=== PATIENT | female | born 1965 | race Caucasian/White ===

== ENCOUNTER → 2016-09-25 | Outpatient (CLI) | payer OTHER ==
[~2016-09-25] MED LIST: IBUP-1050 PO; LEVO125T4 PO; OMEP20CA9 PO; OPTIRAY 320 IV PRN; [UNRECOGNIZED DRUG - CODE] PO
--- NOTE | 2016-09-25 15:25 | DIAGNOSTIC IMAGING REPORT ---
CT OF THE ABDOMEN AND PELVIS WITH CONTRAST CLINICAL HISTORY: Left upper quadrant abdominal pain, bloating and elevated alkaline phosphatase. COMPARISON STUDY: CT of the abdomen and pelvis March 08, 2014 and renal ultrasound August 31, 2014. TECHNIQUE: Following IV administration of 120 mL of Optiray-320, axial images of the abdomen and pelvis were obtained from the lung bases to the proximal femurs. Images were reviewed in the axial, sagittal, and coronal planes. IV contrast was administered without complication. A dose lowering technique was utilized adhering to the principles of ALARA. Oral contrast was administered. CT DOSE: 649.72 mGycm FINDINGS: Geographic hypodensity within the liver, most evident within the left hepatic lobe reflects fatty infiltration. A few subcentimeter hepatic lesions are too small to characterize but likely benign. The spleen, adrenal glands, kidneys and pancreas are unremarkable. There is no hydronephrosis. No biliary or pancreatic ductal dilatation is present. There is no peripancreatic or pericholecystic infiltration. There is no evidence for a bowel obstruction. The appendix is normal. There are scattered colonic diverticula without evidence for acute diverticulitis. Submucosal fat deposition within the colon is noted. There is no lymphadenopathy. No suspicious skeletal lesions are identified. No free air is evident. There is no fluid collection to suggest an abscess. IMPRESSION: 1. No acute process within the abdomen or pelvis. 2. Fatty infiltration of the liver. 3. Submucosal fat deposition within portions of the colon, a nonspecific finding which can be seen in setting of chronic inflammation. No CT evidence of acute colitis. Electronically signed by: Heber Lugo M.D. 09/25/2016 3:23 PM Dictated Date/Time: 09/25/2016 3:16 PM
== END | disposition home or self-care (01) ==
LOC: C.CTS 14:00
PROVIDERS: ATTEND Physician Assistant
DX: R10.12 Left upper quadrant pain (principal); R14.0 Abdominal distension (gaseous); R74.8 Abnormal levels of other serum enzymes; K76.0 Fatty (change of) liver, not elsewhere classified

== ENCOUNTER → 2016-12-05 | Outpatient (CLI) | payer OTHER ==
[~2016-12-05] MED LIST changes: -OPTIRAY 320 IV PRN
--- NOTE | 2016-12-06 08:13 | MAMMOGRAPHY REPORT ---
BILATERAL DIGITAL SCREENING MAMMOGRAM TOMOSYNTHESIS WITH CAD: 12/05/2016 CLINICAL HISTORY: Routine screening. Patient has no complaints. TECHNIQUE: Breast tomosynthesis in addition to standard 2D mammography was performed. Current study was also evaluated with a Computer Aided Detection (CAD) system. COMPARISON: Comparison is made to exams dated: 10/23/2013 mammogram and 10/02/2013 mammogram - [facility]. BREAST COMPOSITION: The tissue of both breasts is heterogeneously dense, which may obscure small mas ses. FINDINGS: No suspicious mass, architectural distortion or cluster of microcalcifications is seen. IMPRESSION: ACR BI-RADS CATEGORY 1: NEGATIVE There is no mammographic evidence of malignancy. A 1 year screening mammogram is recommended. The pa tient will receive written notification of the results. Approximately 10% of breast cancers are not detected with mammography. A negative mammographic report should not delay biopsy if a clinically suggestive mass is present. Shannen reyes/penaubrie:12/05/2016 17:33:02 Stone Unloader: Daphney ISAACS(Fuentes)(Chinmay)(BD), [facility] letter sent: Normal 1/2 BI-RADS Code: ACR BI-RADS Category 1: Negative
== END | disposition home or self-care (01) ==
LOC: C.MAMM 12:20
PROVIDERS: ATTEND Physician Assistant
DX: Z12.31 Encounter for screening mammogram for malignant neoplasm of breast (principal)

== ENCOUNTER 2017-01-21 11:06 | Emergency (ER) | payer OTHER ==
[~2017-01-21] VITALS: Ht 165.1 cm; Wt 75.0 kg
[~2017-01-21 11:06] MED LIST changes: -LEVO125T4 PO; +LEVO125T5 PO
[2017-01-21 11:15] VITALS: TEMP 36.6; Ht 165.1 cm; Wt 75.0 kg
[2017-01-21] MEDS ORDERED: LISI20TA3 PO (11:30)
[2017-01-21] MEDS ORDERED: LEVO100T PO (11:30)
[2017-01-21] MEDS ORDERED: AMIT75TA2 PO (11:31)
[2017-01-21 12:02] LABS: URINE APPEARANCE CLOUDY (CLEAR); URINE COLOR DK YELLOW; URINE EPITHELIAL CELL AUTO >30 /lpf (0-5); URINE NITRITE NEG (NEG); URINE SPECIFIC GRAVITY 1.025 (1.000-1.030); UROBILINOGEN NEG (NEG); ZZUR CULT IF INDIC CLEAN CATCH YES
[2017-01-21 12:08] LABS: BASO % 0.6 %; BASO ABS # 0.04 K/uL (0-0.2); COMPLETE YES; EOS % 3.2 %; HEMATOCRIT 45.7 % (37-47); IG% 0.3 %; LYMPH % 13.8 %; LYMPH ABS # 0.95 K/uL (1.2-3.4); MEAN CELL VOLUME 98.3 fL (80-100); MEAN CORPUSCULAR HEMOGLOBIN 33.3 pg (25-34); MEAN CORPUSCULAR HGB CONC 33.9 g/dl (32-36); MEAN PLATELET VOLUME 10.1 fL (7.4-10.4); MONO % 12.8 %; NEUT % 69.3 %; PLATELET COUNT 274 K/uL (130-400); RED BLOOD COUNT 4.65 M/uL (4.2-5.4); WHITE BLOOD COUNT 6.88 K/uL (4.8-10.8)
[2017-01-21 12:15] LABS: MANUAL MICROSCOPIC REQUIRED? NO; REVIEW REQ? NO; URINE BILIRUBIN NEG (NEG)
[2017-01-21 12:19] LABS: BUN/CREATININE RATIO 5.8 (10-20); CALCIUM 9.1 mg/dl (8.5-10.1); CREATININE 0.84 mg/dl (0.60-1.20); POTASSIUM 3.3 mmol/L (3.5-5.1)
[2017-01-21 12:22] LABS: ALB/GLOB RATIO 0.8 (0.9-2)
[2017-01-21] MEDS ORDERED: ONDANSETRON INJ 2 MG/ML 2 ML VIAL IV STA (12:26)
[2017-01-21] MEDS ORDERED: HYDROmorphone INJ 0.5 MG/0.5 ML SYR IV STA ×2 (12:26→15:07)
[2017-01-21] MEDS ORDERED: OPTIRAY 320 IV PRN (13:00)
--- NOTE | 2017-01-21 13:35 | DIAGNOSTIC IMAGING REPORT ---
CT ABD/PELVIS IV CONTRAST ONLY CLINICAL HISTORY: Left lower quadrant abdominal pain HISTORY OF DIVERTICULITIS COMPARISON STUDY: 09/25/2016 TECHNIQUE: Following the IV administration of 94 mL of Optiray-320, CT scan of the abdomen and pelvis was performed from the lung bases to the proximal femurs. Images are reviewed in the axial, sagittal, and coronal planes. IV contrast was administered without complication. A dose lowering technique was utilized adhering to the principles of ALARA. CT DOSE: 361.80 mGy.cm FINDINGS: Lower chest: The heart is normal in size and configuration, without pericardial effusion. The lung bases and pleural spaces are clear. Liver: There is hepatic steatosis. No focal masses are visualized. Gallbladder: Unremarkable. Spleen: Normal in size and attenuation. Pancreas: Unremarkable. Adrenal glands: Unremarkable. Kidneys: There is symmetric renal cortical enhancement. The kidneys are normal in size without hydronephrosis. Bowel: There are no transition zones indicate bowel obstruction. There is no acute diverticulitis. The appendix appears normal. There is borderline bowel wall thickening involving the ascending colon Peritoneum: There is no intraperitoneal free air or abdominal ascites. Vasculature: The abdominal aorta is normal in course and caliber. Adenopathy: None. Pelvic viscera: The bladder, and pelvic viscera are unremarkable. Skeletal structures: No destructive osseous lesions are seen. IMPRESSION: 1. No evidence of bowel obstruction. No evidence of free air 2. Normal appendix. No evidence of acute diverticulitis 3. Hepatic steatosis 4. Borderline bowel wall thickening involving the ascending colon Electronically signed by: Delvin Fisher M.D. 01/21/2017 1:33 PM Dictated Date/Time: 01/21/2017 1:29 PM
[2017-01-21] MEDS ORDERED: AMOXICILLIN/CLAVULANATE TAB 875 MG TAB PO ONE (15:15)
[2017-01-21] MEDS ORDERED: AMOX875T PO (15:35)
[2017-01-21] MEDS ORDERED: TRAM-453 PO (15:35)
[2017-01-21] MEDS ORDERED: DICY20TA35 PO (15:35)
[2017-01-21] MEDS ORDERED: KETOROLAC TROMETHAMINE 30 MG/ML VIAL IV STA (16:04)
[2017-01-21 16:06] VITALS: BP 153/100; PULSE 98; O2SAT 97
--- NOTE | 2017-01-21 18:16 | EMERGENCY ROOM VISIT NOTE ---
History Report prepared by Maddie: Nay Marshall Under the Supervision of: Dr. Eder Saavedra M.D. First contact with patient: 11:55 Chief Complaint: ABDOMINAL PAIN Stated Complaint: SEVERE LEFT ABDOMINAL PAIN,LEFT HIP AND SIDE PAIN Nursing Triage Summary: patient to ed via triage for abdominal pain x three days, states "I have a hx of diverticulosis, and have been getting worsening pain in the lower left side, its wrapping to my back a little now" History of Present Illness The patient is a 51 year old female who presents to the Emergency Room with complaints of worsening left lower abdominal pain beginning 3 days ago. The patient describes the pain as contractions. She also complains of fevers and chills. The patient reports that she has had blood in her stool today but that she has internal and external hemorrhoids. She also reports having constipation. Pt denies LOC, headache, diaphoresis, visual changes, neck pain, chest pain, breathing difficulties, nausea, vomiting, back pain, melena, urinary symptoms, numbness, weakness, lymphadenopathy, rash, or other complaints. She reports a history of diverticulosis. Source of History: patient Onset: 3 days ago Position: abdomen (LLQ) Timing: worsening Associated Symptoms: + fevers, + chills, No chest pain Review of Systems See HPI for pertinent positives and negatives. A total of ten systems were reviewed and were otherwise negative. Past Medical & Surgical Medical Problems: (1) Acid reflux (2) Hypertension Family History Cancer Diabetes mellitus FH: heart disease Hypertension Social History Smoking Status: Never Smoker Marital Status: in relationship Housing Status: lives with significant other Current/Historical Medications Scheduled Amitriptyline Hcl (Elavil), 75 MG PO HS Amoxicillin & Pot Clavulanate (Augmentin 875-125 mg), 875 MG PO BID Levothyroxine Sodium (Synthroid), 100 MCG PO DAILY Lisinopril (Prinivil), 20 MG PO DAILY Omeprazole (Prilosec), 20 MG PO QAM Scheduled PRN Dicyclomine Hcl (Bentyl), 20 MG PO QID PRN for Pain Nifedipine (Nifedipine), 10 MG PO HS PRN for . Tramadol Hcl (Ultram), 1 TAB PO Q6H PRN for Pain Allergies Coded Allergies: No Known Allergies (Verified , 01/21/17) Physical Exam Vital Signs Date Time Temp Pulse Resp B/P (MAP) Pulse Ox O2 Delivery O2 Flow Rate FiO2 01/21/17 16:06 98 16 153/100 97 01/21/17 15:20 102 18 158/112 91 Room Air 01/21/17 14:01 94 18 150/99 96 01/21/17 11:15 36.6 108 20 130/81 100 Room Air Physical Exam GENERAL: Awake, alert, uncomfortable-appearing, in no distress HENT: Normocephalic, atraumatic. Oropharynx unremarkable. EYES: Normal conjunctiva. Sclera non-icteric. NECK: Supple. No nuchal rigidity. FROM. No JVD. RESPIRATORY: Clear to auscultation. CARDIAC: Regular rate, normal rhythm. Extremities warm and well perfused. Pulses equal. ABDOMEN: Soft, non-distended. Left lower quadrant tenderness. No rebound or guarding. No masses. RECTAL: Deferred. MUSCULOSKELETAL: Chest examination reveals no tenderness. The back is symmetrical on inspection without obvious abnormality. There is left CVA tenderness to palpation. No joint edema. LOWER EXTREMITIES: Calves are equal size bilaterally and non-tender. No edema. No discoloration. NEURO: Normal sensorium. No sensory or motor deficits noted. SKIN: No rash or jaundice noted. Medical Decision & Procedures ER Provider Diagnostic Interpretation: Radiology results as stated below per my review and radiologist interpretation: CT ABD/PELVIS IV CONTRAST ONLY CLINICAL HISTORY: Left lower quadrant abdominal pain HISTORY OF DIVERTICULITIS COMPARISON STUDY: 09/25/2016 TECHNIQUE: Following the IV administration of 94 mL of Optiray-320, CT scan of the abdomen and pelvis was performed from the lung bases to the proximal femurs. Images are reviewed in the axial, sagittal, and coronal planes. IV contrast was administered without complication. A dose lowering technique was utilized adhering to the principles of ALARA. CT DOSE: 361.80 mGy.cm FINDINGS: Lower chest: The heart is normal in size and configuration, without pericardial effusion. The lung bases and pleural spaces are clear. Liver: There is hepatic steatosis. No focal masses are visualized. Gallbladder: Unremarkable. Spleen: Normal in size and attenuation. Pancreas: Unremarkable. Adrenal glands: Unremarkable. Kidneys: There is symmetric renal cortical enhancement. The kidneys are normal in size without hydronephrosis. Bowel: There are no transition zones indicate bowel obstruction. There is no acute diverticulitis. The appendix appears normal. There is borderline bowel wall thickening involving the ascending colon Peritoneum: There is no intraperitoneal free air or abdominal ascites. Vasculature: The abdominal aorta is normal in course and caliber. Adenopathy: None. Pelvic viscera: The bladder, and pelvic viscera are unremarkable. Skeletal structures: No destructive osseous lesions are seen. IMPRESSION: 1. No evidence of bowel obstruction. No evidence of free air 2. Normal appendix. No evidence of acute diverticulitis 3. Hepatic steatosis 4. Borderline bowel wall thickening involving the ascending colon Electronically signed by: Delvin Fisher M.D. 01/21/2017 1:33 PM Dictated Date/Time: 01/21/2017 1:29 PM Laboratory Results 01/21/17 11:45 Red Blood Count 4.65, Mean Corpuscular Volume 98.3, Mean Corpuscular Hemoglobin 33.3, Mean Corpuscular Hemoglobin Concent 33.9, Mean Platelet Volume 10.1, Neutrophils (%) (Auto) 69.3, Lymphocytes (%) (Auto) 13.8, Monocytes (%) (Auto) 12.8, Eosinophils (%) (Auto) 3.2, Basophils (%) (Auto) 0.6, Neutrophils # (Auto ) 4.77, Lymphocytes # (Auto) 0.95, Monocytes # (Auto) 0.88, Eosinophils # (Auto ) 0.22, Basophils # (Auto) 0.04 01/21/17 11:45 Test 01/21/17 11:45 White Blood Count 6.88 K/uL (4.8-10.8) Red Blood Count 4.65 M/uL (4.2-5.4) Hemoglobin 15.5 g/dL (12.0-16.0) Hematocrit 45.7 % (37-47) Mean Corpuscular Volume 98.3 fL (80-100) Mean Corpuscular Hemoglobin 33.3 pg (25-34) Mean Corpuscular Hemoglobin Concent 33.9 g/dl (32-36) Platelet Count 274 K/uL (130-400) Mean Platelet Volume 10.1 fL (7.4-10.4) Neutrophils (%) (Auto) 69.3 % Lymphocytes (%) (Auto) 13.8 % Monocytes (%) (Auto) 12.8 % Eosinophils (%) (Auto) 3.2 % Basophils (%) (Auto) 0.6 % Neutrophils # (Auto) 4.77 K/uL (1.4-6.5) Lymphocytes # (Auto) 0.95 K/uL (1.2-3.4) Monocytes # (Auto) 0.88 K/uL (0.11-0.59) Eosinophils # (Auto) 0.22 K/uL (0-0.5) Basophils # (Auto) 0.04 K/uL (0-0.2) RDW Standard Deviation 43.9 fL (36.4-46.3) RDW Coefficient of Variation 12.3 % (11.5-14.5) Immature Granulocyte % (Auto) 0.3 % Immature Granulocyte # (Auto) 0.02 K/uL (0.00-0.02) Urine Color DK YELLOW Urine Appearance CLOUDY (CLEAR) Urine pH 6.0 (4.5-7.5) Urine Specific Bryan 1.025 (1.000-1.030) Urine Protein NEG (NEG) Urine Glucose (UA) NEG (NEG) Urine Ketones TRACE (NEG) Urine Occult Blood NEG (NEG) Urine Nitrite NEG (NEG) Urine Bilirubin NEG (NEG) Urine Urobilinogen NEG (NEG) Urine Leukocyte Esterase SMALL (NEG) Urine WBC (Auto) 5-10 /hpf (0-5) Urine RBC (Auto) 0-4 /hpf (0-4) Urine Hyaline Casts (Auto) 1-5 /lpf (0-5) Urine Epithelial Cells (Auto) >30 /lpf (0-5) Urine Bacteria (Auto) 1+ (NEG) Anion Gap 6.0 mmol/L (3-11) Est Creatinine Clear Calc Drug Dose 80.3 ml/min Estimated GFR () 93.3 Estimated GFR (Non- 80.5 BUN/Creatinine Ratio 5.8 (10-20) Calcium Level 9.1 mg/dl (8.5-10.1) Total Bilirubin 0.4 mg/dl (0.2-1) Aspartate Amino Transf (AST/SGOT) 67 U/L (15-37) Alanine Aminotransferase (ALT/SGPT) 43 U/L (12-78) Alkaline Phosphatase 133 U/L (45-117) Total Protein 9.6 gm/dl (6.4-8.2) Albumin 4.4 gm/dl (3.4-5.0) Globulin 5.2 gm/dl (2.5-4.0) Albumin/Globulin Ratio 0.8 (0.9-2) Lipase 196 U/L (73-393) Laboratory results reviewed by me Medications Administered Medications (Trade) Dose Ordered Sig/Milly Route Start Time Stop Time Status Last Admin Dose Admin Hydromorphone HCl (Dilaudid Inj) 0.5 mg NOW STAT IV 01/21/17 12:26 01/21/17 12:27 DC 01/21/17 12:45 0.5 MG Ondansetron HCl (Zofran Inj) 4 mg NOW STAT IV 01/21/17 12:26 01/21/17 12:27 DC 01/21/17 12:45 4 MG Amoxicillin/ Clavulanate Potassium (Augmentin Tab) 875 mg ONE ONCE PO 01/21/17 15:15 01/21/17 15:16 DC 01/21/17 15:15 875 MG Hydromorphone HCl (Dilaudid Inj) 0.5 mg NOW STAT IV 01/21/17 15:07 01/21/17 15:10 DC 01/21/17 15:07 0.5 MG Ketorolac Tromethamine (Toradol Inj) 15 mg NOW STAT IV 01/21/17 16:04 01/21/17 16:06 DC 01/21/17 16:10 15 MG ED Course 1222: The patient was evaluated in room C5. A complete history and physical exam was performed. 1226: Ordered Zofran Inj 4 mg IV, Dilaudid Inj 0.5 mg IV. 1507: Ordered Dilaudid Inj 0.5 mg IV. 1515: Ordered Augmentin Tab 875 mg PO. 1604: Ordered Toradol Inj 15 mg IV. 1610: I reevaluated the patient. Discussed results and discharge instructions: She verbalized understanding and agreement. The patient is ready for discharge. Medical Decision Triage Nursing notes reviewed. The patient's presentation and history were concerning for flank pain. Etiologies such as kidney stone, UTI, appendicitis, diverticulitis, obstruction , inflammatory bowel disease, PUD, biliary pathology, pancreatitis, mesenteric ischemia, aortic pathology, infections, genitourinary, perforated viscus, as well as others were entertained. The patient was evaluated. She was given a dose of IV Dilaudid and Zofran for symptom control. She was counseled on alcohol use. The patient had blood work obtained. Urinalysis ordered. Urinalysis was somewhat concerning for infection. Her CT scan revealed some bowel wall thickening but more so on the right side. There is no clear evidence of diverticulitis. No kidney stones noted. Patient did require second dose of Dilaudid and was also given a dose of Toradol. She was treated with oral Augmentin. She does note a long history of bowel related issues including constipation and cramping. The patient will be treated with tramadol, Bentyl, and Augmentin as an outpatient. She has previous referral to gastroenterology at [facility] and I encouraged her to follow up again. She has not had a colonoscopy. She will also follow-up with her primary physician. If she worsens in any way she will be back. I gave my usual and customary discussion regarding this issue. By the evaluation outlined above other emergent etiologies such as those listed in the differential, as well as others, were deemed relatively unlikely. The patient was educated about the findings as listed above. All questions were answered and the patient was pleased with the treatment. Return instructions were outlined and the patient was discharged in stable condition. The patient was referred to GI and PCP for follow-up for a recheck of the current condition. Medication Reconcilliation Current Medication List: was personally reviewed by me Blood Pressure Screening Patient's blood pressure: Normal blood pressure Impression Primary Impression: Flank pain Additional Impression: UTI (urinary tract infection) Scribe Attestation The scribe's documentation has been prepared under my direction and personally reviewed by me in its entirety. I confirm that the note above accurately reflects all work, treatment, procedures, and medical decision making performed by me. Departure Information Dispostion Home / Self-Care Prescriptions Tramadol Hcl (ULTRAM) 50 Mg Tab 1 TAB PO Q6H Y for Pain, #12 TAB Prov: Eder Saavedra MD 01/21/17 Dicyclomine Hcl (BENTYL) 20 Mg Tab 20 MG PO QID Y for Pain, #20 TAB Prov: Eder Saavedra MD 01/21/17 Amoxicillin & Pot Clavulanate (Augmentin 875-125 mg) 1 Tab Tab 875 MG PO BID for 7 Days, #14 TAB Prov: Eder Saavedra MD 01/21/17 Referrals No Doctor, Assigned (PCP) Forms Call Back Authorization, HOME CARE DOCUMENTATION FORM, IMPORTANT VISIT INFORMATION Patient Instructions [facility] Additional Instructions DO NOT drive, drink alcohol, operate machinery, or perform dangerous activities today. You were given medications in the ER that can affect your ability to safely function or operate a vehicle. Amoxicillin Clavulanate (Augmentin) 875mg: Take one pill twice daily for 7 days for your bowel infection. All antibiotics can cause diarrhea. If this occurs and you feel worse or it does not resolve in 1-2 days follow up with your doctor or return to the Emergency Department as this could be signs of serious underlying problems. Any medication can cause an allergic reaction, stop the pills immediately and return to the ER for rash, hives, breathing difficulties, or swelling. Bentyl(dicyclomine) 20 mg: Take one tablet 4 times daily as needed for abdominal pain. If 20 mg does not seem to be enough you may increase to 40 mg 4 times daily after one week. If you do not have any results with this medication do not continue past 2 weeks from the start date. Discontinue this medication if you develop any rash, itching, increased abdominal pain, heartburn , increased nausea, constipation, or as needed. Tramadol 50 m pill every four hours as needed for breakthrough pain. Avoid alcohol, operating machinery or dangerous equipment, working on ladders or roofs , DRIVING, or situations where being under the influence may be dangerous. It is recommended to use a stool softener such as Colace, 100mg twice daily while taking this medication to avoid constipation. Ibuprofen(Motrin, Advil) may be used for fever or pain. Use 600mg every six hours as needed. Take with food. Avoid using more than 2400mg in a 24 hour period. Do not use 2400mg per day for more than three consecutive days without physician direction. Prolonged inappropriate use can lead to stomach upset or ulcers. (AND/OR) Acetaminophen(Tylenol) may be used for fever or pain. Use 1000mg every six hours as needed. Avoid using more than 4000mg in a 24 hour period. Rest and drink plenty of fluids as tolerated. Slow sips of water or sports drinks are recommended instead of large amounts all at once. Continue current medications. Once your stomach is settled start with a clear liquid diet (jello, soup broth, etc.) and then advance as tolerated. You should avoid full, heavy meals for about 24 hrs from the time your symptoms resolved. Return to the ER immediately for worsening or persistent abdominal pain, vomiting, fevers, chest pains, difficulty breathing, black or bloody stools, worsening of your condition, or as needed. Follow up with your primary physician in 2-3 days for a recheck of your current condition. Follow-up with michelle BRUCE. The numbers listed below under Dr. aguilar. Problem Qualifiers
== END 2017-01-21 16:17 | disposition home or self-care (01) ==
LOC: C.EDB 11:07 → C.EDC 16:17
DX: R10.32 Left lower quadrant pain (principal); N39.0 Urinary tract infection, site not specified; R50.9 Fever, unspecified; K59.00 Constipation, unspecified; K21.9 Gastro-esophageal reflux disease without esophagitis; I10 Essential (primary) hypertension; Z79.899 Other long term (current) drug therapy; Z87.19 Personal history of other diseases of the digestive system; Z82.49 Family history of ischemic heart disease and other diseases of the circulatory system; Z83.3 Family history of diabetes mellitus

== ENCOUNTER 2017-01-25 12:36 | Inpatient (IN) | payer OTHER ==
[~2017-01-25] VITALS: Ht 165.1 cm; Wt 76.3 kg
[~2017-01-25 12:36] MED LIST changes: +AMIT75TA2 PO; +AMOX875T PO; +DICY20TA35 PO; -IBUP-1050 PO; +LEVO100T PO; -LEVO125T5 PO; +LISI20TA3 PO; +TRAM-453 PO
[2017-01-25] MEDS ORDERED: ONDANSETRON INJ 2 MG/ML 2 ML VIAL IV STA (13:03)
--- NOTE | 2017-01-25 13:15 | EMERGENCY ROOM VISIT NOTE ---
History First contact with patient: 12:51 Chief Complaint: ABDOMINAL PAIN Stated Complaint: SEVERE PAIN IN L LOWER/UPPER ABD HIP/BACK AREA Nursing Triage Summary: pt presents for evaluation of continued abdominal pain, pt eval earlier in the week for same symptoms. History of Present Illness The patient is a 51 year old female who presents to the Emergency Room with complaints of diffuse abdominal pain that has been going on for approximately 10 days. The patient was seen in the emergency department 5 days ago. Lab work and a CT scan were performed. She was told that she might have an infection in her colon. She was started on antibiotics. She was also given Ultram for pain. The pain has not gotten any better. She has had hot and cold sweats. She did not take her temperature at home. She reports being nauseated from the Ultram. She has had small, loose bowel movements. She denies any blood in her stool. Review of Systems 10 system review performed and negative unless noted in HPI or below Past Medical/Surgical History Medical Problems: (1) Acid reflux (2) Acid reflux (3) Hypertension (4) Hypertension (5) possible sepsis, paniagua colitis, UTI Family History Cancer Cancer Diabetes mellitus Diabetes mellitus FH: heart disease FH: heart disease Hypertension Hypertension Social History Smoking Status: Never Smoker Alcohol Use: occasionally Drug Use: none Marital Status: in relationship Housing Status: lives with significant other Occupation Status: unemployed Current/Historical Medications Scheduled Amitriptyline Hcl (Elavil), 75 MG PO HS Amoxicillin & Pot Clavulanate (Augmentin 875-125 mg), 875 MG PO BID Levothyroxine Sodium (Synthroid), 100 MCG PO DAILY Lisinopril (Prinivil), 20 MG PO DAILY Omeprazole (Prilosec), 20 MG PO QAM Scheduled PRN Dicyclomine Hcl (Bentyl), 20 MG PO QID PRN for Pain Ibuprofen Tab (Advil), 200-600 MG PO Q4H PRN for Pain Nifedipine (Nifedipine), 10 MG PO HS PRN for . Allergies Coded Allergies: Tramadol (Unverified Adverse Reaction, Unknown, NAUSEA, 01/25/17) Physical Exam Vital Signs Date Time Temp Pulse Resp B/P (MAP) Pulse Ox O2 Delivery O2 Flow Rate FiO2 01/25/17 16:35 100 20 121/87 100 Room Air 01/25/17 14:52 93 18 127/86 99 Room Air 01/25/17 14:04 89 18 101/66 95 Room Air 01/25/17 12:48 36.7 100 20 125/93 93 Room Air Physical Exam VITALS: Vitals are noted on the nurse's note and reviewed by myself. Vital signs stable. GENERAL: 51-year-old female, in mild discomfort, SKIN: The skin was without rashes, erythema, edema, or bruising. HEAD: Normocephalic atraumatic. MOUTH: Mucous membranes moist NECK: Supple without nuchal rigidity No JVD. HEART: Regular rate and rhythm without murmurs gallops or rubs. LUNGS: Clear to auscultation bilaterally without wheezes, rales or rhonchi. No accessory muscle use. ABDOMEN: Positive bowel sounds x 4.Soft, tenderness to palpation particularly in the epigastric and left lower quadrant. No guarding or rebound tenderness. MUSCULOSKELETAL: No muscle atrophy, erythema, or edema noted.. Strength 5/5 throughout. NEURO: Patient was alert and oriented to person place and time. Normal sensation to touch. No focal neurological deficits. Medical Decision & Procedures ER Provider Diagnostic Interpretation: CT abdomen and pelvis with IV and oral contrast Patient Name: MARIBEL POWERS Unit Number: [id number] Dictated: 01/25/171629 Transcribed: 01/25/171629 ARG Printed Date/Time: [~ rep prt dt]/[~ rep prt tm] [~ rep ct labl] - [~ rep ct ivnm] [facility] [place] [place] [address] Dictated: 01/25/171629 Transcribed: 01/25/171629 ARG Printed Date/Time: [~ rep prt dt]/[~ rep prt tm] [~ rep ct labl] - [~ rep ct ivnm] IMPRESSION: 1. Progressive colonic wall thickening which now involves the entire colon. The findings are indicative of a pancolitis 2. Slight increased prominence of a nonspecific 19 mm hypodensity within the medial segment of the left hepatic lobe. Electronically signed by: Delvin Fisher M.D. 01/25/2017 4:38 PM Dictated Date/Time: 01/25/2017 4:30 PM The status of this report is Signed. Draft = Not yet reviewed or approved by Radiologist. Signed = Reviewed and approved by Radiologist. <AttendingPhy></AttendingPhy> <FamilyPhy>Uzma Garcia PA-C</FamilyPhy> < PrimaryPhy>Uzma Garcia PA-C</PrimaryPhy> <UnitNumber>[id number]</ UnitNumber> <VisitNumber>[id number]</VisitNumber> <PatientName>MARIBEL POWERS Anmol< /PatientName> <DateOfBirth>1965</DateOfBirth> <Location>C.EDB</Location> < ServiceDate>01/25/17</ServiceDate> <MNE>ESINDI</MNE> <OrderingPhy>Trish Long PA-C</OrderingPhy> <OrderingPhyMNE>f rep ord dr hernandez</OrderingPhyMNE> < DictatingPhyMNE>f rep dict dr hernandez</DictatingPhyMNE> <CCListMNE>f rep ct mne</ CCListMNE> <AdmittingPhyMNE>f pt admit dr hernandez</AdmittingPhyMNE> <AttendingPhyMNE >f pt attend dr hernandez</AttendingPhyMNE> <ConsultingPhyMNE>f pt consult dr hernandez</ConsultingPhyMNE> <FamilyPhyMNE>f pt fam dr hernandez</FamilyPhyMNE> <OtherPhyMNE>f pt other dr hernandez</OtherPhyMNE> < PrimaryPhyMNE>f pt prim care dr hernandez</PrimaryPhyMNE> <ReferringPhyMNE>f pt referring dr hernandez</ReferringPhyMNE> Laboratory Results 01/25/17 13:16 Red Blood Count 4.11, Mean Corpuscular Volume 95.4, Mean Corpuscular Hemoglobin 33.8, Mean Corpuscular Hemoglobin Concent 35.5, Mean Platelet Volume 10.5, Neutrophils (%) (Auto) 83.1, Lymphocytes (%) (Auto) 4.2, Monocytes (%) (Auto) 11.1, Eosinophils (%) (Auto) 0.8, Basophils (%) (Auto) 0.2, Neutrophils # (Auto ) 15.20, Lymphocytes # (Auto) 0.76, Monocytes # (Auto) 2.03, Eosinophils # (Auto ) 0.15, Basophils # (Auto) 0.03 01/25/17 13:16 01/25/17 13:59 Test 01/25/17 13:16 01/25/17 13:59 01/25/17 14:45 01/25/17 17:02 White Blood Count 18.28 K/uL (4.8-10.8) Red Blood Count 4.11 M/uL (4.2-5.4) Hemoglobin 13.9 g/dL (12.0-16.0) Hematocrit 39.2 % (37-47) Mean Corpuscular Volume 95.4 fL (80-100) Mean Corpuscular Hemoglobin 33.8 pg (25-34) Mean Corpuscular Hemoglobin Concent 35.5 g/dl (32-36) Platelet Count 162 K/uL (130-400) Mean Platelet Volume 10.5 fL (7.4-10.4) Neutrophils (%) (Auto) 83.1 % Lymphocytes (%) (Auto) 4.2 % Monocytes (%) (Auto) 11.1 % Eosinophils (%) (Auto) 0.8 % Basophils (%) (Auto) 0.2 % Neutrophils # (Auto) 15.20 K/uL (1.4-6.5) Lymphocytes # (Auto) 0.76 K/uL (1.2-3.4) Monocytes # (Auto) 2.03 K/uL (0.11-0.59) Eosinophils # (Auto) 0.15 K/uL (0-0.5) Basophils # (Auto) 0.03 K/uL (0-0.2) RDW Standard Deviation 41.5 fL (36.4-46.3) RDW Coefficient of Variation 11.9 % (11.5-14.5) Immature Granulocyte % (Auto) 0.6 % Immature Granulocyte # (Auto) 0.11 K/uL (0.00-0.02) Anion Gap 7.0 mmol/L (3-11) Est Creatinine Clear Calc Drug Dose 82.8 ml/min Estimated GFR () 97.5 Estimated GFR (Non- 84.1 BUN/Creatinine Ratio 9.5 (10-20) Calcium Level 8.8 mg/dl (8.5-10.1) Total Bilirubin 0.8 mg/dl (0.2-1) Alanine Aminotransferase (ALT/SGPT) 19 U/L (12-78) Alkaline Phosphatase 134 U/L (45-117) Total Protein 8.2 gm/dl (6.4-8.2) Albumin 3.3 gm/dl (3.4-5.0) Globulin 4.9 gm/dl (2.5-4.0) Albumin/Globulin Ratio 0.7 (0.9-2) Lipase 553 U/L (73-393) Aspartate Amino Transf (AST/SGOT) 10 U/L (15-37) Urine Color DK YELLOW Urine Appearance CLOUDY (CLEAR) Urine pH 5.5 (4.5-7.5) Urine Specific [place] 1.027 (1.000-1.030) Urine Protein 2+ (NEG) Urine Glucose (UA) NEG (NEG) Urine Ketones 1+ (NEG) Urine Occult Blood NEG (NEG) Urine Nitrite POS (NEG) Urine Bilirubin NEG (NEG) Urine Urobilinogen NEG (NEG) Urine Leukocyte Esterase SMALL (NEG) Urine WBC (Auto) 10-30 /hpf (0-5) Urine RBC (Auto) 5-10 /hpf (0-4) Urine Hyaline Casts (Auto) 10-30 /lpf (0-5) Urine Epithelial Cells (Auto) >30 /lpf (0-5) Urine Bacteria (Auto) NEG (NEG) Urine Renal Epithelial Cells /lpf (0-5) Urine Pathogenic Casts /lpf (0) Urine Mucus PRESENT (NONE PRSENT) Test 01/25/17 17:20 Medications Administered Medications (Trade) Dose Ordered Sig/Milly Route Start Time Stop Time Status Last Admin Dose Admin Morphine Sulfate (MoRPHine SULFATE INJ) 4 mg Q1H PRN IV 01/25/17 13:15 02/08/17 13:14 01/25/17 14:56 4 MG Ondansetron HCl (Zofran Inj) 4 mg NOW STAT IV 01/25/17 13:03 01/25/17 13:05 DC 01/25/17 13:18 4 MG Sodium Chloride 500 ml @ 999 mls/hr Q31M STAT IV 01/25/17 13:39 01/25/17 14:09 DC 01/25/17 13:39 999 MLS/HR Sodium Chloride 500 ml @ 999 mls/hr Q31M STAT IV 01/25/17 15:10 01/25/17 15:40 DC 01/25/17 15:44 999 MLS/HR Potassium Chloride 100 ml @ 100 mls/hr NOW STAT IV 01/25/17 15:11 01/25/17 16:10 DC 01/25/17 15:44 100 MLS/HR Hydromorphone HCl (Dilaudid Inj) 1 mg NOW STAT IV 01/25/17 16:33 01/25/17 16:34 DC 01/25/17 16:38 1 MG ED Course Patient was seen and examined Vital signs including blood pressure were reviewed medications list was verified with patient Labs were obtained, and a saline lock was established This was medicated with morphine and Zofran. Upon reevaluation, the patient was still complaining of pain. She did require additional narcotics. The patient was hydrated with 1 L of normal saline Imaging was performed and reviewed The findings were discussed with the patient. She was also seen and examined by myself supervising physician who is in agreement with my plan. The patient was discussed with case management The patient was given 1 dose of Invanz I discussed the case with the [facility] hospitalist group. They agreed to admit the patient for further workup and treatment. Medical Decision DIFFERENTIAL DIAGNOSIS: Gastroenteritis, Hepatitis, cholecystitis, cholangitis, biliary colic, pancreatitis, appendicitis, inguinal hernia, nephrolithiasis, inflammatory bowel disease, mesenteric adenitis, peptic ulcer disease, GERD, gastritis, pancreatitis,, bowel obstruction, splenic infarct, diverticulitis, mesenteric ischemia, metabolic, peritonitis, among others. This patient is a 51-year-old female that presents to the emergency department with complaints of worsening abdominal pain and diarrhea. On exam, the patient did have diffuse tenderness of her abdomen. Lab work reveals significant leukocytosis. She is also hyponatremic and hypokalemic. Due to the worsening symptoms and leukocytosis, I opted to CT the patient again. CAT scan is consistent with progressive pancolitis. Patient was seen in the emergency department 5 days ago. She was sent home with Ultram and Augmentin. I do not feel comfortable sending the patient home. She failed outpatient therapy. Given the worsening symptoms and electrolyte abnormalities, I believe she should be admitted to the hospital for further workup and treatment. The hospitalist team is in agreement with this plan. This chart was completed in part utilizing [employer] Speech Voice Recognition software. Attempts were made to minimize the grammatical errors, random word insertions, pronoun errors and incomplete sentences. Any formal questions or concerns about the content, text or information contained within the body of this dictation should be directly addressed to the provider for clarification. Impression Primary Impression: Pancolitis Departure Information Referrals Uzma Garcia PA-C (PCP) Patient Instructions [facility]
[2017-01-25] MEDS: MoRPHine SULFATE 4 MG/ML 1 ML CARP\\VIAL IV PRN ×2 (13:19→14:56)
[2017-01-25 13:28] LABS: BASO % 0.2 %; BASO ABS # 0.03 K/uL (0-0.2); COMPLETE YES; EOS % 0.8 %; HEMATOCRIT 39.2 % (37-47); IG% 0.6 %; LYMPH % 4.2 %; LYMPH ABS # 0.76 K/uL (1.2-3.4); MEAN CELL VOLUME 95.4 fL (80-100); MEAN CORPUSCULAR HEMOGLOBIN 33.8 pg (25-34); MEAN CORPUSCULAR HGB CONC 35.5 g/dl (32-36); MEAN PLATELET VOLUME 10.5 fL (7.4-10.4); MONO % 11.1 %; NEUT % 83.1 %; PLATELET COUNT 162 K/uL (130-400); RED BLOOD COUNT 4.11 M/uL (4.2-5.4); WHITE BLOOD COUNT 18.28 K/uL (4.8-10.8)
[2017-01-25] MEDS ORDERED: SODIUM CHLORIDE 0.9% 500ML 500 ML IV STA ×2 (13:39→15:10)
[2017-01-25] MEDS ORDERED: IBUP-103 PO (13:42)
[2017-01-25 13:48] LABS: ALT/SGPT 19 U/L (12-78); BLOOD UREA NITROGEN 8 mg/dl (7-18); BUN/CREATININE RATIO 9.5 (10-20); CALCIUM 8.8 mg/dl (8.5-10.1); CARBON DIOXIDE 24 mmol/L (21-32); CHLORIDE 92 mmol/L (98-107); CREATININE 0.81 mg/dl (0.60-1.20); GLUCOSE 111 mg/dl (70-99); SODIUM 123 mmol/L (136-145)
[2017-01-25 13:49] LABS: ALB/GLOB RATIO 0.7 (0.9-2); ALKALINE PHOSPHATASE 134 U/L (45-117)
[2017-01-25] MEDS ORDERED: OPTIRAY 320 IV PRN (14:15)
[2017-01-25 14:16] LABS: POTASSIUM 3.2 mmol/L (3.5-5.1)
[2017-01-25 15:03] LABS: URINE APPEARANCE CLOUDY (CLEAR); URINE COLOR DK YELLOW; URINE EPITHELIAL CELL AUTO >30 /lpf (0-5); URINE NITRITE POS (NEG); URINE PH 5.5 (4.5-7.5); URINE SPECIFIC GRAVITY 1.027 (1.000-1.030); UROBILINOGEN NEG (NEG)
[2017-01-25 15:09] LABS: MANUAL MICROSCOPIC REQUIRED? NO; REVIEW REQ? YES
[2017-01-25] MEDS ORDERED: POTASSIUM CHLORIDE 10 MEQ / 100ML WTR IV STA (15:11)
[2017-01-25] MEDS ORDERED: POTASSIUM CHLR 10 MEQ / WTR 10 MEQ IV STA (15:11)
[2017-01-25 15:22] LABS: URINE BILIRUBIN NEG (NEG)
[2017-01-25 15:25] LABS: URINE MUCUS PRESENT (NONE PRSENT)
[2017-01-25] MEDS ORDERED: HYDROmorphone INJ 1 MG/ML SYR IV STA (16:33)
--- NOTE | 2017-01-25 16:40 | DIAGNOSTIC IMAGING REPORT ---
CT ABD/PELVIS IV AND ORAL CONT CLINICAL HISTORY: abd pain diarrhaea leukocytosis COMPARISON STUDY: 01/21/2017, 09/25/2016. TECHNIQUE: Following the IV administration of 115 mL of Optiray-320, CT scan of the abdomen and pelvis was performed from the lung bases to the proximal femurs. Images are reviewed in the axial, sagittal, and coronal planes. IV contrast was administered without complication. A dose lowering technique was utilized adhering to the principles of ALARA. CT DOSE: 459.47 mGy.cm FINDINGS: Lower chest: There are mild basilar atelectatic changes. Liver: There is a nonspecific 19 mm hypodensity within the left hepatic lobe adjacent the falciform ligament. In retrospect this was present on the prior study but appears more apparent on current examination. Condition there are additional few tiny hepatic hypodensities, likely representing cysts Gallbladder: There is mild gallbladder distention. No calculi are visualized. Spleen: Normal in size and attenuation. Pancreas: Unremarkable. Adrenal glands: Unremarkable. Kidneys: There is symmetric renal cortical enhancement. The kidneys are normal in size without hydronephrosis. Bowel: There are no transition zones to indicate bowel obstruction. There is no evidence of acute diverticulitis. There is no evidence of acute appendicitis. There is colonic wall thickening extending from the rectum to the cecum. The findings are indicative of a pancolitis. Peritoneum: There is no intraperitoneal free air or abdominal ascites. Vasculature: The abdominal aorta is normal in course and caliber. Adenopathy: None. Pelvic viscera: The bladder, and pelvic viscera are unremarkable. Skeletal structures: No destructive osseous lesions are seen. IMPRESSION: 1. Progressive colonic wall thickening which now involves the entire colon. The findings are indicative of a pancolitis 2. Slight increased prominence of a nonspecific 19 mm hypodensity within the medial segment of the left hepatic lobe. Electronically signed by: Delvin Fisher M.D. 01/25/2017 4:38 PM Dictated Date/Time: 01/25/2017 4:30 PM
[2017-01-25] MEDS ORDERED: MoRPHine SULFATE 4 MG/ML 1 ML CARP\\VIAL IV STA (17:12)
[2017-01-25] MEDS ORDERED: POLYETHYLENE (MIRALAX) 17 GM PACK PO PRN (17:15)
[2017-01-25] MEDS ORDERED: ERTAPENEM 1 GM ADDVIAL IV ONE (17:15)
[2017-01-25] MEDS ORDERED: MoRPHine SULFATE 4 MG/ML 1 ML CARP\\VIAL IV PRN (17:15)
[2017-01-25] MEDS ORDERED: MAGNESIUM HYDROXIDE SUSP 30 ML UDC PO PRN (17:15)
[2017-01-25] MEDS ORDERED: ALUMINUM/MAGNESIUM/SIMETH (MAALOX MAX) 30 ML UDC PO PRN (17:15)
[2017-01-25] MEDS ORDERED: NIFEdipine 10 MG CAP PO PRN (17:15)
[2017-01-25] MEDS ORDERED: ONDANSETRON INJ 2 MG/ML 2 ML VIAL IV PRN (17:15)
--- NOTE | 2017-01-25 17:33 | History and Physical ---
History & Physical Date of Service Jan 25, 2017. History & Physical possible sepsis, paniagua colitis, UTI, need to rule out Cdiff colitis, [id number]
--- NOTE | 2017-01-25 17:38 | EMERGENCY ROOM VISIT NOTE ---
ED Visit Note First contact with patient: 12:51 I have personally evaluated this patient examined her and reviewed the pertinent labs and data. I have discussed the case with Trish Long, the physician judicial assistant and agree with the plan. Please refer to the PA note. This patient returns after having continuing abdominal pain. She had a CAT scan done the other day which showed colitis. She's been on Augmentin. I am concerned has a white blood cell that is elevated at 18. She also has electrolyte abnormalities with a sodium of 123. On exam, she has mild diffuse tenderness but no peritonitis. I talked to the patient and family and she's had ongoing issues with her intestines although it's worse now. We did repeat a CAT scan given her worsening symptoms and elevated white count, it continues to show pancolitis aches but no other acute abnormalities. We will also add a lactic acid 204 to rule out the possibility of a ischemic colitis. It does not sound like she's had diarrhea has been more in the constipated side. She has been given IV antibiotics in the ER. I do think she needs to be admitted for further treatment and evaluation and correction of her electrolytes.
[2017-01-25 18:30] VITALS: BP 120/82; PULSE 108; TEMP 36.4; O2SAT 98; Ht 165.1 cm; Wt 76.3 kg
[2017-01-25 19:15] VITALS: BP 124/81; PULSE 104; TEMP 37.6; O2SAT 90
--- NOTE | 2017-01-25 19:42 | HISTORY & PHYSICAL EXAMINATION ---
DATE OF ADMISSION: 01/25/2017 CHIEF COMPLAINT: Severe abdominal pain and nauseation. HISTORY OF PRESENT ILLNESS: The patient is a 51-year-old white female, with a significant past medical history of GERD and hypertension, coming to the hospital Emergency Department because of the above chief complaint. The patient complained the diffuse abdominal pain has been going on for approximately 10 days. She was seen in the Emergency Room [address] of abdomen was done; the CT was not remarkable. She was told she may have colon infection and was sent home with Augmentin and oral Ultram for the pain. The patient reports the pain has not got any how better. It is associated with some hot and cold sweats at nighttime, but she did not take the temperature at home. She reports she was feeling nauseated after taking Ultram for the pain, associated with loose bowel movement, had 10 times bowel movement today. She reports some blood in the stool which could possible because of internal and external hemorrhoids, she has it. The diarrhea is dark and water like stools. In the Emergency Room she has no fever, but found to have leukocytosis and hyponatremia. Urine studies show possible UTI and elevated lipase. I was asked to see the patient. When I interviewed the patient she is awake, alert and orientated, is in pain. She looked tired and sick and confirmed the above information. She denied fever, chill, cough or sputum. She denied nausea or vomiting. She denied blood in the stools now. She denied cough, sputum or shortness of breath. She denied chest pain, palpitation or lower extremity swelling. She denied dysuria, urgency or frequencies. She denied facial droop, slurry speeches or local weakness. She denied skin rashes. ALLERGIES: TO TRAMADOL. PAST MEDICAL HISTORY: Like I mentioned above. FAMILY HISTORY: Includes cancer, diabetes, heart disease and hypertension. SOCIAL HISTORY: Never smoked. Occasional alcohol intake. She denied alcohol abuse disorder and denied illicit drug abuse. MEDICATIONS TAKING AT HOME: Include; amitriptyline 75 mg p.o. at bedtime, Augmentin 875/125 one tab p.o. b.i.d., levothyroxine 100 mcg p.o. daily, lisinopril 20 mg p.o. daily and omeprazole 20 mg p.o. daily. She was taking Bentyl 20 mg p.o. q.i.d. p.r.n. for pain, nifedipine 10 mg p.o. at bedtime p.r.n. for hypertension and tramadol one tab p.o. 6 hours p.r.n. for pain. REVIEW OF SYSTEMS: Please see HPI. Otherwise, 14-point organ system review was negative. PHYSICAL EXAMINATION: VITAL SIGNS: Temperature is 36.7, pulse 100, respiratory rate 20, blood pressure 125/93 and pulse ox was 93% on room air. GENERAL: The patient is a white female, awake, alert and orientated. No acute distress. She has mild discomfort. HEAD: Normocephalic. EYES: Pupils are equal, round and responsive to light. Conjunctivae low injection. There was no icterus. EARS: Normal. NOSE: Normal. NECK: Supple. Thyroid has no enlargement. Trachea is midline. LUNGS: Clear to auscultation. No wheezing, rhonchi or crackles. ABDOMEN: Soft, mildly tender to palpations. No rebound. No guarding. EXTREMITIES: Bilateral upper and lower extremities are symmetric. Pulse was positive. No cyanosis, no clubbing or edema. NEUROLOGIC EVALUATION: Cranial nerves II-XII were intact. There were no local deficits. LABORATORY STUDIES: In the Emergency Room; WBC 18, neutrophils 83%, hemoglobin 13 and platelets 162. Sodium was 123, potassium 3.2, BUN 8 and creatinine 0.8. Blood glucose was 111. AST 10, ALT 19, alkaline phosphate 134 and lipase was 553. UA shows positive nitrates and small amount of leukocyte esterase. IMAGING STUDIES: Abdominal CT studies shows progressive chronic wall thickening and possible pancolitis. There was 19 mm hypodensity in the medial segment of the left liver lobe. ASSESSMENT: A 51-year-old white female, with the conditions as below: 1. Pancolitis with abdominal pain; need to rule out Clostridium difficile. 2. Severe leukocytosis; may have sepsis. 3. Urinary tract infection. 4. Hypokalemia. 5. Possible acute pancreatitis. 6. Hyponatremia. 7. History of hypothyroidism. 8. History of anxiety. PLAN: The patient obviously has pancolitis and possible sepsis. She had recent treatment for possible bowel infection with Augmentin. I will treat for pancolitis by giving antibiotic Invanz, but at the same time it is very important to rule out C. diff colitis. Therefore, I ordered the nursing staff to make sure the collection of stool sample for C. diff studies. If the C. diff study is positive we need to change the antibiotic. I would request a GI consultation and give supportive care, morphine for the pain control and Zofran for nauseation. will send chelsea culture and stool hem occult as well. The patient has UTI, I believe, which is covered by Invanz. I have sent a urine culture and stool culture. Check lactase. The patient may have acute pancreatitis as well which is possible from the colitis or dehydration. She had 10 times bowel movements today. Because the liver function is normal now, I would not check the upper quadrant ultrasounds for now. The patient has hypokalemia, we will replace. The patient has 19 mm left lobe of the liver hypodense areas. I have informed the patient about this condition and recommended her to follow up with PCP. History of hypothyroidism and anxiety; we will continue current home medications. We will check TSH. GI and DVT prophylaxis are covered. The patient is a full code. I discussed with the patient and her family about the patient's condition and care of plan. I answered all their questions to their satisfaction. [place]
[2017-01-25] MEDS ORDERED: INFLUENZA ADMINISTRATION CHARGE ONE (20:00)
[2017-01-25] MEDS ORDERED: INFLUENZA VIRUS QUAD VACCINE 0.5 ML SYR IM. ONE (20:00)
[2017-01-25] MEDS: ZOLPIDEM TARTRATE 5 MG TAB PO PRN (20:11)
[2017-01-25 20:52] LABS: INR 1.1 (0.9-1.1); PROTHROMBIN TIME (PATIENT) 11.4 SECONDS (9.0-12.0)
[2017-01-25] MEDS: AMITRIPTYLINE HCL 25 MG TAB PO SCH (21:18)
[2017-01-25] MEDS: NSS + 20MEQ KCL 1000ML 1,000 ML IV SCH (21:18)
[2017-01-25 22:13] VITALS: O2SAT 98
[2017-01-25 23:31] VITALS: BP 105/78; PULSE 111; TEMP 37.5; O2SAT 95
[2017-01-25] MEDS: VANCOMYCIN HCL 125 MG/2.5ML SOLN PO SCH (23:32)
[2017-01-25] MEDS: RASPBERRY SYRUP 5 ML UDP PO SCH (23:32)
[2017-01-25] MEDS: ACETAMINOPHEN 325 MG TAB PO PRN (23:33)
[2017-01-26] VITALS (7 sets, daily range): BP systolic 97–119; BP diastolic 73–85; PULSE 94–108; TEMP 36.3–38.1; O2SAT 94–99
[2017-01-26] MEDS: NSS + 20MEQ KCL 1000ML 1,000 ML IV SCH ×3 (04:03→17:17)
[2017-01-26] MEDS: DICYCLOMINE HCL 20 MG TAB PO PRN (04:03)
[2017-01-26] MEDS: HEPARIN SOD 5000 UNIT/0.5 ML CARP SQ SCH ×3 (05:14→22:39)
[2017-01-26 05:51] LABS: HEMATOCRIT 35.3 % (37-47); MEAN CELL VOLUME 97.5 fL (80-100); MEAN CORPUSCULAR HEMOGLOBIN 32.9 pg (25-34); MEAN CORPUSCULAR HGB CONC 33.7 g/dl (32-36); MEAN PLATELET VOLUME 10.1 fL (7.4-10.4); PLATELET COUNT 211 K/uL (130-400); RED BLOOD COUNT 3.62 M/uL (4.2-5.4)
[2017-01-26 06:30] LABS: BASO % 0.2 %; BASO ABS # 0.02 K/uL (0-0.2); COMPLETE YES; DOHLE BODIES 1+; EOS % 2.5 %; IG% 0.7 %; LYMPH ABS # 0.65 K/uL (1.2-3.4); MONO % 12.8 %; NEUT % 78.8 %; TOXIC GRANULATION 1+; VACUOLIZATION 1+
[2017-01-26] MEDS ORDERED: ACETAMINOPHEN IV 650 MG in EMPTY BAG 0 ML IV PRN (06:30)
[2017-01-26 06:46] LABS: ALT/SGPT 14 U/L (12-78); AST/SGOT 10 U/L (15-37); BLOOD UREA NITROGEN 5 mg/dl (7-18); BUN/CREATININE RATIO 8.4 (10-20); CALCIUM 8.3 mg/dl (8.5-10.1); CARBON DIOXIDE 25 mmol/L (21-32); CHLORIDE 99 mmol/L (98-107); CREATININE 0.61 mg/dl (0.60-1.20); GLUCOSE 75 mg/dl (70-99); MAGNESIUM 1.8 mg/dl (1.8-2.4); POTASSIUM 3.4 mmol/L (3.5-5.1)
[2017-01-26 06:51] LABS: ALB/GLOB RATIO 0.7 (0.9-2); ALKALINE PHOSPHATASE 105 U/L (45-117); PHOSPHORUS 2.4 mg/dl (2.5-4.9)
[2017-01-26 07:17] LABS: SODIUM 131 mmol/L (136-145)
[2017-01-26] MEDS: RASPBERRY SYRUP 5 ML UDP PO SCH ×4 (08:01→19:57)
[2017-01-26] MEDS: VANCOMYCIN HCL 125 MG/2.5ML SOLN PO SCH ×4 (08:01→19:57)
[2017-01-26] MEDS: LISINOPRIL 20 MG TAB PO SCH (08:02)
[2017-01-26] MEDS: LEVOTHYROXINE 100 MCG TAB PO SCH (08:02)
[2017-01-26] MEDS: HYDROmorphone INJ 1 MG/ML SYR IV PRN ×2 (11:43→17:16)
[2017-01-26] MEDS: PANTOprazole INJ 40 MG in SYRINGE 0 ML IV SCH (11:44)
--- NOTE | 2017-01-26 11:48 | Gastrointestinal Consultation ---
Gastrointestinal Consultation Date of Consultation: Jan 26, 2017 Attending Physician: Dr. Gutierrez Consulting Physician: Dr. Hodge Reason for Consultation: C-diff colitis History of Present Illness Patient is a 51 year old female admitted yesterday with leukocytosis, diarrhea, abdominal pain and stools are positive for C-diff. Regarding her story of illness, she reports an onset of mild, diffuse abdominal pain and decreased appetite about 14 days ago, worse in the LLQ. She presented to the ED on this past Sunday (5 days ago) with report of constipation and LLQ pain. CT (with IV, no po contrast) at that time was normal. She was prescribed Augmentin which did not improve her pain or diarrhea. CT on arrival yesterday with [place] colitis. She started Vanco 125mg QID yesterday and is passing fewer BMs today. Abdominal distention persists but is improved. No blood in BMs. WBC was 18 yesterday, today 12. Past Medical/Surgical History Medical Problems: (1) Pancolitis Status: Acute Past Medical History: 1. GERD 2. HTN Past Surgical History: 1. Screening colonoscopy in 2016, diverticulitis, internal hemorrhoids. Family History Cancer Cancer Diabetes mellitus Diabetes mellitus FH: heart disease FH: heart disease Hypertension Hypertension Social History Smoking Status: Never Smoker Alcohol Use: occasionally Drug Use: none Marital Status: in relationship Housing Status: lives with significant other Occupation Status: unemployed Allergies Coded Allergies: Tramadol (Unverified Adverse Reaction, Unknown, NAUSEA, 01/25/17) Current Medications Home Meds and Scripts Medications Dose Route/Sig Max Daily Dose Days Date Category Advil (Ibuprofen) 200 Mg Tab 200-600 Mg PO Q4H PRN 01/25/17 Reported Bentyl (Dicyclomine Hcl) 20 Mg Tab 20 Mg PO QID PRN 01/21/17 Rx Augmentin 875-125 mg (Amoxicillin & Pot Clavulanate) 1 Tab Tab 875 Mg PO BID 7 01/21/17 Rx Elavil (Amitriptyline Hcl) 75 Mg Tab 75 Mg PO HS 01/21/17 Reported Prinivil (Lisinopril) 20 Mg Tab 20 Mg PO DAILY 01/21/17 Reported Synthroid (Levothyroxine Sodium) 100 Mcg Tab 100 Mcg PO DAILY 01/21/17 Reported Prilosec (Omeprazole) 20 Mg Cap 20 Mg PO QAM 03/08/14 Reported Nifedipine 10 Mg Cap 10 Mg PO HS PRN 03/08/14 Reported Review of Systems Constitutional: No fever, No chills, No sweats, No weight loss, No weakness Eyes: No eye pain, No redness ENT: No sore throat, No trouble swallowing, No pain on swallowing Respiratory: No cough, No wheezing, No shortness of breath, No dyspnea on exertion Cardiac: No chest pain, No edema, No palpitations Abdomen: + see HPI, + pain, + diarrhea Neuro: No memory loss, No weakness, No numbness/tingling, No vertigo, No balance problems Psych: No depression symptoms, No anxiety, No insomnia Heme: No abnormal bleeding/bruising, No night sweats Endo: No excessive thirst, No excessive urination Skin: No rash, No itch, No new/changing skin lesions, No jaundice Physical Exam Date Time Temp Pulse Resp B/P (MAP) Pulse Ox O2 Delivery O2 Flow Rate FiO2 01/26/17 08:23 36.6 108 18 110/83 (92) 94 Room Air 01/26/17 08:00 Room Air 01/26/17 04:00 Room Air 01/26/17 03:18 37.0 99 16 97/73 (81) 94 Room Air 01/26/17 00:36 38.1 01/26/17 00:01 95 Room Air 01/25/17 23:31 37.5 111 16 105/78 (87) 95 Room Air 01/25/17 22:13 98 Room Air 01/25/17 20:00 Room Air 98 01/25/17 19:15 37.6 104 18 124/81 (95) 90 Room Air 01/25/17 18:30 36.4 108 24 120/82 98 Room Air 01/25/17 16:35 100 20 121/87 100 Room Air 01/25/17 14:52 93 18 127/86 99 Room Air 01/25/17 14:04 89 18 101/66 95 Room Air 01/25/17 12:48 36.7 100 20 125/93 93 Room Air General Appearance: no apparent distress Eyes: normal inspection, EOMI Neck: supple, no adenopathy, thyroid normal Respiratory/Chest: chest non-tender, lungs clear, normal breath sounds, no accessory muscle use Cardiovascular: regular rate, rhythm, no JVD, no murmur Abdomen: normal bowel sounds, no organomegaly, + tenderness (moderate, diffuse tenderness, worse in the LLQ), + pertinent finding (mildly distended) Extremities: normal inspection, no pedal edema, normal capillary refill Neurologic/Psych: alert, normal mood/affect, oriented x 3 Skin: normal color, no jaundice, warm/dry, no rash Laboratory Results Last 24 Hours Test 01/25/17 13:16 01/25/17 13:59 01/25/17 14:45 01/25/17 17:29 White Blood Count 18.28 K/uL Red Blood Count 4.11 M/uL Hemoglobin 13.9 g/dL Hematocrit 39.2 % Mean Corpuscular Volume 95.4 fL Mean Corpuscular Hemoglobin 33.8 pg Mean Corpuscular Hemoglobin Concent 35.5 g/dl Platelet Count 162 K/uL Mean Platelet Volume 10.5 fL Neutrophils (%) (Auto) 83.1 % Lymphocytes (%) (Auto) 4.2 % Monocytes (%) (Auto) 11.1 % Eosinophils (%) (Auto) 0.8 % Basophils (%) (Auto) 0.2 % Neutrophils # (Auto) 15.20 K/uL Lymphocytes # (Auto) 0.76 K/uL Monocytes # (Auto) 2.03 K/uL Eosinophils # (Auto) 0.15 K/uL Basophils # (Auto) 0.03 K/uL RDW Standard Deviation 41.5 fL RDW Coefficient of Variation 11.9 % Immature Granulocyte % (Auto) 0.6 % Immature Granulocyte # (Auto) 0.11 K/uL Erythrocyte Sedimentation Rate 54 mm/hr Sodium Level 123 mmol/L Potassium Level mmol/L 3.2 mmol/L Chloride Level 92 mmol/L Carbon Dioxide Level 24 mmol/L Anion Gap 7.0 mmol/L Blood Urea Nitrogen 8 mg/dl Creatinine 0.81 mg/dl Est Creatinine Clear Calc Drug Dose 82.8 ml/min Estimated GFR () 97.5 Estimated GFR (Non- 84.1 BUN/Creatinine Ratio 9.5 Random Glucose 111 mg/dl Calcium Level 8.8 mg/dl Total Bilirubin 0.8 mg/dl Aspartate Amino Transf (AST/SGOT) U/L 10 U/L Alanine Aminotransferase (ALT/SGPT) 19 U/L Alkaline Phosphatase 134 U/L Total Protein 8.2 gm/dl Albumin 3.3 gm/dl Globulin 4.9 gm/dl Albumin/Globulin Ratio 0.7 Lipase 553 U/L C-Reactive Protein 16.70 mg/dl Thyroid Stimulating Hormone (TSH) 2.000 uIu/ml Urine Color DK YELLOW Urine Appearance CLOUDY Urine pH 5.5 Urine Specific [place] 1.027 Urine Protein 2+ Urine Glucose (UA) NEG Urine Ketones 1+ Urine Occult Blood NEG Urine Nitrite POS Urine Bilirubin NEG Urine Urobilinogen NEG Urine Leukocyte Esterase SMALL Urine WBC (Auto) 10-30 /hpf Urine RBC (Auto) 5-10 /hpf Urine Hyaline Casts (Auto) 10-30 /lpf Urine Epithelial Cells (Auto) >30 /lpf Urine Bacteria (Auto) NEG Urine Renal Epithelial Cells /lpf Urine Pathogenic Casts /lpf Urine Mucus PRESENT Lactic Acid Level 1.2 mmol/L Test 01/25/17 17:33 01/25/17 20:33 01/26/17 05:19 Procalcitonin 0.11 ng/ml Prothrombin Time 11.4 SECONDS Prothromb Time International Ratio 1.1 White Blood Count 12.90 K/uL Red Blood Count 3.62 M/uL Hemoglobin 11.9 g/dL Hematocrit 35.3 % Mean Corpuscular Volume 97.5 fL Mean Corpuscular Hemoglobin 32.9 pg Mean Corpuscular Hemoglobin Concent 33.7 g/dl Platelet Count 211 K/uL Mean Platelet Volume 10.1 fL Neutrophils (%) (Auto) 78.8 % Lymphocytes (%) (Auto) 5.0 % Monocytes (%) (Auto) 12.8 % Eosinophils (%) (Auto) 2.5 % Basophils (%) (Auto) 0.2 % Neutrophils # (Auto) 10.17 K/uL Lymphocytes # (Auto) 0.65 K/uL Monocytes # (Auto) 1.65 K/uL Eosinophils # (Auto) 0.32 K/uL Basophils # (Auto) 0.02 K/uL RDW Standard Deviation 43.6 fL RDW Coefficient of Variation 12.2 % Immature Granulocyte % (Auto) 0.7 % Immature Granulocyte # (Auto) 0.09 K/uL Toxic Granulation 1+ Toxic Vacuolation 1+ Dohle Bodies 1+ Sodium Level 131 mmol/L Potassium Level 3.4 mmol/L Chloride Level 99 mmol/L Carbon Dioxide Level 25 mmol/L Anion Gap 7.0 mmol/L Blood Urea Nitrogen 5 mg/dl Creatinine 0.61 mg/dl Est Creatinine Clear Calc Drug Dose 111.5 ml/min Estimated GFR () 121.7 Estimated GFR (Non- 105.0 BUN/Creatinine Ratio 8.4 Random Glucose 75 mg/dl Calcium Level 8.3 mg/dl Phosphorus Level 2.4 mg/dl Magnesium Level 1.8 mg/dl Total Bilirubin 0.3 mg/dl Direct Bilirubin < 0.1 mg/dl Aspartate Amino Transf (AST/SGOT) 10 U/L Alanine Aminotransferase (ALT/SGPT) 14 U/L Alkaline Phosphatase 105 U/L Total Protein 6.5 gm/dl Albumin 2.7 gm/dl Globulin 3.8 gm/dl Albumin/Globulin Ratio 0.7 Lipase 845 U/L Impression Patient is a 51 year old female with C-diff colitis, responding well to vanco 125QID Plan Continue Vanco 125mg po QID - continue a total of 10 - 14 days. May start with clear liquids po. I performed a history and physical examination of the patient. I have discussed the patient's case, impression and plan with GRACE Myers. Her note reflects my findings and plan. C. diff infection in setting of Augmentin use. Doing well. Tomi Hodge MD
--- NOTE | 2017-01-26 14:44 | Family Medicine Progress Note ---
Progress Note Date of Service Jan 26, 2017. Subjective Pt evaluation today including: conversation w/ patient, physical exam, chart review, lab review, review of studies Pain: 6/10 abdominal pain Voiding: no voiding problems, no incontinence Patient is resting comfortably in bed this morning and states her abdominal pain has improved although is still at a 6/10. It is over the left lower quadrant radiating to the left upper quadrant and back, although this location has not changed. The patient has been having abdominal pain for quite an extended period of time but acutely worsened over the last 2 weeks. She had a loose bowel movement this morning that was watery brown, and had 5-6 similar bowel movements yesterday. 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 She denies any blood in her stool this morning. Constitutional: + fever, + sweats, + fatigue, No chills Respiratory: No cough, No sputum, No wheezing, No dyspnea on exertion Cardiovascular: No chest pain, No palpitations Abdomen: + pain, + nausea, + diarrhea, No vomiting, No constipation, No GI bleeding Medications Current Inpatient Medications Medications (Trade) Dose Ordered Sig/Milly Route Start Time Stop Time Status Last Admin Dose Admin Ioversol (Optiray 320) 100 ml UD PRN IV 01/25/17 14:15 01/29/17 14:14 Heparin Sodium (Porcine) (Heparin Sq 5000 Unit/0.5ml) 5,000 unit Q8 SQ 01/26/17 06:00 02/25/17 05:59 01/26/17 13:21 5,000 UNIT Potassium Chloride/Sodium Chloride 1,000 ml @ 150 mls/hr Q6H40M IV 01/25/17 21:00 02/24/17 20:59 01/26/17 11:16 150 MLS/HR Acetaminophen (Tylenol Tab) 650 mg Q4H PRN PO 01/25/17 17:15 02/24/17 17:14 01/25/17 23:33 650 MG Al Hydrox/Mg Hydrox/Simethicone (Maalox Max Susp) 15 ml Q4H PRN PO 01/25/17 17:15 02/24/17 17:14 Magnesium Hydroxide (Milk Of Magnesia Susp) 30 ml Q12H PRN PO 01/25/17 17:15 02/24/17 17:14 Zolpidem Tartrate (Ambien Tab) 5 mg HSZ PRN PO 01/25/17 17:15 02/24/17 17:14 01/25/17 20:11 5 MG Ondansetron HCl (Zofran Inj) 4 mg Q6H PRN IV 01/25/17 17:15 02/24/17 17:14 Polyethylene (Miralax Powder Packet) 17 gm DAILY PRN PO 01/25/17 17:15 02/24/17 17:14 Morphine Sulfate (MoRPHine SULFATE INJ) 4 mg Q6H PRN IV 01/25/17 17:15 02/08/17 17:14 01/25/17 20:00 4 MG Ertapenem 1 gm/ Sodium Chloride 50 ml @ 120 mls/hr Q24H IV 01/26/17 18:00 02/04/17 17:59 Amitriptyline HCl (Elavil Tab) 75 mg HS PO 01/25/17 21:00 02/24/17 20:59 01/25/17 21:18 75 MG Dicyclomine HCl (Bentyl Tab) 20 mg QID PRN PO 01/25/17 17:15 02/24/17 17:14 01/26/17 04:03 20 MG Levothyroxine Sodium (Synthroid Tab) 100 mcg DAILY PO 01/26/17 09:00 02/25/17 08:59 01/26/17 08:02 100 MCG Lisinopril (Zestril Tab) 20 mg DAILY PO 01/26/17 09:00 02/25/17 08:59 01/26/17 08:02 20 MG Pantoprazole Sodium 40 mg/ Syringe 10 ml @ 5 mls/min DAILY@11 IV 01/26/17 11:00 02/25/17 10:59 01/26/17 11:44 5 MLS/MIN Hydromorphone HCl (Dilaudid Inj) 1 mg Q4H PRN IV 01/25/17 19:30 02/08/17 19:29 01/26/17 11:43 1 MG Miscellaneous Information (Order Awaiting Action) 1 ea QS N/A 01/26/17 00:00 02/25/17 00:00 Vancomycin HCl (Vancomycin Oral Soln) 125 mg QID PO 01/25/17 22:00 02/08/17 21:59 01/26/17 13:21 125 MG Raspberry (Raspberry Syrup 5ml Cup) 5 ml QID PO 01/25/17 22:00 02/08/17 21:59 01/26/17 13:21 5 ML Acetaminophen 650 mg/Empty Bag 65 ml @ 260 mls/hr Q6H PRN IV 01/26/17 06:30 02/25/17 06:29 01/26/17 08:03 260 MLS/HR Objective Vital Signs Date Time Temp Pulse Resp B/P (MAP) Pulse Ox O2 Delivery O2 Flow Rate FiO2 01/26/17 12:08 36.6 102 16 111/84 (93) 97 Room Air 01/26/17 12:00 Room Air 01/26/17 08:23 36.6 108 18 110/83 (92) 94 Room Air 01/26/17 08:00 Room Air 01/26/17 04:00 Room Air 01/26/17 03:18 37.0 99 16 97/73 (81) 94 Room Air 01/26/17 00:36 38.1 01/26/17 00:01 95 Room Air 01/25/17 23:31 37.5 111 16 105/78 (87) 95 Room Air 01/25/17 22:13 98 Room Air 01/25/17 20:00 Room Air 98 01/25/17 19:15 37.6 104 18 124/81 (95) 90 Room Air 01/25/17 18:30 36.4 108 24 120/82 98 Room Air 01/25/17 16:35 100 20 121/87 100 Room Air 01/25/17 14:52 93 18 127/86 99 Room Air Physical Exam General Appearance: WD/WN, no apparent distress Eyes: normal inspection, sclerae normal Neck: supple, no carotid bruits Respiratory/Chest: chest non-tender, lungs clear, normal breath sounds Cardiovascular: regular rate, rhythm, no edema, no gallop Abdomen: normal bowel sounds, + distended, + tenderness (RLQ and RUQ) Extremities: no pedal edema, no calf tenderness Neurologic/Psychiatric: alert, normal mood/affect, oriented x 3 Laboratory Results Results Past 24 Hours Test 01/25/17 14:45 01/25/17 17:29 01/25/17 17:33 01/25/17 20:33 Range/Units Urine Color DK YELLOW Urine Appearance CLOUDY CLEAR Urine pH 5.5 4.5-7.5 Urine Specific [place] 1.027 1.000-1.030 Urine Protein 2+ NEG Urine Glucose (UA) NEG NEG Urine Ketones 1+ NEG Urine Occult Blood NEG NEG Urine Nitrite POS NEG Urine Bilirubin NEG NEG Urine Urobilinogen NEG NEG Urine Leukocyte Esterase SMALL NEG Urine WBC (Auto) 10-30 0-5 /hpf Urine RBC (Auto) 5-10 0-4 /hpf Urine Hyaline Casts (Auto) 10-30 0-5 /lpf Urine Epithelial Cells (Auto) >30 0-5 /lpf Urine Bacteria (Auto) NEG NEG Urine Renal Epithelial Cells 0-5 /lpf Urine Pathogenic Casts 0 /lpf Urine Mucus PRESENT NONE PRSENT Lactic Acid Level 1.2 0.4-2.0 mmol/L Procalcitonin 0.11 0-0.5 ng/ml Prothrombin Time 11.4 9.0-12.0 SECONDS Prothromb Time International Ratio 1.1 0.9-1.1 Test 01/26/17 05:19 Range/Units White Blood Count 12.90 4.8-10.8 K/uL Red Blood Count 3.62 4.2-5.4 M/uL Hemoglobin 11.9 12.0-16.0 g/dL Hematocrit 35.3 37-47 % Mean Corpuscular Volume 97.5 80-100 fL Mean Corpuscular Hemoglobin 32.9 25-34 pg Mean Corpuscular Hemoglobin Concent 33.7 32-36 g/dl Platelet Count 211 130-400 K/uL Mean Platelet Volume 10.1 7.4-10.4 fL Neutrophils (%) (Auto) 78.8 % Lymphocytes (%) (Auto) 5.0 % Monocytes (%) (Auto) 12.8 % Eosinophils (%) (Auto) 2.5 % Basophils (%) (Auto) 0.2 % Neutrophils # (Auto) 10.17 1.4-6.5 K/uL Lymphocytes # (Auto) 0.65 1.2-3.4 K/uL Monocytes # (Auto) 1.65 0.11-0.59 K/uL Eosinophils # (Auto) 0.32 0-0.5 K/uL Basophils # (Auto) 0.02 0-0.2 K/uL RDW Standard Deviation 43.6 36.4-46.3 fL RDW Coefficient of Variation 12.2 11.5-14.5 % Immature Granulocyte % (Auto) 0.7 % Immature Granulocyte # (Auto) 0.09 0.00-0.02 K/uL Toxic Granulation 1+ Toxic Vacuolation 1+ Dohle Bodies 1+ Sodium Level 131 136-145 mmol/L Potassium Level 3.4 3.5-5.1 mmol/L Chloride Level 99 98-107 mmol/L Carbon Dioxide Level 25 21-32 mmol/L Anion Gap 7.0 3-11 mmol/L Blood Urea Nitrogen 5 7-18 mg/dl Creatinine 0.61 0.60-1.20 mg/dl Est Creatinine Clear Calc Drug Dose 111.5 ml/min Estimated GFR () 121.7 Estimated GFR (Non- 105.0 BUN/Creatinine Ratio 8.4 10-20 Random Glucose 75 70-99 mg/dl Calcium Level 8.3 8.5-10.1 mg/dl Phosphorus Level 2.4 2.5-4.9 mg/dl Magnesium Level 1.8 1.8-2.4 mg/dl Total Bilirubin 0.3 0.2-1 mg/dl Direct Bilirubin < 0.1 0-0.2 mg/dl Aspartate Amino Transf (AST/SGOT) 10 15-37 U/L Alanine Aminotransferase (ALT/SGPT) 14 12-78 U/L Alkaline Phosphatase 105 45-117 U/L Total Protein 6.5 6.4-8.2 gm/dl Albumin 2.7 3.4-5.0 gm/dl Globulin 3.8 2.5-4.0 gm/dl Albumin/Globulin Ratio 0.7 0.9-2 Lipase 845 73-393 U/L Microbiology Results 01/25/17 Blood Culture, Received Pending 01/25/17 Blood Culture, Received Pending 01/25/17 C.difficile Toxin B Gene (PCR) - Final, Complete Positive for C. difficile toxin B gene 01/25/17 Shiga Toxin Test - Preliminary, Resulted 01/25/17 Stool Culture - Preliminary, Resulted NO SALMONELLA ISOLATED TO DATE,... 01/25/17 Urine Culture, Received Pending Assessment and Plan Patient is a 51 year old female that presented to the ED with a 10 day history of abdominal pain and nausea found to be secondary to C Diff colitis 1) C Diff Colitis - Abdominal pain improving on oral antibiotics - Vancomycin 124mg PO QID - Day 2 --> Total treatment 10-14 days - Pain controlled with IV Tylenol - CT Abdomen 01/25: Progressive colonic wall thickening which now involves the entire colon. The findings are indicative of a pancolitis - Leukocytosis improve--> 18.28 --> 12.9 - Stool cultures for shiga toxins preliminarily negative 2) Hyponatremia - 2/2 Diarrhea - IV NS + 20 K 150mls / hr - Improved from 123 --> 131 3) Hypokalemia - 2/2 Diarrhea - IV NS + 20 K 150mls/ hr - Improved from 3.2 -->3.4 4) UTI - Positive leukocytes and nitrites, but no blood or bacteria - > 30 epithelial cells so possibly contaminant 5) Pancreatitis - Lipase increased from 553-845 - IV Fluids - Advance diet to clear liquid - Abdominal pain improving 6) Hypertension - Continue home Lisinopril 20mg 7) GERD - Continue home Prilosec 20mg 8) Hypothyroidism - Continue home Synthroid 100mcg 9) DVT Prophylaxis - Heparin 10) Code Status - Full Resuscitation Resident Tracking Resident Involvement: Resident Care Provided Care Provided: Adult Hospital Medicine
[2017-01-26] MEDS ORDERED: ERTAPENEM IV 1 GM in SODIUM CHLOR 0.9% AD-VAN 50ML 50 ML IV SCH (18:00)
[2017-01-26] MEDS: AMITRIPTYLINE HCL 25 MG TAB PO SCH (19:57)
[2017-01-27 00:09] VITALS: BP 106/79; PULSE 100; TEMP 37.3; O2SAT 96
[2017-01-27] MEDS: HYDROmorphone INJ 1 MG/ML SYR IV PRN ×3 (00:25→16:12)
[2017-01-27] MEDS: NSS + 20MEQ KCL 1000ML 1,000 ML IV SCH ×5 (00:26→22:43)
[2017-01-27 04:15] VITALS: BP 110/66; PULSE 89; TEMP 36.4; O2SAT 95
[2017-01-27] MEDS: HEPARIN SOD 5000 UNIT/0.5 ML CARP SQ SCH ×3 (06:01→20:29)
[2017-01-27 07:04] LABS: HEMATOCRIT 33.3 % (37-47); MEAN CELL VOLUME 97.7 fL (80-100); MEAN CORPUSCULAR HEMOGLOBIN 32.6 pg (25-34); MEAN CORPUSCULAR HGB CONC 33.3 g/dl (32-36); MEAN PLATELET VOLUME 9.1 fL (7.4-10.4); PLATELET COUNT 250 K/uL (130-400); RED BLOOD COUNT 3.41 M/uL (4.2-5.4)
[2017-01-27 07:23] LABS: BUN/CREATININE RATIO 3.6 (10-20); CREATININE 0.45 mg/dl (0.60-1.20); POTASSIUM 3.5 mmol/L (3.5-5.1)
[2017-01-27] MEDS: VANCOMYCIN HCL 125 MG/2.5ML SOLN PO SCH ×4 (07:43→20:26)
[2017-01-27] MEDS: RASPBERRY SYRUP 5 ML UDP PO SCH ×4 (07:44→20:26)
[2017-01-27] MEDS: LEVOTHYROXINE 100 MCG TAB PO SCH (07:44)
[2017-01-27] MEDS: LISINOPRIL 20 MG TAB PO SCH (07:45)
[2017-01-27] MEDS: DICYCLOMINE HCL 20 MG TAB PO PRN (07:45)
[2017-01-27 08:16] VITALS: BP 107/72; PULSE 88; TEMP 36.6; O2SAT 95
[2017-01-27] MEDS: PANTOprazole INJ 40 MG in SYRINGE 0 ML IV SCH (11:59)
[2017-01-27 12:23] VITALS: BP 136/93; PULSE 88; TEMP 36.7; O2SAT 98
--- NOTE | 2017-01-27 15:51 | Family Medicine Progress Note ---
Progress Note Date of Service Jan 27, 2017. Subjective Pt evaluation today including: conversation w/ patient, physical exam, chart review, lab review, review of studies Pain: 8/10 pain when medications wear off Voiding: no voiding problems, no incontinence Patient is lying in bed this morning and appears in mild distress due to abdominal pain. She states that her current pain is about an 8 out of 10 and only improves after getting her pain medications. She has been intermittently getting morphine as well as Dilaudid in addition to IV Tylenol. She denies any fevers, chills, sweats, vomiting, or blood in her stool. She did have 3 loose bowel movements yesterday but denies any bowel movements this morning. Constitutional: + fatigue, No fever, No chills, No sweats Respiratory: No cough, No sputum, No wheezing, No shortness of breath Cardiovascular: No chest pain, No palpitations Abdomen: + pain, + nausea, + diarrhea, No vomiting, No constipation, No GI bleeding Female : No dysuria Medications Current Inpatient Medications Medications (Trade) Dose Ordered Sig/Milly Route Start Time Stop Time Status Last Admin Dose Admin Ioversol (Optiray 320) 100 ml UD PRN IV 01/25/17 14:15 01/29/17 14:14 Heparin Sodium (Porcine) (Heparin Sq 5000 Unit/0.5ml) 5,000 unit Q8 SQ 01/26/17 06:00 02/25/17 05:59 01/27/17 13:57 5,000 UNIT Potassium Chloride/Sodium Chloride 1,000 ml @ 150 mls/hr Q6H40M IV 01/25/17 21:00 02/24/17 20:59 01/27/17 13:56 150 MLS/HR Acetaminophen (Tylenol Tab) 650 mg Q4H PRN PO 01/25/17 17:15 02/24/17 17:14 01/25/17 23:33 650 MG Al Hydrox/Mg Hydrox/Simethicone (Maalox Max Susp) 15 ml Q4H PRN PO 01/25/17 17:15 02/24/17 17:14 Magnesium Hydroxide (Milk Of Magnesia Susp) 30 ml Q12H PRN PO 01/25/17 17:15 02/24/17 17:14 Zolpidem Tartrate (Ambien Tab) 5 mg HSZ PRN PO 01/25/17 17:15 02/24/17 17:14 01/25/17 20:11 5 MG Ondansetron HCl (Zofran Inj) 4 mg Q6H PRN IV 01/25/17 17:15 02/24/17 17:14 Polyethylene (Miralax Powder Packet) 17 gm DAILY PRN PO 01/25/17 17:15 02/24/17 17:14 Morphine Sulfate (MoRPHine SULFATE INJ) 4 mg Q6H PRN IV 01/25/17 17:15 02/08/17 17:14 01/25/17 20:00 4 MG Ertapenem 1 gm/ Sodium Chloride 50 ml @ 120 mls/hr Q24H IV 01/26/17 18:00 02/04/17 17:59 01/26/17 17:16 120 MLS/HR Amitriptyline HCl (Elavil Tab) 75 mg HS PO 01/25/17 21:00 02/24/17 20:59 01/26/17 19:57 75 MG Dicyclomine HCl (Bentyl Tab) 20 mg QID PRN PO 01/25/17 17:15 02/24/17 17:14 01/27/17 07:45 20 MG Levothyroxine Sodium (Synthroid Tab) 100 mcg DAILY PO 01/26/17 09:00 02/25/17 08:59 01/27/17 07:44 100 MCG Lisinopril (Zestril Tab) 20 mg DAILY PO 01/26/17 09:00 02/25/17 08:59 01/27/17 07:45 20 MG Pantoprazole Sodium 40 mg/ Syringe 10 ml @ 5 mls/min DAILY@11 IV 01/26/17 11:00 02/25/17 10:59 01/27/17 11:59 5 MLS/MIN Hydromorphone HCl (Dilaudid Inj) 1 mg Q4H PRN IV 01/25/17 19:30 02/08/17 19:29 01/27/17 07:49 1 MG Vancomycin HCl (Vancomycin Oral Soln) 125 mg QID PO 01/25/17 22:00 02/08/17 21:59 01/27/17 11:58 125 MG Raspberry (Raspberry Syrup 5ml Cup) 5 ml QID PO 01/25/17 22:00 02/08/17 21:59 01/27/17 11:59 5 ML Acetaminophen 650 mg/Empty Bag 65 ml @ 260 mls/hr Q6H PRN IV 01/26/17 06:30 02/25/17 06:29 01/26/17 08:03 260 MLS/HR Objective Vital Signs Date Time Temp Pulse Resp B/P (MAP) Pulse Ox O2 Delivery O2 Flow Rate FiO2 01/27/17 12:23 36.7 88 16 136/93 (107) 98 Room Air 01/27/17 12:00 Room Air 01/27/17 08:16 36.6 88 16 107/72 (84) 95 Room Air 01/27/17 08:00 Room Air 01/27/17 04:15 36.4 89 15 110/66 (81) 95 Room Air 01/27/17 04:00 Room Air 01/27/17 00:09 37.3 100 20 106/79 (88) 96 Room Air 01/27/17 00:00 Room Air 01/26/17 20:00 Room Air 01/26/17 19:30 36.3 94 18 109/83 (92) 96 Room Air 01/26/17 16:00 Room Air 01/26/17 15:47 36.6 99 16 119/85 (96) 99 Room Air Physical Exam General Appearance: + mild distress, + obese Eyes: normal inspection, sclerae normal Neck: supple, no carotid bruits Respiratory/Chest: chest non-tender, lungs clear, normal breath sounds Cardiovascular: regular rate, rhythm, no edema, no gallop Abdomen: + pertinent finding (patient has left lower quadrant tenderness that is radiating to the left upper quadrant into the back as well. Her abdomen is mildly distended but soft. Normal bowel sounds were auscultated.) Extremities: non-tender, no calf tenderness Neurologic/Psychiatric: alert, normal mood/affect, oriented x 3 Laboratory Results Results Past 24 Hours Test 01/26/17 17:25 01/27/17 06:54 Range/Units Stool Occult Blood NEGATIVE NEGATIVE White Blood Count 11.90 4.8-10.8 K/uL Red Blood Count 3.41 4.2-5.4 M/uL Hemoglobin 11.1 12.0-16.0 g/dL Hematocrit 33.3 37-47 % Mean Corpuscular Volume 97.7 80-100 fL Mean Corpuscular Hemoglobin 32.6 25-34 pg Mean Corpuscular Hemoglobin Concent 33.3 32-36 g/dl RDW Standard Deviation 44.4 36.4-46.3 fL RDW Coefficient of Variation 12.3 11.5-14.5 % Platelet Count 250 130-400 K/uL Mean Platelet Volume 9.1 7.4-10.4 fL Sodium Level 133 136-145 mmol/L Potassium Level 3.5 3.5-5.1 mmol/L Chloride Level 103 98-107 mmol/L Carbon Dioxide Level 22 21-32 mmol/L Anion Gap 8.0 3-11 mmol/L Blood Urea Nitrogen 2 7-18 mg/dl Creatinine 0.45 0.60-1.20 mg/dl Est Creatinine Clear Calc Drug Dose 151.1 ml/min Estimated GFR () 134.5 Estimated GFR (Non- 116.0 BUN/Creatinine Ratio 3.6 10-20 Random Glucose 81 70-99 mg/dl Calcium Level 8.0 8.5-10.1 mg/dl Assessment and Plan Patient is a 51 year old female that presented to the ED with a 10 day history of abdominal pain and nausea found to be secondary to C Diff colitis 1) C Diff Colitis - CT Abdomen 01/25: Progressive colonic wall thickening which now involves the entire colon. The findings are indicative of a pancolitis - Continued abdominal pain but diarrhea and leukocytosis improving - Vancomycin 124mg PO QID - Day 3 --> Total treatment 10-14 days - Pain: Dilaudid 1mg q4h, Morphine 4mg q4h, IV Tylenol - Leukocytosis improve--> 18.28 --> 12.9 --> 11.90 - Stool cultures for shiga toxins preliminarily negative 2) Hyponatremia - 2/2 Diarrhea - IV NS + 20 K 150mls / hr - Improved from 123 --> 131 --> 133 3) Hypokalemia - Resolved - 2/2 Diarrhea - IV NS + 20 K 150mls/ hr - Improved from 3.2 -->3.4 --> 3.5 4) UTI - Positive leukocytes and nitrites, but no blood or bacteria - > 30 epithelial cells so possibly contaminant 5) Pancreatitis - Lipase increased from 553-845 - IV Fluids - Advance diet to clear liquid 6) Hypertension - Continue home Lisinopril 20mg 7) GERD - Continue home Prilosec 20mg 8) Hypothyroidism - Continue home Synthroid 100mcg 9) DVT Prophylaxis - Heparin 10) Code Status - Full Resuscitation I agree with resident assessment and plan and have seen and examined pt myself Resting comfortably in bed VSS Labs reviewed Leukocytosis trending down C diff colitis Cont vanc Pain slightly worsening, cont dilaudid and morphine PRN Resident Tracking Resident Involvement: Resident Care Provided Care Provided: Adult Hospital Medicine
[2017-01-27] MEDS ORDERED: MoRPHine SULFATE 4 MG/ML 1 ML CARP\\VIAL IV PRN (16:00)
[2017-01-27 16:48] VITALS: BP 133/90; PULSE 89; TEMP 36.4; O2SAT 97
[2017-01-27] MEDS: AMITRIPTYLINE HCL 25 MG TAB PO SCH (20:29)
[2017-01-27 23:55] VITALS: BP 132/94; PULSE 92; TEMP 37; O2SAT 97
[2017-01-28] MEDS: HYDROmorphone INJ 1 MG/ML SYR IV PRN ×2 (03:49→09:18)
[2017-01-28] MEDS: NSS + 20MEQ KCL 1000ML 1,000 ML IV SCH ×3 (05:38→21:16)
[2017-01-28] MEDS: HEPARIN SOD 5000 UNIT/0.5 ML CARP SQ SCH ×3 (05:43→21:23)
[2017-01-28 06:40] LABS: HEMATOCRIT 35.6 % (37-47); MEAN CELL VOLUME 98.1 fL (80-100); MEAN CORPUSCULAR HEMOGLOBIN 32.5 pg (25-34); MEAN CORPUSCULAR HGB CONC 33.1 g/dl (32-36); MEAN PLATELET VOLUME 9.6 fL (7.4-10.4); PLATELET COUNT 282 K/uL (130-400); RED BLOOD COUNT 3.63 M/uL (4.2-5.4); WHITE BLOOD COUNT 7.32 K/uL (4.8-10.8)
[2017-01-28 07:16] VITALS: BP 134/95; PULSE 91; TEMP 36.5; O2SAT 98
[2017-01-28] MEDS: LEVOTHYROXINE 100 MCG TAB PO SCH (08:22)
[2017-01-28] MEDS: VANCOMYCIN HCL 125 MG/2.5ML SOLN PO SCH ×4 (08:22→19:24)
[2017-01-28] MEDS: LISINOPRIL 20 MG TAB PO SCH (08:22)
[2017-01-28] MEDS: RASPBERRY SYRUP 5 ML UDP PO SCH ×4 (08:22→19:24)
--- NOTE | 2017-01-28 10:22 | DIAGNOSTIC IMAGING REPORT ---
KUB HISTORY: C Diff colitis, abdominal Distension COMPARISON: Abdomen and pelvis CT 01/25/2017. FINDINGS: Nondilated gas-filled loops of small bowel are again noted. No evidence for bowel obstruction. Mild thickening of the colonic wall remains unchanged. Pelvic calcifications are consistent with phleboliths. No renal calculi. No ureteral calculi. No pneumoperitoneum or pneumatosis. IMPRESSION: Redemonstration of the diffuse colonic wall thickening consistent with a pancolitis. No evidence for bowel obstruction. Electronically signed by: Sadiq Hoffmann M.D. 01/28/2017 10:21 AM Dictated Date/Time: 01/28/2017 10:20 AM
[2017-01-28] MEDS: PANTOprazole INJ 40 MG in SYRINGE 0 ML IV SCH (11:43)
--- NOTE | 2017-01-28 12:26 | Gastroenterology Progress Note ---
Progress Note Date of Service: Jan 28, 2017 Subjective Pt evaluation today including: conversation w/ patient, physical exam I was asked to reevaluate this patient for history of C. difficile associated diarrhea. She apparently has worsening abdominal distention this morning. The patient does note having persistent left-sided pain for which she has been using Dilaudid. Review of Systems Constitutional: No fever, No sweats, No fatigue Respiratory: No cough, No wheezing Cardiac: No chest pain, No PND, No palpitations Abdomen: + pain Medications Current Inpatient Medications Medications (Trade) Dose Ordered Sig/Milly Route Start Time Stop Time Status Last Admin Dose Admin Ioversol (Optiray 320) 100 ml UD PRN IV 01/25/17 14:15 01/29/17 14:14 Heparin Sodium (Porcine) (Heparin Sq 5000 Unit/0.5ml) 5,000 unit Q8 SQ 01/26/17 06:00 02/25/17 05:59 01/28/17 05:43 5,000 UNIT Potassium Chloride/Sodium Chloride 1,000 ml @ 150 mls/hr Q6H40M IV 01/25/17 21:00 02/24/17 20:59 01/28/17 05:38 150 MLS/HR Acetaminophen (Tylenol Tab) 650 mg Q4H PRN PO 01/25/17 17:15 02/24/17 17:14 01/25/17 23:33 650 MG Al Hydrox/Mg Hydrox/Simethicone (Maalox Max Susp) 15 ml Q4H PRN PO 01/25/17 17:15 02/24/17 17:14 Magnesium Hydroxide (Milk Of Magnesia Susp) 30 ml Q12H PRN PO 01/25/17 17:15 02/24/17 17:14 Zolpidem Tartrate (Ambien Tab) 5 mg HSZ PRN PO 01/25/17 17:15 02/24/17 17:14 01/25/17 20:11 5 MG Ondansetron HCl (Zofran Inj) 4 mg Q6H PRN IV 01/25/17 17:15 02/24/17 17:14 Polyethylene (Miralax Powder Packet) 17 gm DAILY PRN PO 01/25/17 17:15 02/24/17 17:14 Amitriptyline HCl (Elavil Tab) 75 mg HS PO 01/25/17 21:00 02/24/17 20:59 01/27/17 20:29 75 MG Dicyclomine HCl (Bentyl Tab) 20 mg QID PRN PO 01/25/17 17:15 02/24/17 17:14 01/27/17 07:45 20 MG Levothyroxine Sodium (Synthroid Tab) 100 mcg DAILY PO 01/26/17 09:00 02/25/17 08:59 01/28/17 08:22 100 MCG Lisinopril (Zestril Tab) 20 mg DAILY PO 01/26/17 09:00 02/25/17 08:59 01/28/17 08:22 20 MG Pantoprazole Sodium 40 mg/ Syringe 10 ml @ 5 mls/min DAILY@11 IV 01/26/17 11:00 02/25/17 10:59 01/28/17 11:43 5 MLS/MIN Hydromorphone HCl (Dilaudid Inj) 1 mg Q4H PRN IV 01/25/17 19:30 02/08/17 19:29 01/28/17 09:18 1 MG Vancomycin HCl (Vancomycin Oral Soln) 125 mg QID PO 01/25/17 22:00 02/08/17 21:59 01/28/17 11:43 125 MG Raspberry (Raspberry Syrup 5ml Cup) 5 ml QID PO 01/25/17 22:00 02/08/17 21:59 01/28/17 11:43 5 ML Acetaminophen 650 mg/Empty Bag 65 ml @ 260 mls/hr Q6H PRN IV 01/26/17 06:30 02/25/17 06:29 01/26/17 08:03 260 MLS/HR Morphine Sulfate (MoRPHine SULFATE INJ) 4 mg Q4H PRN IV 01/27/17 16:00 02/08/17 17:14 Objective Vital Signs Date Time Temp Pulse Resp B/P (MAP) Pulse Ox O2 Delivery O2 Flow Rate FiO2 01/28/17 08:00 Room Air 01/28/17 07:16 36.5 91 18 134/95 (108) 98 Room Air 01/28/17 01:00 Room Air 01/27/17 23:55 37.0 92 20 132/94 (107) 97 Room Air 01/27/17 16:48 36.4 89 18 133/90 (104) 97 Room Air 01/27/17 16:15 36.7 88 16 98 01/27/17 16:00 Room Air 01/27/17 12:23 36.7 88 16 136/93 (107) 98 Room Air Physical Exam General Appearance: no apparent distress Eyes: PERRL Respiratory/Chest: lungs clear Cardiovascular: no edema, no JVD Abdomen: + tenderness (mild distension / no peritoneal signs) Neurologic/Psych: oriented x 3 Skin: no jaundice, warm/dry Laboratory Results Last 24 Hours Test 01/28/17 06:07 White Blood Count 7.32 K/uL Red Blood Count 3.63 M/uL Hemoglobin 11.8 g/dL Hematocrit 35.6 % Mean Corpuscular Volume 98.1 fL Mean Corpuscular Hemoglobin 32.5 pg Mean Corpuscular Hemoglobin Concent 33.1 g/dl RDW Standard Deviation 44.0 fL RDW Coefficient of Variation 12.3 % Platelet Count 282 K/uL Mean Platelet Volume 9.6 fL Assessment and Plan Patient admitted with C. difficile colitis. Initially, it appeared that she was improving as white blood cell count dropped significantly since admission. Unfortunately it looks like she is now having some abdominal distention but is presently without evidence of toxic megacolon on KUB (no fever or leukocytosis) . Given the worsening symptoms I would highly recommend that all narcotics be discontinued. It may also be prudent to add Metronidazole to her oral Vancomycin. Recommendations Continue vancomycin 125 mg 4 times a day for 14 days Add Metronidazole 500 mg IV TID May try Levsin 3 times a day for cramping (bentyl does not appear to be working well for her) Daily KUB If abdominal distention worsens would consider surgical consultation Coverage with Dr. Howard to resume on Sunday.
[2017-01-28] MEDS ORDERED: METRONIDAZOLE / NSS 500 MG in PREMIXED NSS 100 ML IV SCH (13:45)
[2017-01-28] MEDS ORDERED: LIDODERM (LIDOCAINE) PATCH 5% TD ONE (13:49)
--- NOTE | 2017-01-28 13:51 | Family Medicine Progress Note ---
Progress Note Date of Service Jan 28, 2017. Subjective Pt evaluation today including: conversation w/ patient, physical exam, chart review, lab review, review of studies Pain: Pain improved from yesterday PO Intake: Clear liquid diet tolerated Voiding: no voiding problems, no incontinence The patient is resting comfortably in bed this morning with no acute complaints. Patient states that she did not have any bowel movements yesterday but did have 1 loose bowel movement this morning. The patient states that her abdomen has remained distended. She said that this distention has been going on for the last 2 weeks. She denies any fevers, chills, sweats, or any other acute complaints. Constitutional: + fatigue, No fever, No chills, No sweats Respiratory: No cough, No wheezing, No shortness of breath Cardiovascular: No chest pain, No edema, No palpitations Abdomen: + pain, + nausea, + diarrhea, No vomiting, No constipation, No GI bleeding Musculoskeletal: No joint pain, No calf pain Medications Current Inpatient Medications Medications (Trade) Dose Ordered Sig/Milly Route Start Time Stop Time Status Last Admin Dose Admin Ioversol (Optiray 320) 100 ml UD PRN IV 01/25/17 14:15 01/29/17 14:14 Heparin Sodium (Porcine) (Heparin Sq 5000 Unit/0.5ml) 5,000 unit Q8 SQ 01/26/17 06:00 02/25/17 05:59 01/28/17 05:43 5,000 UNIT Potassium Chloride/Sodium Chloride 1,000 ml @ 150 mls/hr Q6H40M IV 01/25/17 21:00 02/24/17 20:59 01/28/17 12:22 150 MLS/HR Acetaminophen (Tylenol Tab) 650 mg Q4H PRN PO 01/25/17 17:15 02/24/17 17:14 01/25/17 23:33 650 MG Al Hydrox/Mg Hydrox/Simethicone (Maalox Max Susp) 15 ml Q4H PRN PO 01/25/17 17:15 02/24/17 17:14 Magnesium Hydroxide (Milk Of Magnesia Susp) 30 ml Q12H PRN PO 01/25/17 17:15 02/24/17 17:14 Zolpidem Tartrate (Ambien Tab) 5 mg HSZ PRN PO 01/25/17 17:15 02/24/17 17:14 01/25/17 20:11 5 MG Ondansetron HCl (Zofran Inj) 4 mg Q6H PRN IV 01/25/17 17:15 02/24/17 17:14 Polyethylene (Miralax Powder Packet) 17 gm DAILY PRN PO 01/25/17 17:15 02/24/17 17:14 Amitriptyline HCl (Elavil Tab) 75 mg HS PO 01/25/17 21:00 02/24/17 20:59 01/27/17 20:29 75 MG Dicyclomine HCl (Bentyl Tab) 20 mg QID PRN PO 01/25/17 17:15 02/24/17 17:14 01/27/17 07:45 20 MG Levothyroxine Sodium (Synthroid Tab) 100 mcg DAILY PO 01/26/17 09:00 02/25/17 08:59 01/28/17 08:22 100 MCG Lisinopril (Zestril Tab) 20 mg DAILY PO 01/26/17 09:00 02/25/17 08:59 01/28/17 08:22 20 MG Pantoprazole Sodium 40 mg/ Syringe 10 ml @ 5 mls/min DAILY@11 IV 01/26/17 11:00 02/25/17 10:59 01/28/17 11:43 5 MLS/MIN Hydromorphone HCl (Dilaudid Inj) 1 mg Q4H PRN IV 01/25/17 19:30 02/08/17 19:29 01/28/17 09:18 1 MG Vancomycin HCl (Vancomycin Oral Soln) 125 mg QID PO 01/25/17 22:00 02/08/17 21:59 01/28/17 11:43 125 MG Raspberry (Raspberry Syrup 5ml Cup) 5 ml QID PO 01/25/17 22:00 02/08/17 21:59 01/28/17 11:43 5 ML Acetaminophen 650 mg/Empty Bag 65 ml @ 260 mls/hr Q6H PRN IV 01/26/17 06:30 02/25/17 06:29 01/26/17 08:03 260 MLS/HR Morphine Sulfate (MoRPHine SULFATE INJ) 4 mg Q4H PRN IV 01/27/17 16:00 02/08/17 17:14 Metronidazole 500 mg/Prmx 100 ml @ 100 mls/hr Q8H IV 01/28/17 14:00 02/11/17 13:59 Hyoscyamine Sulfate (Levsin Tab) 0.125 mg Q4H PRN PO 01/28/17 12:45 02/27/17 12:44 Objective Vital Signs Results Past 24 Hours Test 01/28/17 06:07 Range/Units White Blood Count 7.32 4.8-10.8 K/uL Red Blood Count 3.63 4.2-5.4 M/uL Hemoglobin 11.8 12.0-16.0 g/dL Hematocrit 35.6 37-47 % Mean Corpuscular Volume 98.1 80-100 fL Mean Corpuscular Hemoglobin 32.5 25-34 pg Mean Corpuscular Hemoglobin Concent 33.1 32-36 g/dl RDW Standard Deviation 44.0 36.4-46.3 fL RDW Coefficient of Variation 12.3 11.5-14.5 % Platelet Count 282 130-400 K/uL Mean Platelet Volume 9.6 7.4-10.4 fL Physical Exam General Appearance: WD/WN, no apparent distress Eyes: normal inspection, sclerae normal Respiratory/Chest: chest non-tender, lungs clear, normal breath sounds Cardiovascular: regular rate, rhythm, no edema, no gallop Abdomen: + pertinent finding (lower quadrant pain that is radiating to the left upper quadrant as well as to the back. This discomfort is mildly improved from yesterday. Abdomen is distended and slightly more firm when compared to yesterday's exam.) Extremities: no calf tenderness Neurologic/Psychiatric: alert, normal mood/affect, oriented x 3 Laboratory Results Results Past 24 Hours Test 01/28/17 06:07 Range/Units White Blood Count 7.32 4.8-10.8 K/uL Red Blood Count 3.63 4.2-5.4 M/uL Hemoglobin 11.8 12.0-16.0 g/dL Hematocrit 35.6 37-47 % Mean Corpuscular Volume 98.1 80-100 fL Mean Corpuscular Hemoglobin 32.5 25-34 pg Mean Corpuscular Hemoglobin Concent 33.1 32-36 g/dl RDW Standard Deviation 44.0 36.4-46.3 fL RDW Coefficient of Variation 12.3 11.5-14.5 % Platelet Count 282 130-400 K/uL Mean Platelet Volume 9.6 7.4-10.4 fL Assessment and Plan Patient is a 51 year old female that presented to the ED with a 10 day history of abdominal pain and nausea found to be secondary to C Diff colitis 1) C Diff Colitis - Continued distension with mild improvement in pain - KUB this morning shows no signs of toxic megacolon and patient has been afebrile with improving leukocytosis on Antibiotics - GI recommends adding flagyl to antibiotic coverage and discontinuing narcotic use - If distention does not improve with current plan, consider surgical consult - Daily KUB recommended - CT Abdomen 01/25: Progressive colonic wall thickening which now involves the entire colon. The findings are indicative of a pancolitis - KUB 01/28: Redemonstration of the diffuse colonic wall thickening consistent with a pancolitis. No evidence for bowel obstruction. - Vancomycin 124mg PO QID - Day 3 --> Total treatment 10-14 days - Flagyl 500mg IV TID - Levsin TID for cramping (Bentyl discontinued) - Pain: IV Tylenol + Lidoderm Patch - Leukocytosis improve--> 18.28 --> 12.9 --> 11.90 - Stool cultures for shiga toxins preliminarily negative 2) Hyponatremia - 2/2 Diarrhea - IV NS + 20 K 150mls / hr - Improved from 123 --> 131 --> 133 3) Hypokalemia - Resolved - 2/2 Diarrhea - IV NS + 20 K 150mls/ hr - Improved from 3.2 -->3.4 --> 3.5 4) UTI - Positive leukocytes and nitrites, but no blood or bacteria - > 30 epithelial cells so possibly contaminant 5) Pancreatitis - Lipase increased from 553-845 - IV Fluids - Advance diet to clear liquid 6) Hypertension - Continue home Lisinopril 20mg 7) GERD - Continue home Prilosec 20mg 8) Hypothyroidism - Continue home Synthroid 100mcg 9) DVT Prophylaxis - Heparin 10) Code Status - Full Resuscitation Resident Tracking Resident Involvement: Resident Care Provided Care Provided: Adult [facility] Medicine
[2017-01-28] MEDS: METRONIDAZOLE / NSS 500 MG in PREMIXED NSS 100 ML IV SCH ×2 (14:16→21:14)
[2017-01-28 14:59] VITALS: BP 154/112; PULSE 87; TEMP 36.9; O2SAT 98
[2017-01-28 15:20] VITALS: BP 152/105
[2017-01-28] MEDS: HYOSCYAMINE SULFATE 0.125 MG SL TAB PO PRN ×2 (17:06→22:09)
--- NOTE | 2017-01-28 17:34 | DIAGNOSTIC IMAGING REPORT ---
KUB HISTORY: C Diff Pancolitis with distension COMPARISON: KUB 01/28/2017. Abdomen and pelvis CT 01/25/2017. FINDINGS: No change in the mild diffuse colonic wall thickening. The ascending and transverse colon remains mildly distended measuring up to 6.8 cm. This is similar to the prior study. No dilated loops of small bowel to suggest an obstruction. No renal calculi. No ureteral calculi. No pneumoperitoneum or pneumatosis. IMPRESSION: No change in the diffuse colonic wall thickening consistent with a pancolitis. Gas-filled mildly distended ascending and transverse colon remains unchanged. Electronically signed by: Sadiq Hoffmann M.D. 01/28/2017 5:32 PM Dictated Date/Time: 01/28/2017 5:29 PM
[2017-01-28] MEDS: DICYCLOMINE HCL 20 MG TAB PO PRN (19:28)
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
[2017-01-28] MEDS: AMITRIPTYLINE HCL 25 MG TAB PO SCH (21:14)
[2017-01-28 23:52] VITALS: BP 158/109; PULSE 95; TEMP 36.9; O2SAT 95
[2017-01-29] MEDS: ZOLPIDEM TARTRATE 5 MG TAB PO PRN (00:55)
[2017-01-29] MEDS: DICYCLOMINE HCL 20 MG TAB PO PRN (00:55)
[2017-01-29] MEDS: NSS + 20MEQ KCL 1000ML 1,000 ML IV SCH ×3 (05:05→20:59)
[2017-01-29] MEDS: METRONIDAZOLE / NSS 500 MG in PREMIXED NSS 100 ML IV SCH ×3 (05:06→21:58)
[2017-01-29] MEDS: HEPARIN SOD 5000 UNIT/0.5 ML CARP SQ SCH ×3 (06:33→20:20)
[2017-01-29] MEDS: RASPBERRY SYRUP 5 ML UDP PO SCH ×4 (07:42→20:17)
[2017-01-29] MEDS: VANCOMYCIN HCL 125 MG/2.5ML SOLN PO SCH ×4 (07:42→20:17)
[2017-01-29] MEDS: LISINOPRIL 20 MG TAB PO SCH (07:43)
[2017-01-29] MEDS: LEVOTHYROXINE 100 MCG TAB PO SCH (07:43)
[2017-01-29] MEDS: LIDODERM (LIDOCAINE) PATCH 5% TD SCH ×2 (07:44→07:53)
[2017-01-29 07:45] VITALS: BP 158/112; PULSE 90; TEMP 37; O2SAT 98
[2017-01-29 08:00] VITALS: O2SAT 98
--- NOTE | 2017-01-29 08:08 | DIAGNOSTIC IMAGING REPORT ---
KUB CLINICAL HISTORY: C. difficile colitis. FINDINGS: 3 AP supine abdominal radiographs are compared to study dated 01/28/2017 and correlated with abdominal CT dated 01/25/2017. There is a nonobstructed abdominal bowel gas pattern. Wall thickening/edema is suggested in the right colon. There is mild diffuse gaseous distention of the colon which measures up to 6.5 cm in caliber. No evidence of intraperitoneal free air is seen. Pelvic phleboliths are observed. The Skeletal structures are osteopenic. Mild lumbosacral spondylosis is noted. IMPRESSION: 1. Nonobstructed abdominal bowel gas pattern. 2. Wall thickening/edema is suggested in the right colon consistent with the reported history of colitis. There is mild gaseous distention of the colon as above. Electronically signed by: Yasir Momin M.D. 01/29/2017 8:07 AM Dictated Date/Time: 01/29/2017 8:05 AM
--- NOTE | 2017-01-29 09:27 | Gastroenterology Progress Note ---
Progress Note Date of Service: Jan 29, 2017 Subjective Pt evaluation today including: conversation w/ patient, physical exam, lab review, review of studies Patient is a 51 yo female with C diff. She reports that she has had 2 stools in the past 24 hours. She reports that they are becoming more solid. She denies bleeding. She reports fevers/chills. She reports that her abdominal discomfort is improving since yesterday. She denies any new complaints. She has been afebrile and has no evidence of leukocytosis at present. She had a KUB this AM that did not indicate any concerning findings of obstruction, though there was thickening of the colon consistent with colitis. She is presently on Vancomycin and Metronidazole. Review of Systems Constitutional: + fever, + chills, + sweats Eyes: No problem reported Respiratory: No cough, No shortness of breath Cardiac: No chest pain Abdomen: + pain, No nausea, No vomiting, No diarrhea, No constipation, No GI bleeding Musculoskeletal: No joint pain Psych: No problem reported Skin: No problem reported Medications Current Inpatient Medications Medications (Trade) Dose Ordered Sig/Milly Route Start Time Stop Time Status Last Admin Dose Admin Ioversol (Optiray 320) 100 ml UD PRN IV 01/25/17 14:15 01/29/17 14:14 Heparin Sodium (Porcine) (Heparin Sq 5000 Unit/0.5ml) 5,000 unit Q8 SQ 01/26/17 06:00 02/25/17 05:59 01/29/17 06:33 5,000 UNIT Potassium Chloride/Sodium Chloride 1,000 ml @ 150 mls/hr Q6H40M IV 01/25/17 21:00 02/24/17 20:59 01/29/17 05:05 150 MLS/HR Acetaminophen (Tylenol Tab) 650 mg Q4H PRN PO 01/25/17 17:15 02/24/17 17:14 01/25/17 23:33 650 MG Al Hydrox/Mg Hydrox/Simethicone (Maalox Max Susp) 15 ml Q4H PRN PO 01/25/17 17:15 02/24/17 17:14 Magnesium Hydroxide (Milk Of Magnesia Susp) 30 ml Q12H PRN PO 01/25/17 17:15 02/24/17 17:14 Zolpidem Tartrate (Ambien Tab) 5 mg HSZ PRN PO 01/25/17 17:15 02/24/17 17:14 01/29/17 00:55 5 MG Ondansetron HCl (Zofran Inj) 4 mg Q6H PRN IV 01/25/17 17:15 02/24/17 17:14 Polyethylene (Miralax Powder Packet) 17 gm DAILY PRN PO 01/25/17 17:15 02/24/17 17:14 Amitriptyline HCl (Elavil Tab) 75 mg HS PO 01/25/17 21:00 02/24/17 20:59 01/28/17 21:14 75 MG Dicyclomine HCl (Bentyl Tab) 20 mg QID PRN PO 01/25/17 17:15 02/24/17 17:14 01/29/17 00:55 20 MG Levothyroxine Sodium (Synthroid Tab) 100 mcg DAILY PO 01/26/17 09:00 02/25/17 08:59 01/29/17 07:43 100 MCG Lisinopril (Zestril Tab) 20 mg DAILY PO 01/26/17 09:00 02/25/17 08:59 01/29/17 07:43 20 MG Pantoprazole Sodium 40 mg/ Syringe 10 ml @ 5 mls/min DAILY@11 IV 01/26/17 11:00 02/25/17 10:59 01/28/17 11:43 5 MLS/MIN Hydromorphone HCl (Dilaudid Inj) 1 mg Q4H PRN IV 01/25/17 19:30 02/08/17 19:29 Future Hold 01/28/17 09:18 1 MG Vancomycin HCl (Vancomycin Oral Soln) 125 mg QID PO 01/25/17 22:00 02/08/17 21:59 01/29/17 07:42 125 MG Raspberry (Raspberry Syrup 5ml Cup) 5 ml QID PO 01/25/17 22:00 02/08/17 21:59 01/29/17 07:42 5 ML Acetaminophen 650 mg/Empty Bag 65 ml @ 260 mls/hr Q6H PRN IV 01/26/17 06:30 02/25/17 06:29 01/26/17 08:03 260 MLS/HR Morphine Sulfate (MoRPHine SULFATE INJ) 4 mg Q4H PRN IV 01/27/17 16:00 02/08/17 17:14 Future Hold Metronidazole 500 mg/Prmx 100 ml @ 100 mls/hr Q8H IV 01/28/17 14:00 02/11/17 13:59 01/29/17 05:06 100 MLS/HR Hyoscyamine Sulfate (Levsin Tab) 0.125 mg Q4H PRN PO 01/28/17 12:45 02/27/17 12:44 01/28/17 22:09 0.125 MG Lidocaine (Lidoderm Patch 5%) 1 patch QAM TD 01/29/17 08:00 02/28/17 07:59 Miscellaneous (Remove Lidoderm Patch) 1 ea DAILY@21 N/A 01/28/17 21:00 02/27/17 20:59 01/28/17 21:13 1 EA Objective Vital Signs Date Time Temp Pulse Resp B/P (MAP) Pulse Ox O2 Delivery O2 Flow Rate FiO2 01/29/17 08:00 98 Room Air 01/29/17 07:45 37.0 90 18 158/112 (127) 98 Room Air 01/29/17 01:30 Room Air 01/28/17 23:52 36.9 95 20 158/109 (125) 95 Room Air 01/28/17 16:00 Room Air 01/28/17 15:20 152/105 (121) 01/28/17 14:59 36.9 87 18 154/112 (126) 98 Room Air Physical Exam General Appearance: WD/WN, no apparent distress Eyes: normal inspection, PERRL Respiratory/Chest: lungs clear Cardiovascular: regular rate, rhythm Abdomen: normal bowel sounds, + distended Extremities: non-tender Neurologic/Psych: alert, oriented x 3 Skin: normal color Assessment and Plan Patient is a 51 yo female who is hospitalized with C diff. She has some improvement of her abdominal discomfort this AM and no alarming findings on her KUB from this AM. 1) Agree with Dr. Ashford, would continue Vancomycin 125 mg po four times daily for 10-14 days along with Metronidazole 500 mg TID. 2) Stop Dicyclomine and try Levsin 0.125 mg po four times daily prn abdominal pain and cramping. 3) Repeat KUB if worsening. 4) Agree with Dr. Ashford regarding discontinuing narcotic pain medications as this is likely contributing, however it should be documented that the patient has been evaluated in our outpatient clinic for chronic symptoms of LLQ discomfort and abdominal pain. She has been referred to pain management in the past as well. 5) Continue to advance diet as tolerated. 6) Initiate probiotic--would recommend Florastor 250 mg BID. 7) Supportive care per primary team. Thank you for allowing us to participate in the care of this patient. If you should have any further questions or concerns, do not hesitate to contact us. Agree with SANDER Lanza as above Patient states she is feeling better today Abd: Soft, NT, ND, +BS Continue current therapy Continue supportive care
[2017-01-29] MEDS: ACETAMINOPHEN 325 MG TAB PO PRN ×2 (10:15→22:00)
[2017-01-29] MEDS: PANTOprazole INJ 40 MG in SYRINGE 0 ML IV SCH (10:17)
--- NOTE | 2017-01-29 11:10 | Family Medicine Progress Note ---
Progress Note Date of Service Jan 29, 2017. Subjective Pt evaluation today including: conversation w/ patient, physical exam, chart review, lab review, review of studies Pain: 8.5/10 pain this morning, sharp LLQ pain Voiding: no voiding problems, no incontinence Patient is laying in bed this morning with no acute complaints overnight. She states that her abdominal pain has marginally improved. She did have 4 loose bowel movement yesterday and states her abdominal distension has improved. Constitutional: + chills, No fever, No fatigue Respiratory: No cough, No shortness of breath Cardiovascular: No chest pain, No palpitations Abdomen: + pain, + nausea, No vomiting, No diarrhea, No constipation Neurologic: No weakness, No numbness/tingling Medications Current Inpatient Medications Medications (Trade) Dose Ordered Sig/Milly Route Start Time Stop Time Status Last Admin Dose Admin Heparin Sodium (Porcine) (Heparin Sq 5000 Unit/0.5ml) 5,000 unit Q8 SQ 01/26/17 06:00 02/25/17 05:59 01/29/17 13:09 5,000 UNIT Potassium Chloride/Sodium Chloride 1,000 ml @ 150 mls/hr Q6H40M IV 01/25/17 21:00 02/24/17 20:59 01/29/17 12:25 150 MLS/HR Acetaminophen (Tylenol Tab) 650 mg Q4H PRN PO 01/25/17 17:15 02/24/17 17:14 01/29/17 10:15 650 MG Al Hydrox/Mg Hydrox/Simethicone (Maalox Max Susp) 15 ml Q4H PRN PO 01/25/17 17:15 02/24/17 17:14 Magnesium Hydroxide (Milk Of Magnesia Susp) 30 ml Q12H PRN PO 01/25/17 17:15 02/24/17 17:14 Zolpidem Tartrate (Ambien Tab) 5 mg HSZ PRN PO 01/25/17 17:15 02/24/17 17:14 01/29/17 00:55 5 MG Ondansetron HCl (Zofran Inj) 4 mg Q6H PRN IV 01/25/17 17:15 02/24/17 17:14 Polyethylene (Miralax Powder Packet) 17 gm DAILY PRN PO 01/25/17 17:15 12/23/17 17:14 Amitriptyline HCl (Elavil Tab) 75 mg HS PO 01/25/17 21:00 02/24/17 20:59 01/28/17 21:14 75 MG Levothyroxine Sodium (Synthroid Tab) 100 mcg DAILY PO 01/26/17 09:00 02/25/17 08:59 01/29/17 07:43 100 MCG Lisinopril (Zestril Tab) 20 mg DAILY PO 01/26/17 09:00 02/25/17 08:59 01/29/17 07:43 20 MG Pantoprazole Sodium 40 mg/ Syringe 10 ml @ 5 mls/min DAILY@11 IV 01/26/17 11:00 02/25/17 10:59 01/29/17 10:17 5 MLS/MIN Hydromorphone HCl (Dilaudid Inj) 1 mg Q4H PRN IV 01/25/17 19:30 02/08/17 19:29 Future Hold 01/28/17 09:18 1 MG Vancomycin HCl (Vancomycin Oral Soln) 125 mg QID PO 01/25/17 22:00 02/08/17 21:59 01/29/17 12:25 125 MG Raspberry (Raspberry Syrup 5ml Cup) 5 ml QID PO 01/25/17 22:00 02/08/17 21:59 01/29/17 12:25 5 ML Acetaminophen 650 mg/Empty Bag 65 ml @ 260 mls/hr Q6H PRN IV 01/26/17 06:30 02/25/17 06:29 01/26/17 08:03 260 MLS/HR Morphine Sulfate (MoRPHine SULFATE INJ) 4 mg Q4H PRN IV 01/27/17 16:00 02/08/17 17:14 Future Hold Metronidazole 500 mg/Prmx 100 ml @ 100 mls/hr Q8H IV 01/28/17 14:00 02/11/17 13:59 01/29/17 13:00 100 MLS/HR Lidocaine (Lidoderm Patch 5%) 1 patch QAM TD 01/29/17 08:00 02/28/17 07:59 Miscellaneous (Remove Lidoderm Patch) 1 ea DAILY@21 N/A 01/28/17 21:00 02/27/17 20:59 01/28/17 21:13 1 EA Hyoscyamine Sulfate (Levsin Tab) 0.125 mg Q4H PRN PO 01/29/17 09:30 02/28/17 09:29 01/29/17 12:28 0.125 MG Saccharomyces Boulardii (Florastor Cap) 250 mg BID PO 01/29/17 20:00 02/28/17 19:59 Objective Vital Signs Date Time Temp Pulse Resp B/P (MAP) Pulse Ox O2 Delivery O2 Flow Rate FiO2 01/29/17 15:50 36.8 81 18 164/117 (133) 99 Room Air 01/29/17 08:00 98 Room Air 01/29/17 07:45 37.0 90 18 158/112 (127) 98 Room Air 01/29/17 01:30 Room Air 01/28/17 23:52 36.9 95 20 158/109 (125) 95 Room Air Physical Exam General Appearance: WD/WN, + mild distress Eyes: normal inspection, sclerae normal Respiratory/Chest: chest non-tender, lungs clear, normal breath sounds Cardiovascular: regular rate, rhythm, no edema, no gallop Abdomen: normal bowel sounds, soft, + distended (mild, improved from yesterday , no longer firm), + pertinent finding (myofacial trigger points palpated over the abdomen. No guarding or rebound tenderness. ) Extremities: no pedal edema, no calf tenderness Neurologic/Psychiatric: alert, normal mood/affect, oriented x 3 Assessment and Plan Patient is a 51 year old female that presented to the ED with a 10 day history of abdominal pain and nausea found to be secondary to C Diff colitis 1) C Diff Colitis - Significant improvement of distension and abdominal firmness. Patient subjective pain also appears to have improved. Abdominal pain may be multifactorial as patient clearly has discomfort secondary to pancolitis, although patient has previous prolonged 1 year history of abdominal pain. On palpation of the abdomen there were myofascial trigger points identified, and patient would definitely benefit from outpatient pain management. - KUB - no signs of toxic megacolon and patient has been afebrile with improving leukocytosis on Antibiotics - PO Vancomycin + IV Flagyl - Holding all Narcotics at this time --> Topical Lidocaine and IV Tylenol currently on board - General surgery consulted although due to improvement of abdominal distension their services will not be required at this time - CT Abdomen 01/25: Progressive colonic wall thickening which now involves the entire colon. The findings are indicative of a pancolitis - KUB 01/28: Redemonstration of the diffuse colonic wall thickening consistent with a pancolitis. No evidence for bowel obstruction. - KUB 01/29: Non obstructed gas pattern --> Maximal distension of colon 6.5 cm - Vancomycin 124mg PO QID - Day 3 --> Total treatment 10-14 days - Flagyl 500mg IV TID - Levsin TID for cramping (Bentyl discontinued) - Leukocytosis improving--> 18.28 --> 12.9 --> 11.90 - Stool cultures for shiga toxins preliminarily negative - Advance diet as tolerated --> Currently tolerating clear liquids 2) Hyponatremia - 2/2 Diarrhea - IV NS + 20 K 150mls / hr - Improved from 123 --> 131 --> 133 3) Hypokalemia - Resolved - 2/2 Diarrhea - IV NS + 20 K 150mls/ hr - Improved from 3.2 -->3.4 --> 3.5 4) UTI - Positive leukocytes and nitrites, but no blood or bacteria - > 30 epithelial cells so possibly contaminant 5) Pancreatitis - Lipase increased from 553-845 - IV Fluids - Advancing diet as tolerated --> Currently tolerated clear liquid diet 6) Hypertension - Continue home Lisinopril 20mg 7) GERD - Continue home Prilosec 20mg 8) Hypothyroidism - Continue home Synthroid 100mcg 9) DVT Prophylaxis - Heparin 10) Code Status - Full Resuscitation Resident Physician Supervision Note: I interviewed and examined the patient. Discussed with Dr. Allred and agree with findings and plan as documented in the note. Any exceptions or clarifications are listed here: None Documented By: Simon Peña pain finally improving. notes chronic pain persists vitals noted nad breathing unlabored no pallor or icterus suspect i feel trigger points left upper abdominal wall - definitely sore. mild/moderate distention no guarding no rebound Cdiff colitis w sepsis on admission - improving. continue abx chronic pain - ?trigger point related - refer to pain management for eval and if appropriate, injections Resident Tracking Resident Involvement: Resident Care Provided Care Provided: Adult [facility] Medicine
[2017-01-29] MEDS: HYOSCYAMINE SULFATE 0.125 MG SL TAB PO PRN ×2 (12:28→17:20)
[2017-01-29 15:50] VITALS: BP 164/117; PULSE 81; TEMP 36.8; O2SAT 99
[2017-01-29] MEDS: SACCHAROMYCES BOUL (FLORASTOR) 250 MG CAP PO SCH (20:18)
[2017-01-29] MEDS: AMITRIPTYLINE HCL 25 MG TAB PO SCH (20:18)
[2017-01-29 23:24] VITALS: BP 149/105; PULSE 89; TEMP 36.9; O2SAT 99
[2017-01-30] MEDS: NSS + 20MEQ KCL 1000ML 1,000 ML IV SCH ×2 (04:28→08:34)
[2017-01-30] MEDS: METRONIDAZOLE / NSS 500 MG in PREMIXED NSS 100 ML IV SCH (05:11)
[2017-01-30] MEDS: HEPARIN SOD 5000 UNIT/0.5 ML CARP SQ SCH (05:11)
[2017-01-30] MEDS: ACETAMINOPHEN 325 MG TAB PO PRN (05:18)
[2017-01-30 06:36] LABS: BUN/CREATININE RATIO 3.8 (10-20); CALCIUM 7.7 mg/dl (8.5-10.1); CREATININE 0.47 mg/dl (0.60-1.20); POTASSIUM 3.3 mmol/L (3.5-5.1)
[2017-01-30 07:24] VITALS: BP 141/94; PULSE 87; TEMP 37.1; O2SAT 99
[2017-01-30] MEDS: RASPBERRY SYRUP 5 ML UDP PO SCH ×2 (08:33→12:58)
[2017-01-30] MEDS: VANCOMYCIN HCL 125 MG/2.5ML SOLN PO SCH ×2 (08:33→12:57)
[2017-01-30] MEDS: HYOSCYAMINE SULFATE 0.125 MG SL TAB PO PRN (08:34)
[2017-01-30] MEDS: LEVOTHYROXINE 100 MCG TAB PO SCH (08:34)
[2017-01-30] MEDS: LIDODERM (LIDOCAINE) PATCH 5% TD SCH (08:34)
[2017-01-30] MEDS: SACCHAROMYCES BOUL (FLORASTOR) 250 MG CAP PO SCH (08:34)
[2017-01-30] MEDS: LISINOPRIL 20 MG TAB PO SCH (08:34)
[2017-01-30] MEDS: PANTOprazole INJ 40 MG in SYRINGE 0 ML IV SCH (08:35)
[2017-01-30] MEDS ORDERED: DICL1GEL12 TOP (12:12)
[2017-01-30] MEDS ORDERED: NF1094 PO (12:12)
--- NOTE | 2017-01-30 12:22 | Discharge Instructions ---
Discharge Instructions Date of Service Jan 30, 2017. Admission Reason for Admission: Possible Sepsis, Higgins Colitis, Uti Discharge Discharge Diagnosis / Problem: C Diff Colitis Discharge Goals Goal(s): Decrease discomfort, Therapeutic intervention Activity Recommendations Activity Limitations: as noted below Lifting Limitations: gradually increase as tolerated Exercise/Sports Limitations: gradually increase as tolerated . Instructions / Follow-Up Instructions / Follow-Up Your treated in the hospital for an abdominal infection called C. difficile colitis. Your treated with oral and IV antibiotics initially, and your pain was treated with IV pain medications. Your abdominal pain and discomfort significantly improved throughout your hospitalization, in addition to your abdominal distention. We will be continuing the antibiotics that we started during your hospitalization, called oral vancomycin. Newly to take these medications for another 10 days. Some abdominal trigger points were also found during your evaluation, and it is recommended that you use topical Voltaren gel 3 times per day regularly in order to help improve this pain. We will also be arranging a follow-up visit with pain management. Medications: Vancomycin 125 mg: Take 1 tablet 4 times per day for the next 10 days. He will have a total of 38 pills to take over that time (you received 2 extra doses in the hospital) Voltaren Gel: Apply 1 g of gel to the left side of your abdomen at the location of your pain 3 times per day Resume other home medications Acetaminophen(Tylenol) may be used for fever or pain. Use 1000mg every six hours as needed. Avoid using more than 4000mg in a 24 hour period. Rest and drink plenty of fluids as tolerated. Slow sips of water or sports drinks are recommended instead of large amounts all at once. Return to the ER immediately for worsening or persistent abdominal pain, vomiting, fevers, chest pains, difficulty breathing, black or bloody stools, worsening of your condition, or as needed. Follow-up with 's office for your missed colonoscopy during her hospitalization Follow up with your primary physician in 2-3 days for a recheck of your current condition. Make sure at home to practice proper hand washing and use bleach wipes in order to kill spores on inanimate objects and surfaces. Also use soap and water to wash your hands. Current Hospital Diet Patient's current hospital diet: Regular Diet Discharge Diet Recommended Diet: AHA Diet (Heart Healthy) Pending Studies Studies pending at discharge: no Medical Emergencies . Who to Call and When: Medical Emergencies: If at any time you feel your situation is an emergency, please call 911 immediately. . Non-Emergent Contact Non-Emergency issues call your: Primary Care Provider, [facility] [employer] [facility]usher . . "Provider Documentation" section prepared by Benjamin Allred. . VTE Core Measure Inpt VTE Proph given/why not?: SCD's Resident Tracking Resident Involvement: Resident Care Provided Care Provided: Adult Hospital Medicine
[2017-01-30 12:51] VITALS: BP 141/94; PULSE 87; TEMP 37.1; O2SAT 99
--- NOTE | 2017-01-31 09:00 | Discharge Summary ---
Discharge Summary Date of Service Jan 30, 2017. (Benjamin Allred MD) Discharge Summary Admission Date: Jan 25, 2017 at 17:19 Discharge Date: Jan 30, 2017 Discharge Disposition: Home Principal Diagnosis: Clostridium Difficile Colitis Problems/Secondary Diagnoses: Hypertension, Trigger Points (Benjamin Allred MD) Medication Reconciliation New Medications: Diclofenac Sodium (Topical) (Voltaren 1% Top Gel) 1 % Gel 1 GM TOP TID for 14 Days, #60 GM Vancomycin HCl (Vancomycin HCl) 100 Mg/Ml Inj 125 MG PO QID for 10 Days, #38 TAB Continued Medications: Amitriptyline Hcl (Elavil) 75 Mg Tab 75 MG PO HS Dicyclomine Hcl (Bentyl) 20 Mg Tab 20 MG PO QID PRN for Pain, #20 TAB Levothyroxine Sodium (Synthroid) 100 Mcg Tab 100 MCG PO DAILY, TAB Lisinopril (Prinivil) 20 Mg Tab 20 MG PO DAILY, TAB Nifedipine (Nifedipine) 10 Mg Cap 10 MG PO HS PRN for . Omeprazole (Prilosec) 20 Mg Cap 20 MG PO QAM, #30 Discontinued Medications: Ibuprofen Tab (Advil) 200 Mg Tab 200-600 MG PO Q4H PRN for Pain, TAB Discharge Exam Review of Systems: Constitutional: + fatigue, No fever, No chills, No weight loss Respiratory: No cough, No shortness of breath Cardiovascular: No chest pain, No palpitations Abdomen: + pain, + diarrhea, + problem reported (6/10 left sided pain), No nausea, No vomiting, No constipation Musculoskeletal: No swelling, No calf pain Genitourinary - Female: No dysuria Physical Exam: General Appearance: WD/WN, no apparent distress, + pertinent finding ( Patient appears significantly more comfortable today with no acute distress on examination) Eyes: normal inspection, sclerae normal Neck: supple Respiratory/Chest: chest non-tender, lungs clear, normal breath sounds Cardiovascular: regular rate, rhythm, no edema, no gallop, no murmur Abdomen / GI: normal bowel sounds, soft, + pertinent finding (Abdomen is no longer distended, mild tenderness to palpation of the LLQ with no rebound. Soft to touch.) Neurologic/Psychiatric: alert, normal reflexes, oriented x 3 (Benjamin Allred MD) Hospital Course Patient is a 51 year old female that initially presented with severe abdominal pain and diarrhea for 5 days. She had been seen in the ED 5 days prior with abdominal pain and was started on Augmentin. The patient in the ED was found to have C Diff and on imaging Pancolitis. - Started on Vancomiycin PO + IV Flagyl --> Seen by ID and required to be on 14 days course of PO Vanc - Had worsening distension and firmness --> Abdominal X-Ray showed now obstruction - Continued to improve pain (initially 9/10, improved to 6/10 on discharge) - Discharged patient with instructions to take Tylenol for pain and continue PO antibiotics - Also found to have trigger points over the abdomen and wrote prescription for Voltaren gel with instructions to follow up with pain management Total Time Spent: Greater than 30 minutes This includes examination of the patient, discharge planning, medication reconciliation, and communication with other providers. (Benjamin Allred MD) Resident Physician Supervision Note: I interviewed and examined the patient. Discussed with Dr. Allred and agree with findings and plan as documented in the note. Any exceptions or clarifications are listed here: None Documented By: Simon Peña feeling better pain more in line wiht what has been her crhonic pain. no diarrhea. extensive discussions on Cdiff treatment, chance of recurrence, home infection precautions, etc. also discussed pain management and diclofenac gel for possible trigger points vitals noted nad breathing unlabored abd less distended no pallor or icterus cdiff colitis causing acute on chronic abdominal pain - vanco, stable for home chronic abdominal pain - seems to have upper abdominal trigger points - not totally clear but evident enough that it warrants pain management eval - referral made, diclofenac gel qid to L upper abdomen pending pain eval stable for home Total Time Spent: Greater than 30 minutes (Simon Peña, D.OAnderson) Discharge Instructions Please refer to the electronic Patient Visit Report (Discharge Instructions) for additional information. (Benjamin Allred MD) Additional Copies To Uzma Garcia PA-C Resident Tracking Resident Involvement: Resident Care Provided Care Provided: [facility] Medicine (Benjamin Allred MD)
== END 2017-01-30 13:06 | disposition home or self-care (01) | DRG 371 ==
LOC: C.EDB 12:38 → C.2E 17:19 → UNDOADMIN 17:19 → ENRESERV 17:41 → C.4E 01-27 16:30
PROVIDERS: ADMIT Hospitalist; ATTEND Family Medicine
DX: A04.7 Enterocolitis due to Clostridium difficile (principal); K85.90 Acute pancreatitis without necrosis or infection, unspecified; K51.00 Ulcerative (chronic) pancolitis without complications; N39.0 Urinary tract infection, site not specified; E87.1 Hypo-osmolality and hyponatremia; I10 Essential (primary) hypertension; Z83.3 Family history of diabetes mellitus; Z82.49 Family history of ischemic heart disease and other diseases of the circulatory system; K21.9 Gastro-esophageal reflux disease without esophagitis; D72.829 Elevated white blood cell count, unspecified; E87.6 Hypokalemia; E03.9 Hypothyroidism, unspecified; F41.9 Anxiety disorder, unspecified

== ENCOUNTER → 2017-04-06 | Outpatient (CLI) | payer OTHER ==
[~2017-04-06] MED LIST changes: -AMOX875T PO; -DICY20TA35 PO; +IBUP1TAB PO; +LEVO112T2 PO; +OPTIRAY 320 IV PRN; -TRAM-453 PO
--- NOTE | 2017-04-06 10:51 | DIAGNOSTIC IMAGING REPORT ---
CT LIVER (ABDOMEN) COMBO CT DOSE: 2337.61 mGycm CLINICAL HISTORY: Hepatic mass TECHNIQUE: Unenhanced images were obtained through the upper abdomen. The patient was then scanned in a dynamic helical fashion during intravenous administration of 93 cc of Optiray 320. 30 seconds, 80 seconds, 2 minute, 3 minute, 4 minute, and 5 minute images were acquired. A dose lowering technique was utilized adhering to the principles of ALARA. COMPARISON STUDY: 01/25/2017 FINDINGS: There are patchy left basal airspace opacities, likely atelectatic. No gallbladder abnormalities are visualized. No splenic masses are visualized. No adrenal masses are visualized. No pancreatic masses are visualized. There is no evidence of abdominal aortic dilatation. No renal calculi are visualized. There are no solid renal masses. There is no evidence of pathologic adenopathy. There is a stable 18 mm focus of diminished attenuation within the medial segment of the left lobe of the liver, unchanged from the preceding study. Also evident is a stable 4 mm right lobe hepatic hypodensity. Delayed images reveal no evidence of progressive enhancement. IMPRESSION: 1. Stable 4 mm right lobe hepatic hypodensity. 2. Stable 18 mm focus of diminished attenuation within the medial segment left lobe of the liver. While nonspecific, in all likelihood this represents an area of focal fat. 3. Left basilar airspace opacities likely atelectatic Electronically signed by: Delvin Fisher M.D. 04/06/2017 10:50 AM Dictated Date/Time: 04/06/2017 10:44 AM
== END | disposition home or self-care (01) ==
LOC: C.CTS 09:55
PROVIDERS: ATTEND Physician Assistant
DX: K76.9 Liver disease, unspecified (principal); R10.9 Unspecified abdominal pain; R91.8 Other nonspecific abnormal finding of lung field

== ENCOUNTER → 2017-04-17 | Day surgery (SDC) | payer OTHER ==
[2017-04-10 13:55] VITALS: Ht 167.6 cm; Wt 77.3 kg
[~2017-04-17] VITALS: Ht 167.6 cm; Wt 77.3 kg
[~2017-04-17] MED LIST changes: -LEVO100T PO; +LIDOCAINE HCL 2% 2 ML VIAL (20MG/ML) ONE; -OPTIRAY 320 IV PRN; +PROPOFOL IV EMULSION 10 MG/ML 20 ML VIAL IV ONE; +SODIUM CHLORIDE 0.9% 500ML 500 ML IV ONE
--- NOTE | 2017-04-17 11:28 | Endo History and Physical ---
History & Physical Date of Service: Apr 17, 2017. Chief Complaint: change in bowel habits,colitis Referring Physician: Uzma Garcia PA-C History of Present Illness 51 yo CF who presents for Colonoscopy secondary to change in bowel habits and colitis. Past Medical History Arthritis, Gastrointestinal Disorder, Anxiety, Thyroid Disease, Kidney Disease, Depression Past Surgical History Hx Cardiac Surgery: No Hx Internal Defibrillator: No Hx Pacemaker: No Hx Abdominal Surgery: Yes ( X3) Hx of Implantable Prosthesis: No Hx Post-Op Nausea and Vomiting: No Hx Cancer Surgery: No Hx Thoracic Surgery: No Hx Orthopedic: No Hx Urinary Tract Surgery: No Family History None Social History Smoking Status: Never Smoker Hx Substance Use: No Hx Alcohol Use: Yes (3-6 DRINKS RUM OR WINE/DAY) Allergies Coded Allergies: Tramadol (Verified Adverse Reaction, Unknown, NAUSEA, 04/17/17) Current Medications Reported Home Medications Medications Dose Route/Sig Max Daily Dose Days Date Category Advil Pm (Ibuprofen-Diphenhydramine Citr) 1 Tab Tab 1 Tab PO HS PRN 04/10/17 Reported Synthroid (Levothyroxine Sodium) 112 Mcg Tab 112 Mcg PO QAM 04/10/17 Reported Elavil (Amitriptyline Hcl) 75 Mg Tab 75 Mg PO HS PRN 01/21/17 Reported Prinivil (Lisinopril) 20 Mg Tab 20 Mg PO QAM 01/21/17 Reported Prilosec (Omeprazole) 20 Mg Cap 20 Mg PO QAM 03/08/14 Reported Nifedipine 10 Mg Cap 10 Mg PO DAILY PRN 03/08/14 Reported Vital Signs Weight (Kilograms): 77.27 Height (Feet): 5 Height (Inches): 6 Date Time Temp Pulse Resp B/P (MAP) Pulse Ox O2 Delivery O2 Flow Rate FiO2 04/17/17 11:12 36.5 105 18 108/80 (89) 98 Room Air Physical Exam General Appearance: WD/WN, no apparent distress Respiratory/Chest: Auscultation: breath sounds normal Cardiovascular: Heart Auscultation: RRR Abdomen: Bowel Sounds: normal Inspection & Palpation: soft, non-distended, no tenderness, guarding & rebound Assessment and Plan Assessment: 51 yo CF who presents for Colonoscopy secondary to change in bowel habits and colitis. Plan: Proceed with colonoscopy.
--- NOTE | 2017-04-17 11:57 | GI REPORT ---
Procedure Date: 04/17/2017 11:15 AM Procedure: Colonoscopy Indications: Abnormal CT of the GI tract, Change in bowel habits Medicines: Monitored Anesthesia Care Complications: No immediate complications. Estimated Blood Loss: Estimated blood loss: none. Procedure: Pre-Anesthesia Assessment: - Prior to the procedure, a History and Physical was performed, and patient medications and allergies were reviewed. The patient's tolerance of previous anesthesia was also reviewed. The risks and benefits of the procedure and the sedation options and risks were discussed with the patient. All questions were answered, and informed consent was obtained. Prior Anticoagulants: The patient has taken no previous anticoagulant or antiplatelet agents. ASA Grade Assessment: II - A patient with mild systemic disease. After reviewing the risks and benefits, the patient was deemed in satisfactory condition to undergo the procedure. After I obtained informed consent, the scope was passed under direct vision. Throughout the procedure, the patient's blood pressure, pulse, and oxygen saturations were monitored continuously. The scope was introduced through the anus and advanced to the terminal ileum. The colonoscopy was performed without difficulty. The patient tolerated the procedure well. The quality of the bowel preparation was fair. The terminal ileum, ileocecal valve, appendiceal orifice, and rectum were photographed. Findings: The perianal and digital rectal examinations were normal. Extensive amounts of stool was found in the entire colon, interfering with visualization. Lavage of the area was performed using a large amount of normal saline, resulting in incomplete clearance with fair visualization. Multiple small-mouthed diverticula were found in the sigmoid colon. Non-bleeding internal hemorrhoids were found during retroflexion. The hemorrhoids were small. Several random biopsies were obtained with cold forceps for histology in the entire colon. Impression: - Preparation of the colon was fair. - Stool in the entire examined colon. - Diverticulosis in the sigmoid colon. - Non-bleeding internal hemorrhoids. - Several random biopsies were obtained in the entire colon. Recommendation: - Resume previous diet. - Continue present medications. - Repeat colonoscopy because the bowel preparation was poor and for surveillance based on pathology results. - Return to primary care physician as previously scheduled. Fadi Howard DO 04/17/2017 11:56:24 AM This report has been signed electronically. Note Initiated On: 04/17/2017 11:15 AM I attest to the content of the Intraoperative Record and orders documented therein, exceptions below
--- NOTE | 2017-04-17 12:18 | Discharge Instructions ---
Endoscopy Patient Instructions Date / Procedure(s) Performed Apr 17, 2017. Colonoscopy Allergy Information Coded Allergies: Tramadol (Verified Adverse Reaction, Unknown, NAUSEA, 04/17/17) Discharge Date / Findings Apr 17, 2017. Random colon biopsies Diverticulosis Internal hemorrhoids Fair bowel prep Medication Instructions OK to resume all medications today as prescribed Reported Home Medications Medications Dose Route/Sig Max Daily Dose Days Date Category Advil Pm (Ibuprofen-Diphenhydramine Citr) 1 Tab Tab 1 Tab PO HS PRN 04/10/17 Reported Synthroid (Levothyroxine Sodium) 112 Mcg Tab 112 Mcg PO QAM 04/10/17 Reported Elavil (Amitriptyline Hcl) 75 Mg Tab 75 Mg PO HS PRN 01/21/17 Reported Prinivil (Lisinopril) 20 Mg Tab 20 Mg PO QAM 01/21/17 Reported Prilosec (Omeprazole) 20 Mg Cap 20 Mg PO QAM 03/08/14 Reported Nifedipine 10 Mg Cap 10 Mg PO DAILY PRN 03/08/14 Reported Provider Instructions Activity Restrictions - No exercising or heavy lifting for 24 hours. - Do not drink alcohol the day of the procedure. - Do not drive a car or operate machinery until the day after the procedure. - Do not make any important decisions or sign important papers in 24 hours after the procedure. Following Day: - Return to full activity which may include returning to work/school. Diet Start your diet with liquids and light foods (jello, soup, juice, toast). Then eat your usual diet if not nauseated. Treatment For Common After Affects For mild abdominal pain, bloating, or excessive gas: - Rest - Eat lightly - Lie on right side Follow-Up Information Follow-up with Uzma Garcia PA-C as scheduled Anesthesia Information What You Should Know You have had a procedure that required some medicine to reduce anxiety and discomfort. This treatment is called moderate sedation. After receiving the treatment, you may be sleepy, but you will be able to breathe on your own. The effects of the treatment may last for several hours. Follow these instructions along with Activity/Diet recommendations noted above: * Do NOT do anything where dizziness or clumsiness would be dangerous. * Rest quietly at home today, then you can be up and about tomorrow. * Have a responsible person stay with you the rest of today. * You may have had an I.V. today. If so, you may take the dressing off later today. Recommendations Call your doctor if: * Trouble breathing * Continuous vomiting for more than 24 hours * Temperature above 101 degrees * Severe abdominal pain or bloating * Pain not relieved by pain medicine ordered * There is increased drainage or redness from any incision * A large amount of rectal bleeding greater than 2-3 tablespoons. (If you had a polyp/s removed or have hemorrhoids, a small amount of blood - from the rectum is to be expected.) * You have any unanswered questions or concerns. IN THE EVENT OF A SERIOUS EMERGENCY, GO TO THE NEAREST EMERGENCY ROOM Your discharge instructions were prepared by provider Fadi Howard. Patient Instructions Signature Page Anh Toribio Patient (or Guardian) Signature/Date: I have read and understand the instructions given to me by my caregivers. Caregiver/RN/Doctor Signature/Date: The above-named patient and/or guardian has received patient instructions on this date. + Original Patient Signature Page (only) stays with chart. Please make copy for patient.
[2017-04-17 12:30] VITALS: BP 118/84; PULSE 88; O2SAT 99
--- NOTE | 2017-04-17 13:59 | Anesthesiology Progress Note ---
Anesthesia Post Op Note Date & Time Apr 17, 2017 at 13:59 Vital Signs Pain Intensity: 0 Vital Signs Past 12 Hours Date Time Temp Pulse Resp B/P (MAP) Pulse Ox O2 Delivery O2 Flow Rate FiO2 04/17/17 12:30 88 20 118/84 (95) 99 Room Air 04/17/17 12:15 89 18 94/60 (71) 98 Room Air 04/17/17 11:57 87 18 97/67 (77) 99 Room Air 04/17/17 11:12 36.5 105 18 108/80 (89) 98 Room Air Notes Mental Status: alert / awake / arousable, participated in evaluation Pt Amnestic to Procedure: Yes Nausea / Vomiting: adequately controlled Pain: adequately controlled Airway Patency, RR, SpO2: stable & adequate BP & HR: stable & adequate Hydration State: stable & adequate Anesthetic Complications: no major complications apparent
== END | disposition home or self-care (01) ==
LOC: C.GI 10:45
PROVIDERS: ATTEND Internal Medicine
DX: R19.4 Change in bowel habit (principal); R93.3 Abnormal findings on diagnostic imaging of other parts of digestive tract; K52.9 Noninfective gastroenteritis and colitis, unspecified; K57.30 Diverticulosis of large intestine without perforation or abscess without bleeding; K64.8 Other hemorrhoids; E07.9 Disorder of thyroid, unspecified; Z88.6 Allergy status to analgesic agent

== ENCOUNTER → 2017-05-14 | Outpatient (CLI) | payer OTHER ==
[~2017-05-14] MED LIST changes: -LIDOCAINE HCL 2% 2 ML VIAL (20MG/ML) ONE; -PROPOFOL IV EMULSION 10 MG/ML 20 ML VIAL IV ONE; -SODIUM CHLORIDE 0.9% 500ML 500 ML IV ONE
--- NOTE | 2017-05-14 10:48 | DIAGNOSTIC IMAGING REPORT ---
SI JOINTS 3 OR MORE VIEWS CLINICAL HISTORY: LUMBAGO,SACROILIITIS COMPARISON STUDY: CT of the abdomen and pelvis January 25, 2017. FINDINGS: The sacroiliac joints are intact without evidence for ankylosis. No erosions are identified. IMPRESSION: No radiographic evidence of sacroiliitis. Electronically signed by: Heber Lugo M.D. 05/14/2017 10:46 AM Dictated Date/Time: 05/14/2017 10:45 AM
== END | disposition home or self-care (01) ==
LOC: C.RADBC 10:00
PROVIDERS: ATTEND Physician Assistant Medical
DX: M54.5 Low back pain (principal); M46.1 Sacroiliitis, not elsewhere classified

== ENCOUNTER 2017-09-28 08:45 | Emergency (ER) | payer OTHER ==
[~2017-09-28] VITALS: Ht 167.6 cm; Wt 74.8 kg
[2017-09-28 08:48] VITALS: TEMP 36.8; Ht 167.6 cm; Wt 74.8 kg
[2017-09-28] MEDS ORDERED: CYCLOBENZAPRINE HCL 10 MG TAB PO STA (09:18)
[2017-09-28] MEDS ORDERED: KETOROLAC TROMETHAMINE 60 MG/2 ML VIAL IM STA (09:18)
--- NOTE | 2017-09-28 10:13 | DIAGNOSTIC IMAGING REPORT ---
L PELVIS/UNILATERAL HIP 2-3VIEWS HISTORY: 52 years-old Female LEFT HIP/LOW BACK PAIN acute left hip and low back pain COMPARISON: Lumbar spine radiographs of same day, CT abdomen and pelvis 01/25/2017 TECHNIQUE: AP view of the pelvis with 2 views of the left hip FINDINGS: Degenerative changes of the pubic symphysis, SI joints and lower lumbar spine. 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 No acute fracture or dislocation identified. The imaged left femur appears intact. IMPRESSION: No acute fracture or dislocation. The above report was generated using voice recognition software. It may contain grammatical, syntax or spelling errors. Electronically signed by: Charlie Bryant M.D. 09/28/2017 10:12 AM Dictated Date/Time: 09/28/2017 10:10 AM
--- NOTE | 2017-09-28 10:15 | DIAGNOSTIC IMAGING REPORT ---
L-SPINE MIN 4 VIEWS ROUTINE HISTORY: 52 years-old Female LEFT LOW BACK PAIN acute low back pain, worse on the left. COMPARISON: Pelvis and left hip radiographs of same day, CT abdomen and pelvis 01/25/2017 TECHNIQUE: 5 views of the lumbar spine FINDINGS: There are 5 nonrib-bearing lumbar type vertebral segments present. No spondylolysis or spondylolisthesis. Severe intervertebral disc space narrowing with spondylitic spurring and severe facet arthropathy redemonstrated at L5-S1. There is unchanged 6 mm retrolisthesis L4 on L5. Moderate intervertebral disc space narrowing at L3-L4 with 4 mm retrolisthesis L3 on L4 also unchanged. Multilevel spondylitic spurring. No acute fracture or subluxation identified. IMPRESSION: 1. No acute fracture or subluxation. 2. Unchanged multilevel degenerative changes with severe intervertebral disc space narrowing and facet arthropathy at L5-S1. The above report was generated using voice recognition software. It may contain grammatical, syntax or spelling errors. Electronically signed by: Charlie Bryant M.D. 09/28/2017 10:14 AM Dictated Date/Time: 09/28/2017 10:12 AM
[2017-09-28] MEDS ORDERED: CYCL10TA6 PO (10:43)
--- NOTE | 2017-09-28 10:43 | EMERGENCY ROOM VISIT NOTE ---
ED Visit Note First contact with patient: 08:53 CHIEF COMPLAINT: Left-sided low back pain times several months, worsening in the last 1-2 weeks HISTORY OF PRESENT ILLNESS: Patient is a 52-year-old female who presents the emergency department complaint by her fianc for evaluation of left low back pain. She reports that she has had problems for several months, but they have been worsening in the last couple of weeks. She describes a stabbing, burning pain in the left low back that does not radiate. She is tried ice, heat, over- the-counter medications including Tylenol and ibuprofen, and reports that she was placed on amitriptyline by her primary care provider from [facility], but she states that she did not like the way that the amitriptyline made her feel in the morning. She fully admits that she drinks from to access in order to help mask her pain. The patient denies any anterior abdominal pain, no dysuria, frequency, urgency or hematuria. No bowel or bladder incontinence or saddle anesthesias. There is no numbness, tingling or weakness radiating into her legs she presently rates her pain an 8/10. Patient was questioned further after old records were reviewed, which note that she has been seen by pain management recently for pain very similar to this. She underwent a SI joint injection for sacroiliitis in June of this year which she reports gave her limited relief, but she had no further follow-up with pain management since. The patient does report that she had a fall on her a wet driveway between now the time of her injection, but denies any other new injuries. REVIEW OF SYSTEMS: Review of systems as per HPI. All other systems reviewed were negative. 10 systems reviewed. PMH: Electronic medical records are reviewed and summarized as above/below. See Problem List. SOCIAL HISTORY: Patient lives at home her boyfriend. Smoker, heavy alcohol. Unemployed. PHYSICAL EXAM: Vital Signs: Reviewed Nurse's notes. CONSTITUTIONAL: Patient is an uncomfortable appearing 52-year-old female who is awake and alert and sitting on the gurney holding her left back in mild distress. There is no significant discomfort noted with position changes. NECK: No bruits auscultated. Supple without lymphadenopathy. No thyromegaly. No meningeal signs. Full active range of motion without discomfort. CARDIOVASCULAR: Regular rate and rhythm, with normal S1 and S2, no murmur or gallop or rub is heard. No carotid bruits auscultated. No JVD. Peripheral pulses easily palpable. RESPIRATORY: Breath sounds equal and clear to auscultation without wheezes, rales, or rhonchi heard. Full and equal chest expansion without accessory muscle use or retractions. ABDOMEN: Bowel sounds are present. Abdomen is soft, nontender and nondistended. INTEGUMENTARY: No lesions or rash, normal skin turgor. LYMPH: No lymphadenopathy. SPINE: Examination of the patient's back does not demonstrate any ecchymosis, abrasions or outward signs of trauma. No erythema, increased warmth or induration. Patient has no midline discomfort to palpation over the lumbar spinous processes. She does however also tenderness and spasm, as well as left- sided SI joint discomfort. She has increased pain with range of motion including rotation and flexion. EXTREMITIES: Leg lengths are symmetrical. Negative logroll bilaterally. Normal strength including dorsi-flexion and plantar flexion of the great toes and ankles and flexion and extension of the knees and flexion of the hips. Negative bilateral straight leg raise testing. Lower extremity DTRs are equal and symmetrical bilaterally. Distal pulses are easily palpable. Sensation light touch is intact over the lower extremities bilaterally. EMERGENCY DEPARTMENT COURSE: The patient was seen and evaluated as above. Her old records are reviewed, including her pain management visit from earlier this year. She presents the emergency department with very similar left-sided low back pain which is reproducible in nature, feels more muscular or related to the sacroiliitis. She has a benign physical exam at this time. She is medicated with Toradol and Flexeril, lumbar spine and AP pelvis and hip x-rays were obtained. Findings included degenerative changes. Urinalysis was notable for contamination, with mucus, sediment and greater than 30 epithelial cells. She is not having any urinary symptoms therefore further culture was not obtained. The patient was advised to follow closely with pain management for further care and evaluation of her pain. She certainly has not exhausted all of her options with regards to interventions. She was given a prescription for Flexeril to use as needed for any muscle spasms and was encouraged to use heat and ibuprofen. She is discharged home with her significant other in good condition. She still rated her pain an 8/10 at discharge. MEDICAL DECISION MAKING: I do not suspect acute compression syndrome, cauda equina, diskitis, epidural abscess, hematoma or neurovascular compromise. Medication reconciliation: I attest that I have personally reviewed the patient' s current medication list. Blood pressure screening : Patient was found to have normal blood pressure on screening and does not require follow-up. Patient was reviewed in the [facility] Prescription Drug Monitoring Program, and there were no red flags noted. L PELVIS/UNILATERAL HIP 2-3VIEWS HISTORY: 52 years-old Female LEFT HIP/LOW BACK PAIN acute left hip and low back pain COMPARISON: Lumbar spine radiographs of same day, CT abdomen and pelvis 01/25/2017 TECHNIQUE: AP view of the pelvis with 2 views of the left hip FINDINGS: Degenerative changes of the pubic symphysis, SI joints and lower lumbar spine. 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 No acute fracture or dislocation identified. The imaged left femur appears intact. IMPRESSION: No acute fracture or dislocation. L-SPINE MIN 4 VIEWS ROUTINE HISTORY: 52 years-old Female LEFT LOW BACK PAIN acute low back pain, worse on the left. COMPARISON: Pelvis and left hip radiographs of same day, CT abdomen and pelvis 01/25/2017 TECHNIQUE: 5 views of the lumbar spine FINDINGS: There are 5 nonrib-bearing lumbar type vertebral segments present. No spondylolysis or spondylolisthesis. Severe intervertebral disc space narrowing with spondylitic spurring and severe facet arthropathy redemonstrated at L5-S1. There is unchanged 6 mm retrolisthesis L4 on L5. Moderate intervertebral disc space narrowing at L3-L4 with 4 mm retrolisthesis L3 on L4 also unchanged. Multilevel spondylitic spurring. No acute fracture or subluxation identified. IMPRESSION: 1. No acute fracture or subluxation. 2. Unchanged multilevel degenerative changes with severe intervertebral disc space narrowing and facet arthropathy at L5-S1. Problem List Medical Problems: (1) Abdominal pain Status: Resolved (2) Abdominal pain Status: Resolved (3) Abdominal pain Status: Resolved (4) Abdominal pain Status: Resolved (5) Acid reflux Status: Chronic (6) Anxiety State Nos Status: Chronic (7) Bowel wall thickening Status: Resolved (8) Bowel wall thickening Status: Resolved (9) Depressive Disorder Nec Status: Chronic (10) Flank pain Status: Resolved (11) Flank pain Status: Resolved (12) Hypertension Status: Chronic (13) Hypothyroidism Nos Status: Chronic (14) Pancolitis Status: Resolved (15) possible sepsis, [place] colitis, UTI Status: Resolved (16) UTI (urinary tract infection) Status: Resolved (17) UTI (urinary tract infection) Status: Resolved Surgical Problems: (1) Hx of section Status: Resolved (2) Tubal Ligation Status Status: Resolved Current/Historical Medications Scheduled Levothyroxine Sodium (Synthroid), 112 MCG PO QAM Lisinopril (Prinivil), 20 MG PO QAM Omeprazole (Prilosec), 20 MG PO QAM Scheduled PRN Amitriptyline Hcl (Elavil), 75 MG PO HS PRN for Sleep Cyclobenzaprine Hcl (Flexeril), 10 MG PO TID PRN for Muscle Spasms Ibuprofen-Diphenhydramine Citr (Advil Pm), 1 TAB PO HS PRN for Sleep Nifedipine (Nifedipine), 10 MG PO DAILY PRN for RAYNAUDS SYMPTOMS Allergies Coded Allergies: Tramadol (Verified Adverse Reaction, Unknown, NAUSEA, 04/17/17) Vital Signs Date Time Temp Pulse Resp B/P (MAP) Pulse Ox O2 Delivery O2 Flow Rate FiO2 09/28/17 10:45 96 20 140/90 98 Room Air 09/28/17 08:48 36.8 101 18 107/76 99 Room Air Laboratory Results Test 09/28/17 10:30 Urine Color DK YELLOW Urine Appearance TURBID (CLEAR) Urine pH 6.0 (4.5-7.5) Urine Specific [place] 1.021 (1.000-1.030) Urine Protein TRACE (NEG) Urine Glucose (UA) NEG (NEG) Urine Ketones NEG (NEG) Urine Occult Blood NEG (NEG) Urine Nitrite NEG (NEG) Urine Bilirubin NEG (NEG) Urine Urobilinogen NEG (NEG) Urine Leukocyte Esterase SMALL (NEG) Urine WBC (Auto) >30 /hpf (0-5) Urine RBC (Auto) 0-4 /hpf (0-4) Urine Hyaline Casts (Auto) 1-5 /lpf (0-5) Urine Epithelial Cells (Auto) >30 /lpf (0-5) Urine Bacteria (Auto) 2+ (NEG) Urine Crystals AMORPHOUS SEDIMENT (NONE Urine Pathogenic Casts /lpf (0) Urine Mucus PRESENT (NONE PRSENT) Medications Administered Medications (Trade) Dose Ordered Sig/Milly Route Start Time Stop Time Status Last Admin Dose Admin Ketorolac Tromethamine (Toradol Inj) 60 mg NOW STAT IM 09/28/17 09:18 09/28/17 09:19 DC 09/28/17 09:31 60 MG Cyclobenzaprine HCl (Flexeril Tab) 10 mg NOW STAT PO 09/28/17 09:18 09/28/17 09:19 DC 09/28/17 09:30 10 MG Departure Information Impression Primary Impression: Left low back pain Prescriptions Cyclobenzaprine Hcl (FLEXERIL) 10 Mg Tab 10 MG PO TID Y for Muscle Spasms, #30 TAB Prov: Marquita Gallegos PA 09/28/17 Referrals No Doctor, Assigned (PCP) Patient Instructions [facility] Additional Instructions DO NOT drive, drink alcohol, operate machinery, or perform dangerous activities today. You were given medications in the ER that can affect your ability to safely function or operate a vehicle. Cyclobenzaprine (Flexeril) 10 mg: Take 1 pills 3 times daily as needed for muscle spasms.. Avoid alcohol, operating machinery or dangerous equipment, working on ladders or roofs, DRIVING, or situations where being under the influence may be dangerous. Ibuprofen(Motrin, Advil) may be used for fever or pain. Use 600mg every six hours as needed. Take with food. Avoid using more than 2400mg in a 24 hour period. Do not use 2400mg per day for more than three consecutive days without physician direction. Prolonged inappropriate use can lead to stomach upset or ulcers. This medication can be taken if you need to drive, work, or perform activities which may be dangerous when taking narcotic pain medication. (AND/OR) Acetaminophen(Tylenol) may be used for fever or pain. Use 1000mg every six hours as needed. Avoid using more than 3000mg in a 24 hour period. This medication can be taken if you need to drive, work, or perform activities which may be dangerous when taking narcotic pain medication. Rest and avoid heavy lifting until your symptoms resolve and then gradually return to full activity. A good rule of thumb is if it hurts your back to perform a certain activity, then it should be avoided until you are healthy again. A heating pad, warm compresses, or a hot shower may help with tight muscles and can be done several times a day as needed. Continue current medications. Return to the ER immediately for any numbness, tingling, severe pain, loss of control of your bowels or bladder, inability to walk, or as needed. Follow up with your primary care physician within 3-5 days for a recheck of your current condition. Follow-up with [facility] for further care and evaluation of your back pain. Problem Qualifiers Primary Impression: Left low back pain Chronicity: chronic Sciatica presence: without sciatica Qualified Codes: M54.5 - Low back pain; G89.29 - Other chronic pain
[2017-09-28 10:45] VITALS: BP 140/90; PULSE 96; O2SAT 98
== END 2017-09-28 11:15 | disposition home or self-care (01) ==
LOC: C.EDB 08:46 → C.EDA 11:15
DX: M54.5 Low back pain (principal); G89.29 Other chronic pain; K21.9 Gastro-esophageal reflux disease without esophagitis; F32.9 Major depressive disorder, single episode, unspecified; I10 Essential (primary) hypertension; E03.9 Hypothyroidism, unspecified; Z79.899 Other long term (current) drug therapy; Z88.6 Allergy status to analgesic agent; F17.200 Nicotine dependence, unspecified, uncomplicated

== ENCOUNTER → 2017-10-08 | Outpatient (CLI) | payer OTHER ==
[~2017-10-08] MED LIST changes: +CYCL10TA6 PO
--- NOTE | 2017-10-08 09:14 | DIAGNOSTIC IMAGING REPORT ---
ULTRASOUND RIGHT UPPER QUADRANT ABDOMEN CLINICAL HISTORY: Liver lesion. COMPARISON STUDY: Abdominal CT dated 04/06/2017. TECHNIQUE: Real-time, grayscale, and color flow sonography of the right upper quadrant of the abdomen was performed. Images are reviewed in the transverse and longitudinal planes. FINDINGS: Liver: The liver is normal in size and demonstrates heterogeneously increased echotexture consistent with hepatic steatosis. There is no intrahepatic biliary ductal dilatation. The main portal vein is patent. A 7 mm cyst is incidentally noted in the left lobe. The 4 mm right lobe hypodensity seen by CT was not visualized. Gallbladder: The gallbladder is normal in appearance. No gallstones are identified. There is no gallbladder wall thickening or pericholecystic fluid. A sonographic Muir's sign is reportedly absent. The common bile duct measures up to 0.5 cm in diameter. Pancreas: Visualized portions of the pancreatic head and body are normal in appearance. Right kidney: Survey images of the right kidney demonstrate normal size and echotexture. There is no hydronephrosis. Ascites: None. IMPRESSION: 1. There is a 7 mm cyst noted in the left hepatic lobe. 2. The 4 mm presumed cyst in the right lobe seen by CT on 04/06/2017 was not visualized by ultrasound. 3. Hepatic steatosis. Electronically signed by: Yasir Momin M.D. 10/08/2017 9:12 AM Dictated Date/Time: 10/08/2017 9:10 AM
== END | disposition home or self-care (01) ==
LOC: C.ULTR 08:08
PROVIDERS: ATTEND Physician Assistant
DX: K76.89 Other specified diseases of liver (principal); K76.0 Fatty (change of) liver, not elsewhere classified

== ENCOUNTER 2017-10-23 08:01 | Emergency (ER) | payer OTHER ==
[~2017-10-23] VITALS: Ht 167.6 cm; Wt 78.0 kg
[~2017-10-23 08:01] MED LIST changes: -CYCL10TA6 PO
[2017-10-23 08:06] VITALS: TEMP 36.3; Ht 167.6 cm; Wt 78.0 kg
[2017-10-23] MEDS ORDERED: LIDODERM (LIDOCAINE) PATCH 5% TD STA (08:16)
[2017-10-23] MEDS ORDERED: KETOROLAC TROMETHAMINE 30 MG/ML VIAL IV STA (08:16)
[2017-10-23] MEDS ORDERED: HYDROmorphone INJ 1 MG/ML SYR IV STA ×3 (08:16→11:37)
[2017-10-23] MEDS ORDERED: ONDANSETRON INJ 2 MG/ML 2 ML VIAL IV STA (08:16)
--- NOTE | 2017-10-23 08:19 | EMERGENCY ROOM VISIT NOTE ---
History Report prepared by Maddie: Javon Hernandez Under the Supervision of: Dr. Pavan Clarke M.D. First contact with patient: 08:09 Chief Complaint: RESPIRATORY PROBLEMS Stated Complaint: BREATHING ISSUES,LEFT SIDE FRONT BACK THROBBING History of Present Illness The patient is a 52 year old female who presents to the Emergency Room with complaints of severe left sided abdominal pain and left sided back pain that has been worsening over the past 3 days. The patient and her note that she has been having these issues for years and she has come into the emergency department for them several times. She describes the pain as "selena" over her left ribs and wrapping around into the left side of her back. The patient notes that applying pressure improves the pain. Source of History: patient, spouse/significant other Onset: 3 days Position: abdomen (Left) Quality: other (selena pain) Timing: worsening Modifying Factors (Relieving): other (applying pressure) Review of Systems See HPI for pertinent positives & negatives. A total of 10 systems reviewed and were otherwise negative. Past Medical & Surgical Medical Problems: (1) Abdominal pain (2) Abdominal pain (3) Abdominal pain (4) Abdominal pain (5) Acid reflux (6) Anxiety State Nos (7) Bowel wall thickening (8) Bowel wall thickening (9) Depressive Disorder Nec (10) Flank pain (11) Flank pain (12) Hypertension (13) Hypothyroidism Nos (14) Pancolitis (15) possible sepsis, [place] colitis, UTI (16) UTI (urinary tract infection) (17) UTI (urinary tract infection) Surgical Problems: (1) Hx of section (2) Tubal Ligation Status Family History Cancer Cancer Diabetes mellitus Diabetes mellitus FH: heart disease FH: heart disease Hypertension Hypertension Social History Smoking Status: Never Smoker Alcohol Use: occasionally Drug Use: none Marital Status: in relationship Housing Status: lives with significant other Occupation Status: unemployed Current/Historical Medications Scheduled Levothyroxine Sodium (Synthroid), Unknown Dose PO QAM Lisinopril (Prinivil), 20 MG PO QAM Omeprazole (Prilosec), 20 MG PO QAM Scheduled PRN Nifedipine (Nifedipine), 10 MG PO DAILY PRN for RAYNAUDS SYMPTOMS Oxycodone/Acetaminophen 5MG/325MG (Percocet 5MG/325MG), 1-2 TAB PO Q4H PRN for Pain Allergies Coded Allergies: Tramadol (Verified Adverse Reaction, Unknown, NAUSEA, 10/23/17) Physical Exam Vital Signs Date Time Temp Pulse Resp B/P (MAP) Pulse Ox O2 Delivery O2 Flow Rate FiO2 10/23/17 14:15 96 17 144/99 97 10/23/17 14:08 96 17 144/99 97 Room Air 10/23/17 13:00 92 17 153/96 95 10/23/17 12:01 94 16 135/80 98 Room Air 10/23/17 09:40 99 16 135/96 95 Room Air 10/23/17 09:04 94 10/23/17 09:02 98 17 151/115 94 Room Air 10/23/17 08:06 36.3 115 22 143/102 99 Room Air Physical Exam GENERAL: Awake, alert HENT: Normocephalic, atraumatic. Oropharynx unremarkable. EYES: Normal conjunctiva. Sclera non-icteric. NECK: Supple. No nuchal rigidity. FROM. No JVD. RESPIRATORY: Clear to auscultation. CARDIAC: Regular rate, normal rhythm. Extremities warm and well perfused. Pulses equal. ABDOMEN: Soft, non-distended. No tenderness to palpation. No rebound or guarding. No masses. RECTAL: Deferred. MUSCULOSKELETAL: Chest examination reveals no tenderness. The back is symmetrical on inspection without obvious abnormality. There is no CVA tenderness to palpation. No joint edema. LOWER EXTREMITIES: Calves are equal size bilaterally and non-tender. No edema. No discoloration. NEURO: Normal sensorium. No sensory or motor deficits noted. SKIN: No rash or jaundice noted. Medical Decision & Procedures ER Provider Diagnostic Interpretation: Radiology results as stated below per my review and radiologist interpretation: THORACIC SPINE WITHOUT CLINICAL HISTORY: 52 years-old Female presenting with Pt c/o Rt sided T10 pain. TECHNIQUE: Multisequence, multiplanar MR imaging of the thoracic spine was performed without the use of intravenous contrast. IV contrast: None. COMPARISON: None. FINDINGS: Localizer images: Diverticulosis of the sigmoid colon. Mild dextroscoliotic curvature of the thoracic spine centered at T9-10. Otherwise normal thoracic kyphosis. Vertebral bodies maintain normal height, alignment, and bone marrow signal intensity. Intervertebral disc heights preserved. Small disc osteophyte complexes noted at T1 to through T3-4 as well as T7-8 and T8-9. No significant resulting in effacement of the thecal sac. No neural foraminal narrowing. Focal abnormal spinal cord signal intensity at the level of T5-6, which extends for a length of 3.2 cm. There is a suspected internal cystic component. The this lesion expands the spinal cord at this level and is intradural, intramedullary. This lesion primarily involves the central and dorsal cord. No additional spinal cord lesion is evident. No epidural collection. Paraspinal musculature normal. Remaining visualized soft tissues normal. IMPRESSION: 1. 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 This is incompletely evaluated without intravenous contrast. Further evaluation with contrast-enhanced MR of the thoracic spine recommended. The appearance favors a a soft tissue mass given its focality and degree of cord expansion. This is favored to represent a glial neoplasm such as an ependymoma given the suspected cystic focus. The report will be called/faxed according to standard departmental protocol. Electronically signed by: Donald Ortiz M.D. 10/23/2017 11:28 AM L RIBS UNILATERAL WITH PA CHEST CLINICAL HISTORY: 52 years-old Female presenting with Pt c/o left sided 10th rib pain. TECHNIQUE: Frontal and oblique views of the left ribs as well as PA view of the chest were obtained. COMPARISON: Chest x-ray from 2007. FINDINGS: Cardiac silhouette mildly enlarged, new from prior. Bandlike opacities in the left lower lung new from prior. No other focal opacity. No pleural effusion or pneumothorax. Upper abdomen normal. No displaced left rib fracture. Specifically, the 10th rib is normal appearing. IMPRESSION: 1. No displaced left rib fracture. Specifically, the left 10th rib is normal appearing. 2. Left basilar atelectasis suspected. 3. Mild cardiomegaly, new from prior. Electronically signed by: Donald Ortiz M.D. 10/23/2017 9:14 AM Dictated Date/Time: 10/23/2017 9:05 AM MRI OF THE THORACIC SPINE WITH AND WITHOUT CONTRAST CLINICAL HISTORY: Right sided thoracic pain. Abnormal noncontrast MRI. COMPARISON STUDY: MRI of the thoracic spine October 23, 2017 at 10:45 AM. TECHNIQUE: Utilizing a 1.5 Layla magnet and dedicated coil, multiplanar, multi echo imaging of the thoracic spine was performed pre and postcontrast administration. Intravenous injection of 7.5 cc of Gadavist IV was uneventful. FINDINGS: Alignment of the thoracic spine is anatomic. Vertebral body heights are maintained. There is no suspicious marrow replacement. Exam is mildly compromised by motion artifact but no enhancement of the T2 hyperintense focus shown on noncontrast MRI at the T5-T6 level is noted. This focus is better depicted on the T2 sequence from the noncontrast MRI. No abnormal thoracic cord enhancement is present. There is no enhancement within the canal of the thoracic spine. Paravertebral soft tissues are unremarkable. Note is made of mild dilatation of visualized portions of the ascending aorta which measures approximately 4.1 cm. This is suboptimally assessed on this exam. There is no central canal or neural foraminal stenosis. IMPRESSION: 1. No enhancement of the T2 hyperintense focus within the cord at the T5-T6 level. This remains nonspecific. A neoplasm is considered much less likely given the lack of enhancement. However, a follow-up MRI in 3 months to ensure stability is recommended. Differential considerations include demyelination, transverse myelitis or less likely focal cord infarct. In addition, an abnormality such as an arachnoid web or a idiopathic spinal cord herniation are within the differential. 2. Mild dilatation of visualized portions of the ascending aorta, measuring approximately 4.1 cm. Electronically signed by: Heber Lugo M.D. 10/23/2017 1:37 PM Dictated Date/Time: 10/23/2017 1:01 PM Laboratory Results 10/23/17 08:32 Red Blood Count 4.42, Mean Corpuscular Volume 96.8, Mean Corpuscular Hemoglobin 32.8, Mean Corpuscular Hemoglobin Concent 33.9, Mean Platelet Volume 9.0, Neutrophils (%) (Auto) 68.3, Lymphocytes (%) (Auto) 14.5, Monocytes (%) (Auto) 13.6, Eosinophils (%) (Auto) 2.3, Basophils (%) (Auto) 1.1, Neutrophils # (Auto ) 3.20, Lymphocytes # (Auto) 0.68, Monocytes # (Auto) 0.64, Eosinophils # (Auto ) 0.11, Basophils # (Auto) 0.05 10/23/17 08:32 Test 10/23/17 08:20 10/23/17 08:32 Urine Color YELLOW Urine Appearance CLEAR (CLEAR) Urine pH 7.0 (4.5-7.5) Urine Specific [place] 1.013 (1.000-1.030) Urine Protein NEG (NEG) Urine Glucose (UA) NEG (NEG) Urine Ketones NEG (NEG) Urine Occult Blood NEG (NEG) Urine Nitrite NEG (NEG) Urine Bilirubin NEG (NEG) Urine Urobilinogen NEG (NEG) Urine Leukocyte Esterase MODERATE (NEG) Urine WBC (Auto) 5-10 /hpf (0-5) Urine RBC (Auto) 0-4 /hpf (0-4) Urine Hyaline Casts (Auto) 1-5 /lpf (0-5) Urine Epithelial Cells (Auto) >30 /lpf (0-5) Urine Bacteria (Auto) 1+ (NEG) White Blood Count 4.69 K/uL (4.8-10.8) Red Blood Count 4.42 M/uL (4.2-5.4) Hemoglobin 14.5 g/dL (12.0-16.0) Hematocrit 42.8 % (37-47) Mean Corpuscular Volume 96.8 fL (80-100) Mean Corpuscular Hemoglobin 32.8 pg (25-34) Mean Corpuscular Hemoglobin Concent 33.9 g/dl (32-36) Platelet Count 341 K/uL (130-400) Mean Platelet Volume 9.0 fL (7.4-10.4) Neutrophils (%) (Auto) 68.3 % Lymphocytes (%) (Auto) 14.5 % Monocytes (%) (Auto) 13.6 % Eosinophils (%) (Auto) 2.3 % Basophils (%) (Auto) 1.1 % Neutrophils # (Auto) 3.20 K/uL (1.4-6.5) Lymphocytes # (Auto) 0.68 K/uL (1.2-3.4) Monocytes # (Auto) 0.64 K/uL (0.11-0.59) Eosinophils # (Auto) 0.11 K/uL (0-0.5) Basophils # (Auto) 0.05 K/uL (0-0.2) RDW Standard Deviation 43.7 fL (36.4-46.3) RDW Coefficient of Variation 12.4 % (11.5-14.5) Immature Granulocyte % (Auto) 0.2 % Immature Granulocyte # (Auto) 0.01 K/uL (0.00-0.02) Erythrocyte Sedimentation Rate 48 mm/hr (0-21) Anion Gap 8.0 mmol/L (3-11) Est Creatinine Clear Calc Drug Dose 86.7 ml/min Estimated GFR () 98.2 Estimated GFR (Non- 84.8 BUN/Creatinine Ratio 8.7 (10-20) Calcium Level 9.8 mg/dl (8.5-10.1) Total Bilirubin 0.3 mg/dl (0.2-1) Direct Bilirubin < 0.1 mg/dl (0-0.2) Aspartate Amino Transf (AST/SGOT) 27 U/L (15-37) Alanine Aminotransferase (ALT/SGPT) 28 U/L (12-78) Alkaline Phosphatase 101 U/L (45-117) C-Reactive Protein 1.99 mg/dl (0-0.29) Total Protein 9.0 gm/dl (6.4-8.2) Albumin 4.2 gm/dl (3.4-5.0) Lipase 114 U/L (73-393) Labs reviewed by ED physician. Medications Administered Medications (Trade) Dose Ordered Sig/Milly Route Start Time Stop Time Status Last Admin Dose Admin Lidocaine (Lidoderm Patch 5%) 1 patch NOW STAT TD 10/23/17 08:16 10/23/17 08:19 DC 10/23/17 08:28 1 PATCH Ketorolac Tromethamine (Toradol Inj) 30 mg NOW STAT IV 10/23/17 08:16 10/23/17 08:19 DC 10/23/17 08:42 30 MG Hydromorphone HCl (Dilaudid Inj) 1 mg NOW STAT IV 10/23/17 08:16 10/23/17 08:19 DC 10/23/17 08:42 1 MG Ondansetron HCl (Zofran Inj) 4 mg NOW STAT IV 10/23/17 08:16 10/23/17 08:19 DC 10/23/17 08:40 4 MG Ceftriaxone Sodium (Rocephin Inj) 1 gm NOW STAT IV 10/23/17 08:53 10/23/17 08:54 DC 10/23/17 09:04 1 GM Hydromorphone HCl (Dilaudid Inj) 1 mg NOW STAT IV 10/23/17 09:18 10/23/17 09:19 DC 10/23/17 09:40 1 MG Metoclopramide HCl (Reglan Inj) 10 mg NOW STAT IV 10/23/17 09:18 10/23/17 09:19 DC 10/23/17 09:39 10 MG Hydromorphone HCl (Dilaudid Inj) 1 mg NOW STAT IV 10/23/17 11:37 10/23/17 11:39 DC 10/23/17 12:00 1 MG Dexamethasone Sodium Phosphate (Decadron Inj) 10 mg STK-MED ONCE .ROUTE 10/23/17 14:04 10/23/17 14:05 DC 10/23/17 14:10 10 MG ED Course 0812: Past medical records reviewed. The patient was evaluated in room A11B. A complete history and physical examination was performed. 0816: Ordered Zofran Inj 4 mg IV, Dilaudid Inj 1 mg IV, Toradol Inj 30 mg IV, Lidocaine 1 patch TD. 0853: Ordered Rocephin Inj 1 gm IV. 0918: Ordered Reglan Inj 10 mg IV, Dilaudid Inj 1 mg IV. 1136: I reevaluated the patient and updated her on her test results at this time. 1137: Ordered Dilaudid Inj 1 mg IV. 1346: I discussed the patient's case with Dr. Rebolledo- Orthopedics. He states that the patient can follow up with him as an outpatient. 1349: Upon reexamination the patient is resting comfortably. I discussed results and treatment plan with the patient. She verbalizes agreement and understanding. The patient is ready for discharge. 1357: Ordered Dexamethasone Sodium Phosphate 10 mg/Syringe 2.5 ml @ 1 mls/min IV. Medical Decision Prior records/ancillary studies reviewed. Triage Nursing notes reviewed. Differential diagnosis: Etiologies such as appendicitis, diverticulitis, PUD, biliary pathology, UTI, pancreatitis, obstruction, mesenteric ischemia, aortic pathology, infections, inflammatory bowel disease, renal colic, as well as others were entertained. This is a 52-year-old female who presents emergency department complaining of back pain that has been ongoing for months. Patient describes the back pain as being on her left and radiating around her rib cage. The patient has had multiple CAT scans however nothing has been found. She was given a Lidoderm patch for the pain along with Toradol and Dilaudid. She was sent for an MRI of the spine. Radiology is requesting a MRI with contrast. This showed a nonspecific nonenhancing signal. I did discuss this with the on-call orthopedic surgeon felt that the patient was well enough to be discharged home for follow-up with orthopedics. I did try Decadron here in the emergency department to see if that would improve the patient's symptoms. She was given Percocet for home I stressed the need for follow-up with orthopedics. Patient was in agreement with the treatment plan. Medication Reconcilliation Current Medication List: was personally reviewed by me Blood Pressure Screening Patient's blood pressure: Elevated blood pressure Blood pressure disposition: Elevated BP felt to be situational Consults Time Called: 1343 Consulting Physician: Dr. Rebolledo- Orthopedics Returned Call: 1344 I discussed the patient's case with Dr. Leona Plunkett. He states that the patient can follow up with him as an outpatient. Impression Primary Impression: Back pain Scribe Attestation The scribe's documentation has been prepared under my direction and personally reviewed by me in its entirety. I confirm that the note above accurately reflects all work, treatment, procedures, and medical decision making performed by me. Departure Information Dispostion Home / Self-Care Prescriptions Oxycodone/Acetaminophen 5MG/325MG (PERCOCET 5MG/325MG) Tab 1-2 TAB PO Q4H Y for Pain, #14 TAB Prov: Pavan Clarke MD 10/23/17 Referrals Uzma Garcia PA-C (PCP) Forms HOME CARE DOCUMENTATION FORM, IMPORTANT VISIT INFORMATION, WORK / SCHOOL INSTRUCTIONS Patient Instructions My [facility] Additional Instructions Follow up with Dr Rebolledo's office You received narcotic or benzodiazepene medication while in the emergency room today. This is an addictive medication that may cause drowziness as well as constipation. Do not drive, operate heavy machinery, or drink alcohol under the influence of this medication. Take 600 mg Ibuprofen every 6 hours Take Percocet for breakthrough pain You have been examined and treated today on an emergency basis only. This is not a substitute for, or an effort to provide, complete comprehensive medical care. It is impossible to recognize and treat all injuries or illnesses in a single emergency department visit. It is therefore important that you follow up closely with Dr Garcia. Call as soon as possible for an appointment. Thank you for your time and consideration. I look forward to speaking with you again soon. Please don't hesitate to call us if you have any questions. Problem Qualifiers Primary Impression: Back pain Back pain location: thoracic back pain Chronicity: acute Back pain laterality: bilateral Qualified Codes: M54.6 - Pain in thoracic spine
[2017-10-23 08:49] LABS: BASO % 1.1 %; BASO ABS # 0.05 K/uL (0-0.2); EOS % 2.3 %; EOS ABS # 0.11 K/uL (0-0.5); HEMATOCRIT 42.8 % (37-47); HEMOGLOBIN 14.5 g/dL (12.0-16.0); IG# 0.01 K/uL (0.00-0.02); LYMPH % 14.5 %; LYMPH ABS # 0.68 K/uL (1.2-3.4); MEAN CELL VOLUME 96.8 fL (80-100); MEAN CORPUSCULAR HEMOGLOBIN 32.8 pg (25-34); MEAN CORPUSCULAR HGB CONC 33.9 g/dl (32-36); MONO % 13.6 %; MONO ABS # 0.64 K/uL (0.11-0.59); NEUT % 68.3 %; PLATELET COUNT 341 K/uL (130-400); RED CELL DISTRIBUTION WIDTH CV 12.4 % (11.5-14.5); RED CELL DISTRIBUTION WIDTH SD 43.7 fL (36.4-46.3); WHITE BLOOD COUNT 4.69 K/uL (4.8-10.8)
[2017-10-23] MEDS ORDERED: CEFTRIAXONE SOD INJ 1 GM ADDVIAL IV STA (08:53)
[2017-10-23 09:07] LABS: ALBUMIN 4.2 gm/dl (3.4-5.0); ALKALINE PHOSPHATASE 101 U/L (45-117); ALT/SGPT 28 U/L (12-78); AST/SGOT 27 U/L (15-37); BLOOD UREA NITROGEN 7 mg/dl (7-18); CALCIUM 9.8 mg/dl (8.5-10.1); CARBON DIOXIDE 26 mmol/L (21-32); GLUCOSE 103 mg/dl (70-99); LIPASE 114 U/L (73-393); POTASSIUM 3.8 mmol/L (3.5-5.1); SODIUM 132 mmol/L (136-145)
--- NOTE | 2017-10-23 09:15 | DIAGNOSTIC IMAGING REPORT ---
L RIBS UNILATERAL WITH PA CHEST CLINICAL HISTORY: 52 years-old Female presenting with Pt c/o left sided 10th rib pain. TECHNIQUE: Frontal and oblique views of the left ribs as well as PA view of the chest were obtained. COMPARISON: Chest x-ray from 2007. FINDINGS: Cardiac silhouette mildly enlarged, new from prior. Bandlike opacities in the left lower lung new from prior. No other focal opacity. No pleural effusion or pneumothorax. Upper abdomen normal. No displaced left rib fracture. Specifically, the 10th rib is normal appearing. IMPRESSION: 1. No displaced left rib fracture. Specifically, the left 10th rib is normal appearing. 2. Left basilar atelectasis suspected. 3. Mild cardiomegaly, new from prior. Electronically signed by: Donald Ortiz M.D. 10/23/2017 9:14 AM Dictated Date/Time: 10/23/2017 9:05 AM
[2017-10-23] MEDS ORDERED: METOCLOPRAMIDE HCL INJ 5 MG/ML 2 ML VIAL IV STA (09:18)
--- NOTE | 2017-10-23 11:29 | DIAGNOSTIC IMAGING REPORT ---
THORACIC SPINE WITHOUT CLINICAL HISTORY: 52 years-old Female presenting with Pt c/o Rt sided T10 pain. TECHNIQUE: Multisequence, multiplanar MR imaging of the thoracic spine was performed without the use of intravenous contrast. IV contrast: None. COMPARISON: None. FINDINGS: Localizer images: Diverticulosis of the sigmoid colon. Mild dextroscoliotic curvature of the thoracic spine centered at T9-10. Otherwise normal thoracic kyphosis. Vertebral bodies maintain normal height, alignment, and bone marrow signal intensity. Intervertebral disc heights preserved. Small disc osteophyte complexes noted at T1 to through T3-4 as well as T7-8 and T8-9. No significant resulting in effacement of the thecal sac. No neural foraminal narrowing. Focal abnormal spinal cord signal intensity at the level of T5-6, which extends for a length of 3.2 cm. There is a suspected internal cystic component. The this lesion expands the spinal cord at this level and is intradural, intramedullary. This lesion primarily involves the central and dorsal cord. No additional spinal cord lesion is evident. No epidural collection. Paraspinal musculature normal. Remaining visualized soft tissues normal. IMPRESSION: 1. 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 This is incompletely evaluated without intravenous contrast. Further evaluation with contrast-enhanced MR of the thoracic spine recommended. The appearance favors a a soft tissue mass given its focality and degree of cord expansion. This is favored to represent a glial neoplasm such as an ependymoma given the suspected cystic focus. The report will be called/faxed according to standard departmental protocol. Electronically signed by: Donald Ortiz M.D. 10/23/2017 11:28 AM Dictated Date/Time: 10/23/2017 11:18 AM
--- NOTE | 2017-10-23 13:38 | DIAGNOSTIC IMAGING REPORT ---
MRI OF THE THORACIC SPINE WITH AND WITHOUT CONTRAST CLINICAL HISTORY: Right sided thoracic pain. Abnormal noncontrast MRI. COMPARISON STUDY: MRI of the thoracic spine October 23, 2017 at 10:45 AM. TECHNIQUE: Utilizing a 1.5 Layla magnet and dedicated coil, multiplanar, multi echo imaging of the thoracic spine was performed pre and postcontrast administration. Intravenous injection of 7.5 cc of Gadavist IV was uneventful. FINDINGS: Alignment of the thoracic spine is anatomic. Vertebral body heights are maintained. There is no suspicious marrow replacement. Exam is mildly compromised by motion artifact but no enhancement of the T2 hyperintense focus shown on noncontrast MRI at the T5-T6 level is noted. This focus is better depicted on the T2 sequence from the noncontrast MRI. No abnormal thoracic cord enhancement is present. There is no enhancement within the canal of the thoracic spine. Paravertebral soft tissues are unremarkable. Note is made of mild dilatation of visualized portions of the ascending aorta which measures approximately 4.1 cm. This is suboptimally assessed on this exam. There is no central canal or neural foraminal stenosis. IMPRESSION: 1. No enhancement of the T2 hyperintense focus within the cord at the T5-T6 level. This remains nonspecific. A neoplasm is considered much less likely given the lack of enhancement. However, a follow-up MRI in 3 months to ensure stability is recommended. Differential considerations include demyelination, transverse myelitis or less likely focal cord infarct. In addition, an abnormality such as an arachnoid web or a idiopathic spinal cord herniation are within the differential. 2. Mild dilatation of visualized portions of the ascending aorta, measuring approximately 4.1 cm. Electronically signed by: Heber Lugo M.D. 10/23/2017 1:37 PM Dictated Date/Time: 10/23/2017 1:01 PM
[2017-10-23] MEDS ORDERED: DEXAMETHASONE INJ 10 MG in SYRINGE 0 ML IV STA (13:57)
[2017-10-23] MEDS ORDERED: OXYC-57 PO (14:01)
[2017-10-23] MEDS ORDERED: DEXAMETHASONE SOD INJ 10 MG/ML VIAL ONE (14:04)
[2017-10-23 14:15] VITALS: BP 144/99; PULSE 96; O2SAT 97
== END 2017-10-23 14:16 | disposition home or self-care (01) ==
LOC: C.EDB 08:04 → C.EDA 14:16
DX: M54.9 Dorsalgia, unspecified (principal); I51.7 Cardiomegaly; J98.9 Respiratory disorder, unspecified; F41.9 Anxiety disorder, unspecified; Z79.899 Other long term (current) drug therapy; Z88.8 Allergy status to other drugs, medicaments and biological substances; Z83.3 Family history of diabetes mellitus; Z82.49 Family history of ischemic heart disease and other diseases of the circulatory system

== ENCOUNTER 2017-10-24 12:32 | Inpatient (IN) | payer OTHER ==
[~2017-10-24] VITALS: Ht 167.6 cm; Wt 74.8 kg
[~2017-10-24 12:32] MED LIST changes: -AMIT75TA2 PO; -IBUP1TAB PO; +OXYC-57 PO
[2017-10-24] MEDS ORDERED: HYDROmorphone INJ 2 MG/ML SYR/VIAL IV PRN (13:00)
[2017-10-24] MEDS ORDERED: NIFEdipine 10 MG CAP PO PRN (13:00)
[2017-10-24 13:30] VITALS: PULSE 93; TEMP 36.8; Ht 167.6 cm; Wt 74.8 kg
[2017-10-24 13:50] LABS: HEMOGLOBIN 14.5 g/dL (12.0-16.0); MEAN CELL VOLUME 95.7 fL (80-100); PLATELET COUNT 395 K/uL (130-400); RED CELL DISTRIBUTION WIDTH CV 12.4 % (11.5-14.5); RED CELL DISTRIBUTION WIDTH SD 43.5 fL (36.4-46.3); WHITE BLOOD COUNT 7.09 K/uL (4.8-10.8)
[2017-10-24 13:58] LABS: MEAN CORPUSCULAR HGB CONC 34.5 g/dl (32-36)
[2017-10-24 14:10] LABS: ALBUMIN 4.4 gm/dl (3.4-5.0); CREATININE 0.83 mg/dl (0.60-1.20); POTASSIUM 4.2 mmol/L (3.5-5.1); TOTAL PROTEIN 9.6 gm/dl (6.4-8.2)
[2017-10-24] MEDS: D5W AND LACTATED RINGERS 1,000 ML IV SCH ×2 (14:16→23:43)
[2017-10-24 14:58] VITALS: BP 124/86; PULSE 100; TEMP 36.7; O2SAT 97
--- NOTE | 2017-10-24 16:15 | DIAGNOSTIC IMAGING REPORT ---
CT SCAN OF THE ABDOMEN AND PELVIS WITHOUT IV CONTRAST CLINICAL HISTORY: Left-sided abdominal pain. Rigidity. COMPARISON STUDY: Abdominal CT scans dated 04/06/2017 and 01/25/2017. TECHNIQUE: CT scan of the abdomen and pelvis is performed from the lung bases to the proximal femora. Images are reviewed in the axial, sagittal, and coronal planes. IV contrast was not administered for this examination. Note that the examination was performed in suboptimal fashion without oral and IV contrast. A dose lowering technique was utilized adhering to the principles of ALARA. CT DOSE: 844.19 mGy.cm FINDINGS: Lung bases: The heart is normal in size and without pericardial effusion. There is bibasilar scarring/atelectasis. No airspace consolidation or pleural effusion is seen. A tiny hiatal hernia is noted. Liver: The unenhanced liver is normal in size, contour, and attenuation. There is no intrahepatic biliary ductal dilatation. Gallbladder: Unremarkable. Spleen: Normal in size and attenuation. Pancreas: The unenhanced pancreas appears mildly edematous. There is peripancreatic stranding and trace fluid. The appearance is consistent with acute pancreatitis. No peripancreatic fluid collection is identified. Adrenal glands: Unremarkable. Kidneys: The unenhanced kidneys are normal in size and without hydronephrosis. There are no renal calculi identified. There is no evidence of contour deforming renal mass lesion. Abdominal vasculature: The abdominal aorta is normal in course and caliber noting mild atherosclerotic calcification. Bowel: There is mild colonic diverticulosis without CT evidence of acute diverticulitis. No bowel obstruction is seen. Fecal retention is noted in the right colon. The appendix is well-visualized and normal. Peritoneum: There is no intraperitoneal free air or abdominal ascites. Lymphadenopathy: None. Pelvic viscera: The bladder, uterus, and adnexa are normal as visualized. Skeletal structures: There is advanced disc space narrowing with degenerative endplate sclerosis seen at L5-S1. No lytic or blastic lesions are seen. IMPRESSION: Findings are consistent with acute pancreatitis. Correlation with clinical findings and serum amylase/lipase levels is recommended. Electronically signed by: Yasir Momin M.D. 10/24/2017 4:14 PM Dictated Date/Time: 10/24/2017 4:06 PM
--- NOTE | 2017-10-24 16:29 | DIAGNOSTIC IMAGING REPORT ---
TWO VIEW CHEST CLINICAL HISTORY: Preoperative examination. FINDINGS: PA and lateral chest radiographs are compared to study dated 08/31/2014. The heart is top normal for projection. Linear atelectasis/scarring is noted the left lung base. The lungs and pleural spaces are otherwise clear. There is no pneumothorax. The skeletal structures appear osteopenic. The bony thorax appears intact. IMPRESSION: No active disease in the chest. Electronically signed by: Yaisr Momin M.D. 10/24/2017 4:27 PM Dictated Date/Time: 10/24/2017 4:17 PM
--- NOTE | 2017-10-24 16:48 | HISTORY & PHYSICAL EXAMINATION ---
DATE OF ADMISSION: 10/24/2017 CHIEF COMPLAINT: Abdominal pain. HISTORY OF PRESENT ILLNESS: Anh is 52. She presented to my office with acute abdominal pain earlier this morning. I am guessing around 11:00 this morning; be 11:00 a.m. on the . I felt there was a significant problem more in her abdominal region and the spine. I had her go directly to the Emergency Room and be a direct admission for evaluation, treatment, hydration, and care. PAST MEDICAL HISTORY: Positive for abdominal surgery, alcohol abuse. Admits to depression, liver issues, abdominal issues, hypertension. MEDICATIONS: Include Synthroid, Prinivil, Prilosec. ALLERGIES: TRAMADOL. SOCIAL HISTORY: No history of drug abuse. Single, 3 children. Unemployed. PAST SURGICAL HISTORY: section x3. REVIEW OF SYSTEMS: Denies any blurred vision, double vision, tinnitus, vertigo. Denies any chest pain, palpitations, orthopnea. Does have some nausea. No vomiting. Abdominal pain, some distention. Denies any lower extremity difficulties. OBJECTIVE: VITAL SIGNS: Afebrile, 36.8 temperature, blood pressure 130/80, pulse regular at 88. GENERAL: She is 5 feet 6 inches. She is about 170 pounds. She is alert, oriented. She is miserable. PSYCHIATRIC: Mentation normal. Communicates well. Mood appropriate. HEENT: Normal. Pupils react to light and accommodation. CARDIAC: Normal S1, S2. ABDOMEN: Abdomen is hard, is tender. There is rigidity. It is distended. NEUROLOGIC: Grossly intact. IMPRESSION: Acute abdominal process and rigid abdomen. PLAN: Includes admission to my service. IV hydration and urgent CT scan of the abdomen and pelvis, baseline medication. We are going to do EKG, chest x-ray for potential preop. We will have medicine involved as well and general surgery.
[2017-10-24 16:57] LABS: LIPASE 2559 U/L (73-393)
--- NOTE | 2017-10-24 17:02 | Surgery Consultation ---
Consultation Date of Consultation: Oct 24, 2017. Attending Physician: Eder Rebolledo DO History of Present Illness pt direct admitted by Dr. Rebolledo after seeing her in the office today with severe epigastric/LUQ abdominal pain. no emesis. was seen in the ER this week as well for same pain. CT today shows acute pancreatitis. US done earlier in the week was neg for gallstones. she admits to drinking 4-8 rum/cokes per day " to help with the pain". Past Medical/Surgical History Medical Problems: (1) Acid reflux Status: Chronic (2) Anxiety State Nos Status: Chronic (3) Depressive Disorder Nec Status: Chronic (4) Hypertension Status: Chronic (5) Hypothyroidism Nos Status: Chronic (6) Left low back pain Status: Acute (7) Thoracic back pain Status: Acute Family History Cancer Cancer Diabetes mellitus Diabetes mellitus FH: heart disease FH: heart disease Hypertension Hypertension Social History Smoking Status: Never Smoker Alcohol Use: 4-8 rum/cokes per day Drug Use: none Marital Status: in relationship Housing Status: lives with significant other Occupation Status: unemployed Allergies Coded Allergies: Tramadol (Verified Adverse Reaction, Unknown, NAUSEA, 10/23/17) Home Medications Scheduled Levothyroxine Sodium (Synthroid), Unknown Dose PO QAM Lisinopril (Prinivil), 20 MG PO QAM Omeprazole (Prilosec), 20 MG PO QAM Scheduled PRN Nifedipine (Nifedipine), 10 MG PO DAILY PRN for RAYNAUDS SYMPTOMS Oxycodone/Acetaminophen 5MG/325MG (Percocet 5MG/325MG), 1-2 TAB PO Q4H PRN for Pain Current Inpatient Medications Current Inpatient Medications Medications (Trade) Dose Ordered Sig/Milly Route Start Time Stop Time Status Last Admin Dose Admin Dextrose/Lactated Ringer's 1,000 ml @ 100 mls/hr Q10H IV 10/24/17 13:00 11/23/17 12:59 10/24/17 14:16 100 MLS/HR Lisinopril (Zestril Tab) 20 mg QAM PO 10/25/17 09:00 11/24/17 08:59 Nifedipine (Procardia Cap) 10 mg DAILY PRN PO 10/24/17 13:00 11/23/17 12:59 Pantoprazole Sodium (Protonix Tab) 40 mg QAM PO 10/25/17 09:00 11/24/17 08:59 Hydromorphone HCl (Dilaudid Inj) 2 mg Q4 PRN IV 10/24/17 16:30 11/07/17 16:29 Review of Systems Abdomen: + pain, + nausea Genitourinary - Female: + problem reported ("red urine") Physical Exam Date Time Temp Pulse Resp B/P (MAP) Pulse Ox O2 Delivery O2 Flow Rate FiO2 10/24/17 14:58 36.7 100 18 124/86 (99) 97 Room Air 10/24/17 13:30 36.8 93 17 Room Air General Appearance: + mild distress Head: normocephalic, atraumatic Eyes: EOMI, sclerae normal Neck: supple, trachea midline Respiratory/Chest: no respiratory distress, no accessory muscle use Abdomen/GI: soft, + tenderness, + guarding Neurologic/Psych: alert, oriented x 3 Skin: normal color, warm/dry Laboratory Results Last 24 Hours Test 10/24/17 13:39 White Blood Count 7.09 K/uL Red Blood Count 4.39 M/uL Hemoglobin 14.5 g/dL Hematocrit 42.0 % Mean Corpuscular Volume 95.7 fL Mean Corpuscular Hemoglobin 33.0 pg Mean Corpuscular Hemoglobin Concent 34.5 g/dl RDW Standard Deviation 43.5 fL RDW Coefficient of Variation 12.4 % Platelet Count 395 K/uL Mean Platelet Volume 9.0 fL Sodium Level 133 mmol/L Potassium Level 4.2 mmol/L Chloride Level 101 mmol/L Carbon Dioxide Level 23 mmol/L Anion Gap 10.0 mmol/L Blood Urea Nitrogen 13 mg/dl Creatinine 0.83 mg/dl Est Creatinine Clear Calc Drug Dose 82.0 ml/min Estimated GFR () 94.0 Estimated GFR (Non- 81.1 BUN/Creatinine Ratio 15.8 Random Glucose 92 mg/dl Calcium Level 10.0 mg/dl Total Bilirubin 0.3 mg/dl Aspartate Amino Transf (AST/SGOT) 18 U/L Alanine Aminotransferase (ALT/SGPT) 25 U/L Alkaline Phosphatase 87 U/L Total Protein 9.6 gm/dl Albumin 4.4 gm/dl Globulin 5.2 gm/dl Albumin/Globulin Ratio 0.8 Amylase Level 172 U/L Lipase 2559 U/L Assessment & Plan acute pancreatitis likely secondary to ETOH no signs of withdrawal currently will check amylase /lipase Keep npo/IVF will follow for now but likely will be no need for surgical intervention ( gallbladder US neg for gallstones 2 weeks ago). symptom control
[2017-10-24 17:30] VITALS: O2SAT 97
[2017-10-24] MEDS: HYDROmorphone INJ 2 MG/ML SYR/VIAL IV PRN ×2 (18:07→22:11)
[2017-10-24 23:26] VITALS: BP 116/81; PULSE 79; TEMP 36.7; O2SAT 95
[2017-10-25] MEDS: HYDROmorphone INJ 2 MG/ML SYR/VIAL IV PRN ×4 (02:30→16:03)
--- NOTE | 2017-10-25 06:32 | Surgery Progress Note ---
Surgery Progress Note Date of Service Oct 25, 2017. Subjective + feeling well, + flatus, + pain controlled, + diet (NPO), No complaints, No bowel movement, No nausea, No vomiting Patient reports pain is somewhat improved from yesterday Objective Vital Signs: Date Time Temp Pulse Resp B/P (MAP) Pulse Ox O2 Delivery O2 Flow Rate FiO2 10/24/17 23:35 Room Air 10/24/17 23:26 36.7 79 16 116/81 (93) 95 Room Air 10/24/17 17:30 97 Room Air 10/24/17 14:58 36.7 100 18 124/86 (99) 97 Room Air 10/24/17 13:30 36.8 93 17 Room Air General Appearance: no apparent distress Respiratory/Chest: no respiratory distress Abdomen: non distended, soft, + tenderness (Left sided TTP most prominent in LUQ) Laboratory Results: Results Past 24 Hours Test 10/24/17 13:39 10/25/17 02:35 10/25/17 04:44 Range/Units White Blood Count 7.09 4.8-10.8 K/uL Red Blood Count 4.39 4.2-5.4 M/uL Hemoglobin 14.5 12.0-16.0 g/dL Hematocrit 42.0 37-47 % Mean Corpuscular Volume 95.7 80-100 fL Mean Corpuscular Hemoglobin 33.0 25-34 pg Mean Corpuscular Hemoglobin Concent 34.5 32-36 g/dl RDW Standard Deviation 43.5 36.4-46.3 fL RDW Coefficient of Variation 12.4 11.5-14.5 % Platelet Count 395 130-400 K/uL Mean Platelet Volume 9.0 7.4-10.4 fL Sodium Level 133 136-145 mmol/L Potassium Level 4.2 3.5-5.1 mmol/L Chloride Level 101 98-107 mmol/L Carbon Dioxide Level 23 21-32 mmol/L Anion Gap 10.0 3-11 mmol/L Blood Urea Nitrogen 13 7-18 mg/dl Creatinine 0.83 0.60-1.20 mg/dl Est Creatinine Clear Calc Drug Dose 82.0 ml/min Estimated GFR () 94.0 Estimated GFR (Non- 81.1 BUN/Creatinine Ratio 15.8 10-20 Random Glucose 92 70-99 mg/dl Calcium Level 10.0 8.5-10.1 mg/dl Total Bilirubin 0.3 0.2-1 mg/dl Aspartate Amino Transf (AST/SGOT) 18 15-37 U/L Alanine Aminotransferase (ALT/SGPT) 25 12-78 U/L Alkaline Phosphatase 87 45-117 U/L Total Protein 9.6 6.4-8.2 gm/dl Albumin 4.4 3.4-5.0 gm/dl Globulin 5.2 2.5-4.0 gm/dl Albumin/Globulin Ratio 0.8 0.9-2 Amylase Level 172 25-115 U/L Lipase 2559 73-393 U/L Urine Color YELLOW Urine Appearance ERROR CLEAR Urine pH 5.5 4.5-7.5 Urine Specific [place] 1.021 1.000-1.030 Urine Protein NEG NEG Urine Glucose (UA) NEG NEG Urine Ketones NEG NEG Urine Occult Blood NEG NEG Urine Nitrite NEG NEG Urine Bilirubin NEG NEG Urine Urobilinogen NEG NEG Urine Leukocyte Esterase MODERATE NEG Urine WBC (Auto) 10-30 0-5 /hpf Urine RBC (Auto) 0-4 0-4 /hpf Urine Hyaline Casts (Auto) 1-5 0-5 /lpf Urine Epithelial Cells (Auto) >30 0-5 /lpf Urine Bacteria (Auto) 1+ NEG Assessment & Plan acute pancreatitis Still having pain but controlled. Abdomen soft w/ left sided TTP (improved). +flatus. no N/V. Amylase 172, Lipase 2559. Continue current management. Will continue to follow.
[2017-10-25 07:51] LABS: LIPASE 3230 U/L (73-393)
[2017-10-25] MEDS ORDERED: CIPROFLOXACIN / D5W 400 MG in PREMIXED IN D5W 200 ML IV SCH (09:00)
[2017-10-25] MEDS ORDERED: LISINOPRIL 20 MG TAB PO SCH (09:00)
[2017-10-25] MEDS: PANTOprazole SOD 40 MG TAB PO SCH (09:01)
[2017-10-25] MEDS: D5W AND LACTATED RINGERS 1,000 ML IV SCH (09:05)
[2017-10-25] MEDS: LACTATED RINGER'S 1000ML 1,000 ML IV SCH ×3 (10:35→21:51)
[2017-10-25 15:15] VITALS: O2SAT 97
[2017-10-25 15:29] VITALS: BP 161/112; PULSE 84; TEMP 36.5; O2SAT 97
[2017-10-25] MEDS ORDERED: ONDANSETRON INJ 8 MG in DEXTROSE 5% 50ML 50 ML IV PRN (17:15)
[2017-10-25] MEDS ORDERED: NALOXONE HCL 0.4 MG/1 ML VIAL/CARP IV PRN (17:30)
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
[2017-10-25] MEDS: SODIUM CHLORIDE 0.9% 1000ML 1,000 ML IV SCH (18:00)
[2017-10-25] MEDS ORDERED: LORAZEPAM INJ 1 MG in SYRINGE 0.5 ML IV PRN (19:00)
[2017-10-25] MEDS ORDERED: LORAZEPAM 2 MG/ML 1 ML VIAL IV PRN (19:00)
[2017-10-25 19:15] VITALS: BP 151/98; PULSE 81; TEMP 36.7; O2SAT 97
[2017-10-25] MEDS: HYDROmorphone HCL 0.5MG/ML 50 ML CASSETTE IV PRN ×2 (19:30→23:04)
[2017-10-25 20:21] LABS: HEMATOCRIT 37.6 % (37-47); HEMOGLOBIN 12.3 g/dL (12.0-16.0); MEAN CELL VOLUME 98.9 fL (80-100); MEAN CORPUSCULAR HEMOGLOBIN 32.4 pg (25-34); MEAN CORPUSCULAR HGB CONC 32.7 g/dl (32-36); PLATELET COUNT 286 K/uL (130-400); RED CELL DISTRIBUTION WIDTH CV 12.5 % (11.5-14.5); RED CELL DISTRIBUTION WIDTH SD 45.2 fL (36.4-46.3); WHITE BLOOD COUNT 6.83 K/uL (4.8-10.8)
[2017-10-25 20:29] LABS: INR 0.9 (0.9-1.1)
[2017-10-25 20:38] LABS: CREATININE 0.61 mg/dl (0.60-1.20)
[2017-10-25 21:11] VITALS: BP 167/95; PULSE 67; TEMP 36.6; O2SAT 99
[2017-10-25 21:55] VITALS: BP 152/95; PULSE 84; TEMP 36.5; O2SAT 92
[2017-10-25] MEDS ORDERED: NURSING VERBAL MED ORDER ONE (22:45)
[2017-10-25 23:07] VITALS: BP 169/104; PULSE 83; TEMP 36.6; O2SAT 95
[2017-10-26] VITALS (9 sets, daily range): BP systolic 108–167; BP diastolic 67–114; PULSE 76–102; TEMP 36.4–36.8; O2SAT 94–99
[2017-10-26] MEDS: LACTATED RINGER'S 1000ML 1,000 ML IV SCH ×4 (02:41→17:50)
[2017-10-26] MEDS: HYDROmorphone HCL 0.5MG/ML 50 ML CASSETTE IV PRN ×3 (07:13→22:48)
--- NOTE | 2017-10-26 07:44 | Surgery Progress Note ---
Surgery Progress Note Date of Service Oct 26, 2017. Subjective + feeling well, + complaints (reports some increased pain overnight but feeling better this AM), + ambulating, + flatus, + pain controlled, + diet (NPO), No bowel movement, No nausea, No vomiting Patient reports she has been urinating more. Objective Vital Signs: Date Time Temp Pulse Resp B/P (MAP) Pulse Ox O2 Delivery O2 Flow Rate FiO2 10/26/17 03:25 36.8 81 16 167/106 (126) 98 Room Air 151/94 (113) 10/26/17 00:30 Room Air 10/25/17 23:07 36.6 83 16 169/104 (125) 95 Room Air 10/25/17 21:55 36.5 84 16 152/95 (114) 92 Room Air 10/25/17 21:11 36.6 67 167/95 (119) 99 Room Air 10/25/17 19:15 36.7 81 16 151/98 (115) 97 Room Air 10/25/17 15:29 36.5 84 16 161/112 (128) 97 Room Air 10/25/17 15:15 97 Room Air 10/25/17 09:00 Room Air General Appearance: no apparent distress Head: atraumatic Respiratory/Chest: no respiratory distress Abdomen: soft, + tenderness (left sided - improved) Laboratory Results: Results Past 24 Hours Test 10/25/17 20:08 10/26/17 07:30 Range/Units White Blood Count 6.83 4.8-10.8 K/uL Red Blood Count 3.80 4.2-5.4 M/uL Hemoglobin 12.3 12.0-16.0 g/dL Hematocrit 37.6 37-47 % Mean Corpuscular Volume 98.9 80-100 fL Mean Corpuscular Hemoglobin 32.4 25-34 pg Mean Corpuscular Hemoglobin Concent 32.7 32-36 g/dl RDW Standard Deviation 45.2 36.4-46.3 fL RDW Coefficient of Variation 12.5 11.5-14.5 % Platelet Count 286 130-400 K/uL Mean Platelet Volume 9.0 7.4-10.4 fL Prothrombin Time 9.8 9.0-12.0 SECONDS Prothromb Time International Ratio 0.9 0.9-1.1 Creatinine 0.61 0.60-1.20 mg/dl Est Creatinine Clear Calc Drug Dose 111.5 ml/min Estimated GFR () 120.8 Estimated GFR (Non- 104.2 Assessment & Plan 10/26/17 acute pancreatitis Still having pain but improved. no N/V. Amylase 281, Lipase 3230. AM labs pending. No surgical issues. Continue current conservative management. Surgery signing off. Please contact with questions or concerns. as above. starting to feel a little better AM labs pending no surgical issues at this time. will sign off/call if needed. acute pancreatitis Still having pain but controlled. Abdomen soft w/ left sided TTP (improved). +flatus. no N/V. Amylase 172, Lipase 2559. Continue current management. Will continue to follow.
[2017-10-26] MEDS: PANTOprazole SOD 40 MG TAB PO SCH (07:51)
[2017-10-26 08:18] LABS: CALCIUM 9.3 mg/dl (8.5-10.1); CREATININE 0.68 mg/dl (0.60-1.20); POTASSIUM 3.8 mmol/L (3.5-5.1)
[2017-10-26] MEDS: ENOXAPARIN 40 MG/0.4 ML SYR SQ SCH (08:48)
[2017-10-26 09:07] LABS: BASO % 0.4 %; BASO ABS # 0.02 K/uL (0-0.2); EOS % 2.9 %; EOS ABS # 0.16 K/uL (0-0.5); HEMATOCRIT 41.3 % (37-47); HEMOGLOBIN 13.5 g/dL (12.0-16.0); IG# 0.01 K/uL (0.00-0.02); LYMPH % 25.6 %; MEAN CELL VOLUME 98.6 fL (80-100); MEAN CORPUSCULAR HEMOGLOBIN 32.2 pg (25-34); MEAN CORPUSCULAR HGB CONC 32.7 g/dl (32-36); MEAN PLATELET VOLUME 10.8 fL (7.4-10.4); MONO % 8.6 %; MONO ABS # 0.47 K/uL (0.11-0.59); NEUT % 62.3 %; NEUT ABS # 3.41 K/uL (1.4-6.5); PLATELET COUNT 161 K/uL (130-400); RED CELL DISTRIBUTION WIDTH CV 12.5 % (11.5-14.5); WHITE BLOOD COUNT 5.47 K/uL (4.8-10.8)
--- NOTE | 2017-10-26 09:30 | ORTHOPEDICS PROGRESS NOTE ---
DATE: 10/24/2017 SUBJECTIVE: She is improving. She is alert and oriented, still n.p.o., still left upper quadrant pain, fullness. OBJECTIVE: 36.5 temperature, pulse regular, blood pressure elevated. White count 5, hemoglobin 13.5. Amylase elevated on the , down on the . Lipase trending downward as well. ASSESSMENT: Acute pancreatitis. PLAN: She is under the care of the medical team and the surgical team including discharge. I will see her as she is under my name in the hospital over the next several days. Hopefully, discharge home within 3-4 days.
[2017-10-26] MEDS: HydrALAZINE HCL 20 MG/ML VIAL IV. PRN (12:34)
[2017-10-26] MEDS ORDERED: LISINOPRIL 20 MG TAB PO ONE (13:12)
[2017-10-26] MEDS ORDERED: DEXTROSE 50% 50 ML SYR IV PRN (13:15)
[2017-10-26] MEDS ORDERED: THIAMINE HCL 100 MG/ML 2 ML VIAL IV ONE (15:33)
[2017-10-26] MEDS ORDERED: FoLIC ACID INJ 1 MG in SYRINGE 9.8 ML IV ONE (15:33)
--- NOTE | 2017-10-26 15:41 | Family Medicine Progress Note ---
Progress Note Date of Service Oct 26, 2017. Subjective Pt evaluation today including: conversation w/ patient, physical exam, chart review, lab review, review of studies, review of inpatient medication list Pain: 8/10 LLQ, wrapping and penetrating to back PO Intake: NPO + Meds Voiding: no voiding problems Feels better today. Reports her pain is a little better, 8/10 today but less when she stands. INVERTED BLOCK OPERATOR pump is helping, feels it is working well. Laying down is still uncomfortable. No BM yet, last 5 days ago. Urinating OK, reports no burning when she pees and the color is much substance abuse specialist. No blood. Mild headache this morning which resolved. No questions at this time. Denies shortness of breath, fever, chills. Still no appetite. Denies tremors, shaking, sweats, signs of etoh withdrawal. Constitutional: + fatigue, No fever, No chills, No weakness Respiratory: No cough, No shortness of breath Cardiovascular: No chest pain Abdomen: + pain, + constipation, No nausea, No vomiting, No diarrhea Female : + urinary frequency, No dysuria Neurologic: No weakness Skin: No rash, No new/changing skin lesions Medications Current Inpatient Medications Medications (Trade) Dose Ordered Sig/Milly Route Start Time Stop Time Status Last Admin Dose Admin Nifedipine (Procardia Cap) 10 mg DAILY PRN PO 10/24/17 13:00 11/23/17 12:59 Pantoprazole Sodium (Protonix Tab) 40 mg QAM PO 10/25/17 09:00 11/24/17 08:59 10/26/17 07:51 40 MG Hydromorphone HCl (Dilaudid Inj) 2 mg Q4 PRN IV 10/24/17 16:30 11/07/17 16:29 Future Hold 10/25/17 16:03 2 MG Lactated Ringer's 1,000 ml @ 125 mls/hr Q8H IV 10/25/17 10:15 11/24/17 10:14 10/26/17 12:23 200 MLS/HR Ondansetron HCl 8 mg/Dextrose 54 ml @ 200 mls/hr Q6H PRN IV 10/25/17 17:15 11/24/17 17:14 Naloxone HCl (Narcan Inj) 0.1 mg Q5M PRN IV 10/25/17 17:30 11/24/17 17:29 Hydromorphone HCl (Dilaudid Grid Trimmer) 25 mg PRN PRN IV 10/25/17 17:30 11/08/17 17:29 10/26/17 07:13 25 MG Sodium Chloride 1,000 ml @ 15 mls/hr Q24H IV 10/25/17 18:00 11/24/17 17:59 Lorazepam (Ativan Inj) 1 mg ONE PRN IV 10/25/17 19:00 Lorazepam 1 mg/ Syringe 1 ml @ 1 mls/min ONE PRN IV 10/25/17 19:00 Enoxaparin Sodium (Lovenox Inj) 40 mg QAM SQ 10/26/17 09:00 11/25/17 08:59 10/26/17 08:48 40 MG Hydralazine HCl (HydrALAZINE INJ) 10 mg Q6H PRN IV. 10/25/17 23:00 11/24/17 22:59 10/26/17 12:34 10 MG Dextrose (Dextrose 50% 50ML Syringe) 25-50ML 25ML FOR ... UD PRN IV 10/26/17 13:15 11/25/17 13:14 Lisinopril (Zestril Tab) 20 mg QAM PO 10/27/17 09:00 11/26/17 08:59 Thiamine HCl (Vitamin B-1 Inj) 100 mg NOW STAT IV 10/26/17 15:19 10/26/17 15:20 UNV Thiamine HCl 100 mg/Syringe 10 ml @ 2 mls/min QAM IV 10/27/17 09:00 11/26/17 08:59 UNV Folic Acid 1 mg/ Syringe 10 ml @ 5 mls/min QAM IV 10/27/17 09:00 11/26/17 08:59 UNV Folic Acid 1 mg/ Syringe 10 ml @ 5 mls/min 1519 ONCE IV 10/26/17 15:19 10/26/17 15:20 UNV Objective Vital Signs Date Time Temp Pulse Resp B/P (MAP) Pulse Ox O2 Delivery O2 Flow Rate FiO2 10/26/17 15:12 36.7 89 18 146/97 (113) 99 Room Air 10/26/17 13:41 152/88 (109) 10/26/17 11:45 36.5 88 16 167/108 (127) 97 Room Air 10/26/17 09:19 98 Room Air 10/26/17 07:54 36.5 76 15 166/114 (131) 98 Room Air 10/26/17 07:45 Room Air 10/26/17 03:25 36.8 81 16 167/106 (126) 98 Room Air 151/94 (113) 10/26/17 00:30 Room Air 10/25/17 23:07 36.6 83 16 169/104 (125) 95 Room Air 10/25/17 21:55 36.5 84 16 152/95 (114) 92 Room Air 10/25/17 21:11 36.6 67 167/95 (119) 99 Room Air 10/25/17 19:15 36.7 81 16 151/98 (115) 97 Room Air Physical Exam General Appearance: WD/WN, + mild distress, + pertinent finding (in mild-mod discomfort laying in bed) Eyes: normal inspection ENT: hearing grossly normal Neck: supple, trachea midline Respiratory/Chest: chest non-tender, lungs clear, normal breath sounds, no respiratory distress, no accessory muscle use Cardiovascular: regular rate, rhythm, no edema, no gallop, no murmur Abdomen: normal bowel sounds, + distended, + guarding, + tenderness Extremities: normal range of motion, non-tender, normal capillary refill Neurologic/Psychiatric: alert, normal mood/affect, oriented x 3 Skin: normal color, warm/dry, no rash Laboratory Results 10/26/17 07:30 Red Blood Count 4.19, Mean Corpuscular Volume 98.6, Mean Corpuscular Hemoglobin 32.2, Mean Corpuscular Hemoglobin Concent 32.7, Mean Platelet Volume 10.8, Neutrophils (%) (Auto) 62.3, Lymphocytes (%) (Auto) 25.6, Monocytes (%) (Auto) 8.6, Eosinophils (%) (Auto) 2.9, Basophils (%) (Auto) 0.4, Neutrophils # (Auto) 3.41, Lymphocytes # (Auto) 1.40, Monocytes # (Auto) 0.47, Eosinophils # (Auto) 0.16, Basophils # (Auto) 0.02 10/26/17 07:30 Test 10/25/17 20:08 8/24/18 07:30 10/26/17 12:18 Prothrombin Time 9.8 SECONDS (9.0-12.0) Prothromb Time International Ratio 0.9 (0.9-1.1) White Blood Count 5.47 K/uL (4.8-10.8) Red Blood Count 4.19 M/uL (4.2-5.4) Hemoglobin 13.5 g/dL (12.0-16.0) Hematocrit 41.3 % (37-47) Mean Corpuscular Volume 98.6 fL (80-100) Mean Corpuscular Hemoglobin 32.2 pg (25-34) Mean Corpuscular Hemoglobin Concent 32.7 g/dl (32-36) Platelet Count 161 K/uL (130-400) Mean Platelet Volume 10.8 fL (7.4-10.4) Neutrophils (%) (Auto) 62.3 % Lymphocytes (%) (Auto) 25.6 % Monocytes (%) (Auto) 8.6 % Eosinophils (%) (Auto) 2.9 % Basophils (%) (Auto) 0.4 % Neutrophils # (Auto) 3.41 K/uL (1.4-6.5) Lymphocytes # (Auto) 1.40 K/uL (1.2-3.4) Monocytes # (Auto) 0.47 K/uL (0.11-0.59) Eosinophils # (Auto) 0.16 K/uL (0-0.5) Basophils # (Auto) 0.02 K/uL (0-0.2) RDW Standard Deviation 45.0 fL (36.4-46.3) RDW Coefficient of Variation 12.5 % (11.5-14.5) Immature Granulocyte % (Auto) 0.2 % Immature Granulocyte # (Auto) 0.01 K/uL (0.00-0.02) Anion Gap 10.0 mmol/L (3-11) Est Creatinine Clear Calc Drug Dose 100.0 ml/min Estimated GFR () 116.6 Estimated GFR (Non- 100.6 BUN/Creatinine Ratio 12.2 (10-20) Calcium Level 9.3 mg/dl (8.5-10.1) Amylase Level 94 U/L (25-115) Lipase 678 U/L (73-393) Bedside Glucose 65 mg/dl (70-90) Assessment and Plan Anh Clouser is a 52yo F who presents as a direct admit with severe LLQ abdominal pain worsened with meals admitted for acute pancreatitis likely on a background of chronic pancreatitis Acute Pancreatitis - CT-Ab/P shows signs of acute pancreatitis. Gallbladder normal without stones , although noncon study - NPO + Meds. May advance to clears tonight if she looks clinically well. - Maintenance IVFM 250mL/hr Lactated Ringers - Pain control with hydromorphone INVERTED BLOCK OPERATOR .25mg Q15M - BMP daily - No hx of T2DM. Hypoglycemic today, added D5IV PRN EtOH Abuse - 1 year hx of 1/2 fifth per day liquor intake and regular drinker prior to that - At risk for withdrawal, although reports her last drink was Sunday (almost 5 days ago) which would put her outside the window to show acute symptoms/DTs - AWSS protocol for at risk of withdrawal to be conservative at this time - +Thiamine, +Folate UA w/ Positive Leukocyte Esterase - No clinical signs of UTI - Discontinued Cipro - Will continue to monitor Recent Tx for C. 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 Discussed with Dr. Dobson and agree with findings and plan as documented in the note. Any exceptions or clarifications are listed here: None Documented By: Simon Peña pain improving but still fairly bad. does think clears would sit well. no KENNETH molina noted standing because she notes that helps the pain abdomen bloated and tender no rigidity acute pancreatitis - fluids, pain control, trial of clears chronic abdominal pain - ?chronic pancreatitis vs PUD vs biliary vs constipation related vs other or combination of all - will need ongoing f/u as outpt given current acute situation will make chronic situation more difficult to discern right now EtOH abuse - thiamine, folate, withdrawal protocol (although right now doing well hip pain - resolved otherwise as above Continued [facility] stay due to: inadequate po fluid intake, inadequate oral pain control Resident Tracking Resident Involvement: Resident Care Provided Care Provided: Adult Hospital Medicine
[2017-10-26] MEDS ORDERED: THIAMINE HCL INJ 100 MG in SYRINGE 9 ML IV ONE (16:00)
[2017-10-26] MEDS: RASPBERRY SYRUP 5 ML UDP PO SCH ×2 (16:26→21:15)
[2017-10-26] MEDS: VANCOMYCIN HCL 125 MG/2.5ML SOLN PO SCH ×2 (16:27→21:15)
[2017-10-26] MEDS: SODIUM CHLORIDE 0.9% 1000ML 1,000 ML IV SCH (17:50)
[2017-10-26] MEDS ORDERED: VANCOMYCIN HCL 125 MG/2.5ML SOLN PO SCH (18:00)
[2017-10-27] VITALS (7 sets, daily range): BP systolic 131–174; BP diastolic 90–112; PULSE 80–94; TEMP 36.6–36.7; O2SAT 94–99
[2017-10-27] MEDS: LACTATED RINGER'S 1000ML 1,000 ML IV SCH ×4 (01:14→23:48)
[2017-10-27] MEDS: RASPBERRY SYRUP 5 ML UDP PO SCH ×4 (03:47→21:13)
[2017-10-27] MEDS: VANCOMYCIN HCL 125 MG/2.5ML SOLN PO SCH ×4 (03:47→21:13)
[2017-10-27] MEDS: HYDROmorphone HCL 0.5MG/ML 50 ML CASSETTE IV PRN (06:59)
[2017-10-27] MEDS: PANTOprazole SOD 40 MG TAB PO SCH (08:33)
[2017-10-27] MEDS: LISINOPRIL 20 MG TAB PO SCH (08:34)
[2017-10-27] MEDS: FoLIC ACID INJ 1 MG in SYRINGE 9.8 ML IV SCH (08:35)
[2017-10-27] MEDS: THIAMINE HCL INJ 100 MG in SYRINGE 9 ML IV SCH (08:35)
[2017-10-27] MEDS: ENOXAPARIN 40 MG/0.4 ML SYR SQ SCH (08:36)
[2017-10-27 08:40] LABS: CALCIUM 9.4 mg/dl (8.5-10.1); CREATININE 0.69 mg/dl (0.60-1.20)
[2017-10-27] MEDS: HydrALAZINE HCL 20 MG/ML VIAL IV. PRN (15:23)
[2017-10-27] MEDS: HYDROmorphone INJ 1 MG/ML SYR IV PRN ×3 (15:23→23:48)
--- NOTE | 2017-10-27 16:22 | Family Medicine Progress Note ---
Progress Note Date of Service Oct 27, 2017. Subjective Pt evaluation today including: conversation w/ patient, conversation w/ family , physical exam, chart review, lab review, review of studies, review of inpatient medication list Pain: LUQ pain present but improving, made better with pain medications PO Intake: Able to tolerate clear liquids overnight without nausea or worsening pain Voiding: no voiding problems Anh states that her pain has improved today and that she was able to tolerate clear liquids. She still complains of LUQ burning abdominal pain. Anh states that this pain is similar to chronic abdominal pain. She denies feeling shaky or having hallucinations. Constitutional: No fever, No chills ENT: No sore throat Respiratory: No cough, No shortness of breath Cardiovascular: No chest pain Abdomen: + pain, No nausea, No vomiting Female : No dysuria Psychiatric: No anxiety All Other Systems: Reviewed and Negative Medications Current Inpatient Medications Medications (Trade) Dose Ordered Sig/Milly Route Start Time Stop Time Status Last Admin Dose Admin Nifedipine (Procardia Cap) 10 mg DAILY PRN PO 10/24/17 13:00 11/23/17 12:59 Pantoprazole Sodium (Protonix Tab) 40 mg QAM PO 10/25/17 09:00 11/24/17 08:59 10/27/17 08:33 40 MG Hydromorphone HCl (Dilaudid Inj) 2 mg Q4 PRN IV 10/24/17 16:30 11/07/17 16:29 Future Hold 10/25/17 16:03 2 MG Lactated Ringer's 1,000 ml @ 125 mls/hr Q8H IV 10/25/17 10:15 11/24/17 10:14 10/27/17 09:45 125 MLS/HR Ondansetron HCl 8 mg/Dextrose 54 ml @ 200 mls/hr Q6H PRN IV 10/25/17 17:15 11/24/17 17:14 Lorazepam (Ativan Inj) 1 mg ONE PRN IV 10/25/17 19:00 Lorazepam 1 mg/ Syringe 1 ml @ 1 mls/min ONE PRN IV 10/25/17 19:00 Enoxaparin Sodium (Lovenox Inj) 40 mg QAM SQ 10/26/17 09:00 11/25/17 08:59 10/27/17 08:36 40 MG Hydralazine HCl (HydrALAZINE INJ) 10 mg Q6H PRN IV. 10/25/17 23:00 11/24/17 22:59 10/27/17 15:23 10 MG Dextrose (Dextrose 50% 50ML Syringe) 25-50ML 25ML FOR ... UD PRN IV 10/26/17 13:15 11/25/17 13:14 Lisinopril (Zestril Tab) 20 mg QAM PO 10/27/17 09:00 11/26/17 08:59 10/27/17 08:34 20 MG Thiamine HCl 100 mg/Syringe 10 ml @ 2 mls/min QAM IV 10/27/17 09:00 11/26/17 08:59 10/27/17 08:35 2 MLS/MIN Folic Acid 1 mg/ Syringe 10 ml @ 5 mls/min QAM IV 10/27/17 09:00 11/26/17 08:59 10/27/17 08:35 5 MLS/MIN Vancomycin HCl (Vancomycin Oral Soln) 125 mg Q6H PO 10/26/17 16:00 10/28/17 15:59 10/27/17 15:23 125 MG Raspberry (Raspberry Syrup 5ml Cup) 5 ml Q6H PO 10/26/17 16:00 10/28/17 15:59 10/27/17 15:23 5 ML Hydromorphone HCl (Dilaudid Inj) 1 mg Q4 PRN IV 10/27/17 14:15 11/10/17 14:14 10/27/17 15:23 1 MG Diclofenac Sodium (Voltaren 1% Top Gel) 1 appln QID EXT 10/27/17 17:00 11/26/17 16:59 UNV Objective Vital Signs Date Time Temp Pulse Resp B/P (MAP) Pulse Ox O2 Delivery O2 Flow Rate FiO2 10/27/17 15:28 36.6 80 12 170/104 (126) 99 Room Air 174/108 (130) 10/27/17 15:10 Room Air 10/27/17 12:24 131/91 (104) 10/27/17 11:45 36.6 82 18 150/102 (118) 96 Room Air 149/104 (119) 10/27/17 08:07 36.7 80 16 134/98 (110) 96 Room Air 10/27/17 08:05 Room Air 10/27/17 03:46 36.7 88 16 144/91 (108) 94 Room Air 10/26/17 23:51 Room Air 10/26/17 23:43 36.6 88 16 166/110 (128) 95 Room Air 10/26/17 19:14 36.4 92 18 144/102 (116) 98 Room Air Physical Exam General Appearance: WD/WN, + pertinent finding (appears more comfortable than subjective pain) Eyes: normal inspection, EOMI, sclerae normal ENT: normal ENT inspection Neck: supple, trachea midline Respiratory/Chest: lungs clear, normal breath sounds, no respiratory distress Cardiovascular: regular rate, rhythm, no edema, no gallop, no murmur Abdomen: normal bowel sounds, + pertinent finding (mild LUQ tenderness with no rebound.) Neurologic/Psychiatric: alert, normal mood/affect, oriented x 3 Skin: normal color, warm/dry, no rash Notes: Soft tissue tenderness over posterior rib area of 8-12 on the left side. Osteopathic findings: Ribs 8-12 on the left side have an Exhalation dysfunction/ Inhalation restriction. Articulatory technique was applied to rib area to assist with dysfuction; Balanced Ligamentous tension was applied to rib heads. Laboratory Results 10/27/17 07:54 Test 10/27/17 07:54 Anion Gap 8.0 mmol/L (3-11) Est Creatinine Clear Calc Drug Dose 98.6 ml/min Estimated GFR () 116.0 Estimated GFR (Non- 100.1 BUN/Creatinine Ratio 11.3 (10-20) Calcium Level 9.4 mg/dl (8.5-10.1) Assessment and Plan - Acute Pancreatitis * Pain is improving and patient is tolerating clear liquids. * Dilaudid MULTI OPERATION MACHINE OPERATOR is discontinued. * Dilaudid 1mg q4PRN for pain ordered. * Diet advanced to full liquids today with plan to advance to low fat diet tomorrow. * Ordered pancreatic enzymes with meals. * Continue Lactated Ringers Maintenance fluids - Chronic abdominal pain * vs chronic pancreatitis vs PUD, vs biliary, vs constipation, vs musculoskeletal * Considering GI consult for inpatient vs outpatient EGD - Exhalation dysfunction/Inhalation restriction of left ribs 8-12 * Treated with OMT at bedside * Ordered Voltaren gel 1% QID to affected area * Will continue with more OMT during admission - ETOH abuse * No signs of withdrawal/DTs - UA with positive Leuk esterase * Poor sample with many epithelial cells; patient with no urinary complaints. No need to treat. - Recent C-diff infection * Probiotic and Vancomycin PO. - Hypothyroid * Levothyroxine 112mcg - GERD * Protonix 40mg qAM - HTN * Lisinopril - Reynaud's * Nifedipine 10mg PO PRN Resident Physician Supervision Note: I interviewed and examined the patient. Discussed with Dr. Vail and agree with findings and plan as documented in the note. Any exceptions or clarifications are listed here: None Documented By: Simon Peña ongoing pain - seems to be getting better than before. somewhat difficult historian in regards to pain. stomach L side and around to back. on very directed questioning this seems to be the pain she's been suffering with for a long time - just more intense right now than before, but less intense than it was over the last few days. no modification of the pain with eating either way. just there/the same vitals noted fatigued appearing nad mild abdominal distention ost - L sided lower ribs ~8-10 inhalation dysfunction high tone/tender/ ddecreased ROM, corresponding high tone/tender/decreased ROM to thoracic paraspinals on the L as well - respiratory assist - improved some although quite poor cooperation from patient. balanced ligamentous tension and direct myofascial - improved some. acute pancreatitis - improving. reduce pain meds, advance diet. chronic abdominal pain - likely multifactorial: -suspect chronic pancreatitis - due to EtOH intake. trial of pancreatic enzyme supplements, ongoing management -question of PUD - will d/w GI ?EGD while admitted vs in near future as outpt - continue protonix -rib and thoracic somatic dysfunction - probably accounts for the lateral itching type sensation as well. OMT as above, voltaren gel -?referred pain from chronic constipation - once acute pancreatitis has resolved will work on bowel regimen -?element of GB dysfunction (least likely since pain is epigastric and left, not right, but GB disease so common will pay attention clinically if anything develops DVT proph - lovenox EtOH abuse - no withdrawal, explained to pt that self medicating for chronic pancreatitis with EtOH is ironically making the actual disease she is trying to treat the pain for worse, so she will get transient relief when she is drunk, only to feel worse once she is sober. continue thiamine and folate otherwise as above
[2017-10-27] MEDS: DICLOFENAC SOD 1% GEL 100 GM TUBE EXT SCH ×2 (16:36→21:13)
[2017-10-27] MEDS: PANCREAZE (LIPASE 4,200U) CAP PO SCH (17:20)
[2017-10-28] VITALS (7 sets, daily range): BP systolic 138–151; BP diastolic 78–104; PULSE 86–96; TEMP 36.6–37.1; O2SAT 94–98
[2017-10-28] MEDS: RASPBERRY SYRUP 5 ML UDP PO SCH ×2 (03:20→10:39)
[2017-10-28] MEDS: VANCOMYCIN HCL 125 MG/2.5ML SOLN PO SCH ×2 (03:21→10:39)
[2017-10-28] MEDS: HYDROmorphone INJ 1 MG/ML SYR IV PRN ×4 (04:51→21:06)
[2017-10-28 05:45] LABS: HEMOGLOBIN 14.1 g/dL (12.0-16.0); MEAN CELL VOLUME 95.1 fL (80-100); MEAN CORPUSCULAR HEMOGLOBIN 32.7 pg (25-34); MEAN CORPUSCULAR HGB CONC 34.4 g/dl (32-36); MEAN PLATELET VOLUME 10.8 fL (7.4-10.4); PLATELET COUNT 187 K/uL (130-400); RED CELL DISTRIBUTION WIDTH CV 12.1 % (11.5-14.5); RED CELL DISTRIBUTION WIDTH SD 42.4 fL (36.4-46.3); WHITE BLOOD COUNT 6.45 K/uL (4.8-10.8)
[2017-10-28 06:03] LABS: CALCIUM 8.9 mg/dl (8.5-10.1); CREATININE 0.66 mg/dl (0.60-1.20)
[2017-10-28] MEDS: LACTATED RINGER'S 1000ML 1,000 ML IV SCH ×3 (07:35→23:29)
[2017-10-28] MEDS: PANCREAZE (LIPASE 4,200U) CAP PO SCH ×3 (07:35→16:36)
[2017-10-28] MEDS: PANTOprazole SOD 40 MG TAB PO SCH (08:47)
[2017-10-28] MEDS: LISINOPRIL 20 MG TAB PO SCH (08:48)
[2017-10-28] MEDS: ENOXAPARIN 40 MG/0.4 ML SYR SQ SCH (08:49)
[2017-10-28] MEDS: DICLOFENAC SOD 1% GEL 100 GM TUBE EXT SCH ×4 (08:50→21:07)
[2017-10-28] MEDS: FoLIC ACID INJ 1 MG in SYRINGE 9.8 ML IV SCH (08:51)
[2017-10-28] MEDS: THIAMINE HCL INJ 100 MG in SYRINGE 9 ML IV SCH (08:52)
--- NOTE | 2017-10-28 09:28 | Family Medicine Progress Note ---
Progress Note Date of Service Oct 28, 2017. Subjective Pt evaluation today including: conversation w/ patient, physical exam, chart review, lab review, review of inpatient medication list Pain: LUQ pain 7/10; improved with pain medication PO Intake: Handled full liquid without increasing pain, nausea, or vomiting Voiding: no voiding problems Anh states she is still having LUQ abdominal pain that is improving (now a 7/ 10 as compared to 8/10 yesterday). She states pain medication improves pain and helps her sleep. She is on a full liquid diet and had no difficulties handling liquids. She states her appetite is returning but was only able to take a couple bites. She did not have any increasing pain, nausea, or vomiting. She complains of constipation and states her last BM was 10 days ago. Anh states she is passing gas. Constitutional: No fever, No chills Respiratory: No cough, No shortness of breath Cardiovascular: No chest pain Abdomen: + pain, + constipation, No nausea, No vomiting, No diarrhea Musculoskeletal: No calf pain Psychiatric: No anxiety, No insomnia Skin: No rash All Other Systems: Reviewed and Negative Medications Current Inpatient Medications Medications (Trade) Dose Ordered Sig/Milly Route Start Time Stop Time Status Last Admin Dose Admin Nifedipine (Procardia Cap) 10 mg DAILY PRN PO 10/24/17 13:00 11/23/17 12:59 Pantoprazole Sodium (Protonix Tab) 40 mg QAM PO 10/25/17 09:00 11/24/17 08:59 10/28/17 08:47 40 MG Hydromorphone HCl (Dilaudid Inj) 2 mg Q4 PRN IV 10/24/17 16:30 11/07/17 16:29 Future Hold 10/25/17 16:03 2 MG Lactated Ringer's 1,000 ml @ 125 mls/hr Q8H IV 10/25/17 10:15 11/24/17 10:14 10/28/17 07:35 125 MLS/HR Ondansetron HCl 8 mg/Dextrose 54 ml @ 200 mls/hr Q6H PRN IV 10/25/17 17:15 11/24/17 17:14 Lorazepam (Ativan Inj) 1 mg ONE PRN IV 10/25/17 19:00 Lorazepam 1 mg/ Syringe 1 ml @ 1 mls/min ONE PRN IV 10/25/17 19:00 Enoxaparin Sodium (Lovenox Inj) 40 mg QAM SQ 10/26/17 09:00 11/25/17 08:59 10/28/17 08:49 40 MG Hydralazine HCl (HydrALAZINE INJ) 10 mg Q6H PRN IV. 10/25/17 23:00 11/24/17 22:59 10/27/17 15:23 10 MG Dextrose (Dextrose 50% 50ML Syringe) 25-50ML 25ML FOR ... UD PRN IV 10/26/17 13:15 11/25/17 13:14 Lisinopril (Zestril Tab) 20 mg QAM PO 10/27/17 09:00 11/26/17 08:59 10/28/17 08:48 20 MG Thiamine HCl 100 mg/Syringe 10 ml @ 2 mls/min QAM IV 10/27/17 09:00 11/26/17 08:59 10/28/17 08:52 2 MLS/MIN Folic Acid 1 mg/ Syringe 10 ml @ 5 mls/min QAM IV 10/27/17 09:00 11/26/17 08:59 10/28/17 08:51 5 MLS/MIN Vancomycin HCl (Vancomycin Oral Soln) 125 mg Q6H PO 10/26/17 16:00 10/28/17 15:59 10/28/17 03:21 125 MG Raspberry (Raspberry Syrup 5ml Cup) 5 ml Q6H PO 10/26/17 16:00 10/28/17 15:59 10/28/17 03:20 5 ML Hydromorphone HCl (Dilaudid Inj) 1 mg Q4 PRN IV 10/27/17 14:15 11/10/17 14:14 10/28/17 09:09 1 MG Diclofenac Sodium (Voltaren 1% Top Gel) 1 appln QID EXT 10/27/17 17:00 11/26/17 16:59 10/28/17 08:50 1 APPLN Amylase/Lipase/ Protease (Pancreaze (Lipase 4,200U) Cap) 1 cap AC PO 10/27/17 17:15 11/26/17 17:14 10/28/17 07:35 1 CAP Objective Vital Signs Date Time Temp Pulse Resp B/P (MAP) Pulse Ox O2 Delivery O2 Flow Rate FiO2 10/28/17 07:21 36.7 86 15 138/78 (98) 94 Room Air 10/28/17 07:15 Room Air 10/28/17 03:45 36.6 96 18 149/104 (119) 94 Room Air 10/27/17 23:10 36.6 91 18 158/105 (122) 99 Room Air 156/112 (127) 10/27/17 23:10 Room Air 10/27/17 16:53 36.6 94 14 136/90 (105) 98 Room Air 10/27/17 15:28 36.6 80 12 170/104 (126) 99 Room Air 174/108 (130) 10/27/17 15:10 Room Air 10/27/17 12:24 131/91 (104) 10/27/17 11:45 36.6 82 18 150/102 (118) 96 Room Air 149/104 (119) Physical Exam General Appearance: WD/WN, + pertinent finding (sleeping but easily arousable; appears more comfortable than stated pain) Eyes: EOMI, sclerae normal Neck: trachea midline Respiratory/Chest: lungs clear, normal breath sounds, no respiratory distress, no accessory muscle use Cardiovascular: regular rate, rhythm, no edema, no gallop, no murmur Abdomen: normal bowel sounds, + tenderness (mild LUQ tenderness with no rebound or guarding), + pertinent finding (bowel sounds are very active in all quadrants) Extremities: no pedal edema, no calf tenderness Neurologic/Psychiatric: alert, normal mood/affect, oriented x 3 Skin: normal color, warm/dry, no rash Notes: Bucket handle rib movement of left ribs 8-10 improved with expansion during inhalation which was restricted yesterday; I appreciated more caliper motion of ribs 11-12 on the left today as well. Laboratory Results 10/28/17 05:07 10/28/17 05:07 10/28/17 06:14 Test 10/28/17 05:07 Red Blood Count 4.31 M/uL (4.2-5.4) Mean Corpuscular Volume 95.1 fL (80-100) Mean Corpuscular Hemoglobin 32.7 pg (25-34) Mean Corpuscular Hemoglobin Concent 34.4 g/dl (32-36) RDW Standard Deviation 42.4 fL (36.4-46.3) RDW Coefficient of Variation 12.1 % (11.5-14.5) Mean Platelet Volume 10.8 fL (7.4-10.4) Anion Gap 10.0 mmol/L (3-11) Est Creatinine Clear Calc Drug Dose 103.1 ml/min Estimated GFR () 117.7 Estimated GFR (Non- 101.6 BUN/Creatinine Ratio 9.0 (10-20) Calcium Level 8.9 mg/dl (8.5-10.1) Assessment and Plan - Acute Pancreatitis * Pain is improving and patient is tolerating full liquids. Advanced patient's diet to low fat. * Dilaudid [employer] was discontinued yesterday and was placed on Dilaudid 1mg q4h PRN overnight. Today, Dilaudid 1mg was changed to q8h PRN. As disease process is resolving, patient's need for pain medication will decrease and we are de- escalating patient's pain medications. This was discussed with patient as she has a substance abuse background which comes with complications of weaning away from narcotic medications. She appears more comfortable every day. * Current pain management includes: Dilaudid 1mg q8PRN for pain. * Pancreatic enzymes with meals. * Continue Lactated Ringers Maintenance fluids - Chronic abdominal pain * vs chronic pancreatitis vs PUD, vs biliary, vs constipation, vs musculoskeletal * Considering GI consult for inpatient vs outpatient EGD * Added Miralax BID for complaints of constipation with patient reporting no BM in 10 days. Bowel sounds were very active on exam. - Exhalation dysfunction/Inhalation restriction of left ribs 8-12 * Resolving * Treated with articulatory OMT at bedside this morning * Voltaren gel 1% QID to affected area * Will continue with more OMT during admission as patient tolerates - ETOH abuse * No signs of withdrawal/DTs and with time after last drink, do not expect to have any issues since last drink was outside the typical timeframe for symptoms to present - UA with positive Leuk esterase * Poor sample with many epithelial cells; patient with no urinary complaints. No need to treat. - Recent C-diff infection * Probiotic and Vancomycin PO. - Hypothyroid * Levothyroxine 112mcg - GERD * Protonix 40mg qAM - HTN * Lisinopril - Reynaud's * Nifedipine 10mg PO PRN Resident Physician Supervision Note: I interviewed and examined the patient. Discussed with Dr. Vail and agree with findings and plan as documented in the note. Any exceptions or clarifications are listed here: None Documented By: Simon Peña tolerating food ok, L sided itching somewhat improved and rib pain seems somewhat better no other new problems, worries about pain after discharge vitals noted fatigued appearing nad mild abdominal distention acute pancreatitis - improving. reduce pain meds, advance diet to low fat, reduce pain meds chronic abdominal pain - likely multifactorial: -suspect chronic pancreatitis - due to EtOH intake. trial of pancreatic enzyme supplements, ongoing management -question of PUD - protonix, consult GI for probable EGD -rib and thoracic somatic dysfunction - probably accounts for the lateral itching type sensation as well. OMT yesterday with surprisingly lasting improvement thus far in rib ROM, voltaren gel -?referred pain from chronic constipation - once acute pancreatitis has resolved will work on bowel regimen -?element of GB dysfunction (least likely since pain is epigastric and left, not right, but GB disease so common will pay attention clinically if anything develops ---d/w pt frankly about the difficulties with her pain control in the face of EtOH abuse/possible addiction -- that we need to try to help keep her thinking about treating root cause rather than simply covering the pain, but that this will be quite difficult for her with the addictive mindset of wanting something fixed and fixed right now. (did not overtly say no actual pain meds at discharge, but tried to lay a solid foundation that the mainstay of treating this will be to treat the underlying diagnoses rather than simply covering the pain, and did say that it may take some time to truly affect improving, and that this would probably be somewhat difficult for her) DVT proph - lovenox EtOH abuse - no withdrawal, explained previously to pt that self medicating for chronic pancreatitis with EtOH is ironically making the actual disease she is trying to treat the pain for worse, so she will get transient relief when she is drunk, only to feel worse once she is sober. continue thiamine and folate otherwise as above
[2017-10-28] MEDS: POLYETHYLENE (MIRALAX) 17 GM PACK PO SCH (21:07)
[2017-10-29] MEDS ORDERED: NURSING VERBAL MED ORDER ONE (02:00)
[2017-10-29] MEDS ORDERED: ZOLPIDEM TARTRATE 5 MG TAB PO ONE (02:15)
[2017-10-29] MEDS: HYDROmorphone INJ 1 MG/ML SYR IV PRN (05:20)
[2017-10-29 06:57] LABS: CALCIUM 8.3 mg/dl (8.5-10.1); CREATININE 0.66 mg/dl (0.60-1.20); POTASSIUM 3.7 mmol/L (3.5-5.1)
[2017-10-29 07:30] VITALS: BP 150/110; PULSE 88; TEMP 37.2; O2SAT 97
[2017-10-29] MEDS: LACTATED RINGER'S 1000ML 1,000 ML IV SCH (07:39)
[2017-10-29 07:40] VITALS: BP 142/88
[2017-10-29] MEDS: PANCREAZE (LIPASE 4,200U) CAP PO SCH ×2 (07:45→12:13)
[2017-10-29] MEDS: POLYETHYLENE (MIRALAX) 17 GM PACK PO SCH (09:00)
[2017-10-29] MEDS: THIAMINE HCL INJ 100 MG in SYRINGE 9 ML IV SCH (09:53)
[2017-10-29] MEDS: FoLIC ACID INJ 1 MG in SYRINGE 9.8 ML IV SCH (09:54)
[2017-10-29] MEDS: LISINOPRIL 20 MG TAB PO SCH (09:54)
[2017-10-29] MEDS: PANTOprazole SOD 40 MG TAB PO SCH (09:54)
[2017-10-29] MEDS: DICLOFENAC SOD 1% GEL 100 GM TUBE EXT SCH ×2 (09:55→13:00)
[2017-10-29 09:57] VITALS: O2SAT 97
[2017-10-29] MEDS ORDERED: HYDROmorphone INJ 1 MG/ML SYR IV PRN (11:15)
[2017-10-29 11:45] VITALS: BP 168/100; PULSE 92; TEMP 37.1; O2SAT 100
[2017-10-29] MEDS ORDERED: FENTANYL CITRATE INJ 50 MCG/1 ML 2 ML VIAL ONE (13:50)
[2017-10-29] MEDS ORDERED: PROPOFOL IV EMULSION 10 MG/ML 20 ML VIAL ONE (13:50)
[2017-10-29] MEDS ORDERED: LIDOCAINE HCL 2% 2 ML VIAL (20MG/ML) ONE (13:50)
--- NOTE | 2017-10-29 14:04 | Endo History and Physical ---
History & Physical Date of Service: Oct 29, 2017. Chief Complaint: Epig pain Referring Physician: Dr Garcia History of Present Illness For EGD Past Medical History Arthritis, Gastrointestinal Disorder, Anxiety, Thyroid Disease, Kidney Disease, Depression Past Surgical History Hx Cardiac Surgery: No Hx Internal Defibrillator: No Hx Pacemaker: No Hx Abdominal Surgery: Yes ( X3) Hx Post-Op Nausea and Vomiting: No Hx Cancer Surgery: No Hx Thoracic Surgery: No Hx Orthopedic: No Hx Urinary Tract Surgery: No Social History Smoking Status: Never Smoker Hx Substance Use: No Hx Alcohol Use: Yes (3-6 DRINKS RUM OR WINE/DAY) Allergies Coded Allergies: Tramadol (Verified Adverse Reaction, Unknown, NAUSEA, 10/23/17) Current Medications Reported Home Medications Medications Dose Route/Sig Max Daily Dose Days Date Category Percocet 5MG/325MG (Oxycodone/Acetaminophen) Tab 1-2 Tab PO Q4H PRN 10/23/17 Rx Synthroid (Levothyroxine Sodium) 112 Mcg Tab Unknown Dose PO QAM 04/10/17 Reported Prinivil (Lisinopril) 20 Mg Tab 20 Mg PO QAM 01/21/17 Reported Prilosec (Omeprazole) 20 Mg Cap 20 Mg PO QAM 03/08/14 Reported Nifedipine 10 Mg Cap 10 Mg PO DAILY PRN 03/08/14 Reported Vital Signs Weight (Kilograms): 74.800 Height (Feet): 5 Height (Inches): 6.00 Date Time Temp Pulse Resp B/P (MAP) Pulse Ox O2 Delivery O2 Flow Rate FiO2 10/29/17 13:37 159/115 (130) 10/29/17 13:30 163/115 (131) 10/29/17 13:27 167/126 (140) 10/29/17 13:25 37.0 104 18 164/121 (135) 98 Room Air 104 10/29/17 11:45 37.1 92 18 168/100 (122) 100 Room Air 10/29/17 09:57 97 Room Air 10/29/17 07:40 Room Air 10/29/17 07:40 142/88 (106) 10/29/17 07:30 37.2 88 16 150/110 (123) 97 Room Air 10/28/17 23:40 98 Room Air 10/28/17 23:00 36.8 95 16 144/98 (113) 98 Room Air 10/28/17 19:02 36.8 91 16 151/97 (115) 96 Room Air 10/28/17 15:22 37.1 90 17 145/98 (114) 98 Room Air 10/28/17 15:15 Room Air Physical Exam General Appearance: + obese Respiratory/Chest: Respiratory effort: no dyspnea Cardiovascular: Heart Auscultation: RRR Abdomen: Inspection & Palpation: pertinent finding (epig tenderness) Assessment and Plan Epig pain for EGD
--- NOTE | 2017-10-29 14:20 | Discharge Instructions ---
Endoscopy Patient Instructions Date / Procedure(s) Performed Oct 29, 2017. EGD Allergy Information Coded Allergies: Tramadol (Verified Adverse Reaction, Unknown, NAUSEA, 10/23/17) Discharge Date / Findings Oct 29, 2017. Normal EGD Medication Instructions Restart Stopped Medication(s): Resume meds Current Inpatient Medications Medications (Trade) Dose Ordered Sig/Milly Route Start Time Stop Time Status Last Admin Dose Admin Nifedipine (Procardia Cap) 10 mg DAILY PRN PO 10/24/17 13:00 11/23/17 12:59 Pantoprazole Sodium (Protonix Tab) 40 mg QAM PO 10/25/17 09:00 11/24/17 08:59 10/29/17 09:54 40 MG Hydromorphone HCl (Dilaudid Inj) 2 mg Q4 PRN IV 10/24/17 16:30 11/07/17 16:29 Future Hold 10/25/17 16:03 2 MG Lactated Ringer's 1,000 ml @ 125 mls/hr Q8H IV 10/25/17 10:15 11/24/17 10:14 10/29/17 07:39 125 MLS/HR Ondansetron HCl 8 mg/Dextrose 54 ml @ 200 mls/hr Q6H PRN IV 10/25/17 17:15 11/24/17 17:14 Lorazepam (Ativan Inj) 1 mg ONE PRN IV 10/25/17 19:00 Lorazepam 1 mg/ Syringe 1 ml @ 1 mls/min ONE PRN IV 10/25/17 19:00 Enoxaparin Sodium (Lovenox Inj) 40 mg QAM SQ 10/26/17 09:00 11/25/17 08:59 10/28/17 08:49 40 MG Hydralazine HCl (HydrALAZINE INJ) 10 mg Q6H PRN IV. 10/25/17 23:00 11/24/17 22:59 10/27/17 15:23 10 MG Dextrose (Dextrose 50% 50ML Syringe) 25-50ML 25ML FOR ... UD PRN IV 10/26/17 13:15 11/25/17 13:14 Lisinopril (Zestril Tab) 20 mg QAM PO 10/27/17 09:00 11/26/17 08:59 8/27/18 09:54 20 MG Thiamine HCl 100 mg/Syringe 10 ml @ 2 mls/min QAM IV 10/27/17 09:00 11/26/17 08:59 10/29/17 09:53 2 MLS/MIN Folic Acid 1 mg/ Syringe 10 ml @ 5 mls/min QAM IV 10/27/17 09:00 11/26/17 08:59 10/29/17 09:54 5 MLS/MIN Diclofenac Sodium (Voltaren 1% Top Gel) 1 appln QID EXT 10/27/17 17:00 11/26/17 16:59 10/29/17 09:55 1 APPLN Amylase/Lipase/ Protease (Pancreaze (Lipase 4,200U) Cap) 1 cap AC PO 10/27/17 17:15 11/26/17 17:14 10/29/17 12:13 1 CAP Polyethylene (Miralax Powder Packet) 17 gm BID PO 10/28/17 21:00 11/27/17 20:59 10/28/17 21:07 17 GM Hydromorphone HCl (Dilaudid Inj) 0.5 mg Q8 PRN IV 10/29/17 11:15 11/10/17 14:14 Provider Instructions Activity Restrictions - No exercising or heavy lifting for 24 hours. - Do not drink alcohol the day of the procedure. - Do not drive a car or operate machinery until the day after the procedure. - Do not make any important decisions or sign important papers in 24 hours after the procedure. Following Day: - Return to full activity which may include returning to work/school. Diet Start your diet with liquids and light foods (jello, soup, juice, toast). Then eat your usual diet if not nauseated. Treatment For Common After Affects For mild abdominal pain, bloating, or excessive gas: - Rest - Eat lightly - Lie on right side Follow-Up Information Follow-up with as scheduled Anesthesia Information What You Should Know You have had a procedure that required some medicine to reduce anxiety and discomfort. This treatment is called moderate sedation. After receiving the treatment, you may be sleepy, but you will be able to breathe on your own. The effects of the treatment may last for several hours. Follow these instructions along with Activity/Diet recommendations noted above: * Do NOT do anything where dizziness or clumsiness would be dangerous. * Rest quietly at home today, then you can be up and about tomorrow. * Have a responsible person stay with you the rest of today. * You may have had an I.V. today. If so, you may take the dressing off later today. Recommendations Call your doctor if: * Trouble breathing * Continuous vomiting for more than 24 hours * Temperature above 101 degrees * Severe abdominal pain or bloating * Pain not relieved by pain medicine ordered * There is increased drainage or redness from any incision * A large amount of rectal bleeding greater than 2-3 tablespoons. (If you had a polyp/s removed or have hemorrhoids, a small amount of blood - from the rectum is to be expected.) * You have any unanswered questions or concerns. IN THE EVENT OF A SERIOUS EMERGENCY, GO TO THE NEAREST EMERGENCY ROOM Your discharge instructions were prepared by provider Alfredito Carmichael. Patient Instructions Signature Page Anh Toribio Patient (or Guardian) Signature/Date: I have read and understand the instructions given to me by my caregivers. Caregiver/RN/Doctor Signature/Date: The above-named patient and/or guardian has received patient instructions on this date. + Original Patient Signature Page (only) stays with chart. Please make copy for patient.
--- NOTE | 2017-10-29 14:48 | Anesthesiology Progress Note ---
Anesthesia Post Op Note Date & Time Oct 29, 2017 at 14:48 Vital Signs Vital Signs Past 12 Hours Date Time Temp Pulse Resp B/P (MAP) Pulse Ox O2 Delivery O2 Flow Rate FiO2 10/29/17 14:40 95 18 143/105 (118) 96 Room Air 10/29/17 14:25 37.0 104 18 128/87 (101) 96 Room Air 90 10/29/17 13:37 159/115 (130) 10/29/17 13:30 163/115 (131) 10/29/17 13:27 167/126 (140) 10/29/17 13:25 37.0 104 18 164/121 (135) 98 Room Air 104 10/29/17 11:45 37.1 92 18 168/100 (122) 100 Room Air 10/29/17 09:57 97 Room Air 10/29/17 07:40 Room Air 10/29/17 07:40 142/88 (106) 10/29/17 07:30 37.2 88 16 150/110 (123) 97 Room Air Notes Mental Status: alert / awake / arousable, participated in evaluation Pt Amnestic to Procedure: Yes Nausea / Vomiting: adequately controlled Pain: adequately controlled Airway Patency, RR, SpO2: stable & adequate BP & HR: stable & adequate Hydration State: stable & adequate Anesthetic Complications: no major complications apparent
--- NOTE | 2017-10-29 14:51 | GASTROINTESTINAL CONSULTATION ---
DATE OF CONSULTATION: 10/29/2017 REASON FOR CONSULTATION: Acute pancreatitis with epigastric pain. HISTORY OF PRESENT ILLNESS: The patient is a 52-year-old with a history of alcohol use who presented to the hospital on 10/24/2017 with abdominal pain, particularly in the epigastric area that began around 11 o'clock that morning. She presented to the Emergency Room and had a CT scan that showed evidence of acute pancreatitis with an elevation in her lipase over 1999. Her liver tests were normal, and there were no gallstones seen on her imaging studies. Despite her amylase and lipase improving, she continues to complain of epigastric pain, and GI consultation was obtained. PAST MEDICAL HISTORY: Remarkable for alcohol, depression, hypertension, hypothyroidism. MEDICATIONS: Synthroid, Prinivil, and Prilosec. FAMILY HISTORY: TRAMADOL. SOCIAL HISTORY: The patient is single, has 3 children. She is unemployed. History of alcohol use. PAST SURGICAL HISTORY: Remarkable for 3 C-sections. PHYSICAL EXAMINATION: GENERAL: Patient appears in pain but in no acute distress. VITAL SIGNS: Blood pressure is 135/100. GASTROINTESTINAL: Abdomen shows scars. There is tenderness in the epigastric area. An EGD was performed into the third portion of duodenum and was normal. IMPRESSION: The patient has acute pancreatitis with epigastric pain, most likely from her pancreatitis. Her EGD is normal. RECOMMENDATIONS: I recommend that the patient continue to be treated with modest pain medications and advance to a low fat diet as tolerated. We will continue to follow the patient during her hospital stay.
[2017-10-29] MEDS ORDERED: NAPR-1231 PO (16:36)
[2017-10-29 16:39] VITALS: BP 160/105; PULSE 88; TEMP 37; O2SAT 98
--- NOTE | 2017-10-29 16:49 | Discharge Summary ---
Discharge Summary Date of Service Oct 29, 2017. Discharge Summary Admission Date: Oct 24, 2017 at 12:48 Discharge Date: Oct 29, 2017 Discharge Disposition: Home Principal Diagnosis: Acute Pancreatitis Problems/Secondary Diagnoses: (1) Acid reflux Status: Chronic (2) Anxiety State Nos Status: Chronic (3) Depressive Disorder Nec Status: Chronic (4) Hypertension Status: Chronic (5) Hypothyroidism Nos Status: Chronic Procedures: EGD Consultations: Dr. Carmichael Medication Reconciliation New Medications: Naproxen (Naproxen) 500 Mg Tab 1 TAB PO BID for 30 Days, #60 TAB 0 Refills Take one 500 mg tablet twice a day for pain. Continued Medications: Levothyroxine Sodium (Synthroid) 112 Mcg Tab Unknown Dose PO QAM Lisinopril (Prinivil) 20 Mg Tab 20 MG PO QAM Nifedipine (Nifedipine) 10 Mg Cap 10 MG PO DAILY PRN for RAYNAUDS SYMPTOMS Omeprazole (Prilosec) 20 Mg Cap 20 MG PO QAM Discontinued Medications: Oxycodone/Acetaminophen 5MG/325MG (Percocet 5MG/325MG) Tab 1-2 TAB PO Q4H PRN for Pain, #14 TAB Discharge Exam Review of Systems: Constitutional: No fever, No chills Respiratory: No wheezing, No shortness of breath Cardiovascular: No chest pain, No palpitations Abdomen: + pain (LUQ), No nausea, No vomiting, No diarrhea Musculoskeletal: No joint pain, No muscle pain, No calf pain Genitourinary - Female: No dysuria, No hematuria Integumentary: No rash, No itch, No new/changing skin lesions Physical Exam: General Appearance: WD/WN, no apparent distress Eyes: normal inspection, EOMI ENT: normal ENT inspection Respiratory/Chest: lungs clear, normal breath sounds, no respiratory distress Cardiovascular: regular rate, rhythm, no gallop, no murmur Abdomen / GI: normal bowel sounds, soft, + tenderness (LUQ) Extremities: normal inspection, no calf tenderness Neurologic/Psychiatric: normal mood/affect, oriented x 3 Skin: normal color, warm/dry, no rash Hospital Course 52 y/o F with PMH Hypothyroidism, Reynauds, GERD, HTN, chronic ETOH abuse who presented at [facility] as direct admit from PCP for concern of pancreatitis. CT-Ab/P was consistent with pancreatitis and serum lipase was elevated over 1999, she was admitted for management of acute pancreatitis secondary to alcohol use. Her liver tests were normal, and there were no gallstones seen on her imaging studies. During hospital stay, kept on IVF and given dilaudid for pain control. Despite her amylase and lipase improvment, she continued to complain of epigastric pain , and GI consultation was obtained. An EGD was performed into the third portion of duodenum and was normal. She was sent home on naproxen 500 mg bid. Also, discussed maintaining low fat diet. Refrain from alcohol use. Will f/u with PCP tomorrow. Total Time Spent: Greater than 30 minutes This includes examination of the patient, discharge planning, medication reconciliation, and communication with other providers. Discharge Instructions Please refer to the electronic Patient Visit Report (Discharge Instructions) for additional information. Follow-Up With PCP tomorrow. Additional Copies To Donald Dobson IV, M.D.; Uzma Garcia PA-C Resident Tracking Resident Involvement: Resident Care Provided Care Provided: Adult Hospital Medicine Reviewed: Pt Seen/Exam by Me History no new concerns Constitutional: denies: fever Respiratory: negative: short of breath Cardiovascular: denies chest pain General Appearance: no apparent distress Respiratory: lungs clear, no respiratory distress Cardiovascular: regular rate, rhythm Gastrointestinal: normal bowel sounds, non tender, soft Neurologic/Psychiatric: alert, oriented x 3 Skin Characteristics: warm/dry Assessment/Plan Resident Physician Supervision Note: I independently interviewed and examined the patient and verified the osman history and physical, reviewed labs and image studies, discussed the case with the resident Dr. Red and agree with the findings and care plan. Time spent in discharge 35 min
== END 2017-10-29 17:07 | disposition home or self-care (01) | DRG 440 ==
LOC: C.MSN 12:48
PROVIDERS: ADMIT Orthopaedic Surgery Orthopaedic Surgery of the Spine; ATTEND Family Medicine
DX: K85.90 Acute pancreatitis without necrosis or infection, unspecified (principal); F10.10 Alcohol abuse, uncomplicated; F32.9 Major depressive disorder, single episode, unspecified; I10 Essential (primary) hypertension; E03.9 Hypothyroidism, unspecified; K21.9 Gastro-esophageal reflux disease without esophagitis; Z83.3 Family history of diabetes mellitus; Z82.49 Family history of ischemic heart disease and other diseases of the circulatory system; Z88.6 Allergy status to analgesic agent

== ENCOUNTER 2018-10-30 13:00 | Inpatient (IN) ==
[2018-10-30] MEDS ORDERED: LORazepam 2 MG/4 ML VIAL IV STA ×2 (13:34→16:03)
[2018-10-30] MEDS ORDERED: ONDANSETRON INJ 2 MG/ML 2 ML VIAL IV STA (13:34)
[2018-10-30] MEDS ORDERED: HYDROmorphone INJ 0.5 MG/0.5 ML SYR IV STA (13:34)
[2018-10-30] MEDS ORDERED: MULTI-VITAMIN INFUSION 10 ML, THIAMINE HCL 100 MG, FOLIC ACID 1 MG in SODIUM CHLORIDE 0... IV SCH (13:45)
[2018-10-30] MEDS: SODIUM CHLORIDE 0.9% 1000ML 1,000 ML IV SCH ×3 (13:56→19:35)
[2018-10-30 14:01] LABS: Basophils # (auto) 0.02 K/uL (0-0.2); Basophils % (auto) 0.7 %; Eosinophils # (auto) 0.04 K/uL (0-0.5); Eosinophils % (auto) 1.4 %; Hematocrit (blood only) 39.9 % (37-47); Hemoglobin 13.7 g/dL (12.0-16.0); Lymphocytes % (auto) 16.9 %; Mean Corpuscular Hemoglobin 34.1 pg (25-34); Mean Corpuscular Hgb Conc 34.3 g/dL (32-36); Mean Corpuscular Volume 99.3 fL (80-100); Mean Platelet Volume 10.5 fL (7.4-10.4); Monocytes # (auto) 0.38 K/uL (0.11-0.59); Monocytes % (auto) 12.8 %; Neutrophils # (auto) 2.02 K/uL (1.4-6.5); Neutrophils % (auto) 68.2 %; Platelet Count 193 K/uL (130-400); RDW Standard Deviation 50.1 fL (36.4-46.3); Red Blood Count 4.02 M/uL (4.2-5.4); White Blood Count 2.96 K/uL (4.8-10.8)
[2018-10-30 14:18] LABS: Albumin Level 3.4 gm/dl (3.4-5.0); BUN Creatinine Ratio 6.1 (10-20); Calcium 9.4 mg/dl (8.5-10.1); Creatinine Clr Calc Pharmacy 72.5 ml/min; Est GFR (Non-African American) 79.3; Potassium 3.5 mmol/L (3.5-5.1)
[2018-10-30 14:21] LABS: Albumin Globulin Ratio 0.7 (0.9-2); Bilirubin,Total 2.7 mg/dl (0.2-1); Globulin 4.7 gm/dl (2.5-4.0); Total Protein 8.1 gm/dl (6.4-8.2)
[2018-10-30] MEDS ORDERED: IOVERSOL 100ml IV PRN (14:36)
--- NOTE | 2018-10-30 14:51 | CT Scan Report ---
CT abd pelvis IV con only CLINICAL HISTORY: 53 years-old Female presenting with pancreatitis, ETOH, liver lesion, left-sided pa in. TECHNIQUE: Multidetector CT of the abdomen and pelvis was performed after the administration of intra venous contrast. IV contrast: 94 mL of Optiray 320. One or more dose lowering techniques were used co nsistent with the principles of ALARA (as low as reasonably achievable), including automatic exposure control, mA or kV adjustment to individual patient size, and/or use of iterative reconstruction. COMPARISON: 05/15/2018. CT DOSE (mGy.cm): The estimated cumulative dose is 317.68 mGy.cm. 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 Lung bases: Normal heart size. No pericardial or pleural effusion. Minimal dependent changes likely a telectasis. Liver: Normal morphology. Density consistent with severe hepatic steatosis. No focal lesion. Patent h epatic vasculature. Biliary: No intrahepatic or extrahepatic biliary ductal dilatation. Normal gallbladder. Pancreas: Normal. Spleen: Normal. Adrenal glands: Normal. Kidneys and ureters: Normal. No hydronephrosis. Bladder: Incompletely evaluated secondary to underdistention. Pelvic organs: Uterus and ovaries normal. Bowel: Diverticulosis of the sigmoid colon without wall thickening or pericolonic inflammatory change . The appendix is normal. No bowel obstruction. Peritoneal cavity: No free fluid or intraperitoneal gas. Trace infiltration of the root of the small bowel mesentery suggesting mesenteric panniculitis. This is unchanged from prior. Lymph nodes: No enlarged lymph nodes in the abdomen or pelvis. Vasculature: Atherosclerosis of the normal caliber abdominal aorta. IVC patent. Abdominal wall: Normal. Musculoskeletal: Degenerative changes of the spine. Prior sacral insufficiency fracture is healed and not easily perceptible. IMPRESSION: 1. Severe hepatic steatosis, which represents significant worsening from prior. Correlate with liver function tests to exclude steatohepatitis as a cause for abdominal pain. 2. Diverticulosis coli. No evidence of diverticulitis. Electronically signed by: Donald Ortiz M.D. 10/30/2018 2:50 PM
[2018-10-30 15:09] LABS: INR 1.1 (0.9-1.1); Prothrombin Time 11.5 Seconds (9.0-12.0)
[2018-10-30 16:15] LABS: Appearance Urine Clear (Clear); Bilirubin Urine Negative (Negative); Blood Urine Negative (Negative); Color Urine Yellow; Glucose Urine UA Negative (Negative); Ketones Urine Negative (Negative); Leukocyte Esterase Urine Negative (Negative); Nitrite Urine Negative (Negative); Protein Urine Negative (Negative); Specific Gravity Urine > 1.045 (1.000-1.030); Urobilinogen Urine Positive (Negative)
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
[2018-10-30] MEDS ORDERED: LORazepam 1 MG/2 ML VIAL IV PRN (19:04)
[2018-10-30] MEDS ORDERED: ONDANSETRON INJ 2 MG/ML 2 ML VIAL IV PRN (19:04)
[2018-10-30] MEDS: HYDROmorphone INJ 0.5 MG/0.5 ML SYR IV PRN ×2 (19:36→23:39)
[2018-10-30] MEDS: POLYETHYLENE (MIRALAX) 17 GM PACK PO SCH (19:36)
[2018-10-30 21:11] LABS: Folate (Folic Acid) 22.17 ng/ml (>5.38)
[2018-10-30] MEDS: ENOXAPARIN INJ 40 MG/0.4 ML SYR SQ SCH (21:23)
[2018-10-30] MEDS: DOCUSATE SODIUM/SENNA 50/8.6MG TAB PO SCH (21:23)
[2018-10-30] MEDS: PANTOprazole 40 MG TAB PO SCH (21:55)
[2018-10-31] MEDS: HYDROmorphone INJ 0.5 MG/0.5 ML SYR IV PRN ×4 (03:31→20:22)
[2018-10-31] MEDS: LORazepam 1 MG TAB PO PRN ×4 (03:34→23:59)
[2018-10-31] MEDS: SODIUM CHLORIDE 0.9% 1000ML 1,000 ML IV SCH ×2 (03:35→15:10)
[2018-10-31 07:54] LABS: Hematocrit (blood only) 33.2 % (37-47); Hemoglobin 11.1 g/dL (12.0-16.0); Mean Corpuscular Hemoglobin 33.9 pg (25-34); Mean Corpuscular Hgb Conc 33.4 g/dL (32-36); Mean Corpuscular Volume 101.5 fL (80-100); Mean Platelet Volume 9.7 fL (7.4-10.4); Platelet Count 177 K/uL (130-400); RDW Coefficient of Variation 14.4 % (11.5-14.5); RDW Standard Deviation 53.6 fL (36.4-46.3); Red Blood Count 3.27 M/uL (4.2-5.4)
[2018-10-31 08:23] LABS: Albumin Level 2.8 gm/dl (3.4-5.0); BUN Creatinine Ratio 10.4 (10-20); Calcium 8.1 mg/dl (8.5-10.1); Creatinine Clr Calc Pharmacy 98.2 ml/min; Est GFR (African American) 119.3; Est GFR (Non-African American) 102.9; Magnesium 1.8 mg/dl (1.8-2.4); Potassium 3.4 mmol/L (3.5-5.1)
[2018-10-31 08:31] LABS: Albumin Globulin Ratio 0.8 (0.9-2); Bilirubin,Total 1.4 mg/dl (0.2-1); Globulin 3.5 gm/dl (2.5-4.0); Total Protein 6.3 gm/dl (6.4-8.2)
--- NOTE | 2018-10-31 08:56 | Ultrasound Report ---
US gallbladder HISTORY: 53 years-old Female Tbili elevated acutely elevated bilirubin COMPARISON: CT abdomen and pelvis 10/30/2018 TECHNIQUE: Multiple real-time sonographic images of the abdominal right upper quadrant were obtained assessing grayscale appearance and color flow FINDINGS: Visualized pancreas is unremarkable. Hepatic steatosis without evidence of cirrhosis, intrahepatic bi liary ductal dilation or focal hepatic mass lesion. Mild hepatomegaly. Normal common bile duct, 4 mm. Gallbladder is within normal limits without wall thickening, cholelithiasis or pericholecystic fluid . Negative sonographic Muir's sign. The imaged right kidney is unremarkable without hydronephrosis. IMPRESSION: 1. Hepatic steatosis with mild hepatomegaly. 2. Unremarkable sonographic appearance of the gallbladder. 3. No biliary ductal dilation. The above report was generated using voice recognition software. It may contain grammatical, syntax o r spelling errors. Electronically signed by: Charlie Bryant M.D. 10/31/2018 8:55 AM
[2018-10-31] MEDS ORDERED: GABAPENTIN 300 MG CAP PO SCH (09:00)
[2018-10-31] MEDS ORDERED: MULTI-VITAMIN INFUSION 10 ML, THIAMINE HCL 100 MG, FOLIC ACID 1 MG in SODIUM CHLORIDE 0... IV SCH (09:00)
[2018-10-31] MEDS: CYANOCOBALAMIN 500 MCG TABLET (VITAMIN B-12) PO SCH (09:18)
[2018-10-31] MEDS: THIAMINE HCL 100 MG TAB PO SCH (09:18)
[2018-10-31] MEDS: DOCUSATE SODIUM/SENNA 50/8.6MG TAB PO SCH ×2 (09:18→20:28)
[2018-10-31] MEDS: LEVOTHYROXINE SODIUM 112 MCG TABLET PO SCH (09:18)
[2018-10-31] MEDS: FOLIC ACID 1 MG TAB PO SCH (09:18)
[2018-10-31] MEDS: LISINOPRIL 20 MG TAB PO SCH (09:19)
[2018-10-31] MEDS: PANTOprazole 40 MG TAB PO SCH ×2 (09:19→20:28)
[2018-10-31] MEDS: POLYETHYLENE (MIRALAX) 17 GM PACK PO SCH ×2 (09:23→20:27)
[2018-10-31] MEDS ORDERED: POTASSIUM CHLORIDE 20 MEQ TABCR PO ONE (11:32)
--- NOTE | 2018-10-31 13:35 | Hospitalist Progress Note ---
Date of Service October 31, 2018 Assessment & Plan (1) Abdominal pain: - C/o left sided abd pain with radiation to flank region, unclear etiology but seems to possibly be neuropathic in nature; mild improvement, now rated as a 7/10. -Has significant muscle spasm of the left thoracolumbar paraspinous muscles on examination - CT A/P showed severe hepatic steatosis, significantly worse than prior exam likely related to ETOH abuse. - H/o T spine cord lesion -- obtaining MRI of L and T spine for evaluation. - Lipase level WNL over last 48 hours. - PPI BID for gastritis/?gastric ulcer. - Bowel regimen -- Senna S BID with Miralax BID, scheduled. - U/a was negative for UTI. - Will consult GI due to persistent left sided abd pain and elevated LFTs. - Dilaudid 0.5 mg IV q4hr prn pain - has been using med frequently. (2) Spinal cord lesion: - H/o T2 hyperintense focus within posterior aspect of the thoracic cord at level of T5-T6; diagnosed in October 2017, was referred to [facility]. - Follow up MRI in Dec 2017 showed stable lesion; has not had follow up imaging. - Will complete MRI of T and L spine for evaluation. -Consider consultation with either [facility] neurology or orthopedic spine surgeon based on results (3) Rash: - Has had sam erythematous macular rash over last few weeks, intermittent. - Unclear etiology -- will continue to monitor. -Appears similar to livedo reticularis but would not expect this to be on the abdomen and flank Happens to be in the same dermatome as her possible radiculitis-could be related, possibly vasospasm -Check hepatitis panel (4) Alcohol withdrawal: - Pt. reports drinking 3-4 times per week, "a couple drinks" on those specific days. Her significantly elevated LFTs including a 2-1 AST to ALT ratio suggest alcoholic hepatitis - Banana bag q24hr x 3 days. - AWSS protocol was initiated with Ativan prn - no evidence of acute withdrawal. - ETOH level neg on admission; B12 level elevated, Folate WNL. - Continue B1, B12 and Folate supplementation. - May require rehab at discharge; no h/o DT's. (5) Hyponatremia: - Hyponatremic at baseline in setting of ETOH abuse/Potomania. -Initially treated with IV fluids, but will now discontinue normal saline - BMP qAM. (6) Hepatic steatosis: - CT showed severe hepatic steatosis, significantly worse than prior imaging. - Pt. was educated on the discontinuation of ETOH use at home. -Needs GI follow-up (7) Elevated LFTs: - Elevated T. bili, AST, ALT and Alk Phos levels at admission, now slightly improved --consistent with acute alcoholic hepatitis in the setting of alcoholic fatty liver INR is normal, platelets are normal - Consult GI for evaluation. - Monitor CMP daily. (8) Constipation: - Bowel regimen: Senna S BID and Miralax BID both scheduled. - Has not had a BM in 3 days - may be contributing. (9) Neuropathy: -Increase gabapentin 300 mg to twice daily (10) Hypothyroidism: - Continue Synthroid 112 mcg daily. - TSH level is elevated at 11 -If not consistent or compliant with taking her home dose of Synthroid, would suggest increasing to 125 (11) Chronic pancreatitis: - As noted above; Lipase level currently WNL with no evidence of pancreatitis no CT imaging. (12) HTN (hypertension): - Continue Lisinopril 20 mg daily. - BP has been mildly elevated, SBP 140's - monitor for ETOH withdrawal. (13) Pancytopenia: Platelets are actually normal but has leukopenia and anemia which is likely dilutional Macrocytosis is likely secondary to alcohol use B12 and folate levels are normal TSH is elevated and will be corrected Follow CBC (14) Electrolyte abnormality: - K level 3.4 -- ordered K 20 mEq PO. - Monitor levels qAM. (15) DVT prophylaxis: - SCDs; Lovenox daily. Dispo: Med/surg for evaluation of abd pain. Supervising Physician Co-Signing Physician Notes DELIA Supervision Note: I personally saw and examined the patient with DELIA Nails. I verified all osman points and agree with DELIA Nails with the following exceptions and/or additions: Patient with persistent burning sharp and shooting pain from under the left breast down the left side of abdomen radiating around to the left back Lacy rash as above Positive muscle spasm palpated in left thoracolumbar region in the paraspinous muscles with positive tenderness palpation in that region No tenderness to palpation of the abdomen No lower extremity edema Plan outlined as above Subjective Pt. has ongoing left sided abd pain today -- rated as 7/10 on pain scale. Denies nausea/vomiting. Has not had a BM in 3 days but is passing gas. Has a rash located on left side of abdomen extending into left flank region -- rash has been present on and off for the last few days. Denies vesicular rash, pruritus of rash. She has been using Dilaudid IV for pain control, therefore she is not stable for discharge to home. Review of Systems Review of Systems: All systems reviewed & are unremarkable except as noted in HPI & below Constitutional: + fatigue, + weakness and + anorexia; no fever and no chills Respiratory: no cough, no dyspnea, no dyspnea on exertion and no wheezing Cardiovascular: no chest pain, no palpitations and no edema Gastrointestinal: + abdominal pain and + constipation; no nausea, no vomiting and no diarrhea/loose stools Genitourinary: no difficulty urinating Musculoskeletal: no back pain and no joint pain Integumentary: + rash Physical Exam Physical Exam: General: In no acute distress HEENT: NC/AT; PERRLA with EOMI; Ulysses conjunctiva, MMM. No erythema of posterior pharynx Neck: Supple and nontender Cardiac: RRR Lungs: CTA bilaterally Abdomen: Mild distention; Bowel normoactive X 4; TTP over left lower abdomen. Extremities: Warm. No edema present Neuro: No focal weakness Skin: Erythematous macular "sam" rash noted over left abdomen with extension into left flank. Results & Data Vital Signs (Past 12 Hours) Vital Signs Temp Pulse Pulse Resp BP Pulse Ox 10/31/18 13:05 36.8 C 89 17 126/89 97 10/31/18 11:45 36.8 C 96 H 17 152/106 H 98 10/31/18 07:19 91 H 10/31/18 06:57 36.7 C 91 H 16 146/98 H 96 10/31/18 03:57 36.9 C 94 H 12 143/98 H 92 10/31/18 03:34 117 H 22 152/90 H Laboratory Results 10/31/18 10/31/18 10/30/18 Range/Units 07:39 07:39 20:05 WBC 1.80 L (4.8-10.8) K/uL RBC 3.27 L (4.2-5.4) M/uL Hgb 11.1 L (12.0-16.0) g/dL Hct 33.2 L (37-47) % MCV 101.5 H (80-100) fL MCH 33.9 (25-34) pg MCHC 33.4 (32-36) g/dL RDW Std Deviation 53.6 H (36.4-46.3) fL RDW Coeff of Citlaly 14.4 (11.5-14.5) % Plt Count 177 (130-400) K/uL MPV 9.7 (7.4-10.4) fL Immature Gran % (Auto) % Neut % (Auto) % Lymph % (Auto) % Childress % (Auto) % Eos % (Auto) % Baso % (Auto) % Immature Gran # (Auto) (0.00-0.02) K/uL Neut # (Auto) (1.4-6.5) K/uL Lymph # (Auto) (1.2-3.4) K/uL Childress # (Auto) (0.11-0.59) K/uL Eos # (Auto) (0-0.5) K/uL Baso # (Auto) (0-0.2) K/uL PT (9.0-12.0) Seconds INR (0.9-1.1) Sodium 135 L (136-145) mmol/L Potassium 3.4 L (3.5-5.1) mmol/L Chloride 105 (98-107) mmol/L Carbon Dioxide 25 (21-32) mmol/L Anion Gap 6.0 (3-11) BUN 6 L (7-18) mg/dl Creatinine 0.62 (0.6-1.2) mg/dl Est Cr Clr Drug Dosing 98.2 ml/min Est GFR ( Amer) 119.3 Est GFR (Non-Af Amer) 102.9 BUN/Creatinine Ratio 10.4 (10-20) Glucose 66 L (70-99) mg/dl Calcium 8.1 L (8.5-10.1) mg/dl Magnesium 1.8 (1.8-2.4) mg/dl Total Bilirubin 1.4 H (0.2-1) mg/dl AST 153 H (15-37) U/L ALT 66 (12-78) U/L Alkaline Phosphatase 165 H (45-117) U/L Ammonia (11-32) umol/L Total Protein 6.3 L D (6.4-8.2) gm/dl Albumin 2.8 L (3.4-5.0) gm/dl Globulin 3.5 (2.5-4.0) gm/dl Albumin/Globulin Ratio 0.8 L (0.9-2) Amylase (25-115) U/L Lipase 121 (73-393) U/L Vitamin B12 1226 H (211-911) pg/ml Folate 22.17 (>5.38) ng/ml Urine Color Urine Appearance (Clear) Urine pH (4.5-7.5) Ur Specific [place] (1.000-1.030) Urine Protein (Negative) Urine Glucose (UA) (Negative) Urine Ketones (Negative) Urine Blood (Negative) Urine Nitrite (Negative) Urine Bilirubin (Negative) Urine Urobilinogen (Negative) Ur Leukocyte Esterase (Negative) Ethyl Alcohol mg/dL (0-3) mg/dl 10/30/18 10/30/18 10/30/18 Range/Units 17:40 16:04 15:32 WBC (4.8-10.8) K/uL RBC (4.2-5.4) M/uL Hgb (12.0-16.0) g/dL Hct (37-47) % MCV (80-100) fL MCH (25-34) pg MCHC (32-36) g/dL RDW Std Deviation (36.4-46.3) fL RDW Coeff of Citlaly (11.5-14.5) % Plt Count (130-400) K/uL MPV (7.4-10.4) fL Immature Gran % (Auto) % Neut % (Auto) % Lymph % (Auto) % Childress % (Auto) % Eos % (Auto) % Baso % (Auto) % Immature Gran # (Auto) (0.00-0.02) K/uL Neut # (Auto) (1.4-6.5) K/uL Lymph # (Auto) (1.2-3.4) K/uL Child[place] # (Auto) (0.11-0.59) K/uL Eos # (Auto) (0-0.5) K/uL Baso # (Auto) (0-0.2) K/uL PT (9.0-12.0) Seconds INR (0.9-1.1) Sodium (136-145) mmol/L Potassium (3.5-5.1) mmol/L Chloride (98-107) mmol/L Carbon Dioxide (21-32) mmol/L Anion Gap (3-11) BUN (7-18) mg/dl Creatinine (0.6-1.2) mg/dl Est Cr Clr Drug Dosing ml/min Est GFR ( Amer) Est GFR (Non-Af Amer) BUN/Creatinine Ratio (10-20) Glucose (70-99) mg/dl Calcium (8.5-10.1) mg/dl Magnesium (1.8-2.4) mg/dl Total Bilirubin (0.2-1) mg/dl AST (15-37) U/L ALT (12-78) U/L Alkaline Phosphatase (45-117) U/L Ammonia 11.9 (11-32) umol/L Total Protein (6.4-8.2) gm/dl Albumin (3.4-5.0) gm/dl Globulin (2.5-4.0) gm/dl Albumin/Globulin Ratio (0.9-2) Amylase (25-115) U/L Lipase (73-393) U/L Vitamin B12 (211-911) pg/ml Folate (>5.38) ng/ml Urine Color Yellow Urine Appearance Clear (Clear) Urine pH 8.0 H (4.5-7.5) Ur Specific [place] > 1.045 H (1.000-1.030) Urine Protein Negative (Negative) Urine Glucose (UA) Negative (Negative) Urine Ketones Negative (Negative) Urine Blood Negative (Negative) Urine Nitrite Negative (Negative) Urine Bilirubin Negative (Negative) Urine Urobilinogen Positive H (Negative) Ur Leukocyte Esterase Negative (Negative) Ethyl Alcohol mg/dL < 3.0 (0-3) mg/dl 10/30/18 10/30/18 10/30/18 Range/Units 13:48 13:48 13:48 WBC (4.8-10.8) K/uL RBC (4.2-5.4) M/uL Hgb (12.0-16.0) g/dL Hct (37-47) % MCV (80-100) fL MCH (25-34) pg MCHC (32-36) g/dL RDW Std Deviation (36.4-46.3) fL RDW Coeff of Citlaly (11.5-14.5) % Plt Count (130-400) K/uL MPV (7.4-10.4) fL Immature Gran % (Auto) % Neut % (Auto) % Lymph % (Auto) % Childress % (Auto) % Eos % (Auto) % Baso % (Auto) % Immature Gran # (Auto) (0.00-0.02) K/uL Neut # (Auto) (1.4-6.5) K/uL Lymph # (Auto) (1.2-3.4) K/uL Child[place] # (Auto) (0.11-0.59) K/uL Eos # (Auto) (0-0.5) K/uL Baso # (Auto) (0-0.2) K/uL PT 11.5 (9.0-12.0) Seconds INR 1.1 (0.9-1.1) Sodium 132 L (136-145) mmol/L Potassium 3.5 (3.5-5.1) mmol/L Chloride 99 (98-107) mmol/L Carbon Dioxide 23 (21-32) mmol/L Anion Gap 10.0 (3-11) BUN 5 L (7-18) mg/dl Creatinine 0.84 (0.6-1.2) mg/dl Est Cr Clr Drug Dosing 72.5 ml/min Est GFR ( Amer) 92.0 Est GFR (Non-Af Amer) 79.3 BUN/Creatinine Ratio 6.1 L (10-20) Glucose 91 (70-99) mg/dl Calcium 9.4 (8.5-10.1) mg/dl Magnesium (1.8-2.4) mg/dl Total Bilirubin 2.7 H (0.2-1) mg/dl AST 272 H (15-37) U/L ALT 104 H (12-78) U/L Alkaline Phosphatase 236 H (45-117) U/L Ammonia (11-32) umol/L Total Protein 8.1 (6.4-8.2) gm/dl Albumin 3.4 (3.4-5.0) gm/dl Globulin 4.7 H (2.5-4.0) gm/dl Albumin/Globulin Ratio 0.7 L (0.9-2) Amylase Cancelled 30 (25-115) U/L Lipase 308 (73-393) U/L Vitamin B12 (211-911) pg/ml Folate (>5.38) ng/ml Urine Color Urine Appearance (Clear) Urine pH (4.5-7.5) Ur Specific [place] (1.000-1.030) Urine Protein (Negative) Urine Glucose (UA) (Negative) Urine Ketones (Negative) Urine Blood (Negative) Urine Nitrite (Negative) Urine Bilirubin (Negative) Urine Urobilinogen (Negative) Ur Leukocyte Esterase (Negative) Ethyl Alcohol mg/dL (0-3) mg/dl 10/30/18 Range/Units 13:48 WBC 2.96 L (4.8-10.8) K/uL RBC 4.02 L (4.2-5.4) M/uL Hgb 13.7 (12.0-16.0) g/dL Hct 39.9 (37-47) % MCV 99.3 (80-100) fL MCH 34.1 H (25-34) pg MCHC 34.3 (32-36) g/dL RDW Std Deviation 50.1 H (36.4-46.3) fL RDW Coeff of Citlaly 14.0 (11.5-14.5) % Plt Count 193 (130-400) K/uL MPV 10.5 H (7.4-10.4) fL Immature Gran % (Auto) 0.0 % Neut % (Auto) 68.2 % Lymph % (Auto) 16.9 % Childress % (Auto) 12.8 % Eos % (Auto) 1.4 % Baso % (Auto) 0.7 % Immature Gran # (Auto) 0.00 (0.00-0.02) K/uL Neut # (Auto) 2.02 (1.4-6.5) K/uL Lymph # (Auto) 0.50 L (1.2-3.4) K/uL [place] # (Auto) 0.38 (0.11-0.59) K/uL Eos # (Auto) 0.04 (0-0.5) K/uL Baso # (Auto) 0.02 (0-0.2) K/uL PT (9.0-12.0) Seconds INR (0.9-1.1) Sodium (136-145) mmol/L Potassium (3.5-5.1) mmol/L Chloride (98-107) mmol/L Carbon Dioxide (21-32) mmol/L Anion Gap (3-11) BUN (7-18) mg/dl Creatinine (0.6-1.2) mg/dl Est Cr Clr Drug Dosing ml/min Est GFR ( Amer) Est GFR (Non-Af Amer) BUN/Creatinine Ratio (10-20) Glucose (70-99) mg/dl Calcium (8.5-10.1) mg/dl Magnesium (1.8-2.4) mg/dl Total Bilirubin (0.2-1) mg/dl AST (15-37) U/L ALT (12-78) U/L Alkaline Phosphatase (45-117) U/L Ammonia (11-32) umol/L Total Protein (6.4-8.2) gm/dl Albumin (3.4-5.0) gm/dl Globulin (2.5-4.0) gm/dl Albumin/Globulin Ratio (0.9-2) Amylase (25-115) U/L Lipase (73-393) U/L Vitamin B12 (211-911) pg/ml Folate (>5.38) ng/ml Urine Color Urine Appearance (Clear) Urine pH (4.5-7.5) Ur Specific [place] (1.000-1.030) Urine Protein (Negative) Urine Glucose (UA) (Negative) Urine Ketones (Negative) Urine Blood (Negative) Urine Nitrite (Negative) Urine Bilirubin (Negative) Urine Urobilinogen (Negative) Ur Leukocyte Esterase (Negative) Ethyl Alcohol mg/dL (0-3) mg/dl PG Care Time/CCT Total # of Minutes Spent Total Time Spent with Patient: Total time spent is greater than 50% in coordination of care (as documented) at patient's floor/unit and/or counseling patient: (1) Alcohol withdrawal Complication of substance-induced condition: with unspecified complication Qualified Code(s): F10.239 - Alcohol dependence with withdrawal, unspecified (2) Abdominal pain Abdominal location: left upper quadrant Qualified Code(s): R10.12 - Left upper quadrant pain
--- NOTE | 2018-10-31 18:47 | Magnetic Resonance Report ---
MR thoracic spine wo con CLINICAL HISTORY: 53 years-old Female presenting with H/o T5-T6 lesion. TECHNIQUE: Multisequence, multiplanar MR imaging of the thoracic spine was performed without the use of intravenous contrast. IV contrast: None. COMPARISON: 12/28/2017. FINDINGS: Localizer images: Unremarkable. Normal thoracic kyphosis. Vertebral bodies maintain normal height, alignment, and bone marrow signal intensity apart from a punctate T2 hyperintense lesion in T11. This is unchanged from prior exam and may represent a cyst or atypical hemangioma. No suspicious marrow lesion. Trace disc osteophyte compl exes noted at T7-8 through T9-10. There is mild effacement of the left lateral recess at T8-9 without evidence of abutment on the spinal cord. Neural foramina are widely patent. The thoracic spinal cord again demonstrates the mildly expansive T2 hyperintense lesion along the lulu sum and left lateral aspect of the thoracic spinal cord at the level of T5-6. This has not changed fr om prior. No new thoracic spinal cord lesion. No epidural collection. No paraspinal muscle edema. Flow voids within the vasculature preserved. Remaining visualized soft tissues within normal limits. IMPRESSION: Stable appearance of the thoracic spinal cord lesion at T5-6. No change in size or extent. This is no t characteristic of a syrinx given its eccentricity. Continued surveillance is recommended potentiall y with intravenous contrast on follow-up examinations. Electronically signed by: Doanld Ortiz M.D. 10/31/2018 6:45 PM
--- NOTE | 2018-10-31 19:02 | Consultation Report ---
DATE OF CONSULTATION: 10/31/2018 REASON FOR CONSULTATION: Abdominal pain and abnormal liver tests. HISTORY OF PRESENT ILLNESS: The patient is a 53-year-old alcoholic, who I had seen before for pancreatitis related to alcohol. The patient presents to the Emergency Room yesterday with a 5-day history of abdominal pain rated 10/10. She has had similar episodes in the past. She had an EGD a year ago and it was normal. Since being hospitalized, she had a CAT scan of the abdomen that shows a significant steatosis of the liver, but no evidence of cirrhosis. Ultrasound showed normal gallbladder and also confirmed the steatosis. Her lipase was normal. Pancreas was normal on CT imaging. Her liver tests were abnormal with an abnormal AST, a normal ALT consistent with alcohol-related liver disease. She states that her last drink was 2 days ago and she has been receiving medication for alcohol withdrawal. PAST MEDICAL HISTORY: Remarkable for hypothyroidism, hypertension, anxiety, neuropathy, chronic back pain, degenerative disk disease, diverticular disease, chronic hip pain, pancreatitis, hyperlipidemia, osteoarthritis, history of tubal ligation, . MEDICATIONS: Include gabapentin, levothyroxine, lisinopril, nifedipine, omeprazole, vitamin D, vitamin B12, fish oil. ALLERGIES: SULFA AND TRAMADOL. FAMILY HISTORY: Positive for diabetes in her mother, grandmother, uncle. There is also family history of hypertension and heart disease. SOCIAL HISTORY: The patient is . She lives at home. Does not smoke. Drinks alcohol several drinks 3-4 days a week, usually rum or hard liquor. REVIEW OF SYSTEMS: Not obtainable as the patient was continually talking on the telephone. PHYSICAL EXAMINATION: Was also limited by the fact that the patient was talking on the telephone and did not interrupt her conversation. The patient has normal vital signs; pulse is 72, blood pressure 124/88, room air saturation is 98%. The patient was speaking clearly on the phone and was obviously not encephalopathic. There was no obvious tremor. Further complete exam was not possible as the patient continued to talk on the phone while I was in the room. IMPRESSION AND PLAN: The patient has alcohol hepatitis with severe steatosis, but no evidence of cirrhosis at this point. Some of her abdominal pain, if not all, that may be from the expansion of her liver from fat stretching the Julio César's capsule which is innervated with sensory nerves. There are no other focal abnormalities evident on CT scan. At this point, I would continue to treat her for alcohol withdrawal and give her thiamine. I would also check a TSH to assess her thyroid function at this point. I have no further suggestions at this time.
--- NOTE | 2018-10-31 19:11 | Magnetic Resonance Report ---
MR lumbar spine wo con CLINICAL HISTORY: 53 years-old Female presenting with chronic back pain with left-sided radiculopathy . TECHNIQUE: Multisequence, multiplanar MR imaging of the lumbar spine was performed without the use of intravenous contrast. IV contrast: None. COMPARISON: 11/27/2011 and L spine radiographs from 2018. FINDINGS: Localizer images: Unremarkable. Straightening of normal lumbar lordosis. The spinal canal is narrow on a developmental basis. Trace r etrolisthesis of L3 on L4 and L4 on L5 unchanged. Vertebral body height loss of L5, which is unchange d. Trace endplate edema at L3-4 and L5-S1 likely on a degenerative basis. Remainder of the vertebral body symmetry normal height, alignment, and bone marrow signal intensity. Intervertebral disc height loss to a moderate degree at L3-4 and severe degree at L5-S1. Trace fluid is noted within the interve rtebral disc at L3-4. Additional multilevel degenerative changes further detail below: L1-2: Trace disc bulge. No significant spinal canal or neural foraminal narrowing. L2-3: Disc bulge with mild facet arthropathy and prominence of epidural fat results in mild circumfer ential narrowing of the thecal sac and moderate effacement of the lateral recesses. Mild right and mi ld to moderate left neural foraminal narrowing. Abutment of the exiting left L2 nerve root suspected. L3-4: Moderate disc bulge with facet arthropathy and ligamentum flavum thickening as well as prominen ce of epidural fat. This results in moderate circumferential narrowing of the thecal sac with trace r esidual CSF. Severe effacement of the lateral recesses. Mass effect on the exiting right L3 nerve alexa t and abutment of the exiting left L3 nerve root. Severe right and moderate left neural foraminal sridhar rowing. L4-5: Moderate disc bulge with mild facet arthropathy and significant ligamentum flavum thickening re sults in severe circumferential effacement of the thecal sac with trace if any residual CSF. This is also a product of the congenitally narrow spinal canal and prominent epidural fat. Severe bilateral n eural foraminal narrowing left greater than right. Mass effect on the exiting left L4 nerve root. Mas s effect on the bilateral transiting L5 nerve roots. L5-S1: Disc osteophyte complex with moderate effacement of the ventral thecal sac. Severe bilateral n eural foraminal narrowing. Spinal cord terminates in good position at L1. Cauda equina normal in morphology apart from crowding as mentioned above. No paraspinal muscle edema. Fluid in the facet joints noted at L3-4 and L4-L5 vanesa davion on the left. Flow voids within the vasculature preserved. Remainder of the visualized soft tissues within normal l imits. IMPRESSION: 1. 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 Severe spinal canal stenosis at L4-5, however, no convincing eviden ce of cauda equina impingement. Multilevel neural foraminal narrowing left greater than right with ma ss effect on the exiting nerve roots as detailed above. 2. Bony endplate edema with trace intervertebral discs fluid at L3-4 is felt to most likely be degen erative in etiology. Electronically signed by: Donald Ortiz M.D. 10/31/2018 7:09 PM
[2018-10-31] MEDS: ENOXAPARIN INJ 40 MG/0.4 ML SYR SQ SCH (20:25)
[2018-10-31] MEDS: GABAPENTIN 300 MG CAP PO SCH (20:28)
[2018-11-01] MEDS: HYDROmorphone INJ 0.5 MG/0.5 ML SYR IV PRN ×3 (01:35→12:14)
[2018-11-01 06:36] LABS: Hematocrit (blood only) 34.5 % (37-47); Hemoglobin 11.6 g/dL (12.0-16.0); Mean Corpuscular Hemoglobin 34.4 pg (25-34); Mean Corpuscular Hgb Conc 33.6 g/dL (32-36); Mean Corpuscular Volume 102.4 fL (80-100); Mean Platelet Volume 9.9 fL (7.4-10.4); Platelet Count 194 K/uL (130-400); RDW Coefficient of Variation 14.3 % (11.5-14.5); RDW Standard Deviation 52.9 fL (36.4-46.3); Red Blood Count 3.37 M/uL (4.2-5.4); White Blood Count 2.66 K/uL (4.8-10.8)
[2018-11-01 07:12] LABS: BUN Creatinine Ratio 8.4 (10-20); Calcium 8.3 mg/dl (8.5-10.1); Creatinine Clr Calc Pharmacy 110.7 ml/min; Est GFR (African American) 124.1; Est GFR (Non-African American) 107.1; Magnesium 1.8 mg/dl (1.8-2.4); Potassium 3.4 mmol/L (3.5-5.1)
[2018-11-01 07:23] LABS: Albumin Globulin Ratio 0.8 (0.9-2); Bilirubin,Total 1.5 mg/dl (0.2-1); Globulin 3.7 gm/dl (2.5-4.0); Thyroid Stimulating Hormone 8.82 uIu/ml (0.300-4.500); Total Protein 6.7 gm/dl (6.4-8.2)
[2018-11-01 07:36] LABS: T4 Free Thyroxine 1.43 ng/dl (0.8-1.6)
[2018-11-01] MEDS: DOCUSATE SODIUM/SENNA 50/8.6MG TAB PO SCH ×2 (07:55→20:42)
[2018-11-01] MEDS: CYANOCOBALAMIN 500 MCG TABLET (VITAMIN B-12) PO SCH (07:55)
[2018-11-01] MEDS: GABAPENTIN 300 MG CAP PO SCH ×2 (07:55→20:41)
[2018-11-01] MEDS: POLYETHYLENE (MIRALAX) 17 GM PACK PO SCH ×2 (07:55→20:41)
[2018-11-01] MEDS: PANTOprazole 40 MG TAB PO SCH ×2 (07:56→20:42)
[2018-11-01] MEDS: LEVOTHYROXINE SODIUM 112 MCG TABLET PO SCH (07:56)
[2018-11-01] MEDS: LISINOPRIL 20 MG TAB PO SCH (07:57)
[2018-11-01] MEDS: FOLIC ACID 1 MG TAB PO SCH (07:57)
[2018-11-01] MEDS: THIAMINE HCL 100 MG TAB PO SCH (07:58)
[2018-11-01] MEDS ORDERED: MULTI-VITAMIN INFUSION 10 ML, THIAMINE HCL 100 MG, FOLIC ACID 1 MG in SODIUM CHLORIDE 0... IV SCH (09:00)
[2018-11-01] MEDS ORDERED: POTASSIUM CHLORIDE 20 MEQ TABCR PO ONE (09:00)
[2018-11-01] MEDS: LORazepam 1 MG TAB PO PRN ×2 (09:15→20:44)
[2018-11-01 09:29] LABS: Hepatitis B Surface Antigen Neg (Neg)
[2018-11-01 09:57] LABS: Hepatitis C IgG 13Yrs+Old_Rflx Neg (Neg)
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
[2018-11-01] MEDS: HYDROCODONE/ACETAMOPHEN 5/325MG TAB PO PRN ×2 (14:21→18:41)
--- NOTE | 2018-11-01 15:20 | Hospitalist Progress Note ---
Date of Service November 01, 2018 Assessment & Plan (1) Abdominal pain: - C/o left sided abd pain with radiation to flank region, seems to possibly be neuropathic in nature; continues to use IV narcotics. - CT A/P showed severe hepatic steatosis, significantly worse than prior exam likely related to ETOH abuse. - H/o T spine cord lesion -- MRI showed unchanged lesion, is not likely source of pain. - Lipase level was normal. Continue PPI for gastritis in setting of ETOH abuse. - Bowel regimen with Senna S BID with Miralax BID. - U/a was negative for UTI. - Consulted GI, pain may be related to expansion of her liver from fat stretching the Julio César's capsule and innervating sensory nerves. - Consulted pain management, appreciate input. Will start Byron q4hr prn (caution with Tylenol) and d/c Dilaudid IV. - Has muscle spasm of the left thoracolumbar paraspinous muscles noted on exam -- added Baclofen 10 mg BID. - Recommend entrance into AA program as outpatient and absolute discontinuation of ETOH use. 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. - Follow up MRI in Dec 2017 showed stable lesion. - T spine MRI showed stable appearance of T5-T6 lesion compared to prior imaging. - L spine MRI showed extensive multilevel changes arising from congenitally narrow spinal canal and mild epidural lipomatosis with severe canal stenosis at L4-L5. - Requested records from [facility] neurology. - Will benefit from follow up with ortho spine for L-spine degenerative changes. (3) Rash: - Has had sam erythematous macular rash over last few weeks, intermittent. - Appears similar to livedo reticularis but would not expect to be on abdomen. - Hepatitis panel is pending; consider other viral studies. (4) Alcohol withdrawal: - Pt. reports drinking 3-4 times per week, "a couple drinks" on those specific days. Her significantly elevated LFTs including a 2-1 AST to ALT ratio suggest alcoholic hepatitis - Banana bag q24hr x 3 days. - AWSS protocol - no evidence of acute withdrawal. - B12 level elevated, Folate WNL. Continue B1, B12 and Folate supplementation. - Recommend AA program at discharge; discussed ETOH discontinuation with patient daily during rounds. Also discussed ETOH use with her daughter via phone call - she reports her mother has increased ETOH consumption recently. (5) Hyponatremia: - Hyponatremic at baseline in setting of ETOH abuse/Potomania. - Na level now improved, will monitor frequently. (6) Hepatic steatosis: - CT showed severe hepatic steatosis, significantly worse than prior imaging. - Pt. was educated on the discontinuation of ETOH use at home. - GI consulted, will need to follow up as outpatient. (7) Elevated LFTs: - Elevated T. bili, AST, ALT and Alk Phos levels at admission, now slightly improved -- consistent with acute alcoholic hepatitis in the setting of alcoholic fatty liver - Coags and plt count WNL. - LFTs remain elevated but may be approaching her baseline, will continue to monitor daily. - Caution with Tylenol containing products -- currently receiving Byron per pain management. (8) Constipation: - Bowel regimen: Senna S BID and Miralax BID both scheduled. (9) Neuropathy: - Increased gabapentin 300 mg to twice daily. (10) Hypothyroidism: - Continue Synthroid 112 mcg daily. - TSH level is elevated at 11. Pt. has not been taking her Synthroid 1.5 weeks prior to admission due to lack of insurance. Will hold med change and repeat TFTs in 4 weeks. (11) Chronic pancreatitis: - As noted above; Lipase level currently WNL with no evidence of pancreatitis no CT imaging. (12) HTN (hypertension): - Continue Lisinopril 20 mg daily. - BP has been elevated -- monitor for withdrawal. (13) Pancytopenia: - Platelets are actually normal but has leukopenia and anemia which is likely dilutional - Macrocytosis is likely secondary to alcohol use - B12 and folate levels are normal - Follow CBC daily. (14) Electrolyte abnormality: - K level 3.4 -- ordered K 20 mEq PO. (15) DVT prophylaxis: - SCDs; Lovenox daily. Dispo: Med/surg for evaluation of abd pain. Discharge pending pain control; will need GI, pain management follow up along with PCP. Recommend AA program at discharge and complete discontinuation of ETOH use. Supervising Physician Co-Signing Physician Notes PA Supervision Note: I did not personally see or examine the patient today, but I verified all osman points of DELIA Nails's assessment and plan with the following except ions/additions: None Subjective Pt. has ongoing left sided abd pain, rated as a 7/10 on pain scale. Pain is constant, described as nerve like pain. Is having small BMs. Denies nausea/vomiting. Is tolerating PO intake. Review of Systems Review of Systems: All systems reviewed & are unremarkable except as noted in HPI & below Constitutional: no fever, no chills, no fatigue, no weakness and no anorexia Respiratory: no cough, no dyspnea, no dyspnea on exertion and no wheezing Cardiovascular: no chest pain, no palpitations and no edema Gastrointestinal: + abdominal pain and + constipation; no nausea, no vomiting and no diarrhea/loose stools Genitourinary: no difficulty urinating Musculoskeletal: no back pain and no joint pain Integumentary: + rash Physical Exam Physical Exam: General: In no acute distress HEENT: NC/AT; PERRLA with EOMI; [place] conjunctiva, MMM. No erythema of posterior pharynx Neck: Supple and nontender Cardiac: RRR Lungs: CTA bilaterally Abdomen: Bowel normoactive X 4; TTP over left abdomen. Extremities: Warm. No edema present Neuro: No focal weakness; does have muscle spasm of left thoracolumbar paraspinous muscles region, TTP. Skin: Erythematous macular "sam" rash noted over left abdomen with extension into left flank, no pattern changer and repairer last 24 hours. Results & Data Vital Signs (Past 12 Hours) Vital Signs Temp Pulse Pulse Resp BP Pulse Ox 11/01/18 15:01 36.8 C 91 H 18 146/99 H 97 11/01/18 11:23 36.8 C 91 H 18 157/103 H 94 11/01/18 07:11 105 H 11/01/18 06:53 36.8 C 91 H 18 151/98 H 95 Laboratory Results 11/01/18 11/01/18 11/01/18 Range/Units 06:10 06:10 06:10 WBC (4.8-10.8) K/uL RBC (4.2-5.4) M/uL Hgb (12.0-16.0) g/dL Hct (37-47) % MCV (80-100) fL MCH (25-34) pg MCHC (32-36) g/dL RDW Std Deviation (36.4-46.3) fL RDW Coeff of Citlaly (11.5-14.5) % Plt Count (130-400) K/uL MPV (7.4-10.4) fL Sodium 135 L (136-145) mmol/L Potassium 3.4 L (3.5-5.1) mmol/L Chloride 102 (98-107) mmol/L Carbon Dioxide 24 (21-32) mmol/L Anion Gap 9.0 (3-11) BUN 5 L (7-18) mg/dl Creatinine 0.55 L (0.6-1.2) mg/dl Est Cr Clr Drug Dosing 110.7 ml/min Est GFR ( Amer) 124.1 Est GFR (Non-Af Amer) 107.1 BUN/Creatinine Ratio 8.4 L (10-20) Glucose 69 L (70-99) mg/dl Calcium 8.3 L (8.5-10.1) mg/dl Magnesium 1.8 (1.8-2.4) mg/dl Total Bilirubin 1.5 H (0.2-1) mg/dl AST 163 H (15-37) U/L ALT 67 (12-78) U/L Alkaline Phosphatase 207 H (45-117) U/L Total Protein 6.7 (6.4-8.2) gm/dl Albumin 3.0 L (3.4-5.0) gm/dl Globulin 3.7 (2.5-4.0) gm/dl Albumin/Globulin Ratio 0.8 L (0.9-2) TSH 8.820 H (0.300-4.500) uIu/ml Free T4 1.43 (0.8-1.6) ng/dl Hepatitis A IgM Ab Pending Hep Bs Antigen Neg (Neg) Hep B Core IgM Ab Pending Hepatitis C Antibody Neg (Neg) 11/01/18 10/31/18 Range/Units 06:10 07:39 WBC 2.66 L (4.8-10.8) K/uL RBC 3.37 L (4.2-5.4) M/uL Hgb 11.6 L (12.0-16.0) g/dL Hct 34.5 L (37-47) % MCV 102.4 H (80-100) fL MCH 34.4 H (25-34) pg MCHC 33.6 (32-36) g/dL RDW Std Deviation 52.9 H (36.4-46.3) fL RDW Coeff of Citlaly 14.3 (11.5-14.5) % Plt Count 194 (130-400) K/uL MPV 9.9 (7.4-10.4) fL Sodium (136-145) mmol/L Potassium (3.5-5.1) mmol/L Chloride (98-107) mmol/L Carbon Dioxide (21-32) mmol/L Anion Gap (3-11) BUN (7-18) mg/dl Creatinine (0.6-1.2) mg/dl Est Cr Clr Drug Dosing ml/min Est GFR ( Amer) Est GFR (Non-Af Amer) BUN/Creatinine Ratio (10-20) Glucose (70-99) mg/dl Calcium (8.5-10.1) mg/dl Magnesium (1.8-2.4) mg/dl Total Bilirubin (0.2-1) mg/dl AST (15-37) U/L ALT (12-78) U/L Alkaline Phosphatase (45-117) U/L Total Protein (6.4-8.2) gm/dl Albumin (3.4-5.0) gm/dl Globulin (2.5-4.0) gm/dl Albumin/Globulin Ratio (0.9-2) TSH 11.300 H (0.300-4.500) uIu/ml Free T4 (0.8-1.6) ng/dl Hepatitis A IgM Ab Hep Bs Antigen (Neg) Hep B Core IgM Ab Hepatitis C Antibody (Neg) PG Care Time/CCT Total # of Minutes Spent Total Time Spent with Patient: Total time spent is greater than 50% in coordination of care (as documented) at patient's floor/unit and/or counseling patient: (1) Alcohol withdrawal Complication of substance-induced condition: with unspecified complication Qualified Code(s): F10.239 - Alcohol dependence with withdrawal, unspecified (2) Abdominal pain Abdominal location: left upper quadrant Qualified Code(s): R10.12 - Left upper quadrant pain
[2018-11-01] MEDS: ENOXAPARIN INJ 40 MG/0.4 ML SYR SQ SCH (20:40)
[2018-11-01] MEDS: BACLOFEN 10 MG TAB PO SCH (20:40)
[2018-11-02 05:36] LABS: Hepatitis A Antibody IgM NON-REACTIVE (NON-REACTIVE); Hepatitis B Core Antibody IgM NON-REACTIVE (NON-REACTIVE)
[2018-11-02 06:26] LABS: Hematocrit (blood only) 34.8 % (37-47); Hemoglobin 11.7 g/dL (12.0-16.0); Mean Corpuscular Hemoglobin 34.1 pg (25-34); Mean Corpuscular Hgb Conc 33.6 g/dL (32-36); Mean Corpuscular Volume 101.5 fL (80-100); Mean Platelet Volume 9.6 fL (7.4-10.4); Platelet Count 201 K/uL (130-400); RDW Coefficient of Variation 14.5 % (11.5-14.5); RDW Standard Deviation 53.4 fL (36.4-46.3); Red Blood Count 3.43 M/uL (4.2-5.4); White Blood Count 2.06 K/uL (4.8-10.8)
[2018-11-02 06:59] LABS: BUN Creatinine Ratio 4.7 (10-20); Calcium 8.6 mg/dl (8.5-10.1); Est GFR (Non-African American) 105.2; Potassium 3.3 mmol/L (3.5-5.1)
[2018-11-02 07:02] LABS: Albumin Globulin Ratio 0.8 (0.9-2); Bilirubin,Total 1.3 mg/dl (0.2-1); Globulin 3.7 gm/dl (2.5-4.0); Total Protein 6.7 gm/dl (6.4-8.2)
[2018-11-02] MEDS: LORazepam 1 MG TAB PO PRN (07:07)
[2018-11-02] MEDS: HYDROCODONE/ACETAMOPHEN 5/325MG TAB PO PRN (07:07)
[2018-11-02] MEDS ORDERED: POTASSIUM CHLORIDE 20 MEQ TABCR PO STA (08:08)
[2018-11-02] MEDS: GABAPENTIN 300 MG CAP PO SCH (08:18)
[2018-11-02] MEDS: DOCUSATE SODIUM/SENNA 50/8.6MG TAB PO SCH (08:18)
[2018-11-02] MEDS: LEVOTHYROXINE SODIUM 112 MCG TABLET PO SCH (08:18)
[2018-11-02] MEDS: BACLOFEN 10 MG TAB PO SCH (08:18)
[2018-11-02] MEDS: PANTOprazole 40 MG TAB PO SCH (08:18)
[2018-11-02] MEDS: LISINOPRIL 20 MG TAB PO SCH (08:18)
[2018-11-02] MEDS: POLYETHYLENE (MIRALAX) 17 GM PACK PO SCH (08:19)
[2018-11-02] MEDS: CYANOCOBALAMIN 500 MCG TABLET (VITAMIN B-12) PO SCH (08:19)
[2018-11-02] MEDS: THIAMINE HCL 100 MG TAB PO SCH (08:19)
[2018-11-02] MEDS: FOLIC ACID 1 MG TAB PO SCH (08:19)
--- NOTE | 2018-11-02 13:51 | Discharge Summary ---
Date of Service November 02, 2018 Admission HPI Per Admitting Provider Mrs. Toribio is a 53 year old female with past medical history of ETOH abuse, neuropathy, hypothyroidism, chronic pancreatitis, HTN who presented with left sided abdominal pain. Pt. states she developed pain on Sunday but pain has steadily increased over the last few days. Pain is located on the left side of her abdomen, extending from the epigastric region to the lower abdomen then radiating to the left flank; rated as a 10/10. Has had loss of appetite. Is having very small BMs, most recently last evening. Has dark urine but denies urinary frequency, dysuria, hematuria. Denies chest pain, SOB, LE edema, head ache, nausea/vomiting, fever, chills. Pt. has h/o ETOH abuse but states she is trying to quit drinking. She reports drinking 3-4 days of the week, "a couple" glasses a night". Pt. states her most recent drink was 2 nights ago. Denies h/o DT's or inpatient ETOH rehab admissions. ER course: She received a banana bag, Zofran, Dilaudid and Ativan. CT of A/P was negative for acute etiology with exception of hepatic steatosis. U/a was negative. LFTs are elevated. Will admit for monitoring of ETOH withdrawal and lab work. Admission Exam Per Admitting Provider General: Appears older than stated age; accompanied by at bedside. HEENT: NC/AT; PERRLA with EOMI; [place] conjunctiva, MMM. No erythema of posterior pharynx Neck: Supple and nontender Cardiac: RRR Lungs: CTA bilaterally Abdomen: Abdomen is midly distended; Bowel normoactive X 4; TTP over left abdomen, both upper and lower. Extremities: Warm. No edema present Neuro: No focal weakness; no tremors noted on exam. Skin: No rash Principal Diagnosis ETOH Abuse, Abdominal Pain, Alcoholic Hepatitis Discharge Exam General: In no acute distress HEENT: NC/AT; PERRLA with EOMI; [place] conjunctiva, MMM. No erythema of posterior pharynx Neck: Supple and nontender Cardiac: RRR Lungs: CTA bilaterally Abdomen: Bowel normoactive X 4; non tender to palpation. Extremities: Warm. No edema present Neuro: No focal weakness Skin: Erythematous macular "sam" rash noted over left abdomen with extension into left flank, stable over last 48 hours. Discharge Data Allergies Allergy/AdvReac Type Severity Reaction Status Date / Time Sulfa (Sulfonamide Allergy Intermediate Rash Unverified 10/30/18 14:25 Antibiotics) tramadol AdvReac Unknown NAUSEA Verified 10/30/18 14:25 Consultations 10/30/18 16:49 ED Decision to Admit Stat 10/30/18 19:04 Consult Case Management - Discharge Planning Routine 10/31/18 12:30 Consult Gastroenterology Routine 11/01/18 08:49 Consult Pain Management Routine 11/01/18 14:33 Consult Health Information Management Routine Ordered Studies 10/30/18 13:37 CT abd pelvis IV con only Stat 10/31/18 16:12 MR lumbar spine wo con Urgent MR thoracic spine wo con Urgent 10/31/18 21:01 US gallbladder Routine Hospital Course (1) Abdominal pain: Left sided abd pain with radiation to flank region, seems to possibly be neuropathic in nature; was using IV narcotics frequently, converted to PO Greenwood. CT A/P showed severe hepatic steatosis, significantly worse than prior exam likely related to ETOH abuse. H/o T spine cord lesion -- MRI showed unchanged lesion, is not likely source of pain. Lipase level was normal. PPI for gastritis in setting of ETOH abuse. Bowel regimen with Senna S BID with Miralax BID. U/a was negative for UTI. Consulted GI, pain may be related to expansion of her liver from fat stretching the Julio César's capsule and innervating sensory nerves. Will need to follow up as outpatient for further evaluation. Consulted pain management, appreciate input. Converted Dilaudid IV to Greenwood q4hr prn -- pain was controlled with PO narcotics on day of discharge. Script provided for Greenwood, Disp#18 tabs. Muscle spasm of the left thoracolumbar paraspinous muscles noted on exam -- added Baclofen 10 mg BID scheduled. Script provided for Baclofen, Disp: 1 month. Recommend entrance into AA program as outpatient and absolute discontinuation of ETOH use. (2) Spinal cord lesion: H/o T2 hyperintense focus within posterior aspect of the thoracic cord at level of T5-T6; diagnosed in October 2017, was referred to [facility]. Follow up MRI in Dec 2017 showed stable lesion. T spine MRI showed stable appearance of T5-T6 lesion compared to prior imaging. L spine MRI showed extensive multilevel changes arising from congenitally narrow spinal canal and mild epidural lipomatosis with severe canal stenosis at L4-L5. Requested records from [facility] neurology - did not receive yet. Will benefit from follow up with ortho spine for L-spine degenerative changes. (3) Rash: Has had sam erythematous macular rash over last few weeks, intermittent. Appears similar to livedo reticularis but would not expect to be on abdomen. Hepatitis panel negative. consider other viral studies. Pt. reports rash is from heating pad at home. (4) Alcohol withdrawal: Reports drinking 3-4 times per week, "a couple drinks" on those specific days. Her significantly elevated LFTs including a 2-1 AST to ALT ratio suggest alcoholic hepatitis Banana bag q24hr x 3 days. AWSS protocol - no evidence of acute withdrawal, did require intermittent doses of Ativan prn. B12 level elevated, Folate WNL. Continue B1, B12 and Folate supplementation. Recommend AA program at discharge; discussed ETOH discontinuation with patient daily during rounds. Also discussed ETOH use with her daughter. Pt. was agreeable to discontinuing ETOH use at home. (5) Hyponatremia: Hyponatremic at baseline in setting of ETOH abuse/Potomania. Na level now improved. (6) Hepatic steatosis: CT showed severe hepatic steatosis, significantly worse than prior imaging. Pt. was educated on the discontinuation of ETOH use at home. GI consulted, will need to follow up as outpatient. (7) Elevated LFTs: Elevated T. bili, AST, ALT and Alk Phos levels at admission, now slightly improved -- consistent with acute alcoholic hepatitis in the setting of alcoholic fatty liver Coags and plt count WNL. LFTs remain elevated but were improved compared to admission. Caution with Tylenol containing products -- currently receiving Greenwood per pain management. (8) Constipation: Senna S BID and Miralax BID both scheduled. (9) Neuropathy: Increased gabapentin 300 mg to TID prior to discharge for both pain control and for reducing alcohol cravings. (10) Hypothyroidism: Continued Synthroid 112 mcg daily. TSH level is elevated at 11. Pt. has not been taking her Synthroid 1.5 weeks prior to admission due to lack of insurance. Will hold med change and repeat TFTs in 4 weeks. (11) Chronic pancreatitis: As noted above; Lipase level currently WNL with no evidence of pancreatitis no CT imaging. (12) HTN (hypertension): Continued Lisinopril 20 mg daily. (13) Pancytopenia: Platelets are actually normal but has leukopenia and anemia which is likely dilutional Macrocytosis is likely secondary to alcohol use B12 and folate levels are normal -Follow CBC as an outpatient (14) Electrolyte abnormality: K replaced as needed. (15) DVT prophylaxis: SCDs; Lovenox daily. Stable for discharge on 11/02/18. Total Time Total Time Spent Total Time Spent (In Minutes): >30 minutes Total Time Includes: Examination of the Patient, Discharge Planning, Medication Reconciliation, Communication With Other Providers and Other Discharge Plan Discharge Items Patient Disposition: Home - Self-Care Reason For Visit: ABD PAIN Discharge Diagnosis: ETOH abuse, Abdominal Pain, Alcoholic Hepatitis Condition: Good Discharge Goals: Decrease discomfort, Improve disease control, Improve function, Increase independence, Improve nutritional status and Prevent disease Activity: As commented below Exercise/Sports: Gradually increase as tolerated Non-emergency contact: Primary Care Provider and Electric Sealing Machine Operator Call non-emergency contact if: you have any medication questions, your symptoms worsen, your pain is not controlled, your pain is worsening, your pain is unusual for you, your pain is concerning for you and you have a fever Follow-up/Referrals: Nigel Chisholm DO [Surgeon] - (Please schedule a follow up with ortho spine in 3-4 weeks. ) Alfredito Carmichael [Physician] - (Please schedule a follow up with GI in 1-2 weeks. ) Tamika Ramirez CRNP [Primary Care Provider] - Diet: Regular Addtl Provider Instructions: 1. Abdominal Pain/ETOH Abuse/Alcoholic Hepatitis * Please discontinue use of all ETOH at home to prevent further liver damage. Consider an outpatient program, such as AA meetings. * Please schedule a follow up with GI in 1-2 weeks for further evaluation. * Prescriptions were provided for the following: - Gabapentin 300 mg three times daily. - Greenwood 1 tablet every 4 hours for acute pain. - Baclofen 10 mg twice daily. - B12, B1 and Folate supplementation. * Continue a bowel regimen at home to avoid constipation. 2. Spinal Cord Lesion/Degenerative Changes of the Lumbar Spine * Please follow up with [facility] to discuss outpatient monitoring of spinal cord lesion. * Please schedule a follow up with Dr. Chisholm to discuss L-spine changes. 3. Hypothyroidism * Please continue Synthroid 112 mcg daily. * You will need repeat thyroid studies in 4 weeks for re-evaluation. 4. Please schedule follow up with PCP in 1-2 weeks. Prescriptions: New hydrocodone-acetaminophen [Greenwood] 5-325 mg tablet 1 tab PO Q4H PRN (Reason: pain) Qty: 18 RF: 0 gabapentin 300 mg capsule 300 mg PO TID Qty: 90 RF: 0 baclofen 10 mg tablet 10 mg PO BID Qty: 60 RF: 0 pantoprazole [Protonix] 40 mg tablet,delayed release (DR/EC) 40 mg PO DAILY Qty: 30 RF: 0 Continued nifedipine 30 mg tablet extended release 24hr 30 mg PO QAM PRN (Reason: circulation) RF: 0 lisinopril 20 mg tablet 20 mg PO QAM RF: 0 omeprazole 20 mg capsule,delayed release(DR/EC) 20 mg PO QAM RF: 0 levothyroxine 112 mcg tablet 112 mg PO QAM RF: 0 omega-3 fatty acids [Fish Oil Concentrate] 1,000 mg Capsule 1,000 mg PO QAM RF: 0 cyanocobalamin (vitamin B-12) [Vitamin B-12] 1,000 mcg Tablet 1,000 mcg PO QAM RF: 0 cholecalciferol (vitamin D3) [Vitamin D3] 1,000 unit Capsule 1,000 unit PO WK RF: 0 Discontinued gabapentin 300 mg capsule 300 mg PO QAM RF: 0 Stand-Alone Forms: [facility] Discharge Orders: Discharge Order (Routine); Ordered 11/02/18 Ordered By: Sailaja Cunha Admission Data Admit Date/Time: 10/30/18 17:06 Attending Provider: Sailaja Cunha Admit Provider: Ko Dempsey Primary Care Provider: Tamika Ramirez Other Providers: Ko Dempesy ; Alfredito Carmichael ; Buffy Lee Service: Telemetry Medical Other Interventions: Discharge Summary Assessment (RN) Last Done: 11/02/18 11:05 Pending Studies at Discharge: No DC Date/Time DO NOT enter until pt leaves facility: 11/02/18 12:58 Supervising Physician Co-Signing Physician Notes PA Supervision Note: I personally saw and examined the patient. I verified all osman points and agree with DELIA Nails with the following exceptions and/or additions: Patient doing much better, pain is controlled Encouraged alcohol cessation Vitals reviewed Gen: AAOx3, NAD HEENT: Anicteric sclerae, EOMI CV: RRR no mgr nl S1S2 Pulm: CTAB no wcr Abd: +BS soft mildly tender on left side of abdomen, ND no masses or hernias Ext: No edema, 2+ DP pulses Skin: Lacy appearing brownish rash on left side of abdomen and flank, warm/dry Neuro: Full strength throughout 53-year-old female with history of alcohol abuse and severe fatty liver, here with intractable left-sided abdominal and flank pain thought to be secondary to severe fatty liver -Treatment outlined as above -Close follow-up with GI and PCP
[2018-11-05] MEDS ORDERED: CHOLECALCIFEROL 1,000 UNITS TAB PO SCH (09:00)
== END 2018-11-02 12:58 | disposition home or self-care (01) | DRG 433 ==
LOC: ED 13:00 → 2W 17:06 → SUATTDRO 17:06 → 2W 18:21

== ENCOUNTER 2019-01-06 10:29 | Inpatient (IN) ==
[2019-01-06] MEDS ORDERED: SODIUM CHLORIDE 0.9% 500 ML IV STA (10:57)
[2019-01-06] MEDS ORDERED: SODIUM CHLORIDE 0.9% 1000ML 2,000 ML IV ONE (11:19)
[2019-01-06] MEDS ORDERED: ONDANSETRON INJ 2 MG/ML 2 ML VIAL IV STA (11:19)
[2019-01-06] MEDS ORDERED: MoRPHine SULFATE 10 MG/ML CARP/VIAL IV STA (11:19)
[2019-01-06 11:21] LABS: Hematocrit (blood only) 38.2 % (37-47); Hemoglobin 13.2 g/dL (12.0-16.0); Mean Corpuscular Hemoglobin 33.6 pg (25-34); Mean Corpuscular Hgb Conc 34.6 g/dL (32-36); Mean Corpuscular Volume 97.2 fL (80-100); Mean Platelet Volume 9.4 fL (7.4-10.4); Platelet Count 399 K/uL (130-400); RDW Coefficient of Variation 12.1 % (11.5-14.5); RDW Standard Deviation 43.1 fL (36.4-46.3); Red Blood Count 3.93 M/uL (4.2-5.4); White Blood Count 7.29 K/uL (4.8-10.8)
[2019-01-06 11:35] LABS: BUN Creatinine Ratio 9.8 (10-20); Calcium 9.7 mg/dl (8.5-10.1); Creatinine Clr Calc Pharmacy 71.7 ml/min; Est GFR (African American) 90.7; Est GFR (Non-African American) 78.2; Potassium 4.1 mmol/L (3.5-5.1)
[2019-01-06] MEDS ORDERED: IOVERSOL 100ml IV PRN (11:47)
--- NOTE | 2019-01-06 12:06 | CT Scan Report ---
CT lumbar spine wo con HISTORY: 53 years-old Female lower back pain . Left lower quadrant abdominal pain with acute low roberto k pain COMPARISON: CT abdomen and pelvis of same day, MR lumbar spine 10/31/2018 TECHNIQUE: Multiple axial CT images of the lumbar spine were obtained without the use of IV contrast. A dose lowering technique was used consistent with the principals of ALARA. FINDINGS: Mild straightening of the normal lumbar lordosis. There are a few small scattered Schmorl's nodes thr oughout the lumbar spine. Severe L5-S1 disc space narrowing with spondylitic spurring and posterior d isc osteophyte complex. Moderate multilevel facet arthrosis. No acute fracture or subluxation. Minima l lumbar levoscoliosis. The imaged sacrum and iliac bones appear intact. Evaluation of the central ca nal and neuroforamina is better assessed by MRI. Multilevel central canal or neuroforaminal narrowing is redemonstrated. This includes severe central canal stenosis at L4-L5 with multilevel foraminal na rrowing. No abdominal aortic aneurysm or adenopathy. Paraspinal tissues are unremarkable. Minimal dependent lauren bsegmental bibasilar atelectasis. IMPRESSION: 1. No acute fracture or subluxation. 2. Multilevel degenerative changes as above. The above report was generated using voice recognition software. It may contain grammatical, syntax o r spelling errors. Electronically signed by: Charlie Bryant M.D. 01/06/2019 12:05 PM
--- NOTE | 2019-01-06 12:18 | CT Scan Report ---
CT abd pelvis IV con only CLINICAL HISTORY: 53 years-old Female presenting with abd pain llq. TECHNIQUE: Multidetector CT of the abdomen and pelvis was performed after the administration of intra venous contrast. IV contrast: 94 mL of Optiray 320. One or more dose lowering techniques were used co nsistent with the principles of ALARA (as low as reasonably achievable), including automatic exposure control, mA or kV adjustment to individual patient size, and/or use of iterative reconstruction. COMPARISON: 10/30/2018. CT DOSE (mGy.cm): The estimated cumulative dose is 303.11 mGy.cm. FINDINGS: Line Production Cook topogram: Unremarkable. Lung bases: Normal heart size. No pericardial or pleural effusion. Minimal dependent changes likely a telectasis. Liver: Normal morphology. Prior severe hepatic steatosis has resolved. Subcentimeter hypodense well-d efined lesions likely hepatic cysts or hamartomas. Minimal heterogeneous hypoenhancement of the paren chyma along the fissure for the ligamentum teres likely perfusional variation or focal fat. Patent he patic vasculature. Biliary: No intrahepatic or extrahepatic biliary ductal dilatation. Normal gallbladder. Pancreas: Normal. Spleen: Normal. Adrenal glands: Normal. Kidneys and ureters: Normal. No hydronephrosis. Bladder: Incompletely evaluated secondary to underdistention. Pelvic organs: Uterus and ovaries normal. Bowel: Diverticulosis of the proximal to mid sigmoid colon without wall thickening or pericolonic inf lammatory change. The appendix is normal. No bowel obstruction. Peritoneal cavity: No free fluid or intraperitoneal gas. Trace infiltration of the root of the small bowel mesentery may represent mesenteric panniculitis, unchanged from prior. Lymph nodes: No enlarged lymph nodes in the abdomen or pelvis. Vasculature: Atherosclerosis of the normal caliber abdominal aorta. IVC patent. Abdominal wall: Normal. Musculoskeletal: Degenerative changes of the spine. IMPRESSION: 1. Interval resolution of prior severe hepatic steatosis. 2. Diverticulosis coli. No evidence of acute diverticulitis or acute pathology in the left lower vin drant. Electronically signed by: Donald Ortiz M.D. 01/06/2019 12:16 PM
--- NOTE | 2019-01-06 12:19 | XRay Report ---
XR tibia fibula LT 2V CLINICAL HISTORY: 53 years-old Female presenting with left distal garrett pain, distal lower leg pain. TECHNIQUE: Frontal and lateral views of the left lower leg were obtained. COMPARISON: None. FINDINGS: Knee joint and ankle mortise congruent. No acute fracture or malalignment. No advanced degenerative c hange. No radiographic soft tissue abnormality. IMPRESSION: No acute osseous injury. Electronically signed by: Donald Ortiz M.D. 01/06/2019 12:18 PM
[2019-01-06] MEDS ORDERED: MoRPHine SULFATE 4 MG/ML 1 ML CARP\\VIAL IV STA ×2 (12:53→22:30)
[2019-01-06 13:09] LABS: Appearance Urine Clear (Clear); Bacteria Urine Automated 4+ (Negative); Bilirubin Urine Negative (Negative); Blood Urine Negative (Negative); Cast Urine Automated 0 /lpf (0-5); Color Urine Yellow; Glucose Urine UA Negative (Negative); Ketones Urine Negative (Negative); Leukocyte Esterase Urine 1+ (Negative); Nitrite Urine Negative (Negative); Protein Urine Negative (Negative); RBC Urine Automated 0-4 /hpf (0-4); Specific Gravity Urine 1.025 (1.000-1.030); Urobilinogen Urine Negative (Negative); pH Urine 6.5 (4.5-7.5)
[2019-01-06 13:24] LABS: Albumin Level 4.1 gm/dl (3.4-5.0); Bilirubin Direct 0.1 mg/dl (0-0.2); Bilirubin,Total 0.5 mg/dl (0.2-1); Total Protein 8.6 gm/dl (6.4-8.2)
[2019-01-06] MEDS ORDERED: cefTRIAXone SODIUM 1,000 MG/50 ML BAG IV STA (14:26)
[2019-01-06] MEDS ORDERED: THIAMINE HCL 100 MG in SYRINGE 9 ML IV STA (14:26)
[2019-01-06] MEDS ORDERED: FOLIC ACID 1 MG in SYRINGE 9.8 ML IV STA (14:26)
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
[2019-01-06] MEDS ORDERED: [UNRECOGNIZED DRUG - OTHER] PO PRN (16:20)
[2019-01-06] MEDS ORDERED: ONDANSETRON INJ 2 MG/ML 2 ML VIAL IV PRN (16:20)
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
[2019-01-06 16:44] LABS: Magnesium 1.8 mg/dl (1.8-2.4); Phosphorus 4.9 mg/dl (2.5-4.9)
[2019-01-06] MEDS: SODIUM CHLORIDE 0.9% 1000ML 1,000 ML IV SCH ×2 (16:44→23:54)
[2019-01-06] MEDS: KETOROLAC TROMETHAMINE 15 MG/ML VIAL IV PRN ×2 (16:46→23:54)
[2019-01-06] MEDS: LIDOCAINE 5% 1 PATCH TD SCH (17:43)
[2019-01-06] MEDS: GABAPENTIN 400 MG CAP PO SCH (18:40)
[2019-01-06] MEDS: BACLOFEN 10 MG TAB PO SCH (18:40)
[2019-01-07] MEDS: LEVOTHYROXINE SODIUM 125 MCG TABLET PO SCH (05:21)
[2019-01-07 06:00] LABS: Basophils # (auto) 0.03 K/uL (0-0.2); Basophils % (auto) 0.7 %; Eosinophils # (auto) 0.14 K/uL (0-0.5); Eosinophils % (auto) 3.1 %; Hematocrit (blood only) 35.4 % (37-47); Hemoglobin 11.9 g/dL (12.0-16.0); Immature Granulocytes # (auto) 0.01 K/uL (0.00-0.02); Immature Granulocytes % (auto) 0.2 %; Lymphocytes # (auto) 1.13 K/uL (1.2-3.4); Lymphocytes % (auto) 24.8 %; Mean Corpuscular Hemoglobin 33.3 pg (25-34); Mean Corpuscular Hgb Conc 33.6 g/dL (32-36); Mean Corpuscular Volume 99.2 fL (80-100); Mean Platelet Volume 9.4 fL (7.4-10.4); Monocytes # (auto) 0.55 K/uL (0.11-0.59); Monocytes % (auto) 12.1 %; Neutrophils % (auto) 59.1 %; Platelet Count 318 K/uL (130-400); RDW Standard Deviation 43.6 fL (36.4-46.3); Red Blood Count 3.57 M/uL (4.2-5.4); White Blood Count 4.56 K/uL (4.8-10.8)
[2019-01-07] MEDS: KETOROLAC TROMETHAMINE 15 MG/ML VIAL IV PRN ×3 (06:08→18:44)
[2019-01-07 07:02] LABS: Calcium 8.8 mg/dl (8.5-10.1); Creatinine Clr Calc Pharmacy 92.3 ml/min; Est GFR (African American) 116.9; Est GFR (Non-African American) 100.9; Potassium 4.3 mmol/L (3.5-5.1)
[2019-01-07] MEDS: PANTOprazole 40 MG TAB PO SCH (08:32)
[2019-01-07] MEDS: GABAPENTIN 400 MG CAP PO SCH ×2 (08:32→13:53)
[2019-01-07] MEDS: BACLOFEN 10 MG TAB PO SCH ×2 (08:32→20:31)
[2019-01-07] MEDS: LIDOCAINE 5% 1 PATCH TD SCH (08:33)
[2019-01-07] MEDS: CYANOCOBALAMIN 500 MCG TABLET (VITAMIN B-12) PO SCH (08:33)
[2019-01-07] MEDS ORDERED: LISINOPRIL 20 MG TAB PO SCH (09:00)
--- NOTE | 2019-01-07 12:38 | Hospitalist Progress Note ---
Date of Service January 07, 2019 Assessment & Plan (1) Flank pain: - C/o left abd pain with radiation to flank region/spine; was admitted in October 2018 for very similar issues, could not identify specific source for pain. - Has been evaluated by GI -- was possibly related to expansion of her liver from fat stretching the Julio César's capsule and innervating sensory nerves. - Has known thoracic cord lesion at T5-T6, unchanged on MRI in October; does have multilevel lumbar changes with severe stenosis at L4-L5 -- spinal issues could be leading to acute pain. - Evaluated by Dr. Rebolledo, plan for surgery following holiday season; she would also like to obtain a 2nd opinion with Dr. Chisholm - will consult as inpatient for evaluation. - U/a +leuk est and bacteria -- UC +E. coli; received IV abx in ER, will give Keflex x 2 days to complete course. - CT A/P and lumbar spine were negative on 01/06/19. - Continue home Baclofen 10 mg BID; increase Gabapentin to 400 mg in the morning/afternoon and 600 mg qhs, titrate as tolerated for pain control. Lidocaine patch on left lower back. - Toradol 15 mg IV q6hr prn -- has had improvement with doses of medication. (2) Hyponatremia: - Likely hypovolemic hyponatremia in setting of poor PO intake. - Received NS at 125 ml with improvement -- Na level was 137 this morning. - Monitor BMP daily. (3) Spinal cord lesion: - Pt. has known T2 hyperintense focus within posterior aspect of thoracic cord at T5-T6, initially diagnosed in October 2017 and referred to [facility]. - F/u MRI T-spine in October 2018 showed stable lesion. - Does have extensive multilevel changes arising from congenitally narrow spinal canal and mild epidural lipomatosis with severe canal stenosis at L4-L5 on MRI of L-spine -- has been evaluated by Dr. Rebolledo, was offered surgery as outpatient. - Consult Dr. Chisholm as inpatient as acute pain may be related to spine - pt. planned to obtain 2nd opinion with surgeon as outpt. (4) History of ETOH abuse: - Has abstained from ETOH for >3 months; did receive banana bag in ER. - CT A/P shows resolution of hepatic steatosis; LFTs are also WNL. (5) HTN (hypertension): - BP has been intermittently -- holding home Lisinopril. (6) GERD (gastroesophageal reflux disease): - PPI qAM. (7) Hyperlipemia: - Not currently on statin; holding home fish oil. (8) History of pancreatitis: - H/o chronic pancreatitis in setting of ETOH abuse. - No evidence of acute symptoms at this time, lipase level WNL. (9) Hypothyroidism: - Continue Synthroid as prescribed. - Most recent TSH was 8.82 in October, will repeat level in AM. (10) Screen for STD (sexually transmitted disease): - Pt. has requested STD testing -- reports being with the same partner for 14 yrs but has not been evaluated by a supervisor fishing. - Chlamydia and gonorrhea via urine, HIV test pending; recent Hepatitis panel all negative in October 2018. (11) DVT prophylaxis: - SCDs; Heparin q12hr. Dispo: Med/surg with tele for evaluation of left abd pain/flank pain. Discharge home pending improvement in pain control. PT/OT evaluation ordered. Supervising Physician Co-Signing Physician Notes PA Supervision Note: I did not personally see or examine the patient today, but I verified all osman points of [place]IA Nails's assessment and plan with the following exceptions/additions: None Subjective Pt. reports left sided abd pain, located directly under left breast with radiation to the left flank region and spine. Pain started last Sun and has persisted over last few days. Pain is constant but is improved with Toradol IV dosing. Described as a burning sensation. When asked if pain is similar to previous admission in October 2018, pt. reports she cannot recall being here during the last admission. Denies chest pain, SOB, nausea/vomiting, diarrhea or constipation. She has a very mild sam rash noted on left abdomen, significantly improved compared to last admission. She has not had ETOH since being discharged from hospital in October 2018; LFTs are WNL and CT showed improvement in hepatic steatosis. Review of Systems Review of Systems: All systems reviewed & are unremarkable except as noted in HPI & below Constitutional: no fever, no chills, no fatigue, no weakness and no anorexia Respiratory: no cough, no dyspnea, no dyspnea on exertion and no wheezing Cardiovascular: no chest pain, no palpitations, no lightheadedness and no edema Gastrointestinal: + abdominal pain; no nausea, no vomiting, no constipation and no diarrhea/loose stools Genitourinary: no dysuria, no urinary frequency and no hematuria Musculoskeletal: + back pain and + radicular pain; no joint pain Integumentary: no rash and no non-healing lesions Neurologic: no unsteadiness and no localized weakness Physical Exam Physical Exam: General: Resting comfortably HEENT: NC/AT; PERRLA with EOMI; [place] conjunctiva, MMM. Cardiac: RRR Lungs: CTA bilaterally Abdomen: Mild distention; Bowel normoactive X 4; Tenderness to light palpation over left abdomen extending into left flank region. Back: Non tender to light palpation over thoracic and lumbar spine. Extremities: Warm. No edema present Neuro: No focal weakness Skin: Very mild sam appearing rash noted over left abdomen. Results & Data Vital Signs (Past 12 Hours) Vital Signs Temp Pulse Resp BP Pulse Ox 01/07/19 07:28 36.4 C L 82 16 104/69 97 Laboratory Results 01/07/19 01/07/19 01/06/19 Range/Units 05:42 05:42 12:56 WBC 4.56 L (4.8-10.8) K/uL RBC 3.57 L (4.2-5.4) M/uL Hgb 11.9 L (12.0-16.0) g/dL Hct 35.4 L (37-47) % MCV 99.2 (80-100) fL MCH 33.3 (25-34) pg MCHC 33.6 (32-36) g/dL RDW Std Deviation 43.6 (36.4-46.3) fL RDW Coeff of Citlaly 12.0 (11.5-14.5) % Plt Count 318 (130-400) K/uL MPV 9.4 (7.4-10.4) fL Immature Gran % (Auto) 0.2 % Neut % (Auto) 59.1 % Lymph % (Auto) 24.8 % [place] % (Auto) 12.1 % Eos % (Auto) 3.1 % Baso % (Auto) 0.7 % Immature Gran # (Auto) 0.01 (0.00-0.02) K/uL Neut # (Auto) 2.70 (1.4-6.5) K/uL Lymph # (Auto) 1.13 L (1.2-3.4) K/uL [place] # (Auto) 0.55 (0.11-0.59) K/uL Eos # (Auto) 0.14 (0-0.5) K/uL Baso # (Auto) 0.03 (0-0.2) K/uL Sodium 137 D (136-145) mmol/L Potassium 4.3 (3.5-5.1) mmol/L Chloride 108 H (98-107) mmol/L Carbon Dioxide 23 (21-32) mmol/L Anion Gap 6.0 (3-11) BUN 8 (7-18) mg/dl Creatinine 0.66 (0.6-1.2) mg/dl Est Cr Clr Drug Dosing 92.3 ml/min Est GFR ( Amer) 116.9 Est GFR (Non-Af Amer) 100.9 BUN/Creatinine Ratio 12.0 (10-20) Glucose 85 (70-99) mg/dl Calcium 8.8 (8.5-10.1) mg/dl Phosphorus (2.5-4.9) mg/dl Magnesium (1.8-2.4) mg/dl Total Bilirubin (0.2-1) mg/dl Direct Bilirubin (0-0.2) mg/dl AST (15-37) U/L ALT (12-78) U/L Alkaline Phosphatase (45-117) U/L Total Protein (6.4-8.2) gm/dl Albumin (3.4-5.0) gm/dl Urine Color Yellow Urine Appearance Clear (Clear) Urine pH 6.5 (4.5-7.5) Ur Specific [place] 1.025 (1.000-1.030) Urine Protein Negative (Negative) Urine Glucose (UA) Negative (Negative) Urine Ketones Negative (Negative) Urine Blood Negative (Negative) Urine Nitrite Negative (Negative) Urine Bilirubin Negative (Negative) Urine Urobilinogen Negative (Negative) Ur Leukocyte Esterase 1+ H (Negative) Urine WBC (Auto) 10-30 H (0-5) /hpf Urine RBC (Auto) 0-4 (0-4) /hpf U Hyaline Cast (Auto) 0 (0-5) /lpf U Epithel Cells (Auto) 10-20 H (0-5) /lpf Urine Bacteria (Auto) 4+ H (Negative) 01/06/19 01/06/19 Range/Units 11:05 11:05 WBC (4.8-10.8) K/uL RBC (4.2-5.4) M/uL Hgb (12.0-16.0) g/dL Hct (37-47) % MCV (80-100) fL MCH (25-34) pg MCHC (32-36) g/dL RDW Std Deviation (36.4-46.3) fL RDW Coeff of Citlaly (11.5-14.5) % Plt Count (130-400) K/uL MPV (7.4-10.4) fL Immature Gran % (Auto) % Neut % (Auto) % Lymph % (Auto) % [place] % (Auto) % Eos % (Auto) % Baso % (Auto) % Immature Gran # (Auto) (0.00-0.02) K/uL Neut # (Auto) (1.4-6.5) K/uL Lymph # (Auto) (1.2-3.4) K/uL [place] # (Auto) (0.11-0.59) K/uL Eos # (Auto) (0-0.5) K/uL Baso # (Auto) (0-0.2) K/uL Sodium (136-145) mmol/L Potassium (3.5-5.1) mmol/L Chloride (98-107) mmol/L Carbon Dioxide (21-32) mmol/L Anion Gap (3-11) BUN (7-18) mg/dl Creatinine (0.6-1.2) mg/dl Est Cr Clr Drug Dosing ml/min Est GFR ( Amer) Est GFR (Non-Af Amer) BUN/Creatinine Ratio (10-20) Glucose (70-99) mg/dl Calcium (8.5-10.1) mg/dl Phosphorus 4.9 (2.5-4.9) mg/dl Magnesium 1.8 (1.8-2.4) mg/dl Total Bilirubin 0.5 (0.2-1) mg/dl Direct Bilirubin 0.1 (0-0.2) mg/dl AST 22 (15-37) U/L ALT 21 (12-78) U/L Alkaline Phosphatase 64 (45-117) U/L Total Protein 8.6 H (6.4-8.2) gm/dl Albumin 4.1 (3.4-5.0) gm/dl Urine Color Urine Appearance (Clear) Urine pH (4.5-7.5) Ur Specific [place] (1.000-1.030) Urine Protein (Negative) Urine Glucose (UA) (Negative) Urine Ketones (Negative) Urine Blood (Negative) Urine Nitrite (Negative) Urine Bilirubin (Negative) Urine Urobilinogen (Negative) Ur Leukocyte Esterase (Negative) Urine WBC (Auto) (0-5) /hpf Urine RBC (Auto) (0-4) /hpf U Hyaline Cast (Auto) (0-5) /lpf U Epithel Cells (Auto) (0-5) /lpf Urine Bacteria (Auto) (Negative) PG Care Time/CCT Total # of Minutes Spent Total Time Spent with Patient: Total time spent is greater than 50% in coordination of care (as documented) at patient's floor/unit and/or counseling patient: (1) Hyperlipemia Hyperlipidemia type: unspecified Qualified Code(s): E78.5 - Hyperlipidemia, unspecified (2) Hypothyroidism Hypothyroidism type: unspecified Qualified Code(s): E03.9 - Hypothyroidism, unspecified (3) GERD (gastroesophageal reflux disease) Esophagitis presence: esophagitis presence not specified Qualified Code(s): K21.9 - Gastro-esophageal reflux disease without esophagitis (4) HTN (hypertension) Hypertension type: essential hypertension Qualified Code(s): I10 - Essential (primary) hypertension
[2019-01-07] MEDS: cephALEXin 500 MG CAP PO SCH ×2 (17:53→20:30)
[2019-01-07] MEDS: GABAPENTIN 600 MG TAB PO SCH (20:31)
[2019-01-07] MEDS: HEPARIN SOD 5,000 UNIT/0.5 ML VIAL SQ SCH (20:32)
[2019-01-08] MEDS: KETOROLAC TROMETHAMINE 15 MG/ML VIAL IV PRN ×4 (00:48→21:21)
[2019-01-08 05:28] LABS: Hematocrit (blood only) 34.3 % (37-47); Hemoglobin 11.7 g/dL (12.0-16.0); Mean Corpuscular Hemoglobin 33.3 pg (25-34); Mean Corpuscular Hgb Conc 34.1 g/dL (32-36); Mean Corpuscular Volume 97.7 fL (80-100); Mean Platelet Volume 10.5 fL (7.4-10.4); Platelet Count 282 K/uL (130-400); RDW Coefficient of Variation 12.1 % (11.5-14.5); RDW Standard Deviation 43.1 fL (36.4-46.3); Red Blood Count 3.51 M/uL (4.2-5.4); White Blood Count 4.15 K/uL (4.8-10.8)
[2019-01-08 05:57] LABS: Alanine Aminotransferase 16 U/L (12-78); Albumin Level 3.2 gm/dl (3.4-5.0); Aspartate Aminotransferase 14 U/L (15-37); BUN Creatinine Ratio 14.1 (10-20); Bilirubin Direct < 0.1 mg/dl (0-0.2); Blood Urea Nitrogen 9 mg/dl (7-18); Carbon Dioxide 23 mmol/L (21-32); Chloride 99 mmol/L (98-107); Creatinine Clr Calc Pharmacy 90.9 ml/min; Est GFR (African American) 116.3; Est GFR (Non-African American) 100.4; Glucose 98 mg/dl (70-99); Potassium 4.1 mmol/L (3.5-5.1); Sodium 131 mmol/L (136-145)
[2019-01-08] MEDS: LEVOTHYROXINE SODIUM 125 MCG TABLET PO SCH (06:00)
[2019-01-08] MEDS: GABAPENTIN 400 MG CAP PO SCH ×2 (06:00→14:14)
[2019-01-08 06:20] LABS: Alkaline Phosphatase 66 U/L (45-117); Bilirubin,Total 0.2 mg/dl (0.2-1); Total Protein 6.8 gm/dl (6.4-8.2)
[2019-01-08] MEDS: BACLOFEN 10 MG TAB PO SCH ×2 (08:27→21:21)
[2019-01-08] MEDS: PANTOprazole 40 MG TAB PO SCH (08:27)
[2019-01-08] MEDS: cephALEXin 500 MG CAP PO SCH ×3 (08:27→21:21)
[2019-01-08] MEDS: CYANOCOBALAMIN 500 MCG TABLET (VITAMIN B-12) PO SCH (08:28)
[2019-01-08] MEDS: LIDOCAINE 5% 1 PATCH TD SCH ×2 (08:28→15:36)
[2019-01-08] MEDS: HEPARIN SOD 5,000 UNIT/0.5 ML VIAL SQ SCH ×2 (08:29→21:25)
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
--- NOTE | 2019-01-08 12:10 | Hospitalist Progress Note ---
Date of Service January 08, 2019 Assessment & Plan (1) Flank pain: - Left abd pain with radiation to flank region/spine, no improvement over last 24 hours; was admitted in October 2018 for very similar issues, could not identify specific source for pain. - Has been evaluated by GI -- was possibly related to expansion of her liver from fat stretching the Julio César's capsule and innervating sensory nerves. - Has known thoracic cord lesion at T5-T6 & multilevel lumbar changes with severe stenosis at L4-L5 -- consulted ortho spine, spinal issues are not likely contributing to acute pain. - UC +E. coli; will complete 3 day course of Keflex. - CT A/P and lumbar spine were negative on 01/06/19. - Continue home Baclofen 10 mg BID; increased Gabapentin to 400 mg in the morning/afternoon and 600 mg qhs on 01/07/19. Lidocaine patch on left lower back. - Toradol 15 mg IV q6hr prn -- has been using medication frequently. - Will consult pain management for evaluation -- previously consulted during last admission in October. (2) Hyponatremia: - Likely hypovolemic hyponatremia in setting of poor PO intake. - Received NS with improvement; Na level was improving, is now trending back do wn. - Monitor BMP daily. (3) Spinal cord lesion: - Pt. has known T2 hyperintense focus within posterior aspect of thoracic cord at T5-T6, initially diagnosed in October 2017 and referred to [facility]. - F/u MRI T-spine in October 2018 showed stable lesion. - Does have extensive multilevel changes arising from congenitally narrow spinal canal and mild epidural lipomatosis with severe canal stenosis at L4-L5 on MRI of L-spine -- has been evaluated by Dr. Rebolledo, was offered surgery as outpatient. - Consulted Dr. Chisholm as inpatient for second opinion & to evaluate if acute pain is related to spine -- acute issues are not likely contributing to abd/flank pain. (4) History of ETOH abuse: - Has abstained from ETOH for >3 months; s/p banana bag in ER. - CT A/P shows resolution of hepatic steatosis; LFTs are WNL. (5) HTN (hypertension): - BP has been intermittently low -- holding home Lisinopril. (6) GERD (gastroesophageal reflux disease): - PPI qAM. (7) Hyperlipemia: - Not currently on statin; holding home fish oil. (8) History of pancreatitis: - H/o chronic pancreatitis in setting of ETOH abuse. - No evidence of acute symptoms at this time, lipase level was WNL. (9) Hypothyroidism: - Continue Synthroid as prescribed. - TSH is 2.32. (10) Screen for STD (sexually transmitted disease): - Pt. requested STD testing. - Chlamydia and gonorrhea via urine pending; HIV test negative. Recent Hepatitis panel also negative. (11) DVT prophylaxis: - SCDs; Heparin q12hr. Dispo: Med/surg for left abd pain/flank pain. Will consult pain management due to persistent left abd/flank pain. Supervising Physician Co-Signing Physician Notes PA Supervision Note: I did not personally see or examine the patient today, but I verified all osman points of DELIA Naisl's assessment and plan with the following exceptions/additions: None Subjective Pt. has persistent left sided abd pain with radiation to the left flank and spinal region. She rates pain as a 7/10 on pain scale, has been using Toradol IV prn pain. No improvement following increase in Gabapentin dose. Denies chest pain, SOB, constipation (had diarrhea yesterday throughout the day), dysuria or hematuria, urinary frequency. Pt. would like to remain in the hospital for one more evening due to persistent pain. Review of Systems Review of Systems: All systems reviewed & are unremarkable except as noted in HPI & below Constitutional: no fever, no chills, no fatigue, no weakness and no anorexia Respiratory: no cough, no dyspnea, no dyspnea on exertion and no wheezing Cardiovascular: no chest pain, no palpitations and no edema Gastrointestinal: + abdominal pain and + diarrhea/loose stools; no nausea and no vomiting Genitourinary: no dysuria, no difficulty urinating, no urinary frequency and no hematuria Musculoskeletal: + back pain; no joint pain Integumentary: no rash Physical Exam Physical Exam: General: Resting comfortably, no acute distress. HEENT: NC/AT; PERRLA with EOMI; Logan conjunctiva, MMM. Cardiac: RRR Lungs: CTA bilaterally Abdomen: Bowel normoactive X 4; Tenderness to light palpation over left abdomen and left flank region. Back: Non tender to light palpation over lower spine. Extremities: Warm. No edema present Neuro: No focal weakness Skin: Mild sam appearing rash noted over left abdomen, improving. Results & Data Vital Signs (Past 12 Hours) Vital Signs Temp Pulse Resp BP Pulse Ox 01/08/19 07:38 37 C 73 14 126/84 99 Laboratory Results 01/08/19 01/08/19 01/08/19 Range/Units 04:37 04:37 04:37 WBC 4.15 L (4.8-10.8) K/uL RBC 3.51 L (4.2-5.4) M/uL Hgb 11.7 L (12.0-16.0) g/dL Hct 34.3 L (37-47) % MCV 97.7 (80-100) fL MCH 33.3 (25-34) pg MCHC 34.1 (32-36) g/dL RDW Std Deviation 43.1 (36.4-46.3) fL RDW Coeff of Citlaly 12.1 (11.5-14.5) % Plt Count 282 (130-400) K/uL MPV 10.5 H (7.4-10.4) fL Sodium 131 L (136-145) mmol/L Potassium 4.1 (3.5-5.1) mmol/L Chloride 99 (98-107) mmol/L Carbon Dioxide 23 (21-32) mmol/L Anion Gap 8.0 (3-11) BUN 9 (7-18) mg/dl Creatinine 0.67 (0.6-1.2) mg/dl Est Cr Clr Drug Dosing 90.9 ml/min Est GFR ( Amer) 116.3 Est GFR (Non-Af Amer) 100.4 BUN/Creatinine Ratio 14.1 (10-20) Glucose 98 (70-99) mg/dl Calcium 9.0 (8.5-10.1) mg/dl Total Bilirubin 0.2 (0.2-1) mg/dl Direct Bilirubin < 0.1 (0-0.2) mg/dl AST 14 L (15-37) U/L ALT 16 (12-78) U/L Alkaline Phosphatase 66 (45-117) U/L Total Protein 6.8 D (6.4-8.2) gm/dl Albumin 3.2 L (3.4-5.0) gm/dl TSH 2.320 (0.300-4.500) uIu/ml C.trachomatis RNA HIV 1&2 Ab/P24 Ag 4thGn Neg (Neg) N.gonorrhoeae RNA 01/08/19 Range/Units 00:40 WBC (4.8-10.8) K/uL RBC (4.2-5.4) M/uL Hgb (12.0-16.0) g/dL Hct (37-47) % MCV (80-100) fL MCH (25-34) pg MCHC (32-36) g/dL RDW Std Deviation (36.4-46.3) fL RDW Coeff of Citlaly (11.5-14.5) % Plt Count (130-400) K/uL MPV (7.4-10.4) fL Sodium (136-145) mmol/L Potassium (3.5-5.1) mmol/L Chloride (98-107) mmol/L Carbon Dioxide (21-32) mmol/L Anion Gap (3-11) BUN (7-18) mg/dl Creatinine (0.6-1.2) mg/dl Est Cr Clr Drug Dosing ml/min Est GFR ( Amer) Est GFR (Non-Af Amer) BUN/Creatinine Ratio (10-20) Glucose (70-99) mg/dl Calcium (8.5-10.1) mg/dl Total Bilirubin (0.2-1) mg/dl Direct Bilirubin (0-0.2) mg/dl AST (15-37) U/L ALT (12-78) U/L Alkaline Phosphatase (45-117) U/L Total Protein (6.4-8.2) gm/dl Albumin (3.4-5.0) gm/dl TSH (0.300-4.500) uIu/ml C.trachomatis RNA Pending HIV 1&2 Ab/P24 Ag 4thGn (Neg) N.gonorrhoeae RNA Pending PG Care Time/CCT Total # of Minutes Spent Total Time Spent with Patient: Total time spent is greater than 50% in coordination of care (as documented) at patient's floor/unit and/or counseling patient: (1) Hyperlipemia Hyperlipidemia type: unspecified Qualified Code(s): E78.5 - Hyperlipidemia, unspecified (2) Hypothyroidism Hypothyroidism type: unspecified Qualified Code(s): E03.9 - Hypothyroidism, unspecified (3) GERD (gastroesophageal reflux disease) Esophagitis presence: esophagitis presence not specified Qualified Code(s): K21.9 - Gastro-esophageal reflux disease without esophagitis (4) HTN (hypertension) Hypertension type: essential hypertension Qualified Code(s): I10 - Essential (primary) hypertension
[2019-01-08] MEDS: GABAPENTIN 600 MG TAB PO SCH (21:21)
[2019-01-08] MEDS: ZOLPIDEM TARTRATE 5 MG TAB PO PRN (21:21)
[2019-01-09 05:08] LABS: Hematocrit (blood only) 33.6 % (37-47); Hemoglobin 11.7 g/dL (12.0-16.0); Mean Corpuscular Hemoglobin 33.2 pg (25-34); Mean Corpuscular Hgb Conc 34.8 g/dL (32-36); Mean Corpuscular Volume 95.5 fL (80-100); Mean Platelet Volume 9.7 fL (7.4-10.4); Platelet Count 310 K/uL (130-400); RDW Coefficient of Variation 11.9 % (11.5-14.5); RDW Standard Deviation 41.1 fL (36.4-46.3); Red Blood Count 3.52 M/uL (4.2-5.4); White Blood Count 4.22 K/uL (4.8-10.8)
[2019-01-09 05:25] LABS: Calcium 8.8 mg/dl (8.5-10.1); Creatinine Clr Calc Pharmacy 99.8 ml/min; Est GFR (Non-African American) 103.5; Potassium 4.5 mmol/L (3.5-5.1)
[2019-01-09] MEDS: KETOROLAC TROMETHAMINE 15 MG/ML VIAL IV PRN ×2 (06:17→12:39)
[2019-01-09] MEDS: LEVOTHYROXINE SODIUM 125 MCG TABLET PO SCH (06:17)
[2019-01-09] MEDS: GABAPENTIN 400 MG CAP PO SCH ×2 (06:17→13:18)
[2019-01-09] MEDS ORDERED: SODIUM CHLORIDE 0.9% 1000ML 1,000 ML IV SCH (08:15)
[2019-01-09] MEDS: BACLOFEN 10 MG TAB PO SCH ×2 (08:27→21:22)
[2019-01-09] MEDS: PANTOprazole 40 MG TAB PO SCH (08:28)
[2019-01-09] MEDS: CYANOCOBALAMIN 500 MCG TABLET (VITAMIN B-12) PO SCH (08:28)
[2019-01-09] MEDS: cephALEXin 500 MG CAP PO SCH ×2 (08:28→13:18)
[2019-01-09] MEDS: HEPARIN SOD 5,000 UNIT/0.5 ML VIAL SQ SCH ×2 (08:30→21:23)
[2019-01-09] MEDS: LIDOCAINE 5% 1 PATCH TD SCH (08:33)
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
[2019-01-09 13:25] LABS: Chlamydia Trach RNA NOT DETECTED (NOT DETECTED); GC (Neis gonorrhoeae) RNA NOT DETECTED (NOT DETECTED)
[2019-01-09] MEDS ORDERED: GABAPENTIN 100 MG CAP PO ONE (14:45)
[2019-01-09 16:37] LABS: BUN Creatinine Ratio 11.2 (10-20); Calcium 8.7 mg/dl (8.5-10.1); Creatinine Clr Calc Pharmacy 84.6 ml/min; Est GFR (African American) 110.8; Est GFR (Non-African American) 95.6; Potassium 4.2 mmol/L (3.5-5.1)
--- NOTE | 2019-01-09 17:02 | Hospitalist Progress Note ---
Date of Service January 09, 2019 Assessment & Plan (1) Flank pain: - Left abd pain with radiation to flank region/spine, mild improvement over last 24 hours; was admitted in October 2018 for very similar issues, could not identify specific source for pain. - Has been evaluated by GI -- was possibly related to expansion of her liver from fat stretching the Julio César's capsule and innervating sensory nerves. - Has known thoracic cord lesion & multilevel lumbar changes with severe stenosis at L4-L5 -- consulted ortho spine, spinal issues are not likely contributing to acute pain. - UC +E. coli; completed Keflex x [address] days[address] - [address] A/P and lumbar spine were negative on 01/06/19. - Continue home Baclofen 10 mg BID; increase Gabapentin to 600 mg TID. - D/c Toradol due to possible SIADH; will start Percocet q6hr prn acute pain. - Consulted pain management -- pain may be related to thoracic spine changes based on location. Recommend follow up to discuss thoracic JANETH. (2) Hyponatremia: - Initially thought to be hypovolemic hyponatremia as Na responded to IV fluids on admission. - Na level trended down over last 24 hours -- urine studies c/w SIADH (?possibly NSAID induced) - TSH and AM Cortisol level both WNL. - D/c IV fluids and start an 1200 cc fluid restriction. - Monitor Na level closely overnight; consider addition of NaCl tablets TID if no improvement. (3) Spinal cord lesion: - Pt. has known T2 hyperintense focus within posterior aspect of thoracic cord at T5-T6, [facility] diagnosed in October [facility] - F/u MRI T-spine in October 2018 showed stable lesion. - Does have extensive multilevel changes arising from congenitally narrow spinal canal and mild epidural lipomatosis with severe canal stenosis at L4-L5 on MRI of L-spine -- has been evaluated by Dr. Rebolledo, was offered surgery as outpatient. - Consulted Dr. Chisholm as inpatient for second opinion & to evaluate if acute pain is related to spine -- acute issues are not likely contributing to abd/flank pain. - Pt. will need f/u appt with Dr. Rebolledo at discharge to discuss scheduling surgery. (4) History of ETOH abuse: - Has abstained from ETOH for >3 months. - CT A/P shows resolution of hepatic steatosis; LFTs are WNL. (5) HTN (hypertension): - Holding home Lisinopril. (6) GERD (gastroesophageal reflux disease): - PPI qAM. (7) Hyperlipemia: - Not currently on statin; holding home fish oil. (8) History of pancreatitis: - H/o chronic pancreatitis in setting of ETOH abuse. - No evidence of acute symptoms at this time, lipase level was WNL. (9) Hypothyroidism: - Continue Synthroid as prescribed. - TSH is 2.32. (10) Screen for STD (sexually transmitted disease): - Pt. requested STD testing. - Chlamydia and gonorrhea via urine pending; HIV test negative. Recent Hepatitis panel also negative. (11) DVT prophylaxis: - SCDs; Heparin q12hr. Dispo: Med/surg for left abd pain/flank pain. Discharge pending pain control and improvement in hyponatremia. Supervising Physician Co-Signing Physician Notes PA Supervision Note: I did not personally see or examine the patient today, but I verified all osman points of DELIA Nails's assessment and plan with the following exceptions/additions: None Subjective Pt. reports left abd/flank pain is a 6/10 today. She has not had a BM in 2 days. Is eating/drinking well. Review of Systems Review of Systems: All systems reviewed & are unremarkable except as noted in HPI & below Constitutional: no fever, no chills, no fatigue, no weakness and no anorexia Respiratory: no cough, no dyspnea, no dyspnea on exertion and no wheezing Cardiovascular: no chest pain, no palpitations and no edema Gastrointestinal: + abdominal pain and + constipation; no nausea and no vomiting Genitourinary: no difficulty urinating Musculoskeletal: + back pain; no joint pain Integumentary: no non-healing lesions Physical Exam Physical Exam: General: Resting comfortably, no acute distress. HEENT: NC/AT; PERRLA with EOMI; Ozone conjunctiva, MMM. Cardiac: RRR Lungs: CTA bilaterally Abdomen: Bowel normoactive X 4; Tenderness to light palpation over left abdomen and left flank region, improving overall. Extremities: Warm. No edema present Neuro: No focal weakness Skin: Rash on abdomen resolving. Results & Data Vital Signs (Past 12 Hours) Vital Signs Temp Pulse Resp BP Pulse Ox 01/09/19 15:21 36.6 C 70 17 151/92 H 100 01/09/19 07:18 36.7 C 65 15 122/81 97 Laboratory Results 01/09/19 01/09/19 01/09/19 Range/Units 15:58 10:14 10:14 WBC (4.8-10.8) K/uL RBC (4.2-5.4) M/uL Hgb (12.0-16.0) g/dL Hct (37-47) % MCV (80-100) fL MCH (25-34) pg MCHC (32-36) g/dL RDW Std Deviation (36.4-46.3) fL RDW Coeff of Citlaly (11.5-14.5) % Plt Count (130-400) K/uL MPV (7.4-10.4) fL Sodium 125 L (136-145) mmol/L Potassium 4.2 (3.5-5.1) mmol/L Chloride 95 L (98-107) mmol/L Carbon Dioxide 24 (21-32) mmol/L Anion Gap 6.0 (3-11) BUN 8 (7-18) mg/dl Creatinine 0.72 (0.6-1.2) mg/dl Est Cr Clr Drug Dosing 84.6 ml/min Est GFR ( Amer) 110.8 Est GFR (Non-Af Amer) 95.6 BUN/Creatinine Ratio 11.2 (10-20) Glucose 97 (70-99) mg/dl Osmolality (280-300) mOsm/kg Calcium 8.7 (8.5-10.1) mg/dl Cortisol AM Sample (4.3-22.4) mcg/dl Urine Osmolality 468 L (500-800) mOsm/kg Ur Random Sodium 104 mmol/L C.trachomatis RNA (NOT DETECTED) N.gonorrhoeae RNA (NOT DETECTED) 01/09/19 01/09/19 01/09/19 Range/Units 08:29 08:29 04:35 WBC 4.22 L (4.8-10.8) K/uL RBC 3.52 L (4.2-5.4) M/uL Hgb 11.7 L (12.0-16.0) g/dL Hct 33.6 L (37-47) % MCV 95.5 (80-100) fL MCH 33.2 (25-34) pg MCHC 34.8 (32-36) g/dL RDW Std Deviation 41.1 (36.4-46.3) fL RDW Coeff of Citlaly 11.9 (11.5-14.5) % Plt Count 310 (130-400) K/uL MPV 9.7 (7.4-10.4) fL Sodium (136-145) mmol/L Potassium (3.5-5.1) mmol/L Chloride (98-107) mmol/L Carbon Dioxide (21-32) mmol/L Anion Gap (3-11) BUN (7-18) mg/dl Creatinine (0.6-1.2) mg/dl Est Cr Clr Drug Dosing ml/min Est GFR ( Amer) Est GFR (Non-Af Amer) BUN/Creatinine Ratio (10-20) Glucose (70-99) mg/dl Osmolality 267 L (280-300) mOsm/kg Calcium (8.5-10.1) mg/dl Cortisol AM Sample 9.88 (4.3-22.4) mcg/dl Urine Osmolality (500-800) mOsm/kg Ur Random Sodium mmol/L C.trachomatis RNA (NOT DETECTED) N.gonorrhoeae RNA (NOT DETECTED) 01/09/19 01/08/19 Range/Units 04:35 00:40 WBC (4.8-10.8) K/uL RBC (4.2-5.4) M/uL Hgb (12.0-16.0) g/dL Hct (37-47) % MCV (80-100) fL MCH (25-34) pg MCHC (32-36) g/dL RDW Std Deviation (36.4-46.3) fL RDW Coeff of Citlaly (11.5-14.5) % Plt Count (130-400) K/uL MPV (7.4-10.4) fL Sodium 129 L (136-145) mmol/L Potassium 4.5 (3.5-5.1) mmol/L Chloride 98 (98-107) mmol/L Carbon Dioxide 25 (21-32) mmol/L Anion Gap 6.0 (3-11) BUN 10 (7-18) mg/dl Creatinine 0.61 (0.6-1.2) mg/dl Est Cr Clr Drug Dosing 99.8 ml/min Est GFR ( Amer) 120.0 Est GFR (Non-Af Amer) 103.5 BUN/Creatinine Ratio 17.0 (10-20) Glucose 102 H (70-99) mg/dl Osmolality (280-300) mOsm/kg Calcium 8.8 (8.5-10.1) mg/dl Cortisol AM Sample (4.3-22.4) mcg/dl Urine Osmolality (500-800) mOsm/kg Ur Random Sodium mmol/L C.trachomatis RNA NOT DETECTED (NOT DETECTED) N.gonorrhoeae RNA NOT DETECTED (NOT DETECTED) PG Care Time/CCT Total # of Minutes Spent Total Time Spent with Patient: Total time spent is greater than 50% in coordination of care (as documented) at patient's floor/unit and/or counseling patient: (1) Hyperlipemia Hyperlipidemia type: unspecified Qualified Code(s): E78.5 - Hyperlipidemia, unspecified (2) Hypothyroidism Hypothyroidism type: unspecified Qualified Code(s): E03.9 - Hypothyroidism, unspecified (3) GERD (gastroesophageal reflux disease) Esophagitis presence: esophagitis presence not specified Qualified Code(s): K21.9 - Gastro-esophageal reflux disease without esophagitis (4) HTN (hypertension) Hypertension type: essential hypertension Qualified Code(s): I10 - Essential (primary) hypertension
[2019-01-09] MEDS: OXYCODONE/ACETAMINOPHEN 5mg/325mg TAB PO PRN ×2 (17:08→21:23)
[2019-01-09] MEDS: GABAPENTIN 600 MG TAB PO SCH (21:22)
[2019-01-09] MEDS: ZOLPIDEM TARTRATE 5 MG TAB PO PRN (21:23)
[2019-01-10] MEDS: LEVOTHYROXINE SODIUM 125 MCG TABLET PO SCH (05:21)
[2019-01-10 06:33] LABS: BUN Creatinine Ratio 16.1 (10-20); Calcium 9.3 mg/dl (8.5-10.1); Est GFR (African American) 114.6; Est GFR (Non-African American) 98.9
[2019-01-10] MEDS: OXYCODONE/ACETAMINOPHEN 5mg/325mg TAB PO PRN ×2 (07:50→16:29)
[2019-01-10] MEDS: BACLOFEN 10 MG TAB PO SCH (09:08)
[2019-01-10] MEDS: HEPARIN SOD 5,000 UNIT/0.5 ML VIAL SQ SCH (09:08)
[2019-01-10] MEDS: PANTOprazole 40 MG TAB PO SCH (09:08)
[2019-01-10] MEDS: GABAPENTIN 600 MG TAB PO SCH ×2 (09:09→14:27)
[2019-01-10] MEDS: CYANOCOBALAMIN 500 MCG TABLET (VITAMIN B-12) PO SCH (09:09)
[2019-01-10] MEDS: LIDOCAINE 5% 1 PATCH TD SCH (09:09)
--- NOTE | 2019-01-10 14:00 | Discharge Summary ---
Date of Service January 10, 2019 Admission HPI Per Admitting Provider 53yo C female with history of HLP, Anxiety, chronic pancreatitis, GERD presenting with left flank pain since last Sunday. Pain persistent, bandlike under left breast and around to back. Burning/prickly, severe 10/10. She has been using a heating pad and ice pack without relief. No rash. Chronic LBP with some LLE numbness and tingling. She has been seen by Ortho- Spine and has been discussing surgery - tentatively planned for after the holidays ER Course: Ceftriaxone, Folic acid, Morphine, Zofran, NSS, Thiamine Admission Exam Per Admitting Provider General: patient resting comfortably, NAD, non-toxic in appearance, AA&O x 4 Skin: warm, dry, intact, no rashes or lesions, dry/flaking skin on left side, no blisters/rash HEENT: NC/AT, PERRL, EOMI, anicteric sclera, conjunctiva without injection, external ear normal to inspection and nontender, nares patent, moist mucus membranes, dentition intact, no oropharyngeal lesions, neck supple, trachea midline, no LAD, no thyromegaly, no JVD Heart: +S1/S2, regular, no m/r/g Lungs: equal air entry bilaterally, no rales/rhonchi/wheezes Abd: +BS, soft, tender in LUQ, no rebound/guarding/peritoneal signs, no splenomegaly/ascites Ext: warm, 2+ pulses in UE/LE bilaterally, no clubbing/cyanosis or edema Neuro: nonfocal, patient AA&O x 4, speech intact, no facial droop, moving all extremities on command with equal strength 5/5 Principal Diagnosis Left abdominal/flank pain Discharge Exam General: Resting comfortably, no acute distress. HEENT: NC/AT; PERRLA with EOMI; Wilkinson conjunctiva, MMM. Cardiac: RRR Lungs: CTA bilaterally Abdomen: Bowel normoactive X 4; Very minimal tenderness to light palpation over left abd/flank region. Extremities: Warm. No edema present Neuro: No focal weakness Skin: no rash noted. Discharge Data Allergies Allergy/AdvReac Type Severity Reaction Status Date / Time Sulfa (Sulfonamide Allergy Intermediate Rash Unverified 01/06/19 11:40 Antibiotics) tramadol AdvReac Unknown NAUSEA Verified 01/06/19 11:40 Consultations 01/06/19 14:26 ED Decision to Admit Stat 01/07/19 16:22 Consult Orthopedic Surgery Routine 01/08/19 12:01 Consult Pain Management Routine Ordered Studies 01/06/19 11:19 CT abd pelvis IV con only Stat CT lumbar spine wo con Stat Hospital Course (1) Flank pain: Left abd pain with radiation to flank region/spine, mild improvement throughout this admission but pt. is not completely resolved. Admitted in October 2018 for very similar issues, could not identify specific source for pain. Has been evaluated by GI in past -- was possibly related to expansion of her liver from fat stretching the Julio César's capsule and innervating sensory nerves. Has known thoracic cord lesion & multilevel lumbar changes with severe stenosis at L4-L5 -- consulted ortho spine, spinal issues are not likely contributing to acute pain. UC +E. coli; completed Keflex x [address] A/P and lumbar spine were negative on 01/06/19. Continued home Baclofen 10 mg BID; increased Gabapentin to 600 mg TID, continue this dose at discharge. D/c'ed Toradol due to possible SIADH; started Percocet q4-6hr prn acute pain. Consulted pain management -- pain may be related to thoracic spine changes based on location. Will schedule follow up with pain management to discuss thoracic JANETH. (2) Hyponatremia: Initially thought to be hypovolemic hyponatremia as Na responded to IV fluids on admission. Na level trended down again, level decreased after re-starting IV fluids -- urine studies c/w SIADH (?possibly NSAID induced vs. pain induced) TSH and AM Cortisol level were both WNL. Started 1200 cc fluid restriction with improvement in Na levels - will continue fluid restriction of 1800 cc at discharge. Script provided for labs on Sat 01/11 and Mon 01/13 to monitor Na levels. Results will be faxed to PCP. F/u with PCP. (3) Spinal cord lesion: Pt. has known T2 hyperintense focus within posterior aspect of thoracic cord at T5-T6, initially diagnosed in October 2017 and referred to [facility]. F/u MRI T-spine in October 2018 showed stable lesion. Does have extensive multilevel changes arising from congenitally narrow spinal canal and mild epidural lipomatosis with severe canal stenosis at L4-L5 on MRI of L-spine -- has been evaluated by Dr. Rebolledo, was offered surgery as outpatient. Consulted Dr. Chisholm as inpatient for second opinion & to evaluate if acute pain is related to spine -- acute issues are not likely contributing to abd/flank pain. Pt. will need f/u appt with Dr. Rebolledo at discharge to discuss scheduling surgery. (4) History of ETOH abuse: Has abstained from ETOH for >[address] A/P shows resolution of hepatic steatosis; LFTs are WNL. (5) HTN (hypertension): Held home Lisinopril. BP was well controlled without addition of ACEI during this admission. Instructed to hold med at home and discuss with PCP. (6) GERD (gastroesophageal reflux disease): PPI qAM. (7) Hyperlipemia: Not currently on statin; held home fish oil, resume on discharge. (8) History of pancreatitis: H/o chronic pancreatitis in setting of ETOH abuse. No evidence of acute symptoms at this time, lipase level was WNL. (9) Hypothyroidism: Continued Synthroid as prescribed. TSH 2.32. (10) Screen for STD (sexually transmitted disease): Pt. requested STD testing. Chlamydia and gonorrhea via urine both negative; HIV test negative. Recent Hepatitis panel also negative. (11) DVT prophylaxis: SCDs; Heparin q12hr. Discharged to home on 01/10/19. Total Time Total Time Spent Total Time Spent (In Minutes): >30 minutes Total Time Includes: Examination of the Patient, Discharge Planning, Medication Reconciliation, Communication With Other Providers and Other Discharge Plan Discharge Items Patient Disposition: Home - Self-Care Reason For Visit: LEFT FLANK PAIN Discharge Diagnosis: Left Flank/Abdominal Pain Condition on Discharge: Fair Activity: As commented below Exercise/Sports: Gradually increase as tolerated Non-emergency contact: Primary Care Provider Call non-emergency contact if: you have any medication questions, your symptoms worsen, your pain is not controlled, your pain is worsening, your pain is unusual for you, your pain is concerning for you and you have a fever Follow-up/Referrals: [facility] [Provider Group] (Please, follow up at [facility]. *A rep from this office will call you with the appointment information. If you have any questions, call the office at [phone].) Eder Rebolledo DO [Physician] - 01/15/19 11:10 am (Please, follow up with Dr. Rebolledo on SundayJanuary 15 at 11:10 am. *If you need to change this appointment, call the office at [phone].) Tamika Ramirez CRNP [Primary Care Provider] - 01/16/19 10:00 am (Please, follow up at [facility] with Tamika EDWARDS on January 16 at 10:00 am. *If you need to change this appointment, call the office at [phone].) Diet: Heart Healthy Fluids: 1800ml (7 cups) Ambulatory Orders: Basic Metabolic Panel (Routine) Timeframe: 1 Day Location: Determined by Patient Ordered By: Vira Nails Basic Metabolic Panel (Routine) Timeframe: 3 Days Location: Determined by Patient Ordered By: Vira Nails Addtl Attending Provider Instructions: 1. Left Abdomen/Flank Pain * Gabapentin has been increased to 600 mg three times daily. * Please take Percocet 1 tablet every 4 hours as needed for acute pain. * An appointment will be scheduled with pain management to discuss an epidural injection. * An appointment will be scheduled with Dr. Rebolledo to discuss scheduling spinal surgery. 2. Low sodium level * Na level is now trending up after initiating a fluid restriction. Low sodium may be related to SIADH. * Please continue a 1800 mL fluid restriction at home. * A script was provided for lab work -- please have Na level monitored tomorrow and repeated on Sunday. Results will be faxed to your PCP. * You will need to follow up with PCP to discuss this hospitalization along with low sodium levels. 3. Thoracic spinal cord lesion * Please follow up with Dr. Rebolledo to discuss spinal surgery. * It is also recommended to follow up with [facility] neurosurgery. 4. History of ETOH abuse * Continue to avoid ETOH containing products -- liver changes noted on previous CT scan are now resolved and liver function tests are now within normal limits. 5. Hypertension * Please hold home Lisinopril -- your blood pressure has been fluctuating during this admission but is well controlled. * You will need to discuss resuming this medication with your primary care provider. Pending Studies at Discharge: No Stand-Alone Forms: My [facility] Medications and DC Order Prescriptions: New lidocaine 5 % Adhesive Patch,Medicated 1 patch transdermal QAM 10 Days Qty: 10 RF: 0 oxycodone-acetaminophen [Percocet] 5-325 mg tablet 1 tab PO Q4H Qty: 18 RF: 0 Continued nifedipine 30 mg tablet extended release 24hr 30 mg PO QAM PRN (Reason: circulation) RF: 0 omeprazole 20 mg capsule,delayed release(DR/EC) 20 mg PO QAM RF: 0 omega-3 fatty acids [Fish Oil Concentrate] 1,000 mg Capsule 1,000 mg PO QAM RF: 0 cyanocobalamin (vitamin B-12) [Vitamin B-12] 1,000 mcg Tablet 1,000 mcg PO QAM RF: 0 cholecalciferol (vitamin D3) [Vitamin D3] 1,000 unit Capsule 1,000 unit PO WK RF: 0 levothyroxine 125 mcg tablet 125 mcg PO QAM RF: 0 ibuprofen-diphenhydramine cit [Advil PM] 200-38 mg Tablet 2 cap PO UD PRN (Reason: Pain) RF: 0 baclofen 10 mg tablet 10 mg PO BID Qty: 60 RF: 0 Changed gabapentin 300 mg capsule 600 mg PO TID Qty: 180 RF: 0 Discontinued lisinopril 20 mg tablet 20 mg PO QAM RF: 0 Discharge Orders: Discharge Order (Routine); Ordered 01/10/19 Ordered By: Sailaja Lehman/Other Patient Handouts: Fluids Limiting Dc Admission Data Admit Date/Time: 01/06/19 15:37 Attending Provider: Sailaja Cunha Admit Provider: Fany Read Primary Care Provider: Tamika Ramirez Other Providers: Fany Read ; Buffy Lee ; Nigel Chisholm Other Interventions: Discharge Summary Assessment (RN) Last Done: 01/10/19 15:10 DC Date/Time DO NOT enter until pt leaves facility: 01/10/19 16:50 Supervising Physician Co-Signing Physician Notes PA Supervision Note: I personally saw and examined the patient. I verified all osman points and agree with DELIA Nails with the following exceptions and/or additions: Pain is improved with increased gabapentin and percocet but not resolved Located same exact spot as previous admission when I saw her, left flank and torso, burning, radiating pain. No rashes VSS General: Resting comfortably, no acute distress. HEENT: anicteric sclerae Cardiac: RRR Lungs: CTA bilaterally Abdomen: Bowel normoactive X 4; Very minimal tenderness to light palpation over left abd/flank region. Extremities: Warm. No edema present Neuro: No focal weakness Skin: no rash noted. Stable for dc to home and close f/u with pain amanagement BMP f/u as above for hyponatremia which may be SIADH related to pain
[2019-01-10 15:33] VITALS: BP 110/75; PULSE 85; TEMP 98.6; O2SAT 98
== END 2019-01-10 16:50 | disposition home or self-care (01) | DRG 392 ==
LOC: ED 10:29 → SUATTDRO 15:37 → 3E 16:00

== ENCOUNTER 2019-06-02 08:34 | Inpatient (IN) ==
[2019-06-02] MEDS ORDERED: DEXTROSE 50% 50 ML SYRINGE IV ONE (08:38)
[2019-06-02] MEDS ORDERED: MULTI-VITAMIN INFUSION 10 ML, THIAMINE HCL 100 MG, FOLIC ACID 1 MG in SODIUM CHLORIDE 0... IV ONE (08:43)
[2019-06-02] MEDS ORDERED: SODIUM CHLORIDE 0.9% 1000ML 1,000 ML IV SCH ×2 (08:45→11:48)
[2019-06-02 09:09] LABS: iSTAT Hemoglobin 15.6 g/dl (12.0-16.0); iSTAT Ionized Calcium 0.69 mmol/l (1.12-1.32); iSTAT Potassium 5.1 mmol/L (3.3-5.0)
[2019-06-02 09:29] LABS: Partial Thromboplastin Ratio 1.8; Prothrombin Time 64.7 Seconds (9.0-12.0)
[2019-06-02 09:32] LABS: Partial Thromboplastin Time 49.7 Seconds (21.0-31.0)
[2019-06-02 09:34] LABS: INR 6.8 (0.9-1.1)
[2019-06-02 09:39] LABS: Alanine Aminotransferase 1702 U/L (12-78); Albumin Globulin Ratio 0.9 (0.9-2); Albumin Level 3.6 gm/dl (3.4-5.0); BUN Creatinine Ratio 4.6 (10-20); Bilirubin,Total 7.3 mg/dl (0.2-1); Blood Urea Nitrogen 25 mg/dl (7-18); Calcium 7.1 mg/dl (8.5-10.1); Carbon Dioxide 15 mmol/L (21-32); Chloride 82 mmol/L (98-107); Est GFR (African American) 9.6; Est GFR (Non-African American) 8.3; Globulin 4.2 gm/dl (2.5-4.0); Glucose 29 mg/dl (70-99); Lipase 2391 U/L (73-393); Sodium 119 mmol/L (136-145); Total Protein 7.8 gm/dl (6.4-8.2); Troponin I 0.341 ng/ml (0-0.045)
[2019-06-02] MEDS ORDERED: THIAMINE HCL 100 MG in SYRINGE 9 ML IV STA (09:39)
[2019-06-02 09:43] LABS: Alkaline Phosphatase 227 U/L (45-117)
[2019-06-02] MEDS ORDERED: D5W AND NSS 1,000 ML IV SCH (09:45)
[2019-06-02 09:47] LABS: Appearance Urine Cloudy (Clear); Bacteria Urine Automated Negative (Negative); Blood Urine 3+ (Negative); Color Urine Dark Yellow; Epithelial Cell Urine Auto >30 /lpf (0-5); Glucose Urine UA Negative (Negative); Ketones Urine 1+ (Negative); Leukocyte Esterase Urine Trace (Negative); Nitrite Urine Positive (Negative); Protein Urine 2+ (Negative); Specific Gravity Urine 1.024 (1.000-1.030); Urobilinogen Urine Negative (Negative)
[2019-06-02 09:50] LABS: Bilirubin Urine 2+ (Negative); Ictotest Urine Positive (Negative)
[2019-06-02] MEDS ORDERED: PHYTONADIONE 10 MG in SODIUM CHLORIDE 0.9% 50 ML IV ONE (09:50)
[2019-06-02 09:57] LABS: Potassium 4.2 mmol/L (3.5-5.1)
[2019-06-02 10:00] LABS: Cast Urine Automated >30 /lpf (0-5)
--- NOTE | 2019-06-02 10:01 | CT Scan Report ---
CT head/brain wo con CLINICAL HISTORY: Acute change in mental status COMPARISON STUDY: MRI the brain performed October 2006 TECHNIQUE: Axial CT of the brain is performed from the vertex to the skull base. IV contrast was not administered for this examination. A dose lowering technique was utilized adhering to the principles of ALARA. CT DOSE: 1277.12 mGycm FINDINGS: No intra or extra-axial mass lesions are visualized. There is no CT evidence of acute cortical infarc tion. There is no evidence of midline shift. There is no acute hemorrhage. No calvarial fractures ar e visualized. There is no evidence of pathologic ventricular dilatation. There is no evidence of acute sinusitis IMPRESSION: No acute intracranial findings ACT 112: Negative or not required by law. Electronically signed by: Delvin Fisher M.D. 06/02/2019 10:00 AM
[2019-06-02 10:10] LABS: Amphetamines+Metham, Urine Neg (Neg); Barbiturates, Urine Neg (Neg); Benzodiazepine, Urine Neg (Neg); Cocaine, Urine Neg (Neg); MDMA (Ecstacy), Urine Neg (Neg); Methadone, Urine Neg (Neg); Opiate, Urine Neg (Neg); Phencyclidine, Urine Neg (Neg)
[2019-06-02] MEDS ORDERED: STAT IV Infusion **Titration per Protocol STA (10:14)
--- NOTE | 2019-06-02 10:19 | CT Scan Report ---
CT OF THE ABDOMEN AND PELVIS WITHOUT CONTRAST CLINICAL HISTORY: ARF (creat 6), pancreatitis, hyponatremia COMPARISON STUDY: CT of the abdomen and pelvis January 06, 2019. TECHNIQUE: Axial images of the abdomen and pelvis were obtained without IV contrast. Images were revi ewed in the axial, sagittal, and coronal planes. Automated exposure control was utilized for the artem dy. A dose lowering technique was utilized adhering to the principles of ALARA. FINDINGS: No pneumatosis, free air or portal venous gas is present. Evaluation of the abdomen and pel vis is suboptimal on this unenhanced exam. There is marked fatty infiltration of the liver. Unenhance d images of the spleen and adrenal glands are unremarkable. There is no hydronephrosis or hydroureter . No urinary calculi are identified. Bile within the gallbladder is hyperdense. There is a possible s mall stone within the gallbladder. There is no biliary ductal dilatation. No pancreatic ductal dilata tion is present. There are no peripancreatic fluid collections. There is mild infiltration adjacent t o the uncinate process of the pancreas. There is no evidence for a bowel obstruction. The appendix is normal. Mckinley balloon is present within the bladder which is collapsed. No suspicious osseous lesion s are noted. There is no lymphadenopathy. Chronic diverticulosis is noted without evidence for acute diverticulitis. IMPRESSION: 1. Mild infiltration adjacent to the uncinate process of the pancreas which suggests acute pancreatit is. No peripancreatic fluid collections. 2. Possible tiny calcified gallstone within the gallbladder. No biliary ductal dilatation. 3. Marked fatty infiltration of the liver. 4. No hydronephrosis. ACT 112: Negative or not required by law. Electronically signed by: Heber Lugo M.D. 06/02/2019 10:18 AM
[2019-06-02] MEDS: VASOPRESSIN 20 UNITS in 0.9 % SODIUM CHLORIDE 100 ML IV SCH ×2 (10:28→18:37)
--- NOTE | 2019-06-02 10:44 | XRay Report ---
XR chest 1V portable CLINICAL HISTORY: weakness COMPARISON STUDY: Chest radiograph October 23, 2017. FINDINGS: Lung volumes are normal. Linear left basilar opacity suggests atelectasis or scarring. Ther e is no pneumothorax or pleural effusion. Mild cardiomegaly is unchanged. Mediastinal contours are no rmal. There is no evidence for pulmonary edema. IMPRESSION: No acute cardiopulmonary findings. No change in appearance of the chest. ACT 112: Negative or not required by law. Electronically signed by: Heber Lugo M.D. 06/02/2019 10:42 AM
[2019-06-02 10:47] LABS: Magnesium 1.8 mg/dl (1.8-2.4)
[2019-06-02 10:48] LABS: T4 Free Thyroxine 0.97 ng/dl (0.8-1.6)
[2019-06-02 11:17] LABS: Basophils # (auto) 0.01 K/uL (0-0.2); Basophils % (auto) 0.2 %; Echinocytes 1+; Eosinophils # (auto) 0.01 K/uL (0-0.5); Eosinophils % (auto) 0.2 %; Hematocrit (blood only) 36.7 % (37-47); Hemoglobin 11.7 g/dL (12.0-16.0); Immature Granulocytes # (auto) 0.01 K/uL (0.00-0.02); Immature Granulocytes % (auto) 0.2 %; Lymphocytes # (auto) 0.34 K/uL (1.2-3.4); Lymphocytes % (auto) 5.4 %; Mean Corpuscular Hemoglobin 33.1 pg (25-34); Mean Corpuscular Hgb Conc 31.9 g/dL (32-36); Mean Platelet Volume 11.5 fL (7.4-10.4); Monocytes # (auto) 0.34 K/uL (0.11-0.59); Monocytes % (auto) 5.4 %; Neutrophils # (auto) 5.54 K/uL (1.4-6.5); Neutrophils % (auto) 88.6 %; Platelet Count 89 K/uL (130-400); Platelet Estimate Decreased (Normal); RDW Coefficient of Variation 14.9 % (11.5-14.5); RDW Standard Deviation 56.3 fL (36.4-46.3); Red Blood Count 3.53 M/uL (4.2-5.4); Toxic Vacuolation 2+; White Blood Count 6.25 K/uL (4.8-10.8)
--- NOTE | 2019-06-02 11:22 | Electrocardiogram Report ---
Test Reason : Blood Pressure : / mmHG Vent. Rate : 090 BPM Atrial Rate : 090 BPM P-R Int : 154 ms QRS Dur : 084 ms QT Int : 444 ms P-R-T Axes : 072 042 066 degrees QTc Int : 543 ms Normal sinus rhythm Possible Left atrial enlargement Low voltage QRS Possible Inferior infarct (cited on or before 15-MAY-2018) Prolonged QT Abnormal ECG When compared with ECG of 15-MAY-2018 13:57, QT has lengthened Confirmed by Luis Fernando Crawford ([id number]) on 06/02/2019 11:21:37 AM Referred By: ER Confirmed By:Luis Fernando Crawford
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
[2019-06-02] MEDS ORDERED: ICU PROTOCOL FOR HYPERGLYCEMIA PRN (11:48)
[2019-06-02] MEDS ORDERED: NIFEdipine EXTENDED REL 30 MG TABCR PO PRN (11:48)
[2019-06-02] MEDS ORDERED: GABAPENTIN 1200MG ALCOHOL WITHDRAWAL LOAD PO ONE (12:03)
[2019-06-02] MEDS ORDERED: GABAPENTIN 600 MG TAB PO SCH ×2 (12:15→18:00)
[2019-06-02] MEDS ORDERED: INFLUENZA VIRUS QUAD VACCINE 0.5 ML SYR IM ONE (12:16)
[2019-06-02] MEDS ORDERED: INFLUENZA ADMINISTRATION CHARGE ONE (12:16)
--- NOTE | 2019-06-02 12:17 | Communication Note ---
Date of Service: June 02, 2019 GI brief consultation note: called for consultation regarding acute liver failure; Briefly this is a 53 yo female with hx severe alcohol abuse and recent large acute intake this past weekend who now presents after hallucinations at home. Her boyfriend had described that she drinks more than she admits to as well. Hgb currently stable, unchanged since January 2019, thrombocytopenia is noted. Also was noted to take ibuprofen as an outpatient. Labs reviewed, consistent with acute alcoholic liver failure, INR>6.5. Also with subsequent acute renal failure and suspected UTI. Recs: --Start IV NAC STAT --likely will need dialysis --strongly recommend immediate transfer to a tertiary care center ([facility], [facility], [facility], etc.) for advanced liver care. --supportive care --avoid NSAIDS strictly rest as per primary team Dimitry Carroll MD Gastroenterology
[2019-06-02] MEDS ORDERED: cefTRIAXone SODIUM 2,000 MG in DEXTROSE 5% 50 ML IV SCH (12:30)
[2019-06-02 13:00] LABS: Hepatitis B Surface Antigen Neg (Neg)
[2019-06-02] MEDS ORDERED: DEXTROSE 5% IV ONE ×3 (13:00→18:39)
[2019-06-02] MEDS ORDERED: ACETYLCYSTEINE IV ONE ×3 (13:00→18:39)
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
[2019-06-02 13:30] LABS: Hepatitis C IgG 13Yrs+Old_Rflx Neg (Neg)
[2019-06-02 13:39] LABS: Reticulocytes # 0.03 10^6/uL (0.02-0.10)
[2019-06-02 13:42] LABS: Base Excess VBG -8.7 mEq/L; Oxygen Saturation VBG 76.7 %; pH VBG 7.34 (7.36-7.41)
--- NOTE | 2019-06-02 13:44 | Billing Data ---
Date of Service June 02, 2019 Coding Level of Care Code 23853 Prolonged Care-adt'l 30m
--- NOTE | 2019-06-02 13:44 | Billing Data ---
Date of Service June 02, 2019 Coding Level of Care Code Critical Care mins
--- NOTE | 2019-06-02 13:50 | Ultrasound Report ---
RENAL ULTRASOUND CLINICAL HISTORY: Acute renal failure. COMPARISON STUDY: CT of the abdomen and pelvis January 06, 2019 and June 02, 2019. TECHNIQUE: Sonography of the kidneys and the urinary bladder was performed. FINDINGS: The right kidney measures 10.4 x 5.2 x 5.5 cm and the left kidney measures 10.3 x 5.6 x 7.8 cm. There is no hydronephrosis. No renal mass or calculus is identified. A Mckinley balloon is present within the bladder which is collapsed. Renal size and cortical thickness are normal. Renal echogenici ty may be slightly increased. Hepatic echogenicity is increased. IMPRESSION: No hydronephrosis. ACT 112: Negative or not required by law. Electronically signed by: Heber Lugo M.D. 06/02/2019 1:48 PM
--- NOTE | 2019-06-02 13:53 | Ultrasound Report ---
US abdomen ltd ascites CLINICAL HISTORY: 53 years-old Female presenting with Acute liver failure, r/o ascites. TECHNIQUE: Real-time grayscale ultrasound imaging of the abdomen was performed for a focused evaluati on for ascites. COMPARISON: CT of abdomen and pelvis from earlier today. FINDINGS: The 4 quadrants and midline of the abdomen were evaluated for ascites. No free fluid evident. Heterog eneous hyperechogenicity of the liver correlates with hepatic steatosis on CT. Incidental note made o f gallbladder wall thickening. The gallbladder is distended on a physiologic basis. IMPRESSION: 1. No ascites. 2. Gallbladder wall thickening in the physiologically distended gallbladder. Cholelithiasis was evid ent at the gallbladder neck on CT. Findings are most likely secondary and related to the patient's in trinsic liver pathology/acute liver failure. ACT 112: Negative or not required by law. Electronically signed by: Donald Ortiz M.D. 06/02/2019 1:52 PM
[2019-06-02 13:55] LABS: Urine Potassium 29.7 mmol/L
[2019-06-02 13:59] LABS: Prothrombin Time 61.5 Seconds (9.0-12.0)
[2019-06-02] MEDS ORDERED: THIAMINE HCL 500 MG in SYRINGE 9 ML IV SCH (14:00)
[2019-06-02 14:02] LABS: INR 6.5 (0.9-1.1)
[2019-06-02 14:07] LABS: BUN Creatinine Ratio 6.2 (10-20); Calcium 6.3 mg/dl (8.5-10.1); Creatinine Clr Calc Pharmacy 14.8 ml/min; Est GFR (African American) 14.1; Est GFR (Non-African American) 12.2; Potassium 3.6 mmol/L (3.5-5.1)
--- NOTE | 2019-06-02 14:16 | Emergency Department Note ---
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 Cancelled Reactive Lymphs % (Man) Cancelled Monocytes % (Manual) Cancelled Eosinophils % (Manual) Cancelled Basophils % (Manual) Cancelled Metamyelocytes % (Man) Cancelled Myelocytes % (Man) Cancelled Promyelocytes % (Man) Cancelled Blast Cells % (Manual) Cancelled Plasma Cell % (Manual) Cancelled Other Cells % Cancelled Nucleated RBC % Cancelled Neutrophils # (Manual) Cancelled Band Neutrophils # Cancelled Total Absolute Neuts Cancelled Lymphocytes # (Manual) Cancelled Prolymphocyte # Cancelled Reactive Lymphs # Cancelled Total Abs Lymphocytes Cancelled Monocytes # (Manual) Cancelled Eosinophils # (Manual) Cancelled Basophils # (Manual) Cancelled Metamyelocytes # (Man) Cancelled Myelocytes # (Manual) Cancelled Promyelocytes # (Man) Cancelled Blast Cells # (Man) Cancelled Plasma Cell # (Manual) Cancelled Other Cells # Cancelled Nucleated RBCs # (Man) Cancelled Hypersegmented Neuts Cancelled Hyposegmented Neuts Cancelled Hypogranular Neuts Cancelled Large Granular Lymphs Cancelled # Lrg Granular Lymphs Cancelled Hairy Cells Cancelled Smudge Cells Cancelled Toxic Granulation Cancelled Toxic Vacuolation Cancelled Dohle Bodies Cancelled Bob Rods Cancelled Platelet Estimate Cancelled Hypogranular Platelets Cancelled Clumped Platelets Cancelled Giant Platelets Cancelled Platelet Satelliting Cancelled RBC Morphology Cancelled Polychromasia Cancelled Hypochromasia Cancelled Poikilocytosis Cancelled Basophilic Stippling Cancelled Anisocytosis Cancelled Microcytosis Cancelled Macrocytosis Cancelled Spherocytes Cancelled Pappenheimer Bodies Cancelled Sickle Cells Cancelled Target Cells Cancelled Tear Drop Cells Cancelled Ovalocytes Cancelled Stomatocytes Cancelled [place] Bodies Cancelled Echinocytes Cancelled Acanthocytes (Spur) Cancelled Rouleaux Cancelled RBC Agglutinates Cancelled Schistocytes Cancelled RBC Morph Comment Cancelled Sezary Cell Cancelled PT (9.0-12.0) Seconds INR (0.9-1.1) APTT (21.0-31.0) Seconds PTT Ratio POC Sodium (135-144) mmol/L Sodium (136-145) mmol/L POC Potassium (3.3-5.0) mmol/L Potassium (3.5-5.1) mmol/L POC Chloride (101-112) mmol/L Chloride (98-107) mmol/L Carbon Dioxide (21-32) mmol/L POC Total CO2 (24-31) mEq/l Anion Gap (3-11) POC Anion Gap (16-25) mmol/L POC BUN (7-18) mg/dl BUN (7-18) mg/dl Creatinine (0.6-1.2) mg/dl POC Creatinine (0.6-1.3) mg/dl Est Cr Clr Drug Dosing Est GFR ( Amer) Est GFR (Non-Af Amer) BUN/Creatinine Ratio (10-20) Glucose (70-99) mg/dl POC Glucose 74 (70-99) mg/dl POC Glucose (other) (70-99) mg/dl Lactate (0.4-2.0) mmol/L Calcium (8.5-10.1) mg/dl POC Ioniz Calcium Daria (1.12-1.32) mmol/l Magnesium (1.8-2.4) mg/dl Total Bilirubin (0.2-1) mg/dl AST (15-37) U/L ALT (12-78) U/L Alkaline Phosphatase (45-117) U/L Ammonia (11-32) umol/L Troponin I (0-0.045) ng/ml Total Protein (6.4-8.2) gm/dl Albumin (3.4-5.0) gm/dl Globulin (2.5-4.0) gm/dl Albumin/Globulin Ratio (0.9-2) Lipase (73-393) U/L TSH (0.300-4.500) uIu/ml Free T4 (0.8-1.6) ng/dl Urine Color Urine Appearance (Clear) Urine pH (4.5-7.5) Ur Specific Fabens (1.000-1.030) Urine Protein (Negative) Urine Glucose (UA) (Negative) Urine Ketones (Negative) Urine Blood (Negative) Urine Nitrite (Negative) Urine Bilirubin (Negative) Urine Urobilinogen (Negative) Ur Leukocyte Esterase (Negative) Urine WBC (Auto) (0-5) /hpf Urine RBC (Auto) (0-4) /hpf U Hyaline Cast (Auto) (0-5) /lpf U Epithel Cells (Auto) (0-5) /lpf Urine Bacteria (Auto) (Negative) Granular Casts (0) /lpf Urine Opiates Screen Neg (Neg) Ur Methadone, Qual Neg (Neg) Urine Barbiturates Neg (Neg) Ur Phencyclidine (PCP) Neg (Neg) U Amphetamin/Meth Scrn Neg (Neg) MDMA (Ecstasy) Screen Neg (Neg) U Benzodiazepines Scrn Neg (Neg) Ur Cocaine Metabolite Neg (Neg) U Marijuana (THC) Screen Neg (Neg) Ethyl Alcohol mg/dL (0-3) mg/dl 06/02/19 Range/Units 10:41 WBC 6.25 RBC 3.53 L Hgb 11.7 L POC Hgb (12.0-16.0) g/dl Hct 36.7 L POC Hct (37-47) % MCV 104.0 H MCH 33.1 MCHC 31.9 L RDW Std Deviation 56.3 H RDW Coeff of Citlaly 14.9 H Plt Count 89 L MPV 11.5 H Immature Gran % (Auto) 0.2 Neut % (Auto) 88.6 Lymph % (Auto) 5.4 Schleicher % (Auto) 5.4 Eos % (Auto) 0.2 Baso % (Auto) 0.2 Immature Gran # (Auto) 0.01 Neut # (Auto) 5.54 Lymph # (Auto) 0.34 L Schleicher # (Auto) 0.34 Eos # (Auto) 0.01 Baso # (Auto) 0.01 Absolute Nucleated RBC Nucleated RBC % (auto) Neutrophils % (Manual) Band Neutrophils % Lymphocytes % (Manual) Prolymphocyte % Reactive Lymphs % (Man) Monocytes % (Manual) Eosinophils % (Manual) Basophils % (Manual) Metamyelocytes % (Man) Myelocytes % (Man) Promyelocytes % (Man) Blast Cells % (Manual) Plasma Cell % (Manual) Other Cells % Nucleated RBC % Neutrophils # (Manual) Band Neutrophils # Total Absolute Neuts Lymphocytes # (Manual) Prolymphocyte # Reactive Lymphs # Total Abs Lymphocytes Monocytes # (Manual) Eosinophils # (Manual) Basophils # (Manual) Metamyelocytes # (Man) Myelocytes # (Manual) Promyelocytes # (Man) Blast Cells # (Man) Plasma Cell # (Manual) Other Cells # Nucleated RBCs # (Man) Hypersegmented Neuts Hyposegmented Neuts Hypogranular Neuts Large Granular Lymphs # Lrg Granular Lymphs Hairy Cells Smudge Cells Toxic Granulation Toxic Vacuolation 2+ Dohle Bodies Bob Rods Platelet Estimate Decreased L Hypogranular Platelets Clumped Platelets Giant Platelets Platelet Satelliting RBC Morphology Polychromasia Hypochromasia Poikilocytosis Basophilic Stippling Anisocytosis Microcytosis Macrocytosis Spherocytes Pappenheimer Bodies Sickle Cells Target Cells Tear Drop Cells Ovalocytes Stomatocytes [place] Bodies Echinocytes 1+ Acanthocytes (Spur) Rouleaux RBC Agglutinates Schistocytes RBC Morph Comment Sezary Cell PT (9.0-12.0) Seconds INR (0.9-1.1) APTT (21.0-31.0) Seconds PTT Ratio POC Sodium (135-144) mmol/L Sodium (136-145) mmol/L POC Potassium (3.3-5.0) mmol/L Potassium (3.5-5.1) mmol/L POC Chloride (101-112) mmol/L Chloride (98-107) mmol/L Carbon Dioxide (21-32) mmol/L POC Total CO2 (24-31) mEq/l Anion Gap (3-11) POC Anion Gap (16-25) mmol/L POC BUN (7-18) mg/dl BUN (7-18) mg/dl Creatinine (0.6-1.2) mg/dl POC Creatinine (0.6-1.3) mg/dl Est Cr Clr Drug Dosing Est GFR ( Amer) Est GFR (Non-Af Amer) BUN/Creatinine Ratio (10-20) Glucose (70-99) mg/dl POC Glucose (70-99) mg/dl POC Glucose (other) (70-99) mg/dl Lactate (0.4-2.0) mmol/L Calcium (8.5-10.1) mg/dl POC Ioniz Calcium Daria (1.12-1.32) mmol/l Magnesium (1.8-2.4) mg/dl Total Bilirubin (0.2-1) mg/dl AST (15-37) U/L ALT (12-78) U/L Alkaline Phosphatase (45-117) U/L Ammonia (11-32) umol/L Troponin I (0-0.045) ng/ml Total Protein (6.4-8.2) gm/dl Albumin (3.4-5.0) gm/dl Globulin (2.5-4.0) gm/dl Albumin/Globulin Ratio (0.9-2) Lipase (73-393) U/L TSH (0.300-4.500) uIu/ml Free T4 (0.8-1.6) ng/dl Urine Color Urine Appearance (Clear) Urine pH (4.5-7.5) Ur Specific Fabens (1.000-1.030) Urine Protein (Negative) Urine Glucose (UA) (Negative) Urine Ketones (Negative) Urine Blood (Negative) Urine Nitrite (Negative) Urine Bilirubin (Negative) Urine Urobilinogen (Negative) Ur Leukocyte Esterase (Negative) Urine WBC (Auto) (0-5) /hpf Urine RBC (Auto) (0-4) /hpf U Hyaline Cast (Auto) (0-5) /lpf U Epithel Cells (Auto) (0-5) /lpf Urine Bacteria (Auto) (Negative) Granular Casts (0) /lpf Urine Opiates Screen (Neg) Ur Methadone, Qual (Neg) Urine Barbiturates (Neg) Ur Phencyclidine (PCP) (Neg) U Amphetamin/Meth Scrn (Neg) MDMA (Ecstasy) Screen (Neg) U Benzodiazepines Scrn (Neg) Ur Cocaine Metabolite (Neg) U Marijuana (THC) Screen (Neg) Ethyl Alcohol mg/dL (0-3) mg/dl Imaging Data Attestation: I personally reviewed and interpreted this imaging study as follows: Radiologist's Impression: XR chest 1V portable CLINICAL HISTORY: weakness COMPARISON STUDY: Chest radiograph October 23, 2017. FINDINGS: Lung volumes are normal. Linear left basilar opacity suggests atelectasis or scarring. There is no pneumothorax or pleural effusion. Mild cardiomegaly is unchanged. Mediastinal contours are normal. There is no evidence for pulmonary edema. IMPRESSION: No acute cardiopulmonary findings. No change in appearance of the chest. ACT 112: Negative or not required by law. Electronically signed by: Heber Lugo M.D. 06/02/2019 10:42 AM Dictated: 06/02/19 1041 Transcribed: 06/02/191040 CT head/brain wo con CLINICAL HISTORY: Acute change in mental status COMPARISON STUDY: MRI the brain performed October 2006 TECHNIQUE: Axial CT of the brain is performed from the vertex to the skull base. IV contrast was not administered for this examination. A dose lowering technique was utilized adhering to the principles of ALARA. CT DOSE: 1277.12 mGycm FINDINGS: No intra or extra-axial mass lesions are visualized. There is no CT evidence of acute cortical infarction. There is no evidence of midline shift. There is no acute hemorrhage. No calvarial fractures are visualized. There is no evidence of pathologic ventricular dilatation. There is no evidence of acute sinusitis IMPRESSION: No acute intracranial findings ACT 112: Negative or not required by law. Electronically signed by: Delvin Fisher M.D. 06/02/2019 10:00 AM Dictated: 06/02/19 0958 Transcribed: 06/02/1958 CT OF THE ABDOMEN AND PELVIS WITHOUT CONTRAST CLINICAL HISTORY: ARF (creat 6), pancreatitis, hyponatremia COMPARISON STUDY: CT of the abdomen and pelvis January 06, 2019. TECHNIQUE: Axial images of the abdomen and pelvis were obtained without IV contrast. Images were reviewed in the axial, sagittal, and coronal planes. Automated exposure control was utilized for the study. A dose lowering technique was utilized adhering to the principles of ALARA. FINDINGS: No pneumatosis, free air or portal venous gas is present. Evaluation of the abdomen and pelvis is suboptimal on this unenhanced exam. There is marked fatty infiltration of the liver. Unenhanced images of the spleen and adrenal glands are unremarkable. There is no hydronephrosis or hydroureter. No urinary calculi are identified. Bile within the gallbladder is hyperdense. There is a possible small stone within the gallbladder. There is no biliary ductal dilatation. No pancreatic ductal dilatation is present. There are no peripancreatic fluid collections. There is mild infiltration adjacent to the uncinate process of the pancreas. There is no evidence for a bowel obstruction. The appendix is normal. Mckinley balloon is present within the bladder which is collapsed. No suspicious osseous lesions are noted. There is no lymphadenopathy. Chronic diverticulosis is noted without evidence for acute diverticulitis. IMPRESSION: 1. Mild infiltration adjacent to the uncinate process of the pancreas which suggests acute pancreatitis. No peripancreatic fluid collections. 2. Possible tiny calcified gallstone within the gallbladder. No biliary ductal dilatation. 3. Marked fatty infiltration of the liver. 4. No hydronephrosis. ACT 112: Negative or not required by law. Electronically signed by: Heber Lugo M.D. 06/02/2019 10:18 AM Dictated: 06/02/19 1001 Transcribed: 06/02/19 1001 ECG Data Attestation: I personally reviewed and interpreted this ECG as follows: Indication: + altered mental status Rate (beats per minute): 90 Rhythm: + normal sinus ECG Intervals/blocks: + Prolonged QT (543) ECG [place]: + Normal ECG ST segments: + Normal ST segments ECG Findings: + Q waves (Inferior) and + Other (low voltage) Blood Pressure Blood Pressure Findings: Low blood pressure Blood Pressure Disposition: further management by hospitalist SUZAN Durham This patient was evaluated and appeared to be acutely ill. Patient was noted to be hypotensive and pale/jaundiced. IV access was obtained and the patient was given an amp of IV D50. Patient is noted to be severely metabolically deranged on i-STAT with a creatinine of 6.0, sodium of 119. Follow-up laboratory work is pending. CT scan of the head was performed and is negative. CT imaging of the abdomen pelvis was performed without contrast. This study is read as acute pancreatitis without notable collection. Patient's formal laboratory work reveals severe metabolic derangements with hyponatremia, acute renal failure with a creatinine of 5.4, coagulopathy with an INR greater than 6. Patient is in acute hepatic failure with AST greater than 6000, ALT of 1200. Lipase is 2390. Troponin is elevated at 0.3 without acute ischemic change on EKG. EKG is noted to have a prolonged QT interval. Patient was hydrated with 500 cc of IV normal saline solution. Patient was then placed on D5 NS. She was given a banana bag with an extra 100 mg of IV folate. Patient was also given IV vitamin K 10 mg for the coagulopathy. A Mckinley catheter was placed. I did discuss the case with the hospitalist service, Dr. Mendoza. Dr. Barlilas of the hospitalist service was also consulted. Low-dose IV vasopressin was ordered at his request. Patient is aware of the findings and plan. Impression & Plan Acute hepatic failure, Pancreatitis, Acute hyponatremia, Acute renal failure, Acute hypotension, Acute alteration in mental status Discharge Plan Visit Data *Final* Discharge Date/Time: 06/02/19 11:20 Chief Complaint: Altered Mental Status ED Provider: Dinorah Pearson Discharge Problem: Acute hepatic failure, Pancreatitis, Acute hyponatremia, Acute renal failure, Acute hypotension, Acute alteration in mental status Patient Disposition: Admitted As Inpatient Discharge Instructions Interventions: ED Discharge Assessment Last Done: 06/02/19 11:20 Discharge Problem: Acute hepatic failure Qualifiers: Hepatic coma status: without hepatic coma Qualified Code(s): K72.00 - Acute and subacute hepatic failure without coma Pancreatitis Qualifiers: Chronicity: acute Pancreatitis type: alcohol induced Acute pancreatitis complication: unspecified Qualified Code(s): K85.20 - Alcohol induced acute pancreatitis without necrosis or infection Acute renal failure Qualifiers: Acute renal failure type: unspecified Qualified Code(s): N17.9 - Acute kidney failure, unspecified
[2019-06-02 14:23] LABS: Ferritin 8105.5 ng/ml (8-388)
[2019-06-02] MEDS ORDERED: CALCIUM GLUCONATE 10% 1,000 MG in SODIUM CHLORIDE 0.9% 50 ML IV STA (14:27)
[2019-06-02] MEDS ORDERED: chlordiazePOXIDE ALCOHOL WITHDRAWL 25MG PO STA (14:29)
[2019-06-02] MEDS ORDERED: MAGNESIUM SULFATE / D5W 1 GM/100 ML BAG IV ONE (14:30)
[2019-06-02] MEDS: FOLIC ACID 1 MG TAB PO SCH (14:57)
[2019-06-02] MEDS: LACTULOSE SYRUP 30 GM/45 ML UDP PO SCH (15:06)
[2019-06-02] MEDS ORDERED: POTASSIUM CHLORIDE 20 MEQ TABCR PO SCH (15:15)
--- NOTE | 2019-06-02 15:26 | XCELERA ---
[id number] \\[id number]___[id number]
[2019-06-02] MEDS: ALBUMIN 25% 50 ML IV SCH ×6 (15:39→19:36)
[2019-06-02] MEDS: THIAMINE HCL 500 MG in 0.9 % SODIUM CHLORIDE 100 ML IV SCH ×2 (15:45→20:30)
[2019-06-02] MEDS: chlordiazePOXIDE HCl 25 MG CAP PO SCH ×2 (15:53→20:29)
[2019-06-02] MEDS ORDERED: METOCLOPRAMIDE HCL INJ 5 MG/ML 2 ML VIAL IV PRN (16:13)
[2019-06-02 17:36] LABS: Troponin I 0.309 ng/ml (0-0.045)
[2019-06-02] MEDS: MIDODRINE HCL 10 MG TAB PO SCH (17:57)
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
[2019-06-02 18:15] LABS: Albumin Level 3.1 gm/dl (3.4-5.0); BUN Creatinine Ratio 8.5 (10-20); Calcium 6.4 mg/dl (8.5-10.1); Creatinine Clr Calc Pharmacy 18.2 ml/min; Est GFR (African American) 18.1; Est GFR (Non-African American) 15.6; Potassium 3.4 mmol/L (3.5-5.1)
[2019-06-02 19:47] LABS: Phosphorus 2.9 mg/dl (2.5-4.9)
[2019-06-02] MEDS: MAGNESIUM OXIDE 400 MG TAB PO SCH (20:29)
[2019-06-02] MEDS: OCTREOTIDE ACETATE 500 MCG in 0.9 % SODIUM CHLORIDE 100 ML IV SCH (22:29)
[2019-06-02 22:39] LABS: BUN Creatinine Ratio 10.6 (10-20); Calcium 6.7 mg/dl (8.5-10.1); Creatinine Clr Calc Pharmacy 22.8 ml/min; Est GFR (African American) 23.8; Est GFR (Non-African American) 20.5; Magnesium 2.1 mg/dl (1.8-2.4); Potassium 3.3 mmol/L (3.5-5.1)
[2019-06-02 22:54] LABS: Phosphorus 1.7 mg/dl (2.5-4.9)
[2019-06-02] MEDS ORDERED: POTASSIUM PHOS 3 MMOL/1 ML INFUSION IV STA (23:00)
[2019-06-02] MEDS ORDERED: DEXTROSE 5% 500 ML IV ONE (23:01)
[2019-06-02] MEDS ORDERED: CALCIUM CHLORIDE 10% 1,000 MG in SODIUM CHLORIDE 0.9% 50 ML IV STA (23:02)
[2019-06-02] MEDS ORDERED: POTASSIUM PHOSPHATE 30 MMOL in DEXTROSE 5% 500 ML IV ONE (23:15)
[2019-06-02] MEDS ORDERED: POTASSIUM PHOSPHATE 30 MMOL in SODIUM CHLORIDE 0.9% 500 ML IV ONE (23:15)
[2019-06-03] MEDS: chlordiazePOXIDE HCl 25 MG CAP PO SCH ×5 (03:10→23:32)
[2019-06-03 04:12] LABS: Hemoglobin 11.7 g/dL (12.0-16.0); Mean Corpuscular Hemoglobin 34.1 pg (25-34); Mean Corpuscular Hgb Conc 34.4 g/dL (32-36); Mean Corpuscular Volume 99.1 fL (80-100); RDW Coefficient of Variation 14.7 % (11.5-14.5); RDW Standard Deviation 52.5 fL (36.4-46.3); Red Blood Count 3.43 M/uL (4.2-5.4); White Blood Count 4.13 K/uL (4.8-10.8)
[2019-06-03 04:15] LABS: Mean Platelet Volume 11.4 fL (7.4-10.4); Platelet Count 89 K/uL (130-400)
[2019-06-03 04:21] LABS: INR 3.5 (0.9-1.1); Prothrombin Time 34.5 Seconds (9.0-12.0)
[2019-06-03 04:55] LABS: Bilirubin Direct 4.9 mg/dl (0-0.2)
[2019-06-03 04:57] LABS: Albumin Level 3.3 gm/dl (3.4-5.0); BUN Creatinine Ratio 14.2 (10-20); Bilirubin,Total 7.4 mg/dl (0.2-1); Calcium 7.7 mg/dl (8.5-10.1); Creatinine Clr Calc Pharmacy 29.6 ml/min; Est GFR (African American) 32.6; Est GFR (Non-African American) 28.1; Magnesium 2.2 mg/dl (1.8-2.4); Potassium 3.5 mmol/L (3.5-5.1); Total Protein 6.6 gm/dl (6.4-8.2); Troponin I 0.386 ng/ml (0-0.045)
[2019-06-03 04:58] LABS: Phosphorus 3.2 mg/dl (2.5-4.9)
[2019-06-03 04:59] LABS: Eosinophils # (auto) 0.04 K/uL (0-0.5); Giant Platelets 1+; Immature Granulocytes # (auto) 0.04 K/uL (0.00-0.02); Lymphocytes % (auto) 7.3 %; Monocytes # (auto) 0.68 K/uL (0.11-0.59); Monocytes % (auto) 16.5 %; Neutrophils # (auto) 3.07 K/uL (1.4-6.5); Neutrophils % (auto) 74.2 %
[2019-06-03] MEDS: POTASSIUM CHLORIDE / WTR 10 MEQ/100 ML PLCT IV SCH ×5 (06:38→16:20)
[2019-06-03] MEDS: OCTREOTIDE ACETATE 500 MCG in 0.9 % SODIUM CHLORIDE 100 ML IV SCH (07:57)
[2019-06-03] MEDS ORDERED: GABAPENTIN 600 MG TAB PO SCH (08:00)
--- NOTE | 2019-06-03 08:18 | Critical Care Progress Note ---
Date of Service June 03, 2019 Assessment & Plan (1) Acute liver failure: Reason Critically Ill: 53-year-old female with hepatorenal syndrome, hepatic encephalopathy, acute liver failure. PLAN: Neuro: Hallucination: At risk for alcohol withdrawal: Delirium tremens alcohol induced mood disorder -Alcohol withdrawal scoring -Avoiding gabapentin in the setting of NEERAJ Hepatic encephalopathy: Unchanged -Elevated ammonia level -Lactulose twice daily Resp: Tachypnea improved -Secondary to lactic acidosis Hypoxemia -Wean oxygen as tolerated seems to be positional concern for hepatopulmonary involvement -If strong evidence of hepatopulmonary shunting this is a strong indicator for transplant of liver CV: Hypotension: Resolved -Patient somewhat hypertensive discontinuing midodrine as well as octreotide -Echo reviewed, request additional images to rule out hepatopulmonary syndrome Prolonged QTC: Improving -Optimize electrolytes -Avoid QT prolonging medications Fluids/Renal: Albumin boluses -75 g x 2 days (this is 6 bags of 25% albumin it has been ordered for June 02) Lactic acidosis: Improving -Additional oral thiamine supplementation Acute kidney injury/acute renal failure: Improving -Renal ultrasound reviewed -Nephrology recommendations reviewed Relative hypomagnesemia: Resolved -Mag oxide: 400 mg nightly Hypocalcemia: Improving Hyponatremia: Improving Hyperkalemia: Resolved: Discontinuing additional maintenance fluids -Converting N-acetylcysteine to oral formulation to decrease amount of free water ID: Rocephin -Discontinuing antibiotics, role of rifaximin and acute liver failure is unclear holding at this time -No ascites on liver ultrasound -Straight cath urine culture did not demonstrate sufficient growth GI/Nutrition: Acute alcoholic liver failure -N-acetylcysteine continue for 72 hours -1 mg folic acid daily Heme: Anemia -Suspect bone marrow suppression from alcohol DVT prophylaxis: SCDs Endocrine: ICU hyperglycemia protocol: Discontinued Hypoglycemia: Resolved Vascular access: Peripheral IVs Code Status: Full Disposition: Stable for downgrade out of ICU: Discussed on rounds and with hospitalist service (2) Alcohol dependence syndrome: (3) Hepatic encephalopathy: (4) Hepatorenal failure: (5) Elevated troponin: (6) ARF (acute renal failure): (7) Hallucinations: (8) Acute hyponatremia: (9) Pancreatitis: Admission and Anticipated Discharge Date Admission Date: June 02, 2019 Subjective No overnight eventsMild decrease in mental status slow processing. Review of Systems Review of Systems: Denies chest pain denies shortness of breath Physical Exam Physical Exam: General: Alert. Requires minimal redirection Skin: Warm, dry, Head: Atraumatic Eyes: Icteric sclera Ears, nose, mouth and throat: airway patent Cardiovascular: Normal peripheral perfusion Respiratory: no respiratory distress Gastrointestinal: Non distended Musculoskeletal: No deformity Results & Data Results & Data ([facility]) Vital Signs (Past 12 Hours) Vital Signs Pulse Resp BP Pulse Ox 06/03/19 05:11 103 H 24 155/77 H 91 06/03/19 05:00 99 H 23 91 06/03/19 04:55 98 H 28 H 137/85 93 06/03/19 04:40 100 H 28 H 140/83 91 06/03/19 04:25 101 H 32 H 162/80 H 93 06/03/19 04:10 110 H 29 H 152/84 H 91 06/03/19 04:00 102 H 28 H 92 06/03/19 03:56 22 153/77 H 91 06/03/19 03:40 120 H 34 H 161/120 H 94 06/03/19 03:25 104 H 24 149/80 H 96 06/03/19 03:10 107 H 20 144/84 H 90 06/03/19 03:00 100 H 25 H 95 06/03/19 02:55 101 H 27 H 154/87 H 95 06/03/19 02:40 98 H 22 141/82 H 93 06/03/19 02:27 101 H 23 153/98 H 95 06/03/19 02:10 97 H 27 H 137/91 06/03/19 02:00 99 H 22 06/03/19 01:55 100 H 25 H 137/90 95 06/03/19 01:40 100 H 23 143/96 H 94 06/03/19 01:25 97 H 25 H 127/90 95 06/03/19 01:10 105 H 25 H 139/99 95 06/03/19 01:00 107 H 22 94 06/03/19 00:56 112 H 23 138/105 H 95 06/03/19 00:40 108 H 28 H 151/101 H 97 06/03/19 00:32 100 H 22 135/96 96 06/03/19 00:10 99 H 21 108/79 93 06/03/19 00:00 95 H 30 H 94 06/02/19 23:59 102 H 06/02/19 23:55 101 H 17 107/91 93 06/02/19 23:40 104 H 34 H 127/81 95 06/02/19 23:26 129 H 26 H 109/96 94 06/02/19 23:19 102 H 25 H 131/83 95 06/02/19 23:10 102 H 19 174/167 H 94 06/02/19 23:00 105 H 24 94 06/02/19 22:55 104 H 18 139/106 H 95 06/02/19 22:40 109 H 24 146/100 H 94 06/02/19 22:25 100 H 20 131/104 H 94 06/02/19 22:23 21 145/98 H 93 06/02/19 22:00 97 H 24 95 06/02/19 21:55 97 H 21 117/69 94 06/02/19 21:50 97 H 20 94 06/02/19 21:40 97 H 24 139/72 94 06/02/19 21:30 97 H 21 95 06/02/19 21:24 100 H 22 122/88 94 06/02/19 21:20 104 H 21 94 06/02/19 21:10 101 H 25 H 95/75 L 96 06/02/19 21:00 19 95 06/02/19 20:55 24 131/83 95 06/02/19 20:50 101 H 21 96 06/02/19 20:41 20 94 06/02/19 20:39 101 H 26 H 143/96 H 96 06/02/19 20:30 98 H 23 98 06/02/19 20:25 96 H 18 129/88 96 06/02/19 20:20 88 24 95 Laboratory Results 06/03/19 06/03/19 06/03/19 Range/Units 04:04 04:04 04:04 WBC RBC Hgb POC Hgb (12.0-16.0) g/dl Hct POC Hct (37-47) % MCV MCH MCHC RDW Std Deviation RDW Coeff of Citlaly Plt Count MPV Immature Gran % (Auto) Neut % (Auto) Lymph % (Auto) Harlan % (Auto) Eos % (Auto) Baso % (Auto) Reticulocyte % (Auto) (0.5-2.0) % Immature Gran # (Auto) Neut # (Auto) Lymph # (Auto) Harlan # (Auto) Eos # (Auto) Baso # (Auto) Reticulocyte # (0.02-0.10) 10^6/uL Absolute Nucleated RBC Nucleated RBC % (auto) Neutrophils % (Manual) Band Neutrophils % Lymphocytes % (Manual) Prolymphocyte % Reactive Lymphs % (Man) Monocytes % (Manual) Eosinophils % (Manual) Basophils % (Manual) Metamyelocytes % (Man) Myelocytes % (Man) Promyelocytes % (Man) Blast Cells % (Manual) Plasma Cell % (Manual) Other Cells % Nucleated RBC % Neutrophils # (Manual) Band Neutrophils # Total Absolute Neuts Lymphocytes # (Manual) Prolymphocyte # Reactive Lymphs # Total Abs Lymphocytes Monocytes # (Manual) Eosinophils # (Manual) Basophils # (Manual) Metamyelocytes # (Man) Myelocytes # (Manual) Promyelocytes # (Man) Blast Cells # (Man) Plasma Cell # (Manual) Other Cells # Nucleated RBCs # (Man) Hypersegmented Neuts Hyposegmented Neuts Hypogranular Neuts Large Granular Lymphs # Lrg Granular Lymphs Hairy Cells Smudge Cells Toxic Granulation Toxic Vacuolation Dohle Bodies Bob Rods Platelet Estimate Hypogranular Platelets Clumped Platelets Giant Platelets Platelet Satelliting RBC Morphology Polychromasia Hypochromasia Poikilocytosis Basophilic Stippling Anisocytosis Microcytosis Macrocytosis Spherocytes Pappenheimer Bodies Sickle Cells Target Cells Tear Drop Cells Ovalocytes Stomatocytes [place] Bodies Echinocytes Acanthocytes (Spur) Rouleaux RBC Agglutinates Schistocytes RBC Morph Comment Sezary Cell PT (9.0-12.0) Seconds INR (0.9-1.1) APTT (21.0-31.0) Seconds PTT Ratio VBG pH (7.36-7.41) VBG pCO2 (38-50) mmHg VBG pO2 mmHg VBG HCO3 mmol/L VBG O2 Saturation % VBG Base Excess mEq/L Barometric Pressure mm/Hg POC Sodium (135-144) mmol/L Sodium 125 L (136-145) mmol/L POC Potassium (3.3-5.0) mmol/L Potassium 3.5 (3.5-5.1) mmol/L POC Chloride (101-112) mmol/L Chloride 96 L (98-107) mmol/L Carbon Dioxide 19 L (21-32) mmol/L POC Total CO2 (24-31) mEq/l Anion Gap 10.0 (3-11) POC Anion Gap (16-25) mmol/L POC BUN (7-18) mg/dl BUN 28 H (7-18) mg/dl Creatinine 1.98 H D (0.6-1.2) mg/dl POC Creatinine (0.6-1.3) mg/dl Est Cr Clr Drug Dosing 29.6 Est GFR ( Amer) 32.6 Est GFR (Non-Af Amer) 28.1 BUN/Creatinine Ratio 14.2 (10-20) Glucose 165 H (70-99) mg/dl POC Glucose (70-99) mg/dl POC Glucose (other) (70-99) mg/dl Osmolality (280-300) mOsm/kg Lactate 3.5 H* (0.4-2.0) mmol/L Calcium 7.7 L (8.5-10.1) mg/dl POC Ioniz Calcium Daria (1.12-1.32) mmol/l Ionized Calcium (1.12-1.32) mmol/L Phosphorus 3.2 D (2.5-4.9) mg/dl Magnesium 2.2 (1.8-2.4) mg/dl Iron (35-150) mcg/dl TIBC (250-450) mcg/dl Transferrin (200-360) mg/dl Ferritin (8-388) ng/ml Total Bilirubin 7.4 H (0.2-1) mg/dl Direct Bilirubin 4.9 H (0-0.2) mg/dl AST 3460 H (15-37) U/L ALT 1132 H (12-78) U/L Alkaline Phosphatase 160 H (45-117) U/L Ammonia 76.0 H (11-32) umol/L Total Creatine Kinase (26-192) U/L Troponin I 0.386 H* (0-0.045) ng/ml Total Protein 6.6 (6.4-8.2) gm/dl Albumin 3.3 L (3.4-5.0) gm/dl Globulin (2.5-4.0) gm/dl Albumin/Globulin Ratio (0.9-2) Triglycerides (0-150) mg/dl Cholesterol (0-200) mg/dl LDL Cholesterol, Calc mg/dl VLDL Cholesterol, Calc mg/dl HDL Cholesterol 10 mg/dl Cholesterol/HDL Ratio Lipase (73-393) U/L Whole Bld Vitamin B1 Vitamin B12 (211-911) pg/ml TSH (0.300-4.500) uIu/ml Free T4 (0.8-1.6) ng/dl PTH Intact (18.4-80.1) pg/ml Urine Color Urine Appearance (Clear) Urine pH (4.5-7.5) Ur Specific Phyllis (1.000-1.030) Urine Protein (Negative) Urine Glucose (UA) (Negative) Urine Ketones (Negative) Urine Blood (Negative) Urine Nitrite (Negative) Urine Bilirubin (Negative) Urine Urobilinogen (Negative) Ur Leukocyte Esterase (Negative) Urine WBC (Auto) (0-5) /hpf Urine RBC (Auto) (0-4) /hpf U Hyaline Cast (Auto) (0-5) /lpf U Epithel Cells (Auto) (0-5) /lpf Urine Bacteria (Auto) (Negative) Granular Casts (0) /lpf Urine Osmolality (500-800) mOsm/kg Urine Sodium mmol/L Urine Potassium mmol/L Urine Chloride mmol/L Nasal Screen MRSA (PCR) (Negative) Urine Opiates Screen (Neg) Ur Methadone, Qual (Neg) Acetaminophen Urine Barbiturates (Neg) Ur Phencyclidine (PCP) (Neg) U Amphetamin/Meth Scrn (Neg) MDMA (Ecstasy) Screen (Neg) U Benzodiazepines Scrn (Neg) Ur Cocaine Metabolite (Neg) U Marijuana (THC) Screen (Neg) Volat Analys Perform On Ethyl Alcohol mg/dL (0-3) mg/dl Methyl Alcohol Level Hepatitis A IgM Ab Hep Bs Antigen (Neg) Hep B Core IgM Ab Hepatitis C Antibody (Neg) Miscellaneous Test Blood Type Antibody Screen 06/03/19 06/03/19 06/02/19 Range/Units 04:04 04:04 21:15 WBC 4.13 L RBC 3.43 L Hgb 11.7 L POC Hgb (12.0-16.0) g/dl Hct 34.0 L POC Hct (37-47) % MCV 99.1 MCH 34.1 H MCHC 34.4 RDW Std Deviation 52.5 H RDW Coeff of Citlaly 14.7 H Plt Count 89 L MPV 11.4 H Immature Gran % (Auto) 1.0 Neut % (Auto) 74.2 Lymph % (Auto) 7.3 Harlan % (Auto) 16.5 Eos % (Auto) 1.0 Baso % (Auto) 0.0 Reticulocyte % (Auto) (0.5-2.0) % Immature Gran # (Auto) 0.04 H Neut # (Auto) 3.07 Lymph # (Auto) 0.30 L Harlan # (Auto) 0.68 H Eos # (Auto) 0.04 Baso # (Auto) 0.00 Reticulocyte # (0.02-0.10) 10^6/uL Absolute Nucleated RBC Nucleated RBC % (auto) Neutrophils % (Manual) Band Neutrophils % Lymphocytes % (Manual) Prolymphocyte % Reactive Lymphs % (Man) Monocytes % (Manual) Eosinophils % (Manual) Basophils % (Manual) Metamyelocytes % (Man) Myelocytes % (Man) Promyelocytes % (Man) Blast Cells % (Manual) Plasma Cell % (Manual) Other Cells % Nucleated RBC % Neutrophils # (Manual) Band Neutrophils # Total Absolute Neuts Lymphocytes # (Manual) Prolymphocyte # Reactive Lymphs # Total Abs Lymphocytes Monocytes # (Manual) Eosinophils # (Manual) Basophils # (Manual) Metamyelocytes # (Man) Myelocytes # (Manual) Promyelocytes # (Man) Blast Cells # (Man) Plasma Cell # (Manual) Other Cells # Nucleated RBCs # (Man) Hypersegmented Neuts Hyposegmented Neuts Hypogranular Neuts Large Granular Lymphs # Lrg Granular Lymphs Hairy Cells Smudge Cells Toxic Granulation Toxic Vacuolation Dohle Bodies Bob Rods Platelet Estimate Hypogranular Platelets Clumped Platelets Giant Platelets 1+ Platelet Satelliting RBC Morphology Polychromasia Hypochromasia Poikilocytosis Basophilic Stippling Anisocytosis Microcytosis Macrocytosis Spherocytes Pappenheimer Bodies Sickle Cells Target Cells Tear Drop Cells Ovalocytes Stomatocytes Garcia[place] Bodies Echinocytes Acanthocytes (Spur) Rouleaux RBC Agglutinates Schistocytes RBC Morph Comment Sezary Cell PT 34.5 H (9.0-12.0) Seconds INR 3.5 H (0.9-1.1) APTT (21.0-31.0) Seconds PTT Ratio VBG pH (7.36-7.41) VBG pCO2 (38-50) mmHg VBG pO2 mmHg VBG HCO3 mmol/L VBG O2 Saturation % VBG Base Excess mEq/L Barometric Pressure mm/Hg POC Sodium (135-144) mmol/L Sodium (136-145) mmol/L POC Potassium (3.3-5.0) mmol/L Potassium (3.5-5.1) mmol/L POC Chloride (101-112) mmol/L Chloride (98-107) mmol/L Carbon Dioxide (21-32) mmol/L POC Total CO2 (24-31) mEq/l Anion Gap (3-11) POC Anion Gap (16-25) mmol/L POC BUN (7-18) mg/dl BUN (7-18) mg/dl Creatinine (0.6-1.2) mg/dl POC Creatinine (0.6-1.3) mg/dl Est Cr Clr Drug Dosing Est GFR ( Amer) Est GFR (Non-Af Amer) BUN/Creatinine Ratio (10-20) Glucose (70-99) mg/dl POC Glucose (70-99) mg/dl POC Glucose (other) (70-99) mg/dl Osmolality (280-300) mOsm/kg Lactate 4.1 H* (0.4-2.0) mmol/L Calcium (8.5-10.1) mg/dl POC Ioniz Calcium Daria (1.12-1.32) mmol/l Ionized Calcium (1.12-1.32) mmol/L Phosphorus (2.5-4.9) mg/dl Magnesium (1.8-2.4) mg/dl Iron (35-150) mcg/dl TIBC (250-450) mcg/dl Transferrin (200-360) mg/dl Ferritin (8-388) ng/ml Total Bilirubin (0.2-1) mg/dl Direct Bilirubin (0-0.2) mg/dl AST (15-37) U/L ALT (12-78) U/L Alkaline Phosphatase (45-117) U/L Ammonia (11-32) umol/L Total Creatine Kinase (26-192) U/L Troponin I (0-0.045) ng/ml Total Protein (6.4-8.2) gm/dl Albumin (3.4-5.0) gm/dl Globulin (2.5-4.0) gm/dl Albumin/Globulin Ratio (0.9-2) Triglycerides (0-150) mg/dl Cholesterol (0-200) mg/dl LDL Cholesterol, Calc mg/dl VLDL Cholesterol, Calc mg/dl HDL Cholesterol mg/dl Cholesterol/HDL Ratio Lipase (73-393) U/L Whole Bld Vitamin B1 Vitamin B12 (211-911) pg/ml TSH (0.300-4.500) uIu/ml Free T4 (0.8-1.6) ng/dl PTH Intact (18.4-80.1) pg/ml Urine Color Urine Appearance (Clear) Urine pH (4.5-7.5) Ur Specific Phyllis (1.000-1.030) Urine Protein (Negative) Urine Glucose (UA) (Negative) Urine Ketones (Negative) Urine Blood (Negative) Urine Nitrite (Negative) Urine Bilirubin (Negative) Urine Urobilinogen (Negative) Ur Leukocyte Esterase (Negative) Urine WBC (Auto) (0-5) /hpf Urine RBC (Auto) (0-4) /hpf U Hyaline Cast (Auto) (0-5) /lpf U Epithel Cells (Auto) (0-5) /lpf Urine Bacteria (Auto) (Negative) Granular Casts (0) /lpf Urine Osmolality (500-800) mOsm/kg Urine Sodium mmol/L Urine Potassium mmol/L Urine Chloride mmol/L Nasal Screen MRSA (PCR) (Negative) Urine Opiates Screen (Neg) Ur Methadone, Qual (Neg) Acetaminophen Urine Barbiturates (Neg) Ur Phencyclidine (PCP) (Neg) U Amphetamin/Meth Scrn (Neg) MDMA (Ecstasy) Screen (Neg) U Benzodiazepines Scrn (Neg) Ur Cocaine Metabolite (Neg) U Marijuana (THC) Screen (Neg) Volat Analys Perform On Ethyl Alcohol mg/dL (0-3) mg/dl Methyl Alcohol Level Hepatitis A IgM Ab Hep Bs Antigen (Neg) Hep B Core IgM Ab Hepatitis C Antibody (Neg) Miscellaneous Test Blood Type Antibody Screen 06/02/19 06/02/19 06/02/19 Range/Units 21:15 21:15 17:01 WBC RBC Hgb POC Hgb (12.0-16.0) g/dl Hct POC Hct (37-47) % MCV MCH MCHC RDW Std Deviation RDW Coeff of Citlaly Plt Count MPV Immature Gran % (Auto) Neut % (Auto) Lymph % (Auto) Harlan % (Auto) Eos % (Auto) Baso % (Auto) Reticulocyte % (Auto) (0.5-2.0) % Immature Gran # (Auto) Neut # (Auto) Lymph # (Auto) Harlan # (Auto) Eos # (Auto) Baso # (Auto) Reticulocyte # (0.02-0.10) 10^6/uL Absolute Nucleated RBC Nucleated RBC % (auto) Neutrophils % (Manual) Band Neutrophils % Lymphocytes % (Manual) Prolymphocyte % Reactive Lymphs % (Man) Monocytes % (Manual) Eosinophils % (Manual) Basophils % (Manual) Metamyelocytes % (Man) Myelocytes % (Man) Promyelocytes % (Man) Blast Cells % (Manual) Plasma Cell % (Manual) Other Cells % Nucleated RBC % Neutrophils # (Manual) Band Neutrophils # Total Absolute Neuts Lymphocytes # (Manual) Prolymphocyte # Reactive Lymphs # Total Abs Lymphocytes Monocytes # (Manual) Eosinophils # (Manual) Basophils # (Manual) Metamyelocytes # (Man) Myelocytes # (Manual) Promyelocytes # (Man) Blast Cells # (Man) Plasma Cell # (Manual) Other Cells # Nucleated RBCs # (Man) Hypersegmented Neuts Hyposegmented Neuts Hypogranular Neuts Large Granular Lymphs # Lrg Granular Lymphs Hairy Cells Smudge Cells Toxic Granulation Toxic Vacuolation Dohle Bodies Bob Rods Platelet Estimate Hypogranular Platelets Clumped Platelets Giant Platelets Platelet Satelliting RBC Morphology Polychromasia Hypochromasia Poikilocytosis Basophilic Stippling Anisocytosis Microcytosis Macrocytosis Spherocytes Pappenheimer Bodies Sickle Cells Target Cells Tear Drop Cells Ovalocytes Stomatocytes Garcia[place] Bodies Echinocytes Acanthocytes (Spur) Rouleaux RBC Agglutinates Schistocytes RBC Morph Comment Sezary Cell PT (9.0-12.0) Seconds INR (0.9-1.1) APTT (21.0-31.0) Seconds PTT Ratio VBG pH (7.36-7.41) VBG pCO2 (38-50) mmHg VBG pO2 mmHg VBG HCO3 mmol/L VBG O2 Saturation % VBG Base Excess mEq/L Barometric Pressure mm/Hg POC Sodium (135-144) mmol/L Sodium 128 L (136-145) mmol/L POC Potassium (3.3-5.0) mmol/L Potassium 3.3 L (3.5-5.1) mmol/L POC Chloride (101-112) mmol/L Chloride 92 L (98-107) mmol/L Carbon Dioxide 21 (21-32) mmol/L POC Total CO2 (24-31) mEq/l Anion Gap 14.0 H (3-11) POC Anion Gap (16-25) mmol/L POC BUN (7-18) mg/dl BUN 27 H (7-18) mg/dl Creatinine 2.57 H D (0.6-1.2) mg/dl POC Creatinine (0.6-1.3) mg/dl Est Cr Clr Drug Dosing 22.8 Est GFR ( Amer) 23.8 Est GFR (Non-Af Amer) 20.5 BUN/Creatinine Ratio 10.6 (10-20) Glucose 140 H (70-99) mg/dl POC Glucose (70-99) mg/dl POC Glucose (other) (70-99) mg/dl Osmolality (280-300) mOsm/kg Lactate (0.4-2.0) mmol/L Calcium 6.7 L (8.5-10.1) mg/dl POC Ioniz Calcium Daria (1.12-1.32) mmol/l Ionized Calcium 0.84 L (1.12-1.32) mmol/L Phosphorus 1.7 L D (2.5-4.9) mg/dl Magnesium 2.1 (1.8-2.4) mg/dl Iron (35-150) mcg/dl TIBC (250-450) mcg/dl Transferrin (200-360) mg/dl Ferritin (8-388) ng/ml Total Bilirubin (0.2-1) mg/dl Direct Bilirubin (0-0.2) mg/dl AST (15-37) U/L ALT (12-78) U/L Alkaline Phosphatase (45-117) U/L Ammonia (11-32) umol/L Total Creatine Kinase (26-192) U/L Troponin I (0-0.045) ng/ml Total Protein (6.4-8.2) gm/dl Albumin (3.4-5.0) gm/dl Globulin (2.5-4.0) gm/dl Albumin/Globulin Ratio (0.9-2) Triglycerides (0-150) mg/dl Cholesterol (0-200) mg/dl LDL Cholesterol, Calc mg/dl VLDL Cholesterol, Calc mg/dl HDL Cholesterol mg/dl Cholesterol/HDL Ratio Lipase (73-393) U/L Whole Bld Vitamin B1 Vitamin B12 (211-911) pg/ml TSH (0.300-4.500) uIu/ml Free T4 (0.8-1.6) ng/dl PTH Intact 415.4 H (18.4-80.1) pg/ml Urine Color Urine Appearance (Clear) Urine pH (4.5-7.5) Ur Specific Phyllis (1.000-1.030) Urine Protein (Negative) Urine Glucose (UA) (Negative) Urine Ketones (Negative) Urine Blood (Negative) Urine Nitrite (Negative) Urine Bilirubin (Negative) Urine Urobilinogen (Negative) Ur Leukocyte Esterase (Negative) Urine WBC (Auto) (0-5) /hpf Urine RBC (Auto) (0-4) /hpf U Hyaline Cast (Auto) (0-5) /lpf U Epithel Cells (Auto) (0-5) /lpf Urine Bacteria (Auto) (Negative) Granular Casts (0) /lpf Urine Osmolality (500-800) mOsm/kg Urine Sodium mmol/L Urine Potassium mmol/L Urine Chloride mmol/L Nasal Screen MRSA (PCR) (Negative) Urine Opiates Screen (Neg) Ur Methadone, Qual (Neg) Acetaminophen Urine Barbiturates (Neg) Ur Phencyclidine (PCP) (Neg) U Amphetamin/Meth Scrn (Neg) MDMA (Ecstasy) Screen (Neg) U Benzodiazepines Scrn (Neg) Ur Cocaine Metabolite (Neg) U Marijuana (THC) Screen (Neg) Volat Analys Perform On Ethyl Alcohol mg/dL (0-3) mg/dl Methyl Alcohol Level Hepatitis A IgM Ab Hep Bs Antigen (Neg) Hep B Core IgM Ab Hepatitis C Antibody (Neg) Miscellaneous Test Blood Type Antibody Screen 06/02/19 06/02/19 06/02/19 Range/Units 17:01 13:20 13:20 WBC RBC Hgb POC Hgb (12.0-16.0) g/dl Hct POC Hct (37-47) % MCV MCH MCHC RDW Std Deviation RDW Coeff of Citlaly Plt Count MPV Immature Gran % (Auto) Neut % (Auto) Lymph % (Auto) Harlan % (Auto) Eos % (Auto) Baso % (Auto) Reticulocyte % (Auto) (0.5-2.0) % Immature Gran # (Auto) Neut # (Auto) Lymph # (Auto) Harlan # (Auto) Eos # (Auto) Baso # (Auto) Reticulocyte # (0.02-0.10) 10^6/uL Absolute Nucleated RBC Nucleated RBC % (auto) Neutrophils % (Manual) Band Neutrophils % Lymphocytes % (Manual) Prolymphocyte % Reactive Lymphs % (Man) Monocytes % (Manual) Eosinophils % (Manual) Basophils % (Manual) Metamyelocytes % (Man) Myelocytes % (Man) Promyelocytes % (Man) Blast Cells % (Manual) Plasma Cell % (Manual) Other Cells % Nucleated RBC % Neutrophils # (Manual) Band Neutrophils # Total Absolute Neuts Lymphocytes # (Manual) Prolymphocyte # Reactive Lymphs # Total Abs Lymphocytes Monocytes # (Manual) Eosinophils # (Manual) Basophils # (Manual) Metamyelocytes # (Man) Myelocytes # (Manual) Promyelocytes # (Man) Blast Cells # (Man) Plasma Cell # (Manual) Other Cells # Nucleated RBCs # (Man) Hypersegmented Neuts Hyposegmented Neuts Hypogranular Neuts Large Granular Lymphs # Lrg Granular Lymphs Hairy Cells Smudge Cells Toxic Granulation Toxic Vacuolation Dohle Bodies Bob Rods Platelet Estimate Hypogranular Platelets Clumped Platelets Giant Platelets Platelet Satelliting RBC Morphology Polychromasia Hypochromasia Poikilocytosis Basophilic Stippling Anisocytosis Microcytosis Macrocytosis Spherocytes Pappenheimer Bodies Sickle Cells Target Cells Tear Drop Cells Ovalocytes Stomatocytes [place] Bodies Echinocytes Acanthocytes (Spur) Rouleaux RBC Agglutinates Schistocytes RBC Morph Comment Sezary Cell PT (9.0-12.0) Seconds INR (0.9-1.1) APTT (21.0-31.0) Seconds PTT Ratio VBG pH (7.36-7.41) VBG pCO2 (38-50) mmHg VBG pO2 mmHg VBG HCO3 mmol/L VBG O2 Saturation % VBG Base Excess mEq/L Barometric Pressure mm/Hg POC Sodium (135-144) mmol/L Sodium 125 L (136-145) mmol/L POC Potassium (3.3-5.0) mmol/L Potassium 3.4 L (3.5-5.1) mmol/L POC Chloride (101-112) mmol/L Chloride 92 L (98-107) mmol/L Carbon Dioxide 15 L (21-32) mmol/L POC Total CO2 (24-31) mEq/l Anion Gap 18.0 H (3-11) POC Anion Gap (16-25) mmol/L POC BUN (7-18) mg/dl BUN 27 H (7-18) mg/dl Creatinine 3.22 H D (0.6-1.2) mg/dl POC Creatinine (0.6-1.3) mg/dl Est Cr Clr Drug Dosing 18.2 Est GFR ( Amer) 18.1 Est GFR (Non-Af Amer) 15.6 BUN/Creatinine Ratio 8.5 L (10-20) Glucose 162 H (70-99) mg/dl POC Glucose (70-99) mg/dl POC Glucose (other) (70-99) mg/dl Osmolality (280-300) mOsm/kg Lactate (0.4-2.0) mmol/L Calcium 6.4 L (8.5-10.1) mg/dl POC Ioniz Calcium Daria (1.12-1.32) mmol/l Ionized Calcium (1.12-1.32) mmol/L Phosphorus 2.9 D 4.4 (2.5-4.9) mg/dl Magnesium (1.8-2.4) mg/dl Iron (35-150) mcg/dl TIBC (250-450) mcg/dl Transferrin (200-360) mg/dl Ferritin (8-388) ng/ml Total Bilirubin (0.2-1) mg/dl Direct Bilirubin (0-0.2) mg/dl AST (15-37) U/L ALT (12-78) U/L Alkaline Phosphatase (45-117) U/L Ammonia (11-32) umol/L Total Creatine Kinase 567 H (26-192) U/L Troponin I 0.309 H* (0-0.045) ng/ml Total Protein (6.4-8.2) gm/dl Albumin 3.1 L (3.4-5.0) gm/dl Globulin (2.5-4.0) gm/dl Albumin/Globulin Ratio (0.9-2) Triglycerides (0-150) mg/dl Cholesterol (0-200) mg/dl LDL Cholesterol, Calc mg/dl VLDL Cholesterol, Calc mg/dl HDL Cholesterol mg/dl Cholesterol/HDL Ratio Lipase (73-393) U/L Whole Bld Vitamin B1 Vitamin B12 (211-911) pg/ml TSH (0.300-4.500) uIu/ml Free T4 (0.8-1.6) ng/dl PTH Intact (18.4-80.1) pg/ml Urine Color Urine Appearance (Clear) Urine pH (4.5-7.5) Ur Specific Phyllis (1.000-1.030) Urine Protein (Negative) Urine Glucose (UA) (Negative) Urine Ketones (Negative) Urine Blood (Negative) Urine Nitrite (Negative) Urine Bilirubin (Negative) Urine Urobilinogen (Negative) Ur Leukocyte Esterase (Negative) Urine WBC (Auto) (0-5) /hpf Urine RBC (Auto) (0-4) /hpf U Hyaline Cast (Auto) (0-5) /lpf U Epithel Cells (Auto) (0-5) /lpf Urine Bacteria (Auto) (Negative) Granular Casts (0) /lpf Urine Osmolality (500-800) mOsm/kg Urine Sodium 19 mmol/L Urine Potassium 29.7 mmol/L Urine Chloride 16 mmol/L Nasal Screen MRSA (PCR) (Negative) Urine Opiates Screen (Neg) Ur Methadone, Qual (Neg) Acetaminophen Urine Barbiturates (Neg) Ur Phencyclidine (PCP) (Neg) U Amphetamin/Meth Scrn (Neg) MDMA (Ecstasy) Screen (Neg) U Benzodiazepines Scrn (Neg) Ur Cocaine Metabolite (Neg) U Marijuana (THC) Screen (Neg) Volat Analys Perform On Ethyl Alcohol mg/dL (0-3) mg/dl Methyl Alcohol Level Hepatitis A IgM Ab Hep Bs Antigen (Neg) Hep B Core IgM Ab Hepatitis C Antibody (Neg) Miscellaneous Test Blood Type Antibody Screen 06/02/19 06/02/19 06/02/19 Range/Units 13:20 13:20 13:20 WBC RBC Hgb POC Hgb (12.0-16.0) g/dl Hct POC Hct (37-47) % MCV MCH MCHC RDW Std Deviation RDW Coeff of Citlaly Plt Count MPV Immature Gran % (Auto) Neut % (Auto) Lymph % (Auto) Harlan % (Auto) Eos % (Auto) Baso % (Auto) Reticulocyte % (Auto) 1.0 (0.5-2.0) % Immature Gran # (Auto) Neut # (Auto) Lymph # (Auto) Harlan # (Auto) Eos # (Auto) Baso # (Auto) Reticulocyte # 0.03 (0.02-0.10) 10^6/uL Absolute Nucleated RBC Nucleated RBC % (auto) Neutrophils % (Manual) Band Neutrophils % Lymphocytes % (Manual) Prolymphocyte % Reactive Lymphs % (Man) Monocytes % (Manual) Eosinophils % (Manual) Basophils % (Manual) Metamyelocytes % (Man) Myelocytes % (Man) Promyelocytes % (Man) Blast Cells % (Manual) Plasma Cell % (Manual) Other Cells % Nucleated RBC % Neutrophils # (Manual) Band Neutrophils # Total Absolute Neuts Lymphocytes # (Manual) Prolymphocyte # Reactive Lymphs # Total Abs Lymphocytes Monocytes # (Manual) Eosinophils # (Manual) Basophils # (Manual) Metamyelocytes # (Man) Myelocytes # (Manual) Promyelocytes # (Man) Blast Cells # (Man) Plasma Cell # (Manual) Other Cells # Nucleated RBCs # (Man) Hypersegmented Neuts Hyposegmented Neuts Hypogranular Neuts Large Granular Lymphs # Lrg Granular Lymphs Hairy Cells Smudge Cells Toxic Granulation Toxic Vacuolation Dohle Bodies Bob Rods Platelet Estimate Hypogranular Platelets Clumped Platelets Giant Platelets Platelet Satelliting RBC Morphology Polychromasia Hypochromasia Poikilocytosis Basophilic Stippling Anisocytosis Microcytosis Macrocytosis Spherocytes Pappenheimer Bodies Sickle Cells Target Cells Tear Drop Cells Ovalocytes Stomatocytes [place] Bodies Echinocytes Acanthocytes (Spur) Rouleaux RBC Agglutinates Schistocytes RBC Morph Comment Sezary Cell PT (9.0-12.0) Seconds INR (0.9-1.1) APTT (21.0-31.0) Seconds PTT Ratio VBG pH (7.36-7.41) VBG pCO2 (38-50) mmHg VBG pO2 mmHg VBG HCO3 mmol/L VBG O2 Saturation % VBG Base Excess mEq/L Barometric Pressure mm/Hg POC Sodium (135-144) mmol/L Sodium (136-145) mmol/L POC Potassium (3.3-5.0) mmol/L Potassium (3.5-5.1) mmol/L POC Chloride (101-112) mmol/L Chloride (98-107) mmol/L Carbon Dioxide (21-32) mmol/L POC Total CO2 (24-31) mEq/l Anion Gap (3-11) POC Anion Gap (16-25) mmol/L POC BUN (7-18) mg/dl BUN (7-18) mg/dl Creatinine (0.6-1.2) mg/dl POC Creatinine (0.6-1.3) mg/dl Est Cr Clr Drug Dosing Est GFR ( Amer) Est GFR (Non-Af Amer) BUN/Creatinine Ratio (10-20) Glucose (70-99) mg/dl POC Glucose (70-99) mg/dl POC Glucose (other) (70-99) mg/dl Osmolality (280-300) mOsm/kg Lactate (0.4-2.0) mmol/L Calcium (8.5-10.1) mg/dl POC Ioniz Calcium Daria (1.12-1.32) mmol/l Ionized Calcium (1.12-1.32) mmol/L Phosphorus (2.5-4.9) mg/dl Magnesium (1.8-2.4) mg/dl Iron (35-150) mcg/dl TIBC (250-450) mcg/dl Transferrin (200-360) mg/dl Ferritin (8-388) ng/ml Total Bilirubin (0.2-1) mg/dl Direct Bilirubin (0-0.2) mg/dl AST (15-37) U/L ALT (12-78) U/L Alkaline Phosphatase (45-117) U/L Ammonia (11-32) umol/L Total Creatine Kinase (26-192) U/L Troponin I (0-0.045) ng/ml Total Protein (6.4-8.2) gm/dl Albumin (3.4-5.0) gm/dl Globulin (2.5-4.0) gm/dl Albumin/Globulin Ratio (0.9-2) Triglycerides (0-150) mg/dl Cholesterol (0-200) mg/dl LDL Cholesterol, Calc mg/dl VLDL Cholesterol, Calc mg/dl HDL Cholesterol mg/dl Cholesterol/HDL Ratio Lipase (73-393) U/L Whole Bld Vitamin B1 Vitamin B12 (211-911) pg/ml TSH (0.300-4.500) uIu/ml Free T4 (0.8-1.6) ng/dl PTH Intact (18.4-80.1) pg/ml Urine Color Urine Appearance (Clear) Urine pH (4.5-7.5) Ur Specific Phyllis (1.000-1.030) Urine Protein (Negative) Urine Glucose (UA) (Negative) Urine Ketones (Negative) Urine Blood (Negative) Urine Nitrite (Negative) Urine Bilirubin (Negative) Urine Urobilinogen (Negative) Ur Leukocyte Esterase (Negative) Urine WBC (Auto) (0-5) /hpf Urine RBC (Auto) (0-4) /hpf U Hyaline Cast (Auto) (0-5) /lpf U Epithel Cells (Auto) (0-5) /lpf Urine Bacteria (Auto) (Negative) Granular Casts (0) /lpf Urine Osmolality 337 L (500-800) mOsm/kg Urine Sodium mmol/L Urine Potassium mmol/L Urine Chloride mmol/L Nasal Screen MRSA (PCR) (Negative) Urine Opiates Screen (Neg) Ur Methadone, Qual (Neg) Acetaminophen Urine Barbiturates (Neg) Ur Phencyclidine (PCP) (Neg) U Amphetamin/Meth Scrn (Neg) MDMA (Ecstasy) Screen (Neg) U Benzodiazepines Scrn (Neg) Ur Cocaine Metabolite (Neg) U Marijuana (THC) Screen (Neg) Volat Analys Perform On Ethyl Alcohol mg/dL (0-3) mg/dl Methyl Alcohol Level Hepatitis A IgM Ab Hep Bs Antigen (Neg) Hep B Core IgM Ab Hepatitis C Antibody (Neg) Miscellaneous Test Blood Type O Positive Antibody Screen NEGATIVE 06/02/19 06/02/19 06/02/19 Range/Units 13:20 13:20 13:20 WBC RBC Hgb POC Hgb (12.0-16.0) g/dl Hct POC Hct (37-47) % MCV MCH MCHC RDW Std Deviation RDW Coeff of Citlaly Plt Count MPV Immature Gran % (Auto) Neut % (Auto) Lymph % (Auto) Harlan % (Auto) Eos % (Auto) Baso % (Auto) Reticulocyte % (Auto) (0.5-2.0) % Immature Gran # (Auto) Neut # (Auto) Lymph # (Auto) Harlan # (Auto) Eos # (Auto) Baso # (Auto) Reticulocyte # (0.02-0.10) 10^6/uL Absolute Nucleated RBC Nucleated RBC % (auto) Neutrophils % (Manual) Band Neutrophils % Lymphocytes % (Manual) Prolymphocyte % Reactive Lymphs % (Man) Monocytes % (Manual) Eosinophils % (Manual) Basophils % (Manual) Metamyelocytes % (Man) Myelocytes % (Man) Promyelocytes % (Man) Blast Cells % (Manual) Plasma Cell % (Manual) Other Cells % Nucleated RBC % Neutrophils # (Manual) Band Neutrophils # Total Absolute Neuts Lymphocytes # (Manual) Prolymphocyte # Reactive Lymphs # Total Abs Lymphocytes Monocytes # (Manual) Eosinophils # (Manual) Basophils # (Manual) Metamyelocytes # (Man) Myelocytes # (Manual) Promyelocytes # (Man) Blast Cells # (Man) Plasma Cell # (Manual) Other Cells # Nucleated RBCs # (Man) Hypersegmented Neuts Hyposegmented Neuts Hypogranular Neuts Large Granular Lymphs # Lrg Granular Lymphs Hairy Cells Smudge Cells Toxic Granulation Toxic Vacuolation Dohle Bodies Bob Rods Platelet Estimate Hypogranular Platelets Clumped Platelets Giant Platelets Platelet Satelliting RBC Morphology Polychromasia Hypochromasia Poikilocytosis Basophilic Stippling Anisocytosis Microcytosis Macrocytosis Spherocytes Pappenheimer Bodies Sickle Cells Target Cells Tear Drop Cells Ovalocytes Stomatocytes [place] Bodies Echinocytes Acanthocytes (Spur) Rouleaux RBC Agglutinates Schistocytes RBC Morph Comment Sezary Cell PT (9.0-12.0) Seconds INR (0.9-1.1) APTT (21.0-31.0) Seconds PTT Ratio VBG pH 7.34 L (7.36-7.41) VBG pCO2 29 L (38-50) mmHg VBG pO2 45 mmHg VBG HCO3 16 mmol/L VBG O2 Saturation 76.7 % VBG Base Excess -8.7 mEq/L Barometric Pressure 730.0 mm/Hg POC Sodium (135-144) mmol/L Sodium 122 L (136-145) mmol/L POC Potassium (3.3-5.0) mmol/L Potassium 3.6 (3.5-5.1) mmol/L POC Chloride (101-112) mmol/L Chloride 91 L (98-107) mmol/L Carbon Dioxide 15 L (21-32) mmol/L POC Total CO2 (24-31) mEq/l Anion Gap 16.0 H (3-11) POC Anion Gap (16-25) mmol/L POC BUN (7-18) mg/dl BUN 24 H (7-18) mg/dl Creatinine 3.96 H D (0.6-1.2) mg/dl POC Creatinine (0.6-1.3) mg/dl Est Cr Clr Drug Dosing 14.8 Est GFR ( Amer) 14.1 Est GFR (Non-Af Amer) 12.2 BUN/Creatinine Ratio 6.2 L (10-20) Glucose 149 H (70-99) mg/dl POC Glucose (70-99) mg/dl POC Glucose (other) (70-99) mg/dl Osmolality (280-300) mOsm/kg Lactate 5.7 H* (0.4-2.0) mmol/L Calcium 6.3 L (8.5-10.1) mg/dl POC Ioniz Calcium Daria (1.12-1.32) mmol/l Ionized Calcium (1.12-1.32) mmol/L Phosphorus (2.5-4.9) mg/dl Magnesium (1.8-2.4) mg/dl Iron 177 H (35-150) mcg/dl TIBC 176 L (250-450) mcg/dl Transferrin 126 L (200-360) mg/dl Ferritin 8105.5 H (8-388) ng/ml Total Bilirubin (0.2-1) mg/dl Direct Bilirubin (0-0.2) mg/dl AST (15-37) U/L ALT (12-78) U/L Alkaline Phosphatase (45-117) U/L Ammonia (11-32) umol/L Total Creatine Kinase 579 H (26-192) U/L Troponin I (0-0.045) ng/ml Total Protein (6.4-8.2) gm/dl Albumin (3.4-5.0) gm/dl Globulin (2.5-4.0) gm/dl Albumin/Globulin Ratio (0.9-2) Triglycerides (0-150) mg/dl Cholesterol (0-200) mg/dl LDL Cholesterol, Calc mg/dl VLDL Cholesterol, Calc mg/dl HDL Cholesterol mg/dl Cholesterol/HDL Ratio Lipase (73-393) U/L Whole Bld Vitamin B1 Vitamin B12 (211-911) pg/ml TSH (0.300-4.500) uIu/ml Free T4 (0.8-1.6) ng/dl PTH Intact (18.4-80.1) pg/ml Urine Color Urine Appearance (Clear) Urine pH (4.5-7.5) Ur Specific Phyllis (1.000-1.030) Urine Protein (Negative) Urine Glucose (UA) (Negative) Urine Ketones (Negative) Urine Blood (Negative) Urine Nitrite (Negative) Urine Bilirubin (Negative) Urine Urobilinogen (Negative) Ur Leukocyte Esterase (Negative) Urine WBC (Auto) (0-5) /hpf Urine RBC (Auto) (0-4) /hpf U Hyaline Cast (Auto) (0-5) /lpf U Epithel Cells (Auto) (0-5) /lpf Urine Bacteria (Auto) (Negative) Granular Casts (0) /lpf Urine Osmolality (500-800) mOsm/kg Urine Sodium mmol/L Urine Potassium mmol/L Urine Chloride mmol/L Nasal Screen MRSA (PCR) (Negative) Urine Opiates Screen (Neg) Ur Methadone, Qual (Neg) Acetaminophen Urine Barbiturates (Neg) Ur Phencyclidine (PCP) (Neg) U Amphetamin/Meth Scrn (Neg) MDMA (Ecstasy) Screen (Neg) U Benzodiazepines Scrn (Neg) Ur Cocaine Metabolite (Neg) U Marijuana (THC) Screen (Neg) Volat Analys Perform On Ethyl Alcohol mg/dL (0-3) mg/dl Methyl Alcohol Level Hepatitis A IgM Ab Hep Bs Antigen (Neg) Hep B Core IgM Ab Hepatitis C Antibody (Neg) Miscellaneous Test Blood Type Antibody Screen 06/02/19 06/02/19 06/02/19 Range/Units 13:19 13:19 13:19 WBC RBC Hgb POC Hgb (12.0-16.0) g/dl Hct POC Hct (37-47) % MCV MCH MCHC RDW Std Deviation RDW Coeff of Citlaly Plt Count MPV Immature Gran % (Auto) Neut % (Auto) Lymph % (Auto) Harlan % (Auto) Eos % (Auto) Baso % (Auto) Reticulocyte % (Auto) (0.5-2.0) % Immature Gran # (Auto) Neut # (Auto) Lymph # (Auto) Harlan # (Auto) Eos # (Auto) Baso # (Auto) Reticulocyte # (0.02-0.10) 10^6/uL Absolute Nucleated RBC Nucleated RBC % (auto) Neutrophils % (Manual) Band Neutrophils % Lymphocytes % (Manual) Prolymphocyte % Reactive Lymphs % (Man) Monocytes % (Manual) Eosinophils % (Manual) Basophils % (Manual) Metamyelocytes % (Man) Myelocytes % (Man) Promyelocytes % (Man) Blast Cells % (Manual) Plasma Cell % (Manual) Other Cells % Nucleated RBC % Neutrophils # (Manual) Band Neutrophils # Total Absolute Neuts Lymphocytes # (Manual) Prolymphocyte # Reactive Lymphs # Total Abs Lymphocytes Monocytes # (Manual) Eosinophils # (Manual) Basophils # (Manual) Metamyelocytes # (Man) Myelocytes # (Manual) Promyelocytes # (Man) Blast Cells # (Man) Plasma Cell # (Manual) Other Cells # Nucleated RBCs # (Man) Hypersegmented Neuts Hyposegmented Neuts Hypogranular Neuts Large Granular Lymphs # Lrg Granular Lymphs Hairy Cells Smudge Cells Toxic Granulation Toxic Vacuolation Dohle Bodies Bob Rods Platelet Estimate Hypogranular Platelets Clumped Platelets Giant Platelets Platelet Satelliting RBC Morphology Polychromasia Hypochromasia Poikilocytosis Basophilic Stippling Anisocytosis Microcytosis Macrocytosis Spherocytes Pappenheimer Bodies Sickle Cells Target Cells Tear Drop Cells Ovalocytes Stomatocytes [place] Bodies Echinocytes Acanthocytes (Spur) Rouleaux RBC Agglutinates Schistocytes RBC Morph Comment Sezary Cell PT (9.0-12.0) Seconds INR (0.9-1.1) APTT (21.0-31.0) Seconds PTT Ratio VBG pH (7.36-7.41) VBG pCO2 (38-50) mmHg VBG pO2 mmHg VBG HCO3 mmol/L VBG O2 Saturation % VBG Base Excess mEq/L Barometric Pressure mm/Hg POC Sodium (135-144) mmol/L Sodium (136-145) mmol/L POC Potassium (3.3-5.0) mmol/L Potassium (3.5-5.1) mmol/L POC Chloride (101-112) mmol/L Chloride (98-107) mmol/L Carbon Dioxide (21-32) mmol/L POC Total CO2 (24-31) mEq/l Anion Gap (3-11) POC Anion Gap (16-25) mmol/L POC BUN (7-18) mg/dl BUN (7-18) mg/dl Creatinine (0.6-1.2) mg/dl POC Creatinine (0.6-1.3) mg/dl Est Cr Clr Drug Dosing Est GFR ( Amer) Est GFR (Non-Af Amer) BUN/Creatinine Ratio (10-20) Glucose (70-99) mg/dl POC Glucose (70-99) mg/dl POC Glucose (other) (70-99) mg/dl Osmolality 287 (280-300) mOsm/kg Lactate (0.4-2.0) mmol/L Calcium (8.5-10.1) mg/dl POC Ioniz Calcium Daria (1.12-1.32) mmol/l Ionized Calcium (1.12-1.32) mmol/L Phosphorus (2.5-4.9) mg/dl Magnesium (1.8-2.4) mg/dl Iron (35-150) mcg/dl TIBC (250-450) mcg/dl Transferrin (200-360) mg/dl Ferritin (8-388) ng/ml Total Bilirubin (0.2-1) mg/dl Direct Bilirubin (0-0.2) mg/dl AST (15-37) U/L ALT (12-78) U/L Alkaline Phosphatase (45-117) U/L Ammonia (11-32) umol/L Total Creatine Kinase (26-192) U/L Troponin I (0-0.045) ng/ml Total Protein (6.4-8.2) gm/dl Albumin (3.4-5.0) gm/dl Globulin (2.5-4.0) gm/dl Albumin/Globulin Ratio (0.9-2) Triglycerides (0-150) mg/dl Cholesterol (0-200) mg/dl LDL Cholesterol, Calc mg/dl VLDL Cholesterol, Calc mg/dl HDL Cholesterol mg/dl Cholesterol/HDL Ratio Lipase (73-393) U/L Whole Bld Vitamin B1 Vitamin B12 (211-911) pg/ml TSH (0.300-4.500) uIu/ml Free T4 (0.8-1.6) ng/dl PTH Intact (18.4-80.1) pg/ml Urine Color Urine Appearance (Clear) Urine pH (4.5-7.5) Ur Specific Phyllis (1.000-1.030) Urine Protein (Negative) Urine Glucose (UA) (Negative) Urine Ketones (Negative) Urine Blood (Negative) Urine Nitrite (Negative) Urine Bilirubin (Negative) Urine Urobilinogen (Negative) Ur Leukocyte Esterase (Negative) Urine WBC (Auto) (0-5) /hpf Urine RBC (Auto) (0-4) /hpf U Hyaline Cast (Auto) (0-5) /lpf U Epithel Cells (Auto) (0-5) /lpf Urine Bacteria (Auto) (Negative) Granular Casts (0) /lpf Urine Osmolality (500-800) mOsm/kg Urine Sodium mmol/L Urine Potassium mmol/L Urine Chloride mmol/L Nasal Screen MRSA (PCR) (Negative) Urine Opiates Screen (Neg) Ur Methadone, Qual (Neg) Acetaminophen Cancelled Urine Barbiturates (Neg) Ur Phencyclidine (PCP) (Neg) U Amphetamin/Meth Scrn (Neg) MDMA (Ecstasy) Screen (Neg) U Benzodiazepines Scrn (Neg) Ur Cocaine Metabolite (Neg) U Marijuana (THC) Screen (Neg) Volat Analys Perform On Ethyl Alcohol mg/dL (0-3) mg/dl Methyl Alcohol Level Hepatitis A IgM Ab Hep Bs Antigen (Neg) Hep B Core IgM Ab Hepatitis C Antibody (Neg) Miscellaneous Test Pending Blood Type Antibody Screen 06/02/19 06/02/19 06/02/19 Range/Units 13:19 13:19 12:38 WBC RBC Hgb POC Hgb (12.0-16.0) g/dl Hct POC Hct (37-47) % MCV MCH MCHC RDW Std Deviation RDW Coeff of Citlaly Plt Count MPV Immature Gran % (Auto) Neut % (Auto) Lymph % (Auto) Harlan % (Auto) Eos % (Auto) Baso % (Auto) Reticulocyte % (Auto) (0.5-2.0) % Immature Gran # (Auto) Neut # (Auto) Lymph # (Auto) Harlan # (Auto) Eos # (Auto) Baso # (Auto) Reticulocyte # (0.02-0.10) 10^6/uL Absolute Nucleated RBC Nucleated RBC % (auto) Neutrophils % (Manual) Band Neutrophils % Lymphocytes % (Manual) Prolymphocyte % Reactive Lymphs % (Man) Monocytes % (Manual) Eosinophils % (Manual) Basophils % (Manual) Metamyelocytes % (Man) Myelocytes % (Man) Promyelocytes % (Man) Blast Cells % (Manual) Plasma Cell % (Manual) Other Cells % Nucleated RBC % Neutrophils # (Manual) Band Neutrophils # Total Absolute Neuts Lymphocytes # (Manual) Prolymphocyte # Reactive Lymphs # Total Abs Lymphocytes Monocytes # (Manual) Eosinophils # (Manual) Basophils # (Manual) Metamyelocytes # (Man) Myelocytes # (Manual) Promyelocytes # (Man) Blast Cells # (Man) Plasma Cell # (Manual) Other Cells # Nucleated RBCs # (Man) Hypersegmented Neuts Hyposegmented Neuts Hypogranular Neuts Large Granular Lymphs # Lrg Granular Lymphs Hairy Cells Smudge Cells Toxic Granulation Toxic Vacuolation Dohle Bodies Bob Rods Platelet Estimate Hypogranular Platelets Clumped Platelets Giant Platelets Platelet Satelliting RBC Morphology Polychromasia Hypochromasia Poikilocytosis Basophilic Stippling Anisocytosis Microcytosis Macrocytosis Spherocytes Pappenheimer Bodies Sickle Cells Target Cells Tear Drop Cells Ovalocytes Stomatocytes [place] Bodies Echinocytes Acanthocytes (Spur) Rouleaux RBC Agglutinates Schistocytes RBC Morph Comment Sezary Cell PT 61.5 H (9.0-12.0) Seconds INR 6.5 H* (0.9-1.1) APTT (21.0-31.0) Seconds PTT Ratio VBG pH (7.36-7.41) VBG pCO2 (38-50) mmHg VBG pO2 mmHg VBG HCO3 mmol/L VBG O2 Saturation % VBG Base Excess mEq/L Barometric Pressure mm/Hg POC Sodium (135-144) mmol/L Sodium (136-145) mmol/L POC Potassium (3.3-5.0) mmol/L Potassium (3.5-5.1) mmol/L POC Chloride (101-112) mmol/L Chloride (98-107) mmol/L Carbon Dioxide (21-32) mmol/L POC Total CO2 (24-31) mEq/l Anion Gap (3-11) POC Anion Gap (16-25) mmol/L POC BUN (7-18) mg/dl BUN (7-18) mg/dl Creatinine (0.6-1.2) mg/dl POC Creatinine (0.6-1.3) mg/dl Est Cr Clr Drug Dosing Est GFR ( Amer) Est GFR (Non-Af Amer) BUN/Creatinine Ratio (10-20) Glucose (70-99) mg/dl POC Glucose (70-99) mg/dl POC Glucose (other) (70-99) mg/dl Osmolality (280-300) mOsm/kg Lactate (0.4-2.0) mmol/L Calcium (8.5-10.1) mg/dl POC Ioniz Calcium Daria (1.12-1.32) mmol/l Ionized Calcium 0.75 L* (1.12-1.32) mmol/L Phosphorus (2.5-4.9) mg/dl Magnesium (1.8-2.4) mg/dl Iron (35-150) mcg/dl TIBC (250-450) mcg/dl Transferrin (200-360) mg/dl Ferritin (8-388) ng/ml Total Bilirubin (0.2-1) mg/dl Direct Bilirubin (0-0.2) mg/dl AST (15-37) U/L ALT (12-78) U/L Alkaline Phosphatase (45-117) U/L Ammonia (11-32) umol/L Total Creatine Kinase (26-192) U/L Troponin I (0-0.045) ng/ml Total Protein (6.4-8.2) gm/dl Albumin (3.4-5.0) gm/dl Globulin (2.5-4.0) gm/dl Albumin/Globulin Ratio (0.9-2) Triglycerides (0-150) mg/dl Cholesterol (0-200) mg/dl LDL Cholesterol, Calc mg/dl VLDL Cholesterol, Calc mg/dl HDL Cholesterol mg/dl Cholesterol/HDL Ratio Lipase (73-393) U/L Whole Bld Vitamin B1 Vitamin B12 (211-911) pg/ml TSH (0.300-4.500) uIu/ml Free T4 (0.8-1.6) ng/dl PTH Intact (18.4-80.1) pg/ml Urine Color Urine Appearance (Clear) Urine pH (4.5-7.5) Ur Specific Phyllis (1.000-1.030) Urine Protein (Negative) Urine Glucose (UA) (Negative) Urine Ketones (Negative) Urine Blood (Negative) Urine Nitrite (Negative) Urine Bilirubin (Negative) Urine Urobilinogen (Negative) Ur Leukocyte Esterase (Negative) Urine WBC (Auto) (0-5) /hpf Urine RBC (Auto) (0-4) /hpf U Hyaline Cast (Auto) (0-5) /lpf U Epithel Cells (Auto) (0-5) /lpf Urine Bacteria (Auto) (Negative) Granular Casts (0) /lpf Urine Osmolality (500-800) mOsm/kg Urine Sodium mmol/L Urine Potassium mmol/L Urine Chloride mmol/L Nasal Screen MRSA (PCR) (Negative) Urine Opiates Screen (Neg) Ur Methadone, Qual (Neg) Acetaminophen Urine Barbiturates (Neg) Ur Phencyclidine (PCP) (Neg) U Amphetamin/Meth Scrn (Neg) MDMA (Ecstasy) Screen (Neg) U Benzodiazepines Scrn (Neg) Ur Cocaine Metabolite (Neg) U Marijuana (THC) Screen (Neg) Volat Analys Perform On Ethyl Alcohol mg/dL (0-3) mg/dl Methyl Alcohol Level Hepatitis A IgM Ab Hep Bs Antigen (Neg) Hep B Core IgM Ab Hepatitis C Antibody (Neg) Miscellaneous Test Pending Blood Type Antibody Screen 06/02/19 06/02/19 06/02/19 Range/Units 11:59 11:59 11:59 WBC RBC Hgb POC Hgb (12.0-16.0) g/dl Hct POC Hct (37-47) % MCV MCH MCHC RDW Std Deviation RDW Coeff of Citlaly Plt Count MPV Immature Gran % (Auto) Neut % (Auto) Lymph % (Auto) Harlan % (Auto) Eos % (Auto) Baso % (Auto) Reticulocyte % (Auto) (0.5-2.0) % Immature Gran # (Auto) Neut # (Auto) Lymph # (Auto) Harlan # (Auto) Eos # (Auto) Baso # (Auto) Reticulocyte # (0.02-0.10) 10^6/uL Absolute Nucleated RBC Nucleated RBC % (auto) Neutrophils % (Manual) Band Neutrophils % Lymphocytes % (Manual) Prolymphocyte % Reactive Lymphs % (Man) Monocytes % (Manual) Eosinophils % (Manual) Basophils % (Manual) Metamyelocytes % (Man) Myelocytes % (Man) Promyelocytes % (Man) Blast Cells % (Manual) Plasma Cell % (Manual) Other Cells % Nucleated RBC % Neutrophils # (Manual) Band Neutrophils # Total Absolute Neuts Lymphocytes # (Manual) Prolymphocyte # Reactive Lymphs # Total Abs Lymphocytes Monocytes # (Manual) Eosinophils # (Manual) Basophils # (Manual) Metamyelocytes # (Man) Myelocytes # (Manual) Promyelocytes # (Man) Blast Cells # (Man) Plasma Cell # (Manual) Other Cells # Nucleated RBCs # (Man) Hypersegmented Neuts Hyposegmented Neuts Hypogranular Neuts Large Granular Lymphs # Lrg Granular Lymphs Hairy Cells Smudge Cells Toxic Granulation Toxic Vacuolation Dohle Bodies Bob Rods Platelet Estimate Hypogranular Platelets Clumped Platelets Giant Platelets Platelet Satelliting RBC Morphology Polychromasia Hypochromasia Poikilocytosis Basophilic Stippling Anisocytosis Microcytosis Macrocytosis Spherocytes Pappenheimer Bodies Sickle Cells Target Cells Tear Drop Cells Ovalocytes Stomatocytes [place] Bodies Echinocytes Acanthocytes (Spur) Rouleaux RBC Agglutinates Schistocytes RBC Morph Comment Sezary Cell PT (9.0-12.0) Seconds INR (0.9-1.1) APTT (21.0-31.0) Seconds PTT Ratio VBG pH (7.36-7.41) VBG pCO2 (38-50) mmHg VBG pO2 mmHg VBG HCO3 mmol/L VBG O2 Saturation % VBG Base Excess mEq/L Barometric Pressure mm/Hg POC Sodium (135-144) mmol/L Sodium (136-145) mmol/L POC Potassium (3.3-5.0) mmol/L Potassium (3.5-5.1) mmol/L POC Chloride (101-112) mmol/L Chloride (98-107) mmol/L Carbon Dioxide (21-32) mmol/L POC Total CO2 (24-31) mEq/l Anion Gap (3-11) POC Anion Gap (16-25) mmol/L POC BUN (7-18) mg/dl BUN (7-18) mg/dl Creatinine (0.6-1.2) mg/dl POC Creatinine (0.6-1.3) mg/dl Est Cr Clr Drug Dosing Est GFR ( Amer) Est GFR (Non-Af Amer) BUN/Creatinine Ratio (10-20) Glucose (70-99) mg/dl POC Glucose (70-99) mg/dl POC Glucose (other) (70-99) mg/dl Osmolality (280-300) mOsm/kg Lactate (0.4-2.0) mmol/L Calcium (8.5-10.1) mg/dl POC Ioniz Calcium Daria (1.12-1.32) mmol/l Ionized Calcium (1.12-1.32) mmol/L Phosphorus (2.5-4.9) mg/dl Magnesium (1.8-2.4) mg/dl Iron (35-150) mcg/dl TIBC (250-450) mcg/dl Transferrin (200-360) mg/dl Ferritin (8-388) ng/ml Total Bilirubin (0.2-1) mg/dl Direct Bilirubin (0-0.2) mg/dl AST (15-37) U/L ALT (12-78) U/L Alkaline Phosphatase (45-117) U/L Ammonia (11-32) umol/L Total Creatine Kinase (26-192) U/L Troponin I (0-0.045) ng/ml Total Protein (6.4-8.2) gm/dl Albumin (3.4-5.0) gm/dl Globulin (2.5-4.0) gm/dl Albumin/Globulin Ratio (0.9-2) Triglycerides (0-150) mg/dl Cholesterol (0-200) mg/dl LDL Cholesterol, Calc mg/dl VLDL Cholesterol, Calc mg/dl HDL Cholesterol mg/dl Cholesterol/HDL Ratio Lipase (73-393) U/L Whole Bld Vitamin B1 Pending Vitamin B12 > 2000 H (211-911) pg/ml TSH (0.300-4.500) uIu/ml Free T4 (0.8-1.6) ng/dl PTH Intact (18.4-80.1) pg/ml Urine Color Urine Appearance (Clear) Urine pH (4.5-7.5) Ur Specific Phyllis (1.000-1.030) Urine Protein (Negative) Urine Glucose (UA) (Negative) Urine Ketones (Negative) Urine Blood (Negative) Urine Nitrite (Negative) Urine Bilirubin (Negative) Urine Urobilinogen (Negative) Ur Leukocyte Esterase (Negative) Urine WBC (Auto) (0-5) /hpf Urine RBC (Auto) (0-4) /hpf U Hyaline Cast (Auto) (0-5) /lpf U Epithel Cells (Auto) (0-5) /lpf Urine Bacteria (Auto) (Negative) Granular Casts (0) /lpf Urine Osmolality (500-800) mOsm/kg Urine Sodium mmol/L Urine Potassium mmol/L Urine Chloride mmol/L Nasal Screen MRSA (PCR) (Negative) Urine Opiates Screen (Neg) Ur Methadone, Qual (Neg) Acetaminophen Urine Barbiturates (Neg) Ur Phencyclidine (PCP) (Neg) U Amphetamin/Meth Scrn (Neg) MDMA (Ecstasy) Screen (Neg) U Benzodiazepines Scrn (Neg) Ur Cocaine Metabolite (Neg) U Marijuana (THC) Screen (Neg) Volat Analys Perform On Pending Ethyl Alcohol mg/dL (0-3) mg/dl Methyl Alcohol Level Pending Hepatitis A IgM Ab Pending Hep Bs Antigen Neg (Neg) Hep B Core IgM Ab Pending Hepatitis C Antibody Neg (Neg) Miscellaneous Test Blood Type Antibody Screen 06/02/19 06/02/19 06/02/19 Range/Units 11:45 11:45 10:41 WBC 6.25 RBC 3.53 L Hgb 11.7 L POC Hgb (12.0-16.0) g/dl Hct 36.7 L POC Hct (37-47) % MCV 104.0 H MCH 33.1 MCHC 31.9 L RDW Std Deviation 56.3 H RDW Coeff of Citlaly 14.9 H Plt Count 89 L MPV 11.5 H Immature Gran % (Auto) 0.2 Neut % (Auto) 88.6 Lymph % (Auto) 5.4 Harlan % (Auto) 5.4 Eos % (Auto) 0.2 Baso % (Auto) 0.2 Reticulocyte % (Auto) (0.5-2.0) % Immature Gran # (Auto) 0.01 Neut # (Auto) 5.54 Lymph # (Auto) 0.34 L Harlan # (Auto) 0.34 Eos # (Auto) 0.01 Baso # (Auto) 0.01 Reticulocyte # (0.02-0.10) 10^6/uL Absolute Nucleated RBC Nucleated RBC % (auto) Neutrophils % (Manual) Band Neutrophils % Lymphocytes % (Manual) Prolymphocyte % Reactive Lymphs % (Man) Monocytes % (Manual) Eosinophils % (Manual) Basophils % (Manual) Metamyelocytes % (Man) Myelocytes % (Man) Promyelocytes % (Man) Blast Cells % (Manual) Plasma Cell % (Manual) Other Cells % Nucleated RBC % Neutrophils # (Manual) Band Neutrophils # Total Absolute Neuts Lymphocytes # (Manual) Prolymphocyte # Reactive Lymphs # Total Abs Lymphocytes Monocytes # (Manual) Eosinophils # (Manual) Basophils # (Manual) Metamyelocytes # (Man) Myelocytes # (Manual) Promyelocytes # (Man) Blast Cells # (Man) Plasma Cell # (Manual) Other Cells # Nucleated RBCs # (Man) Hypersegmented Neuts Hyposegmented Neuts Hypogranular Neuts Large Granular Lymphs # Lrg Granular Lymphs Hairy Cells Smudge Cells Toxic Granulation Toxic Vacuolation 2+ Dohle Bodies Bob Rods Platelet Estimate Decreased L Hypogranular Platelets Clumped Platelets Giant Platelets Platelet Satelliting RBC Morphology Polychromasia Hypochromasia Poikilocytosis Basophilic Stippling Anisocytosis Microcytosis Macrocytosis Spherocytes Pappenheimer Bodies Sickle Cells Target Cells Tear Drop Cells Ovalocytes Stomatocytes Garcia[place] Bodies Echinocytes 1+ Acanthocytes (Spur) Rouleaux RBC Agglutinates Schistocytes RBC Morph Comment Sezary Cell PT (9.0-12.0) Seconds INR (0.9-1.1) APTT (21.0-31.0) Seconds PTT Ratio VBG pH (7.36-7.41) VBG pCO2 (38-50) mmHg VBG pO2 mmHg VBG HCO3 mmol/L VBG O2 Saturation % VBG Base Excess mEq/L Barometric Pressure mm/Hg POC Sodium (135-144) mmol/L Sodium (136-145) mmol/L POC Potassium (3.3-5.0) mmol/L Potassium (3.5-5.1) mmol/L POC Chloride (101-112) mmol/L Chloride (98-107) mmol/L Carbon Dioxide (21-32) mmol/L POC Total CO2 (24-31) mEq/l Anion Gap (3-11) POC Anion Gap (16-25) mmol/L POC BUN (7-18) mg/dl BUN (7-18) mg/dl Creatinine (0.6-1.2) mg/dl POC Creatinine (0.6-1.3) mg/dl Est Cr Clr Drug Dosing Est GFR ( Amer) Est GFR (Non-Af Amer) BUN/Creatinine Ratio (10-20) Glucose (70-99) mg/dl POC Glucose 128 H (70-99) mg/dl POC Glucose (other) (70-99) mg/dl Osmolality (280-300) mOsm/kg Lactate (0.4-2.0) mmol/L Calcium (8.5-10.1) mg/dl POC Ioniz Calcium Daria (1.12-1.32) mmol/l Ionized Calcium (1.12-1.32) mmol/L Phosphorus (2.5-4.9) mg/dl Magnesium (1.8-2.4) mg/dl Iron (35-150) mcg/dl TIBC (250-450) mcg/dl Transferrin (200-360) mg/dl Ferritin (8-388) ng/ml Total Bilirubin (0.2-1) mg/dl Direct Bilirubin (0-0.2) mg/dl AST (15-37) U/L ALT (12-78) U/L Alkaline Phosphatase (45-117) U/L Ammonia (11-32) umol/L Total Creatine Kinase (26-192) U/L Troponin I (0-0.045) ng/ml Total Protein (6.4-8.2) gm/dl Albumin (3.4-5.0) gm/dl Globulin (2.5-4.0) gm/dl Albumin/Globulin Ratio (0.9-2) Triglycerides (0-150) mg/dl Cholesterol (0-200) mg/dl LDL Cholesterol, Calc mg/dl VLDL Cholesterol, Calc mg/dl HDL Cholesterol mg/dl Cholesterol/HDL Ratio Lipase (73-393) U/L Whole Bld Vitamin B1 Vitamin B12 (211-911) pg/ml TSH (0.300-4.500) uIu/ml Free T4 (0.8-1.6) ng/dl PTH Intact (18.4-80.1) pg/ml Urine Color Urine Appearance (Clear) Urine pH (4.5-7.5) Ur Specific Phyllis (1.000-1.030) Urine Protein (Negative) Urine Glucose (UA) (Negative) Urine Ketones (Negative) Urine Blood (Negative) Urine Nitrite (Negative) Urine Bilirubin (Negative) Urine Urobilinogen (Negative) Ur Leukocyte Esterase (Negative) Urine WBC (Auto) (0-5) /hpf Urine RBC (Auto) (0-4) /hpf U Hyaline Cast (Auto) (0-5) /lpf U Epithel Cells (Auto) (0-5) /lpf Urine Bacteria (Auto) (Negative) Granular Casts (0) /lpf Urine Osmolality (500-800) mOsm/kg Urine Sodium mmol/L Urine Potassium mmol/L Urine Chloride mmol/L Nasal Screen MRSA (PCR) Negative (Negative) Urine Opiates Screen (Neg) Ur Methadone, Qual (Neg) Acetaminophen Urine Barbiturates (Neg) Ur Phencyclidine (PCP) (Neg) U Amphetamin/Meth Scrn (Neg) MDMA (Ecstasy) Screen (Neg) U Benzodiazepines Scrn (Neg) Ur Cocaine Metabolite (Neg) U Marijuana (THC) Screen (Neg) Volat Analys Perform On Ethyl Alcohol mg/dL (0-3) mg/dl Methyl Alcohol Level Hepatitis A IgM Ab Hep Bs Antigen (Neg) Hep B Core IgM Ab Hepatitis C Antibody (Neg) Miscellaneous Test Blood Type Antibody Screen 06/02/19 06/02/19 06/02/19 Range/Units 10:21 10:16 09:27 WBC Cancelled RBC Cancelled Hgb Cancelled POC Hgb (12.0-16.0) g/dl Hct Cancelled POC Hct (37-47) % MCV Cancelled MCH Cancelled MCHC Cancelled RDW Std Deviation Cancelled RDW Coeff of Citlaly Cancelled Plt Count Cancelled MPV Cancelled Immature Gran % (Auto) Cancelled Neut % (Auto) Cancelled Lymph % (Auto) Cancelled Harlan % (Auto) Cancelled Eos % (Auto) Cancelled Baso % (Auto) Cancelled Reticulocyte % (Auto) (0.5-2.0) % Immature Gran # (Auto) Cancelled Neut # (Auto) Cancelled Lymph # (Auto) Cancelled Harlan # (Auto) Cancelled Eos # (Auto) Cancelled Baso # (Auto) Cancelled Reticulocyte # (0.02-0.10) 10^6/uL Absolute Nucleated RBC Cancelled Nucleated RBC % (auto) Cancelled Neutrophils % (Manual) Cancelled Band Neutrophils % Cancelled Lymphocytes % (Manual) Cancelled Prolymphocyte % Cancelled Reactive Lymphs % (Man) Cancelled Monocytes % (Manual) Cancelled Eosinophils % (Manual) Cancelled Basophils % (Manual) Cancelled Metamyelocytes % (Man) Cancelled Myelocytes % (Man) Cancelled Promyelocytes % (Man) Cancelled Blast Cells % (Manual) Cancelled Plasma Cell % (Manual) Cancelled Other Cells % Cancelled Nucleated RBC % Cancelled Neutrophils # (Manual) Cancelled Band Neutrophils # Cancelled Total Absolute Neuts Cancelled Lymphocytes # (Manual) Cancelled Prolymphocyte # Cancelled Reactive Lymphs # Cancelled Total Abs Lymphocytes Cancelled Monocytes # (Manual) Cancelled Eosinophils # (Manual) Cancelled Basophils # (Manual) Cancelled Metamyelocytes # (Man) Cancelled Myelocytes # (Manual) Cancelled Promyelocytes # (Man) Cancelled Blast Cells # (Man) Cancelled Plasma Cell # (Manual) Cancelled Other Cells # Cancelled Nucleated RBCs # (Man) Cancelled Hypersegmented Neuts Cancelled Hyposegmented Neuts Cancelled Hypogranular Neuts Cancelled Large Granular Lymphs Cancelled # Lrg Granular Lymphs Cancelled Hairy Cells Cancelled Smudge Cells Cancelled Toxic Granulation Cancelled Toxic Vacuolation Cancelled Dohle Bodies Cancelled Bob Rods Cancelled Platelet Estimate Cancelled Hypogranular Platelets Cancelled Clumped Platelets Cancelled Giant Platelets Cancelled Platelet Satelliting Cancelled RBC Morphology Cancelled Polychromasia Cancelled Hypochromasia Cancelled Poikilocytosis Cancelled Basophilic Stippling Cancelled Anisocytosis Cancelled Microcytosis Cancelled Macrocytosis Cancelled Spherocytes Cancelled Pappenheimer Bodies Cancelled Sickle Cells Cancelled Target Cells Cancelled Tear Drop Cells Cancelled Ovalocytes Cancelled Stomatocytes Cancelled [place] Bodies Cancelled Echinocytes Cancelled Acanthocytes (Spur) Cancelled Rouleaux Cancelled RBC Agglutinates Cancelled Schistocytes Cancelled RBC Morph Comment Cancelled Sezary Cell Cancelled PT (9.0-12.0) Seconds INR (0.9-1.1) APTT (21.0-31.0) Seconds PTT Ratio VBG pH (7.36-7.41) VBG pCO2 (38-50) mmHg VBG pO2 mmHg VBG HCO3 mmol/L VBG O2 Saturation % VBG Base Excess mEq/L Barometric Pressure mm/Hg POC Sodium (135-144) mmol/L Sodium (136-145) mmol/L POC Potassium (3.3-5.0) mmol/L Potassium (3.5-5.1) mmol/L POC Chloride (101-112) mmol/L Chloride (98-107) mmol/L Carbon Dioxide (21-32) mmol/L POC Total CO2 (24-31) mEq/l Anion Gap (3-11) POC Anion Gap (16-25) mmol/L POC BUN (7-18) mg/dl BUN (7-18) mg/dl Creatinine (0.6-1.2) mg/dl POC Creatinine (0.6-1.3) mg/dl Est Cr Clr Drug Dosing Est GFR ( Amer) Est GFR (Non-Af Amer) BUN/Creatinine Ratio (10-20) Glucose (70-99) mg/dl POC Glucose 74 (70-99) mg/dl POC Glucose (other) (70-99) mg/dl Osmolality (280-300) mOsm/kg Lactate (0.4-2.0) mmol/L Calcium (8.5-10.1) mg/dl POC Ioniz Calcium Daria (1.12-1.32) mmol/l Ionized Calcium (1.12-1.32) mmol/L Phosphorus (2.5-4.9) mg/dl Magnesium (1.8-2.4) mg/dl Iron (35-150) mcg/dl TIBC (250-450) mcg/dl Transferrin (200-360) mg/dl Ferritin (8-388) ng/ml Total Bilirubin (0.2-1) mg/dl Direct Bilirubin (0-0.2) mg/dl AST (15-37) U/L ALT (12-78) U/L Alkaline Phosphatase (45-117) U/L Ammonia (11-32) umol/L Total Creatine Kinase (26-192) U/L Troponin I (0-0.045) ng/ml Total Protein (6.4-8.2) gm/dl Albumin (3.4-5.0) gm/dl Globulin (2.5-4.0) gm/dl Albumin/Globulin Ratio (0.9-2) Triglycerides (0-150) mg/dl Cholesterol (0-200) mg/dl LDL Cholesterol, Calc mg/dl VLDL Cholesterol, Calc mg/dl HDL Cholesterol mg/dl Cholesterol/HDL Ratio Lipase (73-393) U/L Whole Bld Vitamin B1 Vitamin B12 (211-911) pg/ml TSH (0.300-4.500) uIu/ml Free T4 (0.8-1.6) ng/dl PTH Intact (18.4-80.1) pg/ml Urine Color Urine Appearance (Clear) Urine pH (4.5-7.5) Ur Specific Phyllis (1.000-1.030) Urine Protein (Negative) Urine Glucose (UA) (Negative) Urine Ketones (Negative) Urine Blood (Negative) Urine Nitrite (Negative) Urine Bilirubin (Negative) Urine Urobilinogen (Negative) Ur Leukocyte Esterase (Negative) Urine WBC (Auto) (0-5) /hpf Urine RBC (Auto) (0-4) /hpf U Hyaline Cast (Auto) (0-5) /lpf U Epithel Cells (Auto) (0-5) /lpf Urine Bacteria (Auto) (Negative) Granular Casts (0) /lpf Urine Osmolality (500-800) mOsm/kg Urine Sodium mmol/L Urine Potassium mmol/L Urine Chloride mmol/L Nasal Screen MRSA (PCR) (Negative) Urine Opiates Screen Neg (Neg) Ur Methadone, Qual Neg (Neg) Acetaminophen Urine Barbiturates Neg (Neg) Ur Phencyclidine (PCP) Neg (Neg) U Amphetamin/Meth Scrn Neg (Neg) MDMA (Ecstasy) Screen Neg (Neg) U Benzodiazepines Scrn Neg (Neg) Ur Cocaine Metabolite Neg (Neg) U Marijuana (THC) Screen Neg (Neg) Volat Analys Perform On Ethyl Alcohol mg/dL (0-3) mg/dl Methyl Alcohol Level Hepatitis A IgM Ab Hep Bs Antigen (Neg) Hep B Core IgM Ab Hepatitis C Antibody (Neg) Miscellaneous Test Blood Type Antibody Screen 06/02/19 06/02/19 06/02/19 Range/Units 09:27 09:24 09:24 WBC RBC Hgb POC Hgb (12.0-16.0) g/dl Hct POC Hct (37-47) % MCV MCH MCHC RDW Std Deviation RDW Coeff of Citlaly Plt Count MPV Immature Gran % (Auto) Neut % (Auto) Lymph % (Auto) Harlan % (Auto) Eos % (Auto) Baso % (Auto) Reticulocyte % (Auto) (0.5-2.0) % Immature Gran # (Auto) Neut # (Auto) Lymph # (Auto) Harlan # (Auto) Eos # (Auto) Baso # (Auto) Reticulocyte # (0.02-0.10) 10^6/uL Absolute Nucleated RBC Nucleated RBC % (auto) Neutrophils % (Manual) Band Neutrophils % Lymphocytes % (Manual) Prolymphocyte % Reactive Lymphs % (Man) Monocytes % (Manual) Eosinophils % (Manual) Basophils % (Manual) Metamyelocytes % (Man) Myelocytes % (Man) Promyelocytes % (Man) Blast Cells % (Manual) Plasma Cell % (Manual) Other Cells % Nucleated RBC % Neutrophils # (Manual) Band Neutrophils # Total Absolute Neuts Lymphocytes # (Manual) Prolymphocyte # Reactive Lymphs # Total Abs Lymphocytes Monocytes # (Manual) Eosinophils # (Manual) Basophils # (Manual) Metamyelocytes # (Man) Myelocytes # (Manual) Promyelocytes # (Man) Blast Cells # (Man) Plasma Cell # (Manual) Other Cells # Nucleated RBCs # (Man) Hypersegmented Neuts Hyposegmented Neuts Hypogranular Neuts Large Granular Lymphs # Lrg Granular Lymphs Hairy Cells Smudge Cells Toxic Granulation Toxic Vacuolation Dohle Bodies Bob Rods Platelet Estimate Hypogranular Platelets Clumped Platelets Giant Platelets Platelet Satelliting RBC Morphology Polychromasia Hypochromasia Poikilocytosis Basophilic Stippling Anisocytosis Microcytosis Macrocytosis Spherocytes Pappenheimer Bodies Sickle Cells Target Cells Tear Drop Cells Ovalocytes Stomatocytes [place] Bodies Echinocytes Acanthocytes (Spur) Rouleaux RBC Agglutinates Schistocytes RBC Morph Comment Sezary Cell PT (9.0-12.0) Seconds INR (0.9-1.1) APTT (21.0-31.0) Seconds PTT Ratio VBG pH (7.36-7.41) VBG pCO2 (38-50) mmHg VBG pO2 mmHg VBG HCO3 mmol/L VBG O2 Saturation % VBG Base Excess mEq/L Barometric Pressure mm/Hg POC Sodium (135-144) mmol/L Sodium (136-145) mmol/L POC Potassium (3.3-5.0) mmol/L Potassium 4.2 (3.5-5.1) mmol/L POC Chloride (101-112) mmol/L Chloride (98-107) mmol/L Carbon Dioxide (21-32) mmol/L POC Total CO2 (24-31) mEq/l Anion Gap (3-11) POC Anion Gap (16-25) mmol/L POC BUN (7-18) mg/dl BUN (7-18) mg/dl Creatinine (0.6-1.2) mg/dl POC Creatinine (0.6-1.3) mg/dl Est Cr Clr Drug Dosing Est GFR ( Amer) Est GFR (Non-Af Amer) BUN/Creatinine Ratio (10-20) Glucose (70-99) mg/dl POC Glucose (70-99) mg/dl POC Glucose (other) (70-99) mg/dl Osmolality (280-300) mOsm/kg Lactate (0.4-2.0) mmol/L Calcium (8.5-10.1) mg/dl POC Ioniz Calcium Daria (1.12-1.32) mmol/l Ionized Calcium (1.12-1.32) mmol/L Phosphorus (2.5-4.9) mg/dl Magnesium 1.8 (1.8-2.4) mg/dl Iron (35-150) mcg/dl TIBC (250-450) mcg/dl Transferrin (200-360) mg/dl Ferritin (8-388) ng/ml Total Bilirubin (0.2-1) mg/dl Direct Bilirubin (0-0.2) mg/dl AST 6653 H (15-37) U/L ALT (12-78) U/L Alkaline Phosphatase (45-117) U/L Ammonia (11-32) umol/L Total Creatine Kinase (26-192) U/L Troponin I (0-0.045) ng/ml Total Protein (6.4-8.2) gm/dl Albumin (3.4-5.0) gm/dl Globulin (2.5-4.0) gm/dl Albumin/Globulin Ratio (0.9-2) Triglycerides (0-150) mg/dl Cholesterol (0-200) mg/dl LDL Cholesterol, Calc mg/dl VLDL Cholesterol, Calc mg/dl HDL Cholesterol mg/dl Cholesterol/HDL Ratio Lipase (73-393) U/L Whole Bld Vitamin B1 Vitamin B12 (211-911) pg/ml TSH (0.300-4.500) uIu/ml Free T4 (0.8-1.6) ng/dl PTH Intact (18.4-80.1) pg/ml Urine Color Dark Yellow Urine Appearance Cloudy A (Clear) Urine pH 5.0 (4.5-7.5) Ur Specific Phyllis 1.024 (1.000-1.030) Urine Protein 2+ H (Negative) Urine Glucose (UA) Negative (Negative) Urine Ketones 1+ H (Negative) Urine Blood 3+ H (Negative) Urine Nitrite Positive A (Negative) Urine Bilirubin 2+ H (Negative) Urine Urobilinogen Negative (Negative) Ur Leukocyte Esterase Trace H (Negative) Urine WBC (Auto) 10-30 H (0-5) /hpf Urine RBC (Auto) 10-30 H (0-4) /hpf U Hyaline Cast (Auto) >30 H (0-5) /lpf U Epithel Cells (Auto) >30 H (0-5) /lpf Urine Bacteria (Auto) Negative (Negative) Granular Casts 10-20 H (0) /lpf Urine Osmolality (500-800) mOsm/kg Urine Sodium mmol/L Urine Potassium mmol/L Urine Chloride mmol/L Nasal Screen MRSA (PCR) (Negative) Urine Opiates Screen (Neg) Ur Methadone, Qual (Neg) Acetaminophen Urine Barbiturates (Neg) Ur Phencyclidine (PCP) (Neg) U Amphetamin/Meth Scrn (Neg) MDMA (Ecstasy) Screen (Neg) U Benzodiazepines Scrn (Neg) Ur Cocaine Metabolite (Neg) U Marijuana (THC) Screen (Neg) Volat Analys Perform On Ethyl Alcohol mg/dL < 3.0 (0-3) mg/dl Methyl Alcohol Level Hepatitis A IgM Ab Hep Bs Antigen (Neg) Hep B Core IgM Ab Hepatitis C Antibody (Neg) Miscellaneous Test Blood Type Antibody Screen 06/02/19 06/02/19 06/02/19 Range/Units 09:23 09:23 09:23 WBC Cancelled RBC Cancelled Hgb Cancelled POC Hgb (12.0-16.0) g/dl Hct Cancelled POC Hct (37-47) % MCV Cancelled MCH Cancelled MCHC Cancelled RDW Std Deviation Cancelled RDW Coeff of Citlaly Cancelled Plt Count Cancelled MPV Cancelled Immature Gran % (Auto) Cancelled Neut % (Auto) Cancelled Lymph % (Auto) Cancelled Harlan % (Auto) Cancelled Eos % (Auto) Cancelled Baso % (Auto) Cancelled Reticulocyte % (Auto) (0.5-2.0) % Immature Gran # (Auto) Cancelled Neut # (Auto) Cancelled Lymph # (Auto) Cancelled Harlan # (Auto) Cancelled Eos # (Auto) Cancelled Baso # (Auto) Cancelled Reticulocyte # (0.02-0.10) 10^6/uL Absolute Nucleated RBC Cancelled Nucleated RBC % (auto) Cancelled Neutrophils % (Manual) Cancelled Band Neutrophils % Cancelled Lymphocytes % (Manual) Cancelled Prolymphocyte % Cancelled Reactive Lymphs % (Man) Cancelled Monocytes % (Manual) Cancelled Eosinophils % (Manual) Cancelled Basophils % (Manual) Cancelled Metamyelocytes % (Man) Cancelled Myelocytes % (Man) Cancelled Promyelocytes % (Man) Cancelled Blast Cells % (Manual) Cancelled Plasma Cell % (Manual) Cancelled Other Cells % Cancelled Nucleated RBC % Cancelled Neutrophils # (Manual) Cancelled Band Neutrophils # Cancelled Total Absolute Neuts Cancelled Lymphocytes # (Manual) Cancelled Prolymphocyte # Cancelled Reactive Lymphs # Cancelled Total Abs Lymphocytes Cancelled Monocytes # (Manual) Cancelled Eosinophils # (Manual) Cancelled Basophils # (Manual) Cancelled Metamyelocytes # (Man) Cancelled Myelocytes # (Manual) Cancelled Promyelocytes # (Man) Cancelled Blast Cells # (Man) Cancelled Plasma Cell # (Manual) Cancelled Other Cells # Cancelled Nucleated RBCs # (Man) Cancelled Hypersegmented Neuts Cancelled Hyposegmented Neuts Cancelled Hypogranular Neuts Cancelled Large Granular Lymphs Cancelled # Lrg Granular Lymphs Cancelled Hairy Cells Cancelled Smudge Cells Cancelled Toxic Granulation Cancelled Toxic Vacuolation Cancelled Dohle Bodies Cancelled Bob Rods Cancelled Platelet Estimate Cancelled Hypogranular Platelets Cancelled Clumped Platelets Cancelled Giant Platelets Cancelled Platelet Satelliting Cancelled RBC Morphology Cancelled Polychromasia Cancelled Hypochromasia Cancelled Poikilocytosis Cancelled Basophilic Stippling Cancelled Anisocytosis Cancelled Microcytosis Cancelled Macrocytosis Cancelled Spherocytes Cancelled Pappenheimer Bodies Cancelled Sickle Cells Cancelled Target Cells Cancelled Tear Drop Cells Cancelled Ovalocytes Cancelled Stomatocytes Cancelled [place] Bodies Cancelled Echinocytes Cancelled Acanthocytes (Spur) Cancelled Rouleaux Cancelled RBC Agglutinates Cancelled Schistocytes Cancelled RBC Morph Comment Cancelled Sezary Cell Cancelled PT (9.0-12.0) Seconds INR (0.9-1.1) APTT (21.0-31.0) Seconds PTT Ratio VBG pH (7.36-7.41) VBG pCO2 (38-50) mmHg VBG pO2 mmHg VBG HCO3 mmol/L VBG O2 Saturation % VBG Base Excess mEq/L Barometric Pressure mm/Hg POC Sodium (135-144) mmol/L Sodium (136-145) mmol/L POC Potassium (3.3-5.0) mmol/L Potassium (3.5-5.1) mmol/L POC Chloride (101-112) mmol/L Chloride (98-107) mmol/L Carbon Dioxide (21-32) mmol/L POC Total CO2 (24-31) mEq/l Anion Gap (3-11) POC Anion Gap (16-25) mmol/L POC BUN (7-18) mg/dl BUN (7-18) mg/dl Creatinine (0.6-1.2) mg/dl POC Creatinine (0.6-1.3) mg/dl Est Cr Clr Drug Dosing Est GFR ( Amer) Est GFR (Non-Af Amer) BUN/Creatinine Ratio (10-20) Glucose (70-99) mg/dl POC Glucose (70-99) mg/dl POC Glucose (other) (70-99) mg/dl Osmolality (280-300) mOsm/kg Lactate 8.1 H* (0.4-2.0) mmol/L Calcium (8.5-10.1) mg/dl POC Ioniz Calcium Daria (1.12-1.32) mmol/l Ionized Calcium (1.12-1.32) mmol/L Phosphorus (2.5-4.9) mg/dl Magnesium (1.8-2.4) mg/dl Iron (35-150) mcg/dl TIBC (250-450) mcg/dl Transferrin (200-360) mg/dl Ferritin (8-388) ng/ml Total Bilirubin (0.2-1) mg/dl Direct Bilirubin (0-0.2) mg/dl AST (15-37) U/L ALT (12-78) U/L Alkaline Phosphatase (45-117) U/L Ammonia 73.7 H (11-32) umol/L Total Creatine Kinase (26-192) U/L Troponin I (0-0.045) ng/ml Total Protein (6.4-8.2) gm/dl Albumin (3.4-5.0) gm/dl Globulin (2.5-4.0) gm/dl Albumin/Globulin Ratio (0.9-2) Triglycerides (0-150) mg/dl Cholesterol (0-200) mg/dl LDL Cholesterol, Calc mg/dl VLDL Cholesterol, Calc mg/dl HDL Cholesterol mg/dl Cholesterol/HDL Ratio Lipase (73-393) U/L Whole Bld Vitamin B1 Vitamin B12 (211-911) pg/ml TSH (0.300-4.500) uIu/ml Free T4 (0.8-1.6) ng/dl PTH Intact (18.4-80.1) pg/ml Urine Color Urine Appearance (Clear) Urine pH (4.5-7.5) Ur Specific Phyllis (1.000-1.030) Urine Protein (Negative) Urine Glucose (UA) (Negative) Urine Ketones (Negative) Urine Blood (Negative) Urine Nitrite (Negative) Urine Bilirubin (Negative) Urine Urobilinogen (Negative) Ur Leukocyte Esterase (Negative) Urine WBC (Auto) (0-5) /hpf Urine RBC (Auto) (0-4) /hpf U Hyaline Cast (Auto) (0-5) /lpf U Epithel Cells (Auto) (0-5) /lpf Urine Bacteria (Auto) (Negative) Granular Casts (0) /lpf Urine Osmolality (500-800) mOsm/kg Urine Sodium mmol/L Urine Potassium mmol/L Urine Chloride mmol/L Nasal Screen MRSA (PCR) (Negative) Urine Opiates Screen (Neg) Ur Methadone, Qual (Neg) Acetaminophen Urine Barbiturates (Neg) Ur Phencyclidine (PCP) (Neg) U Amphetamin/Meth Scrn (Neg) MDMA (Ecstasy) Screen (Neg) U Benzodiazepines Scrn (Neg) Ur Cocaine Metabolite (Neg) U Marijuana (THC) Screen (Neg) Volat Analys Perform On Ethyl Alcohol mg/dL (0-3) mg/dl Methyl Alcohol Level Hepatitis A IgM Ab Hep Bs Antigen (Neg) Hep B Core IgM Ab Hepatitis C Antibody (Neg) Miscellaneous Test Blood Type Antibody Screen 06/02/19 06/02/19 06/02/19 Range/Units 08:56 08:42 08:42 WBC RBC Hgb POC Hgb 15.6 (12.0-16.0) g/dl Hct POC Hct 46 (37-47) % MCV MCH MCHC RDW Std Deviation RDW Coeff of Citlaly Plt Count MPV Immature Gran % (Auto) Neut % (Auto) Lymph % (Auto) Harlan % (Auto) Eos % (Auto) Baso % (Auto) Reticulocyte % (Auto) (0.5-2.0) % Immature Gran # (Auto) Neut # (Auto) Lymph # (Auto) Harlan # (Auto) Eos # (Auto) Baso # (Auto) Reticulocyte # (0.02-0.10) 10^6/uL Absolute Nucleated RBC Nucleated RBC % (auto) Neutrophils % (Manual) Band Neutrophils % Lymphocytes % (Manual) Prolymphocyte % Reactive Lymphs % (Man) Monocytes % (Manual) Eosinophils % (Manual) Basophils % (Manual) Metamyelocytes % (Man) Myelocytes % (Man) Promyelocytes % (Man) Blast Cells % (Manual) Plasma Cell % (Manual) Other Cells % Nucleated RBC % Neutrophils # (Manual) Band Neutrophils # Total Absolute Neuts Lymphocytes # (Manual) Prolymphocyte # Reactive Lymphs # Total Abs Lymphocytes Monocytes # (Manual) Eosinophils # (Manual) Basophils # (Manual) Metamyelocytes # (Man) Myelocytes # (Manual) Promyelocytes # (Man) Blast Cells # (Man) Plasma Cell # (Manual) Other Cells # Nucleated RBCs # (Man) Hypersegmented Neuts Hyposegmented Neuts Hypogranular Neuts Large Granular Lymphs # Lrg Granular Lymphs Hairy Cells Smudge Cells Toxic Granulation Toxic Vacuolation Dohle Bodies Bob Rods Platelet Estimate Hypogranular Platelets Clumped Platelets Giant Platelets Platelet Satelliting RBC Morphology Polychromasia Hypochromasia Poikilocytosis Basophilic Stippling Anisocytosis Microcytosis Macrocytosis Spherocytes Pappenheimer Bodies Sickle Cells Target Cells Tear Drop Cells Ovalocytes Stomatocytes Garcia[place] Bodies Echinocytes Acanthocytes (Spur) Rouleaux RBC Agglutinates Schistocytes RBC Morph Comment Sezary Cell PT 64.7 H (9.0-12.0) Seconds INR 6.8 H* (0.9-1.1) APTT 49.7 H* (21.0-31.0) Seconds PTT Ratio 1.8 VBG pH (7.36-7.41) VBG pCO2 (38-50) mmHg VBG pO2 mmHg VBG HCO3 mmol/L VBG O2 Saturation % VBG Base Excess mEq/L Barometric Pressure mm/Hg POC Sodium 119 L* (135-144) mmol/L Sodium 119 L* (136-145) mmol/L POC Potassium 5.1 H (3.3-5.0) mmol/L Potassium (3.5-5.1) mmol/L POC Chloride 87 L (101-112) mmol/L Chloride 82 L (98-107) mmol/L Carbon Dioxide 15 L (21-32) mmol/L POC Total CO2 17 L (24-31) mEq/l Anion Gap 22.0 H (3-11) POC Anion Gap 21.0 (16-25) mmol/L POC BUN 31 H (7-18) mg/dl BUN 25 H (7-18) mg/dl Creatinine 5.43 H* (0.6-1.2) mg/dl POC Creatinine 6.0 H* (0.6-1.3) mg/dl Est Cr Clr Drug Dosing Not Reportable Est GFR ( Amer) 9.6 Est GFR (Non-Af Amer) 8.3 BUN/Creatinine Ratio 4.6 L (10-20) Glucose 29 L* (70-99) mg/dl POC Glucose (70-99) mg/dl POC Glucose (other) 31 L* (70-99) mg/dl Osmolality (280-300) mOsm/kg Lactate (0.4-2.0) mmol/L Calcium 7.1 L (8.5-10.1) mg/dl POC Ioniz Calcium Daria 0.69 L* (1.12-1.32) mmol/l Ionized Calcium (1.12-1.32) mmol/L Phosphorus (2.5-4.9) mg/dl Magnesium (1.8-2.4) mg/dl Iron (35-150) mcg/dl TIBC (250-450) mcg/dl Transferrin (200-360) mg/dl Ferritin (8-388) ng/ml Total Bilirubin 7.3 H (0.2-1) mg/dl Direct Bilirubin (0-0.2) mg/dl AST (15-37) U/L ALT 1702 H (12-78) U/L Alkaline Phosphatase 227 H (45-117) U/L Ammonia (11-32) umol/L Total Creatine Kinase (26-192) U/L Troponin I 0.341 H* (0-0.045) ng/ml Total Protein 7.8 (6.4-8.2) gm/dl Albumin 3.6 (3.4-5.0) gm/dl Globulin 4.2 H (2.5-4.0) gm/dl Albumin/Globulin Ratio 0.9 (0.9-2) Triglycerides (0-150) mg/dl Cholesterol (0-200) mg/dl LDL Cholesterol, Calc mg/dl VLDL Cholesterol, Calc mg/dl HDL Cholesterol mg/dl Cholesterol/HDL Ratio Lipase 2391 H (73-393) U/L Whole Bld Vitamin B1 Vitamin B12 (211-911) pg/ml TSH 7.660 H (0.300-4.500) uIu/ml Free T4 0.97 (0.8-1.6) ng/dl PTH Intact (18.4-80.1) pg/ml Urine Color Urine Appearance (Clear) Urine pH (4.5-7.5) Ur Specific Phyllis (1.000-1.030) Urine Protein (Negative) Urine Glucose (UA) (Negative) Urine Ketones (Negative) Urine Blood (Negative) Urine Nitrite (Negative) Urine Bilirubin (Negative) Urine Urobilinogen (Negative) Ur Leukocyte Esterase (Negative) Urine WBC (Auto) (0-5) /hpf Urine RBC (Auto) (0-4) /hpf U Hyaline Cast (Auto) (0-5) /lpf U Epithel Cells (Auto) (0-5) /lpf Urine Bacteria (Auto) (Negative) Granular Casts (0) /lpf Urine Osmolality (500-800) mOsm/kg Urine Sodium mmol/L Urine Potassium mmol/L Urine Chloride mmol/L Nasal Screen MRSA (PCR) (Negative) Urine Opiates Screen (Neg) Ur Methadone, Qual (Neg) Acetaminophen Urine Barbiturates (Neg) Ur Phencyclidine (PCP) (Neg) U Amphetamin/Meth Scrn (Neg) MDMA (Ecstasy) Screen (Neg) U Benzodiazepines Scrn (Neg) Ur Cocaine Metabolite (Neg) U Marijuana (THC) Screen (Neg) Volat Analys Perform On Ethyl Alcohol mg/dL (0-3) mg/dl Methyl Alcohol Level Hepatitis A IgM Ab Hep Bs Antigen (Neg) Hep B Core IgM Ab Hepatitis C Antibody (Neg) Miscellaneous Test Blood Type Antibody Screen Coding Level of Care Code 68495 Subseq Hosp Care Lvl 3 Diagnoses Acute liver failure K72.00 Hepatic coma status: without hepatic coma Alcohol dependence syndrome F10.288 Substance use status: other alcohol-induced disorder Hepatic encephalopathy K72.90 Hepatorenal failure K76.7 Elevated troponin R79.89 ARF (acute renal failure) N17.8 Acute renal failure type: with other specified pathological lesion Hallucinations R44.3 Acute hyponatremia E87.1 Pancreatitis K85.20 Acute pancreatitis complication: unspecified Chronicity: acute Pancreatitis type: alcohol induced (1) Alcohol dependence syndrome Substance use status: other alcohol-induced disorder Qualified Code(s): F10.288 - Alcohol dependence with other alcohol-induced disorder (2) ARF (acute renal failure) Acute renal failure type: with other specified pathological lesion Qualified Code(s): N17.8 - Other acute kidney failure (3) Pancreatitis Acute pancreatitis complication: unspecified Chronicity: acute Pancreatitis type: alcohol induced Qualified Code(s): K85.20 - Alcohol induced acute pancreatitis without necrosis or infection (4) Acute liver failure Hepatic coma status: without hepatic coma Qualified Code(s): K72.00 - Acute and subacute hepatic failure without coma
[2019-06-03] MEDS ORDERED: LEVOTHYROXINE SODIUM 62.5 MCG in SYRINGE 0 ML IV SCH (09:00)
[2019-06-03] MEDS: LACTULOSE SYRUP 30 GM/45 ML UDP PO SCH ×2 (09:40→19:58)
[2019-06-03] MEDS: FOLIC ACID 1 MG TAB PO SCH (09:40)
[2019-06-03] MEDS: THIAMINE HCL 500 MG in 0.9 % SODIUM CHLORIDE 100 ML IV SCH ×3 (09:40→20:01)
[2019-06-03] MEDS: PANTOprazole 40 MG TAB PO SCH (09:41)
[2019-06-03] MEDS: ALBUMIN 25% 50 ML IV SCH ×6 (09:42→14:18)
--- NOTE | 2019-06-03 09:43 | Electrocardiogram Report ---
Test Reason : Blood Pressure : / mmHG Vent. Rate : 103 BPM Atrial Rate : 103 BPM P-R Int : 152 ms QRS Dur : 080 ms QT Int : 364 ms P-R-T Axes : 045 025 028 degrees QTc Int : 476 ms Poor data quality, interpretation may be adversely affected Sinus tachycardia Inferior infarct (cited on or before 15-MAY-2018) Abnormal ECG When compared with ECG of 02-JUN-2019 08:42, Nonspecific T wave abnormality now evident in Inferior leads QT has shortened Confirmed by Luis Fernando Crawford ([id number]) on 06/03/2019 9:42:43 AM Referred By: REFERRED SELF Confirmed By:Luis Fernando Crawford
--- NOTE | 2019-06-03 10:06 | Hospitalist Progress Note ---
Date of Service June 03, 2019 Assessment & Plan (1) Acute alteration in mental status: Suspect multifactorial due to alcohol withdrawal/hallucinosis, acute liver failure (hepatic encephalopathy), insomnia (likely secondary to liver failure) (2) Acute hepatic failure: Suspected severe alcohol induced hepatitis Hepatitis panel negative to date. Acetaminophen level pending as unable to run this here due to elevated bilirubin. Bilirubin stable, poor prognostic sign. Improving LFTs unclear if just due to reduced hepatocyte mass. INR improved with 10mg Vit K therefore unclear whether this represents true improvement Bleeding prevention - continue stress ulcer prophylaxis with pantoprazole 40mg QAM Infection - urine culture negative to date, CXR clear, no ascites, no further antibiotics indicated at this stage, will continue to monitor for signs of infection Possible acetaminophen overdose - management as below Hemodynamic management - stop midodrine as BP now normalized, ST on telemetry, volume status euvolemic Electrolyte abnormalities - monitor PO, Mg, BMP Q12H and replace as necessary until stable Discontinued octreotide after discussion with ICU. Appreciate ongoing gastrointestinal recommendations, discussed with Dr Carroll (3) Acetaminophen overdose: Possible. Etiology much more likely alcohol. Acetaminophen level is send out test, expected back on as per the lab. Will continue on NAC until then or otherwise advised by GI. (4) Acute renal failure: Improving. Suspect mostly pre-renal given rapid improvement with BP with vasopressin. Appreciate nephrology recommendations (5) Hallucinations: Liver failure, sleep deprivation Improving s/p interventions in the ED (6) Elevated troponin: Serial troponin stable. Suspected related to demand-ischemia due to above. EKG WNL ECHO with no wall motion abnormalities. (7) UTI (urinary tract infection): Possible, nitrites positive on UA but bacteria negative, will treat if culture positive Hold further antibiotics for now. (8) History of ETOH abuse: As noted in HPI. Current use. Unable to give me last known drink today. EtOH on admission is neg. Started on tapering dose of Librium from ICU and will continue this. Possibly home gabapentin use is preventing withdrawal issues. (9) Alcohol withdrawal: Librium taper as above (10) Pancreatitis: Noted on CTAP, hx of same Deferred IV fluids to ICU Lipase elevated, will repeat with AM labs Monitor (11) Acute hyponatremia: Hx of mild hypoNa noted Recently poor PO intake with ongoing alcohol use Rapid correction suggests due to hypovolemia. If mental status continues will need to assess for cerebral edema. (12) Anxiety: Monitor (13) GERD (gastroesophageal reflux disease): continue home meds (14) Chronic back pain: Holding off gabapentin in setting of NEERAJ as above (15) Hepatic steatosis: noted on imaging (16) HTN (hypertension): Holding all anti-hypertensives. Also discontinued midodrine as no ascites and BP now normal. (17) Hypothyroidism: Switch levothyroxine to NG tube. (18) Lactic acidosis: Secondary to alcohol. Continue to monitor, improving. (19) Sinus tachycardia: Suspected multiple etiologies; alcohol withdrawal, dehydration, NEERAJ, acute hepatitis. (20) DVT prophylaxis: SCDs as per ICU. Will reassess for chemical anticoagulation if Hgb stable tomorrow. Admission and Anticipated Discharge Date Admission Date: June 02, 2019 Subjective Patient seen in ICU prior to transfer. Continues to have hallucinations as per RN. Patient not orientated to time, place or person. Mumbling answers. Denies any pain at this time. Unable to provide a history due to altered mental state. Review of Systems Review of Systems: Unobtainable due to cognitive status Physical Exam Constitutional: + disheveled and cooperative; no acute distress Eyes: + scleral abnormality (icteric) and PERRL; + EOM not intact (does not track finger therefore unable to assess) ENMT: Mouth: + dry oral mucous membranes Neck: normal visual inspection and trachea midline Respiratory: normal respiratory effort, lungs clear to auscultation no respiratory distress Cardiovascular: Rate/Rhythm: regular rhythm and + tachycardic Heart Sounds: no murmur Vessels: no JVD Extremities: normal capillary refill; no calf tenderness and no pedal edema Gastrointestinal (Abdomen): Inspection/Auscultation: + abdomen distended and normal bowel sounds Percussion/Palpation: abdomen soft; abdomen nontender, no guarding and abdomen not rigid Skin: Jaundiced appearance Neurologic: moves all extremities, awake and + confused; no focal motor deficits (limited exam due to cognitive state but following commands) Motor/Sensory: no tremor Psychiatric: Orientation: alert; + not oriented x 3 Results & Data Results & Data ([facility]) Vital Signs (Past 12 Hours) Vital Signs Pulse Resp BP Pulse Ox 06/03/19 05:11 103 H 24 155/77 H 91 06/03/19 05:00 99 H 23 91 06/03/19 04:55 98 H 28 H 137/85 93 06/03/19 04:40 100 H 28 H 140/83 91 06/03/19 04:25 101 H 32 H 162/80 H 93 06/03/19 04:10 110 H 29 H 152/84 H 91 06/03/19 04:00 102 H 28 H 92 06/03/19 03:56 22 153/77 H 91 06/03/19 03:40 120 H 34 H 161/120 H 94 06/03/19 03:25 104 H 24 149/80 H 96 06/03/19 03:10 107 H 20 144/84 H 90 06/03/19 03:00 100 H 25 H 95 06/03/19 02:55 101 H 27 H 154/87 H 95 06/03/19 02:40 98 H 22 141/82 H 93 06/03/19 02:27 101 H 23 153/98 H 95 06/03/19 02:10 97 H 27 H 137/91 06/03/19 02:00 99 H 22 06/03/19 01:55 100 H 25 H 137/90 95 06/03/19 01:40 100 H 23 143/96 H 94 06/03/19 01:25 97 H 25 H 127/90 95 06/03/19 01:10 105 H 25 H 139/99 95 06/03/19 01:00 107 H 22 94 06/03/19 00:56 112 H 23 138/105 H 95 06/03/19 00:40 108 H 28 H 151/101 H 97 06/03/19 00:32 100 H 22 135/96 96 06/03/19 00:10 99 H 21 108/79 93 06/03/19 00:00 95 H 30 H 94 06/02/19 23:59 102 H 06/02/19 23:55 101 H 17 107/91 93 06/02/19 23:40 104 H 34 H 127/81 95 06/02/19 23:26 129 H 26 H 109/96 94 06/02/19 23:19 102 H 25 H 131/83 95 06/02/19 23:10 102 H 19 174/167 H 94 06/02/19 23:00 105 H 24 94 06/02/19 22:55 104 H 18 139/106 H 95 06/02/19 22:40 109 H 24 146/100 H 94 06/02/19 22:25 100 H 20 131/104 H 94 06/02/19 22:23 21 145/98 H 93 06/02/19 22:00 97 H 24 95 PG Care Time/CCT Total # of Minutes Spent Total Time Spent with Patient: Total time spent is greater than 50% in coordination of care (as documented) at patient's floor/unit and/or counseling patient: Coding Level of Care Code 48588 Subseq Hosp Care Lvl 3 Diagnoses Acute alteration in mental status R41.82 Acute hepatic failure K72.00 Hepatic coma status: without hepatic coma Acetaminophen overdose T39.1X1A Encounter type: initial encounter Injury intent: accidental or unintentional Acute renal failure N17.9 Acute renal failure type: unspecified Hallucinations R44.3 Elevated troponin R79.89 UTI (urinary tract infection) N30.01 Hematuria presence: with hematuria Urinary tract infection type: acute cystitis History of ETOH abuse Z87.898 Alcohol withdrawal F10.239 Complication of substance-induced condition: with unspecified complication Pancreatitis K85.20 Acute pancreatitis complication: unspecified Chronicity: acute Pancreatitis type: alcohol induced Acute hyponatremia E87.1 Anxiety F41.9 GERD (gastroesophageal reflux disease) K21.9 Esophagitis presence: esophagitis presence not specified Chronic back pain M54.9; G89.29 Hepatic steatosis K76.0 HTN (hypertension) I10 Hypertension type: essential hypertension Hypothyroidism E03.9 Hypothyroidism type: unspecified Lactic acidosis E87.2 Sinus tachycardia R00.0 DVT prophylaxis Z29.9 (1) UTI (urinary tract infection) Hematuria presence: with hematuria Urinary tract infection type: acute cystitis Qualified Code(s): N30.01 - Acute cystitis with hematuria (2) Acute renal failure Acute renal failure type: unspecified Qualified Code(s): N17.9 - Acute kidney failure, unspecified (3) Alcohol withdrawal Complication of substance-induced condition: with unspecified complication Qualified Code(s): F10.239 - Alcohol dependence with withdrawal, unspecified (4) Hypothyroidism Hypothyroidism type: unspecified Qualified Code(s): E03.9 - Hypothyroidism, unspecified (5) Pancreatitis Acute pancreatitis complication: unspecified Chronicity: acute Pancreatitis type: alcohol induced Qualified Code(s): K85.20 - Alcohol induced acute pancreatitis without necrosis or infection (6) Acetaminophen overdose Encounter type: initial encounter Injury intent: accidental or unintentional Qualified Code(s): T39.1X1A - Poisoning by 4-Aminophenol derivatives, accidental (unintentional), initial encounter (7) GERD (gastroesophageal reflux disease) Esophagitis presence: esophagitis presence not specified Qualified Code(s): K21.9 - Gastro-esophageal reflux disease without esophagitis (8) HTN (hypertension) Hypertension type: essential hypertension Qualified Code(s): I10 - Essential (primary) hypertension (9) Acute hepatic failure Hepatic coma status: without hepatic coma Qualified Code(s): K72.00 - Acute and subacute hepatic failure without coma
--- NOTE | 2019-06-03 11:01 | Communication Note ---
Date of Service: June 03, 2019 GI brief note: afebrile overnight, improving. Cr improved as well as INR, on vasopressin and albumin, plan is to change advisor to octreotide. on NAC as well. MDF is 110.9 today. Recs: --continue albumin --continue vasopressin and change advisor to octreotide when able to --continue NAC --if no evidence of bacterial infection nor sepsis (urine culture processing), would recommend starting prednisolone 40 mg daily --supportive care, rest as per primary team --if any signs of decompensation, would strongly consider transfer to a tertiary care center for advanced liver care Dimitry Carroll MD Gastroenterology
[2019-06-03] MEDS: MIDODRINE HCL 10 MG TAB PO SCH (11:14)
--- NOTE | 2019-06-03 11:40 | Nephrology Progress Note ---
Date of Service June 03, 2019 Assessment & Plan (1) Acute hyponatremia: 53-year-old female with history of abuse admitted with AMS with encephalopathy hyponatremia pancreatitis liver failure. Urinalysis with proteinuria hematuria pyuria and bacteriuria. Imaging otherwise. Acute kidney injury most likely prerenal with hypotension altered mental status and acute liver failure vs less likely hepatorenal syndrome with acute liver failure. Hyponatremia the setting of NEERAJ acute liver failure and hypotension. Sodium slightly improved to 125, renal function continues to improve. Remain non-oliguric. Blood pressure has been stable. --monitor serum sodium every 12 hours --hopefully renal function will start to improve. --even though she is net positive, no sign of volume overload and no pressing need for diuretics at this time, however any pulmonary congestion, okay to use diuretics as needed --unfortunately overall prognosis remains guarded Will follow (2) ARF (acute renal failure): (3) Acute hepatic failure: (4) Hallucinations: (5) Hepatic encephalopathy: Ethan Kamara was seen and examined in ICU this morning. She continues to have some confusion although answered some questions appropriately. Denies any specific symptoms. Blood pressure has been stable without any pressor. Renal function continues to improve. Decent urine output, sodium low at 125. Review of Systems Review of Systems: Unobtainable due to mental health condition Physical Exam Constitutional: + acute distress and + ill appearing Respiratory: normal respiratory effort, lungs clear to auscultation Cardiovascular: RRR, no murmur, no edema Rate/Rhythm: + tachycardic Gastrointestinal (Abdomen): Inspection/Auscultation: + abdomen distended and + hyperactive bowel sounds Percussion/Palpation: + abdomen tender; no guarding and abdomen not rigid Neurologic: + confused Psychiatric: Orientation: alert and oriented to place Hallucinations: + visual hallucinations Results & Data Vital Signs (Past 12 Hours) Vital Signs Pulse Resp BP Pulse Ox 06/03/19 08:00 103 H 06/03/19 05:11 103 H 24 155/77 H 91 06/03/19 05:00 99 H 23 91 06/03/19 04:55 98 H 28 H 137/85 93 06/03/19 04:40 100 H 28 H 140/83 91 06/03/19 04:25 101 H 32 H 162/80 H 93 06/03/19 04:10 110 H 29 H 152/84 H 91 06/03/19 04:00 102 H 28 H 92 06/03/19 03:56 22 153/77 H 91 06/03/19 03:40 120 H 34 H 161/120 H 94 06/03/19 03:25 104 H 24 149/80 H 96 06/03/19 03:10 107 H 20 144/84 H 90 06/03/19 03:00 100 H 25 H 95 06/03/19 02:55 101 H 27 H 154/87 H 95 06/03/19 02:40 98 H 22 141/82 H 93 06/03/19 02:27 101 H 23 153/98 H 95 06/03/19 02:10 97 H 27 H 137/91 06/03/19 02:00 99 H 22 06/03/19 01:55 100 H 25 H 137/90 95 06/03/19 01:40 100 H 23 143/96 H 94 06/03/19 01:25 97 H 25 H 127/90 95 06/03/19 01:10 105 H 25 H 139/99 95 06/03/19 01:00 107 H 22 94 06/03/19 00:56 112 H 23 138/105 H 95 06/03/19 00:40 108 H 28 H 151/101 H 97 06/03/19 00:32 100 H 22 135/96 96 06/03/19 00:10 99 H 21 108/79 93 06/03/19 00:00 95 H 30 H 94 06/02/19 23:59 102 H 06/02/19 23:55 101 H 17 107/91 93 06/02/19 23:40 104 H 34 H 127/81 95 PG Care Time/CCT Total # of Minutes Spent Total Time Spent with Patient: Total time spent is greater than 50% in coordination of care (as documented) at patient's floor/unit and/or counseling patient: Coding Level of Care Code 53178 Subseq Hosp Care Lvl 3 Diagnoses Acute hyponatremia E87.1 ARF (acute renal failure) N17.8 Acute renal failure type: with other specified pathological lesion Acute hepatic failure K72.00 Hepatic coma status: without hepatic coma Hallucinations R44.3 Hepatic encephalopathy K72.90 (1) ARF (acute renal failure) Acute renal failure type: with other specified pathological lesion Qualified Code(s): N17.8 - Other acute kidney failure (2) Acute hepatic failure Hepatic coma status: without hepatic coma Qualified Code(s): K72.00 - Acute and subacute hepatic failure without coma
[2019-06-03] MEDS ORDERED: ACETYLCYSTEINE NG SCH (12:00)
--- NOTE | 2019-06-03 12:50 | XRay Report ---
XR KUB/Abdomen 1 view CLINICAL HISTORY: 53 years-old Female presenting with Check placement of NGT. TECHNIQUE: Single supine view of the upper abdomen and lower chest was obtained. COMPARISON: CT from 06/02/2019. FINDINGS: Nasogastric tube now in place terminating in the body the stomach with sidehole also within the gastr ic lumen. Gaseous distention of large bowel. No gross pneumoperitoneum. Allowing for bowel gas and stool, no calcifications to suggest nephrolithiasis. Osseous structures normal. Minimal basilar opacities. No pleural effusion or pneumothorax. IMPRESSION: 1. Appropriately positioned nasogastric tube. 2. Gaseous distention of large bowel, possibly ileus. No obstruction was evident on yesterday's CT s can. ACT 112: Negative or not required by law. Electronically signed by: Donald Ortiz M.D. 06/03/2019 12:49 PM
[2019-06-03] MEDS: ACETYLCYSTEINE 20% INHAL SOLN 30ML NG SCH ×4 (12:53→23:32)
[2019-06-03 14:21] LABS: BUN Creatinine Ratio 20.8 (10-20); Creatinine Clr Calc Pharmacy 45.7 ml/min; Est GFR (African American) 55.3; Est GFR (Non-African American) 47.7; Magnesium 2.3 mg/dl (1.8-2.4); Potassium 2.9 mmol/L (3.5-5.1)
--- NOTE | 2019-06-03 14:28 | XCELERA ---
[id number] \\[email or web address]\[id number]_[id number]___[id number]
[2019-06-03] MEDS ORDERED: POTASSIUM CHLORIDE 20 MEQ/15 ML UDC NG STA (14:29)
[2019-06-03] MEDS: POT PHOSPHATE MONOBASIC W/ SOD TAB NG SCH ×2 (17:15→20:00)
[2019-06-03] MEDS ORDERED: prednisoLONE SYRUP 15 MG/5 ML BTL NG ONE (18:15)
[2019-06-03 18:25] LABS: BUN Creatinine Ratio 23.3 (10-20); Calcium 8.4 mg/dl (8.5-10.1); Creatinine Clr Calc Pharmacy 56.3 ml/min; Est GFR (Non-African American) 61.3; Potassium 3.7 mmol/L (3.5-5.1)
[2019-06-03] MEDS ORDERED: LACTULOSE 200 GM, WATER, STERILE IRRIG 700 ML, BARCODE IDENTIFIER 1 EA PR ONE (18:30)
[2019-06-03 18:33] LABS: INR 2.6 (0.9-1.1); Partial Thromboplastin Ratio 1.7
[2019-06-03 18:50] LABS: Partial Thromboplastin Time 46.7 Seconds (21.0-31.0)
[2019-06-03] MEDS: MAGNESIUM OXIDE 400 MG TAB PO SCH (20:00)
[2019-06-04] MEDS: ACETYLCYSTEINE 20% INHAL SOLN 30ML PO SCH ×6 (03:20→23:39)
[2019-06-04 05:20] LABS: Hematocrit (blood only) 34.7 % (37-47); Hemoglobin 11.8 g/dL (12.0-16.0); Mean Corpuscular Hemoglobin 33.7 pg (25-34); Mean Corpuscular Volume 99.1 fL (80-100); RDW Coefficient of Variation 14.8 % (11.5-14.5); RDW Standard Deviation 53.2 fL (36.4-46.3); White Blood Count 2.63 K/uL (4.8-10.8)
[2019-06-04 05:31] LABS: INR 2.1 (0.9-1.1); Mean Platelet Volume 10.5 fL (7.4-10.4); Platelet Count 76 K/uL (130-400); Prothrombin Time 21.5 Seconds (9.0-12.0)
[2019-06-04 05:50] LABS: Dohle Bodies 1+; Eosinophils # (auto) 0.01 K/uL (0-0.5); Eosinophils % (auto) 0.4 %; Immature Granulocytes # (auto) 0.02 K/uL (0.00-0.02); Immature Granulocytes % (auto) 0.8 %; Lymphocytes % (auto) 7.6 %; Monocytes # (auto) 0.48 K/uL (0.11-0.59); Monocytes % (auto) 18.3 %; Neutrophils # (auto) 1.92 K/uL (1.4-6.5); Neutrophils % (auto) 72.9 %
[2019-06-04 05:52] LABS: Albumin Level 3.8 gm/dl (3.4-5.0); BUN Creatinine Ratio 23.4 (10-20); Bilirubin Direct 6.7 mg/dl (0-0.2); Calcium 8.3 mg/dl (8.5-10.1); Creatinine Clr Calc Pharmacy 59.1 ml/min; Est GFR (African American) 75.4; Est GFR (Non-African American) 65.1; Magnesium 2.5 mg/dl (1.8-2.4); Phosphorus 1.8 mg/dl (2.5-4.9); Potassium 3.2 mmol/L (3.5-5.1); Total Protein 6.7 gm/dl (6.4-8.2)
[2019-06-04] MEDS ORDERED: POTASSIUM PHOS 3 MMOL/1 ML INFUSION IV STA ×2 (06:18→20:08)
[2019-06-04] MEDS ORDERED: POTASSIUM PHOSPHATE 30 MMOL in SODIUM CHLORIDE 0.9% 500 ML IV ONE (06:30)
[2019-06-04] MEDS: LEVOTHYROXINE SODIUM 125 MCG TABLET PO SCH (06:35)
[2019-06-04] MEDS: chlordiazePOXIDE HCl 25 MG CAP PO SCH (06:36)
[2019-06-04] MEDS: POTASSIUM CHLORIDE / WTR 10 MEQ/100 ML PLCT IV SCH ×2 (06:36→07:36)
[2019-06-04] MEDS ORDERED: POTASSIUM CHLORIDE 20 MEQ TABCR PO SCH (07:15)
[2019-06-04] MEDS: POT PHOSPHATE MONOBASIC W/ SOD TAB NG SCH ×3 (08:51→16:53)
[2019-06-04] MEDS: FOLIC ACID 1 MG TAB PO SCH (08:51)
[2019-06-04] MEDS: PANTOprazole 40 MG TAB PO SCH (08:51)
[2019-06-04] MEDS: THIAMINE HCL 500 MG in 0.9 % SODIUM CHLORIDE 100 ML IV SCH (08:53)
[2019-06-04] MEDS: LACTULOSE SYRUP 30 GM/45 ML UDP PO SCH (08:53)
[2019-06-04] MEDS ORDERED: THIAMINE HCL 100 MG TAB PO SCH (09:00)
[2019-06-04 09:38] LABS: Phosphorus 1.4 mg/dl (2.5-4.9)
--- NOTE | 2019-06-04 10:24 | Nephrology Progress Note ---
Date of Service June 04, 2019 Assessment & Plan (1) Acute hyponatremia: 53-year-old female with history of abuse admitted with AMS with encephalopathy hyponatremia pancreatitis liver failure. Urinalysis with proteinuria hematuria pyuria and bacteriuria. Imaging otherwise. Acute kidney injury most likely prerenal with hypotension altered mental status and acute liver failure vs less likely hepatorenal syndrome with acute liver failure. Hyponatremia the setting of NEERAJ acute liver failure and hypotension. NEERAJ and hyponatremia resolved. --suggest Kphos IV --as renal function improved and Na normalize, will sign off. Please contact if any concern. thanks for the consult. (2) ARF (acute renal failure): (3) Acute hepatic failure: (4) Hallucinations: (5) Hepatic encephalopathy: Ethan Kamara was seen and examined in ICU this morning. She is more awake alert today but continues to have some confusion although answered some questions appropriately. Denies any specific symptoms. Blood pressure has been stable without any pressor. NEERAJ and hyponatremia resolved. Review of Systems Review of Systems: All systems reviewed & are unremarkable except as noted in HPI & below Physical Exam Constitutional: + acute distress and + ill appearing Respiratory: normal respiratory effort, lungs clear to auscultation Cardiovascular: RRR, no murmur, no edema Rate/Rhythm: + tachycardic Skin: no rashes, warm and dry Neurologic: + confused Psychiatric: Orientation: alert and oriented to place Hallucinations: + visual hallucinations Results & Data Vital Signs (Past 12 Hours) Vital Signs Temp Pulse Pulse Resp BP BP Pulse Ox 06/04/19 08:00 83 06/04/19 07:10 37.0 C 80 15 145/104 H 95 06/04/19 03:21 37.3 C 103 H 17 114/79 96 06/03/19 23:41 36.9 C 102 H 19 102/79 94 06/03/19 22:56 93 PG Care Time/CCT Total # of Minutes Spent Total Time Spent with Patient: Total time spent is greater than 50% in coordination of care (as documented) at patient's floor/unit and/or counseling patient: Coding Level of Care Code 34774 Subseq Hosp Care Lvl 2 Diagnoses Acute hyponatremia E87.1 ARF (acute renal failure) N17.8 Acute renal failure type: with other specified pathological lesion Acute hepatic failure K72.00 Hepatic coma status: without hepatic coma Hallucinations R44.3 Hepatic encephalopathy K72.90 (1) ARF (acute renal failure) Acute renal failure type: with other specified pathological lesion Qualified Code(s): N17.8 - Other acute kidney failure (2) Acute hepatic failure Hepatic coma status: without hepatic coma Qualified Code(s): K72.00 - Acute and subacute hepatic failure without coma
[2019-06-04] MEDS: prednisoLONE SYRUP 15 MG/5 ML BTL PO SCH (10:43)
[2019-06-04 11:22] LABS: Creatine Kinase 51 U/L (26-192); Lipase 1289 U/L (73-393)
[2019-06-04] MEDS ORDERED: GABAPENTIN 600 MG TAB PO SCH (12:00)
[2019-06-04] MEDS: INSULIN ASPART 100 UNITS/ML 3 ML PEN SC SCH ×3 (12:47→20:53)
--- NOTE | 2019-06-04 17:52 | Hospitalist Progress Note ---
Date of Service June 04, 2019 Assessment & Plan (1) Acute alteration in mental status: Appears improved with ammonia level <15 today and multiple bowel movements overnight, improved sodium and treatment for alcohol withdrawal likely making this improved currently but prognosis generally remains poor. Suspect multifactorial due to alcohol withdrawal/hallucinosis, acute liver failure (hepatic encephalopathy), insomnia (likely secondary to liver failure). (2) Acute hepatic failure: Severe alcohol induced hepatitis, possible acetaminophen overdose component (see below). Hepatitis viral panel negative to date. Bilirubin increased to 11 with stable Hgb, very poor prognostic sign - discussed with patient and her family. INR improved with Vitamin K suggesting some hepatic function but decrease not true prognostic factor in setting of vitamin K use. Bleeding prevention - continue stress ulcer prophylaxis with pantoprazole 40mg QAM Infection - urine culture +ve for Gardnerella (see below), no ascites on imaging and CXR clear. If febrile will need repeat blood cultures and empiric antibiotics. Hemodynamic management - BP stable, volume status euvolemic Electrolyte abnormalities - monitor PO, Mg, BMP Q12H and replace as necessary until stable MELD score 52 on arrival, 90-day mortality rate 98% Appreciate ongoing gastrointestinal recommendations, discussed with Dr Carroll (3) Acetaminophen overdose: Acetaminophen level 15mg/L [Nomogram treatment line - 17 hours]. Unknown exact time last taken but suspected to be night prior to admission (approximately 14-16 hours prior to testing). Will therefore continue full 72 hour protocol. Etiology remains much more likely alcohol induced. (4) Acute renal failure: Now resolved with BP management and IV fluids. Discussed with Dr Shields. (5) Hallucinations: Liver failure, sleep deprivation, alcoholic withdrawal hallucinosis (6) Elevated troponin: Serial troponin stable. Suspected related to demand-ischemia due to above. EKG WNL ECHO with no wall motion abnormalities. (7) UTI (urinary tract infection): Gardnerella positive, suspected non pathogenic given number of epithelial cells in original sample. Asymptomatic. Will repeat culture. (8) History of ETOH abuse: As noted in HPI. Current use. Reports last drink last Sunday although story has changed for multiple providers and her [place] [facility] partner EtOH on admission is neg. Continue Librium tapering dose. (9) Alcohol withdrawal: Librium taper as above (10) Pancreatitis: Start back on slow LR. Elevated lipase with imaging changes suggestive of mild pancreatitis with main etiology as hepatitis as above. (11) Acute hyponatremia: Hx of mild hypoNa noted Recently poor PO intake with ongoing alcohol use Rapid correction suggests due to hypovolemia. (12) Anxiety: Monitor (13) GERD (gastroesophageal reflux disease): continue home meds (14) Chronic back pain: Holding off gabapentin in setting of NEERAJ as above (15) Hepatic steatosis: noted on imaging (16) HTN (hypertension): Holding all anti-hypertensives. BP stable off midodrine. (17) Hypothyroidism: Continue levothyroxine PO (18) Lactic acidosis: Secondary to alcohol. Continue to monitor, improving. (19) Sinus tachycardia: Suspected multiple etiologies; alcohol withdrawal, dehydration, NEERAJ, acute hepatitis. (20) DVT prophylaxis: SCDs. Discussed with Dr Carroll and advised to continue to hold of chemical VTE prophylaxis at this time given significant risk of bleeding and encourage ambulation. Admission and Anticipated Discharge Date Admission Date: June 02, 2019 Subjective Patient mentation improved today. Orientated x3. Able to hold a full conversation. Multiple bowel movements overnight. No abdominal pain, nausea or vomiting. Is very weak. Able to understand the seriousness of her hepatitis and poor overall prognosis. Discussed with Dr Carroll, Dr Shields, Dr Hahn (slate handler @ [facility] [place] Updated her daughter, senior assistant manager partner and daughter in law by request of patient. Review of Systems Review of Systems: All systems reviewed & are unremarkable except as noted in HPI & below Physical Exam Constitutional: + disheveled and cooperative; no acute distress Eyes: + scleral abnormality (icteric), PERRL, EOM intact bilaterally and + nystagmus (b/l horizontal) ENMT: Mouth: + dry oral mucous membranes Neck: normal visual inspection and trachea midline Respiratory: normal respiratory effort, lungs clear to auscultation no respiratory distress Auscultation: lungs clear to auscultation bilaterally Cardiovascular: Rate/Rhythm: regular rate and regular rhythm Heart Sounds: no murmur Vessels: no JVD Extremities: normal capillary refill; no calf tenderness and no pedal edema Gastrointestinal (Abdomen): Inspection/Auscultation: + abdomen distended and normal bowel sounds Percussion/Palpation: abdomen soft; abdomen nontender, no guarding and abdomen not rigid Skin: Jaundiced Neurologic: moves all extremities, + focal motor deficit (limited exam due to cognitive state but following commands), awake and + confused Motor/Sensory: + tremor and + asterixis Psychiatric: Orientation: alert and oriented x 3 Results & Data Results & Data ([facility]) Vital Signs (Past 12 Hours) Vital Signs Temp Pulse Pulse Resp BP Pulse Ox 06/04/19 15:27 37.2 C 90 14 147/95 H 96 06/04/19 12:01 36.7 C 92 H 15 145/88 H 96 06/04/19 08:00 83 06/04/19 07:10 37.0 C 80 15 145/104 H 95 PG Care Time/CCT Total # of Minutes Spent Total Time Spent with Patient: Total time spent is greater than 50% in coordination of care (as documented) at patient's floor/unit and/or counseling patient: Coding Level of Care Code 82473 Subseq Hosp Care Lvl 3 Diagnoses Acute alteration in mental status R41.82 Acute hepatic failure K72.00 Hepatic coma status: without hepatic coma Acetaminophen overdose T39.1X1A Encounter type: initial encounter Injury intent: accidental or unintentional Acute renal failure N17.9 Acute renal failure type: unspecified Hallucinations R44.3 Elevated troponin R79.89 UTI (urinary tract infection) N30.01 Hematuria presence: with hematuria Urinary tract infection type: acute cystitis History of ETOH abuse Z87.898 Alcohol withdrawal F10.239 Complication of substance-induced condition: with unspecified complication Pancreatitis K85.20 Acute pancreatitis complication: unspecified Chronicity: acute Pancreatitis type: alcohol induced Acute hyponatremia E87.1 Anxiety F41.9 GERD (gastroesophageal reflux disease) K21.9 Esophagitis presence: esophagitis presence not specified Chronic back pain M54.9; G89.29 Hepatic steatosis K76.0 HTN (hypertension) I10 Hypertension type: essential hypertension Hypothyroidism E03.9 Hypothyroidism type: unspecified Lactic acidosis E87.2 Sinus tachycardia R00.0 DVT prophylaxis Z29.9 (1) UTI (urinary tract infection) Hematuria presence: with hematuria Urinary tract infection type: acute cystitis Qualified Code(s): N30.01 - Acute cystitis with hematuria (2) Acute renal failure Acute renal failure type: unspecified Qualified Code(s): N17.9 - Acute kidney failure, unspecified (3) Alcohol withdrawal Complication of substance-induced condition: with unspecified complication Qualified Code(s): F10.239 - Alcohol dependence with withdrawal, unspecified (4) Hypothyroidism Hypothyroidism type: unspecified Qualified Code(s): E03.9 - Hypothyroidism, unspecified (5) Pancreatitis Acute pancreatitis complication: unspecified Chronicity: acute Pancreatitis type: alcohol induced Qualified Code(s): K85.20 - Alcohol induced acute pancreatitis without necrosis or infection (6) Acetaminophen overdose Encounter type: initial encounter Injury intent: accidental or unintentional Qualified Code(s): T39.1X1A - Poisoning by 4-Aminophenol derivatives, accidental (unintentional), initial encounter (7) GERD (gastroesophageal reflux disease) Esophagitis presence: esophagitis presence not specified Qualified Code(s): K21.9 - Gastro-esophageal reflux disease without esophagitis (8) HTN (hypertension) Hypertension type: essential hypertension Qualified Code(s): I10 - Essential (primary) hypertension (9) Acute hepatic failure Hepatic coma status: without hepatic coma Qualified Code(s): K72.00 - Acute and subacute hepatic failure without coma
[2019-06-04 19:45] LABS: BUN Creatinine Ratio 19.6 (10-20); Calcium 8.2 mg/dl (8.5-10.1); Creatinine Clr Calc Pharmacy 68.9 ml/min; Est GFR (African American) 90.7; Est GFR (Non-African American) 78.2; Magnesium 2.4 mg/dl (1.8-2.4); Phosphorus 1.7 mg/dl (2.5-4.9)
[2019-06-04] MEDS ORDERED: POTASSIUM CHLORIDE 20 MEQ TABCR PO STA (19:52)
[2019-06-04] MEDS ORDERED: POTASSIUM PHOSPHATE 21 MMOL in SODIUM CHLORIDE 0.9% 500 ML IV ONE (20:30)
[2019-06-04] MEDS: LACTATED RINGER'S 1,000 ML IV SCH (20:51)
[2019-06-04] MEDS: MAGNESIUM OXIDE 400 MG TAB PO SCH (20:52)
[2019-06-04] MEDS: POT PHOSPHATE MONOBASIC W/ SOD TAB PO SCH (20:53)
[2019-06-04] MEDS: GABAPENTIN 300 MG CAP PO SCH (21:10)
[2019-06-04 22:14] LABS: Appearance Urine Cloudy (Clear); Bacteria Urine Automated Negative (Negative); Blood Urine 1+ (Negative); Cast Urine Automated 0 /lpf (0-5); Color Urine Dark Yellow; Glucose Urine UA 2+ (Negative); Ketones Urine Negative (Negative); Leukocyte Esterase Urine 1+ (Negative); Nitrite Urine Positive (Negative); Protein Urine 3+ (Negative); RBC Urine Automated 0-4 /hpf (0-4); Specific Gravity Urine 1.021 (1.000-1.030); Urobilinogen Urine Negative (Negative); pH Urine 5.5 (4.5-7.5)
[2019-06-04 22:17] LABS: Bilirubin Urine 2+ (Negative)
[2019-06-04 22:18] LABS: Ictotest Urine Positive (Negative)
[2019-06-05] MEDS: ACETYLCYSTEINE 20% INHAL SOLN 30ML PO SCH ×2 (03:03→10:44)
[2019-06-05] MEDS: LEVOTHYROXINE SODIUM 125 MCG TABLET PO SCH (05:01)
[2019-06-05 05:27] LABS: Hematocrit (blood only) 31.5 % (37-47); Hemoglobin 10.8 g/dL (12.0-16.0); Mean Corpuscular Hemoglobin 34.1 pg (25-34); Mean Corpuscular Hgb Conc 34.3 g/dL (32-36); Mean Corpuscular Volume 99.4 fL (80-100); RDW Coefficient of Variation 14.8 % (11.5-14.5); RDW Standard Deviation 54.1 fL (36.4-46.3); Red Blood Count 3.17 M/uL (4.2-5.4); White Blood Count 6.47 K/uL (4.8-10.8)
[2019-06-05 05:31] LABS: Mean Platelet Volume 10.2 fL (7.4-10.4); Platelet Count 98 K/uL (130-400)
[2019-06-05 05:40] LABS: INR 1.9 (0.9-1.1); Prothrombin Time 19.2 Seconds (9.0-12.0)
[2019-06-05 06:06] LABS: Basophils # (auto) 0.01 K/uL (0-0.2); Basophils % (auto) 0.2 %; Eosinophils # (auto) 0.01 K/uL (0-0.5); Eosinophils % (auto) 0.2 %; Giant Platelets 1+; Immature Granulocytes # (auto) 0.04 K/uL (0.00-0.02); Immature Granulocytes % (auto) 0.6 %; Lymphocytes # (auto) 0.38 K/uL (1.2-3.4); Lymphocytes % (auto) 5.9 %; Monocytes # (auto) 1.64 K/uL (0.11-0.59); Monocytes % (auto) 25.3 %; Neutrophils # (auto) 4.39 K/uL (1.4-6.5); Neutrophils % (auto) 67.8 %
[2019-06-05 06:21] LABS: Albumin Level 3.1 gm/dl (3.4-5.0); BUN Creatinine Ratio 20.4 (10-20); Bilirubin Direct 6.3 mg/dl (0-0.2); Bilirubin,Total 9.8 mg/dl (0.2-1); Calcium 7.6 mg/dl (8.5-10.1); Creatinine Clr Calc Pharmacy 94.4 ml/min; Est GFR (African American) 119.3; Est GFR (Non-African American) 102.9; Magnesium 2.3 mg/dl (1.8-2.4); Phosphorus 2.6 mg/dl (2.5-4.9); Potassium 3.1 mmol/L (3.5-5.1); Total Protein 5.8 gm/dl (6.4-8.2)
[2019-06-05] MEDS ORDERED: POTASSIUM CHLORIDE 20 MEQ TABCR PO STA (07:15)
[2019-06-05] MEDS: THIAMINE HCL 100 MG TAB PO SCH (08:55)
[2019-06-05] MEDS: POT PHOSPHATE MONOBASIC W/ SOD TAB PO SCH ×4 (08:56→20:37)
[2019-06-05] MEDS: PANTOprazole 40 MG TAB PO SCH ×2 (08:56→20:38)
[2019-06-05] MEDS: FOLIC ACID 1 MG TAB PO SCH (08:56)
[2019-06-05] MEDS: LACTULOSE SYRUP 30 GM/45 ML UDP PO SCH (08:57)
[2019-06-05] MEDS: GABAPENTIN 300 MG CAP PO SCH ×3 (08:57→20:36)
[2019-06-05] MEDS: prednisoLONE SYRUP 15 MG/5 ML BTL PO SCH (08:57)
[2019-06-05] MEDS: INSULIN ASPART 100 UNITS/ML 3 ML PEN SC SCH ×4 (08:58→20:38)
[2019-06-05] MEDS: LACTATED RINGER'S 1,000 ML IV SCH (09:19)
[2019-06-05] MEDS: THIAMINE HCL 250 MG in SODIUM CHLORIDE 0.9% 50 ML IV SCH (09:21)
--- NOTE | 2019-06-05 12:01 | Hospitalist Progress Note ---
Date of Service June 05, 2019 Assessment & Plan (1) Acute alteration in mental status: Continues to improve. Suspected multifactorial due to alcohol withdrawal/hallucinosis, hepatic encephalopathy, insomnia (likely secondary to liver failure). (2) Acute hepatic failure: Severe alcohol induced hepatitis, possible acetaminophen component. Hepatitis viral panel negative to date. Bilirubin, INR and Plt now improving. Bleeding prevention - continue stress ulcer prophylaxis with pantoprazole 40mg; switch to BID dosing as per GI recommendation. Infection - urine culture +ve for Gardnerella (see below), no ascites on imaging and CXR clear. Recorded fever 38.0 degrees today although on repeat measurement normal and patient not febrile with this. Hemodynamic management - BP stable, volume status euvolemic Electrolyte abnormalities - monitor PO, Mg, BMP Q12H and replace as necessary until stable MELD score 52 on arrival, 90-day mortality rate 98% Continue prednisolone 40mg PO daily. Appreciate ongoing gastrointestinal recommendations, discussed with Dr Carroll (3) Acetaminophen overdose: Acetaminophen level 15mg/L [Nomogram treatment line - 17 hours]. Unknown exact time last taken but suspected to be night prior to admission (approximately 14-16 hours prior to testing). Finish complete 72 hour protocol. Etiology remains much more likely alcohol induced. (4) Acute renal failure: Now resolved with BP management and IV fluids. (5) Hallucinations: Liver failure, sleep deprivation, alcoholic withdrawal hallucinosis (6) Elevated troponin: Serial troponin stable. Suspected related to demand-ischemia due to above. EKG WNL ECHO with no wall motion abnormalities. (7) UTI (urinary tract infection): Gardnerella positive, suspected non pathogenic given number of epithelial cells in original sample. Asymptomatic. Repeat culture no growth to date. (8) History of ETOH abuse: As noted in HPI. Current use. 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 Continue Librium tapering dose. (9) Alcohol withdrawal: Librium taper as above (10) Pancreatitis: Continue LR 80ml/hr. Elevated lipase with imaging changes suggestive of mild pancreatitis with main etiology as hepatitis as above. (11) Acute hyponatremia: Now resolved. Secondary to hypovolemia on admission. Recently poor PO intake with ongoing alcohol use (12) Anxiety: Monitor (13) GERD (gastroesophageal reflux disease): Pantoprazole as above. (14) Chronic back pain: Restarted on gabapentin given improved renal function. (15) Hepatic steatosis: noted on imaging (16) HTN (hypertension): Holding all anti-hypertensives. BP stable off midodrine. (17) Hypothyroidism: Continue levothyroxine PO (18) Lactic acidosis: Secondary to alcohol. Continue to monitor, improving. (19) Sinus tachycardia: Suspected multiple etiologies; alcohol withdrawal, dehydration, NEERAJ, acute hepatitis. (20) DVT prophylaxis: SCDs. Continue to hold off VTE prophylaxis Admission and Anticipated Discharge Date Admission Date: June 02, 2019 Subjective Continues to improve with mental status. Tolerating full liquid diet without issue and wishes to advance to regular food at this time. No nausea or vomiting. No fevers or chills. Mild left sided abdominal pain, no bruising, melena. Discussed care with Dr Carroll. Review of Systems Review of Systems: All systems reviewed & are unremarkable except as noted in HPI & below Physical Exam Constitutional: + not well nourished and no acute distress Eyes: + scleral abnormality (icteric), PERRL and EOM intact bilaterally; no nystagmus Neck: normal visual inspection and trachea midline Respiratory: normal respiratory effort, lungs clear to auscultation no respiratory distress Auscultation: lungs clear to auscultation bilaterally Cardiovascular: Rate/Rhythm: regular rate and regular rhythm Heart Sounds: no murmur Vessels: no JVD Extremities: normal capillary refill; no calf tenderness and no pedal edema Gastrointestinal (Abdomen): Inspection/Auscultation: + abdomen distended and normal bowel sounds Percussion/Palpation: + abdomen tender (mild tenderness on left flank) and abdomen soft; no guarding and abdomen not rigid Skin: no rashes, warm and dry Jaundiced appearing Neurologic: moves all extremities, awake and + confused; no focal motor deficits Motor/Sensory: no tremor and no asterixis Psychiatric: Orientation: alert and oriented x 3 Results & Data Results & Data ([facility]) Vital Signs (Past 12 Hours) Vital Signs Temp Pulse Pulse Pulse Resp BP BP 06/05/19 11:50 37.1 C 06/05/19 11:32 38.0 C H 96 H 19 129/74 06/05/19 09:33 76 06/05/19 07:17 36.7 C 84 18 131/86 06/05/19 03:31 36.8 C 65 17 132/82 Pulse Ox 06/05/19 11:50 06/05/19 11:32 96 06/05/19 09:33 06/05/19 07:17 97 06/05/19 03:31 97 PG Care Time/CCT Total # of Minutes Spent Total Time Spent with Patient: Total time spent is greater than 50% in coordination of care (as documented) at patient's floor/unit and/or counseling patient: Coding Level of Care Code 96473 Subseq Hosp Care Lvl 2 Diagnoses Acute alteration in mental status R41.82 Acute hepatic failure K72.00 Hepatic coma status: without hepatic coma Acetaminophen overdose T39.1X1A Encounter type: initial encounter Injury intent: accidental or unintentional Acute renal failure N17.9 Acute renal failure type: unspecified Hallucinations R44.3 Elevated troponin R79.89 UTI (urinary tract infection) N30.01 Hematuria presence: with hematuria Urinary tract infection type: acute cystitis History of ETOH abuse Z87.898 Alcohol withdrawal F10.239 Complication of substance-induced condition: with unspecified complication Pancreatitis K85.20 Acute pancreatitis complication: unspecified Chronicity: acute Pancreatitis type: alcohol induced Acute hyponatremia E87.1 Anxiety F41.9 GERD (gastroesophageal reflux disease) K21.9 Esophagitis presence: esophagitis presence not specified Chronic back pain M54.9; G89.29 Hepatic steatosis K76.0 HTN (hypertension) I10 Hypertension type: essential hypertension Hypothyroidism E03.9 Hypothyroidism type: unspecified Lactic acidosis E87.2 Sinus tachycardia R00.0 DVT prophylaxis Z29.9 (1) UTI (urinary tract infection) Hematuria presence: with hematuria Urinary tract infection type: acute cystitis Qualified Code(s): N30.01 - Acute cystitis with hematuria (2) Acute renal failure Acute renal failure type: unspecified Qualified Code(s): N17.9 - Acute kidney failure, unspecified (3) Alcohol withdrawal Complication of substance-induced condition: with unspecified complication Qualified Code(s): F10.239 - Alcohol dependence with withdrawal, unspecified (4) Hypothyroidism Hypothyroidism type: unspecified Qualified Code(s): E03.9 - Hypothyroidism, unspecified (5) Pancreatitis Acute pancreatitis complication: unspecified Chronicity: acute Pancreatitis type: alcohol induced Qualified Code(s): K85.20 - Alcohol induced acute panc reatitis without necrosis or infection (6) Acetaminophen overdose Encounter type: initial encounter Injury intent: accidental or unintentional Qualified Code(s): T39.1X1A - Poisoning by 4-Aminophenol derivatives, accidental (unintentional), initial encounter (7) GERD (gastroesophageal reflux disease) Esophagitis presence: esophagitis presence not specified Qualified Code(s): K21.9 - Gastro-esophageal reflux disease without esophagitis (8) HTN (hypertension) Hypertension type: essential hypertension Qualified Code(s): I10 - Essential (primary) hypertension (9) Acute hepatic failure Hepatic coma status: without hepatic coma Qualified Code(s): K72.00 - Acute and subacute hepatic failure without coma
[2019-06-05 17:49] LABS: Potassium 3.9 mmol/L (3.5-5.1)
[2019-06-05 17:50] LABS: BUN Creatinine Ratio 12.6 (10-20); Calcium 8.3 mg/dl (8.5-10.1); Creatinine Clr Calc Pharmacy 84.8 ml/min; Est GFR (African American) 115.2; Est GFR (Non-African American) 99.4
[2019-06-05] MEDS: chlordiazePOXIDE HCl 5 MG CAP PO SCH (20:36)
[2019-06-05] MEDS: MAGNESIUM OXIDE 400 MG TAB PO SCH (20:36)
[2019-06-06] MEDS ORDERED: GABAPENTIN 600 MG TAB PO SCH
[2019-06-06 05:59] LABS: Hematocrit (blood only) 33.1 % (37-47); Hemoglobin 11.1 g/dL (12.0-16.0); Mean Corpuscular Hemoglobin 33.5 pg (25-34); Mean Corpuscular Hgb Conc 33.5 g/dL (32-36); Mean Platelet Volume 10.8 fL (7.4-10.4); Platelet Count 100 K/uL (130-400); RDW Coefficient of Variation 15.3 % (11.5-14.5); RDW Standard Deviation 56.2 fL (36.4-46.3); Red Blood Count 3.31 M/uL (4.2-5.4); White Blood Count 6.64 K/uL (4.8-10.8)
[2019-06-06 06:11] LABS: INR 1.7 (0.9-1.1); Prothrombin Time 17.7 Seconds (9.0-12.0)
[2019-06-06] MEDS: LEVOTHYROXINE SODIUM 125 MCG TABLET PO SCH (06:32)
[2019-06-06 06:36] LABS: Albumin Globulin Ratio 0.9 (0.9-2); Albumin Level 2.8 gm/dl (3.4-5.0); BUN Creatinine Ratio 12.9 (10-20); Bilirubin,Total 7.8 mg/dl (0.2-1); Creatinine Clr Calc Pharmacy 102.7 ml/min; Est GFR (African American) 122.7; Est GFR (Non-African American) 105.8; Magnesium 2.1 mg/dl (1.8-2.4); Phosphorus 2.4 mg/dl (2.5-4.9); Total Protein 5.8 gm/dl (6.4-8.2)
[2019-06-06 06:52] LABS: Potassium 3.2 mmol/L (3.5-5.1)
[2019-06-06] MEDS: INSULIN ASPART 100 UNITS/ML 3 ML PEN SC SCH ×4 (08:06→21:02)
[2019-06-06] MEDS: PANTOprazole 40 MG TAB PO SCH ×2 (08:07→21:01)
[2019-06-06] MEDS: GABAPENTIN 300 MG CAP PO SCH ×3 (08:07→21:01)
[2019-06-06] MEDS: VITAMIN B COMPLEX TAB PO SCH (08:07)
[2019-06-06] MEDS: FOLIC ACID 1 MG TAB PO SCH (08:08)
[2019-06-06] MEDS: prednisoLONE SYRUP 15 MG/5 ML BTL PO SCH (08:08)
[2019-06-06] MEDS: POT PHOSPHATE MONOBASIC W/ SOD TAB PO SCH ×4 (08:08→21:00)
[2019-06-06] MEDS: LACTULOSE SYRUP 30 GM/45 ML UDP PO SCH (08:08)
[2019-06-06] MEDS: POTASSIUM CHLORIDE 20 MEQ TABCR PO SCH (08:08)
[2019-06-06] MEDS: chlordiazePOXIDE HCl 5 MG CAP PO SCH (08:08)
[2019-06-06] MEDS: THIAMINE HCL 100 MG TAB PO SCH (08:08)
[2019-06-06] MEDS: THIAMINE HCL 250 MG in SODIUM CHLORIDE 0.9% 50 ML IV SCH (08:41)
--- NOTE | 2019-06-06 11:23 | Hospitalist Progress Note ---
Date of Service June 06, 2019 Assessment & Plan (1) Acute alteration in mental status: Now resolved. Suspected multifactorial due to alcohol withdrawal/hallucinosis, hepatic encephalopathy, insomnia (likely secondary to liver failure). (2) Acute hepatic failure: Severe alcohol induced hepatitis, possible acetaminophen component. Hepatitis viral panel negative to date. Bilirubin, INR and Plt continues to improve. Bleeding prevention - continue stress ulcer prophylaxis with pantoprazole 40mg; switch to BID dosing as per GI recommendation. Infection - urine culture +ve for Gardnerella/mixed (see below), no ascites on imaging and CXR clear. Afebrile (fever yesterday repeated and likely not correct). Hemodynamic management - BP stable, volume status euvolemic Electrolyte abnormalities - monitor PO, Mg, BMP Q12H and replace as necessary until stable MELD score 52 on arrival, 90-day mortality rate 98% - suspect this is over estimate given no ascites present which has been shown to be a good predictive factor for survival and rapid resolution of renal failure [place] hepatitis score >= 9 relates to much poorer 28 and 84 day survival. Discriminant function 254.3 (> 32 indicates poor prognosis). Continue prednisolone 40mg PO daily, 28 day course with labs 1 week after discharge to Dr Carroll Appreciate ongoing gastrointestinal recommendations, discussed with Dr Carroll regarding prednisolone duration (3) Acetaminophen overdose: Acetaminophen level 15mg/L [Nomogram treatment line - 17 hours]. Unknown exact time last taken but suspected to be night prior to admission (approximately 14-16 hours prior to testing). Finish complete 72 hour protocol. Etiology remains much more likely alcohol induced. (4) Acute renal failure: Now resolved with BP management and IV fluids. (5) Hallucinations: Now resolved. Liver failure, sleep deprivation, alcoholic withdrawal hallucinosis (6) Elevated troponin: Serial troponin stable. Suspected related to demand-ischemia due to above. EKG WNL ECHO with no wall motion abnormalities. (7) UTI (urinary tract infection): Gardnerella positive, suspected non pathogenic given number of epithelial cells in original sample. Asymptomatic. Mixed on repeat sample. No treatment required for this. (8) History of ETOH abuse: As noted in HPI. Current use. Reports last drink last Sunday although story has changed for multiple providers and her nursing home partner Planning on inpatient rehabilitation on discharge. (9) Alcohol withdrawal: Now resolved off librium taper. No current signs/symptoms of withdrawal (10) Pancreatitis: Elevated lipase with imaging changes suggestive of mild pancreatitis with main etiology as hepatitis as above. (11) Acute hyponatremia: Now resolved. Secondary to hypovolemia on admission. Recently poor PO intake with ongoing alcohol use (12) Anxiety: Monitor (13) GERD (gastroesophageal reflux disease): Pantoprazole as above. (14) Chronic back pain: Continue gabapentin (home medication). (15) Hepatic steatosis: noted on imaging (16) HTN (hypertension): Holding all anti-hypertensives. BP stable off midodrine. (17) Hypothyroidism: Continue levothyroxine PO (18) Lactic acidosis: Now resolved Secondary to alcohol. (19) Sinus tachycardia: Now resolved. Suspected multiple etiologies; alcohol withdrawal, dehydration, NEERAJ, acute hepatitis. (20) Left upper extremity swelling: Suspected secondary to infiltration previously but does not appear to be improving Will get US LUE venous doppler to rule out DVT (21) DVT prophylaxis: SCDs. Start lovenox 40mg SQ HS now more stable. Encourage mobilization. Admission and Anticipated Discharge Date Admission Date: June 02, 2019 Medically stable for discharge pending inpatient D&A rehabilitation placement Anticipated date of discharge: 06/09/19 Subjective No acute events overnight. No nausea or vomiting. No fevers or chills. Mild left sided abdominal pain, no bruising, melena. She continues to feel weak but motivated. Initially was looking at outpatient rehab but changed her mind after talking to her daughter in the afternoon. Intermittent mild left abdominal pain improving. Updated her daughter over the phone. Review of Systems Review of Systems: All systems reviewed & are unremarkable except as noted in HPI & below Physical Exam Constitutional: + not well nourished and no acute distress Eyes: + scleral abnormality (icteric), PERRL and EOM intact bilaterally; no nystagmus ENMT: external ear and nose normal, oropharynx normal Neck: normal visual inspection and trachea midline Respiratory: no respiratory distress Cardiovascular: Extremities: no pedal edema Gastrointestinal (Abdomen): Inspection/Auscultation: abdomen not distended Percussion/Palpation: abdomen soft; abdomen nontender, no guarding and abdomen not rigid Musculoskeletal: no cyanosis or clubbing, extremities motor strength 5/5 Skin: no rashes, warm and dry Neurologic: moves all extremities and awake; not confused Motor/Sensory: no tremor Psychiatric: Orientation: alert and oriented x 3 Results & Data Results & Data ([facility]) Vital Signs (Past 12 Hours) Vital Signs Temp Pulse Pulse Resp BP BP Pulse Ox 06/06/19 10:15 36.9 C 112 H 18 123/82 97 06/06/19 08:00 79 06/06/19 07:28 36.8 C 96 H 16 116/76 99 06/06/19 03:47 36.6 C 84 17 128/83 98 06/06/19 00:00 36.7 C 78 17 115/73 99 06/05/19 23:59 92 H PG Care Time/CCT Total # of Minutes Spent Total Time Spent with Patient: Total time spent is greater than 50% in coordination of care (as documented) at patient's floor/unit and/or counseling patient: Coding Level of Care Code 17176 Subseq Hosp Care Lvl 2 Diagnoses Acute alteration in mental status R41.82 Acute hepatic failure K72.00 Hepatic coma status: without hepatic coma Acetaminophen overdose T39.1X1A Encounter type: initial encounter Injury intent: accidental or unintentional Acute renal failure N17.9 Acute renal failure type: unspecified Hallucinations R44.3 Elevated troponin R79.89 UTI (urinary tract infection) N30.01 Hematuria presence: with hematuria Urinary tract infection type: acute cystitis History of ETOH abuse Z87.898 Alcohol withdrawal F10.239 Complication of substance-induced condition: with unspecified complication Pancreatitis K85.20 Acute pancreatitis complication: unspecified Chronicity: acute Pancreatitis type: alcohol induced Acute hyponatremia E87.1 Anxiety F41.9 GERD (gastroesophageal reflux disease) K21.9 Esophagitis presence: esophagitis presence not specified Chronic back pain M54.5; G89.29 Back pain location: low back pain Back pain laterality: left Sciatica presence: without sciatica Hepatic steatosis K76.0 HTN (hypertension) I10 Hypertension type: essential hypertension Hypothyroidism E03.9 Hypothyroidism type: unspecified Lactic acidosis E87.2 Sinus tachycardia R00.0 Left upper extremity swelling M79.89 DVT prophylaxis Z29.9 (1) UTI (urinary tract infection) Hematuria presence: with hematuria Urinary tract infection type: acute cystitis Qualified Code(s): N30.01 - Acute cystitis with hematuria (2) Acute renal failure Acute renal failure type: unspecified Qualified Code(s): N17.9 - Acute kidney failure, unspecified (3) Alcohol withdrawal Complication of substance-induced condition: with unspecified complication Qualified Code(s): F10.239 - Alcohol dependence with withdrawal, unspecified (4) Hypothyroidism Hypothyroidism type: unspecified Qualified Code(s): E03.9 - Hypothyroidism, unspecified (5) Pancreatitis Acute pancreatitis complication: unspecified Chronicity: acute Pancreatitis type: alcohol induced Qualified Code(s): K85.20 - Alcohol induced acute pancreatitis without necrosis or infection (6) Chronic back pain Back pain location: low back pain Back pain laterality: left Sciatica presence: without sciatica Qualified Code(s): M54.5 - Low back pain; G89.29 - Other chronic pain (7) Acetaminophen overdose Encounter type: initial encounter Injury intent: accidental or unintentional Qualified Code(s): T39.1X1A - Poisoning by 4-Aminophenol derivatives, accidental (unintentional), initial encounter (8) GERD (gastroesophageal reflux disease) Esophagitis presence: esophagitis presence not specified Qualified Code(s): K21.9 - Gastro-esophageal reflux disease without esophagitis (9) HTN (hypertension) Hypertension type: essential hypertension Qualified Code(s): I10 - Essential (primary) hypertension (10) Acute hepatic failure Hepatic coma status: without hepatic coma Qualified Code(s): K72.00 - Acute and subacute hepatic failure without coma
[2019-06-06] MEDS ORDERED: POTASSIUM CHLORIDE 20 MEQ TABCR PO ONE (18:00)
[2019-06-06] MEDS: MAGNESIUM OXIDE 400 MG TAB PO SCH (21:01)
[2019-06-06 22:10] LABS: Appearance Urine Clear (Clear); Bacteria Urine Automated Negative (Negative); Blood Urine Negative (Negative); Color Urine Dark Yellow; Glucose Urine UA 3+ (Negative); Ketones Urine Negative (Negative); Leukocyte Esterase Urine 1+ (Negative); Nitrite Urine Negative (Negative); Protein Urine Negative (Negative); Specific Gravity Urine 1.015 (1.000-1.030); Urobilinogen Urine Positive (Negative)
[2019-06-06 22:13] LABS: Bilirubin Urine 2+ (Negative); Ictotest Urine Positive (Negative)
[2019-06-07] MEDS: LEVOTHYROXINE SODIUM 125 MCG TABLET PO SCH (06:20)
[2019-06-07] MEDS: THIAMINE HCL 100 MG TAB PO SCH (07:16)
[2019-06-07 07:17] LABS: Hematocrit (blood only) 34.1 % (37-47); Hemoglobin 11.5 g/dL (12.0-16.0); Mean Corpuscular Hemoglobin 34.1 pg (25-34); Mean Corpuscular Hgb Conc 33.7 g/dL (32-36); Mean Corpuscular Volume 101.2 fL (80-100); Mean Platelet Volume 10.9 fL (7.4-10.4); Platelet Count 127 K/uL (130-400); RDW Coefficient of Variation 15.9 % (11.5-14.5); Red Blood Count 3.37 M/uL (4.2-5.4); White Blood Count 8.79 K/uL (4.8-10.8)
[2019-06-07] MEDS: GABAPENTIN 300 MG CAP PO SCH ×3 (07:17→20:51)
[2019-06-07] MEDS: VITAMIN B COMPLEX TAB PO SCH (07:17)
[2019-06-07] MEDS: FOLIC ACID 1 MG TAB PO SCH (07:18)
[2019-06-07] MEDS: PANTOprazole 40 MG TAB PO SCH ×2 (07:18→20:49)
[2019-06-07] MEDS: LACTULOSE SYRUP 30 GM/45 ML UDP PO SCH (07:18)
[2019-06-07] MEDS: POT PHOSPHATE MONOBASIC W/ SOD TAB PO SCH ×4 (07:19→20:50)
[2019-06-07] MEDS: POTASSIUM CHLORIDE 20 MEQ TABCR PO SCH (07:19)
[2019-06-07] MEDS: CEROVITE ADV FORMULA TAB PO SCH (07:20)
[2019-06-07] MEDS: prednisoLONE SYRUP 15 MG/5 ML BTL PO SCH (07:21)
[2019-06-07 07:25] LABS: INR 1.6 (0.9-1.1); Prothrombin Time 16.4 Seconds (9.0-12.0)
[2019-06-07 07:46] LABS: Albumin Globulin Ratio 0.9 (0.9-2); Albumin Level 2.8 gm/dl (3.4-5.0); Bilirubin,Total 6.5 mg/dl (0.2-1); Calcium 8.2 mg/dl (8.5-10.1); Creatinine Clr Calc Pharmacy 114.8 ml/min; Est GFR (African American) 127.2; Est GFR (Non-African American) 109.8; Potassium 3.7 mmol/L (3.5-5.1); Total Protein 5.8 gm/dl (6.4-8.2)
[2019-06-07] MEDS: THIAMINE HCL 250 MG in SODIUM CHLORIDE 0.9% 50 ML IV SCH (08:34)
[2019-06-07] MEDS: INSULIN ASPART 100 UNITS/ML 3 ML PEN SC SCH ×4 (09:50→20:56)
[2019-06-07] MEDS ORDERED: ZINC SULFATE 220 MG CAPSULE PO SCH (17:00)
[2019-06-07] MEDS ORDERED: ASCORBIC ACID 500 MG TAB PO SCH (17:00)
--- NOTE | 2019-06-07 18:18 | Ultrasound Report ---
US venous doppler UE LT CLINICAL HISTORY: 53 years-old Female presenting with bruising in the posterior portion of the left a rm, concern for DVT. TECHNIQUE: Real-time grayscale and color and spectral Doppler ultrasound imaging of the veins of the left upper extremity was performed. Compression and augmentation were also utilized. COMPARISON: None. FINDINGS: LEFT: Internal jugular vein: Patent. Subclavian vein: Patent. Axillary vein: Patent. Brachial vein: Patent. Basilic vein (superficial): Patent. Cephalic vein (superficial): Patent. Radial vein: Patent. Ulnar vein: Patent. Other: Subcutaneous edema within the posterior portion of the left arm at the site of ecchymosis. No focal collection to suggest hematoma. IMPRESSION: 1. No evidence of deep venous thrombosis. 2. Subcutaneous edema at the site of clinical concern. No focal hematoma. ACT 112: Negative or not required by law. Electronically signed by: Donald Ortiz M.D. 06/07/2019 6:17 PM
[2019-06-07] MEDS: MAGNESIUM OXIDE 400 MG TAB PO SCH (20:50)
[2019-06-07] MEDS: ENOXAPARIN INJ 40 MG/0.4 ML SYR SQ SCH (20:52)
[2019-06-08 05:45] LABS: Hematocrit (blood only) 33.7 % (37-47); Hemoglobin 11.3 g/dL (12.0-16.0); Mean Corpuscular Hemoglobin 33.8 pg (25-34); Mean Corpuscular Hgb Conc 33.5 g/dL (32-36); Mean Corpuscular Volume 100.9 fL (80-100); Mean Platelet Volume 10.9 fL (7.4-10.4); Platelet Count 131 K/uL (130-400); RDW Coefficient of Variation 16.5 % (11.5-14.5); RDW Standard Deviation 59.3 fL (36.4-46.3); Red Blood Count 3.34 M/uL (4.2-5.4); White Blood Count 8.16 K/uL (4.8-10.8)
[2019-06-08 05:46] LABS: INR 1.6 (0.9-1.1); Prothrombin Time 16.7 Seconds (9.0-12.0)
[2019-06-08] MEDS: LEVOTHYROXINE SODIUM 125 MCG TABLET PO SCH (06:13)
[2019-06-08 06:19] LABS: Albumin Globulin Ratio 0.8 (0.9-2); Albumin Level 2.4 gm/dl (3.4-5.0); BUN Creatinine Ratio 13.3 (10-20); Bilirubin,Total 5.2 mg/dl (0.2-1); Calcium 8.1 mg/dl (8.5-10.1); Creatinine Clr Calc Pharmacy 114.8 ml/min; Est GFR (African American) 127.2; Est GFR (Non-African American) 109.8; Potassium 3.8 mmol/L (3.5-5.1); Total Protein 5.4 gm/dl (6.4-8.2)
[2019-06-08] MEDS: CEROVITE ADV FORMULA TAB PO SCH (08:03)
[2019-06-08] MEDS: GABAPENTIN 300 MG CAP PO SCH ×3 (08:03→20:23)
[2019-06-08] MEDS: POT PHOSPHATE MONOBASIC W/ SOD TAB PO SCH ×4 (08:03→20:23)
[2019-06-08] MEDS: prednisoLONE SYRUP 15 MG/5 ML BTL PO SCH (08:03)
[2019-06-08] MEDS: POTASSIUM CHLORIDE 20 MEQ TABCR PO SCH (08:03)
[2019-06-08] MEDS: PANTOprazole 40 MG TAB PO SCH ×2 (08:03→20:23)
[2019-06-08] MEDS: VITAMIN B COMPLEX TAB PO SCH (08:03)
[2019-06-08] MEDS: LACTULOSE SYRUP 30 GM/45 ML UDP PO SCH (08:04)
[2019-06-08] MEDS: FOLIC ACID 1 MG TAB PO SCH (08:04)
[2019-06-08] MEDS: THIAMINE HCL 100 MG TAB PO SCH (08:04)
[2019-06-08] MEDS: INSULIN ASPART 100 UNITS/ML 3 ML PEN SC SCH (08:30)
[2019-06-08] MEDS ORDERED: PHYTONADIONE 5 MG TAB PO STA (10:18)
--- NOTE | 2019-06-08 15:49 | Hospitalist Progress Note ---
Date of Service June 07, 2019 Assessment & Plan (1) Acute alteration in mental status: Now resolved. Suspected multifactorial due to alcohol withdrawal/hallucinosis, hepatic encephalopathy, insomnia (likely secondary to liver failure). (2) Acute hepatic failure: Severe alcohol induced hepatitis, possible acetaminophen component. Hepatitis viral panel negative to date. Bilirubin, INR and Plt continues to improve. Bleeding prevention - continue stress ulcer prophylaxis with pantoprazole 40mg; switch to BID dosing as per GI recommendation. Infection - urine culture +ve for Gardnerella/mixed (see below), no ascites on imaging and CXR clear. Afebrile (fever 4/2 repeated and normal; likely error in technique or documentation). Hemodynamic management - BP stable, volume status euvolemic Electrolyte abnormalities - monitor PO, Mg, BMP daily and replace as necessary until stable On admission scores: MELD score 52 on arrival, 90-day mortality rate 98% - suspect this is over estimate given no ascites present which has been shown to be a good predictive factor for survival and rapid resolution of renal failure [place] hepatitis score >= 9 relates to much poorer 28 and 84 day survival. Discriminant function 254.3 (> 32 indicates poor prognosis). Rx Continue prednisolone 40mg PO daily, 28 day course with labs 1 week after discharge to Dr Carroll Nutritional supplements added as per v belt skiver recommendations. Discussed with pharmacy and cannot find water-miscible ADEK available however. (3) Acetaminophen overdose: Acetaminophen level 15mg/L [Nomogram treatment line - 17 hours]. Unknown exact time last taken but suspected to be night prior to admission (approximately 14-16 hours prior to testing). Completed NAC 72 hour protocol. Etiology remains much more likely alcohol induced. (4) Acute renal failure: Now resolved with BP management and IV fluids. (5) Hallucinations: Now resolved. Secondary to hepatitis, sleep deprivation, alcoholic withdrawal hallucinosis. (6) Elevated troponin: Serial troponin stable. Suspected related to demand-ischemia due to above. EKG WNL ECHO with no wall motion abnormalities. (7) UTI (urinary tract infection): Gardnerella positive, suspected non pathogenic given number of epithelial cells in original sample. Asymptomatic. Mixed on repeat sample. No symptoms, therefore no treatment required for this. (8) History of ETOH abuse: As noted in HPI. Current use, hides it from her partner so unknown how much she truly drinks. Planning on inpatient rehabilitation on discharge. (9) Alcohol withdrawal: Now resolved off Librium taper. No current signs/symptoms of withdrawal. (10) Pancreatitis: Elevated lipase with imaging changes suggestive of mild pancreatitis with main etiology as hepatitis as above. (11) Acute hyponatremia: Now resolved. Secondary to hypovolemia on admission. Recently poor PO intake with ongoing alcohol use (12) Anxiety: Monitor. On no medications for this. (13) GERD (gastroesophageal reflux disease): Pantoprazole as above. (14) Chronic back pain: Continue gabapentin (home medication). (15) Hepatic steatosis: noted on imaging. Will need to follow up with GI on discharge to assess for alcoholic cirrhosis. (16) Hypothyroidism: Continue levothyroxine PO (17) Lactic acidosis: Now resolved Secondary to alcohol. (18) Sinus tachycardia: Now resolved. Suspected multiple etiologies; alcohol withdrawal, dehydration, NEERAJ, acute hepatitis. (19) Left upper extremity swelling: Suspected secondary to infiltration previously but does not appear to be improving US negative for DVT (20) DVT prophylaxis: SCDs. Lovenox 40mg SQ HS Admission and Anticipated Discharge Date Admission Date: June 02, 2019 Anticipated date of discharge: 06/09/19 Subjective No acute events overnight. No nausea or vomiting. No fevers or chills. Mild left sided abdominal pain, continues intermittently. Updated her daughter over the phone. Review of Systems Review of Systems: All systems reviewed & are unremarkable except as noted in HPI & below Physical Exam Constitutional: + not well nourished and no acute distress Eyes: + scleral abnormality (icteric) Respiratory: no respiratory distress Gastrointestinal (Abdomen): Inspection/Auscultation: abdomen not distended Percussion/Palpation: + abdomen tender (mild left sided) and abdomen soft; no guarding and abdomen not rigid Musculoskeletal: Swollen left upper extremity wtih bruising from prior infiltration. Skin: Bruising on left arm, jaundiced appearing skin Neurologic: moves all extremities and awake; not confused Psychiatric: Orientation: alert and oriented x 3 Results & Data Results & Data ([facility]) Vital Signs (Past 12 Hours) Vital Signs Temp Pulse Resp BP Pulse Ox 06/08/19 15:36 36.6 C 94 H 18 119/80 98 06/08/19 08:00 36.4 C L 88 18 112/72 99 PG Care Time/CCT Total # of Minutes Spent Total Time Spent with Patient: Total time spent is greater than 50% in coordination of care (as documented) at patient's floor/unit and/or counseling patient: Coding Level of Care Code 85139 Subseq Hosp Care Lvl 1 Diagnoses Acute alteration in mental status R41.82 Acute hepatic failure K72.00 Hepatic coma status: without hepatic coma Acetaminophen overdose T39.1X1A Encounter type: initial encounter Injury intent: accidental or unintentional Acute renal failure N17.9 Acute renal failure type: unspecified Hallucinations R44.3 Elevated troponin R79.89 UTI (urinary tract infection) N30.01 Urinary tract infection type: acute cystitis Hematuria presence: with hematuria History of ETOH abuse Z87.898 Alcohol withdrawal F10.239 Complication of substance-induced condition: with unspecified complication Pancreatitis K85.20 Chronicity: acute Pancreatitis type: alcohol induced Acute pancreatitis complication: unspecified Acute hyponatremia E87.1 Anxiety F41.9 GERD (gastroesophageal reflux disease) K21.9 Esophagitis presence: esophagitis presence not specified Chronic back pain M54.5; G89.29 Back pain location: low back pain Back pain laterality: left Sciatica presence: without sciatica Hepatic steatosis K76.0 Hypothyroidism E03.9 Hypothyroidism type: unspecified Lactic acidosis E87.2 Sinus tachycardia R00.0 Left upper extremity swelling M79.89 DVT prophylaxis Z29.9 (1) Acute hepatic failure Hepatic coma status: without hepatic coma Qualified Code(s): K72.00 - Acute and subacute hepatic failure without coma (2) Acetaminophen overdose Encounter type: initial encounter Injury intent: accidental or unintentional Qualified Code(s): T39.1X1A - Poisoning by 4-Aminophenol derivatives, accidental (unintentional), initial encounter (3) Acute renal failure Acute renal failure type: unspecified Qualified Code(s): N17.9 - Acute kidney failure, unspecified (4) UTI (urinary tract infection) Urinary tract infection type: acute cystitis Hematuria presence: with hematuria Qualified Code(s): N30.01 - Acute cystitis with hematuria (5) Alcohol withdrawal Complication of substance-induced condition: with unspecified complication Qualified Code(s): F10.239 - Alcohol dependence with withdrawal, unspecified (6) Pancreatitis Chronicity: acute Pancreatitis type: alcohol induced Acute pancreatitis complication: unspecified Qualified Code(s): K85.20 - Alcohol induced acute pancreatitis without necrosis or infection (7) GERD (gastroesophageal reflux disease) Esophagitis presence: esophagitis presence not specified Qualified Code(s): K21.9 - Gastro-esophageal reflux disease without esophagitis (8) Chronic back pain Back pain location: low back pain Back pain laterality: left Sciatica presence: without sciatica Qualified Code(s): M54.5 - Low back pain; G89.29 - Other chronic pain (9) Hypothyroidism Hypothyroidism type: unspecified Qualified Code(s): E03.9 - Hypothyroidism, unspecified
--- NOTE | 2019-06-08 16:06 | Hospitalist Progress Note ---
Date of Service June 08, 2019 Assessment & Plan (1) Acute alteration in mental status: Now resolved. Suspected multifactorial due to alcohol withdrawal/hallucinosis, hepatic encephalopathy, insomnia (likely secondary to liver failure). (2) Acute alcoholic hepatitis: Severe alcohol induced hepatitis without ascites, possible acetaminophen component. Hepatitis viral panel negative to date. Bilirubin, INR and Plt continues to improve. No need to repeat daily at this time. Will give Vit K 2.5mg PO to determine if residual INR elevation residual to liver or vitamin deficiency. Bleeding prevention - continue stress ulcer prophylaxis with pantoprazole 40mg BID as per GI recommendations. Infection - urine culture +ve for Gardnerella/mixed (see below), no ascites on imaging and CXR clear. Afebrile (fever 4/2 repeated and normal; likely error in technique or documentation). No ascites Hemodynamic management - BP stable, volume status euvolemic Electrolyte abnormalities - appear stable on KCl 40 meq PO daily, repeat phosphorus level in AM to determine if phosphorus tablet still required. Admission alcoholic hepatitis scores: MELD score 52, 90-day mortality rate 98% - suspect this is over estimate given no ascites present which has been shown to be a good predictive factor for survival and rapid resolution of renal failure [place] hepatitis score >= 9 relates to much poorer 28 and 84 day survival. Discriminant function 254.3 (> 32 indicates poor prognosis). Patient and family aware of seriousness of her condition and advised regarding complete alcohol cessation. Rx Continue prednisolone 40mg PO daily, 28 day course with labs 1 week after discharge to Dr Carroll Nutritional supplements added as per vice president of news recommendations. Discussed with pharmacy and cannot find water-miscible ADEK available however. (3) Acetaminophen overdose: Acetaminophen level 15mg/L [Nomogram treatment line - 17 hours]. Unknown exact time last taken but suspected to be night prior to admission (approximately 14-16 hours prior to testing). Completed NAC 72 hour protocol. Etiology remains much more likely alcohol induced. (4) Acute renal failure: Now resolved. Pre-renal Rx vasopressors and IV fluids on admission. (5) Hallucinations: Now resolved. Secondary to hepatitis, sleep deprivation, alcoholic withdrawal hallucinosis. (6) Elevated troponin: Serial troponin stable. Suspected related to demand-ischemia due to above. EKG WNL ECHO with no wall motion abnormalities. (7) UTI (urinary tract infection): Ruled out Gardnerella positive, suspected non pathogenic given number of epithelial cells in original sample. Asymptomatic. Mixed on repeat sample. No symptoms, therefore no treatment required for this. (8) History of ETOH abuse: As noted in HPI. Current use, hides it from her partner so unknown how much she truly drinks. Planning on inpatient rehabilitation on discharge. (9) Alcohol withdrawal: Now resolved off Librium taper. No current signs/symptoms of withdrawal. (10) Pancreatitis: Elevated lipase with imaging changes suggestive of mild pancreatitis with main etiology as hepatitis as above. At this stage can liberalize off low fat diet as no pain with eating. (11) Acute hyponatremia: Now resolved. Secondary to hypovolemia on admission. Recently poor PO intake with ongoing alcohol use. (12) Anxiety: Monitor. On no medications for this. (13) GERD (gastroesophageal reflux disease): Pantoprazole as above. (14) Chronic back pain: Continue gabapentin (home medication). (15) Hepatic steatosis: noted on imaging. Will need to follow up with GI on discharge to assess for alcoholic cirrhosis. (16) Hypothyroidism: Continue levothyroxine PO 125 mcg daily (17) Lactic acidosis: Now resolved Secondary to alcohol. (18) Sinus tachycardia: Now resolved. Suspected multiple etiologies; electrolyte abnormalities, alcohol withdrawal, dehydration, NEERAJ, acute hepatitis. (19) Left upper extremity swelling: Secondary to infiltration of IV fluids earlier in admission. US negative for DVT. Keep elevated to help with swelling. (20) DVT prophylaxis: SCDs. Lovenox 40mg SQ HS. Admission and Anticipated Discharge Date Admission Date: June 02, 2019 Medically stable for discharge awaiting inpatient D&A rehabilitation placement. Anticipated date of discharge: 06/09/19 Subjective No acute events overnight. No nausea or vomiting. No fevers or chills. Mild left sided abdominal pain, continues intermittently, not getting any worse. No abdominal distension noted by patient. BM x2 already this morning. Review of Systems Review of Systems: All systems reviewed & are unremarkable except as noted in HPI & below Physical Exam Constitutional: + not well nourished and no acute distress Eyes: + scleral abnormality (icteric) Neck: normal visual inspection and trachea midline Respiratory: no respiratory distress Musculoskeletal: Left upper extremity swelling with bruising mildly improving Skin: Jaunduced appearing Neurologic: moves all extremities and awake; not confused Psychiatric: Orientation: alert and oriented x 3 Apperance: appropriately groomed Eye Contact: good eye contact Speech: normal rate/rhythm/volume of speech Affect: euthymic affect Mood: no depressed mood Thought Process: goal directed thought process Results & Data Results & Data ([facility]) Vital Signs (Past 12 Hours) Vital Signs Temp Pulse Resp BP Pulse Ox 06/08/19 15:36 36.6 C 94 H 18 119/80 98 06/08/19 08:00 36.4 C L 88 18 112/72 99 PG Care Time/CCT Total # of Minutes Spent Total Time Spent with Patient: Total time spent is greater than 50% in coordination of care (as documented) at patient's floor/unit and/or counseling patient: Coding Level of Care Code 69804 Subseq Hosp Care Lvl 1 Diagnoses Acute alteration in mental status R41.82 Acute alcoholic hepatitis K70.10 Acetaminophen overdose T39.1X1A Encounter type: initial encounter Injury intent: accidental or unintentional Acute renal failure N17.9 Acute renal failure type: unspecified Hallucinations R44.3 Elevated troponin R79.89 UTI (urinary tract infection) N30.01 Urinary tract infection type: acute cystitis Hematuria presence: with hematuria History of ETOH abuse Z87.898 Alcohol withdrawal F10.239 Complication of substance-induced condition: with unspecified complication Pancreatitis K85.20 Chronicity: acute Pancreatitis type: alcohol induced Acute pancreatitis complication: unspecified Acute hyponatremia E87.1 Anxiety F41.9 GERD (gastroesophageal reflux disease) K21.9 Esophagitis presence: esophagitis presence not specified Chronic back pain M54.5; G89.29 Back pain location: low back pain Back pain laterality: left Sciatica presence: without sciatica Hepatic steatosis K76.0 Hypothyroidism E03.9 Hypothyroidism type: unspecified Lactic acidosis E87.2 Sinus tachycardia R00.0 Left upper extremity swelling M79.89 DVT prophylaxis Z29.9 (1) Acetaminophen overdose Encounter type: initial encounter Injury intent: accidental or unintentional Qualified Code(s): T39.1X1A - Poisoning by 4-Aminophenol derivatives, accidental (unintentional), initial encounter (2) Acute renal failure Acute renal failure type: unspecified Qualified Code(s): N17.9 - Acute kidney failure, unspecified (3) UTI (urinary tract infection) Urinary tract infection type: acute cystitis Hematuria presence: with hematuria Qualified Code(s): N30.01 - Acute cystitis with hematuria (4) Alcohol withdrawal Complication of substance-induced condition: with unspecified complication Qualified Code(s): F10.239 - Alcohol dependence with withdrawal, unspecified (5) Pancreatitis Chronicity: acute Pancreatitis type: alcohol induced Acute pancreatitis complication: unspecified Qualified Code(s): K85.20 - Alcohol induced acute pancreatitis without necrosis or infection (6) GERD (gastroesophageal reflux disease) Esophagitis presence: esophagitis presence not specified Qualified Code(s): K21.9 - Gastro-esophageal reflux disease without esophagitis (7) Chronic back pain Back pain location: low back pain Back pain laterality: left Sciatica presence: without sciatica Qualified Code(s): M54.5 - Low back pain; G89.29 - Other chronic pain (8) Hypothyroidism Hypothyroidism type: unspecified Qualified Code(s): E03.9 - Hypothyroidism, unspecified
[2019-06-08] MEDS: ENOXAPARIN INJ 40 MG/0.4 ML SYR SQ SCH (20:23)
[2019-06-08] MEDS: MAGNESIUM OXIDE 400 MG TAB PO SCH (20:23)
[2019-06-09] MEDS: LEVOTHYROXINE SODIUM 125 MCG TABLET PO SCH (05:58)
[2019-06-09 06:07] LABS: Hematocrit (blood only) 35.5 % (37-47); Hemoglobin 11.9 g/dL (12.0-16.0); Mean Corpuscular Hemoglobin 34.1 pg (25-34); Mean Corpuscular Hgb Conc 33.5 g/dL (32-36); Mean Corpuscular Volume 101.7 fL (80-100); Mean Platelet Volume 11.2 fL (7.4-10.4); Platelet Count 160 K/uL (130-400); RDW Coefficient of Variation 16.9 % (11.5-14.5); RDW Standard Deviation 60.1 fL (36.4-46.3); Red Blood Count 3.49 M/uL (4.2-5.4); White Blood Count 9.73 K/uL (4.8-10.8)
[2019-06-09 06:21] LABS: INR 1.4 (0.9-1.1); Prothrombin Time 14.2 Seconds (9.0-12.0)
[2019-06-09 06:41] LABS: Albumin Level 2.5 gm/dl (3.4-5.0); BUN Creatinine Ratio 12.2 (10-20); Est GFR (Non-African American) 103.5; Magnesium 1.9 mg/dl (1.8-2.4); Potassium 3.8 mmol/L (3.5-5.1)
[2019-06-09 06:44] LABS: Albumin Globulin Ratio 0.8 (0.9-2); Bilirubin,Total 4.5 mg/dl (0.2-1); Globulin 3.3 gm/dl (2.5-4.0); Phosphorus 2.7 mg/dl (2.5-4.9); Total Protein 5.8 gm/dl (6.4-8.2)
[2019-06-09] MEDS: LACTULOSE SYRUP 10 GM/15 ML BTL 960 ML PO SCH (08:54)
[2019-06-09] MEDS: PANTOprazole 40 MG TAB PO SCH ×2 (08:55→20:21)
[2019-06-09] MEDS: GABAPENTIN 300 MG CAP PO SCH ×3 (08:55→20:22)
[2019-06-09] MEDS: POTASSIUM CHLORIDE 20 MEQ TABCR PO SCH (08:55)
[2019-06-09] MEDS: THIAMINE HCL 100 MG TAB PO SCH (08:56)
[2019-06-09] MEDS: VITAMIN B COMPLEX TAB PO SCH (08:56)
[2019-06-09] MEDS: FOLIC ACID 1 MG TAB PO SCH (08:56)
[2019-06-09] MEDS: prednisoLONE SYRUP 15 MG/5 ML BTL PO SCH (08:57)
[2019-06-09] MEDS: POT PHOSPHATE MONOBASIC W/ SOD TAB PO SCH ×4 (08:57→21:17)
[2019-06-09] MEDS: CEROVITE ADV FORMULA TAB PO SCH (08:57)
[2019-06-09 09:50] LABS: Hepatitis A Antibody IgM NON-REACTIVE (NON-REACTIVE); Hepatitis B Core Antibody IgM NON-REACTIVE (NON-REACTIVE); Methyl Alcohol Comment WHOLE BLOOD; Methyl Alcohol Level NONE DETECTED (NONE DETECTED)
[2019-06-09] MEDS ORDERED: TRAMADOL HCL 50 MG TABLET PO STA (11:03)
[2019-06-09] MEDS: LIDOCAINE 5% 1 PATCH TD SCH (14:16)
[2019-06-09] MEDS: TRAMADOL HCL 50 MG TABLET PO PRN ×2 (17:06→22:35)
[2019-06-09] MEDS: ENOXAPARIN INJ 40 MG/0.4 ML SYR SQ SCH (20:23)
[2019-06-09] MEDS: MAGNESIUM OXIDE 400 MG TAB PO SCH (21:17)
--- NOTE | 2019-06-09 22:05 | Hospitalist Progress Note ---
Date of Service June 09, 2019 Assessment & Plan (1) Acute alteration in mental status: Now resolved. Suspected multifactorial due to alcohol withdrawal/hallucinosis, hepatic encephalopathy, insomnia (likely secondary to liver failure). (2) Acute alcoholic hepatitis: Severe alcohol induced hepatitis without ascites, possible acetaminophen component. Hepatitis viral panel negative to date. Bilirubin, INR and Plt continues to improve. No need to repeat daily at this time. Will give Vit K 2.5mg PO to determine if residual INR elevation residual to liver or vitamin deficiency. Bleeding prevention - continue stress ulcer prophylaxis with pantoprazole 40mg BID as per GI recommendations. Infection - urine culture +ve for Gardnerella/mixed (see below), no ascites on imaging and CXR clear. Afebrile (fever 4/2 repeated and normal; likely error in technique or documentation). No ascites Hemodynamic management - BP stable, volume status euvolemic Electrolyte abnormalities - appear stable on KCl 40 meq PO daily, repeat phosphorus level in AM to determine if phosphorus tablet still required. Admission alcoholic hepatitis scores: MELD score 52, 90-day mortality rate 98% - suspect this is over estimate given no ascites present which has been shown to be a good predictive factor for survival and rapid resolution of renal failure [place] hepatitis score >= 9 relates to much poorer 28 and 84 day survival. Discriminant function 254.3 (> 32 indicates poor prognosis). Patient and family aware of seriousness of her condition and advised regarding complete alcohol cessation. Rx Continue prednisolone 40mg PO daily, 28 day course with labs 1 week after discharge to Dr Carroll Nutritional supplements added as per commercial loan analyst recommendations. Discussed with pharmacy and cannot find water-miscible ADEK available however. Plan is for patient to go to a drug and alcohol rehab. No facility are available today. will plan to discharge tomorrow. (3) Acetaminophen overdose: Acetaminophen level 15mg/L [Nomogram treatment line - 17 hours]. Unknown exact time last taken but suspected to be night prior to admission (approximately 14-16 hours prior to testing). Completed NAC 72 hour protocol. Etiology remains much more likely alcohol induced. (4) Acute renal failure: Now resolved. Pre-renal Rx vasopressors and IV fluids on admission. (5) Hallucinations: Now resolved. Secondary to hepatitis, sleep deprivation, alcoholic withdrawal hallucinosis. (6) Elevated troponin: Serial troponin stable. Suspected related to demand-ischemia due to above. EKG WNL ECHO with no wall motion abnormalities. (7) UTI (urinary tract infection): Ruled out Gardnerella positive, suspected non pathogenic given number of epithelial cells in original sample. Asymptomatic. Mixed on repeat sample. No symptoms, therefore no treatment required for this. (8) History of ETOH abuse: As noted in HPI. Current use, hides it from her partner so unknown how much she truly drinks. Planning on inpatient rehabilitation on discharge. (9) Alcohol withdrawal: Now resolved off Librium taper. No current signs/symptoms of withdrawal. (10) Pancreatitis: Elevated lipase with imaging changes suggestive of mild pancreatitis with main etiology as hepatitis as above. At this stage can liberalize off low fat diet as no pain with eating. (11) Acute hyponatremia: Now resolved. Secondary to hypovolemia on admission. Recently poor PO intake with ongoing alcohol use. (12) Anxiety: Monitor. On no medications for this. (13) GERD (gastroesophageal reflux disease): Pantoprazole as above. (14) Chronic back pain: Continue gabapentin (home medication). Added tramadol and lidocaine patch. (15) Hepatic steatosis: noted on imaging. Will need to follow up with GI on discharge to assess for alcoholic cirrhosis. (16) Hypothyroidism: Continue levothyroxine PO 125 mcg daily (17) Lactic acidosis: Now resolved Secondary to alcohol. (18) Sinus tachycardia: Now resolved. Suspected multiple etiologies; electrolyte abnormalities, alcohol withdrawal, dehydration, NEERAJ, acute hepatitis. (19) Left upper extremity swelling: Secondary to infiltration of IV fluids earlier in admission. US negative for DVT. Keep elevated to help with swelling. (20) DVT prophylaxis: SCDs. Lovenox 40mg SQ HS. Admission and Anticipated Discharge Date Admission Date: June 02, 2019 Anticipated date of discharge: 06/10/19 Subjective Patient reports doing well. She has no new symptoms. Review of Systems Review of Systems: All systems reviewed & are unremarkable except as noted in HPI & below Physical Exam Physical Exam: Constitutional: + not well nourished and no acute distress Eyes: + scleral abnormality (icteric) Neck: normal visual inspection and trachea midline Respiratory: no respiratory distress Musculoskeletal: Left upper extremity swelling with bruising mildly improving Skin: Jaunduced appearing Neurologic: moves all extremities and awake; not confused Psychiatric: Orientation: alert and oriented x 3 Apperance: appropriately groomed Eye Contact: good eye contact Speech: normal rate/rhythm/volume of speech Affect: euthymic affect Mood: no depressed mood Thought Process: goal directed thought process Results & Data Results & Data ([facility]) Vital Signs (Past 12 Hours) Vital Signs Temp Pulse Resp BP Pulse Ox 06/09/19 15:52 36.5 C 89 18 112/71 97 PG Care Time/CCT Total # of Minutes Spent Total Time Spent with Patient: Total time spent is greater than 50% in coordination of care (as documented) at patient's floor/unit and/or counseling patient: Coding Level of Care Code 04209 Subseq Hosp Care Lvl 3 Diagnoses Acute alteration in mental status R41.82 Acute alcoholic hepatitis K70.10 Acetaminophen overdose T39.1X1A Encounter type: initial encounter Injury intent: accidental or unintentional Acute renal failure N17.9 Acute renal failure type: unspecified Hallucinations R44.3 Elevated troponin R79.89 UTI (urinary tract infection) N30.01 Hematuria presence: with hematuria Urinary tract infection type: acute cystitis History of ETOH abuse Z87.898 Alcohol withdrawal F10.239 Complication of substance-induced condition: with unspecified complication Pancreatitis K85.20 Acute pancreatitis complication: unspecified Chronicity: acute Pancreatitis type: alcohol induced Acute hyponatremia E87.1 Anxiety F41.9 GERD (gastroesophageal reflux disease) K21.9 Esophagitis presence: esophagitis presence not specified Chronic back pain M54.5; G89.29 Back pain laterality: left Back pain location: low back pain Sciatica presence: without sciatica Hepatic steatosis K76.0 Hypothyroidism E03.9 Hypothyroidism type: unspecified Lactic acidosis E87.2 Sinus tachycardia R00.0 Left upper extremity swelling M79.89 DVT prophylaxis Z29.9 Time Spent (min) 35 Comment chart review (1) UTI (urinary tract infection) Hematuria presence: with hematuria Urinary tract infection type: acute cystitis Qualified Code(s): N30.01 - Acute cystitis with hematuria (2) Acute renal failure Acute renal failure type: unspecified Qualified Code(s): N17.9 - Acute kidney failure, unspecified (3) Alcohol withdrawal Complication of substance-induced condition: with unspecified complication Qualified Code(s): F10.239 - Alcohol dependence with withdrawal, unspecified (4) Hypothyroidism Hypothyroidism type: unspecified Qualified Code(s): E03.9 - Hypothyroidism, unspecified (5) Pancreatitis Acute pancreatitis complication: unspecified Chronicity: acute Pancreatitis type: alcohol induced Qualified Code(s): K85.20 - Alcohol induced acute pancreatitis without necrosis or infection (6) Chronic back pain Back pain laterality: left Back pain location: low back pain Sciatica presence: without sciatica Qualified Code(s): M54.5 - Low back pain; G89.29 - Other chronic pain (7) Acetaminophen overdose Encounter type: initial encounter Injury intent: accidental or unintentional Qualified Code(s): T39.1X1A - Poisoning by 4-Aminophenol derivatives, accidental (unintentional), initial encounter (8) GERD (gastroesophageal reflux disease) Esophagitis presence: esophagitis presence not specified Qualified Code(s): K21.9 - Gastro-esophageal reflux disease without esophagitis
[2019-06-10] MEDS: TRAMADOL HCL 50 MG TABLET PO PRN ×2 (04:39→10:33)
[2019-06-10] MEDS: LEVOTHYROXINE SODIUM 125 MCG TABLET PO SCH (05:57)
[2019-06-10 06:14] LABS: INR 1.2 (0.9-1.1); Prothrombin Time 12.5 Seconds (9.0-12.0)
[2019-06-10] MEDS: THIAMINE HCL 100 MG TAB PO SCH (07:57)
[2019-06-10] MEDS: LACTULOSE SYRUP 10 GM/15 ML BTL 960 ML PO SCH (07:57)
[2019-06-10] MEDS: VITAMIN B COMPLEX TAB PO SCH (07:58)
[2019-06-10] MEDS: CEROVITE ADV FORMULA TAB PO SCH (07:58)
[2019-06-10] MEDS: FOLIC ACID 1 MG TAB PO SCH (07:58)
[2019-06-10] MEDS: POTASSIUM CHLORIDE 20 MEQ TABCR PO SCH (07:58)
[2019-06-10] MEDS: LIDOCAINE 5% 1 PATCH TD SCH (07:58)
[2019-06-10] MEDS: GABAPENTIN 300 MG CAP PO SCH ×2 (07:58→13:42)
[2019-06-10] MEDS: PANTOprazole 40 MG TAB PO SCH (07:58)
[2019-06-10] MEDS: prednisoLONE SYRUP 15 MG/5 ML BTL PO SCH (07:59)
[2019-06-10] MEDS: POT PHOSPHATE MONOBASIC W/ SOD TAB PO SCH ×2 (09:05→13:42)
== END 2019-06-10 15:25 | disposition alcohol treatment (31) | DRG 432 ==
LOC: ED 08:34 → 1E 10:57 → SUATTDRO 10:57 → 1E 11:20 → 2E 06-03 13:36 → 2N 06-06 10:37

== ENCOUNTER 2019-08-18 21:44 | Observation (INO) ==
[2019-08-18] MEDS ORDERED: ONDANSETRON INJ 2 MG/ML 2 ML VIAL IV STA (23:55)
[2019-08-18] MEDS ORDERED: MoRPHine SULFATE 4 MG/ML 1 ML CARP\\VIAL IV STA (23:55)
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
[2019-08-19 00:30] LABS: Basophils # (auto) 0.02 K/uL (0-0.2); Basophils % (auto) 0.6 %; Eosinophils # (auto) 0.02 K/uL (0-0.5); Eosinophils % (auto) 0.6 %; Hematocrit (blood only) 38.2 % (37-47); Hemoglobin 12.9 g/dL (12.0-16.0); Lymphocytes # (auto) 0.72 K/uL (1.2-3.4); Lymphocytes % (auto) 20.7 %; Mean Corpuscular Hgb Conc 33.8 g/dL (32-36); Mean Corpuscular Volume 97.7 fL (80-100); Mean Platelet Volume 10.6 fL (7.4-10.4); Monocytes # (auto) 0.22 K/uL (0.11-0.59); Monocytes % (auto) 6.3 %; Neutrophils % (auto) 71.8 %; Platelet Count 255 K/uL (130-400); RDW Coefficient of Variation 12.4 % (11.5-14.5); RDW Standard Deviation 44.2 fL (36.4-46.3); Red Blood Count 3.91 M/uL (4.2-5.4); White Blood Count 3.48 K/uL (4.8-10.8)
[2019-08-19 00:36] LABS: Appearance Urine Clear (Clear); Bacteria Urine Automated Negative (Negative); Bilirubin Urine Negative (Negative); Blood Urine Negative (Negative); Cast Urine Automated 0 /lpf (0-5); Color Urine Yellow; Glucose Urine UA Negative (Negative); Ketones Urine Negative (Negative); Leukocyte Esterase Urine Trace (Negative); Nitrite Urine Negative (Negative); Protein Urine Negative (Negative); RBC Urine Automated 0-4 /hpf (0-4); Specific Gravity Urine 1.006 (1.000-1.030); Urobilinogen Urine Negative (Negative); pH Urine 7.5 (4.5-7.5)
[2019-08-19 00:40] LABS: INR 1.1 (0.9-1.1); Partial Thromboplastin Ratio 1.1; Partial Thromboplastin Time 31.4 Seconds (21.0-31.0); Prothrombin Time 11.2 Seconds (9.0-12.0)
[2019-08-19 00:55] LABS: Alanine Aminotransferase 21 U/L (12-78); Albumin Level 3.7 gm/dl (3.4-5.0); Aspartate Aminotransferase 22 U/L (15-37); BUN Creatinine Ratio 7.4 (10-20); Blood Urea Nitrogen 5 mg/dl (7-18); Calcium 9.6 mg/dl (8.5-10.1); Carbon Dioxide 23 mmol/L (21-32); Chloride 108 mmol/L (98-107); Creatinine Clr Calc Pharmacy 92.2 ml/min; Est GFR (African American) 111.9; Est GFR (Non-African American) 96.6; Glucose 120 mg/dl (70-99); Lipase 136 U/L (73-393); Magnesium 1.8 mg/dl (1.8-2.4); Potassium 4.4 mmol/L (3.5-5.1); Sodium 139 mmol/L (136-145)
[2019-08-19 01:00] LABS: Albumin Globulin Ratio 0.8 (0.9-2); Alkaline Phosphatase 103 U/L (45-117); Bilirubin,Total 0.3 mg/dl (0.2-1); Globulin 4.4 gm/dl (2.5-4.0); Total Protein 8.1 gm/dl (6.4-8.2); Troponin I < 0.015 ng/ml (0-0.045)
[2019-08-19] MEDS ORDERED: OPTIRAY 320 125ml IV PRN (01:54)
[2019-08-19] MEDS ORDERED: MoRPHine SULFATE 4 MG/ML 1 ML CARP\\VIAL IV STA (02:57)
[2019-08-19] MEDS ORDERED: ONDANSETRON INJ 2 MG/ML 2 ML VIAL IV PRN (04:40)
[2019-08-19] MEDS ORDERED: LACTULOSE SYRUP 20 GM/30 ML UDC PO PRN (04:40)
[2019-08-19] MEDS ORDERED: MoRPHine SULFATE 4 MG/ML 1 ML CARP\\VIAL ONE (05:05)
--- NOTE | 2019-08-19 05:35 | History and Physical Report ---
DATE OF ADMISSION: 08/19/2019 CHIEF COMPLAINT: Left thoracic and flank pain. HISTORY OF PRESENT ILLNESS: This is a 54-year-old female with past medical history significant for hypothyroidism, GERD, history of alcoholism, chronic thoracic back pain, history of depression, who comes with left-sided lower ribcage and abdomen and back pain, going on for last 1 month. The patient states she thought the pain will get resolved, but it is not getting better, so she came to the ER. The patient states the pain is 8/10 in severity. Labs were unremarkable. Imaging studies done, CTA chest, no PE, except showing some 4.1 cm aneurysmal ascending aorta on the preliminary report. CT of the abdomen and pelvis preliminary report shows possible mesenteric panniculitis , some gallbladder distention. The patient received couple of doses of morphine, but still has some pain. Denies any other complaints. Pain is radiating up into the chest. No shortness of breath. She has cough on and off. No fever, but sometimes at night she feels chills. No headache, no dizziness, no blurred visions, no earache, no runny nose, no sore throat, no difficulty swallowing. Appetite is okay. No nausea. Normal bowel and bladder movements. No swelling in the legs. Currently, no rash. ALLERGIES: SULFA ANTIBIOTICS, TRAMADOL. PAST MEDICAL HISTORY: As mentioned above. PAST SURGICAL HISTORY: No past surgical history on file. MEDICATIONS: The patient is on bupropion 150 mg p.o. daily, vitamin D 1000 units p.o. daily, vitamin B12 1000 mcg p.o. daily, folic acid 1 mg p.o. daily, gabapentin 300 mg p.o. t.i.d., lactulose 15ml p.o. a.m., levothyroxine 150 mcg p.o. daily, magnesium oxide 400 mg p.o. p.m., Remeron 15 mg p.o. at bedtime, omega 3 fatty acid 1000 mg p.o. a.m., omeprazole 20 mg p.o. a.m., vitamin B 1000 mg p.o. daily. FAMILY HISTORY: No family history on file. SOCIAL HISTORY: No smoking. She used to drink alcohol, but stopped drinking since end of May. No drug use. REVIEW OF SYSTEMS: As per HPI. Rest of the review of systems negative. PHYSICAL EXAMINATION: GENERAL: The patient is of moderate build, not in acute distress. VITAL SIGNS: Temperature 36.9, pulse 108, respiratory rate 18, blood pressure 112/74, oxygen 99% on room air. HEENT: Pupils equal, round, and reactive to light. NECK: No JVD, no neck masses seen. CARDIOVASCULAR: S1, S2 heard. Regular rate and rhythm. No murmur, no gallop. RESPIRATORY SYSTEM: Normal AP diameter. No accessory muscle use. No wheezing, no crackles. ABDOMEN: Soft, bowel sounds present. Mild left upper quadrant tenderness, no guarding, no rigidity. CENTRAL NERVOUS SYSTEM: Cranial nerves II-XII grossly intact, nonfocal. EXTREMITIES: No edema, no erythema. LABORATORY DATA: WBC 3.4, hemoglobin 12.9, hematocrit 38.2, platelets 255. PT 11.2, INR 1.1, APTT 31.4. Sodium 139, potassium 4.4, chloride 108, bicarbonate 23, BUN 5, creatinine 0.7, serum glucose 120, calcium 9.6, magnesium 1.8, total bilirubin 0.3, AST 22, ALT 21, alkaline phosphatase 103. Troponin I less than 0.015. Lipase 136. Urinalysis, mild leukocyte esterase. IMAGING DATA: CT abdomen and pelvis, preliminary report showed possible mesenteric panniculitis, some gallbladder distention, no gallstones. CT of the chest, preliminary report, no PE. ASSESSMENT AND PLAN: This is a 54-year-old female who presents with left-sided thoracic pain and flank pain. 1. Left-sided thoracic pain radiating to the lower back and also left upper abdomen. Imaging studies show possible mesenteric panniculitis, otherwise unremarkable. This is going on for last 1 month. Pain control with IV morphine p.r.n. and oxycodone p.r.n. We will consult pain management for further recommendation. Observe in the medical floor. 2. Alcoholism. Stopped drinking since end of May, has appointment with hepatology in [place]. Continue lactulose, thiamine, folic acid, and vitamin B12. 3. Hypothyroidism, on Synthroid. 4. Depression, on bupropion and Remeron. 5. Gastroesophageal reflux disease, on omeprazole. 6. Deep venous thrombosis prophylaxis, sequential compression devices for now. 7. Disposition: Observation in medical floor. Expect to discharge home and follow with the family doctor. Level 1 full code. MTDD
[2019-08-19] MEDS: LEVOTHYROXINE SODIUM 150 MCG TABLET PO SCH (06:11)
[2019-08-19 06:52] LABS: Basophils # (auto) 0.01 K/uL (0-0.2); Basophils % (auto) 0.2 %; Eosinophils # (auto) 0.08 K/uL (0-0.5); Eosinophils % (auto) 1.7 %; Hematocrit (blood only) 36.5 % (37-47); Lymphocytes # (auto) 1.56 K/uL (1.2-3.4); Lymphocytes % (auto) 33.5 %; Mean Corpuscular Hemoglobin 31.8 pg (25-34); Mean Corpuscular Hgb Conc 32.9 g/dL (32-36); Mean Corpuscular Volume 96.8 fL (80-100); Mean Platelet Volume 10.3 fL (7.4-10.4); Monocytes # (auto) 0.66 K/uL (0.11-0.59); Monocytes % (auto) 14.2 %; Neutrophils # (auto) 2.34 K/uL (1.4-6.5); Neutrophils % (auto) 50.4 %; Platelet Count 239 K/uL (130-400); RDW Coefficient of Variation 12.4 % (11.5-14.5); RDW Standard Deviation 44.1 fL (36.4-46.3); Red Blood Count 3.77 M/uL (4.2-5.4); White Blood Count 4.65 K/uL (4.8-10.8)
--- NOTE | 2019-08-19 07:03 | CT Scan Report ---
CT angio chest PE protocol CT DOSE: 660.38 mGy.cm HISTORY: 54 years-old Female with Left breast, left abd pain, shortness of breath. Acute left-sided breast and abdominal pain with shortness of breath. TECHNIQUE: Multiple CTA images of the chest were obtained after the intravenous administration of 118 ml Optiray 320. Coronal and sagittal MIPS were obtained from the axial data set and were submitted for review. All measurements were obtained according to NASCET criteria. A dose lowering technique w as utilized adhering to the principles of ALARA. COMPARISON: CT abdomen and pelvis of same day FINDINGS: CTA: Heart is normal in size. No pericardial effusion. Fusiform dilation of the ascending thoracic aorta, 4.3 x 4.2 cm. No dissection. Patency of the imaged great vessels. The pulmonary arterial tree is opac ified to level of the segmental branches and demonstrates no filling defects to suggest pulmonary thr omboembolic disease. CT CHEST: Unremarkable thyroid. Mildly enlarged subcarinal lymph nodes measure up to 10 mm. Prominent paratrach eal and hilar lymph nodes measure up to 8-9 mm. No pneumothorax or pleural effusion. No overt pulmona ry edema or airspace consolidation typical for pneumonia. Minimal bibasilar subsegmental atelectasis. There are no suspicious pulmonary nodules or masses. Central airways appear patent. No acute process of the imaged upper abdomen. There are a few subcentimeter hypodensities noted throughout the liver which are too small to characterize. Soft tissues are unremarkable. Convex right curvature of the mid thoracic spine. Bones appear intact. There are no suspicious bone lesions or acute fracture. IMPRESSION: 1. No acute intrathoracic abnormality, specifically there is no evidence of pulmonary thromboembolic disease. 2. Fusiform dilation of the ascending thoracic aorta, 4.3 x 4.2 cm. No dissection. 3. Nonspecific mild subcarinal adenopathy, likely reactive. ACT 112: Negative or not required by law. The above report was generated using voice recognition software. It may contain grammatical, syntax o r spelling errors. Electronically signed by: Charlie Bryant M.D. 08/19/2019 7:02 AM
--- NOTE | 2019-08-19 07:17 | CT Scan Report ---
CT abd pelvis IV con only CT DOSE: HISTORY: Pain L breast pain into abdomen TECHNIQUE: Multiaxial CT images of the abdomen and pelvis were performed following the use of intrave nous contrast. A dose lowering technique was utilized adhering to the principles of ALARA. COMPARISON STUDY: None. FINDINGS: The lung bases are clear. The liver, spleen, gallbladder, pancreas, kidneys, and adrenal gl ands are within normal limits. No bowel wall thickening or obstruction. The pelvic organs are unremar kable. No suspicious lytic or blastic osseous lesions. Nonobstructive bowel pattern. IMPRESSION: No acute process in the abdomen or pelvis. ACT 112: Negative or not required by law. The above report was generated using voice recognition software. It may contain grammatical, syntax or spelling errors. Electronically signed by: Cj Holliday M.D. 08/19/2019 7:16 AM
--- NOTE | 2019-08-19 07:22 | Electrocardiogram Report ---
Test Reason : Blood Pressure : / mmHG Vent. Rate : 087 BPM Atrial Rate : 087 BPM P-R Int : 148 ms QRS Dur : 078 ms QT Int : 402 ms P-R-T Axes : 072 035 049 degrees QTc Int : 483 ms Normal sinus rhythm Abnormal ECG When compared with ECG of 03-JUN-2019 06:48, Nonspecific T wave abnormality no longer evident in Inferior leads Confirmed by Lance Warren ([id number]) on 08/19/2019 7:21:53 AM Referred By: Cj Watson Confirmed By:Jr Warren
[2019-08-19 07:29] LABS: BUN Creatinine Ratio 8.1 (10-20); Blood Urea Nitrogen 5 mg/dl (7-18); Calcium 9.3 mg/dl (8.5-10.1); Carbon Dioxide 27 mmol/L (21-32); Chloride 106 mmol/L (98-107); Est GFR (African American) 115.5; Est GFR (Non-African American) 99.7; Glucose 96 mg/dl (70-99); Magnesium 1.9 mg/dl (1.8-2.4); Potassium 4.2 mmol/L (3.5-5.1); Sodium 139 mmol/L (136-145)
[2019-08-19 07:34] LABS: Troponin I < 0.015 ng/ml (0-0.045)
[2019-08-19] MEDS: OXYCODONE HCL IR 5 MG TAB (IMMEDIATE RELEASE) PO PRN ×3 (08:28→19:53)
[2019-08-19] MEDS: PANTOprazole 40 MG TAB PO SCH (08:35)
[2019-08-19] MEDS: THIAMINE HCL 100 MG TAB PO SCH (08:35)
[2019-08-19] MEDS: BuPROPion XL 150 MG TABCR PO SCH (08:35)
[2019-08-19] MEDS: FOLIC ACID 1 MG TAB PO SCH (08:36)
[2019-08-19] MEDS: CYANOCOBALAMIN 500 MCG TABLET (VITAMIN B-12) PO SCH (08:36)
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
[2019-08-19] MEDS ORDERED: GABAPENTIN 300 MG CAP PO SCH (09:00)
[2019-08-19] MEDS: MoRPHine SULFATE 4 MG/ML 1 ML CARP\\VIAL IV PRN ×2 (09:18→23:47)
[2019-08-19] MEDS: GABAPENTIN 300 MG CAP PO SCH (09:19)
[2019-08-19] MEDS: DICLOFENAC SOD 1% GEL 100 GM TUBE EXT SCH ×2 (10:13→15:51)
--- NOTE | 2019-08-19 12:22 | Electrocardiogram Report ---
Test Reason : Blood Pressure : / mmHG Vent. Rate : 091 BPM Atrial Rate : 091 BPM P-R Int : 140 ms QRS Dur : 078 ms QT Int : 390 ms P-R-T Axes : 063 021 042 degrees QTc Int : 479 ms Normal sinus rhythm Possible Left atrial enlargement Low voltage QRS Inferior infarct (cited on or before 15-MAY-2018) Abnormal ECG When compared with ECG of 03-JUN-2019 06:48, Nonspecific T wave abnormality no longer evident in Inferior leads Confirmed by Lance Warren ([id number]) on 08/19/2019 12:22:31 PM Referred By: Cj Watson Confirmed By:Jr Warren
[2019-08-19] MEDS: GABAPENTIN 600 MG TAB PO SCH ×2 (14:02→20:42)
--- NOTE | 2019-08-19 17:11 | Hospitalist Progress Note ---
Date of Service August 19, 2019 Assessment & Plan (1) Left sided abdominal pain: has chronic low back pain , mostly at left side with radiation to left groin CT abdomen/pelvis and CT chest shows no significant pathology MRI of lumber spine on 11/2018 shows multilevel DJD on lumber spine appreciate input from Pain management Neurontin dose adjusted ordered for PT/OT spinal ortho Dr Chisholm consulted for recommendation HX OF ETOH ABUSE : counselled for ETOH addiction due to high risk of abuse /overdose -pt should no be discharged with any narcotic pain meds INCIDENTAL FINDING OF ASCENDING AORTA ANEURYSM : ordered for Echo needs survillance CT chest and ECHO 8-12 months DISPSOSITION : discharge home when back pain is better controlled Admission and Anticipated Discharge Date Admission Date: August 19, 2019 Subjective complains of left sided back pain , radiation to left groin no weakness or paresthesia no complain of chest pain or SOB no cough no fever or chill Review of Systems Review of Systems: All systems reviewed & are unremarkable except as noted in HPI & below Musculoskeletal: + back pain Physical Exam Constitutional: WD/WN, vitals as above no acute distress Eyes: PERRL, conjunctivae normal, anicteric sclerae ENMT: external ear and nose normal, oropharynx normal Neck: trachea midline, no thyromegaly Respiratory: normal respiratory effort, lungs clear to auscultation Cardiovascular: RRR, no murmur, no edema Gastrointestinal (Abdomen): normal bowel sounds, soft, nontender, no hepatosplenomegaly Musculoskeletal: no cyanosis or clubbing, extremities motor strength 5/5 Skin: no rashes, warm and dry Neurologic: PERRL, EOMI, accommodation nl, no face palsy, no dysarthria Psychiatric: A+Ox3, euthymic affect Results & Data Results & Data ([facility]) Vital Signs (Past 12 Hours) Vital Signs Temp Pulse Resp BP Pulse Ox 08/19/19 15:06 36.7 C 89 16 108/72 93 08/19/19 07:02 36.6 C 88 16 106/72 97
[2019-08-19] MEDS: MAGNESIUM OXIDE 400 MG TAB PO SCH (20:42)
[2019-08-19] MEDS: MIRTAZAPINE TAB 15 MG TAB PO SCH (20:42)
[2019-08-19 22:19] LABS: Amphetamines+Metham, Urine Neg (Neg); Barbiturates, Urine Neg (Neg); Benzodiazepine, Urine Neg (Neg); Cocaine, Urine Neg (Neg); MDMA (Ecstacy), Urine Neg (Neg); Methadone, Urine Neg (Neg); Opiate, Urine Pos (Neg); Phencyclidine, Urine Neg (Neg)
[2019-08-20] MEDS: LEVOTHYROXINE SODIUM 150 MCG TABLET PO SCH (05:02)
[2019-08-20] MEDS: DICLOFENAC SOD 1% GEL 100 GM TUBE EXT SCH ×2 (08:57→15:45)
[2019-08-20] MEDS: GABAPENTIN 600 MG TAB PO SCH ×3 (08:58→20:36)
[2019-08-20] MEDS: PANTOprazole 40 MG TAB PO SCH (08:58)
[2019-08-20] MEDS: FOLIC ACID 1 MG TAB PO SCH (08:58)
[2019-08-20] MEDS: CYANOCOBALAMIN 500 MCG TABLET (VITAMIN B-12) PO SCH (08:59)
[2019-08-20] MEDS: BuPROPion XL 150 MG TABCR PO SCH (08:59)
[2019-08-20] MEDS: THIAMINE HCL 100 MG TAB PO SCH (08:59)
[2019-08-20] MEDS ORDERED: CHOLECALCIFEROL 1,000 UNITS 25 MCG TAB PO SCH (09:00)
[2019-08-20] MEDS: OXYCODONE HCL IR 5 MG TAB (IMMEDIATE RELEASE) PO PRN ×2 (09:40→15:45)
[2019-08-20] MEDS: GABAPENTIN 300 MG CAP PO SCH (09:52)
[2019-08-20] MEDS ORDERED: GADOBUTROL 65ML VIAL IV PRN (13:28)
--- NOTE | 2019-08-20 15:01 | Magnetic Resonance Report ---
MR thoracic spine wo/w con HISTORY: 54 years-old Female Thoracic pain with syrinx acute left-sided back pain with numbness and tingling. Clinical concern for possible syrinx. COMPARISON: CTA of the chest 08/19/2019, MRI thoracic spine 10/31/2018, CTA of the chest 08/19/2019. TECHNIQUE: Multiplanar and multisequence MRI of the thoracic spine was obtained both with and without the use of 6.5 mL Gadavist. FINDINGS: The dental technician instructor localizer images demonstrate no gross extraspinal abnormality. Mild convex right curvature of the midthoracic spine. Study is limited by motion artifact. T2 hyperintense focus of the dorso tania tral and left lateral aspect of the thoracic spinal cord centered at the level of T5-T6 is redemonstr ated overall measuring approximately 2.0 cm in craniocaudal dimension and measuring 0.4 x 0.6 cm in A P and transverse dimension. No appreciable enhancement. This appears to be intramedullary. No new abn ormal signal abnormalities of the thoracic spinal cord. No abnormal enhancement. Vertebral body heigh ts are well-maintained. There is no acute fracture or subluxation. Mild multilevel disc space narrowi ng with minimal spondylitic spurring and at least moderate facet arthrosis. No high-grade central can al or foraminal narrowing. Moderate to severe discogenic degeneration with posterior disc osteophyte complex formations are noted involving the lower cervical spine with multilevel foraminal narrowing. Fusiform dilation of the ascending thoracic aorta redemonstrated. Cardiomegaly. IMPRESSION: Unchanged size and appearance of the T2 hyperintense intramedullary lesion of the thoraci c spinal cord centered at T5-T6 without appreciable enhancement. Differential considerations would in clude but are not limited to demyelinating plaque, remote insult such as prior cord infarct or cord t rauma with resultant atypical syrinx. A spontaneous cord herniation or low-grade nonenhancing neoplas m are considered less likely. ACT 112: Positive. There are findings on this exam that require communication between the performing entity and the patient following Patient Test Result Information Act ([place] Act 112) guidelines. The above report was generated using voice recognition software. It may contain grammatical, syntax o r spelling errors. Dictated: 08/20/2019 2:10 PM Transcribed: 08/20/2019 2:38 PM Raya [id number] [email or web address] Electronically signed by: Charlie Bryant M.D. 08/20/2019 3:00 PM
--- NOTE | 2019-08-20 19:33 | Hospitalist Progress Note ---
Date of Service August 20, 2019 Assessment & Plan (1) Left sided abdominal pain: has chronic low back pain , mostly at left side with radiation to left groin CT abdomen/pelvis and CT chest shows no significant pathology MRI of lumber spine on 11/2018 shows multilevel DJD on lumber spine Pain management on board and recommended to continue gabapentin 900mg in am and 600mg in the afternoon and night Ortho on board recommended to get a MRI thoracic spine MRI showed unchanged size and appearance of the T2 hyperintense intramedullary lesion of the thoracic spinal cord centered at T5-T6 without appreciable enhancement. Continue PT/OT HX OF ETOH ABUSE : counselled for ETOH addiction due to high risk of abuse /overdose -pt should no be discharged with any narcotic pain meds INCIDENTAL FINDING OF ASCENDING AORTA ANEURYSM : CTA chest showed fusiform dilation of the ascending thoracic aorta, 4.3 x 4.2 cm. No dissection. Echo showed LV function without regional wall motion abnormality, ejection fraction 55 to 60%. Aortic root diameter of 3.9 cm ascending aorta not well visualized Will need survillance CT chest and ECHO 8-12 months DISPOSITION : Possible discharge home tomorrow Admission and Anticipated Discharge Date Admission Date: August 19, 2019 Subjective Pt was seen and examined Lying in bed with no distress Pt was testing in her phone when i entered the room He said that her pain slightly improves Denies any chest pain, palpitation, dizziness and SOB Physical Exam Physical Exam: General- No acute distress Head- atraumatic Eyes- PERRL, EOMI, ENT- oropharynx clear Neck- supple, no JVD Lungs- clear to auscultation Heart- regular rhythm; no murmur Abdomen- normal bowel sounds, soft, nontender Extremities- no calf tenderness Neuro- alert, oriented x 3; PERRL, EOMI; no facial palsy; no dysarthria Skin- warm & dry Results & Data Results & [facility] ([facility]) Vital Signs (Past 12 Hours) Vital Signs Temp Pulse Resp BP Pulse Ox 08/20/19 15:52 36.5 C 08/20/19 15:34 93 H 16 96/62 L 94 08/20/19 07:46 36.7 C 86 16 94/56 L 94
[2019-08-20] MEDS: MIRTAZAPINE TAB 15 MG TAB PO SCH (20:36)
[2019-08-20] MEDS: MAGNESIUM OXIDE 400 MG TAB PO SCH (20:36)
[2019-08-20] MEDS: MoRPHine SULFATE 4 MG/ML 1 ML CARP\\VIAL IV PRN (20:36)
[2019-08-21] MEDS: LEVOTHYROXINE SODIUM 150 MCG TABLET PO SCH (06:08)
[2019-08-21] MEDS: OXYCODONE HCL IR 5 MG TAB (IMMEDIATE RELEASE) PO PRN ×2 (06:08→13:13)
[2019-08-21] MEDS: DICLOFENAC SOD 1% GEL 100 GM TUBE EXT SCH ×2 (08:41→15:49)
[2019-08-21] MEDS: CYANOCOBALAMIN 500 MCG TABLET (VITAMIN B-12) PO SCH (08:42)
[2019-08-21] MEDS: GABAPENTIN 600 MG TAB PO SCH ×2 (08:42→14:07)
[2019-08-21] MEDS: THIAMINE HCL 100 MG TAB PO SCH (08:42)
[2019-08-21] MEDS: PANTOprazole 40 MG TAB PO SCH (08:42)
[2019-08-21] MEDS: FOLIC ACID 1 MG TAB PO SCH (08:42)
[2019-08-21] MEDS: BuPROPion XL 150 MG TABCR PO SCH (08:43)
[2019-08-21] MEDS: MoRPHine SULFATE 4 MG/ML 1 ML CARP\\VIAL IV PRN ×2 (08:49→15:54)
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
--- NOTE | 2019-08-21 16:41 | Hospitalist Progress Note ---
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 No surgical intervention as per Ortho Ortho suggested to follow up with neurosurgeon as outpatient Continue PT/OT HX OF ETOH ABUSE : counselled for ETOH addiction Continue folic acid and thiamine due to high risk of abuse /overdose -pt should no be discharged with any narcotic pain meds INCIDENTAL FINDING OF ASCENDING AORTA ANEURYSM : CTA chest showed fusiform dilation of the ascending thoracic aorta, 4.3 x 4.2 cm. No dissection. Echo showed LV function without regional wall motion abnormality, ejection fraction 55 to 60%. Aortic root diameter of 3.9 cm ascending aorta not well visualized Will need follow CT chest and ECHO 8-12 months for surveillance DISPOSITION : Discharge home today Admission and Anticipated Discharge Date Admission Date: August 19, 2019 Subjective Pt was seen and examined Lying in bed with no distress Pt said that her pain is control Denies any chest pain, palpitation, dizziness and SOB Physical Exam Physical Exam: General- No acute distress Head- atraumatic Eyes- PERRL, EOMI, ENT- oropharynx clear Neck- supple, no JVD Lungs- clear to auscultation Heart- regular rhythm; no murmur Abdomen- normal bowel sounds, soft, nontender Extremities- no calf tenderness Neuro- alert, oriented x 3; PERRL, EOMI; no facial palsy; no dysarthria Skin- warm & dry Results & Data Results & Data ([facility]) Vital Signs (Past 12 Hours) Vital Signs Temp Pulse Resp BP Pulse Ox 08/21/19 15:25 36.7 C 93 H 16 113/74 93 08/21/19 07:05 36.8 C 91 H 18 110/75 97
--- NOTE | 2019-08-22 09:14 | Discharge Summary ---
Date of Service August 21, 2019 Admission HPI Per Admitting Provider CHIEF COMPLAINT: Left thoracic and flank pain. HISTORY OF PRESENT ILLNESS: This is a 54-year-old female with past medical history significant for hypothyroidism, GERD, history of alcoholism, chronic thoracic back pain, history of depression, who comes with left-sided lower ribcage and abdomen and back pain, going on for last 1 month. The patient states she thought the pain will get resolved, but it is not getting better, so she came to the ER. The patient states the pain is 8/10 in severity. Labs were unremarkable. Imaging studies done, CTA chest, no PE, except showing some 4.1 cm aneurysmal ascending aorta on the preliminary report. CT of the abdomen and pelvis preliminary report shows possible mesenteric panniculitis , some gallbladder distention. The patient received couple of doses of morphine, but still has some pain. Denies any other complaints. Pain is radiating up into the chest. No shortness of breath. She has cough on and off. No fever, but sometimes at night she feels chills. No headache, no dizziness, no blurred visions, no earache, no runny nose, no sore throat, no difficulty swallowing. Appetite is okay. No nausea. Normal bowel and bladder movements. No swelling in the legs. Currently, no rash. Admission Exam Per Admitting Provider GENERAL: The patient is of moderate build, not in acute distress. VITAL SIGNS: Temperature 36.9, pulse 108, respiratory rate 18, blood pressure 112/74, oxygen 99% on room air. HEENT: Pupils equal, round, and reactive to light. NECK: No JVD, no neck masses seen. CARDIOVASCULAR: S1, S2 heard. Regular rate and rhythm. No murmur, no gallop. RESPIRATORY SYSTEM: Normal AP diameter. No accessory muscle use. No wheezing, no crackles. ABDOMEN: Soft, bowel sounds present. Mild left upper quadrant tenderness, no guarding, no rigidity. CENTRAL NERVOUS SYSTEM: Cranial nerves II-XII grossly intact, nonfocal. EXTREMITIES: No edema, no erythema. Principal Diagnosis Left sided abdominal pain: HX OF ETOH ABUSE : INCIDENTAL FINDING OF ASCENDING AORTA ANEURYSM : Discharge Exam General- No acute distress Head- atraumatic Eyes- PERRL, EOMI, ENT- oropharynx clear Neck- supple, no JVD Lungs- clear to auscultation Heart- regular rhythm; no murmur Abdomen- normal bowel sounds, soft, nontender Extremities- no calf tenderness Neuro- alert, oriented x 3; PERRL, EOMI; no facial palsy; no dysarthria Skin- warm & dry Discharge Data Allergies Allergy/AdvReac Type Severity Reaction Status Date / Time Sulfa (Sulfonamide Allergy Intermediate Rash Unverified 08/19/19 02:32 Antibiotics) tramadol AdvReac Unknown NAUSEA Verified 08/19/19 02:32 Consultations 08/19/19 03:12 ED Decision to Admit Stat 08/19/19 04:40 Consult Case Management - Discharge Planning Routine 08/19/19 08:00 Consult Pain Management Routine 08/19/19 18:14 Consult Orthopedic Surgery Routine Ordered Studies 08/18/19 23:56 CT abd pelvis IV con only Urgent 08/19/19 01:03 CT angio chest PE protocol Urgent 08/20/19 07:44 MR thoracic spine wo/w con Routine CT abd pelvis IV con only CT DOSE: HISTORY: Pain L breast pain into abdomen TECHNIQUE: Multiaxial CT images of the abdomen and pelvis were performed following the use of intravenous contrast. A dose lowering technique was utilized adhering to the principles of ALARA. COMPARISON STUDY: None. FINDINGS: The lung bases are clear. The liver, spleen, gallbladder, pancreas, kidneys, and adrenal glands are within normal limits. No bowel wall thickening or obstruction. The pelvic organs are unremarkable. No suspicious lytic or blastic osseous lesions. Nonobstructive bowel pattern. IMPRESSION: No acute process in the abdomen or pelvis. ACT 112: Negative or not required by law. The above report was generated using voice recognition software. It may contain grammatical, syntax or spelling errors. Electronically signed by: Cj Holliday M.D. 08/19/2019 7:16 AM Dictated: 08/19/19709 Transcribed: 08/19/[address] angio chest PE protocol CT DOSE: 660.38 mGy.cm HISTORY: 54 years-old Female with Left breast, left abd pain, shortness of breath. Acute left-sided breast and abdominal pain with shortness of breath. TECHNIQUE: Multiple CTA images of the chest were obtained after the intravenous administration of 118 ml Optiray 320. Coronal and sagittal MIPS were obtained from the axial data set and were submitted for review. All measurements were obtained according to NASCET criteria. A dose lowering technique was utilized adhering to the principles of ALARA. COMPARISON: CT abdomen and pelvis of same day FINDINGS: CTA: Heart is normal in size. No pericardial effusion. Fusiform dilation of the ascending thoracic aorta, 4.3 x 4.2 cm. No dissection. Patency of the imaged great vessels. The pulmonary arterial tree is opacified to level of the segmental branches and demonstrates no filling defects to suggest pulmonary thromboembolic disease. CT CHEST: Unremarkable thyroid. Mildly enlarged subcarinal lymph nodes measure up to 10 mm. Prominent paratracheal and hilar lymph nodes measure up to 8-9 mm. No pneumothorax or pleural effusion. No overt pulmonary edema or airspace consolidation typical for pneumonia. Minimal bibasilar subsegmental atelectasis. There are no suspicious pulmonary nodules or masses. Central airways appear patent. No acute process of the imaged upper abdomen. There are a few subcentimeter hypodensities noted throughout the liver which are too small to characterize. Soft tissues are unremarkable. Convex right curvature of the midthoracic spine. Bones appear intact. There are no suspicious bone lesions or acute fracture. IMPRESSION: 1. No acute intrathoracic abnormality, specifically there is no evidence of pulmonary thromboembolic disease. 2. Fusiform dilation of the ascending thoracic aorta, 4.3 x 4.2 cm. No dissection. 3. Nonspecific mild subcarinal adenopathy, likely reactive. ACT 112: Negative or not required by law. The above report was generated using voice recognition software. It may contain grammatical, syntax or spelling errors. Electronically signed by: Charlie Bryant M.D. 08/19/2019 7:02 AM Dictated: 08/19/19 0657 Transcribed: 08/19/19 0657 MR thoracic spine wo/w con HISTORY: 54 years-old Female Thoracic pain with syrinx acute left-sided back pain with numbness and tingling. Clinical concern for possible syrinx. COMPARISON: CTA of the chest 08/19/2019, MRI thoracic spine 10/31/2018, CTA of the chest 08/19/2019. TECHNIQUE: Multiplanar and multisequence MRI of the thoracic spine was obtained both with and without the use of 6.5 mL Gadavist. FINDINGS: The director of scout work localizer images demonstrate no gross extraspinal abnormality. Mild convex right curvature of the midthoracic spine. Study is limited by motion artifact. T2 hyperintense focus of the dorso central and left lateral aspect of the thoracic spinal cord centered at the level of T5-T6 is redemonstrated overall measuring approximately 2.0 cm in craniocaudal dimension and measuring 0.4 x 0.6 cm in AP and transverse dimension. No appreciable enhancement. This appears to be intramedullary. No new abnormal signal abnormalities of the thoracic spinal cord. No abnormal enhancement. Vertebral body heights are well-maintained. There is no acute fracture or subluxation. Mild multilevel disc space narrowing with minimal spondylitic spurring and at least moderate facet arthrosis. No high-grade central canal or foraminal narrowing. Moderate to severe discogenic degeneration with posterior disc osteophyte complex formations are noted involving the lower cervical spine with multilevel foraminal narrowing. Fusiform dilation of the ascending thoracic aorta redemonstrated. Cardiomegaly. 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 Differential considerations would include but are not limited to demyelinating plaque, remote insult such as prior cord infarct or cord trauma with resultant atypical syrinx. A spontaneous cord herniation or low-grade nonenhancing neoplasm are considered less likely. ACT 112: Positive. There are findings on this exam that require communication between the performing entity and the patient following Patient Test Result Information Act ([place] Act 112) guidelines. The above report was generated using voice recognition software. It may contain grammatical, syntax or spelling errors. Dictated: 08/20/2019 2:10 PM Transcribed: 08/20/2019 2:38 PM Raya [id number] [email or web address] Electronically signed by: Charlie Bryant M.D. 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 No surgical intervention as per Ortho Ortho suggested to follow up with neurosurgeon as outpatient Continue PT/OT HX OF ETOH ABUSE : counselled for ETOH addiction Continue folic acid and thiamine due to high risk of abuse /overdose -pt should no be discharged with any narcotic pain meds INCIDENTAL FINDING OF ASCENDING AORTA ANEURYSM : CTA chest showed fusiform dilation of the ascending thoracic aorta, 4.3 x 4.2 cm. No dissection. Echo showed LV function without regional wall motion abnormality, ejection fraction 55 to 60%. Aortic root diameter of 3.9 cm ascending aorta not well visualized Will need follow CT chest and ECHO 8-12 months for surveillance DISPOSITION : Discharge home today Total Time Total Time Spent Total Time Spent (In Minutes): 35 minutes Total Time Includes: Examination of the Patient, Discharge Planning, Medication Reconciliation, Communication With Other Providers and Other Discharge Plan Discharge Items Patient Disposition: Home - Self-Care Reason For Visit: FLANK PAIN Discharge Diagnosis: Left sided abdominal pain: HX OF ETOH ABUSE : INCIDENTAL FINDING OF ASCENDING AORTA ANEURYSM : Condition on Discharge: Good Activity: Resume your previous activity Non-emergency contact: Primary Care Provider Call non-emergency contact if: you have any medication questions Follow-up/Referrals: Cj Watson MD [Primary Care Provider] - 08/28/19 11:40 am (Date & Time 08/28/2019 11:40 AM Provider Kristin Bowling [facility] ) Diet: Regular Addtl Attending Provider Instructions: Follow up with your primary care provider Dr. Watson on 08/28/19 Your physician will refer you with neurosurgery for evaluation Continue physical and occupational therapy Counseling on alcohol cessation Fall precaution Outpatient follow up for the ascending aorta aneurysm with repeat imaging in 6 months Pending Studies at Discharge: No Stand-Alone Forms: My [employer] Smoking Cessation Medications and DC Order Prescriptions: New gabapentin 600 mg Tablet 600 mg PO TID 30 Days Qty: 90 RF: 0 Continued omeprazole 20 mg capsule,delayed release(DR/EC) 20 mg PO QAM RF: 0 omega-3 fatty acids [Fish Oil Concentrate] 1,000 mg Capsule 1,000 mg PO QAM RF: 0 cyanocobalamin (vitamin B-12) [Vitamin B-12] 1,000 mcg Tablet 1,000 mcg PO QAM RF: 0 cholecalciferol (vitamin D3) [Vitamin D3] 1,000 unit Capsule 1,000 unit PO WE RF: 0 thiamine HCl (vitamin B1) [Vitamin B-1] 100 mg Tablet 100 mg PO QAM Qty: 30 RF: 0 folic acid 1 mg Tablet 1 mg PO QAM Qty: 30 RF: 0 lactulose 20 gram/30 mL Solution 15 ml PO QAM PRN (Reason: 2-2 BM daily) Qty: 3000 RF: 0 magnesium oxide 400 mg (241.3 mg magnesium) Tablet 400 mg PO QPM Qty: 30 RF: 0 levothyroxine 150 mcg tablet 150 mcg PO DAILY RF: 0 bupropion HCl 150 mg tablet extended release 24 hr 150 mg PO DAILY RF: 0 mirtazapine 15 mg tablet 15 mg PO HS RF: 0 Discontinued gabapentin [Neurontin] 300 mg capsule 300 mg PO TID RF: 0 Discharge Orders: Discharge Order (Routine); Ordered 08/21/19 Ordered By: Rosaline Knight Admission Data Admit Date/Time: 08/19/19 04:00 Attending Provider: Rosaline Knight Admit Provider: Carlos Mejia Primary Care Provider: Cj Watson Other Providers: Carlos Mejia ; Trevor Pearson ; Nigel Chisholm Other Interventions: Discharge Summary Assessment (RN) Last Done: 08/21/19 17:10 DC Date/Time DO NOT enter until pt leaves facility: 08/21/19 18:04
[2019-08-22 13:09] LABS: Codeine Urine NEGATIVE ng/mL (<50); Hydrocodone Urine NEGATIVE ng/mL (<50); Hydromor Urine NEGATIVE ng/mL (<50); Morphine Urine 265 ng/mL (<50); Norhydrocodone Conf Ur NEGATIVE ng/mL (<50); Noroxycodone Urine 598 ng/mL (<50); Oxycodone Urine 528 ng/mL (<50); Oxymorph Urine NEGATIVE ng/mL (<50)
== END 2019-08-21 18:04 | disposition home or self-care (01) ==
LOC: 3N 21:44 → ED 21:44 → SUATTDRO 08-19 04:00 → 3N 08-19 04:24
DX: G89.29 Other chronic pain; R10.9 Unspecified abdominal pain; Z86.59 Personal history of other mental and behavioral disorders; Z88.2 Allergy status to sulfonamides; E78.5 Hyperlipidemia, unspecified; M54.9 Dorsalgia, unspecified; Z79.890 Hormone replacement therapy; K21.9 Gastro-esophageal reflux disease without esophagitis; M19.90 Unspecified osteoarthritis, unspecified site; E03.9 Hypothyroidism, unspecified; F32.9 Major depressive disorder, single episode, unspecified; Z79.899 Other long term (current) drug therapy; I71.2 Thoracic aortic aneurysm, without rupture

== ENCOUNTER 2021-04-26 09:37 | Inpatient (IN) ==
[2021-04-26 10:49] LABS: Basophils # (auto) 0.05 K/uL (0-0.2); Basophils % (auto) 0.7 %; Eosinophils # (auto) 0.11 K/uL (0-0.5); Eosinophils % (auto) 1.6 %; Hematocrit (blood only) 35.1 % (37-47); Hemoglobin 11.7 g/dL (12.0-16.0); Immature Granulocytes # (auto) 0.01 K/uL (0.00-0.02); Immature Granulocytes % (auto) 0.1 %; Lymphocytes # (auto) 0.95 K/uL (1.2-3.4); Lymphocytes % (auto) 13.6 %; Mean Corpuscular Hemoglobin 35.1 pg (25-34); Mean Corpuscular Hgb Conc 33.3 g/dL (32-36); Mean Corpuscular Volume 105.4 fL (80-100); Mean Platelet Volume 10.4 fL (7.4-10.4); Monocytes # (auto) 0.75 K/uL (0.11-0.59); Monocytes % (auto) 10.7 %; Neutrophils # (auto) 5.12 K/uL (1.4-6.5); Neutrophils % (auto) 73.3 %; Platelet Count 324 K/uL (130-400); RDW Coefficient of Variation 16.9 % (11.5-14.5); RDW Standard Deviation 65.1 fL (36.4-46.3); Red Blood Count 3.33 M/uL (4.2-5.4); White Blood Count 6.99 K/uL (4.8-10.8)
[2021-04-26 10:58] LABS: INR 1.5 (0.9-1.1); Prothrombin Time 14.5 Seconds (9.0-12.0)
[2021-04-26 11:12] LABS: Pregnancy Test, Serum Negative (Negative)
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
[2021-04-26 11:15] LABS: Albumin Globulin Ratio 0.5 (0.9-2); Albumin Level 2.6 gm/dl (3.4-5.0); BUN Creatinine Ratio 3.8 (10-20); Bilirubin,Total 3.6 mg/dl (0.2-1.0); Calcium 8.1 mg/dl (8.5-10.1); Creatinine Clr Calc Pharmacy 122.6 ml/min; Est GFR (African American) 123.9 ml/min; Est GFR (Non-African American) 106.9 ml/min; Globulin 5.4 gm/dl (2.5-4.0); Potassium 3.3 mmol/L (3.5-5.1)
[2021-04-26] MEDS ORDERED: SODIUM CHLORIDE 0.9% 1000ML 500 ML IV ONE (12:11)
[2021-04-26] MEDS ORDERED: ALBUMIN 25% 100 mL 25 GM/100 ML VIAL IV ONE ×2 (13:09→15:00)
[2021-04-26] MEDS ORDERED: POTASSIUM CHLORIDE CRTAB 20 MEQ TABCR PO STA (13:25)
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
[2021-04-26 14:27] LABS: Thyroid Stimulating Hormone 19.951 uIu/ml (0.300-4.500)
[2021-04-26 15:01] LABS: T4 Free Thyroxine 1.46 ng/dl (0.61-1.60)
[2021-04-26] MEDS: SODIUM CHLORIDE 0.9% 500 ML IV SCH ×3 (16:12→22:54)
[2021-04-26 17:24] LABS: BUN Creatinine Ratio 5.3 (10-20); Blood Urea Nitrogen 2 mg/dl (6-23); Calcium 7.6 mg/dl (8.5-10.1); Carbon Dioxide 22 mmol/L (21-32); Chloride 101 mmol/L (98-107); Est GFR (African American) 138.2 ml/min; Est GFR (Non-African American) 119.3 ml/min; Glucose 59 mg/dl (70-99(Fasting))
[2021-04-26 18:47] LABS: Potassium 3.4 mmol/L (3.5-5.1)
[2021-04-26] MEDS ORDERED: MAGNESIUM HYDROXIDE SUSP 30 ML UDC PO PRN (20:22)
[2021-04-26] MEDS ORDERED: POLYETHYLENE (MIRALAX) 17 GM PACK PO PRN (20:22)
[2021-04-26] MEDS ORDERED: ONDANSETRON INJ 2 MG/ML 2 ML VIAL IV PRN (20:22)
[2021-04-26] MEDS ORDERED: ACETAMINOPHEN 325 MG TAB PO PRN (20:22)
[2021-04-26] MEDS ORDERED: ALUMINUM/MAGNESIUM SUSP 30 ML UDC PO PRN (20:22)
[2021-04-26 20:33] LABS: Appearance Urine Clear (Clear); Bilirubin Urine Negative (Negative); Blood Urine Negative (Negative); Color Urine Yellow; Glucose Urine UA Negative (Negative); Ketones Urine Negative (Negative); Leukocyte Esterase Urine Negative (Negative); Nitrite Urine Negative (Negative); Protein Urine Negative (Negative); Specific Gravity Urine 1.004 (1.000-1.030); Urobilinogen Urine Negative (Negative); pH Urine 7.5 (4.5-7.5)
[2021-04-26] MEDS: AMOXICILLIN/CLAVULANATE 875 MG TAB PO SCH (21:17)
[2021-04-26] MEDS: GABAPENTIN 400 MG CAP PO SCH (21:30)
[2021-04-26] MEDS: GABAPENTIN 800 MG TAB PO SCH (21:30)
[2021-04-26] MEDS: SODIUM CHLORIDE 0.9% 1000ML 1,000 ML IV SCH (22:55)
[2021-04-26] MEDS: MoRPHine SULFATE 4 MG/ML 1 ML CARP\\VIAL IV PRN (23:37)
[2021-04-26 23:39] LABS: BUN Creatinine Ratio 4.9 (10-20); Creatinine Clr Calc Pharmacy 157.9 ml/min; Est GFR (African American) 134.8 ml/min; Est GFR (Non-African American) 116.3 ml/min; Potassium 3.5 mmol/L (3.5-5.1)
[2021-04-26] MEDS: NICOTINE 21 MG/24 HR TDSY TD SCH (23:50)
[2021-04-27 04:43] LABS: Hematocrit (blood only) 29.7 % (37-47); Hemoglobin 9.7 g/dL (12.0-16.0); Mean Corpuscular Hemoglobin 34.5 pg (25-34); Mean Corpuscular Hgb Conc 32.7 g/dL (32-36); Mean Corpuscular Volume 105.7 fL (80-100); Mean Platelet Volume 9.9 fL (7.4-10.4); Platelet Count 254 K/uL (130-400); RDW Standard Deviation 66.2 fL (36.4-46.3); Red Blood Count 2.81 M/uL (4.2-5.4); White Blood Count 6.59 K/uL (4.8-10.8)
[2021-04-27 05:05] LABS: Albumin Globulin Ratio 0.7 (0.9-2); Albumin Level 2.6 gm/dl (3.4-5.0); BUN Creatinine Ratio 4.5 (10-20); Bilirubin,Total 3.1 mg/dl (0.2-1.0); Calcium 7.7 mg/dl (8.5-10.1); Creatinine Clr Calc Pharmacy 147.1 ml/min; Est GFR (African American) 131.7 ml/min; Est GFR (Non-African American) 113.6 ml/min; Magnesium 1.7 mg/dl (1.7-2.4); Potassium 3.6 mmol/L (3.5-5.1); Total Protein 6.6 gm/dl (6.0-8.3)
[2021-04-27 05:29] LABS: Basophils # (auto) 0.04 K/uL (0-0.2); Basophils % (auto) 0.6 %; Eosinophils # (auto) 0.12 K/uL (0-0.5); Eosinophils % (auto) 1.8 %; Immature Granulocytes # (auto) 0.01 K/uL (0.00-0.02); Immature Granulocytes % (auto) 0.2 %; Lymphocytes # (auto) 0.95 K/uL (1.2-3.4); Lymphocytes % (auto) 14.4 %; Monocytes % (auto) 12.1 %; Neutrophils # (auto) 4.67 K/uL (1.4-6.5); Neutrophils % (auto) 70.9 %
[2021-04-27] MEDS: SODIUM CHLORIDE 0.9% 1000ML 1,000 ML IV SCH (05:34)
[2021-04-27] MEDS: MoRPHine SULFATE 4 MG/ML 1 ML CARP\\VIAL IV PRN ×3 (05:45→20:44)
[2021-04-27 05:52] LABS: INR 1.6 (0.9-1.1); Prothrombin Time 15.5 Seconds (9.0-12.0)
[2021-04-27] MEDS ORDERED: ALBUMIN 25% 100 mL 25 GM/100 ML VIAL IV ONE ×2 (06:00→11:00)
[2021-04-27] MEDS ORDERED: LEVOTHYROXINE SODIUM 125 MCG TABLET PO SCH (06:30)
[2021-04-27] MEDS ORDERED: CHOLECALCIFEROL 1,000 UNITS 25 MCG TAB PO SCH (09:00)
[2021-04-27] MEDS ORDERED: PANTOprazole 40 MG TAB PO SCH (09:00)
[2021-04-27] MEDS: GABAPENTIN 800 MG TAB PO SCH ×3 (10:16→20:43)
[2021-04-27] MEDS: CYANOCOBALAMIN (B-12) 500 MCG TABLET PO SCH (10:17)
--- NOTE | 2021-04-27 10:17 | Ultrasound Report ---
ULTRASOUND-GUIDED DIAGNOSTIC AND THERAPEUTIC PARACENTESIS: HISTORY: Ascites Procedure: The procedure and its risks, benefits and alternatives were discussed with the patient and written informed consent was obtained. Preliminary ultrasound of the abdomen was performed to determ ine a safe needle entry site. The right lower quadrant was prepped and draped in the usual sterile fashion. 1% Lidocaine was used f or local anesthesia. A paracentesis needle-sheath was inserted into the peritoneal space using ultras ound guidance. The needle was removed and the sheath was connected to tubing and a vacuum suction dev ice. A total of 1.5 liters of yellow ascites was aspirated. The sheath was removed and a sterile dres sing applied. The patient tolerated the procedure well and there were no immediate complications. IMPRESSION: Ultrasound-guided diagnostic and therapeutic paracentesis with aspiration of 1.5 liters of ascites. 1 L was sent to the laboratory at the request of the referring physician. ACT 112: Negative or not required by law. Electronically signed by: Sadiq Hoffmann M.D. 04/27/2021 10:16 AM
[2021-04-27] MEDS: FOLIC ACID 1 MG TAB PO SCH (10:18)
[2021-04-27] MEDS: AMOXICILLIN/CLAVULANATE 875 MG TAB PO SCH (10:18)
[2021-04-27] MEDS: buPROPion XL 150 MG TABCR PO SCH (10:18)
[2021-04-27] MEDS: GABAPENTIN 400 MG CAP PO SCH ×3 (10:19→20:44)
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
[2021-04-27 11:06] LABS: BUN Creatinine Ratio 4.7 (10-20); Calcium 7.9 mg/dl (8.5-10.1); Creatinine Clr Calc Pharmacy 154.1 ml/min; Est GFR (African American) 132.7 ml/min; Est GFR (Non-African American) 114.5 ml/min; Potassium 3.5 mmol/L (3.5-5.1)
[2021-04-27 11:07] LABS: Appearance Peritoneal Fluid CLEAR; Basophils, Fluid 1 %; Color Peritoneal Fluid YELLOW; Eosinophils, Fluid 0 %; Lymphocytes, Fluid 24 %; Mono,Macrophage,Mesothelial 71 %; Neutrophils, Fluid 4 %; RBC Peritoneal Fluid (A) < 3000 /uL; WBC Peritoneal Fluid (A) 361 /ul (0-300)
[2021-04-27] MEDS: NICOTINE 21 MG/24 HR TDSY TD SCH (11:41)
--- NOTE | 2021-04-27 15:09 | Hospitalist Progress Note ---
Date of Service April 27, 2021 Assessment & Plan (1) Abdominal ascites: (2) Decompensated hepatic cirrhosis: (3) Hyponatremia: Plan: 55-year-old female w/ past medical history of prior alcohol use (quit 6 weeks ago), chronic back pain, depression with anxiety, hypothyroidism and newly diagnosed with cirrhosis presented to ER 04/27 secondary to referral from GI due to abdominal ascites. She is being managed for the following: #. Acute decompensated cirrhosis #. Abdominal ascites Sent by referral from GI due to abdominal ascites. Albumin 2.6 at admission, INR 1.5 at admission. Patient not on any anticoagulation. OP hepatic panel negative per records. Meld of 22 upon presentation. 04/27---> ultrasound-guided diagnostic and therapeutic paracentesis with aspiration of 1.5 L of ascitic fluid.---> Analysis negative for SBP, await cultures. No indication of antibiotic, patient does not report any belly pain, nontender on abdominal exam. Patient afebrile. WBC WNL. GI evaluated: Low-sodium diet, spironolactone 50 mg daily, BMP in 5 days upon discharge, referral for liver transplant evaluation with Quynh Villalta NP (f/u OP) in light of MELD 20. Continue and maintain abstinence from alcohol, patient states she recently quit drinking 6 weeks ago. Counselling done. #. Hyponatremia Admitting sodium level of 132, likely in setting of hypervolemia/ascites and poor p.o. intake Low-sodium diet, increase protein content in the diet. Monitor sodium level daily. #. Likely upper GI bleed Admitting hemoglobin of 11.7 Patient reports passing black stool, Hb dropped to 9.7 today Continue to monitor hemoglobin daily. Discussed with GI, will put her on clear liquid diet, n.p.o. after midnight and follow-up with hemoglobin tomorrow morning. Continue with PPI. #. Hypothyroidism History of, on levothyroxine 125 MCG daily 04/26 TSH is 19.95 with FT4 of 1.46 Will increase levothyroxine dose to 150 mcg daily f/u with thyroid function test in 6 weeks. Depression with anxiety on Wellbutrin as outpt E.Coli UTI dx as outpt Status post antibiotic course. DVT ppx: SCD/TEDS for now,no heparin for concern of upper GI bleed, await FOBT Dispo: Tele PCP: Shirley FULL CODE Admission and Anticipated Discharge Date Admission Date: April 26, 2021 Subjective Patient seen and examined at bedside for acute decompensated cirrhosis and abdominal ascites. Patient lying in bed, NAD, on room air, no new acute events overnight. Patient reports some dark stools, send FOBT. Patient reports some belly discomfort. Patient reports eating okay. Patient denies any fever/chills/headache/chest pain/palpitations/increased belly pain/other review of symptoms. Physical Exam Physical Exam: GENERAL: Alert and oriented x3. NAD, on RA. HEENT: No pallor, no icterus. Pupils equal, round and reactive to light. Oral mucosa moist. NECK: No JVD, no neck masses. HEART: S1 and S2 heard. Regular rate and rhythm. No murmur, no gallop. RESPIRATORY SYSTEM: Normal AP diameter. No accessory muscle use. No wheezing, no crackles. ABDOMEN: Soft, bowel sounds present, nontender, + distention. CENTRAL NERVOUS SYSTEM: No facial droop. Speech is clear. Obeys simple commands. Moves extremities. EXTREMITIES: No edema, no erythema seen. Results & Data Results & Data ([facility]) Vital Signs (Past 12 Hours) Vital Signs Temp Pulse Pulse Resp BP Pulse Ox 04/27/21 11:23 36.7 C 91 H 20 122/80 98 04/27/21 07:36 94 H 04/27/21 07:31 36.6 C 91 H 20 114/81 97 04/27/21 05:57 36.8 C 93 H 18 123/83 96 04/27/21 03:00 37 C 98 H 18 107/69 95
[2021-04-27] MEDS: SPIRONOLACTONE 25 MG TAB PO SCH (16:08)
[2021-04-27] MEDS: PANTOprazole 40 MG in SYRINGE 0 ML IV SCH (20:44)
[2021-04-28 05:59] LABS: Hematocrit (blood only) 32.1 % (37-47); Hemoglobin 10.1 g/dL (12.0-16.0); Mean Corpuscular Hemoglobin 33.6 pg (25-34); Mean Corpuscular Hgb Conc 31.5 g/dL (32-36); Mean Corpuscular Volume 106.6 fL (80-100); Mean Platelet Volume 10.4 fL (7.4-10.4); Platelet Count 247 K/uL (130-400); RDW Standard Deviation 65.7 fL (36.4-46.3); Red Blood Count 3.01 M/uL (4.2-5.4)
[2021-04-28] MEDS: MoRPHine SULFATE 4 MG/ML 1 ML CARP\\VIAL IV PRN ×3 (06:19→20:57)
[2021-04-28] MEDS: LEVOTHYROXINE SODIUM 150 MCG TABLET PO SCH (06:19)
[2021-04-28 06:20] LABS: Anion Gap 5 (3-11); Blood Urea Nitrogen < 2 mg/dl (6-23); Calcium 8.2 mg/dl (8.5-10.1); Carbon Dioxide 25 mmol/L (21-32); Chloride 102 mmol/L (98-107); Creatinine Clr Calc Pharmacy 159.8 ml/min; Est GFR (African American) 135.9 ml/min; Est GFR (Non-African American) 117.3 ml/min; Glucose 62 mg/dl (70-99(Fasting)); Magnesium 1.7 mg/dl (1.7-2.4); Phosphorus 2.9 mg/dl (2.5-4.9); Potassium 3.7 mmol/L (3.5-5.1); Sodium 132 mmol/L (136-145)
[2021-04-28 06:52] LABS: INR 1.6 (0.9-1.1); Prothrombin Time 15.6 Seconds (9.0-12.0)
[2021-04-28] MEDS: buPROPion XL 150 MG TABCR PO SCH (09:13)
[2021-04-28] MEDS: CYANOCOBALAMIN (B-12) 500 MCG TABLET PO SCH (09:13)
[2021-04-28] MEDS: FOLIC ACID 1 MG TAB PO SCH (09:13)
[2021-04-28] MEDS: GABAPENTIN 400 MG CAP PO SCH ×3 (09:14→20:53)
[2021-04-28] MEDS: GABAPENTIN 800 MG TAB PO SCH ×3 (09:14→20:53)
[2021-04-28] MEDS: NICOTINE 21 MG/24 HR TDSY TD SCH (09:14)
[2021-04-28] MEDS: PANTOprazole 40 MG in SYRINGE 0 ML IV SCH (09:15)
[2021-04-28] MEDS: SPIRONOLACTONE 25 MG TAB PO SCH (09:15)
[2021-04-28] MEDS: MAGNESIUM OXIDE 400 MG TAB PO SCH ×2 (10:00→20:54)
--- NOTE | 2021-04-28 10:25 | Gastroenterology Progress Note ---
Date of Service April 28, 2021 Assessment & Plan (1) Alcoholic cirrhosis of liver with ascites: Plan: No evidence of SBP. Regarding pt c/o sharp left sided abd pain but is able to eat, ambulate, does not have leukocytosis or SBP. It is reasonable to work this up as an OP. Will have our office reach out to her to close interval follow up. Low salt diet. Reviewed with pt complications of cirrhosis: yellow eyes, skin, rapidly increasing abd girth and/or weight, blood in BMs, confusion. Enc to call immediately if notices any of these. GI will sign off. Please notify us of new/worrisome findings. Admission and Anticipated Discharge Date Admission Date: April 26, 2021 Supervising Physician Co-Signing Physician Notes Attending attestation I have seen, examined this patient, and agree with the findings and above by our mid-level provider GRACE Huffman, with the following additions: - doing well, low salt diet - outpt f/u Subjective 55 female admitted on 04/26 for new ascites, underwent paracentesis yesterday with removal of 1.5 L of fluid, (-) for SBP. Kept overnight because slight drop in Hb and pt had reported a "dark BM" per hospitalist but pt doesn't recall black BMs when I talked with her about this this morning and stool sample has come back occult negative. Hb 12 on arrival - >9.7 yesterday to 10.1 today. Did not receive blood transfusion. Today pt mentions left mid abd sharp pain that comes and goes, lasts about an hour at a time, present for about a week. Not sure if related to eating or defecation. Review of Systems Review of Systems: ROS: Gen: Denies weakness, fevers, weight loss Eyes: No eye redness, or pain, no recent vision changes Resp: No SOB, no cough Cardio: No palpitations/irregular beats, no chest pain GI: As per HPI, otherwise (-). : Denies pain on urination Skin: No jaundice, itching or new rashes Physical Exam Constitutional: well developed and cooperative Eyes: PERRL, conjunctivae normal, anicteric sclerae Respiratory: normal respiratory effort, lungs clear to auscultation Cardiovascular: RRR, no murmur, no edema Gastrointestinal (Abdomen): Percussion/Palpation: + abdomen tender (Mild diffuse adbdominal msk tenderness. No signs of acute abdomen.) and abdomen soft; no guarding and abdomen not rigid moderate, non taunt ascites. Skin: no rashes, warm and dry normal turgor Neurologic: PERRL, EOMI, accommodation nl, no face palsy, no dysarthria awake; not confused Psychiatric: A+Ox3, euthymic affect Lymphatic: no cervical or axillary lymphadenopathy Results & Data ([facility]) Vital Signs (Past 12 Hours) Vital Signs Temp Pulse Pulse Resp BP Pulse Ox 04/28/21 07:36 36.9 C 91 H 18 124/78 96 04/28/21 07:30 94 H 04/28/21 03:00 36.9 C 91 H 18 127/78 96 04/27/21 22:20 97 H Laboratory Results WBC 6, Hb 10, Hct 32, Plts 247, INR 1.6, Na 132, K 3.7, Cl 102, CO2 27, BUN 8, Cr 0.71, glucose 82. Ascitic fluid analysis: 361 WBCs with 4% neutrophils. Cx pending. Diagnostic Findings US Ultrasound-guided diagnostic and therapeutic paracentesis with aspiration of 1.5 liters of ascites. 1 L was sent to the laboratory at the request of the referring physician.
--- NOTE | 2021-04-28 12:08 | XRay Report ---
KUB HISTORY: Acute left lower quadrant abdominal pain left sided belly pain COMPARISON: KUB 06/03/2019 FINDINGS: Air-filled dilated loops of large and small bowel. Large bowel loops measure up to 3.5 cm. Small bowel loops measure up to 3.5 cm. No renal calculi. No ureteral calculi. Pelvic basin phleboli ths. No pneumoperitoneum or pneumatosis. Mild lumbar levoscoliosis with multilevel degenerative ridley es. No fracture. IMPRESSION: Air-filled dilated loops of large and small bowel are suggestive of ileus versus distal obstruction. Follow-up recommended. ACT 112: Negative or not required by law. The above report was generated using voice recognition software. It may contain grammatical, syntax o r spelling errors. Electronically signed by: Benjamin Bryant M.D. 04/28/2021 12:07 PM
[2021-04-28 14:15] LABS: Appearance Urine Clear (Clear); Bacteria Urine Automated Negative (Negative); Blood Urine Negative (Negative); Color Urine Dark Yellow; Epithelial Cell Urine Auto >30 /lpf (0-5); Glucose Urine UA Negative (Negative); Ketones Urine Trace (Negative); Leukocyte Esterase Urine Trace (Negative); Nitrite Urine Negative (Negative); Protein Urine Negative (Negative); RBC Urine Automated 0-4 /hpf (0-4); Specific Gravity Urine 1.014 (1.000-1.030); Urobilinogen Urine Negative (Negative)
[2021-04-28 14:18] LABS: Bilirubin Urine 1+ (Negative)
[2021-04-28 14:28] LABS: Mucus Urine Present (None Prsent)
--- NOTE | 2021-04-28 17:56 | Hospitalist Progress Note ---
Date of Service April 28, 2021 Assessment & Plan (1) Abdominal ascites: (2) Decompensated hepatic cirrhosis: (3) Hyponatremia: Plan: 55-year-old female w/ past medical history of prior alcohol use (quit 6 weeks ago), chronic back pain, depression with anxiety, hypothyroidism and newly diagnosed with cirrhosis presented to ER 04/27 secondary to referral from GI due to abdominal ascites. She is being managed for the following: #. Acute decompensated cirrhosis #. Abdominal ascites Sent by referral from GI due to abdominal ascites. Albumin 2.6 at admission, INR 1.5 at admission. Patient not on any anticoagulation. OP hepatic panel negative per records. Meld of 22 upon presentation. 04/27---> ultrasound-guided diagnostic and therapeutic paracentesis with aspiration of 1.5 L of ascitic fluid.---> Analysis negative for SBP, await cultures. SBP ruled out. Patient afebrile. WBC WNL. GI evaluated: Low-sodium diet, spironolactone 50 mg daily, BMP in 5 days upon discharge, referral for liver transplant evaluation with Quynh Villalta NP (f/u OP) in light of MELD 20. Continue and maintain abstinence from alcohol, patient states she recently quit drinking 6 weeks ago [employer]OL [employer]. Counselling done. #. Left belly pain Pt complaining of left sided belly pain KUB sent, and reviewed, concern for ileus, pt had moved 2 bowels today, c/w diet as tolerated. UA concerning for yeast versus liz, await Cx Recent OP treatment for UTI Send CTAP #. Hyponatremia Admitting sodium level of 132, likely in setting of hypervolemia/ascites and poor p.o. intake Low-sodium diet, increase protein content in the diet. Monitor sodium level daily. #. Likely upper GI bleed - ruled out Admitting hemoglobin of 11.7 Patient reported passing black stool 04/27, Hb dropped to 9.7 on 04/27 04/28 FOBT neg, Hb stable DC iv ppi, resume home ppi #. Hypothyroidism History of, on levothyroxine 125 MCG daily 04/26 TSH is 19.95 with FT4 of 1.46 Will increase levothyroxine dose to 150 mcg daily f/u with thyroid function test in 6 weeks. Depression with anxiety on Wellbutrin as outpt E.Coli UTI dx as outpt Status post antibiotic course which she completed 2 days into admission. DVT ppx: Heparin Dispo: Tele PCP: Shirley FULL CODE Admission and Anticipated Discharge Date Admission Date: April 26, 2021 Subjective Patient seen and examined at bedside for acute decompensated cirrhosis and abdominal ascites. Patient lying in bed, NAD, on room air, no new acute events overnight. Patient has moved bowels twice today. Patient reports left-sided belly discomfort, urine analysis sent and abnormal, CT abdomen pelvis sent. KUB x-ray revealed bowel dilatation. Patient reports eating okay. Patient denies any fever/chills/headache/chest pain/palpitations/other review of symptoms. Physical Exam Physical Exam: GENERAL: Alert and oriented x3. NAD, on RA. HEENT: No pallor, no icterus. Pupils equal, round and reactive to light. Oral mucosa moist. NECK: No JVD, no neck masses. HEART: S1 and S2 heard. Regular rate and rhythm. No murmur, no gallop. RESPIRATORY SYSTEM: Normal AP diameter. No accessory muscle use. No wheezing, no crackles. ABDOMEN: Soft, bowel sounds present, nontender, + distention. CENTRAL NERVOUS SYSTEM: No facial droop. Speech is clear. Obeys simple commands. Moves extremities. EXTREMITIES: No edema, no erythema seen. Results & Data Results & Data ([facility]) Vital Signs (Past 12 Hours) Vital Signs Temp Pulse Pulse Resp BP Pulse Ox 04/28/21 15:35 95 H 04/28/21 14:43 36.9 C 95 H 20 125/81 99 04/28/21 11:39 36.7 C 94 H 20 138/89 97 04/28/21 07:36 36.9 C 91 H 18 124/78 96 04/28/21 07:30 94 H
[2021-04-28] MEDS: HEPARIN SOD 5,000 UNIT/0.5 ML VIAL SQ SCH (20:55)
--- NOTE | 2021-04-28 21:18 | CT Scan Report ---
CT OF THE ABDOMEN AND PELVIS WITHOUT CONTRAST CLINICAL HISTORY: Left-sided abdominal pain; r/o stone ; UA abnormal COMPARISON STUDY: CT of the abdomen and pelvis August 19, 2019. TECHNIQUE: Axial images of the abdomen and pelvis were obtained without IV contrast. Images were revi ewed in the axial, sagittal, and coronal planes. Automated exposure control was utilized for the artem dy. A dose lowering technique was utilized adhering to the principles of ALARA. FINDINGS: Lung bases are unremarkable. No pneumatosis, free air or portal venous gas is present. 2 cm nodular density anterior to the distal esophagus is unchanged since CT of August 19, 2019. No renal, u reteral or bladder calculi are present. There is no hydronephrosis. Evaluation of the remainder of th e abdomen and pelvis is suboptimal on this unenhanced exam. There is marked hepatic steatosis. Mild h epatomegaly is noted. The liver is likely cirrhotic. Gallbladder is mildly distended. A small amount of abdominal and pelvic ascites is noted. Unenhanced images of the spleen, adrenal glands, kidneys an d pancreas are unremarkable. There is no biliary or pancreatic ductal dilatation. Colonic diverticulo sis is noted without evidence for acute diverticulitis. There are probable small collaterals within t he abdomen and pelvis. No acute fracture or suspicious lesion is identified within visualized skeleta l structures. There is avascular necrosis of the bilateral femoral heads without collapse. Appendix i s partially obscured by ascites but likely normal. IMPRESSION: 1. No urinary calculi or hydronephrosis. 2. Marked hepatic steatosis. Hepatomegaly. Probable cirrhosis. Suboptimal evaluation of the liver on unenhanced exam. Probable small collaterals within the abdomen and pelvis. Small amount of ascites. 3. No bowel obstruction. Colonic diverticulosis without evidence for acute diverticulitis. 4. Avascular necrosis of the bilateral femoral heads without collapse. ACT 112: Negative or not required by law. Electronically signed by: Heber Lugo M.D. 04/28/2021 9:16 PM
[2021-04-29] MEDS: GABAPENTIN 400 MG CAP PO SCH ×4 (05:35→20:29)
[2021-04-29] MEDS: LEVOTHYROXINE SODIUM 150 MCG TABLET PO SCH (05:36)
[2021-04-29 06:51] LABS: Hematocrit (blood only) 30.6 % (37-47); Hemoglobin 10.3 g/dL (12.0-16.0); Mean Corpuscular Hemoglobin 35.4 pg (25-34); Mean Corpuscular Hgb Conc 33.7 g/dL (32-36); Mean Corpuscular Volume 105.2 fL (80-100); Mean Platelet Volume 10.5 fL (7.4-10.4); Platelet Count 249 K/uL (130-400); RDW Coefficient of Variation 16.7 % (11.5-14.5); RDW Standard Deviation 64.1 fL (36.4-46.3); Red Blood Count 2.91 M/uL (4.2-5.4); White Blood Count 6.23 K/uL (4.8-10.8)
[2021-04-29 07:21] LABS: Calcium 8.2 mg/dl (8.5-10.1); Creatinine Clr Calc Pharmacy 159.8 ml/min; Est GFR (African American) 135.9 ml/min; Est GFR (Non-African American) 117.3 ml/min; Magnesium 1.7 mg/dl (1.7-2.4); Potassium 3.9 mmol/L (3.5-5.1)
[2021-04-29] MEDS: NICOTINE 21 MG/24 HR TDSY TD SCH (09:45)
[2021-04-29] MEDS: FOLIC ACID 1 MG TAB PO SCH (09:46)
[2021-04-29] MEDS: buPROPion XL 150 MG TABCR PO SCH (09:46)
[2021-04-29] MEDS: MAGNESIUM OXIDE 400 MG TAB PO SCH ×2 (09:46→20:30)
[2021-04-29] MEDS: CYANOCOBALAMIN (B-12) 500 MCG TABLET PO SCH (09:46)
[2021-04-29] MEDS: GABAPENTIN 800 MG TAB PO SCH ×3 (09:46→20:29)
[2021-04-29] MEDS: HEPARIN SOD 5,000 UNIT/0.5 ML VIAL SQ SCH ×2 (09:46→20:30)
[2021-04-29] MEDS: PANTOprazole 40 MG TAB PO SCH (09:47)
[2021-04-29] MEDS: SPIRONOLACTONE 25 MG TAB PO SCH (09:47)
[2021-04-29] MEDS: POLYETHYLENE (MIRALAX) 17 GM PACK PO SCH (09:47)
[2021-04-29] MEDS: MoRPHine SULFATE 4 MG/ML 1 ML CARP\\VIAL IV PRN ×2 (10:09→20:31)
[2021-04-29] MEDS: FUROSEMIDE 20 MG TAB PO SCH (11:37)
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
--- NOTE | 2021-04-29 16:19 | XRay Report ---
XR hip RT 2V w pelvis CLINICAL HISTORY: Right hip pain. Avascular necrosis. COMPARISON STUDY: Pelvis and left hip 01/12/2020. FINDINGS: No fracture or dislocation within the pelvis or hips. The sacrum is intact. Cartilage space s are maintained. No evidence for avascular necrosis of the femoral heads by conventional radiographi c technique.. Degenerative changes again noted within the lower lumbar spine. IMPRESSION: No fracture or dislocation within the pelvis or hips. ACT 112: Negative or not required by law. Electronically signed by: Sadiq Hoffmann M.D. 04/29/2021 4:17 PM
--- NOTE | 2021-04-29 18:35 | Hospitalist Progress Note ---
Date of Service April 29, 2021 Assessment & Plan (1) Abdominal ascites: (2) Decompensated hepatic cirrhosis: (3) Hyponatremia: Plan: 55-year-old female w/ past medical history of prior alcohol use (quit 6 weeks ago), chronic back pain, depression with anxiety, hypothyroidism and newly diagnosed with cirrhosis presented to ER 04/27 secondary to referral from GI due to abdominal ascites. She is being managed for the following: #. Acute decompensated cirrhosis #. Abdominal ascites Sent by referral from GI due to abdominal ascites. Albumin 2.6 at admission, INR 1.5 at admission. Patient not on any anticoagulation. OP hepatic panel negative per records. Meld of 22 upon presentation. 04/27---> ultrasound-guided diagnostic and therapeutic paracentesis with aspiration of 1.5 L of ascitic fluid.---> Analysis negative for SBP, await cultures. SBP ruled out. Patient afebrile. WBC WNL. GI evaluated: Low-sodium diet, spironolactone 50 mg daily, BMP in 5 days upon discharge, referral for liver transplant evaluation with Quynh Villalta NP (f/u OP) in light of MELD 20. Continue and maintain abstinence from alcohol, patient states she recently quit drinking 6 weeks ago [employer]. Counselling done. Add lasix 20 mg daily 04/29 #. Left belly pain Pt complaining of left sided belly pain, still present - mild intensity 04/28 KUB --> concern for ileus, pt had moved 2 bowels 03/28, c/w diet as tolerated. 04/28 CTAP ruled out bowel obstruction, hydronephrosis, renal stones. Urine culture: Yeast, will not treat as patient does not have any signs or symptoms. Recent OP treatment for UTI #. Bilateral femoral head avascular necrosis 04/28 CTAP positive for avascular necrosis of bilateral femoral heads without col lapse Orthopedic consulted: Conservative management, follow-up with orthopedics in 6 to 12 months for repeat imaging. Sooner if she develops pain in either hip prior to that time. #. Hyponatremia Admitting sodium level of 132, likely in setting of hypervolemia/ascites and poor p.o. intake Na 130 today Low-sodium diet, increase protein content in the diet. Monitor sodium level daily. #. Likely upper GI bleed - ruled out Admitting hemoglobin of 11.7 Patient reported passing black stool 04/27, Hb dropped to 9.7 on 04/27 04/28 FOBT neg, Hb stable c/w home ppi #. Hypothyroidism History of, on levothyroxine 125 MCG daily 04/26 TSH is 19.95 with FT4 of 1.46 Will increase levothyroxine dose to 150 mcg daily f/u with thyroid function test in 6 weeks. Depression with anxiety on Wellbutrin as outpt E.Coli UTI dx as outpt Status post antibiotic course which she completed 2 days into admission. DVT ppx: Heparin Dispo: Tele PCP: Shirley FULL CODE Disposition: Likely DC tomorrow unless no new issues arise. Admission and Anticipated Discharge Date Admission Date: April 26, 2021 Subjective Patient seen and examined at bedside for acute decompensated cirrhosis and abdominal ascites. Patient lying in bed, NAD, on room air, no new acute events overnight. Patient has moved bowels twice yesterday. Patient reports continuing left-sided belly discomfort, CTAP reviewed, pain could be from hip necrosis. Patient reports eating okay. Patient denies any fever/chills/headache/chest pain/palpitations/other review of symptoms. Physical Exam Physical Exam: GENERAL: Alert and oriented x3. NAD, on RA. HEENT: No pallor, no icterus. Pupils equal, round and reactive to light. Oral mucosa moist. NECK: No JVD, no neck masses. HEART: S1 and S2 heard. Regular rate and rhythm. No murmur, no gallop. RESPIRATORY SYSTEM: Normal AP diameter. No accessory muscle use. No wheezing, no crackles. ABDOMEN: Soft, bowel sounds present, nontender, + distention. CENTRAL NERVOUS SYSTEM: No facial droop. Speech is clear. Obeys simple commands. Moves extremities. EXTREMITIES: No edema, no erythema seen. Results & Data Results & Data ([facility]) Vital Signs (Past 12 Hours) Vital Signs Temp Pulse Pulse Resp BP Pulse Ox 04/29/21 15:12 91 H 04/29/21 15:09 36.8 C 93 H 20 128/88 96 04/29/21 11:32 36.7 C 93 H 20 132/86 98 04/29/21 08:00 91 H 04/29/21 07:35 36.9 C 93 H 18 133/88 95
[2021-04-30] MEDS: LEVOTHYROXINE SODIUM 150 MCG TABLET PO SCH (05:39)
[2021-04-30] MEDS: GABAPENTIN 400 MG CAP PO SCH ×2 (08:37→13:37)
[2021-04-30] MEDS: MAGNESIUM OXIDE 400 MG TAB PO SCH (08:37)
[2021-04-30] MEDS: NICOTINE 21 MG/24 HR TDSY TD SCH (08:38)
[2021-04-30] MEDS: HEPARIN SOD 5,000 UNIT/0.5 ML VIAL SQ SCH (08:38)
[2021-04-30] MEDS: PANTOprazole 40 MG TAB PO SCH (08:38)
[2021-04-30] MEDS: POLYETHYLENE (MIRALAX) 17 GM PACK PO SCH (08:39)
[2021-04-30] MEDS: SPIRONOLACTONE 25 MG TAB PO SCH (08:39)
[2021-04-30] MEDS: CYANOCOBALAMIN (B-12) 500 MCG TABLET PO SCH (08:42)
[2021-04-30] MEDS: GABAPENTIN 800 MG TAB PO SCH ×2 (08:42→13:37)
[2021-04-30] MEDS: FUROSEMIDE 20 MG TAB PO SCH (08:43)
[2021-04-30] MEDS: FOLIC ACID 1 MG TAB PO SCH (08:43)
[2021-04-30] MEDS: buPROPion XL 150 MG TABCR PO SCH (08:44)
[2021-04-30] MEDS: MoRPHine SULFATE 4 MG/ML 1 ML CARP\\VIAL IV PRN (08:55)
[2021-04-30 09:32] LABS: Hematocrit (blood only) 31.4 % (37-47); Hemoglobin 10.3 g/dL (12.0-16.0); Mean Corpuscular Hemoglobin 34.7 pg (25-34); Mean Corpuscular Hgb Conc 32.8 g/dL (32-36); Mean Corpuscular Volume 105.7 fL (80-100); Mean Platelet Volume 10.3 fL (7.4-10.4); Platelet Count 250 K/uL (130-400); RDW Coefficient of Variation 16.6 % (11.5-14.5); RDW Standard Deviation 63.4 fL (36.4-46.3); Red Blood Count 2.97 M/uL (4.2-5.4); White Blood Count 6.09 K/uL (4.8-10.8)
[2021-04-30] MEDS ORDERED: FLUCONAZOLE 100 MG TAB PO SCH (09:45)
[2021-04-30 09:57] LABS: BUN Creatinine Ratio 5.4 (10-20); Calcium 7.9 mg/dl (8.5-10.1); Creatinine Clr Calc Pharmacy 172.5 ml/min; Est GFR (African American) 139.4 ml/min; Est GFR (Non-African American) 120.3 ml/min; Magnesium 1.7 mg/dl (1.7-2.4); Phosphorus 3.1 mg/dl (2.5-4.9); Potassium 3.6 mmol/L (3.5-5.1)
--- NOTE | 2021-04-30 12:31 | Discharge Summary ---
Date of Service April 30, 2021 Admission HPI Per Admitting Provider This is a 55-year-old female who has significant past medical history of prior alcohol use, chronic back pain, depression with anxiety, hypothyroidism and newly diagnosed with cirrhosis who presents to ER secondary to referral from GI due to abdominal ascites. She has noted increased abdominal distention for several months, but most recently worsening in the past month. He further complains of generalized abdominal pain. Pain is constant, described as a burning and waxes and wanes. Nothing makes pain better or worse. She was recently seen in outpatient clinic and diagnosed with E. coli UTI. She was star ale on Augmentin and has 2 more doses of this. She was seen in GI clinic yesterday. She had an ultrasound on 04/22 which revealed cirrhosis of liver as well as mild to moderate ascites. She also had extensive lab work-up including hepatitis panel along with autoimmune serologies anemia panel. Hepatitis panel so far negative. She was referred to ED to undergo paracentesis as this was unable to be set up as outpatient. She has never had a paracentesis in the past. She did have history of alcohol use, but has been abstinent for the past 6 weeks. Approximately a year ago she was sober, and started drinking again due to back pain. She denies any recent illness, fever, chills, sweats, lightheadedness, dizziness, chest pain, cough, URI symptoms, shortness of breath, hemoptysis, hematemesis, melena or hematochezia. She is moving her bowels. Due to increased abdominal distention she has had significant decreased appetite and has been unable to eat or drink for the past week. She has had dry heaves, but no sendy vomiting. In ED she was hemodynamically stable. She was afebrile. She was found to have significant ascites on exam. Lab work notable for anemia with H&H 11.7 and 35.1, INR 1.5, sodium 129, potassium 3.3, total bilirubin 3.6, AST 104, ethyl alcohol negative. Admission Exam Per Admitting Provider Constitutional: WD/WN, appears chronically ill, vitals as above, NAD, sitting up in bed, pleasant, conversing easily Head: Normocephalic, Atraumatic Eyes: PERRL, conjunctivae normal, icteric sclerae ENMT: external ear and nose normal, oropharynx normal Neck: trachea midline, no thyromegaly normal visual inspection Respiratory: normal respiratory effort, lungs clear to auscultation, no wheeze, rales, rhonchi. Normal insp/exp effort, no accessory muscle use Cardiovascular: RRR, no murmur, no edema Vessels: no JVD or carotid bruit Chest: normal inspection of chest Abdomen:distended abd, soft, NT, normal bowel sounds, Musculoskeletal: no cyanosis or clubbing, extremities motor strength 5/5 Skin: mild jaundice, no rashes, warm and dry normal turgor Neurologic: PERRL, EOMI, accommodation nl, no face palsy, no dysarthria CN's II-XI intact bilaterally and moves all extremities Psychiatric: A+Ox3, euthymic affect : deferred Principal Diagnosis Acute decompensated cirrhosis Abdominal ascites Left belly pain, likely developing pyelonephritis [UA positive for Malissa] Discharge Exam GENERAL: Alert and oriented x3. NAD, on RA. HEENT: No pallor, no icterus. Pupils equal, round and reactive to light. Oral mucosa moist. NECK: No JVD, no neck masses. HEART: S1 and S2 heard. Regular rate and rhythm. No murmur, no gallop. RESPIRATORY SYSTEM: Normal AP diameter. No accessory muscle use. No wheezing, no crackles. ABDOMEN: Soft, bowel sounds present, nontender, + distention improving on the day of dc CENTRAL NERVOUS SYSTEM: No facial droop. Speech is clear. Obeys simple commands. Moves extremities. EXTREMITIES: No edema, no erythema seen. CVA tender - mild, no abdominal tenderness on deep palpation. Discharge Data Allergies Allergy/AdvReac Type Severity Reaction Status Date / Time Sulfa (Sulfonamide Allergy Intermediate Rash Unverified 01/12/20 10:11 Antibiotics) tramadol AdvReac Mild NAUSEA Verified 04/27/21 15:16 Consultations 04/26/21 12:20 ED Decision to Admit Stat 04/26/21 12:22 Consult Gastroenterology Routine 04/29/21 10:27 Consult Orthopedic Surgery Routine Ordered Studies 04/27/21 09:00 US paracentesis abd w/image Stat 04/28/21 17:46 CT abd pelvis wo con Routine Hospital Course (1) Abdominal ascites: (2) Decompensated hepatic cirrhosis: (3) Hyponatremia: 55-year-old female w/ past medical history of prior alcohol use (quit 6 weeks ago), chronic back pain, depression with anxiety, hypothyroidism and newly diagnosed with cirrhosis presented to ER 04/27 secondary to referral from GI due to abdominal ascites. She was managed for the following: #. Acute decompensated cirrhosis #. Abdominal ascites Sent by referral from GI due to abdominal ascites. Albumin 2.6 at admission, INR 1.5 at admission. Patient not on any anticoagulation. OP hepatic panel negative per records. Meld of 22 upon presentation. 04/27---> ultrasound-guided diagnostic and therapeutic paracentesis with aspiration of 1.5 L of ascitic fluid.---> Analysis negative for SBP, await cultures. SBP ruled out. Patient afebrile. WBC WNL. GI evaluated: Low-sodium diet, spironolactone 50 mg daily, BMP in 5 days upon discharge, referral for liver transplant evaluation with Quynh Villalta NP (f/u OP) in light of MELD 20. Continue and maintain abstinence from alcohol, patient states she recently quit drinking 6 weeks ago [employer]. Counselling done. Continue with Lasix and spironolactone upon discharge. Get your blood work BMP and magnesium level done in 5 days upon discharge. Follow-up with GI as an outpatient. Follow-up with your primary care physician. #. Left belly pain #. Likely developing early pyelonephritis x left Pt complaining of left sided belly pain, still present - mild intensity; CVA tenderness mild (no abd tenderness on deep palpation) Recent OP treatment for UTI 04/28 KUB --> concern for ileus, pt had moved 2 bowels 04/28, c/w diet as tolerated. 04/28 CTAP ruled out bowel obstruction, hydronephrosis, renal stones. 04/28 Urine culture: growing candinda On the background of CVA tenderness and urine culture growing Malissa, patient started on fluconazole 04/30 for 14 days course, follow-up with PCP as an outpatient in a week time for further evaluation and management. Get your liver function test weekly for the duration of fluconazole. Pain medications for few days upon discharge, follow-up with PCP for ongoing pain management prescription if needed. #. Bilateral femoral head avascular necrosis 04/28 CTAP positive for avascular necrosis of bilateral femoral heads without collapse Orthopedic consulted: Conservative management, follow-up with orthopedics in 6 to 12 months for repeat imaging. Sooner if she develops pain in either hip prior to that time. Patient made aware of orthopedic follow-up and bilateral femoral head avascular necrosis. #. Hyponatremia Admitting sodium level of 132, likely in setting of hypervolemia/ascites and poor p.o. intake Na around baseline. Low-sodium diet, increase protein content in the diet. #. Likely upper GI bleed - ruled out Admitting hemoglobin of 11.7 Patient reported passing black stool 04/27, Hb dropped to 9.7 on 04/27 04/28 FOBT neg, Hb stable c/w home ppi #. Hypothyroidism History of, on levothyroxine 125 MCG daily 04/26 TSH is 19.95 with FT4 of 1.46 INcreased levothyroxine dose to 150 mcg daily f/u with thyroid function test in 6 weeks. Depression with anxiety on Wellbutrin as outpt E.Coli UTI dx as outpt Status post antibiotic course which she completed 2 days into admission. DVT ppx: Heparin Dispo: Tele PCP: Shirley FULL CODE Patient being discharged home with following instruction at the point of discharge: Follow-up with your primary care physician within a week time. For your abdominal ascites, you have been started on Aldactone 50 mg daily and Lasix 20 mg daily. You will need your blood work BMP and Magnesium level done in 5 days upon discharge. Follow-up with GI for possible referral for liver transplant evaluation. For your left belly pain, your urinalysis came back positive for Malissa, as discussed at the bedside for likely pyelonephritis [developing] you have been started on fluconazole daily for 14 days course, get your liver function test done weekly for the duration of your fluconazole. If increasing pain or fever, contact your PCP or emergency immediately. For your bilateral femoral head of vascular necrosis, as discussed at the bedside you will need to follow-up with orthopedics in 6 to 12 months for repeat imaging. You may follow-up sooner if you develop pain in either hip prior to that time. Maintain low-sodium diet [ 2 g/day] as a part of your ascites/liver cirrhosis management. Since your TSH level was elevated this admission, your levothyroxine has been increased to 150 MCG daily from 125 MCG daily, follow-up with thyroid function test in 6 weeks, follow-up with your primary care physician as an outpatient for further evaluation and management. Take your medications as prescribed. Total Time Total Time Spent Total Time Spent (In Minutes): 40 Discharge Plan Discharge Items Patient Disposition: Home - Self-Care Reason For Visit: ABD PAIN/SWELLING, REF'D BY DOC Discharge Diagnosis: Acute decompensated cirrhosis Abdominal ascites Left belly pain, likely developing pyelonephritis [UA positive for Malissa] Activity: Resume your previous activity Non-emergency contact: Primary Care Provider Call non-emergency contact if: you have any medication questions, your symptoms worsen, your pain is not controlled, your pain is worsening and your temperature is above 101 Follow-up/Referrals: Cj Watson MD [Primary Care Provider] - (Date & Time 05/03/2021 10:20 AM Provider Cj Watson MD Department [facility] ) Donald White MD [Surgeon] - (as needed for bilateral hip pain) May Villalta CRNP [Nurse Practitioner] - (Date & Time 05/04/2021 1:00 PM Provider GRACE Garcia Department Gastroenterology, [facility] ) Diet: Regular and Low Sodium (2gm) Addtl Attending Provider Instructions: Follow-up with your primary care physician within a week time. For your abdominal ascites, you have been started on Aldactone 50 mg daily and Lasix 20 mg daily. You will need your blood work BMP and Magnesium level done in 5 days upon discharge. Follow-up with GI for possible referral for liver transplant evaluation. For your left belly pain, your urinalysis came back positive for Malissa, as discussed at the bedside for likely pyelonephritis [developing] you have been started on fluconazole daily for 14 days course, get your liver function test d one weekly for the duration of your fluconazole. If increasing pain or fever, contact your PCP or emergency immediately. For your bilateral femoral head of vascular necrosis, as discussed at the bedside you will need to follow-up with orthopedics in 6 to 12 months for repeat imaging. You may follow-up sooner if you develop pain in either hip prior to that time. Maintain low-sodium diet [ 2 g/day] as a part of your ascites/liver cirrhosis management. Since your TSH level was elevated this admission, your levothyroxine has been increased to 150 MCG daily from 125 MCG daily, follow-up with thyroid function test in 6 weeks, follow-up with your primary care physician as an outpatient for further evaluation and management. Take your medications as prescribed. 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 If develops hip pain then may call for an appointment. Also can call for an appointment as needed. Pending Studies at Discharge: No Stand-Alone Forms: My [facility], Smoking Cessation Medications and DC Order Prescriptions: New fluconazole 100 mg Tablet 200 mg PO QAM 13 Days Qty: 26 RF: 0 nicotine [Nicoderm CQ] 21 mg/24 hr Patch 24 Hour 21 mg transdermal DAILY 28 Days Qty: 28 RF: 0 spironolactone 25 mg Tablet 50 mg PO QAM Qty: 60 RF: 0 furosemide 20 mg Tablet 20 mg PO QAM Qty: 30 RF: 0 magnesium oxide 400 mg (241.3 mg magnesium) Tablet 400 mg PO BID Qty: 30 RF: 0 levothyroxine [Synthroid] 150 mcg Tablet 150 mcg PO DAILYBB Qty: 30 RF: 0 oxycodone-acetaminophen [Percocet] 5-325 mg tablet 1 tab PO Q8H PRN (Reason: pain) 3 Days Qty: 9 RF: 0 Continued omeprazole 20 mg capsule,delayed release(DR/EC) 20 mg PO QAM RF: 0 cyanocobalamin (vitamin B-12) [Vitamin B-12] 1,000 mcg Tablet 1,000 mcg PO QAM RF: 0 cholecalciferol (vitamin D3) [Vitamin D3] 1,000 unit Capsule 1,000 unit PO WE RF: 0 gabapentin 800 mg tablet 800 mg PO TID RF: 0 folic acid 1 mg Tablet 1 mg PO QAM Qty: 30 RF: 0 bupropion HCl 150 mg tablet extended release 24 hr 150 mg PO DAILY RF: 0 gabapentin 400 mg capsule 400 mg PO TID RF: 0 Discontinued levothyroxine 125 mcg tablet 125 mcg PO DAILY RF: 0 amoxicillin-pot clavulanate 875-125 mg tablet 875 tab PO BID RF: 0 Discharge Orders: Discharge Order (Routine); Ordered 04/30/21 Ordered By: Eloy Pleitez Admission Data Admit Date/Time: 04/26/21 12:35 Attending Provider: Eloy Pleitez Admit Provider: Mayra Rodriguez Primary Care Provider: Rozick,Cj S. Other Providers: Talib Larkin ; Mayra Rodriguez ; Donald White
== END 2021-04-30 14:35 | disposition home or self-care (01) | DRG 433 ==
LOC: ED 09:37 → SUATTDRO 12:35 → EDINP 12:35 → 2W 17:40 → 2N 04-30 11:42

== ENCOUNTER 2022-05-30 11:07 | Observation (INO) ==
[2022-05-30] MEDS ORDERED: SODIUM CHLORIDE 0.9% 250 ML IV PRN (12:01)
[2022-05-30] MEDS ORDERED: PANTOPRAZOLE BOLUS/DRIP 1 EACH IV STA (12:30)
[2022-05-30] MEDS ORDERED: PANTOprazole 80 MG in DEXTROSE 5% 100 ML IV ONE (12:30)
[2022-05-30 12:33] LABS: Basophils # (auto) 0.04 K/uL (0-0.2); Basophils % (auto) 1.5 %; Eosinophils # (auto) 0.07 K/uL (0-0.50); Eosinophils % (auto) 2.7 %; Hematocrit (blood only) 25.1 % (37.0-47.0); Hemoglobin 7.3 g/dl (12.0-16.0); Lymphocytes # (auto) 0.96 K/uL (1.2-3.4); Lymphocytes % (auto) 36.5 %; Mean Corpuscular Hemoglobin 21.3 pg (25.0-34.0); Mean Corpuscular Hgb Conc 29.1 g/dL (32.0-36.0); Mean Corpuscular Volume 73.2 fL (80.0-100.0); Mean Platelet Volume 9.5 fL (9.4-12.4); Monocytes # (auto) 0.25 K/uL (0.11-0.59); Monocytes % (auto) 9.5 %; Neutrophils # (auto) 1.31 K/uL (1.40-6.50); Neutrophils % (auto) 49.8 %; Platelet Count 176 K/uL (130-400); RDW Coefficient of Variation 19.6 % (11.5-14.5); RDW Standard Deviation 51.6 fL (36.4-46.3); Red Blood Count 3.43 M/uL (4.20-5.40); White Blood Count 2.63 K/ul (4.8-10.8)
[2022-05-30] MEDS ORDERED: cefTRIAXone SODIUM 2,000 MG/70 ML BAG IV STA (12:34)
[2022-05-30] MEDS ORDERED: OCTREOTIDE BOLUS FROM BAG IV ONE (12:34)
[2022-05-30 12:43] LABS: Albumin Globulin Ratio 0.9 (0.9-2); BUN Creatinine Ratio 9.5 (10-20); Bilirubin,Total 0.6 mg/dl (0.2-1.0); Calcium 8.7 mg/dl (8.6-10.3); Creatinine Clr Calc Pharmacy 76.4 ml/min; Est GFR (Non-African American) 90.6 ml/min; Globulin 4.6 gm/dl (2.5-4.0); Potassium 3.2 mmol/L (3.5-5.1); Total Protein 8.6 gm/dl (6.0-8.3)
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
[2022-05-30] MEDS ORDERED: PANTOprazole 40 MG in DEXTROSE 5% 100 ML IV SCH (12:45)
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
[2022-05-30] MEDS ORDERED: OCTREOTIDE ACETATE IV ONE (13:00)
[2022-05-30 13:08] LABS: Anisocytosis Present; Hypochromasia Present
[2022-05-30] MEDS: POTASSIUM CHLORIDE / WTR 10 MEQ/100 ML PLCT IV SCH ×3 (15:19→18:34)
[2022-05-30] MEDS ORDERED: LORazepam 2 MG/1 ML VIAL IV PRN (15:20)
[2022-05-30] MEDS ORDERED: ONDANSETRON INJ 2 MG/ML 2 ML VIAL IV PRN (15:20)
[2022-05-30] MEDS ORDERED: FUROSEMIDE 40 MG/4 ML VIAL IV ONE (15:20)
[2022-05-30] MEDS ORDERED: ACETAMINOPHEN 325 MG TAB PO PRN (15:20)
[2022-05-30] MEDS ORDERED: GABAPENTIN 600 MG TAB PO ONE (17:40)
[2022-05-30 18:24] LABS: Hematocrit (blood only) 28.8 % (37.0-47.0); Hemoglobin 8.6 g/dl (12.0-16.0)
[2022-05-30] MEDS ORDERED: POTASSIUM CHLORIDE 10 MEQ / 100ML WTR IV ONE (18:33)
[2022-05-30 19:13] LABS: Appearance Urine Clear (Clear); Bacteria Urine Automated Negative (Negative); Bilirubin Urine Negative (Negative); Blood Urine Negative (Negative); Cast Urine Automated 0 /lpf (0-5); Color Urine Yellow; Epithelial Cell Urine Auto 20-30 /lpf (0-5); Glucose Urine UA Negative (Negative); Ketones Urine Negative (Negative); Leukocyte Esterase Urine Trace (Negative); Nitrite Urine Negative (Negative); Protein Urine Negative (Negative); RBC Urine Automated 0-4 /hpf (0-4); Specific Gravity Urine 1.009 (1.000-1.030); Urobilinogen Urine Negative (Negative)
[2022-05-30] MEDS ORDERED: GABAPENTIN 800 MG TAB PO SCH (21:00)
[2022-05-30] MEDS ORDERED: GABAPENTIN 400 MG CAP PO SCH (21:00)
[2022-05-30] MEDS: PANTOprazole 40 MG in DEXTROSE 5% 100 ML IV SCH (21:46)
[2022-05-30] MEDS: OCTREOTIDE ACETATE 500mcg / D5W 100mL @50mcg/hr IV SCH (21:46)
[2022-05-30] MEDS: GABAPENTIN 400 MG CAP PO SCH (22:31)
[2022-05-30] MEDS: GABAPENTIN 800 MG TAB PO SCH (22:32)
[2022-05-31] MEDS: PANTOprazole 40 MG in DEXTROSE 5% 100 ML IV SCH ×4 (02:40→21:39)
[2022-05-31] MEDS ORDERED: MELATONIN 3 MG TAB PO ONE (02:52)
[2022-05-31] MEDS: MELATONIN 3 MG TAB PO PRN ×2 (02:53→20:24)
[2022-05-31] MEDS: OCTREOTIDE ACETATE 500mcg / D5W 100mL @50mcg/hr IV SCH ×2 (06:06→16:22)
[2022-05-31] MEDS: LEVOTHYROXINE SODIUM 150 MCG TABLET PO SCH (06:06)
[2022-05-31 06:09] LABS: Hematocrit (blood only) 28.4 % (37.0-47.0); Hemoglobin 8.4 g/dl (12.0-16.0); Mean Corpuscular Hgb Conc 29.6 g/dL (32.0-36.0); Mean Corpuscular Volume 74.3 fL (80.0-100.0); Mean Platelet Volume 9.6 fL (9.4-12.4); Platelet Count 150 K/uL (130-400); RDW Coefficient of Variation 19.2 % (11.5-14.5); RDW Standard Deviation 51.4 fL (36.4-46.3); Red Blood Count 3.82 M/uL (4.20-5.40); White Blood Count 2.83 K/ul (4.8-10.8)
[2022-05-31 06:35] LABS: Albumin Globulin Ratio 0.8 (0.9-2); Albumin Level 3.7 gm/dl (3.4-5.0); BUN Creatinine Ratio 8.6 (10-20); Bilirubin,Total 1.2 mg/dl (0.2-1.0); Calcium 8.6 mg/dl (8.6-10.3); Creatinine Clr Calc Pharmacy 80.8 ml/min; Est GFR (African American) 112.3 ml/min; Est GFR (Non-African American) 96.9 ml/min; Globulin 4.5 gm/dl (2.5-4.0); Potassium 3.5 mmol/L (3.5-5.1); Total Protein 8.2 gm/dl (6.0-8.3)
[2022-05-31] MEDS: cefTRIAXone SODIUM 2,000 MG in DEXTROSE 5% 50 ML IV SCH (08:05)
[2022-05-31] MEDS: buPROPion XL 150 MG TABCR PO SCH (08:10)
[2022-05-31] MEDS: GABAPENTIN 400 MG CAP PO SCH ×3 (08:10→20:58)
[2022-05-31] MEDS: FOLIC ACID 1 MG TAB PO SCH (08:11)
[2022-05-31] MEDS: NIFEdipine 10 MG CAP PO SCH (08:11)
[2022-05-31] MEDS: GABAPENTIN 800 MG TAB PO SCH ×3 (08:11→20:21)
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
--- NOTE | 2022-05-31 10:00 | History & Physical Bridge Note ---
Date of Service May 31, 2022 History & Physical Bridge Note I have examined the patient, reviewed the History & Physical and in the interval since the performance of the History & Physical I have noted the following changes of clinical significance: no changes noted EGD today Patient was explained in detail regarding risks, benefits, limitations and alternatives of the above endoscopic procedure. Risks of intravenous sedation used for procedure were also explained. Risks include, but not limited to perfor ation, bleeding, infection, respiratory distress, cardiac arrest and . Patient is also aware about the possibility of missed lesion. Patient's questions were answered. The patient verbalized understanding the information and agreed to undergo the procedure.
[2022-05-31] MEDS ORDERED: LIDOCAINE 2% MPF LOCAL 5 ML VIAL ONE (10:10)
[2022-05-31] MEDS ORDERED: PROPOFOL IV EMULSION 10 MG/ML 20 ML VIAL IV ONE ×2 (10:10→10:59)
[2022-05-31] MEDS ORDERED: PHENYLEPHRINE 100MCG/ML 5ML SYR ONE (11:00)
--- NOTE | 2022-05-31 11:05 | GI REPORT ---
Patient Name: Anh Toribio Procedure Date: 05/31/2022 10:21 AM Date of : 1965 Admit Type: Inpatient Age: 56 Gender: Female Attending MD: Paola Marin MD, Procedure: Upper GI endoscopy Providers: Paola Marin MD Referring MD: Delroy Sales Md Indications: Cirrhosis rule out esophageal varices, Anemia Medicines: Propofol per Anesthesia Complications: No immediate complications. Estimated Blood Loss: Estimated blood loss: none. Procedure: Pre-Anesthesia Assessment: - Prior to the procedure, a History and Physical was performed, and patient medications, allergies and sensitivities were reviewed. The patient's tolerance of previous anesthesia was reviewed. - The risks and benefits of the procedure and the sedation options and risks were discussed with the patient. All questions were answered and informed consent was obtained. - Patient identification and proposed procedure were verified prior to the procedure by the physician and the nurse. The procedure was verified in the procedure room. - Pre-procedure physical examination revealed no contraindications to sedation. After obtaining informed consent, the endoscope was passed under direct vision. Throughout the procedure, the patient's blood pressure, pulse, and oxygen saturations were monitored continuously. The Endoscope was introduced through the mouth, and advanced to the second part of duodenum. The upper GI endoscopy was accomplished without difficulty. The patient tolerated the procedure well. Findings: The Z-line was regular and was found 40 cm from the incisors. One column of large (> 5 mm) varices with no bleeding and no stigmata of recent bleeding were found in the lower third of the esophagus. Red federico signs were present. One band was successfully placed with complete eradication, resulting in deflation of varices. There was no bleeding during the procedure. Mild portal hypertensive gastropathy was found in the stomach. The duodenal bulb and second portion of the duodenum were normal. Impression: - Large (> 5 mm) esophageal varices with red federico sign. Banded. - Portal hypertensive gastropathy. - Normal duodenal bulb and second portion of the duodenum. - No specimens collected. Recommendation: - [facility]. - Clear liquid diet for 1 day, then advance as tolerated to full liquid diet for 1 day then soft diet for 2 days. - Use a proton pump inhibitor PO BID for 3 months. - Use sucralfate suspension 1 gram PO BID for 2 weeks. - Repeat upper endoscopy in 3 months for surveillance. Paola Marin MD 05/31/2022 11:04:43 AM This report has been signed electronically. Note Initiated On: 05/31/2022 10:21 AM Number of Addenda: 0 I attest to the content of the Intraoperative Record and orders documented therein, exceptions below {[id number]}
--- NOTE | 2022-05-31 12:00 | Anesthesiology Progress Note ---
Date of Service May 31, 2022 Anesthesia Post Procedure Vital Signs Vital Signs: Temp Pulse Pulse Resp BP BP Pulse Ox 05/31/22 11:35 77 18 102/67 95 05/31/22 11:20 68 18 95/64 L 95 05/31/22 11:05 71 16 93/60 L 97 05/31/22 09:32 36.4 C L 88 16 92/57 L 93 05/31/22 08:00 80 05/31/22 07:30 36.8 C 85 14 120/83 96 05/31/22 03:20 36.8 C 73 20 124/79 95 05/31/22 00:00 83 05/30/22 23:00 37 C 84 18 120/73 95 05/30/22 19:13 37.1 C 77 15 134/86 97 05/30/22 18:36 79 18 141/86 H 96 05/30/22 18:18 83 18 139/72 96 05/30/22 17:46 89 18 127/82 05/30/22 16:15 37.1 C 82 20 126/91 96 05/30/22 16:06 05/30/22 16:00 37.1 C 78 16 133/76 97 05/30/22 15:15 96 05/30/22 15:13 36.8 C 84 16 125/80 96 05/30/22 14:43 36.8 C 83 24 125/77 96 05/30/22 13:02 85 05/30/22 14:28 37.3 C 78 21 122/78 95 05/30/22 14:13 37.1 C 85 16 121/76 91 Pulse Ox O2 Del Method O2 Del Method 05/31/22 11:35 Room Air 05/31/22 11:20 Room Air 05/31/22 11:05 Room Air 05/31/22 09:32 Room Air 05/31/22 08:00 05/31/22 07:30 Room Air 05/31/22 03:20 Room Air 05/31/22 00:00 05/30/22 23:00 Room Air 05/30/22 19:13 Room Air 05/30/22 18:36 Room Air 05/30/22 18:18 Room Air 05/30/22 17:46 Room Air 05/30/22 16:15 05/30/22 16:06 96 Room Air 05/30/22 16:00 05/30/22 15:15 Room Air 05/30/22 15:13 05/30/22 14:43 05/30/22 13:02 05/30/22 14:28 05/30/22 14:13 Pain Intensity Left Flank: Pain Intensity: 7 Transfer of Care Handoff Completed per policy Notes Mental Status: alert / awake / arousable and participated in evaluation Patient Amnestic to Procedure: Yes Nausea / Vomiting: adequately controlled Pain: adequately controlled Airway Patency, RR, SpO2: stable & adequate BP & HR: stable & adequate Hydration State: stable & adequate Anesthetic Complications: no major complications apparent and Pt Satisfied with anesthetic care
--- NOTE | 2022-05-31 14:36 | XRay Report ---
XR ribs LT min 2V w CXR1V CLINICAL HISTORY: Left-sided rib pain. COMPARISON STUDY: Chest 06/02/2019. FINDINGS: No acute left-sided rib fractures. No pneumothorax. The lungs are clear. The heart is libia l in size. Mild S-shaped scoliosis of the thoracolumbar spine is again noted. IMPRESSION: No acute rib fractures. No pneumothorax. ACT 112: Negative or not required by law. Electronically signed by: Sadiq Hoffmann M.D. 05/31/2022 2:35 PM
--- NOTE | 2022-05-31 16:19 | Hospitalist Progress Note ---
Date of Service May 31, 2022 Assessment & Plan (1) Acute GI bleeding: (2) Anemia: (3) Alcoholic cirrhosis of liver: (4) Left sided abdominal pain: (5) Hypokalemia: (6) Alcohol withdrawal: (7) Chronic back pain: (8) Hypothyroidism: (9) Depression: Plan Patient is a 56 yr female with H/O Alcohol abuse with cirrhosis diagnosed last year, chronic back pain, depression with anxiety, hypothyroidism and other medical problems listed below who presents with abnormal bleeding and bright red blood per rectum for the past 4 days. Acute upper GI bleed/hematochezia Symptomatic anemia Alcoholic cirrhosis with ascites GI bleed Esophageal varices S/P banding --EGD:Large (> 5 mm) esophageal varices with red federico sign. Banded.Portal hypertensive gastropathy. Normal duodenal bulb and second portion of the duodenum. No specimens collected. --S/P 1 unit PRBCs Appreciate GI input Monitor H&H and transfuse as needed Continue Protonix, octreotide drip Clear liquid diet today Plan to continue PPI twice daily for 3 months Plan to start on Carafate tomorrow for 2 weeks duration Needs repeat upper endoscopy in 3 months Alcohol use disorder Relapsed in past few weeks Continue gabapentin per protocol Monitor for withdrawal Continue thiamine, folic acid Counseled to quit drinking Left Rib Pain X ray:No acute rib fractures. No pneumothorax. Incentive Spirometry Hypothyroidism Continue levothyroxine Chronic hypomagnesemia Continue magnesium supplement Chronic hyponatremia Secondary to alcohol use disorder Monitor sodium level Hypokalemia Replete electrolytes as needed monitor Hypothyroidism Continue levothyroxine Depression with anxiety Continue Wellbutrin DVT Px: SCD given GI bleed CODE STATUS Full code Admission and Anticipated Discharge Date Admission Date: May 30, 2022 Subjective Patient is seen and examined at bedside Had EGD earlier today Denies any bleeding issues overnight or this morning Reports having left sided rib pain Denies any dyspnea, dizziness, nausea, abdominal pain No other complaints Review of Systems Review of Systems: All systems reviewed & are unremarkable except as noted in Subjective Physical Exam Physical Exam: Physical Exam: Vitals signs as noted above General Appearance:Moderately built and nourished, no apparent distress Head: normocephalic, Atraumatic Eyes: normal inspection, EOMI Neck: supple, Trachea midline Respiratory/Chest: Normal breath sounds, CTA, L rib tender, No accessory muscle use Cardiovascular: S1, S2, No murmur Abdomen/GI:Soft, Non tender, protuberant, Bowel sounds present Extremities/Musculoskeletal:normal inspection, no edema Neurologic/Psych:AAOX3, grossly no focal neurological deficits Skin: normal color, warm Results & Data Results & Data Vital Signs (Past 12 Hours) Vital Signs Temp Pulse Pulse Resp BP BP Pulse Ox 05/31/22 16:00 71 05/31/22 12:30 79 13 113/77 05/31/22 12:15 76 21 114/66 05/31/22 11:49 78 18 108/70 05/31/22 11:49 82 16 108/70 05/31/22 11:49 36.8 C 05/31/22 11:35 77 18 102/67 95 05/31/22 11:20 68 18 95/64 L 95 05/31/22 11:05 71 16 93/60 L 97 05/31/22 09:32 36.4 C L 88 16 92/57 L 93 05/31/22 08:00 80 05/31/22 07:30 36.8 C 85 14 120/83 96 O2 Del Method 05/31/22 16:00 05/31/22 12:30 05/31/22 12:15 05/31/22 11:49 05/31/22 11:49 05/31/22 11:49 05/31/22 11:35 Room Air 05/31/22 11:20 Room Air 05/31/22 11:05 Room Air 05/31/22 09:32 Room Air 05/31/22 08:00 05/31/22 07:30 Room Air Laboratory Results Short CBC 05/30/22 05/31/22 Range/Units 18:04 05:30 WBC 2.83 L (4.8-10.8) K/ul Hgb 8.6 L 8.4 L (12.0-16.0) g/dl Hct 28.8 L 28.4 L (37.0-47.0) % Plt Count 150 (130-400) K/uL BMP 05/31/22 05:30 Sodium 130 L Potassium 3.5 Chloride 96 L Carbon Dioxide 26 BUN 6 Creatinine 0.70 Glucose 119 H Calcium 8.6 Liver Function 05/31/22 Range/Units 05:30 Total Bilirubin 1.2 H D (0.2-1.0) mg/dl AST 51 H (13-39) U/L ALT 18 (7-52) U/L Alkaline Phosphatase 126 H (34-104) U/L Albumin 3.7 (3.4-5.0) gm/dl Urine 05/30/22 Range/Units 17:47 Urine Color Yellow Urine Appearance Clear (Clear) Urine pH 7.0 (4.5-7.5) Ur Specific [place] 1.009 (1.000-1.030) Urine Protein Negative (Negative) Urine Glucose (UA) Negative (Negative) (6) Alcohol withdrawal Complication of substance-induced condition: with unspecified complication Qualified Code(s): F10.239 - Alcohol dependence with withdrawal, unspecified (7) Chronic back pain Back pain location: low back pain Back pain laterality: left Sciatica presence: without sciatica Qualified Code(s): M54.5 - Low back pain; G89.29 - Other chronic pain (8) Hypothyroidism Hypothyroidism type: unspecified Qualified Code(s): E03.9 - Hypothyroidism, unspecified
[2022-05-31] MEDS: MAGNESIUM OXIDE 400 MG TAB PO SCH (20:23)
[2022-06-01] MEDS: PANTOprazole 40 MG in DEXTROSE 5% 100 ML IV SCH ×4 (02:46→15:54)
[2022-06-01] MEDS: OCTREOTIDE ACETATE 500mcg / D5W 100mL @50mcg/hr IV SCH (02:46)
[2022-06-01 04:41] LABS: Hematocrit (blood only) 28.2 % (37.0-47.0); Hemoglobin 8.2 g/dl (12.0-16.0)
[2022-06-01 05:03] LABS: Albumin Level 3.5 gm/dl (3.4-5.0); BUN Creatinine Ratio 7.7 (10-20); Bilirubin Direct 0.3 mg/dl (0-0.2); Bilirubin,Total 1.1 mg/dl (0.2-1.0); Calcium 8.7 mg/dl (8.6-10.3); Est GFR (Non-African American) 99.2 ml/min; Magnesium 2.1 mg/dl (1.7-2.4); Potassium 3.6 mmol/L (3.5-5.1); Total Protein 7.9 gm/dl (6.0-8.3)
[2022-06-01] MEDS: LEVOTHYROXINE SODIUM 150 MCG TABLET PO SCH (06:09)
[2022-06-01] MEDS: CYANOCOBALAMIN (B-12) 500 MCG TABLET PO SCH (08:26)
[2022-06-01] MEDS: cefTRIAXone SODIUM 2,000 MG in DEXTROSE 5% 50 ML IV SCH (08:26)
[2022-06-01] MEDS: buPROPion XL 150 MG TABCR PO SCH (08:27)
[2022-06-01] MEDS: GABAPENTIN 400 MG CAP PO SCH ×3 (08:27→20:20)
[2022-06-01] MEDS: GABAPENTIN 800 MG TAB PO SCH ×3 (08:27→20:21)
[2022-06-01] MEDS: NIFEdipine 10 MG CAP PO SCH (08:28)
[2022-06-01] MEDS: MAGNESIUM OXIDE 400 MG TAB PO SCH ×2 (08:30→21:27)
[2022-06-01] MEDS: SUCRALFATE 1 GM/10 ML UDC PO SCH ×2 (09:53→20:19)
[2022-06-01] MEDS: FOLIC ACID 1 MG TAB PO SCH (10:48)
--- NOTE | 2022-06-01 13:23 | Gastroenterology Progress Note ---
Date of Service June 01, 2022 Assessment & Plan Admission and Anticipated Discharge Date Admission Date: May 30, 2022 Subjective patient was seen and examined, doing well, denies any pain ro vomiting, H/H stable. Advance to full liquids. Stop drips and ABx, start PO PPI. Recall GI if needed. Results & Data Vital Signs (Past 12 Hours) Vital Signs Temp Pulse Resp BP Pulse Ox O2 Del Method 06/01/22 11:03 36.5 C 75 18 101/70 97 Room Air 06/01/22 09:03 36.8 C 77 20 125/85 99 Room Air 06/01/22 04:00 36.9 C 77 14 118/75 94 Room Air
--- NOTE | 2022-06-01 15:59 | Hospitalist Progress Note ---
Date of Service June 01, 2022 Assessment & Plan (1) Acute GI bleeding: (2) Anemia: (3) Alcoholic cirrhosis of liver: (4) Left sided abdominal pain: (5) Hypokalemia: (6) Alcohol withdrawal: (7) Chronic back pain: (8) Hypothyroidism: (9) Depression: Plan Patient is a 56 yr female with H/O Alcohol abuse with cirrhosis diagnosed last year, chronic back pain, depression with anxiety, hypothyroidism and other medical problems listed below who presents with abnormal bleeding and bright red blood per rectum for the past 4 days. Acute upper GI bleed/hematochezia Symptomatic anemia Alcoholic cirrhosis with ascites GI bleed Esophageal varices S/P banding --EGD:Large (> 5 mm) esophageal varices with red federico sign. Banded.Portal hypertensive gastropathy. Normal duodenal bulb and second portion of the duodenum. No specimens collected. --S/P 1 unit PRBCs Appreciate GI input Monitor H&H and transfuse as needed IV Protonix, octreotide drip discontinued Started on Protonix 40 mg twice a day--plan to continue twice daily for 3 months Started on Carafate today--needs 2-week course Needs repeat upper endoscopy in 3 months Advance to full liquid diet today GI following Hemoglobin stable Alcohol use disorder Relapsed in past few weeks Continue gabapentin per protocol Monitor for withdrawal Continue thiamine, folic acid Counseled to quit drinking Left Rib Pain X ray:No acute rib fractures. No pneumothorax. Incentive Spirometry Hypothyroidism Continue levothyroxine Chronic hypomagnesemia Continue magnesium supplement Chronic hyponatremia Secondary to alcohol use disorder Monitor sodium level Hypokalemia Replete electrolytes as needed monitor Hypothyroidism Continue levothyroxine Depression with anxiety Continue Wellbutrin DVT Px: SCDs Re: GI bleed CODE STATUS Full code Admission and Anticipated Discharge Date Admission Date: May 30, 2022 Subjective Patient is seen and examined at bedside Denies any recurrence of bleeding Tolerating diet Left-sided rib pain improved Denies any chest pain, dyspnea, dizziness, nausea No other complaints Review of Systems Review of Systems: All systems reviewed & are unremarkable except as noted in Subjective Physical Exam Physical Exam: Physical Exam: Vitals signs as noted above General Appearance:Moderately built and nourished, no apparent distress Head: normocephalic, Atraumatic Eyes: normal inspection, EOMI Neck: supple, Trachea midline Respiratory/Chest: Normal breath sounds, CTA, L rib mild tender, No accessory muscle use Cardiovascular: S1, S2, No murmur Abdomen/GI:Soft, Non tender, protuberant, Bowel sounds present Extremities/Musculoskeletal:normal inspection, no edema Neurologic/Psych:AAOX3, grossly no focal neurological deficits Skin: normal color, warm Results & Data Results & Data Vital Signs (Past 12 Hours) Vital Signs Temp Pulse Resp BP Pulse Ox O2 Del Method 06/01/22 11:03 36.5 C 75 18 101/70 97 Room Air 06/01/22 09:03 36.8 C 77 20 125/85 99 Room Air 06/01/22 04:00 36.9 C 77 14 118/75 94 Room Air Laboratory Results Short CBC 06/01/22 Range/Units 04:24 Hgb 8.2 L (12.0-16.0) g/dl Hct 28.2 L (37.0-47.0) % BMP 06/01/22 04:24 Sodium 132 L Potassium 3.6 Chloride 100 Carbon Dioxide 25 BUN 5 L Creatinine 0.65 Glucose 118 H Calcium 8.7 Liver Function 06/01/22 Range/Units 04:24 Total Bilirubin 1.1 H (0.2-1.0) mg/dl Direct Bilirubin 0.3 H (0-0.2) mg/dl AST 48 H (13-39) U/L ALT 15 (7-52) U/L Alkaline Phosphatase 111 H (34-104) U/L Albumin 3.5 (3.4-5.0) gm/dl (6) Alcohol withdrawal Complication of substance-induced condition: with unspecified complication Qualified Code(s): F10.239 - Alcohol dependence with withdrawal, unspecified (7) Chronic back pain Back pain location: low back pain Back pain laterality: left Sciatica presence: without sciatica Qualified Code(s): M54.5 - Low back pain; G89.29 - Other chronic pain (8) Hypothyroidism Hypothyroidism type: unspecified Qualified Code(s): E03.9 - Hypothyroidism, unspecified
[2022-06-01] MEDS ORDERED: MoRPHine SULFATE 2 MG/ML CARP IV STA (20:09)
[2022-06-01] MEDS: PANTOprazole 40 MG TAB PO SCH (20:21)
[2022-06-01] MEDS: MELATONIN 3 MG TAB PO PRN (21:27)
[2022-06-02] MEDS: LEVOTHYROXINE SODIUM 150 MCG TABLET PO SCH (05:54)
[2022-06-02 06:40] LABS: Hematocrit (blood only) 28.8 % (37.0-47.0); Hemoglobin 8.5 g/dl (12.0-16.0); Mean Corpuscular Hemoglobin 22.4 pg (25.0-34.0); Mean Corpuscular Hgb Conc 29.5 g/dL (32.0-36.0); Mean Corpuscular Volume 75.8 fL (80.0-100.0); Mean Platelet Volume 9.5 fL (9.4-12.4); Platelet Count 156 K/uL (130-400); RDW Coefficient of Variation 19.9 % (11.5-14.5); White Blood Count 3.19 K/ul (4.8-10.8)
[2022-06-02 06:52] LABS: Albumin Level 3.6 gm/dl (3.4-5.0); BUN Creatinine Ratio 7.6 (10-20); Bilirubin Direct 0.3 mg/dl (0-0.2); Bilirubin,Total 0.9 mg/dl (0.2-1.0); Calcium 8.6 mg/dl (8.6-10.3); Creatinine Clr Calc Pharmacy 85.6 ml/min; Est GFR (African American) 114.5 ml/min; Est GFR (Non-African American) 98.8 ml/min; Magnesium 2.1 mg/dl (1.7-2.4); Potassium 3.6 mmol/L (3.5-5.1)
--- NOTE | 2022-06-02 08:09 | Hospitalist Progress Note ---
Date of Service June 02, 2022 Assessment & Plan (1) Acute GI bleeding: (2) Anemia: (3) Alcoholic cirrhosis of liver: (4) Left sided abdominal pain: (5) Hypokalemia: (6) Alcohol withdrawal: (7) Chronic back pain: (8) Hypothyroidism: (9) Depression: Plan Patient is a 56 yr female with H/O Alcohol abuse with cirrhosis diagnosed last year, chronic back pain, depression with anxiety, hypothyroidism and other medical problems listed below who presents with abnormal bleeding and bright red blood per rectum for 4 days prior to arrival started on ceftriaxone and PPI drip as this is a GI bleed in an alcoholic cirrhotic with ascites. s/p 1 unit of pRBCs on 05/30 for symptomatic anemia. GI consulted and performed EGD --EGD:Large (> 5 mm) esophageal varices with red federico sign. Banded.Portal hypertensive gastropathy. Normal duodenal bulb and second portion of the duodenum. No specimens collected. banding of varices performed. IV Protonix, octreotide drip discontinued Started on Protonix 40 mg twice a day--plan to continue twice daily for 3 months Started on Carafate --needs 2-week course Needs repeat upper endoscopy in 3 months Tolerating full liquids, advanced to soft diet. H/H low but stable. Consider repeat CBC by PCP in 1 week followup. Alcohol use disorder Relapsed in past few weeks Continue gabapentin per protocol Monitor for withdrawal Continue thiamine, folic acid Counseled to quit drinking She is interested in vivitrol injections and will discuss this with PCP on followup. Left Rib Pain X ray:No acute rib fractures. No pneumothorax. Incentive Spirometry US with doppler of liver; PVT also ruled out. This pain is chronic and continued evaluation and workup with PCP recommended. Hypothyroidism chronic, stable. Continue levothyroxine Chronic hypomagnesemia Continue magnesium supplement chronically, and encourage her to stop drinking which is the likely etiiology. Chronic hyponatremia Secondary to alcohol use disorder Monitor sodium level Hypokalemia Replete electrolytes as needed monitor Depression with anxiety chronic, stable. Continue Wellbutrin Encourage outpatient counseling/therapy for addiction/depression DVT Px: SCDs Re: GI bleed CODE STATUS Full code Wendy Lopez DO [facility] Hospitalist Admission and Anticipated Discharge Date Admission Date: May 30, 2022 Subjective 56 yo F presents with acute blood loss anemia 2/2 upper GI bleeding Doing well and tolerating PO for few days now Afebrile, no nausea chronic pain in LUQ and posterior left flank that is chronic Pain is persistent and worse with certain positions. Liver US wtih doppler ordered today and ruled out PVT Review of Systems Review of Systems: All systems were reviewed and negative except as indicated on HPI Physical Exam Physical Exam: CONSTITUTIONAL: WNWD, vitals as above, generally well-appearing, NAD EYES: normal conjunctivae, no scleral icterus, ENT: external ear and nose normal, NECK: trachea midline RESPIRATORY: clear to auscultation bilaterally, no crackles, rales or wheezes, normal respiratory effort CARDIOVASCULAR: regular rate and rhythm, S1 and 2 heard without murmurs, gallops or rubs, no JVD, no peripheral edema CHEST: inspection of chest was normal GASTROINTESTINAL: soft, nontender, ND, no guarding, no CVA tenderness MUSCULOSKELETAL: strength 5/5 throughout, head is normocephalic and atraumatic SKIN: warm and dry NEUROLOGIC: CN 2-12 grossly intact, no sensory deficit, normal cognition, normal speech, no tremor PSYCHIATRIC: alert cooperative and oriented to person, place and time. Euthymic mood, makes good eye contact, language grossly intact, recent and remote memory grossly intact. Results & Data Results & Data Vital Signs (Past 12 Hours) Vital Signs Temp Pulse Pulse Resp BP Pulse Ox O2 Del Method 06/02/22 03:42 37.0 C 69 19 120/76 98 Room Air 06/01/22 22:28 73 06/01/22 22:27 36.8 C 69 18 141/89 H 97 Room Air Laboratory Results Short CBC 06/02/22 Range/Units 06:16 WBC 3.19 L (4.8-10.8) K/ul Hgb 8.5 L (12.0-16.0) g/dl Hct 28.8 L (37.0-47.0) % Plt Count 156 (130-400) K/uL BMP 06/02/22 06:16 Sodium 132 L Potassium 3.6 Chloride 101 Carbon Dioxide 25 BUN 5 L Creatinine 0.66 Glucose 108 H Calcium 8.6 Liver Function 06/02/22 Range/Units 06:16 Total Bilirubin 0.9 (0.2-1.0) mg/dl Direct Bilirubin 0.3 H (0-0.2) mg/dl AST 36 (13-39) U/L ALT 13 (7-52) U/L Alkaline Phosphatase 103 (34-104) U/L Albumin 3.6 (3.4-5.0) gm/dl Medications Administered Current Inpatient Medications Acetaminophen (Acetaminophen 325 Mg Tab) 650 mg PO Q4H PRN PRN Reason: Pain or Fever Stop: 06/29/22 15:19 Bupropion HCl (Bupropion Xl 150 Mg Tabcr) 150 mg PO DAILY MEKA Stop: 06/30/22 08:59 Last Admin: 06/01/22 08:27 Dose: 150 mg Cyanocobalamin (Cyanocobalamin (B-12) 500 Mcg Tablet) 1,000 mcg PO QAM MEKA Stop: 07/01/22 08:59 Last Admin: 06/01/22 08:26 Dose: 1,000 mcg Folic Acid (Folic Acid 1 Mg Tab) 1 mg PO QAM MEKA Stop: 06/30/22 08:59 Last Admin: 06/01/22 10:48 Dose: 1 mg Gabapentin (Gabapentin 800 Mg Tab) 800 mg PO TID MEKA Stop: 06/30/22 00:00 Last Admin: 06/01/22 20:21 Dose: 800 mg Gabapentin (Gabapentin 400 Mg Cap) 400 mg PO TID MEKA Stop: 06/30/22 00:00 Last Admin: 06/01/22 20:20 Dose: 400 mg Levothyroxine Sodium (Levothyroxine Sodium 150 Mcg Tablet) 150 mcg PO DAILYBB MEKA Stop: 06/30/22 06:29 Last Admin: 06/02/22 05:54 Dose: 150 mcg Lorazepam (Lorazepam 2 Mg/1 Ml Vial) 1 mg IV ONE PRN; Protocol PRN Reason: EtoH Withdrawal AWSS 6,7,8,9,10 Magnesium Oxide (Magnesium Oxide 400 Mg Tab) 400 mg PO BID MEKA Stop: 06/30/22 20:59 Last Admin: 06/01/22 21:27 Dose: 400 mg Melatonin (Melatonin 3 Mg Tab) 3 mg PO HS PRN PRN Reason: Sleep Stop: 06/30/22 02:45 Last Admin: 06/01/22 21:27 Dose: 3 mg Nifedipine (Nifedipine 10 Mg Cap) 10 mg PO DAILY MEKA Stop: 06/30/22 08:59 Last Admin: 06/01/22 08:28 Dose: 10 mg Ondansetron HCl (Ondansetron Inj 2 Mg/Ml 2 Ml Vial) 4 mg IV Q6H PRN PRN Reason: Nausea Stop: 06/29/22 15:19 Pantoprazole Sodium (Pantoprazole 40 Mg Tab) 40 mg PO BID MEKA Stop: 07/01/22 20:59 Last Admin: 06/01/22 20:21 Dose: 40 mg Sucralfate (Sucralfate 1 Gm/10 Ml Udc) 1 gm PO BID [facility] Stop: 07/01/22 08:59 Last Admin: 06/01/22 20:19 Dose: 1 gm (6) Alcohol withdrawal Complication of substance-induced condition: with unspecified complication Qualified Code(s): F10.239 - Alcohol dependence with withdrawal, unspecified (7) Chronic back pain Back pain laterality: left Back pain location: low back pain Sciatica presence: without sciatica Qualified Code(s): M54.5 - Low back pain; G89.29 - Other chronic pain (8) Hypothyroidism Hypothyroidism type: unspecified Qualified Code(s): E03.9 - Hypothyroidism, unspecified
[2022-06-02] MEDS: CYANOCOBALAMIN (B-12) 500 MCG TABLET PO SCH (08:27)
[2022-06-02] MEDS: NIFEdipine 10 MG CAP PO SCH (08:27)
[2022-06-02] MEDS: SUCRALFATE 1 GM/10 ML UDC PO SCH (08:27)
[2022-06-02] MEDS: buPROPion XL 150 MG TABCR PO SCH (08:27)
[2022-06-02] MEDS: PANTOprazole 40 MG TAB PO SCH (08:27)
[2022-06-02] MEDS: GABAPENTIN 800 MG TAB PO SCH ×2 (08:27→14:57)
[2022-06-02] MEDS: FOLIC ACID 1 MG TAB PO SCH (08:27)
[2022-06-02] MEDS: GABAPENTIN 400 MG CAP PO SCH ×2 (08:28→14:56)
[2022-06-02] MEDS ORDERED: oxyCODONE HCL IR 5 MG TAB (IMMEDIATE RELEASE) PO PRN (08:36)
[2022-06-02] MEDS: MAGNESIUM OXIDE 400 MG TAB PO SCH (08:38)
--- NOTE | 2022-06-02 12:38 | Ultrasound Report ---
US duplex portal hepatic veins CLINICAL HISTORY: rule out portal vein thrombosis, pain in LUQ COMPARISON STUDY: Abdomen and pelvis CT 04/28/2021. FINDINGS: The hepatic and portal veins are patent and demonstrate normal direction of flow. Normal pe ak systolic velocity of 69 cm/s within the hepatic artery. IMPRESSION: No evidence for portal vein thrombosis. ACT 112: Negative or not required by law. Electronically signed by: Sadiq Hoffmann M.D. 06/02/2022 12:37 PM
--- NOTE | 2022-06-03 08:47 | Discharge Summary ---
Discharge Summary Date of Service June 03, 2022 Notes For Next Care Provider Desires Vivitrol injection for alcohol abuse history Medication Changes From Visit NEW-Carafate 1 gm PO BID x 2 weeks NEW-Omeprazole 40mg PO BID HOLD-nifedipine (used for Raynauds) 2/2 relative hypotension at discharge. Admission HPI Per Admitting Provider This is a 56yo F with a PMH of history of etoh abuse with cirrhosis diagnosed last year, chronic back pain, depression with anxiety, hypothyroidism and other medical problems listed below who presents with abnormal bleeding and bright red blood per rectum for the past 4 days. Follows with Anibal BRUCE and was seen yesterday for routine follow-up and underwent labs, revealing hemoglobin of 7.7 (previous hemoglobin on record of 10.7 last December). WBC stable, platelet level improved from previous. Patient was called yesterday and advised to come to ED for further work-up given worsening anemia but did not present until this morning after her dental appt. States she has had intermittent hematochezia in the setting of known internal hemorrhoids but just attributed bleeding to that. Blood has filled toilet bowl 4 times this week, most recently yesterday morning when she took her lactulose. Denies any maroon or black bowel movements. Denies any nausea, vomiting or hematemesis. Does feel fatigued easily. No lightheadedness, chest pain or palpitations. Did have profuse bleeding back in January in the setting of a dental extraction but denies any other bleeding from gums since then. Patient admits that she has started to drink alcohol again and has been having wine at night to help control left-sided abdominal and back pain. Last drink was last evening. Taking Advil PM 2x/week. Still has intermittent left-sided abdominal pain described as cramping and worse with movement. Also notes to vague central abdominal pain over the past hour since she has been present in the ED. Anxious about admission. Denies any fever, chills, lightheadedness, visual changes, chest pain, shortness of breath, dysuria. Has not taken any medications today, including Lasix, spironolactone or lactulose. Is scheduled for outpatient EGD on October 04. Admission Exam Per Admitting Provider Physical Exam: General Appearance:WD/WN, vitals as above, NAD, sitting up in bed, pleasant, anxious Head: normocephalic, atraumatic Eyes:normal inspection, PERRL, conjunctivae normal, anicteric sclerae ENT: external ear and nose normal, oropharynx normal Neck: normal visual inspection, trachea midline, no thyromegaly Respiratory:normal respiratory effort, lungs clear to auscultation, no wheeze, rales, rhonchi. No accessory muscle use Cardiovascular: regular rate, rhythm, no murmur, normal peripheral pulses, no BLE edema. Vessels: no JVD Chest: normal inspection of chest Abdomen/GI: normal bowel sounds, soft, TTP midabdomen extending to LUQ. + hepatosplenomegaly Extremities/Musculoskeletal: no cyanosis or clubbing, extremities motor stren [facility] 5/5 Neurologic: PERRL, EOMI, accommodation nl, no face palsy, no dysarthria, CN's II-XI intact bilaterally and moves all extremities Psychiatric:A+Ox3, euthymic affect Skin: no rashes, normal color, warm/dry Principal Dx & Hospital Course #1 = Principal Diagnosis (1) Acute GI bleeding: (2) Anemia: (3) Alcoholic cirrhosis of liver: (4) Left sided abdominal pain: (5) Hypokalemia: (6) Alcohol withdrawal: (7) Chronic back pain: (8) Hypothyroidism: (9) Depression: Plan Patient is a 56 yr female with H/O Alcohol abuse with cirrhosis diagnosed last year, chronic back pain, depression with anxiety, hypothyroidism and other medical problems listed below who presents with abnormal bleeding and bright red blood per rectum for 4 days prior to arrival started on ceftriaxone and PPI drip as this is a GI bleed in an alcoholic cirrhotic with ascites. s/p 1 unit of pRBCs on 05/30 for symptomatic anemia. GI consulted and performed EGD --EGD:Large (> 5 mm) esophageal varices with red federico sign. Banded.Portal hypertensive gastropathy. Normal duodenal bulb and second portion of the duodenum. No specimens collected. banding of varices performed. IV Protonix, octreotide drip discontinued Started on Protonix 40 mg twice a day--plan to continue twice daily for 3 months Started on Carafate --needs 2-week course Needs repeat upper endoscopy in 3 months Tolerating full liquids, advanced to soft diet. H/H low but stable. Consider repeat CBC by PCP in 1 week followup. Alcohol use disorder Relapsed in past few weeks Continue gabapentin per protocol Monitor for withdrawal Continue thiamine, folic acid Counseled to quit drinking She is interested in vivitrol injections and will discuss this with PCP on followup. Left Rib Pain X ray:No acute rib fractures. No pneumothorax. Incentive Spirometry US with doppler of liver; PVT also ruled out. This pain is chronic and continued evaluation and workup with PCP recommended. Hypothyroidism chronic, stable. Continue levothyroxine Chronic hypomagnesemia Continue magnesium supplement chronically, and encourage her to stop drinking which is the likely etiiology. Chronic hyponatremia Secondary to alcohol use disorder Monitor sodium level Hypokalemia Replete electrolytes as needed monitor Depression with anxiety chronic, stable. Continue Wellbutrin Encourage outpatient counseling/therapy for addiction/depression DVT Px: SCDs Re: GI bleed CODE STATUS Full code Discharged to home in stable condition with close primary care follow-up scheduled I spent a total [id number] coordinating, documenting, and providing care for this patient excluding time spent in the performance of separately billed services Discharge Exam CONSTITUTIONAL: WNWD, vitals as above, generally well-appearing, NAD EYES: normal conjunctivae, no scleral icterus, ENT: external ear and nose normal, NECK: trachea midline RESPIRATORY: clear to auscultation bilaterally, no crackles, rales or wheezes, normal respiratory effort CARDIOVASCULAR: regular rate and rhythm, S1 and 2 heard without murmurs, gallops or rubs, no JVD, no peripheral edema CHEST: inspection of chest was normal GASTROINTESTINAL: soft, nontender, ND, no guarding, no CVA tenderness MUSCULOSKELETAL: strength 5/5 throughout, head is normocephalic and atraumatic SKIN: warm and dry NEUROLOGIC: CN 2-12 grossly intact, no sensory deficit, normal cognition, normal speech, no tremor PSYCHIATRIC: alert cooperative and oriented to person, place and time. Euthymic mood, makes good eye contact, language grossly intact, recent and remote memory grossly intact. Updated Medication List Medication Instructions Recorded Confirmed Type cholecalciferol (vitamin D3) 25 1,000 unit PO WE 10/30/18 05/30/22 History mcg (1,000 unit) capsule (Vitamin D3) cyanocobalamin (vitamin B-12) 1,000 mcg PO QAM 10/30/18 05/30/22 History 1,000 mcg tablet (Vitamin B-12) folic acid 1 mg tablet 1 mg PO QAM #30 tabs 04/07/20 03/28/23 Rx bupropion HCl 150 mg 24 hr tablet, 150 mg PO DAILY 08/19/19 05/30/22 History extended release gabapentin 800 mg tablet 800 mg PO TID 01/12/20 05/30/22 History gabapentin 400 mg capsule 400 mg PO TID 04/26/21 05/30/22 History levothyroxine 150 mcg tablet 150 mcg PO DAILYBB #30 tabs 04/30/21 05/30/22 Rx (Synthroid) magnesium oxide 400 mg (241.3 mg 400 mg PO BID #30 tabs 04/30/21 05/30/22 Rx magnesium) tablet spironolactone 25 mg tablet 50 mg PO QAM #60 tabs 04/30/21 05/30/22 Rx furosemide 40 mg tablet 40 mg PO DAILY 05/30/22 05/30/22 History lactulose 10 gram/15 mL oral 15 ml PO TID PRN Constipation 05/30/22 05/30/22 History solution omeprazole 40 mg capsule,delayed 40 mg PO BID #60 caps 06/02/22 Rx release sucralfate 1 gram tablet (Carafate) 1 g PO BID #28 tabs 06/02/22 Rx Hospital Stay Data Consultations 05/30/22 12:37 ED Decision to Admit Stat 05/30/22 13:02 Consult Gastroenterology Routine Procedures Performed Operation Date: 05/31/22 16:30 Actual Procedures p EGD Banding of Varices - Paola Marin MD Diagnostic Imagining Performed 06/02/22 US duplex portal hepatic veins Urgent Pending Results Patient Have Any Pending Studies at Discharge: No Discharge Instructions Given to Patient (Per Discharging Provider) Please continue all medications as instructed on discharge list below. You ultrasound of the liver with doppler showed no evidence of a blood clot. You will need a repeat upper endoscopy in the next few months. Please follow-up with [facility]astroenter[facility] for instructions on this. It is recommended that you take a PPI (proton pump inhibitor which suppresses acid in the stomach) 40mg by mouth twice daily x 3 months, and sucralfate suspension twice daily x 2 weeks. Please increase your omeprazole to twice daily. Pleas hold off on taking your nifedipine because your blood pressure is on the low side at discharge. Your primary care provider will be able to restart this on follow-up if needed. Please followup with your primary care provider next week as scheduled to ensure that you are doing well since returning home. It was a pleasure taking care of you! Please call if you have any questions or problems. You can reach a [facility] hospitalist on duty at [facility] 24 hours a day by calling [phone]. Take care of yourself. Wendy Lopez, DO [facility] Total Time Total Time Spent Total Time Spent (In Minutes): 60
--- NOTE | 2022-06-06 10:59 | Coding Query ---
CODING QUERY To promote full compliance with coding requirements relating to patient care, provider participation is requested in all cases of security coordinator uncertainty. Please assist us with the question(s) below: Coding Question(s): Pt admitted with melena,alcoholic cirrhosis liver with ascites. EGD with banding of esophageal varices done. * Esophageal varices with red whale signs noted . Please document, if known or suspected , the etiology of the Upper GI bleed. Thanks for your help! Julio Rico [facility] Physician's Response(s): Portal hypertension causing esophageal varices with bleeding and gastropathy 2/2 portal hypertension all secondary to alcoholic cirrhosis of the liver. sms Principal Diagnosis: "that condition established after study, to be chiefly responsible for occasioning the admission of the patient to the hospital for care." Co-Existing Principal Diagnosis: "when two or more diagnoses equally meet the criteria for principal diagnosis as determined by the circumstances of admission, diagnostic work up, and/or therapy provided, and the Alphabetic Index, Tabular List, or another coding guideline does not provide sequencing direction, any one of the diagnoses may be sequenced first." "When the physician has documented what appears to be a current diagnosis in the body of the record, but has not included the diagnosis in the final diagnostic statement, the physician should be asked whether the diagnosis should be added." (Source Coding Clinic 2 QTR90. p3-4) [place]
== END 2022-06-02 16:01 | disposition home or self-care (01) ==
LOC: ED 11:07 → INTOOBSV 14:34 → EDINP 14:34 → SUATTDRO 14:34 → 1E 15:20 → 2E 06-01 17:35

== ENCOUNTER 2022-12-08 14:22 | Inpatient (IN) ==
[2022-12-08] MEDS ORDERED: SODIUM CHLORIDE 0.9% 1,000 ML IV ONE (15:19)
--- NOTE | 2022-12-08 15:34 | Emergency Department Note ---
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 inflammation throughout the retroperitoneum. Pelvic viscera: The bladder is distended but otherwise normal in appearance. The uterus and adnexa are normal as visualized. Skeletal structures: The skeletal structures are osteopenic. There is moderate lumbosacral spondylosis. No lytic or blastic lesions are seen. There is significant degenerative endplate change at L3-L4 and L4-L5 with mild erosion. There is marked paravertebral edema at these levels. IMPRESSION: 1. There is significant perivertebral edema at L3-L4 and L4-L5 with associated endplate change. This has significantly progressed from 04/28/2021, and although this could be on degenerative basis the appearance is more suspicious for discitis/osteomyelitis. Clinical correlation will be required. See report of lumbar spine CT performed concurrently for detailed spinal findings. 2. Mild retroperitoneal lymphadenopathy and retroperitoneal infiltration is likely reactive/related to the adjacent spinal process. 3. The liver is enlarged, steatotic, and shows morphologic change of cirrhosis. 4. Esophageal varices, a small volume of abdominal ascites, and a splenorenal shunt indicate portal hypertension. 5. Numerous low-attenuation foci throughout the liver likely represent regenerative nodules of cirrhosis. Correlate with serum AFP levels. 6. Wall thickening/edema with mucosal hyperemia of the right colon likely represent portal colopathy. Correlate clinically for evidence of an infectious/inflammatory colitis. 7. Marked bladder distention. 8. There are small gallstones within a markedly distended gallbladder. There is no clear CT evidence of acute cholecystitis. Clinical and laboratory correlation will be required. 9. Additional findings as above. ACT 112: Negative or not required by law. Electronically signed by: Yasir Momin M.D. 12/08/2022 4:[address] 12/08/22 15:20 CT head/brain wo con CLINICAL HISTORY: 57 years-old Female with weakness. Acute weakness TECHNIQUE: Multiple axial CT images of the head were obtained without contrast. A dose lowering technique was utilized adhering to the principles of ALARA. CT DOSE: 2340.39 mGy.cm COMPARISON: 06/02/2019 FINDINGS: No acute intracranial hemorrhage, midline shift, intracranial mass, hydrocephalus, territorial ischemia or abnormal extra-axial collection. Involutional changes with chronic microvascular ischemic disease. Motion degraded study. The calvarium is intact. The paranasal sinuses, mastoid air cells, and middle ear cavities are clear. IMPRESSION: No acute intracranial abnormality. ACT 112: Negative or not required by law. The above report was generated using voice recognition software. It may contain grammatical, syntax or spelling errors. Electronically signed by: Benjamin Bryant M.D. 12/08/2022 4:55 PM Chest X-Ray 12/08/22 15:21 XR chest 1V portable CLINICAL HISTORY: abd pain hypotension TECHNIQUE: Single frontal radiograph of the chest was obtained. Comparison: Comparison is made to rib series 05/31/2022 FINDINGS: No lines and tubes are seen. The cardiomediastinal silhouette is normal. The lungs are clear. No evidence of pleural effusion or pneumothorax. IMPRESSION: No acute chest disease. ACT 112: Negative or not required by law. Electronically signed by: Donal Lopez M.D. 12/08/2022 3:47 PM [facility] Narrative 1501: The patient was evaluated in room B5. A complete history and physical exam was performed Cardiac monitoring: An order was placed for continuous cardiac monitoring. The monitor shows a rate of 80 with sinus rhythm interpreted by me Patient hypotensive on arrival. Sepsis protocols initiated and patient will be given large-bore IV access obtained and will be given IV fluids. 1725: Vital signs stable status post fluid resuscitation. Labs show normal white blood cell count. Hemoglobin 12.5. INR 1.3. Sodium 128. Initial lactic acid 3.3. Patient was treated with 30 cc/kg normal saline bolus based off her ideal body weight. Total bilirubin 1.2. Lipase 9. Ammonia 39. Chest x-ray and CT of the head negative. CT of the abdomen pelvis and CT of the L-spine shows significant paravertebral edema at L3-L4 and L4-L5 with associated endplate change which could represent a degenerative basis versus d iscitis/osteomyelitis more suspicious for discitis/osteomyelitis. There is mild retroperitoneal lymphadenopathy and retroperitoneal infiltration. Patient's Tylenol level was 77. Patient states she took Tylenol last at noon. We will repeat her serum Tylenol level. Discussed case with orthopedic spine Dr. Chisholm who recommends medical management for the discitis/osteomyelitis with IV antibiotics. He states that the patient should be admitted to the medical team and an MRI should be obtained. Patient be treated with Zosyn and vancomycin. 2024: Vital signs stable. There was delay in the repeat Tylenol level secondary to lab hemolysis. Repeat Tylenol level came back elevated at 44. Discussed case with Clarita Garcia hospitalist who requested to speak with poison control. Spoke with poison control Brandee. Brandee recommends that we start NAC protocol treatment with the patient. NAC protocol initiated in the emergency department. Brandee also recommends that a salicylate level be ordered. This has been ordered 2. [facility] Clarita was made aware that NAC wi ll be initiated. Impression & Plan Discitis, Sepsis, Hyponatremia, Osteomyelitis Discharge Plan Visit Data Chief Complaint: Back Injury/Pain ED Provider: Shashi Ellington Discharge Problem: Discitis, Sepsis, Hyponatremia, Osteomyelitis Patient Disposition: Admitted As Inpatient Discharge Instructions Interventions: ED Discharge Assessment Last Done: 12/08/22 20:18
--- NOTE | 2022-12-08 15:48 | XRay Report ---
XR chest 1V portable CLINICAL HISTORY: abd pain hypotension TECHNIQUE: Single frontal radiograph of the chest was obtained. Comparison: Comparison is made to rib series 05/31/2022 FINDINGS: No lines and tubes are seen. The cardiomediastinal silhouette is normal. The lungs are clear. No evid ence of pleural effusion or pneumothorax. IMPRESSION: No acute chest disease. ACT 112: Negative or not required by law. Electronically signed by: Donal Lopez M.D. 12/08/2022 3:47 PM
[2022-12-08 15:52] LABS: iSTAT Creatinine 1.2 mg/dl (0.6-1.3); iSTAT Hemoglobin 12.9 g/dl (12.0-16.0); iSTAT Ionized Calcium 0.98 mmol/l (1.12-1.32); iSTAT Potassium 4.4 mmol/L (3.3-5.0)
[2022-12-08 16:22] LABS: Basophils # (auto) 0.02 K/uL (0.00-0.20); Basophils % (auto) 0.2 %; Eosinophils # (auto) 0.26 K/uL (0.00-0.50); Eosinophils % (auto) 2.7 %; Hematocrit (blood only) 36.7 % (37.0-47.0); Hemoglobin 12.5 g/dl (12.0-16.0); Immature Granulocytes # (auto) 0.08 K/uL (0.01-0.20); Immature Granulocytes % (auto) 0.8 %; Lymphocytes # (auto) 0.26 K/uL (1.20-3.40); Lymphocytes % (auto) 2.7 %; Mean Corpuscular Hgb Conc 34.1 g/dL (32.0-36.0); Mean Corpuscular Volume 102.8 fL (80.0-100.0); Mean Platelet Volume 10.5 fL (9.4-12.4); Monocytes # (auto) 0.43 K/uL (0.11-0.59); Monocytes % (auto) 4.5 %; Neutrophils # (auto) 8.53 K/uL (1.40-6.50); Neutrophils % (auto) 89.1 %; Platelet Count 116 K/uL (130-400); Platelet Estimate Normal (Normal); RDW Coefficient of Variation 14.6 % (11.5-14.5); RDW Standard Deviation 55.1 fL (36.4-46.3); Red Blood Count 3.57 M/uL (4.20-5.40); White Blood Count 9.58 K/ul (4.8-10.8)
[2022-12-08 16:23] LABS: Alanine Aminotransferase 23 U/L (7-52); Albumin Level 3.5 gm/dl (3.4-5.0); Alkaline Phosphatase 156 U/L (34-104); Anion Gap 10 (3-11); Aspartate Aminotransferase 73 U/L (13-39); BUN Creatinine Ratio 8.6 (10-20); Bilirubin,Total 1.2 mg/dl (0.2-1.0); Blood Urea Nitrogen 8 mg/dl (6-23); Calcium 8.1 mg/dl (8.6-10.3); Carbon Dioxide 23 mmol/L (21-32); Chloride 95 mmol/L (98-107); Creatinine Clr Calc Pharmacy 68.9 ml/min; Est GFR (African American) 79.1 ml/min; Est GFR (Non-African American) 68.2 ml/min; Glucose 90 mg/dl (70-99(Fasting)); Lipase 9 U/L (11-82); Magnesium 1.8 mg/dl (1.7-2.4); Potassium 3.6 mmol/L (3.5-5.1); Sodium 128 mmol/L (136-145); Total Protein 7.7 gm/dl (6.0-8.3)
[2022-12-08] MEDS ORDERED: OPTIRAY 320 100ml IV ONE (16:28)
[2022-12-08 16:31] LABS: INR 1.3 (0.9-1.1); Partial Thromboplastin Ratio 1.2; Prothrombin Time 14.1 Seconds (9.0-12.0)
--- NOTE | 2022-12-08 16:50 | CT Scan Report ---
CT lumbar spine w con HISTORY: 57 years-old Female back pain acute low back pain COMPARISON: CT abdomen and pelvis 04/28/2021 TECHNIQUE: Multiple axial CT images of the lumbar spine were obtained following the intravenous admin istration of 93 mL Optiray 320. A dose lowering technique was used consistent with the principals of CANDICE. FINDINGS: Partially imaged distal esophageal wall thickening with inflammatory stranding near the distal esopha ghislaine-hepatic tissues. Partially imaged enlarged paraesophageal lymph node on image 11 series 9. Fluid noted within the tiffanie hepatis. Atherosclerosis of the aorta. Intralobular septal thickening in the l teofilo bases. There is nonspecific moderate paravertebral edema at L4-L5 and to lesser extent at L3-L4. There is en dplate irregularity at both of these levels with moderate to severe mucosal disc space narrowing. The findings at L4-L5 have notably progressed from the prior study. Mild lumbar levoscoliosis. No acute fracture or subluxation. Limited evaluation of the central canal or neural foramina by CT technique. L1-L2: Posterior annular disc bulge flattens the ventral thecal sac. Mild left foraminal narrowing. R ight neural foramen is patent. L2-L3: Vacuum disc phenomenon with moderate vertebral disc space narrowing. Circumferential annular d isc bulge with ligamentum flavum thickening and moderate facet arthrosis. Mild central canal and righ t foraminal narrowing. Mild to moderate left foraminal stenosis. L3-L4: Endplate irregularity at this interspace and paravertebral edema as above. Severe central anny l stenosis. AP dimension of thecal sac measures 5 mm. Posterior annular disc bulging with ligamentum flavum thickening and facet arthrosis. Severe right with moderate left foraminal stenosis. L4-L5: Slight irregularity at this interspace and paravertebral edema as above. Circumferential annul ar disc bulging with ligamentum flavum thickening and facet arthrosis. Severe central canal stenosis with AP dimension of the thecal sac measuring 3 mm. Severe bilateral foraminal stenosis. L5-S1: Severe intervertebral disc space narrowing with circumferential disc osteophyte complex. Mild central canal stenosis. Severe bilateral foraminal narrowing. IMPRESSION: 1. Progressively worsened intervertebral disc space narrowing with endplate irregularity involving th e L3-L4 and L4-L5 disc spaces compared to the study from 04/28/2021. Additionally, there is moderate associated paravertebral edema. Although these findings may be on a d egenerative basis, they are suspicious for discitis/osteomyelitis. 2. Multilevel central canal and foraminal narrowing. 3. No acute fracture or subluxation identified. 4. Retroperitoneal lymphadenopathy. 5. Please refer to the CT abdomen and pelvis study of same day for additional findings. ACT 112: Negative or not required by law. The above report was generated using voice recognition software. It may contain grammatical, syntax o r spelling errors. Electronically signed by: Benjamin Bryant M.D. 12/08/2022 4:48 PM
[2022-12-08] MEDS ORDERED: VANCOMYCIN CONSULT ACTIVE PRN (16:52)
--- NOTE | 2022-12-08 16:53 | CT Scan Report ---
CT SCAN OF THE ABDOMEN AND PELVIS WITH IV CONTRAST CLINICAL HISTORY: Hypotension. Low back pain. COMPARISON STUDY: Abdominal CT dated 04/28/2021. TECHNIQUE: Following the IV administration of 93 cc of Optiray 320, CT scan of the abdomen and pelvi s is performed from the lung bases to the proximal femora. Images are reviewed in the axial, sagittal , and coronal planes. IV contrast was administered without complication. A dose lowering technique wa s utilized adhering to the principles of ALARA. FINDINGS: Lung bases: The heart is enlarged and without pericardial effusion. There is bibasilar scarring/atele ctasis. No airspace consolidation or pleural effusion is identified. There is a small hiatal hernia. Esophageal varices are noted. Liver: The contrast-enhanced liver is enlarged and markedly heterogeneous, measuring 20.1 cm in lengt h. Attenuation is diminished indicating steatosis. There are cirrhotic morphology, with nodularity of the hepatic surface contour. There is no intrahepatic biliary ductal dilatation. The hepatic veins a nd portal veins are patent. There is a splenorenal shunt. There are numerous low-attenuation foci see n throughout the liver, likely resent a regenerative nodules and cirrhosis. Gallbladder: The gallbladder is markedly distended and there are tiny calcified gallstones. Spleen: Normal in size and attenuation, measuring 12.5 cm in length. Pancreas: Unremarkable. Adrenal glands: Unremarkable. Kidneys: The contrast enhanced kidneys are normal in size and without hydronephrosis. The kidneys enh ance symmetrically. Abdominal vasculature: The abdominal aorta is normal in course and caliber nothing moderate atheroscl erotic calcification. Bowel: There is mild colonic diverticulosis without CT evidence of acute diverticulitis. No bowel obs truction is seen. There is wall thickening and mucosal hyperemia involving the right colon. The appen westley is well-visualized and normal. Peritoneum: There is a small volume of perihepatic as well as trace perisplenic ascites ascites. No i ntraperitoneal free air is seen. Lymphadenopathy: There are numerous mildly enlarged retroperitoneal lymph nodes which measure up to 9 mm in short axis. There is also mild inflammation throughout the retroperitoneum. Pelvic viscera: The bladder is distended but otherwise normal in appearance. The uterus and adnexa ar e normal as visualized. Skeletal structures: The skeletal structures are osteopenic. There is moderate lumbosacral spondylosi s. No lytic or blastic lesions are seen. There is significant degenerative endplate change at L3-L4 a nd L4-L5 with mild erosion. There is marked paravertebral edema at these levels. IMPRESSION: 1. There is significant perivertebral edema at L3-L4 and L4-L5 with associated endplate change. This has significantly progressed from 04/28/2021, and although this could be on degenerative basis the gale earance is more suspicious for discitis/osteomyelitis. Clinical correlation will be required. See rep ort of lumbar spine CT performed concurrently for detailed spinal findings. 2. Mild retroperitoneal lymphadenopathy and retroperitoneal infiltration is likely reactive/related t o the adjacent spinal process. 3. The liver is enlarged, steatotic, and shows morphologic change of cirrhosis. 4. Esophageal varices, a small volume of abdominal ascites, and a splenorenal shunt indicate portal h ypertension. 5. Numerous low-attenuation foci throughout the liver likely represent regenerative nodules of cirrho sis. Correlate with serum AFP levels. 6. Wall thickening/edema with mucosal hyperemia of the right colon likely represent portal colopathy. Correlate clinically for evidence of an infectious/inflammatory colitis. 7. Marked bladder distention. 8. There are small gallstones within a markedly distended gallbladder. There is no clear CT evidence of acute cholecystitis. Clinical and laboratory correlation will be required. 9. Additional findings as above. ACT 112: Negative or not required by law. Electronically signed by: Yasir Momin M.D. 12/08/2022 4:52 PM
--- NOTE | 2022-12-08 16:57 | CT Scan Report ---
CT head/brain wo con CLINICAL HISTORY: 57 years-old Female with weakness. Acute weakness TECHNIQUE: Multiple axial CT images of the head were obtained without contrast. A dose lowering tech nique was utilized adhering to the principles of ALARA. CT DOSE: 2340.39 mGy.cm COMPARISON: 06/02/2019 FINDINGS: No acute intracranial hemorrhage, midline shift, intracranial mass, hydrocephalus, territorial ischem ia or abnormal extra-axial collection. Involutional changes with chronic microvascular ischemic disea se. Motion degraded study. The calvarium is intact. The paranasal sinuses, mastoid air cells, and middle ear cavities are clear . IMPRESSION: No acute intracranial abnormality. ACT 112: Negative or not required by law. The above report was generated using voice recognition software. It may contain grammatical, syntax o r spelling errors. Electronically signed by: Benjamin Bryant M.D. 12/08/2022 4:55 PM
[2022-12-08] MEDS ORDERED: PIPERACILLIN/TAZOBACTAM 4.5 GM in DEXTROSE 5% MINI-B 100 ML IV ONE (17:01)
[2022-12-08 17:17] LABS: Appearance Urine Cloudy (Clear); Bacteria Urine Automated 2+ (Negative); Bilirubin Urine Negative (Negative); Blood Urine Negative (Negative); Color Urine Yellow; Glucose Urine UA Negative (Negative); Ketones Urine Negative (Negative); Leukocyte Esterase Urine 2+ (Negative); Nitrite Urine Positive (Negative); Protein Urine Negative (Negative); RBC Urine Automated 0-4 /hpf (0-4); Specific Gravity Urine 1.016 (1.000-1.030); Urobilinogen Urine Negative (Negative); WBC Urine Automated >30 /hpf (0-5); pH Urine 5.5 (4.5-7.5)
[2022-12-08] MEDS: VANCOMYCIN HCL 2,000 MG in SODIUM CHLORIDE 0.9% 500 ML IV ONE ×2 (17:24→17:27)
[2022-12-08] MEDS ORDERED: KETOROLAC TROMETHAMINE 15 MG/ML VIAL IV STA (17:44)
[2022-12-08 18:15] LABS: C Reactive Protein 2.26 mg/dl (0-0.5)
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
[2022-12-08] MEDS ORDERED: MoRPHine SULFATE 4 MG/ML 1 ML CARP\\VIAL IV STA (19:56)
[2022-12-08 20:10] LABS: Acetaminophen 44 ug/ml (10-30)
[2022-12-08] MEDS ORDERED: SODIUM CHLORIDE 0.9% 1,000 ML IV SCH (20:19)
[2022-12-08] MEDS ORDERED: LORazepam 2 MG/1 ML VIAL IV PRN (20:19)
[2022-12-08] MEDS ORDERED: POLYETHYLENE (MIRALAX) 17 GM PACK PO PRN (20:19)
[2022-12-08] MEDS ORDERED: MAGNESIUM HYDROXIDE SUSP 30 ML UDC PO PRN (20:19)
[2022-12-08] MEDS ORDERED: ALUMINUM/MAGNESIUM SUSP 30 ML UDC PO PRN (20:19)
[2022-12-08] MEDS ORDERED: ACETYLCYSTEINE IV ONE ×3 (20:23)
[2022-12-08] MEDS ORDERED: DEXTROSE 5% IV ONE ×3 (20:23)
[2022-12-08 20:49] LABS: Salicylate < 3.0 mg/dl (3.0-30)
[2022-12-08] MEDS ORDERED: GADOBUTROL 65ML VIAL IV ONE (20:57)
[2022-12-08] MEDS ORDERED: cefTRIAXone SODIUM 2,000 MG in DEXTROSE 5% 50 ML IV SCH (21:00)
--- NOTE | 2022-12-08 21:55 | Magnetic Resonance Report ---
Exam(s): MRI L SPINE W/WO Contrast IV Amt: 7.5mL Gadavist IV EXAM: MR Lumbar Spine Without and With Intravenous Contrast CLINICAL HISTORY: Reason for exam: eval for osteomyelitis lumbar spine. TECHNIQUE: Magnetic resonance images of the lumbar spine without and with intravenous contrast in multiple planes. CONTRAST: Patient received 7.5mL Gadavist IV of IV contrast COMPARISON: CT lumbar spine of 12/08/2022 FINDINGS: Vertebrae: Straightening of the lumbar spine with loss of normal lordosis. Otherwise, alignment is maintained with preservation of vertebral body heights. Spinal cord: Conus ends at L1. No abnormal enhancement. Soft tissues: Unremarkable. DISCS/SPINAL CANAL/NEURAL FORAMINA: L1-L2: Unremarkable. No significant disc disease. No stenosis. L2-L3: Broad-based disc bulge without significant spinal canal or neural foramen stenosis. L3-L4: Severe loss of intervertebral disc height with broad-based disc bulge and facet hypertrophy causes mild spinal canal stenosis at And moderate right neural foramen stenosis. No significant left neural foramen stenosis due to a degenerative disc bulge, ligamentum flavum and facet hypertrophy. L4-L5: Endplate marrow edema with minimal fluid in the intervertebral disc but there is prominent paraspinal soft tissue swelling concerning for discitis/osteomyelitis. No paraspinal or epidural abscess. Posterior bony spurs and broad-based disc with facet degeneration causes moderate spinal canal stenosis and moderate left neural foramen stenosis especially far laterally. L5-S1: Posterior bony spurs with traction disc and facet degeneration causes moderate to severe spinal canal stenosis and moderate bilateral neural foramen stenosis, especially in the far left lateral region. IMPRESSION: 1. L4-5 discitis/osteomyelitis without evidence of paraspinal or epidural abscess. 2. L3-4, L4-5, L5-S1 spondylosis as described specifically above at each level. Electronically signed by: Carlos Red M.D. 12/08/22 21:54 PM
[2022-12-08] MEDS: GABAPENTIN 400 MG CAP PO SCH (22:00)
[2022-12-08] MEDS: PANTOprazole 40 MG TAB PO SCH (22:01)
[2022-12-08] MEDS: GABAPENTIN 800 MG TAB PO SCH (22:01)
[2022-12-08] MEDS: oxyCODONE HCL IR 5 MG TAB (IMMEDIATE RELEASE) PO PRN (22:16)
[2022-12-08] MEDS: ONDANSETRON INJ 2 MG/ML 2 ML VIAL IV PRN (23:18)
[2022-12-08] MEDS: MAGNESIUM OXIDE 400 MG TAB PO SCH (23:24)
[2022-12-09] MEDS: MoRPHine SULFATE 4 MG/ML 1 ML CARP\\VIAL IV PRN ×2 (01:52→11:01)
[2022-12-09] MEDS ORDERED: VANCOMYCIN HCL 750 MG in SODIUM CHLORIDE 0.9% 250 ML IV SCH (04:00)
[2022-12-09 05:15] LABS: Hematocrit (blood only) 34.8 % (37.0-47.0); Hemoglobin 11.7 g/dl (12.0-16.0); Mean Corpuscular Hemoglobin 34.9 pg (25.0-34.0); Mean Corpuscular Hgb Conc 33.6 g/dL (32.0-36.0); Mean Corpuscular Volume 103.9 fL (80.0-100.0); Mean Platelet Volume 9.9 fL (9.4-12.4); Platelet Count 91 K/uL (130-400); RDW Coefficient of Variation 14.7 % (11.5-14.5); Red Blood Count 3.35 M/uL (4.20-5.40)
[2022-12-09 05:31] LABS: ALC (manual) 0.22 K/uL (1.2-3.4); ANC (manual) 10.75 K/uL (1.4-6.5); Lymphocytes # (manual) 0.22 K/uL (1.2-3.4); Lymphocytes % (manual) 2 %; Monocytes # (manual) 0.22 K/uL (0.11-0.59); Monocytes % (manual) 2 %; Neutrophils # (manual) 10.75 K/uL (1.40-6.50); Neutrophils % (manual) 96 %; RBC Morphology Unremarkable
[2022-12-09 05:34] LABS: Albumin Globulin Ratio 0.8 (0.9-2); Albumin Level 2.8 gm/dl (3.4-5.0); BUN Creatinine Ratio 9.3 (10-20); Bilirubin,Total 0.7 mg/dl (0.2-1.0); Calcium 7.2 mg/dl (8.6-10.3); Creatinine Clr Calc Pharmacy 86.2 ml/min; Est GFR (African American) 102.6 ml/min; Est GFR (Non-African American) 88.5 ml/min; Globulin 3.6 gm/dl (2.5-4.0); Magnesium 1.6 mg/dl (1.7-2.4); Potassium 3.1 mmol/L (3.5-5.1); Total Protein 6.4 gm/dl (6.0-8.3)
[2022-12-09] MEDS: LEVOTHYROXINE SODIUM 150 MCG TABLET PO SCH (05:56)
[2022-12-09 07:12] LABS: A calco-baum cmplx NotReported Not Detected (NotDetected); Bact fragilis Not Reported Not Detected (NotDetected); C auris Not Reported Not Detected (NotDetected); Calbicans Not Reported Not Detected (NotDetected); Candida glabrata Not Reported Not Detected (NotDetected); Candida krusei Not Reported Not Detected (NotDetected); Cneoformans/gatti Not Reported Not Detected (NotDetected); Cparapsilosis Not Reported Not Detected (NotDetected); E cloacae compx Not Reported Not Detected (NotDetected); Efaecalis Not Reported Not Detected (NotDetected); Efaecium Not Reported Not Detected (NotDetected); Enterobacterales Not Reported Not Detected (NotDetected); Escherichia coli Not Reported Not Detected (NotDetected); H influenzae Not Reported Not Detected (NotDetected); K aerogenes Not Reported Not Detected (NotDetected); Koxytoca Not Reported Not Detected (NotDetected); Kpneumoniae grp Not Reported Not Detected (NotDetected); Lmonocyt Not Reported Not Detected (NotDetected); N meningitidis Not Reported Not Detected (NotDetected); P aeruginosa Not Reported Not Detected (NotDetected); Proteus spp Not Reported Not Detected (NotDetected); Salmonella spp Not Reported Not Detected (NotDetected); Smarcescens Not Reported Not Detected (NotDetected); Staph lugdunensis Not Reported Not Detected (NotDetected); Staph spp. Not Reported Not Detected (NotDetected); Staphaureus Not Reported Not Detected (NotDetected); Staphepi Not Reported Not Detected (NotDetected); Stenmaltophilia Not Reported Not Detected (NotDetected); Strep agal(GrpB) Not Reported Not Detected (NotDetected); Strep pneum Not Reported Not Detected (NotDetected); Strep pyog (GrpA) Not Reported Not Detected (NotDetected); Strep spp Not Reported DETECTED (NotDetected)
[2022-12-09 07:30] LABS: Streptococcus spp DETECTED (NotDetected)
[2022-12-09] MEDS ORDERED: CYCLOBENZAPRINE HCL 5 MG TAB PO ONE (07:48)
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
[2022-12-09] MEDS: MAGNESIUM OXIDE 400 MG TAB PO SCH ×2 (08:22→20:38)
[2022-12-09] MEDS: CYANOCOBALAMIN (B-12) 500 MCG TABLET PO SCH (08:22)
[2022-12-09] MEDS: GABAPENTIN 400 MG CAP PO SCH ×3 (08:22→20:38)
[2022-12-09] MEDS: THIAMINE HCL 100 MG TAB PO SCH (08:22)
[2022-12-09] MEDS: FOLIC ACID 1 MG TAB PO SCH (08:22)
[2022-12-09] MEDS: buPROPion XL 150 MG TABCR PO SCH (08:22)
[2022-12-09] MEDS: LACTULOSE SYRUP 10 GM/15 ML BTL 960 ML PO SCH ×3 (08:23→20:46)
[2022-12-09] MEDS: GABAPENTIN 800 MG TAB PO SCH ×3 (08:23→20:38)
[2022-12-09] MEDS: PANTOprazole 40 MG TAB PO SCH ×2 (08:24→20:38)
[2022-12-09] MEDS: FERROUS SULFATE 325 MG TAB PO SCH (08:27)
[2022-12-09] MEDS ORDERED: NALTREXONE HCL 50 MG TAB PO SCH (09:00)
[2022-12-09] MEDS: oxyCODONE HCL IR 5 MG TAB (IMMEDIATE RELEASE) PO PRN (09:35)
[2022-12-09] MEDS ORDERED: CEFEPIME 2,000 MG in SYRINGE 0 ML IV SCH (11:00)
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
--- NOTE | 2022-12-09 12:17 | Electrocardiogram Report ---
Test Reason : Blood Pressure : / mmHG Vent. Rate : 076 BPM Atrial Rate : 076 BPM P-R Int : 152 ms QRS Dur : 076 ms QT Int : 434 ms P-R-T Axes : 062 009 050 degrees QTc Int : 488 ms Normal sinus rhythm Low voltage QRS Inferior infarct , age undetermined Abnormal ECG When compared with ECG of 19-AUG-2019 05:28, Inferior infarct is now Present T wave amplitude has decreased in Lateral leads Confirmed by Luis Fernando Crawford ([id number]) on 12/09/2022 12:17:28 PM Referred By: REFERRED SELF Confirmed By:Luis Fernando Crawford
--- NOTE | 2022-12-09 12:57 | Pharmacy Report ---
Pharmacy PK ABX Note - Date of Service December 09, 2022 - Assessment and Plan Assessment 57 year old F receiving vancomycin and cefepime for treatment of discitis and bacteremia. Blood cultures (+) GPC in chains in 3. Biofire is (+) Strep spp. SCr back to baseline today. Recommended de-escalation of antibiotics to ceftriaxone for improved Strep coverage. Day # 2 of antimicrobial therapy. Plan Vancomycin * Loading dose: 2000 mg IV x 1 * Maintenance dose: 1000 mg IV every 12 hours * Regimen is predicted to achieve target AUC/YOLIS of 400-600 mg/L.hr * Will obtain a level around steady state. Pharmacy will continue to follow and will adjust dose/frequency as necessary. Thank you. Pharmacy has transitioned to AUC monitoring for vancomycin. AUC/YOLIS is the preferred PK/PD target and is associated with decreased risk of nephrotoxicity compared to traditional trough targets.
[2022-12-09 14:54] LABS: Albumin Level 2.6 gm/dl (3.4-5.0); Bilirubin Direct 0.3 mg/dl (0-0.2); Bilirubin,Total 0.7 mg/dl (0.2-1.0); Total Protein 6.1 gm/dl (6.0-8.3)
[2022-12-09 15:13] LABS: INR 1.5 (0.9-1.1); Partial Thromboplastin Ratio 1.5; Prothrombin Time 16.5 Seconds (9.0-12.0)
[2022-12-09 15:16] LABS: Partial Thromboplastin Time 41.3 Seconds (21.0-31.0)
[2022-12-09] MEDS ORDERED: POTASSIUM CHLORIDE CRTAB 20 MEQ TABCR PO STA (15:33)
[2022-12-09] MEDS ORDERED: VANCOMYCIN HCL 1,000 MG in SODIUM CHLORIDE 0.9% 250 ML IV SCH (16:00)
[2022-12-09] MEDS ORDERED: NALOXONE HCL 0.4 MG/1 ML VIAL/CARP IV PRN (16:18)
[2022-12-09] MEDS: MAGNESIUM SULFATE / D5W 1 GM/100 ML BAG IV SCH ×2 (16:22→19:01)
[2022-12-09] MEDS ORDERED: SODIUM CHLORIDE 0.9% 1,000 ML IV SCH (16:30)
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
[2022-12-09] MEDS: MoRPHine SULFATE PCA 30 MG/30 ML IV PRN ×2 (17:30→21:54)
[2022-12-09] MEDS: DOCUSATE SODIUM 100 MG CAP PO SCH (20:46)
[2022-12-09] MEDS ORDERED: cefTRIAXone SODIUM 2,000 MG in DEXTROSE 5% 50 ML IV SCH (22:00)
[2022-12-09] MEDS ORDERED: CEFEPIME 1,000 MG in SYRINGE 0 ML IV STA (23:37)
[2022-12-09] MEDS ORDERED: ACETAMINOPHEN 500 MG TAB PO PRN (23:37)
--- NOTE | 2022-12-09 23:40 | Communication Note ---
Date of Service: December 09, [id number] Notified by RN of lethargy and bradypnea on morphine ELEVATOR EXAMINER AND ADJUSTER pump. Improve respiratory rate and mentation on Rovsing as per RN. Hold morphine ELEVATOR EXAMINER AND ADJUSTER pump. [id number] Patient noted to be febrile and tachycardic as per RN. Patient without cough, diarrhea symptoms. AP Persistent fever Gram-negative tresa preliminary growth on UA currently on ceftriaxone Cefepime in place of ceftriaxone for broader GNR coverage.
[2022-12-10] MEDS ORDERED: ALBUMIN 25% 25 GM/100 ML VIAL IV ONE
[2022-12-10] MEDS: CEFEPIME 2,000 MG in SYRINGE 0 ML IV SCH ×2 (00:09→10:23)
[2022-12-10] MEDS: LEVOTHYROXINE SODIUM 150 MCG TABLET PO SCH (05:53)
[2022-12-10 06:08] LABS: Albumin Globulin Ratio 0.9 (0.9-2); Albumin Level 2.9 gm/dl (3.4-5.0); BUN Creatinine Ratio 10.3 (10-20); Bilirubin,Total 0.8 mg/dl (0.2-1.0); Calcium 7.7 mg/dl (8.6-10.3); Creatinine Clr Calc Pharmacy 97.4 ml/min; Est GFR (African American) 112.5 ml/min; Est GFR (Non-African American) 97.1 ml/min; Globulin 3.2 gm/dl (2.5-4.0); Magnesium 2.2 mg/dl (1.7-2.4); Phosphorus 2.1 mg/dl (2.5-4.9); Potassium 3.5 mmol/L (3.5-5.1); Total Protein 6.1 gm/dl (6.0-8.3)
[2022-12-10 06:14] LABS: Basophils # (auto) 0.03 K/uL (0.00-0.20); Basophils % (auto) 0.3 %; Eosinophils # (auto) 0.06 K/uL (0.00-0.50); Eosinophils % (auto) 0.7 %; Hematocrit (blood only) 31.3 % (37.0-47.0); Hemoglobin 10.4 g/dl (12.0-16.0); Immature Granulocytes % (auto) 2.3 %; Lymphocytes # (auto) 0.54 K/uL (1.20-3.40); Lymphocytes % (auto) 6.1 %; Mean Corpuscular Hemoglobin 34.9 pg (25.0-34.0); Mean Corpuscular Hgb Conc 33.2 g/dL (32.0-36.0); Mean Platelet Volume 10.3 fL (9.4-12.4); Monocytes # (auto) 0.72 K/uL (0.11-0.59); Monocytes % (auto) 8.1 %; Neutrophils % (auto) 82.5 %; Platelet Count 77 K/uL (130-400); RDW Coefficient of Variation 14.8 % (11.5-14.5); RDW Standard Deviation 57.8 fL (36.4-46.3); Red Blood Count 2.98 M/uL (4.20-5.40); White Blood Count 8.85 K/ul (4.8-10.8)
[2022-12-10] MEDS: MAGNESIUM OXIDE 400 MG TAB PO SCH ×2 (09:16→19:40)
[2022-12-10] MEDS: LACTULOSE SYRUP 10 GM/15 ML BTL 960 ML PO SCH ×3 (09:16→19:41)
[2022-12-10] MEDS: oxyCODONE HCL IR 5 MG TAB (IMMEDIATE RELEASE) PO PRN ×2 (09:17→14:05)
[2022-12-10] MEDS: GABAPENTIN 800 MG TAB PO SCH ×3 (09:17→19:40)
[2022-12-10] MEDS: buPROPion XL 150 MG TABCR PO SCH (09:17)
[2022-12-10] MEDS: FOLIC ACID 1 MG TAB PO SCH (09:17)
[2022-12-10] MEDS: CYANOCOBALAMIN (B-12) 500 MCG TABLET PO SCH (09:17)
[2022-12-10] MEDS: THIAMINE HCL 100 MG TAB PO SCH (09:17)
[2022-12-10] MEDS: PANTOprazole 40 MG TAB PO SCH ×2 (09:17→19:40)
[2022-12-10] MEDS: GABAPENTIN 400 MG CAP PO SCH ×3 (09:17→19:40)
[2022-12-10] MEDS: DOCUSATE SODIUM 100 MG CAP PO SCH ×2 (09:18→19:41)
[2022-12-10] MEDS: cefTRIAXone SODIUM 2,000 MG in DEXTROSE 5% 50 ML IV SCH (10:19)
[2022-12-10] MEDS: FERROUS SULFATE 325 MG TAB PO SCH (10:19)
[2022-12-10] MEDS: MoRPHine SULFATE 4 MG/ML 1 ML CARP\\VIAL IV PRN ×2 (11:43→21:02)
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
[2022-12-10] MEDS: ONDANSETRON INJ 2 MG/ML 2 ML VIAL IV PRN (19:40)
[2022-12-10] MEDS ORDERED: POTASSIUM PHOS 3 MMOL/1 ML INFUSION IV STA (21:10)
[2022-12-10] MEDS ORDERED: POTASSIUM PHOSPHATE 15 MMOL in SODIUM CHLORIDE 0.9% 250 ML IV ONE (21:30)
[2022-12-11] MEDS: ONDANSETRON INJ 2 MG/ML 2 ML VIAL IV PRN ×2 (01:36→20:53)
[2022-12-11] MEDS ORDERED: chlordiazePOXIDE ALCOHOL WITHDRAWL 25MG PO STA (03:55)
[2022-12-11] MEDS ORDERED: LORazepam 2 MG/1 ML VIAL IV PRN (03:56)
[2022-12-11] MEDS ORDERED: Ativan IV Alcohol Withdrawal--Active Protocol IV PRN (03:56)
--- NOTE | 2022-12-11 03:57 | Communication Note ---
Date of Service: December 11, 2022 Patient distressed by visual and auditory hallucinations despite gabapentin taper as per AWSS protocol. Utilize Librium taper in place of gabapentin for now
[2022-12-11] MEDS: chlordiazePOXIDE HCl 25 MG CAP PO SCH ×4 (04:19→22:35)
[2022-12-11 05:16] LABS: Basophils # (auto) 0.02 K/uL (0.00-0.20); Basophils % (auto) 0.3 %; Eosinophils # (auto) 0.02 K/uL (0.00-0.50); Eosinophils % (auto) 0.3 %; Hemoglobin 11.1 g/dl (12.0-16.0); Immature Granulocytes # (auto) 0.03 K/uL (0.01-0.20); Immature Granulocytes % (auto) 0.4 %; Lymphocytes # (auto) 0.35 K/uL (1.20-3.40); Lymphocytes % (auto) 5.1 %; Mean Corpuscular Hemoglobin 35.1 pg (25.0-34.0); Mean Corpuscular Hgb Conc 33.6 g/dL (32.0-36.0); Mean Corpuscular Volume 104.4 fL (80.0-100.0); Mean Platelet Volume 10.5 fL (9.4-12.4); Monocytes # (auto) 0.47 K/uL (0.11-0.59); Monocytes % (auto) 6.9 %; Neutrophils # (auto) 5.93 K/uL (1.40-6.50); Platelet Count 76 K/uL (130-400); RDW Coefficient of Variation 14.4 % (11.5-14.5); RDW Standard Deviation 55.5 fL (36.4-46.3); Red Blood Count 3.16 M/uL (4.20-5.40); White Blood Count 6.82 K/ul (4.8-10.8)
[2022-12-11 05:40] LABS: Albumin Globulin Ratio 0.8 (0.9-2); Albumin Level 2.9 gm/dl (3.4-5.0); BUN Creatinine Ratio 15.2 (10-20); Bilirubin,Total 1.3 mg/dl (0.2-1.0); Calcium 8.1 mg/dl (8.6-10.3); Creatinine Clr Calc Pharmacy 143.9 ml/min; Est GFR (Non-African American) 110.4 ml/min; Globulin 3.5 gm/dl (2.5-4.0); Magnesium 1.8 mg/dl (1.7-2.4); Phosphorus 1.9 mg/dl (2.5-4.9); Potassium 3.6 mmol/L (3.5-5.1); Total Protein 6.4 gm/dl (6.0-8.3)
[2022-12-11] MEDS: LEVOTHYROXINE SODIUM 150 MCG TABLET PO SCH (05:52)
[2022-12-11] MEDS ORDERED: POTASSIUM PHOS 3 MMOL/1 ML INFUSION IV STA (08:27)
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
[2022-12-11] MEDS ORDERED: POTASSIUM PHOSPHATE 21 MMOL in SODIUM CHLORIDE 0.9% 500 ML IV ONE (08:30)
--- NOTE | 2022-12-11 09:02 | Ultrasound Report ---
ABDOMINAL ULTRASOUND TO ASSESS FOR ASCITES HISTORY: ascites, to evaluate need for paracentesis. COMPARISON: CT of the abdomen and pelvis December 08, 2022. TECHNIQUE: Sonography of the abdomen and pelvis was performed to assess for ascites. FINDINGS: Trace abdominal and pelvic ascites is noted. The amount of fluid is insufficient for parace ntesis. The liver is cirrhotic. Hepatic echogenicity is increased. Splenomegaly is again noted. IMPRESSION: Trace ascites, insufficient for paracentesis. ACT 112: Negative or not required by law. Electronically signed by: Heber Lugo M.D. 12/11/2022 9:00 AM
[2022-12-11] MEDS: SPIRONOLACTONE 25 MG TAB PO SCH (09:20)
[2022-12-11] MEDS: buPROPion XL 150 MG TABCR PO SCH (09:21)
[2022-12-11] MEDS: FOLIC ACID 1 MG TAB PO SCH (09:21)
[2022-12-11] MEDS: THIAMINE HCL 100 MG TAB PO SCH (09:21)
[2022-12-11] MEDS: CYANOCOBALAMIN (B-12) 500 MCG TABLET PO SCH (09:22)
[2022-12-11] MEDS: PANTOprazole 40 MG TAB PO SCH ×2 (09:22→20:52)
[2022-12-11] MEDS: MAGNESIUM OXIDE 400 MG TAB PO SCH ×2 (09:22→20:53)
[2022-12-11] MEDS: LACTULOSE SYRUP 10 GM/15 ML BTL 960 ML PO SCH ×3 (09:23→20:53)
[2022-12-11] MEDS: cefTRIAXone SODIUM 2,000 MG in DEXTROSE 5% 50 ML IV SCH (09:39)
[2022-12-11] MEDS: POT PHOSPHATE MONOBASIC W/ SOD TAB PO SCH ×4 (10:39→20:53)
[2022-12-11] MEDS: FERROUS SULFATE 325 MG TAB PO SCH (12:48)
[2022-12-11] MEDS: DOCUSATE SODIUM 100 MG CAP PO SCH ×2 (12:51→20:54)
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
[2022-12-11] MEDS: LORazepam 2 MG/1 ML VIAL IV PRN (20:54)
[2022-12-12] MEDS: LORazepam 2 MG/1 ML VIAL IV PRN ×3 (02:48→14:55)
[2022-12-12] MEDS ORDERED: LORazepam 2 MG/1 ML VIAL IV STA ×2 (05:21→10:30)
[2022-12-12] MEDS: chlordiazePOXIDE HCl 25 MG CAP PO SCH ×2 (05:31→13:19)
[2022-12-12] MEDS ORDERED: METOPROLOL TARTRATE 1 MG/ML VIAL IV STA (05:32)
[2022-12-12] MEDS: MAGNESIUM SULFATE / D5W 1 GM/100 ML BAG IV SCH ×2 (05:45→07:28)
[2022-12-12] MEDS: POTASSIUM CHLORIDE / WTR 10 MEQ/100 ML PLCT IV SCH ×4 (05:46→09:16)
[2022-12-12 06:04] LABS: Basophils # (auto) 0.02 K/uL (0.00-0.20); Basophils % (auto) 0.3 %; Eosinophils # (auto) 0.04 K/uL (0.00-0.50); Eosinophils % (auto) 0.6 %; Hematocrit (blood only) 33.8 % (37.0-47.0); Hemoglobin 11.7 g/dl (12.0-16.0); Immature Granulocytes # (auto) 0.03 K/uL (0.01-0.20); Immature Granulocytes % (auto) 0.5 %; Lymphocytes # (auto) 0.65 K/uL (1.20-3.40); Lymphocytes % (auto) 9.9 %; Mean Corpuscular Hemoglobin 35.2 pg (25.0-34.0); Mean Corpuscular Hgb Conc 34.6 g/dL (32.0-36.0); Mean Corpuscular Volume 101.8 fL (80.0-100.0); Mean Platelet Volume 9.6 fL (9.4-12.4); Monocytes # (auto) 0.93 K/uL (0.11-0.59); Monocytes % (auto) 14.1 %; Neutrophils # (auto) 4.92 K/uL (1.40-6.50); Neutrophils % (auto) 74.6 %; Platelet Count 98 K/uL (130-400); RDW Coefficient of Variation 14.4 % (11.5-14.5); RDW Standard Deviation 53.9 fL (36.4-46.3); Red Blood Count 3.32 M/uL (4.20-5.40); White Blood Count 6.59 K/ul (4.8-10.8)
[2022-12-12 06:16] LABS: Albumin Level 3.2 gm/dl (3.4-5.0); Bilirubin,Total 1.4 mg/dl (0.2-1.0); Calcium 8.3 mg/dl (8.6-10.3); Magnesium 1.8 mg/dl (1.7-2.4); Potassium 3.5 mmol/L (3.5-5.1)
[2022-12-12] MEDS: LEVOTHYROXINE SODIUM 150 MCG TABLET PO SCH (06:21)
[2022-12-12 06:22] LABS: BUN Creatinine Ratio 13.7 (10-20); Creatinine Clr Calc Pharmacy 123.9 ml/min; Est GFR (African American) 123.7 ml/min; Est GFR (Non-African American) 106.7 ml/min
[2022-12-12 06:26] LABS: Albumin Globulin Ratio 0.8 (0.9-2); Globulin 3.9 gm/dl (2.5-4.0); Phosphorus 1.5 mg/dl (2.5-4.9); Total Protein 7.1 gm/dl (6.0-8.3)
[2022-12-12] MEDS ORDERED: POTASSIUM PHOS 3 MMOL/1 ML INFUSION IV STA (06:34)
[2022-12-12 07:13] LABS: Folate (Folic Acid),Ser orPlas 18.06 ng/ml (>5.38)
[2022-12-12] MEDS: PANTOprazole 40 MG TAB PO SCH ×3 (08:41→20:17)
[2022-12-12] MEDS: buPROPion XL 150 MG TABCR PO SCH ×2 (08:41→08:51)
[2022-12-12] MEDS: POT PHOSPHATE MONOBASIC W/ SOD TAB PO SCH ×5 (08:41→20:17)
[2022-12-12] MEDS: CYANOCOBALAMIN (B-12) 500 MCG TABLET PO SCH ×2 (08:41→08:51)
[2022-12-12] MEDS: SPIRONOLACTONE 25 MG TAB PO SCH ×2 (08:41→08:51)
[2022-12-12] MEDS: FERROUS SULFATE 325 MG TAB PO SCH ×2 (08:41→08:51)
[2022-12-12] MEDS: FOLIC ACID 1 MG TAB PO SCH ×2 (08:41→08:51)
[2022-12-12] MEDS: MAGNESIUM OXIDE 400 MG TAB PO SCH ×3 (08:41→20:17)
[2022-12-12] MEDS: THIAMINE HCL 100 MG TAB PO SCH ×2 (08:42→08:51)
[2022-12-12] MEDS: LACTULOSE SYRUP 10 GM/15 ML BTL 960 ML PO SCH ×4 (08:42→20:17)
[2022-12-12] MEDS: DOCUSATE SODIUM 100 MG CAP PO SCH ×2 (08:51→20:17)
[2022-12-12] MEDS: cefTRIAXone SODIUM 2,000 MG in DEXTROSE 5% 50 ML IV SCH (09:27)
[2022-12-12] MEDS ORDERED: POTASSIUM PHOSPHATE 30 MMOL in SODIUM CHLORIDE 0.9% 500 ML IV SCH (09:45)
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
[2022-12-12] MEDS ORDERED: PHENobarbital sodium 65 MG/ML VIAL IV STA (16:50)
[2022-12-12] MEDS ORDERED: PHENobarbital PO Alcohol Withdrawal PO STA (16:54)
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
[2022-12-12] MEDS: PHENobarbital sodium 65 MG/ML VIAL IV SCH (20:27)
[2022-12-13] MEDS: PHENobarbital sodium 65 MG/ML VIAL IV SCH (00:05)
[2022-12-13] MEDS: PHENobarbital sodium 65 MG/ML VIAL IV PRN ×3 (02:54→17:45)
[2022-12-13] MEDS ORDERED: PLASMA-LYTE A 1,000 ML IV SCH (03:30)
[2022-12-13 04:29] LABS: Basophils # (auto) 0.03 K/uL (0.00-0.20); Basophils % (auto) 0.6 %; Eosinophils # (auto) 0.08 K/uL (0.00-0.50); Eosinophils % (auto) 1.5 %; Hematocrit (blood only) 34.7 % (37.0-47.0); Immature Granulocytes # (auto) 0.04 K/uL (0.01-0.20); Immature Granulocytes % (auto) 0.8 %; Lymphocytes # (auto) 0.98 K/uL (1.20-3.40); Lymphocytes % (auto) 18.5 %; Mean Corpuscular Hemoglobin 35.3 pg (25.0-34.0); Mean Corpuscular Hgb Conc 34.6 g/dL (32.0-36.0); Mean Corpuscular Volume 102.1 fL (80.0-100.0); Mean Platelet Volume 10.5 fL (9.4-12.4); Monocytes # (auto) 1.07 K/uL (0.11-0.59); Monocytes % (auto) 20.2 %; Neutrophils # (auto) 3.09 K/uL (1.40-6.50); Neutrophils % (auto) 58.4 %; Platelet Count 111 K/uL (130-400); RDW Coefficient of Variation 14.7 % (11.5-14.5); RDW Standard Deviation 55.5 fL (36.4-46.3); White Blood Count 5.29 K/ul (4.8-10.8)
[2022-12-13] MEDS: LEVOTHYROXINE SODIUM 150 MCG TABLET PO SCH (04:39)
[2022-12-13 04:42] LABS: Albumin Globulin Ratio 0.7 (0.9-2); Albumin Level 2.9 gm/dl (3.4-5.0); Bilirubin,Total 1.4 mg/dl (0.2-1.0); Calcium 8.3 mg/dl (8.6-10.3); Creatinine Clr Calc Pharmacy 154.1 ml/min; Est GFR (African American) 132.9 ml/min; Est GFR (Non-African American) 114.7 ml/min; Globulin 3.9 gm/dl (2.5-4.0); Magnesium 2.1 mg/dl (1.7-2.4); Phosphorus 2.8 mg/dl (2.5-4.9); Potassium 4.3 mmol/L (3.5-5.1); Total Protein 6.8 gm/dl (6.0-8.3)
[2022-12-13 04:53] LABS: INR 1.2 (0.9-1.1); Prothrombin Time 12.9 Seconds (9.0-12.0)
[2022-12-13] MEDS: cefTRIAXone SODIUM 2,000 MG in DEXTROSE 5 % MINI-B 50 ML IV SCH (08:04)
[2022-12-13] MEDS ORDERED: DEXTROSE 50% 50 ML SYRINGE IV PRN (08:13)
[2022-12-13] MEDS ORDERED: GLUCOSE 10 TAB/TUBE PO PRN (08:13)
[2022-12-13] MEDS ORDERED: GLUCAGON FOR INJ 1 MG VIAL SQ PRN (08:13)
[2022-12-13] MEDS ORDERED: GLUCOSE 40% GEL 15 GM TUBE PO PRN (08:13)
[2022-12-13] MEDS ORDERED: CARBOHYDRATES FOR HYPOGLYCEMIA PO PRN (08:13)
[2022-12-13] MEDS ORDERED: DEXTROSE 50% 50 ML SYRINGE IV ONE (08:14)
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
[2022-12-13] MEDS: CYANOCOBALAMIN (B-12) 500 MCG TABLET PO SCH (10:34)
[2022-12-13] MEDS: DOCUSATE SODIUM 100 MG CAP PO SCH ×2 (10:34→20:23)
[2022-12-13] MEDS: FOLIC ACID 1 MG TAB PO SCH (10:34)
[2022-12-13] MEDS: FERROUS SULFATE 325 MG TAB PO SCH (10:34)
[2022-12-13] MEDS: THIAMINE HCL 100 MG TAB PO SCH (10:35)
[2022-12-13] MEDS: POT PHOSPHATE MONOBASIC W/ SOD TAB PO SCH ×4 (10:35→20:23)
[2022-12-13] MEDS: MAGNESIUM OXIDE 400 MG TAB PO SCH ×2 (10:35→20:23)
[2022-12-13] MEDS: LACTULOSE SYRUP 10 GM/15 ML BTL 960 ML PO SCH ×3 (10:35→20:23)
[2022-12-13] MEDS: SPIRONOLACTONE 25 MG TAB PO SCH (10:35)
[2022-12-13] MEDS: PANTOprazole 40 MG TAB PO SCH ×2 (10:35→20:23)
[2022-12-13] MEDS: PHENobarbitaL 30 MG TAB PO SCH ×2 (12:00→23:16)
[2022-12-13] MEDS: D5W AND NSS 1,000 ML IV SCH (13:08)
[2022-12-13] MEDS ORDERED: PHENobarbitaL sodium 65 MG in SYRINGE 0 ML IV ONE (17:50)
[2022-12-13] MEDS ORDERED: PHENobarbital sodium 65 MG/ML VIAL IV ONE (18:00)
--- NOTE | 2022-12-13 19:36 | Critical Care Progress Note ---
Date of Service December 13, 2022 Assessment & Plan (1) DTs (delirium tremens): Plan: Impression: 57-year-old female with history of alcohol abuse, cirrhosis initially admitted to the hospital and undergoing treatment for sepsis with discitis/osteomyelitis along with UTI, now transferred to the ICU for refractory DTs undergoing treatment with IV phenobarbital. Neuro - Delirium tremenspatient with refractory DTs unresponsive to Ativan/Librium -Did have elevated acetaminophen level on admission and was initially on NAC per poison control recommendations which was since been DC'd -Initial alcohol 133 on admission to the ED 12/08 -Now admitted to ICU to undergo IV phenobarbital protocol for refractory DTs Depressioncontinue bupropion Cardiac - No history of cardiac disease. Hemodynamically stable. Continuous monitoring on telemetry Respiratory - Lungs clear to auscultation. No history of pulmonary disease. Currently maintaining oxygen saturation on room air. Continue end-tidal CO2 and pulse ox monitoring GI - Alcoholic cirrhosisLFTs stable, trace ascites on abdominal ultrasound. Continue to trend LFTs. Continue lactulose GERDPPI RENAL/LYTES - Creatinine within normal limits, monitor routine BMPs and replete electrolytes as indicated - Strict I's and O's ENDO - ICU hyperglycemic protocol Hypothyroidismcontinue Synthroid HEME - H&H stable, monitor routine CBC ID - SepsisCT evidence of discitis/osteomyelitis with 2 sets of blood cultures positive for Streptococcus mitis/oralis. Also undergoing treatment for UTI positive for E. coli -MRI without evidence of paraspinal or epidural abscess -Orthospine consult and patient poor candidate for surgical intervention and recommending medical management at this time -ID consulted recommended 6 weeks ceftriaxone, which was started on 12/09 -No growth on preliminary repeat blood cultures as of yet LINES/IV ACCESS - Peripheral IVs, will likely need PICC due to prolonged antibiotic therapy DVT PROPHYLAXIS - SCDs (2) Bacteremia: (3) Discitis: (4) Sepsis: (5) Osteomyelitis: (6) Hyperlipemia: (7) GERD (gastroesophageal reflux disease): (8) HTN (hypertension): (9) Hypothyroidism: Admission and Anticipated Discharge Date Admission Date: December 08, 2022 Supervising Physician Co-Signing Physician Notes I have personally spent 35 minutes of critical care time in the direct management of this patient. This is a life/limb threatening event. This includes time spent evaluating patient, direct bedside care, chart review, placing orders, interpretation of diagnostic studies, discussion with consultants, patient, and/or family members regarding treatment decisions, as well as other required patient management activities. This time is exclusive of all separately billable procedures, and teaching time and separate from and in addition to any other critical care service time. Subjective No overnight events, still restless however less impulsive per nursing staff Review of Systems Review of Systems: Unobtainable due to reduced consciousness Physical Exam Physical Exam: General: Awake. Disoriented. Skin: Warm, dry, Head: Atraumatic Ears, nose, mouth and throat: airway patent Cardiovascular: Normal peripheral perfusion Respiratory: no respiratory distress Gastrointestinal: Non distended Musculoskeletal: No deformity Results & Data Results & Data Vital Signs (Past 12 Hours) Vital Signs Temp Pulse Pulse Resp BP BP Pulse Ox 12/13/22 17:43 146/106 H 12/13/22 17:43 108 H 25 H 97 12/13/22 17:30 107 H 21 100 12/13/22 17:45 107 H 17 146/106 H 12/13/22 17:00 92 H 22 98 12/13/22 17:00 131/99 12/13/22 16:00 99 H 18 95 12/13/22 16:00 116/87 12/13/22 15:00 100 H 15 92 12/13/22 15:00 129/94 12/13/22 14:01 109 H 17 96 12/13/22 14:01 149/104 H 12/13/22 14:00 107 H 13 100 12/13/22 13:16 104 H 25 H 96 12/13/22 13:16 126/104 H 12/13/22 13:00 114 H 16 97 12/13/22 13:00 138/119 H 12/13/22 12:00 102 H 18 97 12/13/22 12:00 136/103 H 12/13/22 11:31 133/97 12/13/22 11:31 100 H 23 97 12/13/22 11:00 94 H 18 93 12/13/22 11:00 115/83 12/13/22 10:00 95 H 19 93 12/13/22 10:00 114/87 12/13/22 17:34 37 C 12/13/22 13:03 110 H 16 138/119 H 12/13/22 11:00 36.4 C L 105 H 24 136/102 H 95 12/13/22 09:00 110 H 24 96 12/13/22 09:00 138/101 H 12/13/22 08:00 109 H 21 100 O2 Del Method 12/13/22 17:43 12/13/22 17:43 12/13/22 17:30 12/13/22 17:45 12/13/22 17:00 12/13/22 17:00 12/13/22 16:00 12/13/22 16:00 12/13/22 15:00 12/13/22 15:00 12/13/22 14:01 12/13/22 14:01 12/13/22 14:00 12/13/22 13:16 12/13/22 13:16 12/13/22 13:00 12/13/22 13:00 12/13/22 12:00 12/13/22 12:00 12/13/22 11:31 12/13/22 11:31 12/13/22 11:00 12/13/22 11:00 12/13/22 10:00 12/13/22 10:00 12/13/22 17:34 12/13/22 13:03 12/13/22 11:00 Room Air 12/13/22 09:00 12/13/22 09:00 12/13/22 08:00 Critical Care Results & Data Vital Signs (Past 12 Hours) Vital Signs Temp Pulse Pulse Resp BP BP Pulse Ox 12/13/22 17:43 146/106 H 12/13/22 17:43 108 H 25 H 97 12/13/22 17:30 107 H 21 100 12/13/22 17:45 107 H 17 146/106 H 12/13/22 17:00 92 H 22 98 12/13/22 17:00 131/99 12/13/22 16:00 99 H 18 95 12/13/22 16:00 116/87 12/13/22 15:00 100 H 15 92 12/13/22 15:00 129/94 12/13/22 14:01 109 H 17 96 12/13/22 14:01 149/104 H 12/13/22 14:00 107 H 13 100 12/13/22 13:16 104 H 25 H 96 12/13/22 13:16 126/104 H 12/13/22 13:00 114 H 16 97 12/13/22 13:00 138/119 H 12/13/22 12:00 102 H 18 97 12/13/22 12:00 136/103 H 12/13/22 11:31 133/97 12/13/22 11:31 100 H 23 97 12/13/22 11:00 94 H 18 93 12/13/22 11:00 115/83 12/13/22 10:00 95 H 19 93 12/13/22 10:00 114/87 12/13/22 17:34 37 C 12/13/22 13:03 110 H 16 138/119 H 12/13/22 11:00 36.4 C L 105 H 24 136/102 H 95 12/13/22 09:00 110 H 24 96 12/13/22 09:00 138/101 H 12/13/22 08:00 109 H 21 100 O2 Del Method 12/13/22 17:43 12/13/22 17:43 12/13/22 17:30 12/13/22 17:45 12/13/22 17:00 12/13/22 17:00 12/13/22 16:00 12/13/22 16:00 12/13/22 15:00 12/13/22 15:00 12/13/22 14:01 12/13/22 14:01 12/13/22 14:00 12/13/22 13:16 12/13/22 13:16 12/13/22 13:00 12/13/22 13:00 12/13/22 12:00 12/13/22 12:00 12/13/22 11:31 12/13/22 11:31 12/13/22 11:00 12/13/22 11:00 12/13/22 10:00 12/13/22 10:00 12/13/22 17:34 12/13/22 13:03 12/13/22 11:00 Room Air 12/13/22 09:00 12/13/22 09:00 12/13/22 08:00 Lab & Micro Results (Past 24 Hours) RBC 3.40 M/uL (4.20-5.40) L 12/13/22 WBC 5.29 K/ul (4.8-10.8) 12/13/22 Hgb 12.0 g/dl (12.0-16.0) 12/13/22 Hct 34.7 % (37.0-47.0) L 12/13/22 MCV 102.1 fL (80.0-100.0) H 12/13/22 MCH 35.3 pg (25.0-34.0) H 12/13/22 MCHC 34.6 g/dL (32.0-36.0) 12/13/22 RDW Standard Deviation 55.5 fL (36.4-46.3) H 12/13/22 RDW Coefficient of Variation 14.7 % (11.5-14.5) H 12/13/22 Plt Count 111 K/uL (130-400) L 12/13/22 MPV 10.5 fL (9.4-12.4) 12/13/22 Neutrophils (%) (Auto) 58.4 % 12/13/22 Lymphocytes (%) (Auto) 18.5 % 12/13/22 Monocytes # (Auto) 1.07 K/uL (0.11-0.59) H 12/13/22 Eosinophils # (Auto) 0.08 K/uL (0.00-0.50) 12/13/22 Immature Granulocyte % (Auto) 0.8 % 12/13/22 Neutrophils # (Auto) 3.09 K/uL (1.40-6.50) 12/13/22 Lymphocytes # (Auto) 0.98 K/uL (1.20-3.40) L 12/13/22 Monocytes # (Auto) 1.07 K/uL (0.11-0.59) H 12/13/22 Eosinophils # (Auto) 0.08 K/uL (0.00-0.50) 12/13/22 Basophils # (Auto) 0.03 K/uL (0.00-0.20) 12/13/22 Immature Granulocyte # (Auto) 0.04 K/uL (0.01-0.20) 3 Na 131 mmol/L (136-145) L 12/13/22 K 4.3 mmol/L (3.5-5.1) 12/13/22 Cl 101 mmol/L (98-107) 12/13/22 CO2 22 mmol/L (21-32) 12/13/22 Anion Gap 8 (3-11) 12/13/22 BUN 9 mg/dl (6-23) 12/13/22 Creatinine 0.41 mg/dl (0.6-1.2) L 12/13/22 Estimated GFR ( Amer) 132.9 ml/min 12/13/22 Estimated GFR (Non-Af Amer) 114.7 ml/min 12/13/22 BUN/Creatinine Ratio 22.0 (10-20) H 12/13/22 Glu 69 mg/dl (70-99(Fasting)) L 12/13/22 Ca 8.3 mg/dl (8.6-10.3) L 12/13/22 Phosphorus Level 2.8 mg/dl (2.5-4.9) 12/13/22 Total Bilirubin 1.4 mg/dl (0.2-1.0) H 12/13/22 AST 31 U/L (13-39) 12/13/22 ALT 11 U/L (7-52) 12/13/22 Alkaline Phosphatase 125 U/L (34-104) H 12/13/22 TP 6.8 gm/dl (6.0-8.3) 12/13/22 Albumin 2.9 gm/dl (3.4-5.0) L 12/13/22 Globulin 3.9 gm/dl (2.5-4.0) 12/13/22 Albumin/Globulin Ratio 0.7 (0.9-2) L 12/13/22 Mg 2.1 mg/dl (1.7-2.4) 12/13/22 04:02 Calcium Level 8.3 mg/dl (8.6-10.3) L 12/13/22 04:02 Ionized Calcium 1.12 mmol/L (1.12-1.32) 12/13/22 04:02 Prothromb Time International Ratio 1.2 (0.9-1.1) H 12/13/22 04 :02 I & O Totals 24 Hours 12/12/22 12/13/22 12/14/22 06:59 06:59 06:59 Intake Total 637 / 637 1233.4615 / 1233.4615 1050 / 1050 Output Total 625 / 625 Balance 12 / 12 1233.4615 / 1233.4615 1050 / 1050 Cumulative 12/08/22 14:10 thru 12/13/22 14:00 Intake Total 54776.7945 Output Total 3575 Balance 7010.7945 RT Ventilator Mngmt (Last Documented) Ventilator Ordered Settings Respiratory Rate 17 12/13/22 17:45 Ventilator - PT Measurements Respiratory Rate 17 Coding Level of Care Code 65949 CRITICAL CARE 1ST 30-74M Diagnoses DTs (delirium tremens) F10.931 Bacteremia R78.81 Discitis M46.46 Spinal region: lumbar Sepsis A41.9 Osteomyelitis M86.9 Laterality: unspecified laterality Osteomyelitis type: unspecified type Hyperlipemia E78.5 Hyperlipidemia type: unspecified GERD (gastroesophageal reflux disease) K21.9 Esophagitis presence: esophagitis presence not specified HTN (hypertension) I10 Hypertension type: essential hypertension Hypothyroidism E03.9 Hypothyroidism type: unspecified (3) Discitis Spinal region: lumbar Qualified Code(s): M46.46 - Discitis, unspecified, lumbar region (5) Osteomyelitis Laterality: unspecified laterality Osteomyelitis type: unspecified type (6) Hyperlipemia Hyperlipidemia type: unspecified Qualified Code(s): E78.5 - Hyperlipidemia, unspecified (7) GERD (gastroesophageal reflux disease) Esophagitis presence: esophagitis presence not specified Qualified Code(s): K21.9 - Gastro-esophageal reflux disease without esophagitis (8) HTN (hypertension) Hypertension type: essential hypertension Qualified Code(s): I10 - Essential (primary) hypertension (9) Hypothyroidism Hypothyroidism type: unspecified Qualified Code(s): E03.9 - Hypothyroidism, unspecified
[2022-12-13] MEDS: ONDANSETRON INJ 2 MG/ML 2 ML VIAL IV PRN (21:21)
[2022-12-13] MEDS ORDERED: PHENOBARBITAL IM ONE (23:15)
[2022-12-14] MEDS: D5W AND NSS 1,000 ML IV SCH ×2 (00:45→13:50)
[2022-12-14 04:40] LABS: Albumin Globulin Ratio 0.8 (0.9-2); BUN Creatinine Ratio 9.4 (10-20); Bilirubin,Total 1.3 mg/dl (0.2-1.0); Calcium 8.1 mg/dl (8.6-10.3); Creatinine Clr Calc Pharmacy 117.4 ml/min; Est GFR (African American) 122.2 ml/min; Est GFR (Non-African American) 105.4 ml/min; Magnesium 1.8 mg/dl (1.7-2.4); Phosphorus 2.2 mg/dl (2.5-4.9); Potassium 3.5 mmol/L (3.5-5.1)
[2022-12-14 04:48] LABS: INR 1.2 (0.9-1.1); Prothrombin Time 13.3 Seconds (9.0-12.0)
[2022-12-14 04:49] LABS: Basophils # (auto) 0.05 K/uL (0.00-0.20); Basophils % (auto) 1.1 %; Eosinophils # (auto) 0.16 K/uL (0.00-0.50); Eosinophils % (auto) 3.5 %; Hemoglobin 12.7 g/dl (12.0-16.0); Immature Granulocytes # (auto) 0.07 K/uL (0.01-0.20); Immature Granulocytes % (auto) 1.5 %; Lymphocytes # (auto) 1.14 K/uL (1.20-3.40); Lymphocytes % (auto) 25.1 %; Mean Corpuscular Hemoglobin 34.7 pg (25.0-34.0); Mean Corpuscular Hgb Conc 33.4 g/dL (32.0-36.0); Mean Corpuscular Volume 103.8 fL (80.0-100.0); Mean Platelet Volume 10.8 fL (9.4-12.4); Monocytes # (auto) 1.05 K/uL (0.11-0.59); Monocytes % (auto) 23.1 %; Neutrophils # (auto) 2.07 K/uL (1.40-6.50); Neutrophils % (auto) 45.7 %; Platelet Count 142 K/uL (130-400); Platelet Estimate Normal (Normal); Polychromasia 1+; RDW Coefficient of Variation 14.9 % (11.5-14.5); RDW Standard Deviation 57.3 fL (36.4-46.3); Red Blood Count 3.66 M/uL (4.20-5.40); White Blood Count 4.54 K/ul (4.8-10.8)
[2022-12-14] MEDS ORDERED: POTASSIUM PHOS 3 MMOL/1 ML INFUSION IV STA (06:15)
[2022-12-14] MEDS: MAGNESIUM SULFATE / D5W 1 GM/100 ML BAG IV SCH ×2 (06:38→08:41)
[2022-12-14] MEDS: LEVOTHYROXINE SODIUM 150 MCG TABLET PO SCH (06:38)
[2022-12-14] MEDS ORDERED: POTASSIUM PHOSPHATE 24 MMOL in SODIUM CHLORIDE 0.9% 500 ML IV ONE (07:00)
[2022-12-14] MEDS: FERROUS SULFATE 325 MG TAB PO SCH (08:45)
[2022-12-14] MEDS: THIAMINE HCL 100 MG TAB PO SCH (08:45)
[2022-12-14] MEDS: FOLIC ACID 1 MG TAB PO SCH (08:46)
[2022-12-14] MEDS: PANTOprazole 40 MG TAB PO SCH (08:46)
[2022-12-14] MEDS: POT PHOSPHATE MONOBASIC W/ SOD TAB PO SCH ×3 (08:46→16:28)
[2022-12-14] MEDS: SPIRONOLACTONE 25 MG TAB PO SCH (08:46)
[2022-12-14] MEDS: MAGNESIUM OXIDE 400 MG TAB PO SCH (08:46)
[2022-12-14] MEDS: CYANOCOBALAMIN (B-12) 500 MCG TABLET PO SCH (08:47)
[2022-12-14] MEDS: LACTULOSE SYRUP 10 GM/15 ML BTL 960 ML PO SCH ×2 (08:48→16:28)
[2022-12-14] MEDS: DOCUSATE SODIUM 100 MG CAP PO SCH (08:49)
[2022-12-14] MEDS: cefTRIAXone SODIUM 2,000 MG in DEXTROSE 5 % MINI-B 50 ML IV SCH (09:14)
--- NOTE | 2022-12-14 09:57 | Critical Care Progress Note ---
Date of Service December 14, 2022 Assessment & Plan (1) DTs (delirium tremens): Plan: Impression: 57-year-old female with history of alcohol abuse, cirrhosis initially admitted to the hospital and undergoing treatment for sepsis with discitis/osteomyelitis along with UTI, now transferred to the ICU for refractory DTs undergoing treatment with phenobarbital. Neuro - Delirium tremenspatient with refractory DTs unresponsive to Ativan/Librium: Improving -Did have elevated acetaminophen level on admission and was initially on NAC per poison control recommendations which was since been DC'd -Initial alcohol 133 on admission to the ED 12/08 -Now admitted to ICU to undergo phenobarbital protocol for refractory DTs -Now taking oral phenobarbital Depressioncontinue bupropion Cardiac - No history of cardiac disease. Hemodynamically stable. Continuous monitoring on telemetry Respiratory - Lungs clear to auscultation. No history of pulmonary disease. Currently maintaining oxygen saturation on room air. Continue end-tidal CO2 and pulse ox monitoring GI - Alcoholic cirrhosisLFTs stable, trace ascites on abdominal ultrasound. Continue to trend LFTs. Continue lactulose -Low-sodium diet GERDPPI RENAL/LYTES - Creatinine within normal limits, monitor routine BMPs and replete electrolytes as indicated -Continue maintenance fluids D5 NS at 80 mils per hour as patient not taking adequate p.o. at this time: Anticipate discontinuation tomorrow ENDO - ICU hyperglycemic protocol Hypothyroidismcontinue Synthroid HEME - H&H stable, monitor routine CBC ID - SepsisCT evidence of discitis/osteomyelitis with 2 sets of blood cultures posit olivia for Streptococcus mitis/oralis. Also undergoing treatment for UTI positive for E. coli -MRI without evidence of paraspinal or epidural abscess -Orthospine consult and patient poor candidate for surgical intervention and recommending medical management at this time -ID consulted recommended 6 weeks ceftriaxone, which was started on 12/09 -No growth on preliminary repeat blood cultures as of yet LINES/IV ACCESS - Peripheral IVs, DVT PROPHYLAXIS - SCDs Acute agitated delirium has resolved patient would be stable for downgrade out of ICU. (2) Bacteremia: (3) Discitis: (4) Sepsis: (5) Osteomyelitis: (6) Hyperlipemia: (7) GERD (gastroesophageal reflux disease): (8) HTN (hypertension): (9) Hypothyroidism: Admission and Anticipated Discharge Date Admission Date: December 08, 2022 Subjective No overnight events, less restless and imulsive Physical Exam Physical Exam: General: Awake. Disoriented, yet redirectable Skin: Warm, dry, Head: Atraumatic Ears, nose, mouth and throat: airway patent Cardiovascular: Normal peripheral perfusion Respiratory: no respiratory distress Gastrointestinal: Non distended Musculoskeletal: No deformity Results & Data Results & Data Vital Signs (Past 12 Hours) Vital Signs Temp Pulse Resp BP Pulse Ox 12/14/22 09:00 105 H 28 H 100 12/14/22 09:00 140/110 H 12/14/22 08:36 107 H 18 98 12/14/22 08:36 147/103 H 12/14/22 08:30 100 12/14/22 08:00 100 H 18 96 12/14/22 08:00 128/100 12/14/22 07:30 97 H 14 96 12/14/22 07:00 94 H 13 92 12/14/22 07:00 101/78 12/14/22 08:30 36.7 C 12/14/22 06:30 93 H 14 94 12/14/22 06:00 99 H 17 127/79 95 12/14/22 05:30 107 H 21 97 12/14/22 05:00 135 H 17 159/114 H 98 12/14/22 04:30 108 H 32 H 95 12/14/22 04:00 101 H 19 135/101 H 96 12/14/22 03:30 104 H 17 94 12/14/22 03:01 107 H 26 H 145/81 H 89 L 12/14/22 03:00 108 H 18 98 12/14/22 02:30 106 H 27 H 94 12/14/22 02:00 98 H 18 118/87 97 12/14/22 01:30 100 H 13 95 12/14/22 01:00 102 H 18 108/84 93 12/14/22 00:30 100 H 18 94 12/14/22 00:02 99 H 34 H 114/81 100 12/14/22 00:00 98 H 31 H 93 12/13/22 23:34 104 H 21 140/100 12/14/22 03:00 36.5 C 12/14/22 01:21 111 H 12/13/22 23:30 106 H 20 12/13/22 23:00 108 H 23 90 12/13/22 22:30 107 H 21 98 12/13/22 22:00 108 H 41 H 143/100 H 94 12/13/22 23:34 37.5 C Critical Care Results & Data Vital Signs (Past 12 Hours) Vital Signs Temp Pulse Resp BP Pulse Ox O2 Del Method 12/14/22 13:30 96 H 32 H 97 12/14/22 13:00 100 12/14/22 13:00 141/87 H 12/14/22 12:30 101 H 16 96 12/14/22 12:00 108 H 19 89 L 12/14/22 12:00 159/109 H 12/14/22 11:00 102 H 23 12/14/22 11:00 133/111 H 12/14/22 10:00 108 H 16 96 12/14/22 10:00 159/136 H 12/14/22 08:00 Room Air 12/14/22 10:39 36.6 C 12/14/22 09:00 105 H 28 H 100 12/14/22 09:00 140/110 H 12/14/22 08:36 107 H 18 98 12/14/22 08:36 147/103 H 12/14/22 08:30 100 12/14/22 08:00 100 H 18 96 12/14/22 08:00 128/100 12/14/22 07:30 97 H 14 96 12/14/22 07:00 94 H 13 92 12/14/22 07:00 101/78 12/14/22 08:30 36.7 C 12/14/22 06:30 93 H 14 94 12/14/22 06:00 99 H 17 127/79 95 12/14/22 05:30 107 H 21 97 12/14/22 05:00 135 H 17 159/114 H 98 12/14/22 04:30 108 H 32 H 95 12/14/22 04:00 101 H 19 135/101 H 96 12/14/22 03:30 104 H 17 94 12/14/22 03:01 107 H 26 H 145/81 H 89 L 12/14/22 03:00 108 H 18 98 12/14/22 03:00 36.5 C Lab & Micro Results (Past 24 Hours) RBC 3.66 M/uL (4.20-5.40) L 12/14/22 WBC 4.54 K/ul (4.8-10.8) L 12/14/22 Hgb 12.7 g/dl (12.0-16.0) 12/14/22 Hct 38.0 % (37.0-47.0) 12/14/22 MCV 103.8 fL (80.0-100.0) H 12/14/22 MCH 34.7 pg (25.0-34.0) H 12/14/22 MCHC 33.4 g/dL (32.0-36.0) 12/14/22 RDW Standard Deviation 57.3 fL (36.4-46.3) H 12/14/22 RDW Coefficient of Variation 14.9 % (11.5-14.5) H 12/14/22 Plt Count 142 K/uL (130-400) 12/14/22 MPV 10.8 fL (9.4-12.4) 12/14/22 Neutrophils (%) (Auto) 45.7 % 12/14/22 Lymphocytes (%) (Auto) 25.1 % 12/14/22 Monocytes # (Auto) 1.05 K/uL (0.11-0.59) H 12/14/22 Eosinophils # (Auto) 0.16 K/uL (0.00-0.50) 12/14/22 Immature Granulocyte % (Auto) 1.5 % 12/14/22 Neutrophils # (Auto) 2.07 K/uL (1.40-6.50) 12/14/22 Lymphocytes # (Auto) 1.14 K/uL (1.20-3.40) L 12/14/22 Monocytes # (Auto) 1.05 K/uL (0.11-0.59) H 12/14/22 Eosinophils # (Auto) 0.16 K/uL (0.00-0.50) 12/14/22 Basophils # (Auto) 0.05 K/uL (0.00-0.20) 12/14/22 Immature Granulocyte # (Auto) 0.07 K/uL (0.01-0.20) 3 Polychromasia 1+ 12/14/22 Na 132 mmol/L (136-145) L 12/14/22 K 3.5 mmol/L (3.5-5.1) 12/14/22 Cl 102 mmol/L (98-107) 12/14/22 CO2 25 mmol/L (21-32) 12/14/22 Anion Gap 5 (3-11) 12/14/22 BUN 5 mg/dl (6-23) L 12/14/22 Creatinine 0.53 mg/dl (0.6-1.2) L 12/14/22 Estimated GFR ( Amer) 122.2 ml/min 12/14/22 Estimated GFR (Non-Af Amer) 105.4 ml/min 12/14/22 BUN/Creatinine Ratio 9.4 (10-20) L 12/14/22 Glu 95 mg/dl (70-99(Fasting)) 12/14/22 Ca 8.1 mg/dl (8.6-10.3) L 12/14/22 Phosphorus Level 2.2 mg/dl (2.5-4.9) L 12/14/22 Total Bilirubin 1.3 mg/dl (0.2-1.0) H 12/14/22 AST 24 U/L (13-39) 12/14/22 ALT 9 U/L (7-52) 12/14/22 Alkaline Phosphatase 116 U/L (34-104) H 12/14/22 TP 7.0 gm/dl (6.0-8.3) 12/14/22 Albumin 3.0 gm/dl (3.4-5.0) L 12/14/22 Globulin 4.0 gm/dl (2.5-4.0) 12/14/22 Albumin/Globulin Ratio 0.8 (0.9-2) L 12/14/22 Mg 1.8 mg/dl (1.7-2.4) 12/14/22 03:52 Calcium Level 8.1 mg/dl (8.6-10.3) L 12/14/22 03:52 Ionized Calcium 1.15 mmol/L (1.12-1.32) 12/14/22 03:52 Prothromb Time International Ratio 1.2 (0.9-1.1) H 12/14/22 03 :52 I & O Totals 24 Hours 12/13/22 12/14/22 12/15/22 06:59 06:59 06:59 Intake Total 1233.4615 / 1233.4615 1979.333 / 1900.354 8591 / 1858 Output Total 400 / 400 Balance 1233.4615 / 1233.4615 1458 / 1458 Cumulative 12/08/22 14:10 thru 12/14/22 14:00 Intake Total 82390.1275 Output Total 3975 Balance 9398.1275 RT Ventilator Mngmt (Last Documented) Ventilator Ordered Settings Respiratory Rate 32 12/14/22 13:30 Ventilator - PT Measurements Respiratory Rate 32 Coding Level of Care Code 50887 SUB INP/OBS CARE 3/50MIN Diagnoses DTs (delirium tremens) F10.931 Bacteremia R78.81 Discitis M46.46 Spinal region: lumbar Sepsis A41.9 Osteomyelitis M86.9 Laterality: unspecified laterality Osteomyelitis type: unspecified type Hyperlipemia E78.5 Hyperlipidemia type: unspecified GERD (gastroesophageal reflux disease) K21.9 Esophagitis presence: esophagitis presence not specified HTN (hypertension) I10 Hypertension type: essential hypertension Hypothyroidism E03.9 Hypothyroidism type: unspecified (3) Discitis Spinal region: lumbar Qualified Code(s): M46.46 - Discitis, unspecified, lumbar region (5) Osteomyelitis Laterality: unspecified laterality Osteomyelitis type: unspecified type (6) Hyperlipemia Hyperlipidemia type: unspecified Qualified Code(s): E78.5 - Hyperlipidemia, unspecified (7) GERD (gastroesophageal reflux disease) Esophagitis presence: esophagitis presence not specified Qualified Code(s): K21.9 - Gastro-esophageal reflux disease without esophagitis (8) HTN (hypertension) Hypertension type: essential hypertension Qualified Code(s): I10 - Essential (primary) hypertension (9) Hypothyroidism Hypothyroidism type: unspecified Qualified Code(s): E03.9 - Hypothyroidism, unspecified
[2022-12-14] MEDS ORDERED: chlordiazePOXIDE HCl 5 MG CAP PO SCH (10:00)
[2022-12-14] MEDS: PHENobarbitaL 30 MG TAB PO SCH ×2 (10:24→23:59)
[2022-12-14] MEDS: ENOXAPARIN INJ 40 MG/0.4 ML SYR SQ SCH (11:45)
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
[2022-12-14] MEDS ORDERED: TROLAMINE SALICYLATE 10% CRM 255 APPLN/85 GM TUBE EXT PRN (16:45)
[2022-12-14] MEDS: LIDOCAINE 5% 1 PATCH TD PRN (20:28)
[2022-12-15] MEDS: DOCUSATE SODIUM 100 MG CAP PO SCH ×3 (00:02→23:31)
[2022-12-15] MEDS: MAGNESIUM OXIDE 400 MG TAB PO SCH ×3 (00:03→20:16)
[2022-12-15] MEDS: PANTOprazole 40 MG TAB PO SCH ×3 (00:03→20:16)
[2022-12-15] MEDS: LACTULOSE SYRUP 10 GM/15 ML BTL 960 ML PO SCH ×4 (00:03→20:16)
[2022-12-15] MEDS: POT PHOSPHATE MONOBASIC W/ SOD TAB PO SCH ×5 (00:03→20:16)
[2022-12-15] MEDS: D5W AND NSS 1,000 ML IV SCH ×2 (04:15→16:01)
[2022-12-15] MEDS: LEVOTHYROXINE SODIUM 150 MCG TABLET PO SCH (06:26)
[2022-12-15 06:31] LABS: Basophils % (auto) 1.2 %; Eosinophils % (auto) 3.5 %; Hematocrit (blood only) 35.1 % (37.0-47.0); Hemoglobin 11.8 g/dl (12.0-16.0); Lymphocytes % (auto) 25.1 %; Mean Corpuscular Hemoglobin 34.7 pg (25.0-34.0); Mean Corpuscular Hgb Conc 33.6 g/dL (32.0-36.0); Mean Corpuscular Volume 103.2 fL (80.0-100.0); Mean Platelet Volume 10.5 fL (9.4-12.4); Monocytes % (auto) 17.7 %; Neutrophils % (auto) 51.3 %; Platelet Count 164 K/uL (130-400); RDW Coefficient of Variation 14.8 % (11.5-14.5); RDW Standard Deviation 56.1 fL (36.4-46.3); White Blood Count 4.02 K/ul (4.8-10.8)
[2022-12-15 06:32] LABS: Basophils # (auto) 0.05 K/uL (0.00-0.20); Eosinophils # (auto) 0.14 K/uL (0.00-0.50); Immature Granulocytes # (auto) 0.05 K/uL (0.01-0.20); Immature Granulocytes % (auto) 1.2 %; Lymphocytes # (auto) 1.01 K/uL (1.20-3.40); Monocytes # (auto) 0.71 K/uL (0.11-0.59); Neutrophils # (auto) 2.06 K/uL (1.40-6.50)
[2022-12-15] MEDS ORDERED: MoRPHine SULFATE 4 MG/ML 1 ML CARP\\VIAL IV STA (06:32)
[2022-12-15 06:49] LABS: Albumin Globulin Ratio 0.8 (0.9-2); BUN Creatinine Ratio 6.5 (10-20); Bilirubin,Total 1.2 mg/dl (0.2-1.0); Calcium 8.1 mg/dl (8.6-10.3); Creatinine Clr Calc Pharmacy 135.6 ml/min; Est GFR (Non-African American) 110.4 ml/min; Globulin 3.7 gm/dl (2.5-4.0); Magnesium 1.9 mg/dl (1.7-2.4); Phosphorus 2.8 mg/dl (2.5-4.9); Potassium 3.7 mmol/L (3.5-5.1); Total Protein 6.7 gm/dl (6.0-8.3)
[2022-12-15 07:00] LABS: INR 1.2 (0.9-1.1); Prothrombin Time 13.3 Seconds (9.0-12.0)
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
[2022-12-15] MEDS: buPROPion XL 150 MG TABCR PO SCH (09:30)
[2022-12-15] MEDS: SPIRONOLACTONE 25 MG TAB PO SCH (09:30)
[2022-12-15] MEDS: CYANOCOBALAMIN (B-12) 500 MCG TABLET PO SCH (09:31)
[2022-12-15] MEDS: FOLIC ACID 1 MG TAB PO SCH (09:33)
[2022-12-15] MEDS: ENOXAPARIN INJ 40 MG/0.4 ML SYR SQ SCH (09:33)
[2022-12-15] MEDS: cefTRIAXone SODIUM 2,000 MG in DEXTROSE 5 % MINI-B 50 ML IV SCH (13:08)
[2022-12-15] MEDS: THIAMINE HCL 100 MG TAB PO SCH (13:19)
[2022-12-15] MEDS: traMADol HCL 50 MG TABLET PO PRN (15:29)
[2022-12-15] MEDS: ACETAMINOPHEN 500 MG TAB PO SCH ×2 (16:00→23:53)
[2022-12-15] MEDS ORDERED: PHENobarbitaL 30 MG TAB PO SCH (23:00)
[2022-12-15] MEDS: ONDANSETRON INJ 2 MG/ML 2 ML VIAL IV PRN (23:53)
[2022-12-16] MEDS: traMADol HCL 50 MG TABLET PO PRN ×2 (04:38→12:45)
[2022-12-16] MEDS: D5W AND NSS 1,000 ML IV SCH ×2 (04:38→17:47)
[2022-12-16] MEDS: LEVOTHYROXINE SODIUM 150 MCG TABLET PO SCH (05:48)
[2022-12-16 06:00] LABS: Hematocrit (blood only) 35.1 % (37.0-47.0); Hemoglobin 11.8 g/dl (12.0-16.0); Mean Corpuscular Hemoglobin 34.8 pg (25.0-34.0); Mean Corpuscular Hgb Conc 33.6 g/dL (32.0-36.0); Mean Corpuscular Volume 103.5 fL (80.0-100.0); Mean Platelet Volume 10.4 fL (9.4-12.4); Platelet Count 154 K/uL (130-400); RDW Coefficient of Variation 14.5 % (11.5-14.5); Red Blood Count 3.39 M/uL (4.20-5.40); White Blood Count 3.82 K/ul (4.8-10.8)
[2022-12-16 06:10] LABS: BUN Creatinine Ratio 8.1 (10-20); Calcium 8.1 mg/dl (8.6-10.3); Creatinine Clr Calc Pharmacy 168.5 ml/min; Est GFR (African American) 137.5 ml/min; Est GFR (Non-African American) 118.6 ml/min; Magnesium 1.7 mg/dl (1.7-2.4); Phosphorus 2.9 mg/dl (2.5-4.9); Potassium 3.4 mmol/L (3.5-5.1)
[2022-12-16] MEDS: ACETAMINOPHEN 500 MG TAB PO SCH ×3 (07:45→23:03)
[2022-12-16] MEDS: cefTRIAXone SODIUM 2,000 MG in DEXTROSE 5 % MINI-B 50 ML IV SCH (09:19)
[2022-12-16] MEDS: CYANOCOBALAMIN (B-12) 500 MCG TABLET PO SCH (09:20)
[2022-12-16] MEDS: buPROPion XL 150 MG TABCR PO SCH (09:20)
[2022-12-16] MEDS: MAGNESIUM OXIDE 400 MG TAB PO SCH ×2 (09:20→22:00)
[2022-12-16] MEDS: POT PHOSPHATE MONOBASIC W/ SOD TAB PO SCH ×3 (09:20→17:23)
[2022-12-16] MEDS: SPIRONOLACTONE 25 MG TAB PO SCH (09:20)
[2022-12-16] MEDS: LACTULOSE SYRUP 10 GM/15 ML BTL 960 ML PO SCH ×3 (09:20→21:59)
[2022-12-16] MEDS: PANTOprazole 40 MG TAB PO SCH ×2 (09:20→22:01)
[2022-12-16] MEDS: THIAMINE HCL 100 MG TAB PO SCH (09:20)
[2022-12-16] MEDS: FOLIC ACID 1 MG TAB PO SCH (09:20)
[2022-12-16] MEDS: ENOXAPARIN INJ 40 MG/0.4 ML SYR SQ SCH (09:21)
[2022-12-16] MEDS: DOCUSATE SODIUM 100 MG CAP PO SCH ×2 (09:22→23:03)
[2022-12-16] MEDS ORDERED: POTASSIUM CHLORIDE 20 MEQ/15 ML UDC PO STA (09:23)
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
[2022-12-16] MEDS: MAGNESIUM SULFATE / D5W 1 GM/100 ML BAG IV SCH ×2 (10:10→12:55)
[2022-12-17] MEDS: LIDOCAINE 5% 1 PATCH TD PRN (02:16)
[2022-12-17] MEDS: D5W AND NSS 1,000 ML IV SCH ×2 (05:30→17:32)
[2022-12-17] MEDS: LEVOTHYROXINE SODIUM 150 MCG TABLET PO SCH (05:30)
[2022-12-17 06:23] LABS: Hematocrit (blood only) 34.8 % (37.0-47.0); Hemoglobin 11.8 g/dl (12.0-16.0); Mean Corpuscular Hemoglobin 35.3 pg (25.0-34.0); Mean Corpuscular Hgb Conc 33.9 g/dL (32.0-36.0); Mean Corpuscular Volume 104.2 fL (80.0-100.0); Mean Platelet Volume 10.8 fL (9.4-12.4); Platelet Count 178 K/uL (130-400); RDW Coefficient of Variation 14.6 % (11.5-14.5); RDW Standard Deviation 56.4 fL (36.4-46.3); Red Blood Count 3.34 M/uL (4.20-5.40); White Blood Count 3.65 K/ul (4.8-10.8)
[2022-12-17 06:44] LABS: Albumin Globulin Ratio 0.8 (0.9-2); Albumin Level 2.9 gm/dl (3.4-5.0); Bilirubin,Total 0.7 mg/dl (0.2-1.0); Calcium 7.9 mg/dl (8.6-10.3); Creatinine Clr Calc Pharmacy 147.8 ml/min; Est GFR (African American) 130.9 ml/min; Est GFR (Non-African American) 112.9 ml/min; Globulin 3.8 gm/dl (2.5-4.0); Magnesium 1.9 mg/dl (1.7-2.4); Phosphorus 3.3 mg/dl (2.5-4.9); Potassium 3.7 mmol/L (3.5-5.1); Total Protein 6.7 gm/dl (6.0-8.3)
[2022-12-17 06:46] LABS: INR 1.2 (0.9-1.1); Prothrombin Time 13.1 Seconds (9.0-12.0)
[2022-12-17] MEDS: ACETAMINOPHEN 500 MG TAB PO SCH ×3 (07:35→23:03)
[2022-12-17] MEDS: THIAMINE HCL 100 MG TAB PO SCH (09:03)
[2022-12-17] MEDS: CYANOCOBALAMIN (B-12) 500 MCG TABLET PO SCH (09:03)
[2022-12-17] MEDS: LACTULOSE SYRUP 10 GM/15 ML BTL 960 ML PO SCH ×3 (09:03→20:25)
[2022-12-17] MEDS: FOLIC ACID 1 MG TAB PO SCH (09:04)
[2022-12-17] MEDS: buPROPion XL 150 MG TABCR PO SCH (09:04)
[2022-12-17] MEDS: cefTRIAXone SODIUM 2,000 MG in DEXTROSE 5 % MINI-B 50 ML IV SCH (09:04)
[2022-12-17] MEDS: SPIRONOLACTONE 25 MG TAB PO SCH (09:04)
[2022-12-17] MEDS: PANTOprazole 40 MG TAB PO SCH ×2 (09:04→20:26)
[2022-12-17] MEDS: MAGNESIUM OXIDE 400 MG TAB PO SCH ×2 (09:04→20:25)
[2022-12-17] MEDS: DOCUSATE SODIUM 100 MG CAP PO SCH ×2 (09:04→20:26)
[2022-12-17] MEDS: ENOXAPARIN INJ 40 MG/0.4 ML SYR SQ SCH (09:05)
[2022-12-17] MEDS: traMADol HCL 50 MG TABLET PO PRN ×2 (10:13→18:38)
[2022-12-17] MEDS ORDERED: LORazepam 0.5 MG TAB PO STA (11:45)
[2022-12-17] MEDS ORDERED: LACTULOSE 200GM/700ML WTR ENEMA PR STA (12:42)
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
[2022-12-18] MEDS: LEVOTHYROXINE SODIUM 150 MCG TABLET PO SCH (05:28)
[2022-12-18] MEDS: traMADol HCL 50 MG TABLET PO PRN ×2 (05:29→13:21)
[2022-12-18] MEDS: D5W AND NSS 1,000 ML IV SCH ×2 (05:30→17:15)
[2022-12-18] MEDS: ENOXAPARIN INJ 40 MG/0.4 ML SYR SQ SCH (08:57)
[2022-12-18] MEDS: PANTOprazole 40 MG TAB PO SCH ×2 (09:00→19:24)
[2022-12-18] MEDS: SPIRONOLACTONE 25 MG TAB PO SCH (09:00)
[2022-12-18] MEDS: FOLIC ACID 1 MG TAB PO SCH (09:00)
[2022-12-18] MEDS: THIAMINE HCL 100 MG TAB PO SCH (09:00)
[2022-12-18] MEDS: ACETAMINOPHEN 500 MG TAB PO SCH ×3 (09:00→23:35)
[2022-12-18] MEDS: MAGNESIUM OXIDE 400 MG TAB PO SCH ×2 (09:00→19:22)
[2022-12-18] MEDS: cefTRIAXone SODIUM 2,000 MG in DEXTROSE 5 % MINI-B 50 ML IV SCH (09:01)
[2022-12-18] MEDS: DOCUSATE SODIUM 100 MG CAP PO SCH ×2 (09:01→19:22)
[2022-12-18] MEDS: LACTULOSE SYRUP 10 GM/15 ML BTL 960 ML PO SCH ×3 (09:01→19:22)
[2022-12-18] MEDS: CYANOCOBALAMIN (B-12) 500 MCG TABLET PO SCH (09:01)
[2022-12-18] MEDS: buPROPion XL 150 MG TABCR PO SCH (09:01)
[2022-12-18] MEDS: ONDANSETRON INJ 2 MG/ML 2 ML VIAL IV PRN ×2 (09:02→13:22)
[2022-12-18] MEDS: GABAPENTIN 400 MG CAP PO SCH ×2 (13:22→19:23)
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
[2022-12-19] MEDS: traMADol HCL 50 MG TABLET PO PRN ×2 (00:30→21:24)
[2022-12-19] MEDS: D5W AND NSS 1,000 ML IV SCH ×2 (04:30→16:51)
[2022-12-19] MEDS ORDERED: oxyCODONE HCL IR 5 MG TAB (IMMEDIATE RELEASE) PO STA (05:03)
[2022-12-19] MEDS: LIDOCAINE 5% 1 PATCH TD PRN ×2 (05:09→21:24)
[2022-12-19] MEDS: LEVOTHYROXINE SODIUM 150 MCG TABLET PO SCH (06:06)
[2022-12-19 06:29] LABS: Basophils # (auto) 0.07 K/uL (0.00-0.20); Basophils % (auto) 1.9 %; Eosinophils # (auto) 0.13 K/uL (0.00-0.50); Eosinophils % (auto) 3.5 %; Hematocrit (blood only) 33.4 % (37.0-47.0); Hemoglobin 10.9 g/dl (12.0-16.0); Immature Granulocytes # (auto) 0.01 K/uL (0.01-0.20); Immature Granulocytes % (auto) 0.3 %; Lymphocytes # (auto) 0.83 K/uL (1.20-3.40); Lymphocytes % (auto) 22.5 %; Mean Corpuscular Hemoglobin 34.6 pg (25.0-34.0); Mean Corpuscular Hgb Conc 32.6 g/dL (32.0-36.0); Mean Platelet Volume 10.2 fL (9.4-12.4); Monocytes % (auto) 13.6 %; Neutrophils # (auto) 2.15 K/uL (1.40-6.50); Neutrophils % (auto) 58.2 %; Platelet Count 241 K/uL (130-400); RDW Coefficient of Variation 14.7 % (11.5-14.5); RDW Standard Deviation 58.1 fL (36.4-46.3); Red Blood Count 3.15 M/uL (4.20-5.40); White Blood Count 3.69 K/ul (4.8-10.8)
[2022-12-19 07:03] LABS: Alanine Aminotransferase 10 U/L (7-52); Albumin Globulin Ratio 0.7 (0.9-2); Albumin Level 2.6 gm/dl (3.4-5.0); Alkaline Phosphatase 132 U/L (34-104); Anion Gap 3 (3-11); Aspartate Aminotransferase 23 U/L (13-39); Bilirubin,Total 0.7 mg/dl (0.2-1.0); Blood Urea Nitrogen < 2 mg/dl (6-23); Calcium 7.7 mg/dl (8.6-10.3); Carbon Dioxide 26 mmol/L (21-32); Chloride 102 mmol/L (98-107); Creatinine Clr Calc Pharmacy 151.9 ml/min; Est GFR (African American) 132.9 ml/min; Est GFR (Non-African American) 114.7 ml/min; Globulin 3.9 gm/dl (2.5-4.0); Glucose 92 mg/dl (70-99(Fasting)); Magnesium 1.8 mg/dl (1.7-2.4); Potassium 3.2 mmol/L (3.5-5.1); Sodium 131 mmol/L (136-145); Total Protein 6.5 gm/dl (6.0-8.3)
[2022-12-19] MEDS: ACETAMINOPHEN 500 MG TAB PO SCH ×3 (07:17→23:58)
[2022-12-19] MEDS ORDERED: POTASSIUM CHLORIDE CRTAB 20 MEQ TABCR PO STA (09:10)
[2022-12-19] MEDS: ENOXAPARIN INJ 40 MG/0.4 ML SYR SQ SCH (09:36)
[2022-12-19] MEDS: GABAPENTIN 400 MG CAP PO SCH ×3 (09:36→20:17)
[2022-12-19] MEDS: buPROPion XL 150 MG TABCR PO SCH (09:36)
[2022-12-19] MEDS: CYANOCOBALAMIN (B-12) 500 MCG TABLET PO SCH (09:36)
[2022-12-19] MEDS: FOLIC ACID 1 MG TAB PO SCH (09:36)
[2022-12-19] MEDS: DOCUSATE SODIUM 100 MG CAP PO SCH ×2 (09:36→20:16)
[2022-12-19] MEDS: MAGNESIUM OXIDE 400 MG TAB PO SCH ×2 (09:36→20:16)
[2022-12-19] MEDS: THIAMINE HCL 100 MG TAB PO SCH (09:36)
[2022-12-19] MEDS: SPIRONOLACTONE 25 MG TAB PO SCH (09:36)
[2022-12-19] MEDS: PANTOprazole 40 MG TAB PO SCH ×2 (09:36→20:16)
[2022-12-19] MEDS: cefTRIAXone SODIUM 2,000 MG in DEXTROSE 5 % MINI-B 50 ML IV SCH (09:37)
[2022-12-19] MEDS: LACTULOSE SYRUP 10 GM/15 ML BTL 960 ML PO SCH ×3 (09:41→20:15)
[2022-12-19] MEDS ORDERED: INFLUENZA VIRUS QUADRIVALENT VACCINE (IIV4) 0.5 ML SYR IM ONE (09:44)
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
[2022-12-20] MEDS: D5W AND NSS 1,000 ML IV SCH (03:47)
[2022-12-20] MEDS: LEVOTHYROXINE SODIUM 150 MCG TABLET PO SCH (05:28)
[2022-12-20] MEDS: ACETAMINOPHEN 500 MG TAB PO SCH (07:18)
[2022-12-20] MEDS: traMADol HCL 50 MG TABLET PO PRN (07:18)
[2022-12-20] MEDS ORDERED: POTASSIUM CHLORIDE CRTAB 20 MEQ TABCR PO STA (08:27)
[2022-12-20] MEDS: cefTRIAXone SODIUM 2,000 MG in DEXTROSE 5 % MINI-B 50 ML IV SCH (09:28)
[2022-12-20] MEDS: buPROPion XL 150 MG TABCR PO SCH (09:28)
[2022-12-20] MEDS: DOCUSATE SODIUM 100 MG CAP PO SCH (09:32)
[2022-12-20] MEDS: CYANOCOBALAMIN (B-12) 500 MCG TABLET PO SCH (09:32)
[2022-12-20] MEDS: ENOXAPARIN INJ 40 MG/0.4 ML SYR SQ SCH (09:32)
[2022-12-20] MEDS: LACTULOSE SYRUP 10 GM/15 ML BTL 960 ML PO SCH (09:33)
[2022-12-20] MEDS: SPIRONOLACTONE 25 MG TAB PO SCH (09:33)
[2022-12-20] MEDS: FOLIC ACID 1 MG TAB PO SCH (09:33)
[2022-12-20] MEDS: MAGNESIUM OXIDE 400 MG TAB PO SCH (09:33)
[2022-12-20] MEDS: THIAMINE HCL 100 MG TAB PO SCH (09:33)
[2022-12-20] MEDS: PANTOprazole 40 MG TAB PO SCH (09:33)
[2022-12-20] MEDS: GABAPENTIN 400 MG CAP PO SCH (09:33)
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
[2022-12-20] MEDS ORDERED: GABAPENTIN 400 MG CAP PO STA (10:42)
--- NOTE | 2022-12-20 16:41 | Discharge Summary ---
Date of Service December 20, 2022 Admission HPI Per Admitting Provider This is a 57-year-old female who has a significant past medical history of alcoholic cirrhosis, alcohol dependence, esophageal varices, chronic back pain, hypothyroidism, GERD and depression who presents to ER secondary to back pain. Yesterday patient was moving boxes when she started having lower back pain radiating to her left hip. She denies any recent trauma or fall. Pain is constant, worse with movement, improved with rest, currently 9 out of 10 and is not associated with any bowel or bladder incontinence. She tried Tylenol for her pain without improvement. She has chronic back pain from a prior accident which is in similar distribution to her current pain. Pain is located low back with radiation to L hip, L leg with associated numbness/tingling. She states this feels much worse than normal. She also states she is constipated, last BM 2 days ago. 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 She occasionally has BRBPR due to ext/int hemorrhoids. She felt chilled/sweaty this morning but denied sendy fever. She denies lightheaded, dizziness, chest pain, sob, n/v, dysuria, increased urg/freq with urination. She does feel more bloated than usual. In ED imaging revealed concern for L3- 5discitis/osteomyelitis, sepsis and UTI. She also has elevated ETOH and APAP levels. She states her last drink was 2 days ago and no s/sx of withdrawal at this point. In ED she received IV fluids, vancomycin and zosyn. Admission Exam Per Admitting Provider Physical Exam: Constitutional: WD/WN, chronically ill vitals as above, NAD, sitting up in bed, pleasant, conversing easily Head: Normocephalic, Atraumatic Eyes: PERRL, conjunctivae normal, anicteric sclerae ENMT: external ear and nose normal, oropharynx normal Neck: trachea midline, no thyromegaly normal visual inspection Respiratory: normal respiratory effort, lungs clear to auscultation, no wheeze, rales, rhonchi. Normal insp/exp effort, no accessory muscle use Cardiovascular: RRR, no murmur, no edema Vessels: no JVD or carotid bruit Chest: normal inspection of chest Abdomen: normal bowel sounds, soft, nontender, no hepatosplenomegaly Musculoskeletal: no cyanosis or clubbing, extremities motor strength 5/5 Skin: no rashes, warm and dry normal turgor Neurologic: PERRL, EOMI, accommodation nl, no face palsy, no dysarthria CN's II-XI intact bilaterally and moves all extremities Psychiatric: A+Ox3, euthymic affect Lymphatic: no cervical or axillary lymphadenopathy : deferred Principal Diagnosis Sepsis secondary to bacteremia due to discitis/osteomyelitis L3-4, L4-5 distribution, alcoholic cirrhosis, chronic back pain, complicated UTI, chronic hyponatremia and thrombocytopenia Discharge Exam Lying in bed comfortably Constitutional well developed, well nourished, + ill appearing and + obese Eyes PERRL, conjunctivae normal, anicteric sclerae ENMT external ear and nose normal, oropharynx normal Neck trachea midline, no thyromegaly Respiratory no respiratory distress Auscultation: + diminished lung sounds and + crackles (Crackles at the bases) Cardiovascular Rate/Rhythm: regular rate and regular rhythm; not tachycardic Heart Sounds: normal S1 and normal S2; no murmur Extremities: + edema (Trace edema bilaterally) Gastrointestinal (Abdomen) Inspection/Auscultation: normal bowel sounds; abdomen not distended Percussion/Palpation: abdomen soft; abdomen nontender Neurologic normal touch/pain/proprioception and moves all extremities; no focal motor deficits Lymphatic no cervical or axillary lymphadenopathy Discharge Data Allergies Allergy/AdvReac Type Severity Reaction Status Date / Time Sulfa (Sulfonamide Allergy Intermediate Rash Verified 12/08/22 17:50 Antibiotics) tramadol AdvReac Mild NAUSEA Verified 12/08/22 17:50 Consultations 12/08/22 17:26 ED Decision to Admit Stat 12/08/22 19:11 Consult Orthopedic Surgery Routine 12/08/22 20:19 Consult Infectious Diseases Routine 12/09/22 07:49 Consult Infectious Diseases Routine 12/09/22 15:28 Consult Gastroenterology Routine 12/11/22 12:15 Consult Psychiatry Routine 12/12/22 15:52 Consult Shop Assistant Routine Ordered Studies 12/08/22 15:19 CT lumbar spine w con Stat 12/08/22 15:20 CT abd pelvis IV con only Stat CT head/brain wo con Stat 12/08/22 19:11 MR lumbar spine wo/w con Routine 12/11/22 18:55 US abdomen limited Urgent Hospital Course (1) Sepsis: (2) Bacteremia: (3) DTs (delirium tremens): (4) Discitis: (5) UTI (urinary tract infection): (6) Alcoholic cirrhosis of liver: (7) Chronic back pain: (8) Esophageal varices: Plan This is a 57-year-old female who has a significant past medical history of alcoholic cirrhosis, alcohol dependence, esophageal varices, chronic back pain, hypothyroidism, GERD and depression who presented to ER secondary to back pain. Admitted with bacteremia, UTI and diskitis/osteomyelitis. sepsis 2/2 Bacteremia Diskitis/Osteomyelitis Complicated UTI Pt presented with back pain. Lactate elevated to 3.3 on arrival, repeat of 2.9 and subsequently 2.0 after fluid hydration. WBC was initially wnl, currently elevated >11, 000. Currently tachycardic. Max temp noted of 37.8. UA suggestive of infection, urine culture grew pansensitive E. coli Blood Cx x 2 grew strep mitis/oralis sensitive to Rocephin. Repeat Cx x2 with NGTD Chest XRAY with no acute process Lumbar MRI notes L4-5 discitis/osteomyelitis without evidence of paraspinal or epidural abscess. ESR/CR elevated 63 and 2.26. Echo without chronic changes/vegetations Empirically treated with IV Vanco and Rocephin. MRSA nares negative. Currently on Rocephin only after discussion with pharmacy (Rocephin has better strep coverage than cefepime). 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 Discontinued as pt became lethargic with respiratory depression overnight. Pt currently receiving morphine 4mg q3h with oxycodone 5mg q4h. Narcotics are a nonideal selection in a patient with addiction. Add scheduled Tylenol (not to exceed 2gm/24 hrs) and prn tramadol only for severe pain after trying repositioning, etc. No more fever and or chills Will need a PICC line to continue antibiotic until 01/20/2023 Likely be discharged today Pain is controlled and she will be discharged this morning 12/11- Pt wants to leave AMA. Had withdrawal overnight, gabapentin was switched to librium. AAOx3 on exam today. Family friend at bedside states he will not take her home, believes she wants to go home to drink. Daughter agrees, should not go home. Psych consult placed to determine capacity/competency as pt was in alcohol withdrawal the night before. Appreciate recs. Daughter reportedly convinced mom to stay for treatment, pt currently agreeable to staying. ID recs in, script given to Nurse navigator/CM for IV abx in case pt wants to go. ID recommending IV abx treatment until Nov. Abdominal US with no ascites requiring paracentesis. Continues with delirium but somewhat improved in orientation but still somnolent on phenobarbital protocol, tolerating some PO 12/16: remains lethargic and not eating much food. No narcotics at this point until she can wake up, make sense and sit up/move out of bed. Cont to motivate her to wake up and ambulate. Check ammonia-normal 12/17/2022-clinically much better today 12/18/2022-she has been stable without any acute distress and/or symptoms. Can be discharged this afternoon 12/20/2022-remains hemodynamically stable and should be discharged to SNF this morning Electrolyte Disturbances-resolved. Trend BMP Alcoholic Cirrhosis Alcohol dependence Alcohol withdrawal delirium Esophageal varices Portal HTN CT with evidence of portal vein patency, small ascites continue lactulose, hold lasix, continue aldactone for now until pressures improve continue thiamine, folic acid daily weights Abdominal US with no ascites requiring paracentesis. She is still showing lethargy and encephalopathy related to withdrawal, however, this is somewhat improved. 12/17/2022-clinically much better and has been communicating. Bowel is not moved We will try lactulose enema-bowel is moved Clinically much better today Chronic hyponatremia in setting of alcohol use sodium 128 on admission Improved, cont monitoring while PO intake is intermittent Sodium level has been stable around 131-remains stable Acute/Chronic Back pain pt with worsened pain with recent lifting just prior to admission chronic pain due to previous accident Pain control efforts to address pain as needed, not currently present, and minimize the use of narcotics given history of addiction. ortho spine consulted, lumbar spine stenosis present with discitis involving L3- L5 levels. Continue IV antibiotics as first course of intervention. No operative indication without evidence of epidural abscess. She may later requi re decompression involving at least L4-L5 to address neural compression. Overall a very poor surgical candidate given her history of alcohol use and medical comorbidities. Complaining of neuropathic pain Gabapentin with a smaller dose has been started from today Gabapentin can be increased gradually to the maximum dose as an outpatient Her gabapentin doses have been restarted as per outpatient Chronic thrombocytopenia Secondary to underlying liver disease, stable, no active bleeding Platelet has been normalized at 178 Elevated APAP level level retrieved in the ED on admission after use of Tylenol repeat lower ED reached out to poison control who recommended NAC protocol, this was initiated by ER physician and has been completed Per toxicology- ok to discontinue protocol Diet: Low-sodium DVT ppx: Lovenox FULL CODE Dispo-cont telemetry monitoring. I spent a total of 45 minutes coordinating, documenting, and providing care for this patient excluding time spent in the performance of separately billed services Agatha Mcintyre MD [facility] Hospitalist Discharge this morning Total Time Total Time Spent Total Time Spent (In Minutes): 45 minutes Discharge Plan Discharge Items Patient Disposition: Transfer Residential Fac Reason For Visit: UTI, BACK PAIN Discharge Diagnosis: Sepsis secondary to bacteremia due to discitis/osteomyelitis L3-4, L4-5 distribution, alcoholic cirrhosis, chronic back pain, complicated UTI, chronic hyponatremia and thrombocytopenia Condition on Discharge: Fair Activity: As commented below Activity Comment: Continue PT and OT Non-emergency contact: Primary Care Provider Call non-emergency contact if: you have any medication questions Follow-up/Referrals: Cj Watson MD [Primary Care Provider] - ( ) Christopher Main II, DO [Physician] - (Date & Time 01/16/2023 11:00 AM Provider Christopher Main II, DO Department [facility]ious [facility] ) Diet: Regular and Low Sodium (2gm) Diet Comment: Minced and moist, as tolerated Addtl Attending Provider Instructions: Please take precautions to avoid falls Take your medications as advised Finish the course of antibiotic-weekly CBC, CMP and CRP as long as on IV antibiotic and report to PCP Continue IV Rocephin 2 g every 24 hours with end date on 01/20/2023 Pending Studies at Discharge: No Stand-Alone Forms: My [facility] Skilled Items Patient informed of condition?: Yes DNR: No Discharge Level of Care: Skilled Communicable Disease: No Discharge Prognosis: Stable Lines: US Guided Peripheral IV Urinary Catheter: Yes Medications and DC Order Prescriptions: New thiamine HCl (vitamin B1) 100 mg Tablet 100 mg PO QAM Qty: 30 0RF lidocaine 5 % Adhesive Patch,Medicated 1 patch transdermal Q24H Qty: 30 0RF tramadol 50 mg Tablet 50 mg PO Q8H PRN (Reason: pain (scale score 7-10)) Qty: 20 0RF Continued cyanocobalamin (vitamin B-12) [Vitamin B-12] 1,000 mcg Tablet 1,000 mcg PO QAM cholecalciferol (vitamin D3) [Vitamin D3] 1,000 unit Capsule 1,000 unit PO WE Rx Instructions: Sunday gabapentin 800 mg tablet 800 mg PO TID Rx Instructions: to give with 400mg tid for 1200mg total folic acid 1 mg Tablet 1 mg PO QAM Qty: 30 0RF bupropion HCl 150 mg tablet extended release 24 hr 150 mg PO DAILY spironolactone 25 mg Tablet 50 mg PO QAM Qty: 60 0RF Rx Instructions: take 50 mg daily. magnesium oxide 400 mg (241.3 mg magnesium) Tablet 400 mg PO BID Qty: 30 0RF levothyroxine [Synthroid] 150 mcg Tablet 150 mcg PO DAILYBB Qty: 30 0RF furosemide 40 mg tablet 40 mg PO DAILY lactulose 10 gram/15 mL solution 15 ml PO TID PRN (Reason: Constipation) omeprazole 40 mg capsule,delayed release(DR/EC) 40 mg PO BID Qty: 60 0RF naltrexone 50 mg tablet 50 mg PO DAILY ferrous sulfate [FeroSul] 325 mg (65 mg iron) tablet 325 mg PO DAILY Discontinued gabapentin 400 mg capsule 400 mg PO TID Rx Instructions: to give with 800mg tid for 1200mg total nifedipine 10 mg capsule 10 mg PO DAILY PRN (Reason: raynauds) Discharge Orders: Discharge Order (Routine); Ordered 12/20/22 Ordered By: Agatha Mcintyre Admission Data Admit Date/Time: 12/08/22 17:41 Attending Provider: Agatha Mcintyre Admit Provider: Wendy Lopez Primary Care Provider: Cj Watson Other Providers: Navneet Crockett ; Breanne Caceres ; Woo Read I. ; Christopher Main II ; Glenna Palacios ; Cj Farah ; Agapito Null ; Helen Jaime ; Wendy Lopez ; Nigel Chisholm ; Radha Rob ; Chasity Alva ; Belkis Bledsoe ; Cj Mendoza ; Eduard Barillas ; [facility] ; [facility] Other Interventions: Discharge Summary Assessment (RN) Last Done: 12/20/22 11:10
== END 2022-12-20 11:14 | DRG 872 ==
LOC: ED 14:22 → EDINP 17:41 → SUATTDRO 17:41 → EDINP 20:18 → 4W 21:42 → 1E 12-12 17:22 → 2W 12-14 19:59

== ENCOUNTER 2023-08-22 12:04 | Inpatient (IN) ==
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
[2023-08-22 13:12] LABS: Basophils # (auto) 0.07 K/uL (0.00-0.20); Basophils % (auto) 1.3 %; Eosinophils # (auto) 0.08 K/uL (0.00-0.50); Eosinophils % (auto) 1.4 %; Hematocrit (blood only) 28.1 % (37.0-47.0); Hemoglobin 9.5 g/dl (12.0-16.0); Immature Granulocytes # (auto) 0.01 K/uL (0.01-0.20); Immature Granulocytes % (auto) 0.2 %; Lymphocytes # (auto) 1.25 K/uL (1.20-3.40); Lymphocytes % (auto) 22.3 %; Mean Corpuscular Hemoglobin 35.6 pg (25.0-34.0); Mean Corpuscular Hgb Conc 33.8 g/dL (32.0-36.0); Mean Corpuscular Volume 105.2 fL (80.0-100.0); Mean Platelet Volume 10.6 fL (9.4-12.4); Monocytes % (auto) 8.9 %; Neutrophils # (auto) 3.69 K/uL (1.40-6.50); Neutrophils % (auto) 65.9 %; Platelet Count 193 K/uL (130-400); RDW Coefficient of Variation 12.7 % (11.5-14.5); RDW Standard Deviation 49.3 fL (36.4-46.3); Red Blood Count 2.67 M/uL (4.20-5.40)
--- NOTE | 2023-08-22 13:18 | XRay Report ---
SINGLE VIEW CHEST CLINICAL HISTORY: Generalized abdominal pain. FINDINGS: An AP, portable, upright chest radiograph is compared to study dated 12/08/2022 and correlat ed with chest CT dated 08/19/2019. The heart is enlarged. The pulmonary vasculature is noncongested. C hronic interstitial thickening is similar to previous. There is chronic elevation of the left hemidia phragm with left basilar atelectasis. No airspace consolidation or large pleural effusion is identifi ed. No pneumothorax is seen. The skeletal structures are osteopenic. The bony thorax is grossly intac t. IMPRESSION: Cardiomegaly with no active disease in the chest. ACT 112: Negative or not required by law. Electronically signed by: Yasir Momin M.D. 08/22/2023 1:16 PM
[2023-08-22 13:20] LABS: Albumin Globulin Ratio 0.5 (0.9-2); Albumin Level 2.4 gm/dl (3.4-5.0); BUN Creatinine Ratio 5.8 (10-20); Bilirubin Direct 1.5 mg/dl (0-0.2); Bilirubin,Total 3.5 mg/dl (0.2-1.0); Calcium 7.9 mg/dl (8.6-10.3); Creatinine Clr Calc Pharmacy 86.4 ml/min; Est GFR (African American) 111.2 ml/min; Globulin 5.1 gm/dl (2.5-4.0); Potassium 2.7 mmol/L (3.5-5.1); Total Protein 7.5 gm/dl (6.0-8.3)
[2023-08-22 13:25] LABS: Troponin I High Sensitivity 5.3 pg/ml (0-14)
[2023-08-22 13:27] LABS: INR 1.4 (0.9-1.1); Prothrombin Time 15.2 Seconds (9.0-12.0)
[2023-08-22] MEDS: OPTIRAY 320 100ml IV ONE (13:58)
--- NOTE | 2023-08-22 14:48 | CT Scan Report ---
CT abd pelvis IV con only CLINICAL HISTORY: abd pain, ascites, cirrhosis TECHNIQUE: Helical axial images of the abdomen and pelvis were obtained and displayed. Automated dose lowering techniques and/or adjustment according to patient size were utilized for this exam. This e xam was performed with intravenous contrast. CT DOSE: 981.95 mGy.cm COMPARISON: Comparison is made to CT abdomen pelvis 12/08/2022 FINDINGS: Lower chest: Bibasilar atelectasis versus scarring is seen. Liver: The liver is seen. There is prominence of the medial aspect of the right lobe of the liver. Gallbladder and biliary tree: No calcified gallstones. Normal caliber wall. No intra- or extrahepatic biliary ductal dilation. Pancreas: Unremarkable, no focal lesions. Spleen: Unremarkable. Adrenals: Unremarkable. Kidneys and ureters: Unremarkable. Bladder: Unremarkable. Reproductive organs: Unremarkable. Bowel: Diverticulosis is seen without diverticulitis. The appendix is normal. Thickening of the cecum and transverse colon noted. Lymph nodes Retroperitoneal: Unremarkable. Pelvic: Unremarkable. Mesenteric: Unremarkable. Peritoneum: Moderate ascites is seen. Vessels: Atherosclerotic calcifications are seen. Abdominal wall: Unremarkable. Bones: Degenerative changes in the visualized spine. Avascular necrosis of the bilateral femoral head s again noted. IMPRESSION: 1. Thickening of the cecum and proximal colon may represent a nonspecific colitis. 2. Cirrhosis with ascites. Heterogeneous appearance of the liver with irregular contour including a mildly hypoenhancing prominence in the medial aspect of the right lobe. If not previously evaluated, nonemergent MRI can be performed. 3. Additional findings as above. ACT 112: Negative or not required by law. Electronically signed by: Donal Lopez M.D. 08/22/2023 2:47 PM
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
[2023-08-22] MEDS: POTASSIUM CHLORIDE / WTR 10 MEQ/100 ML PLCT IV SCH (16:15)
[2023-08-22] MEDS: POTASSIUM CHLORIDE CRTAB 20 MEQ TABCR PO STA ×2 (16:15→22:15)
--- NOTE | 2023-08-22 16:32 | Electrocardiogram Report ---
Test Reason : Blood Pressure : / mmHG Vent. Rate : 083 BPM Atrial Rate : 083 BPM P-R Int : 158 ms QRS Dur : 084 ms QT Int : 454 ms P-R-T Axes : 044 010 026 degrees QTc Int : 533 ms Normal sinus rhythm Low voltage QRS Inferior infarct (cited on or before 08-DEC-2022) Prolonged QT Abnormal ECG When compared with ECG of 08-DEC-2022 21:26, No significant change was found Confirmed by Luis Fernando Crawford ([id number]) on 08/22/2023 4:32:11 PM Referred By: REFERRED SELF Confirmed By:Luis Fernando Crawford
[2023-08-22 17:26] LABS: Albumin Peritoneal Fluid < 1.5 gm/dl
[2023-08-22 17:32] LABS: Total Protein Peritoneal Fluid < 3.0 gm/dl
[2023-08-22] MEDS: SODIUM CHLORIDE 0.9% 1,000 ML IV SCH (17:38)
[2023-08-22 18:03] LABS: Appearance Peritoneal Fluid Slightly Hazy; Color Peritoneal Fluid Yellow; Lymphocytes, Fluid 37 %; Mono,Macrophage,Mesothelial 56 %; Neutrophils, Fluid 7 %; RBC Peritoneal Fluid Auto < 2000 /uL; WBC Peritoneal Fluid Auto 235 /ul (0-300)
[2023-08-22] MEDS ORDERED: ALUMINUM/MAGNESIUM SUSP 30 ML UDC PO PRN (19:09)
[2023-08-22] MEDS ORDERED: POLYETHYLENE (MIRALAX) 17 GM PACK PO PRN (19:09)
[2023-08-22] MEDS ORDERED: PROMETHAZINE HCL 12.5 MG in SODIUM CHLORIDE 0.9% 50 ML IV PRN (19:09)
[2023-08-22] MEDS: ALBUMIN 25% 25 GM/100 ML VIAL IV ONE (21:11)
[2023-08-22] MEDS: MAGNESIUM HYDROXIDE SUSP 30 ML UDC PO PRN (21:16)
[2023-08-22] MEDS: PANTOprazole 40 MG TAB PO SCH (21:16)
[2023-08-22] MEDS: GABAPENTIN 800 MG TAB PO SCH (21:17)
[2023-08-22] MEDS: rifAXIMin 550 MG TABLET PO SCH (21:17)
[2023-08-22] MEDS: MAGNESIUM OXIDE 400 MG TAB PO SCH (21:17)
[2023-08-22] MEDS: GABAPENTIN 400 MG CAP PO SCH (21:18)
[2023-08-22 21:40] LABS: Magnesium 1.7 mg/dl (1.7-2.4)
[2023-08-22] MEDS: hydrOXYzine HCl 10 MG TAB PO PRN (22:15)
[2023-08-22 23:07] LABS: Appearance Urine Cloudy (Clear); Bacteria Urine Automated 4+ (None Seen); Bilirubin Urine 1+ (Negative); Blood Urine Negative (Negative); Color Urine Dark Yellow; Epithelial Cell Urine Auto 0-2 /hpf (0-2); Glucose Urine UA Negative (Negative); Ketones Urine Trace (Negative); Leukocyte Esterase Urine 2+ (Negative); Nitrite Urine Positive (Negative); Protein Urine Negative (Negative); RBC Urine Automated 0-2 /hpf (0-2); Specific Gravity Urine 1.042 (1.000-1.030); Urobilinogen Urine Positive (Negative); WBC Urine Automated >50 /hpf (0-5); pH Urine 6.5 (4.5-7.5)
[2023-08-22 23:28] LABS: Amphetamines+Metham, Urine Neg (Neg); Barbiturates, Urine Neg (Neg); Benzodiazepine, Urine Neg (Neg); Cocaine, Urine Neg (Neg); Fentanyl, Urine Neg (Neg); MDMA (Ecstacy), Urine Pos (Neg); Marijuana, Urine Neg (Neg); Methadone, Urine Neg (Neg); Opiate, Urine Neg (Neg); Phencyclidine, Urine Neg (Neg)
--- OUTSIDE RECORDS SUMMARY | 2023-08-22 23:34 | External Medical Summary | Summary of Care ---
Author Name Unknown Organization [facility] Address [address] [facility] [place] [address] Phone [phone] Care Team Providers Care Winding Rack Operator Name Role Phone Cj Watson MD Primary Care Provider [phone] Reason for Visit * Reason Onset Date Comments Test Results 08/20/2023 Encounter Details Date Type Department Care Team (Late st Contact Info) Description 08/20/2023 Telephone Gastroenterology, [facility] [address] [place] [address] May Villalta CRNP [address] [place] [id number] Test Results Allergies Active Allergy Reactions Criticality Noted Date Comments Sulfa Antibiotics High 05/04/2021 Sulfa's- hives per pt report documented as of this encounter (statuses as of 08/21/2023) Medications Medication Sig Dispensed Refills Start Date End Date Status B-12 1000 MCG Oral Capsule Take 1 Capsule by mouth in the morning. Active D3-1000 25 MCG (1000 UT) Oral Capsule (Cholecalciferol) Take 1 Capsule by mouth once a week. Wednesdays Active Magnesium Oxide 400 MG Oral Capsule Take 1 Capsule by mouth in the morning and 1 Capsule before bedtime. Take by mouth 400 mg in the morning AND 400 mg before bedtime.. 60 Capsule 5 04/14/2022 Active Sucralfate 1 GM Oral Tablet (Carafate) 06/02/2022 Active Ferrous Sulfate 325 (65 Fe) MG Oral Tablet (Feosol) Take 1 Tablet by mouth in the morning and 1 Tablet before bedtime. 60 Tablet 11 06/20/2022 Active Albumin Human 25 % Intravenous SolutionIndications :Alcoholic cirrhosis of liver with ascites (HCC) 25G IV pre-paracentesis followed by 25 G IV post paracentesis. May run at 100mL/hr. 200 mL 07/07/2022 Active Additional Information Patient not taking.Reported on 11/01/2022 NIFEdipine 10 MG Oral Capsule (Procardia)Indicati ons:Raynaud's disease without gangrene TAKE ONE CAPSULE BY MOUTH EVERY DAY IN THE MORNING. 30 Capsule 5 10/12/2022 Active Additional Information Patient taking differently: "As needed", Reported on 06/21/2023 Lidocaine 5 % External Patch (Lidoderm) daily. 12/20/2022 Active traMADol HCl 50 MG Oral Tablet (Ultram) 1 Tablet. 12/20/2022 Active Naltrexone HCl 50 MG Oral Tablet (Revia) 1 Tablet in the morning. 11/23/2022 Active busPIRone HCl 5 MG Oral Tablet (Buspar) Take 1 Tablet by mouth in the morning and 1 Tablet at noon and 1 Tablet before bedtime. Take 7.5 mg every 8 hours as needed for anxiety. Active Omeprazole 40 MG Oral Capsule Delayed Release (PriLOSEC) TAKE 1 CAPSULE BY MOUTH TWICE DAILY 180 Capsule 1 01/16/2023 Active Lactulose 10 GM/15ML Oral Solution (Constulose)Indicat ions:Constipation, unspecified constipation type TAKE 15ML BY MOUTH THREE A DAY NEEDED to have 2-3 bowel movements per day 1439 mL 11 01/30/2023 Active Thiamine HCl 100 MG Oral Tablet (vitamin B-1)Indications:Unc omplicated alcohol dependence (HCC) Take 1 Tablet by mouth in the morning. 90 Tablet 3 01/30/2023 Active Folic Acid 1 MG Oral TabletIndications:U ncomplicated alcohol dependence (HCC) TAKE 1 TABLET BY MOUTH ONCE DAILY 90 Tablet 3 05/14/2023 Active Gabapentin 400 MG Oral Capsule (Neurontin)Indicati ons:Burning pain TAKE 1 CAPSULE BY MOUTH THREE TIMES DAILY every morning, at noon, and before bedtime 270 Capsule 3 05/16/2023 Active Furosemide 40 MG Oral Tablet (Lasix) TAKE 1 TABLET BY MOUTH EVERY MORNING 90 Tablet 2 05/21/2023 Active Levothyroxine Sodium 150 MCG Oral Tablet (Levoxyl) TAKE 1 TABLET BY MOUTH EVERY MORNING. AT LEAST 30 MINUTES PRIOR TO BREAKFAST OR OTHER MEDICATIONS 90 Tablet 3 05/29/2023 Active Spironolactone 25 MG Oral Tablet (Aldactone)Indicati ons:Alcoholic cirrhosis of liver with ascites (HCC) TAKE 2 TABLETS BY MOUTH EVERY MORNING 180 Tablet 1 06/13/2023 Active hydrOXYzine HCl 25 MG Oral Tablet Take 1 Tablet by mouth at bedtime as needed for Anxiety. 30 Tablet 2 06/21/2023 Active Additional Information Patient taking differently:25 mg Oral QHS PRN, Anxiety,Needs to scrap picker, Reported on 06/21/2023 buPROPion HCl ER (XL) 150 MG Oral Tablet Extended Release 24 Hour (Wellbutrin XL) TAKE 1 TABLET BY MOUTH EVERY MORNING 90 Tablet 3 08/09/2023 Active Gabapentin 800 MG Oral Tablet (Neurontin)Indicati ons:Chronic left-sided thoracic back pain TAKE 1 TABLET BY MOUTH THREE TIMES DAILY EVERY MORNING, AT NOON, AND BEFORE BEDTIME 270 Tablet 1 08/20/2023 Active Potassium Chloride Cheryl ER 20 MEQ Oral Tablet Extended Release Take 2 Tablets by mouth in the morning. 60 Tablet 1 08/20/2023 Active rifAXIMin 550 MG Oral Tablet (Xifaxan) Take 1 Tablet by mouth in the morning and 1 Tablet before bedtime. 60 Tablet 2 08/20/2023 Active documented as of this encounter (statuses as of 08/21/2023) Active Problems Problem Noted Date Diagnosed Date Pancytopenia 06/05/2022 Alcohol dependence 07/04/2019 Chronic thoracic back pain 07/04/2019 Hypothyroidism 07/04/2019 GERD (gastroesophageal reflux disease) 0 Adjustment disorder with depressed mood 07/04/19 20 documented as of this encounter (statuses as of 08/21/2023) Immunizations Name Administration Dates Next Due COVID-19 mRNA, LNP-s, No Pre serve, 2-Dose Series ([employer]) 05/19/2020 Hepatitis B, 20+ yrs 06/20/2022,08/02/2007 Pneumococcal Polysaccharide PPV23 (Pneumovax) Seasonal Influenza, PF, 6 M & above, IM , (FluLaval or Fluzone) 11/30/2020 Seasonal Influenza, Quadrivalent, No Preserve, M dck 06/07/2019 TD, Preservative Free 08/31/2020 TDAP (age 10 and older)(Boostrix) 07/24/2007 documented as of this encounter Social History Tobacco Use Types Packs/Day Years Used Date Smoking Tobacco: Never Smokeless Tobacco: Never Alcohol Use Standard Drinks/Week Comments Yes 0 (1 standard drink = 0.6 oz pure alcohol) had stopped completely but reports ocasional use now PHQ-2 Answer Date Recorded PHQ Adult Total Score 0 06/20/2022 Hunger Vital Sign Answer Date Recorded Within the past 12 months, y ou worried that your food would run out before you got the money to buy more. Never true 05/28/19 21 Within the past 12 months, t he food you bought just didn't last and you didn't have money to get more. Never true 05/27/2020 Utilities Answer Date Recorded Do you have trouble paying y our heating, water, or electric bill? (Adult - for ages 18 years and over) Not on file 08/21/2023 Is your family able to pay t he heat, water, or electric bill? (Household - for ages 0-17 years) Not on file 08/21/2023 Does your family have access to good internet? (Household - for ages 0-17 years) Not on file 08/21/2023 Social Connections Answer Date Recorded How often do you feel lonely or isolated from those around you? (Adult - for ages 18 years and over) Not on file 08/21/2023 Sex and Gender Information Value Date Recorded Sex Assigned at Not on file Gender Identity Not on file Sexual Orientation Not on file Job Start Date Occupation Industry Not on file Not on file Not on file documented as of this encounter Functional Status Functional Status Response Date of Assess ment Does this person have seriou s difficulty walking or climbing stairs? Yes 01/02/2022 documented as of this encounter Miscellaneous Notes * Telephone Encounter - Daphney Chisholm OSA - 08/21/2023 12:05 PM EDT Added pt to May's schedule 08/21 * Telephone Encounter - Johanna Frederick CPhT - 08/21/2023 10:08 AM EDT Pharmacy calling on med problem with gastro med. Transferred to specialty Thank you, Shasha Frederick Business Development Officer [facility] 08/21/2023,10:08 AM * Telephone Encounter - May Villalta CRNP - 08/20/2023 7:20 PM EDT Xray showed small bowel loop dilation. Pt reports abd distension but passing flatus and stools K 2.9, Na 129. She took extra Furosemide under my direction last weekend. Currently on Furosemide 40mg, Spironolactone 25mg bid. She denies palpitation, chest pain. Advised the following: - Stop Lactulose - Start Miralax 17g po bid - Start Xifaxan 550mg bid - KCl 40mg PO daily Schedulers - pls add pt to my clinic on Monday 08/21 at 8:30a. Pt aware to come at this time. Will obtain repeat labs and KUB at time of visit GRACE Tan documented in this encounter Plan of Treatment Upcoming Encounters Date Type Department Care Team (Late st Contact Info) Description 08/22/2023 8:30 AM EDT Office Visit Gastroenterology, [facility] [address] [place] [address] May Villalta CRNP [address] [place] [address] 09/11/2023 6:10 PM EDT Pharmacy Pharmacy, [facility] [address] [place] [address] [facility] [address] [place] [address] 11/13/2023 3:15 PM EDT Imaging Radiology [facility] [place] [address] [facility] [place] [address] 12/10/2023 9:00 AM EDT Office Visit Psychiatry, [place] [place] [address] [place] [address] Hansen, Radha Pitts, INCISING MACHINE OPERATOR [address] [place] [address] Scheduled Procedures Name Priority Associated Diagnoses Date/Ti me COLONOSCOPY FLEXIBLE PROXIMAL DIAGNOSTIC Recall Screen for colon cancer ESOPHAGOGASTRODUODENOSCOPY ( EGD), FLEXIBLE, TRANSORAL, DIAGNOSTIC Recall Esophageal varices (HCC) Portal hypertensive gastropathy (HCC) Health Maintenance Due Date Last Done Comments HPV/Co-Test 06/24/1995 Cologuard 2010 Fecal Occult Blood Test 2010 Sigmoidoscopy 2010 Pneumococcal Vaccine: Pediatrics (0 to 5 Years) and At-Risk Patients (6 to 64 Years) (2 of 2 - PCV) 04/28/2016 04/28/2015 Mammogram 08/05/2022 08/05/2021, 06/01/2020 Hepatitis B (3 of 3 - 19+ 3-dose series) 08/15/2022 06/20/2022, 08/02/2007 COVID-19 Vaccine (3 - 2022- season) 2022 06/09/2020, 05/19/2020 TSH 01/02/2023 01/02/2022, 04/05, 05/27/2020, Additional history exists Zoster Vaccines (2 of 2) 03/13/2023 01/16/2023 Depression Screening 06/21/2023 06/20/2022 Influenza Vaccine (FLU shot) (Season Ended) 2023 11/30/2020, 06/07/2019 Cervical Cancer Screening 01/01/2024 Pap Smear 01/01/2024 12/31/2020 Colonoscopy 10/04/2025 10/04/2022, 08/0 04/2022, 04/17/2017 Colorectal Cancer Screening 10/04/2025 Diabetes Screening 08/19/2026 08/20/2023, 0 06/21/2023, 04/03/2023, Additional history exists Lipid Panel 01/02/2027 01/02/2022 DTaP,Tdap,and Td Vaccines (3 - Td or Tdap) 08/31/2030 08/31/2020, 07/24/2007 GARDASIL-HPV IMMUNIZATION SERIES Aged Out No longer eligible based on patient's age to complete this topic MENINGOCOCCAL (MENACTRA/MENVEO) Aged Out No longer eligible based on patient's age to complete this topic documented as of this encounter Medical Devices Not on filedocumented as of this encounter Care Teams Winding Rack Operator Relationship Specialty Start Date End Date Cj Watson MD [address] [place] [address] PCP - General Family Medicine 08/18/19 documented as of this encounter
--- OUTSIDE RECORDS SUMMARY | 2023-08-22 23:34 | External Medical Summary ---
Author Name Unknown Address Unknown Organization [facility] [address] [place] [address] Laboratory Report Ordering Provider Test Date Status KATIE NARVAEZ 08/22/2023 09:21:21 Final Observation Date Value Abnormality Reference (Units ) Status BUN 08/22/2023 09:21:21 3 Below low normal 6-20 (mg/dL) Final Creatinine 08/22/2023 09:21:21 0.8 0.5-1.0 (mg/dL) Final Glomerular filtration rate/1.73 sq M.predicted [Volume Rate/Area] in Serum, Plasma or Blood by Creatinine-based formula (CKD-EPI) 08/22/2023 09:21:21 >90 >=60 (mL/min) Final eGFR is calculated based on the CKD-EPI 2020 equation Sodium 08/22/2023 09:21:21 134 Below low normal 135 -146 (mmol/L) Final Potassium 08/22/2023 09:21:21 2.8 Below low normal 3.5 -5.1 (mmol/L) Final Cl 08/22/2023 09:21:21 92 Below low normal 98- 107 (mmol/L) Final CO2 08/22/2023 09:21:21 31 22-32 (mmo l/L) Final Anion gap 08/22/2023 09:21:21 11 7-15 (mmol /L) Final Glucose 08/22/2023 09:21:21 75 70-120 (mg /dL) Final Albumin 08/22/2023 09:21:21 2.6 Below low normal 3.8 -5.0 (g/dL) Final AST (Aspartate aminotransferase) 08/22/2023 09:21:21 74 Above high normal 10-35 (U/L) Final Alk Phos 08/22/2023 09:21:21 127 35-130 (U/ L) Final Bilirubin, Total 08/22/2023 09:21:21 3.5 Above high no rmal <=1.2 (mg/dL) Final Calcium 08/22/2023 09:21:21 8.3 Below low normal 8.4 -10.2 (mg/dL) Final Protein 08/22/2023 09:21:21 7.1 6.0-8.3 (g /dL) Final ALT (Alanine aminotransferase) 08/22/2023 09:21:21 24 10-35 (U/L) Petros zavala Performing Location [facility] [address] [place] [address]
--- OUTSIDE RECORDS SUMMARY | 2023-08-22 23:34 | External Medical Summary | Summary of Care ---
Author Name Unknown Organization [facility] Address [address] [facility] [place] [address] Phone [phone] Care Team Providers Care Model Home Sales Greeter Name Role Phone Cj Watson MD Primary Care Provider [phone] Reason for Visit * Reason Onset Date Comments Pre Cert/Prior Auth 08/21/2023 Encounter Details Date Type Department Care Team (Late st Contact Info) Description 08/21/2023 Telephone Gastroenterology, [facility] [address] [place] [address] May Villalta CRNP [address] [place] [address] Pre Cert/Prior Auth Allergies Active Allergy Reactions Criticality Noted Date Comments Sulfa Antibiotics High 05/04/2021 Sulfa's- hives per pt report documented as of this encounter (statuses as of 08/22/2023) Medications Medication Sig Dispensed Refills Start Date [...] 06/20/2022 Active Albumin Human 25 % Intravenous SolutionIndicatio ns:Alcoholic cirrhosis of liver with ascites (HCC) 25G IV pre-paracentesis followed by 25 G IV post paracentesis. May run at 100mL/hr. 200 mL 07/07/2022 Active Additional Information Patient not taking.Reported on 11/01/2022 NIFEdipine 10 MG Oral Capsule (Procardia)Indica tions:Raynaud's disease without gangrene TAKE ONE CAPSULE BY [...] 01/16/2023 Active Lactulose 10 GM/15ML Oral Solution (Constulose)Indic ations:Constipati on, unspecified constipation type TAKE 15ML BY MOUTH THREE A DAY NEEDED to have 2-3 bowel movements per day 1439 mL 11 01/30/2023 Active Thiamine HCl 100 MG Oral Tablet (vitamin B-1)Indications:U ncomplicated alcohol dependence (HCC) Take 1 Tablet by mouth in the morning. 90 Tablet 3 01/30/2023 Active Folic Acid 1 MG Oral TabletIndications :Uncomplicated alcohol dependence (HCC) TAKE 1 TABLET BY MOUTH ONCE DAILY 90 Tablet 3 05/14/2023 Active Gabapentin 400 MG Oral Capsule (Neurontin)Indica tions:Burning pain TAKE 1 CAPSULE BY MOUTH THREE [...] 05/29/2023 Active Spironolactone 25 MG Oral Tablet (Aldactone)Indica tions:Alcoholic cirrhosis of liver with ascites (HCC) TAKE 2 TABLETS BY MOUTH EVERY MORNING 180 Tablet 1 06/13/2023 Active hydrOXYzine HCl 25 MG Oral Tablet Take 1 Tablet by mouth at bedtime as needed for Anxiety. 30 Tablet 2 06/21/2023 Active Additional Information Patient taking differently:25 mg Oral QHS PRN, Anxiety,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ing crew supervisor, Reported on 06/21/2023 buPROPion HCl ER (XL) 150 MG Oral Tablet Extended Release 24 Hour (Wellbutrin XL) TAKE 1 TABLET BY MOUTH EVERY MORNING 90 Tablet 3 08/09/2023 Active Gabapentin 800 MG Oral Tablet (Neurontin)Indica tions:Chronic left-sided thoracic back pain TAKE 1 TABLET [...] 1 Tablet before bedtime. 60 Tablet 2 08/22/2023 Active rifAXIMin 550 MG Oral Tablet (Xifaxan) Take 1 Tablet by mouth in the morning and 1 Tablet before bedtime. 60 Tablet 2 08/20/2023 4 Discontinue d(Refill) documented as of this encounter (statuses as of 08/22/2023) Active Problems Problem Noted Date Diagnosed Date Pancytopenia 06/05/2022 Alcohol dependence 07/04/2019 Chronic thoracic back pain 07/04/2019 Hypothyroidism 07/04/2019 GERD (gastroesophageal reflux disease) 0 Adjustment disorder with depressed mood 07/04/19 20 documented as of this encounter (statuses as of 08/22/2023) Immunizations Name Administration Dates Next Due COVID-19 mRNA, LNP-s, No Pre serve, 2-Dose Series ([employer]) 05/19/2020 Hepatitis B, 20+ yrs 06/20/2022,08/02/2007 Pneumococcal [...] encounter Miscellaneous Notes * Telephone Encounter - Frances Elaine, die mechanic - 08/21/2023 10:11 AM EDT Pharmacy calling to inform doctor that the patient's insurance will not pay for this medication without a completed prior authorization. Did confirm this information with the pharmacy. Pt's current insurance information is as follows: Patient name: Anh Toribio ID number: [id number] BIN number: [id number] PCN number: [id number] Group number: [id number] Subscriber name: Anh Toribio Primary or Secondary Insurance:Primary Medication: Xifaxan Reason for Request: prior auth Pharmacy and phone number: [id number] [phone] Rx plan and phone number: Eliaclaudia [phone] Is this a new medication for the patient? Yes What alternative medications does the pharmacy have in stock?: N/A Thank you, Frances Elaine Commercial Estimator [facility] ([facility] 08/21/2023,10:11 AM documented in this encounter Plan of Treatment Upcoming Encounters Date Type Department Care Team (Late st Contact Info) Description 08/22/2023 8:30 AM EDT Office Visit Gastroenterology, [facility] [address] [address] May Villalta CRNP [address] [address] [address] 09/11/2023 6:10 PM EDT Pharmacy Pharmacy, [facility] [address] [address] [facility] [address] [address] 11/13/2023 3:15 PM EDT Imaging Radiology [facility] 1st [facility] [address] [address] 12/10/2023 9:00 AM EDT Office Visit Psychiatry, [place] [address] [place] [address] Tyrone Radha GRACE Pitts [address] [facility] [place] [address] Scheduled Procedures Name Priority Associated Diagnoses Date/Ti [...] filedocumented as of this encounter Care Teams Model Home Sales Greeter Relationship Specialty Start Date End Date Cj Watson MD [address] [place] [address] PCP - General Family Medicine 08/18/19 documented as of this encounter
--- OUTSIDE RECORDS SUMMARY | 2023-08-22 23:34 | External Medical Summary | Summary of Care ---
Author Name Unknown Organization [facility] Address [address] [facility] [facility] [address] Phone [phone] Care Team Providers Care Shipping Technician Name Role Phone Cj Watson MD Primary Care Provider [phone] Reason for Visit * Reason Comments Outpatient Testing Encounter Details Date Type Department Care Team (Late st Contact Info) Description 08/22/2023 9:20 AM EDT Laboratory Laboratory, [facility] [address] [facility] [id number] [facility] [address] [place] [address] Alcoholic cirrhosis of liver with ascites (HCC) Allergies Active Allergy Reactions Criticality Noted Date [...] differently:25 mg Oral QHS PRN, Anxiety,Needs to nut picker, Reported on 06/21/2023 buPROPion HCl ER [...] before bedtime. 60 Tablet 2 08/22/2023 Active Additional Information Patient not taking.Reported on 08/22/2023 documented as of this encounter (statuses as of 08/22/2023) Active Problems Problem Noted Date Diagnosed Date Pancytopenia 06/05/2022 Alcohol dependence 07/04/2019 Chronic thoracic back pain 07/04/2019 Hypothyroidism 07/04/2019 GERD (gastroesophageal reflux disease) 0 Adjustment disorder with depressed mood 07/04/19 20 documented as of this encounter (statuses as of 08/22/2023) Immunizations Name Administration Dates Next Due COVID-19 mRNA, LNP-s, No Pre serve, 2-Dose Series ([employer]) 05/19/2020 Hepatitis B, 20+ yrs 06/20/2022,08/02/2007 Pneumococcal [...] Yes 01/02/2022 documented as of this encounter Plan of Treatment Upcoming Encounters Date Type Department Care Team (Late st Contact Info) Description 08/23/2023 10:30 AM EDT Imaging Radiology [address] [place] [address] 09/11/2023 6:10 PM EDT Pharmacy Pharmacy, [facility] [place] [address] [facility] [address] [place] [address] 11/13/2023 3:15 PM EDT Imaging Radiology [facility] 1st Floor, [place] [facility] [address] [place] [address] 12/10/2023 9:00 AM EDT Office Visit Psychiatry, [facility] [address] [place] [address] Radha Hansen CRNP [address] [place] [address] 01/09/2024 10:30 AM EST Office Visit Gastroenterology, [facility] [place] [address] May Villalta CRNP [address] [place] [address] Pending Results Name Type Priority Associated Diagnoses Date /Time COMPREHENSIVE METABOLIC PANEL Lab Routine Alcoholic cirrhosis of liver with ascites (HCC) 08/22/2023 9:21 AM EDT Scheduled Procedures Name Priority Associated Diagnoses Date/Ti dc COLONOSCOPY FLEXIBLE PROXIMAL DIAGNOSTIC Recall Screen for [...] Pap Smear 01/01/2024 12/31/2020 Colonoscopy 10/04/2025 10/04/2022, 08/04/2022, 04/17/2017 Colorectal Cancer Screening 10/04/2025 Diabetes Screening [...] Not on filedocumented as of this encounter Visit Diagnoses Diagnosis Alcoholic cirrhosis of liver with ascites (HCC) Alcoholic cirrhosis of liver documented in this encounter Care Teams Shipping Technician Relationship Specialty Start Date End Date Cj Watson MD [address] [place] [address] PCP - General Family Medicine 08/18/19 documented as of this encounter
--- OUTSIDE RECORDS SUMMARY | 2023-08-22 23:35 | External Medical Summary | Summary of Care ---
Author Name Unknown Organization [facility] Address [address] [facility] [address] Phone [phone] Care Team Providers Care Glass Processing Worker Name Role Phone Cj Watson MD Primary Care Provider [phone] Reason for Visit * Reason Onset Date Comments Appointment 07/27/2023 Encounter Details Date Type Department Care Team (Late st Contact Info) Description 07/27/2023 Telephone Radiology [address] 132 [facility] [place] [address] Josiane Marin, RT (R) Appointment Allergies Active Allergy Reactions Criticality Noted Date Comments Sulfa Antibiotics High 05/04/2021 Sulfa's- hives per pt report documented as of this encounter (statuses as of 07/27/2023) Medications Medication Sig Dispensed Refills Start Date [...] Additional Information Patient not taking.Reported on 11/01/2022 buPROPion HCl ER (XL) 150 MG Oral Tablet Extended Release 24 Hour (Wellbutrin XL) TAKE ONE TABLET BY MOUTH IN THE MORNING 90 Tablet 3 08/18/2022 Active NIFEdipine 10 MG Oral Capsule (Procardia)Indicati ons:Raynaud's disease without gangrene TAKE ONE CAPSULE BY MOUTH EVERY DAY IN THE MORNING. 30 Capsule 5 10/12/2022 Active Additional Information Patient taking differently: "As needed", Reported on 06/21/2023 Gabapentin 800 MG Oral Tablet (Neurontin)Indicati ons:Chronic left-sided thoracic back pain TAKE ONE TABLET BY MOUTH IN THE MORNING, ONE TABLET AT NOON AND ONE TABLET BEFORE BEDTIME 270 Tablet 1 11/20/2022 Active Lidocaine 5 % External Patch (Lidoderm) daily. [...] differently:25 mg Oral QHS PRN, Anxiety,Needs to sheepskin pickler, Reported on 06/21/2023 documented as of this encounter (statuses as of 07/27/2023) Active Problems Problem Noted Date Diagnosed Date Pancytopenia 06/05/2022 Alcohol dependence 07/04/2019 Chronic thoracic back pain 07/04/2019 Hypothyroidism 07/04/2019 GERD (gastroesophageal reflux disease) 0 Adjustment disorder with depressed mood 07/04/19 20 documented as of this encounter (statuses as of 07/27/2023) Immunizations Name Administration Dates Next Due COVID-19 mRNA, LNP-s, No Pre serve, 2-Dose Series ([employer] 05/19/2020 Hepatitis B, 20+ yrs 06/20/2022,08/02/2007 Pneumococcal [...] money to get more. Never true 05/27/2020 Sex and Gender Information Value Date Recorded [...] encounter Miscellaneous Notes * Telephone Encounter - Josiane Marin RT (R) - 07/27/2023 2:15 PM EDT Name: Anh Toribio Do you have any of the following: Pacemaker, stents, heart valves, aneurysm clips? No Have you ever worked with metal or have you ever gotten metal in your eyes? No Have you had a colonoscopy in the last 30 days? No On dialysis? No Do you have any dermals or body piercing's? No or ? Do you wear an insulin pump or diabetic monitor? no RT Rogerio (R) documented in this encounter Plan of Treatment Upcoming Encounters Date Type Department Care Team (Late st Contact Info) Description 07/31/2023 8:00 AM EDT [facility] 132 [facility] [place] [address] 08/14/2023 6:10 PM EDT Pharmacy Pharmacy, [facility] 132 [facility] [place] [address] [facility] [address] [place] [address] 12/10/2023 9:00 AM EDT Office Visit Psychiatry, [place] [address] [place], [place] [address] Hansen, GRACE Donaldson 200 [facility] [place], [place] [address] Scheduled Procedures Name Priority Associated Diagnoses Date/Ti [...] 04/17/2017 Colorectal Cancer Screening 10/04/2025 Diabetes Screening 06/20/2026 06/21/2023, 0 04/03/2023, 10/25/2022, Additional history exists Lipid Panel 01/02/2027 01/02/2022 [...] filedocumented as of this encounter Care Teams Glass Processing Worker Relationship Specialty Start Date End Date Cj Watson MD [address] [place] [facility] [place] [address] PCP - General Family Medicine 08/18/19 documented as of this encounter
--- OUTSIDE RECORDS SUMMARY | 2023-08-22 23:35 | External Medical Summary | Summary of Care ---
Author Name Unknown Organization [facility] Address [address] [facility] [address] Phone [phone] Care Team Providers Care Mortgage Loan Assistant Name Role Phone Cj Watson MD Primary Care Provider [phone] Reason for Referral * Precert (Within 10 days (routine)) - Pending Review Specialty Diagnoses / Procedures Referred By Contpreethi t Referred To Contact Radiology Diagnoses Liver lesion Procedures MRI LIVER W WO CONTRAST May Villalta CRNP [address] [place] [address] Referral ID Status Reason Start Date Expiration Date V isits Requested Visits Authorized [id number] Pending Review 11/08/2023 999 999 Reason for Visit * Reason Onset Date Comments Information 08/08/2023 Encounter Details Date Type Department Care Team (Late st Contact Info) Description 08/08/2023 Telephone Gastroenterology, [facility] [address] [place] [address] May Villalta CRNP [address] [facility] [employer] [place] [address] Information Allergies Active Allergy Reactions Criticality Noted Date Comments Sulfa Antibiotics High 05/04/2021 Sulfa's- hives per pt report documented as of this encounter (statuses as of 08/09/2023) Medications Medication Sig Dispensed Refills Start Date [...] 400 mg before bedtime.. 60 Capsule 5 3 Active Sucralfate 1 GM Oral Tablet (Carafate) 3 Active Ferrous Sulfate 325 (65 Fe) MG Oral Tablet (Feosol) Take 1 Tablet by mouth in the morning and 1 Tablet before bedtime. 60 Tablet 11 3 Active Albumin Human 25 % Intravenous SolutionIndicatio ns:Alcoholic cirrhosis of liver with ascites (HCC) 25G IV pre-paracentesis followed by 25 G IV post paracentesis. May run at 100mL/hr. 200 mL 3 Active Additional Information Patient not taking.Reported on 11/01/2022 NIFEdipine 10 MG Oral Capsule (Procardia)Indica tions:Raynaud's disease without gangrene TAKE ONE CAPSULE BY MOUTH EVERY DAY IN THE MORNING. 30 Capsule 5 3 Active Additional Information Patient taking differently: "As needed", Reported on 06/21/2023 Gabapentin 800 MG Oral Tablet (Neurontin)Indica tions:Chronic left-sided thoracic back pain TAKE ONE TABLET BY MOUTH IN THE MORNING, ONE TABLET AT NOON AND ONE TABLET BEFORE BEDTIME 270 Tablet 1 3 Active Lidocaine 5 % External Patch (Lidoderm) daily. 3 Active traMADol HCl 50 MG Oral Tablet (Ultram) 1 Tablet. 3 Active Naltrexone HCl 50 MG Oral Tablet (Revia) 1 Tablet in the morning. 3 Active busPIRone HCl 5 MG Oral Tablet (Buspar) Take 1 Tablet by mouth in the morning and 1 Tablet at noon and 1 Tablet before bedtime. Take 7.5 mg every 8 hours as needed for anxiety. Active Omeprazole 40 MG Oral Capsule Delayed Release (PriLOSEC) TAKE 1 CAPSULE BY MOUTH TWICE DAILY 180 Capsule 1 3 Active Lactulose 10 GM/15ML Oral Solution (Constulose)Indic ations:Constipati on, unspecified constipation type TAKE 15ML BY MOUTH THREE A DAY NEEDED to have 2-3 bowel movements per day 1439 mL 11 3 Active Thiamine HCl 100 MG Oral Tablet (vitamin B-1)Indications:U ncomplicated alcohol dependence (HCC) Take 1 Tablet by mouth in the morning. 90 Tablet 3 3 Active Folic Acid 1 MG Oral TabletIndications :Uncomplicated alcohol dependence (HCC) TAKE 1 TABLET BY MOUTH ONCE DAILY 90 Tablet 3 4 Active Gabapentin 400 MG Oral Capsule (Neurontin)Indica tions:Burning pain TAKE 1 CAPSULE BY MOUTH THREE TIMES DAILY every morning, at noon, and before bedtime 270 Capsule 3 4 Active Furosemide 40 MG Oral Tablet (Lasix) TAKE 1 TABLET BY MOUTH EVERY MORNING 90 Tablet 2 4 Active Levothyroxine Sodium 150 MCG Oral Tablet (Levoxyl) TAKE 1 TABLET BY MOUTH EVERY MORNING. AT LEAST 30 MINUTES PRIOR TO BREAKFAST OR OTHER MEDICATIONS 90 Tablet 3 4 Active Spironolactone 25 MG Oral Tablet (Aldactone)Indica tions:Alcoholic cirrhosis of liver with ascites (HCC) TAKE 2 TABLETS BY MOUTH EVERY MORNING 180 Tablet 1 4 Active hydrOXYzine HCl 25 MG Oral Tablet Take 1 Tablet by mouth at bedtime as needed for Anxiety. 30 Tablet 2 4 Active Additional Information Patient taking differently:25 mg Oral QHS PRN, Anxiety,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le pumper, Reported on 06/21/2023 buPROPion HCl ER (XL) 150 MG Oral Tablet Extended Release 24 Hour (Wellbutrin XL) TAKE ONE TABLET BY MOUTH IN THE MORNING 90 Tablet 3 3 08/09/19 24 Discontinued documented as of this encounter (statuses as of 08/09/2023) Active Problems Problem Noted Date Diagnosed Date Pancytopenia 06/05/2022 Alcohol dependence 07/04/2019 Chronic thoracic back pain 07/04/2019 Hypothyroidism 07/04/2019 GERD (gastroesophageal reflux disease) 0 Adjustment disorder with depressed mood 07/04/19 20 documented as of this encounter (statuses as of 08/09/2023) Immunizations Name Administration Dates Next Due COVID-19 mRNA, LNP-s, No Pre serve, 2-Dose Series ([employer]) 05/19/2020 Hepatitis B, 20+ yrs 06/20/2022,08/02/2007 Pneumococcal [...] encounter Miscellaneous Notes * Telephone Encounter - Apryl Moise LPN - 08/09/2023 1:39 PM EDT DaughterNicolle is aware of results and recommendations. MRI is already scheduled for 11/26. * Telephone Encounter - Iraida Grey OSA - 08/09/2023 1:21 PM EDT Patient daughter returning the call to go over results and to schedule the next MRI. Please call her to review and schedule. * Telephone Encounter - May Villalta CRNP - 08/08/2023 4:53 PM EDT Pt's MRI liver 07/31/23 reviewed at HCC conference today: 1. Cirrhosis with portal hypertension. 2. Observation 1, segment 1, measures 5.5 x 3.3 cm compatible with LR-3 She had similar lesion noted on CT scan in December 2021, currently appears stable and suspected to be steatotic nodule. Recommendation is to have f/u MRI in 3 months time. Called and spoke w pt. Relayed information above. She is agreeable to have repeat MRI in 3 months time. She had been abstaining from ETOH since last visit 06/21/2023. Schedulers - pls assist w MRI apt in 3 months GRACE Tan documented in this encounter Plan of Treatment Upcoming Encounters Date Type Department Care Team (Late st Contact Info) Description 08/14/2023 6:10 PM EDT Pharmacy Pharmacy, [facility] 132 [facility] [place] [address] [facility] [address] [place] [address] 11/13/2023 3:15 PM EDT Imaging Radiology [facility] 1st [facility] 132 [facility] [place] [address] 12/10/2023 9:00 AM EDT Office Visit Psychiatry, [place] [address] [place] [address] Radha Hansen CRNP [address] [place] [place] [address] Scheduled Orders Name Type Priority Associated Diagnoses Orde r Schedule MRI LIVER W WO CONTRAST Medical Imaging Routine Liver lesion Expected: 11/08/2023, Expires: 09/06/2024 Scheduled Procedures Name Priority Associated Diagnoses Date/Ti [...] as of this encounter Visit Diagnoses Diagnosis Liver lesion- Primary Other specified disorders of liver documented in this encounter Care Teams Mortgage Loan Assistant Relationship Specialty Start Date End Date Cj Watson MD [address] [place] [address] PCP - General Family Medicine 08/18/19 documented as of this encounter
--- OUTSIDE RECORDS SUMMARY | 2023-08-22 23:35 | External Medical Summary | Summary of Care ---
Author Name Unknown Organization [facility] Address [address] [place] [facility] [place] [address] Phone [phone] Care Team Providers Care Director Of Government Sales Name Role Phone Cj Watson MD Primary Care Provider [phone] Reason for Visit * Reason Comments Outpatient Testing Encounter Details Date Type Department Care Team (Late st Contact Info) Description 08/13/2023 3:20 PM EDT Laboratory Laboratory, [place] [address] [place] [address] [place] [address] [place] [address] Other cirrhosis of liver (HCC) Allergies Active Allergy Reactions Criticality Noted Date Comments Sulfa Antibiotics High 05/04/2021 Sulfa's- hives per pt report documented as of this encounter (statuses as of 08/13/2023) Medications Medication Sig Dispensed Refills Start Date [...] differently:25 mg Oral QHS PRN, Anxiety,Needs to hand picker, Reported on 06/21/2023 buPROPion HCl ER (XL) 150 MG Oral Tablet Extended Release 24 Hour (Wellbutrin XL) TAKE 1 TABLET BY MOUTH EVERY MORNING 90 Tablet 3 08/09/2023 Active documented as of this encounter (statuses as of 08/13/2023) Active Problems Problem Noted Date Diagnosed Date Pancytopenia 06/05/2022 Alcohol dependence 07/04/2019 Chronic thoracic back pain 07/04/2019 Hypothyroidism 07/04/2019 GERD (gastroesophageal reflux disease) 0 Adjustment disorder with depressed mood 07/04/19 20 documented as of this encounter (statuses as of 08/13/2023) Immunizations Name Administration Dates Next Due COVID-19 mRNA, LNP-s, No Pre serve, 2-Dose Series ([employer]) 05/19/2020 Hepatitis B, 20+ yrs 06/20/2022,08/02/2007 Pneumococcal [...] Description 08/14/2023 6:10 PM EDT Pharmacy Pharmacy, [facility] 132 [facility] [place] [address] [facility] [address] [place] [address] 11/13/2023 3:15 PM EDT Imaging Radiology [facility] 1st [facility] 132 [facility] [place] [address] 12/10/2023 9:00 AM EDT Office Visit Psychiatry, [place] [address] [place] [address] Radha Hansen CRNP [address] [place] [address] Pending Results Name Type Priority Associated Diagnoses Date /Time HEPATIC FUNCTION PANEL Lab Routine Other cirrhosis of liver (HCC) 08/13/2023 2:47 PM EDT Scheduled Procedures Name Priority Associated Diagnoses [...] as of this encounter Visit Diagnoses Diagnosis Other cirrhosis of liver (HCC) documented in this encounter Care Teams Director Of Government Sales Relationship Specialty Start Date End Date Cj Watson MD [address] [place] [address] PCP - General Family Medicine 08/18/19 documented as of this encounter
--- OUTSIDE RECORDS SUMMARY | 2023-08-22 23:35 | External Medical Summary | Summary of Care ---
Author Name Unknown Organization [facility] Address [address] [facility] [address] Phone [phone] Care Team Providers Care Senior Tax Manager Name Role Phone Cj Watson MD Primary Care Provider [phone] Reason for Referral * Precert (Within 10 days (routine)) - Pending Review Specialty Diagnoses / Procedures Referred By Contpreethi t Referred To Contact Radiology Diagnoses Liver lesion Procedures MRI LIVER W WO CONTRAST May Villalta CRNP [address] [place] [address] Referral ID Status Reason Start Date Expiration Date V isits Requested Visits Authorized [id number] Pending Review 11/08/2023 999 999 Reason for Visit * Reason Onset Date Comments Information 08/08/2023 Encounter Details Date Type Department Care Team (Late st Contact Info) Description 08/08/2023 Telephone Gastroenterology, [facility] [address] [place] [address] May Villalta CRNP [address] [place] [address] Information Allergies Active Allergy Reactions Criticality Noted Date Comments Sulfa Antibiotics High 05/04/2021 Sulfa's- hives per pt report documented as of this encounter (statuses as of 08/08/2023) Medications Medication Sig Dispensed Refills Start Date [...] differently:25 mg Oral QHS PRN, Anxiety,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 pulling 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 operator, Reported on 06/21/2023 documented as of this encounter (statuses as of 08/08/2023) Active Problems Problem Noted Date Diagnosed Date Pancytopenia 06/05/2022 Alcohol dependence 07/04/2019 Chronic thoracic back pain 07/04/2019 Hypothyroidism 07/04/2019 GERD (gastroesophageal reflux disease) 0 Adjustment disorder with depressed mood 07/04/19 20 documented as of this encounter (statuses as of 08/08/2023) Immunizations Name Administration Dates Next Due COVID-19 mRNA, LNP-s, No Pre serve, 2-Dose Series ([employer]) 05/19/2020 Hepatitis B, 20+ yrs 06/20/2022,08/02/2007 Pneumococcal [...] encounter Miscellaneous Notes * Telephone Encounter - May Villalta CRNP [...] Description 08/14/2023 6:10 PM EDT Pharmacy Pharmacy, [facility] 132 [facility] [place] [address] [facility] 132 [facility] [place] [address] 12/10/2023 9:00 AM EDT Office Visit Psychiatry, [facility] [address] [place] [address] Hansen, GRACE Donaldson [address] [place] [address] Scheduled Orders Name Type Priority Associated Diagnoses [...] 08/15/2022 06/20/2022, 08/02/2007 COVID-19 Vaccine (3 - 2022-24 season) 2022 06/09/2020, 05/19/2020 TSH 01/02/2023 01/02/2022, [...] liver documented in this encounter Care Teams Senior Tax Manager Relationship Specialty Start Date End Date Cj Watson MD [address] [place] [address] PCP - General Family Medicine 08/18/19 documented as of this encounter
--- OUTSIDE RECORDS SUMMARY | 2023-08-22 23:35 | External Medical Summary | Summary of Care ---
Author Name Unknown Organization [facility] Address [address] [facility] [place] [address] Phone [phone] Care Team Providers Care Director Of Enterprise Applications Name Role Phone Cj Watson MD Primary Care Provider [phone] Reason for Visit * Reason Onset Date Comments Test Results 08/20/2023 Encounter Details Date Type Department Care Team (Late st Contact Info) Description 08/20/2023 Telephone Gastroenterology, [facility] [address] [place] [address] May Villalta CRNP [address] [place] [address] Test Results Allergies Active Allergy Reactions Criticality Noted Date Comments Sulfa Antibiotics High 05/04/2021 Sulfa's- hives per pt report documented as of this encounter (statuses as of 08/20/2023) Medications Medication Sig Dispensed Refills Start Date [...] differently:25 mg Oral QHS PRN, Anxiety,Needs to mixing picker tender, Reported on 06/21/2023 buPROPion HCl ER (XL) [...] as of this encounter (statuses as of 08/20/2023) Active Problems Problem Noted Date Diagnosed Date Pancytopenia 06/05/2022 Alcohol dependence 07/04/2019 Chronic thoracic back pain 07/04/2019 Hypothyroidism 07/04/2019 GERD (gastroesophageal reflux disease) 0 Adjustment disorder with depressed mood 07/04/19 20 documented as of this encounter (statuses as of 08/20/2023) Immunizations Name Administration Dates Next Due COVID-19 mRNA, LNP-s, No Pre serve, 2-Dose Series ([employer]) 05/19/2020 Hepatitis B, 20+ yrs 06/20/2022,08/02/2007 Pneumococcal [...] Care Team (Late st Contact Info) Description 09/11/2023 6:10 PM EDT Pharmacy Pharmacy, [facility] 132 [facility] [place] [address] [facility] [address] [place] [address] 11/13/2023 3:15 PM EDT Imaging Radiology [facility] 1st Floor, [place] [address] [place] [address] 12/10/2023 9:00 AM EDT Office Visit Psychiatry, [place] [address] [place] [address] HansenRadha CRNP [address] [place] [address] Scheduled Procedures Name Priority Associated Diagnoses Date/Ti [...] filedocumented as of this encounter Care Teams Director Of Enterprise Applications Relationship Specialty Start Date End Date Cj Watson MD [address] [place] [facility] [place] [address] PCP - General Family Medicine 08/18/19 documented as of this encounter
--- OUTSIDE RECORDS SUMMARY | 2023-08-22 23:35 | External Medical Summary | Summary of Care ---
Author Name Unknown Organization [facility] Address [address] [facility] [place] [address] Phone [phone] Care Team Providers Care Blue Print Control Clerk Name Role Phone Cj Watson MD Primary Care Provider [phone] Reason for Visit * Reason Onset Date Comments Test Results 06/27/2023 Other 06/27/2023 Encounter Details Date Type Department Care Team (Late st Contact Info) Description 06/27/2023 Telephone Gastroenterology, [facility] [address] [place] [address] May Villalta CRNP [address] [place] [address] Test Results; Other Allergies Active Allergy Reactions Criticality Noted Date Comments Sulfa Antibiotics High 05/04/2021 Sulfa's- hives per pt report documented as of this encounter (statuses as of 07/09/2023) Medications Medication Sig Dispensed Refills Start Date End Date Status B-12 1000 MCG Oral Capsule Take 1 Capsule by mouth in the morning. 0 Active D3-1000 25 MCG (1000 UT) Oral Capsule (Cholecalciferol) Take 1 Capsule by mouth once a week. Wednesdays 0 Active Magnesium Oxide 400 MG Oral Capsule Take 1 Capsule by mouth in the morning and 1 Capsule before bedtime. Take by mouth 400 mg in the morning AND 400 mg before bedtime.. 60 Capsule 5 04/14/2022 Active Sucralfate 1 GM Oral Tablet (Carafate) 0 06/02/2022 Active Ferrous Sulfate 325 (65 Fe) MG Oral Tablet (Feosol) Take 1 Tablet by mouth in the morning and 1 Tablet before bedtime. 60 Tablet 11 06/20/2022 Active Albumin Human 25 % Intravenous SolutionIndications :Alcoholic cirrhosis of liver with ascites (HCC) 25G IV pre-paracentesis followed by 25 G IV post paracentesis. May run at 100mL/hr. 200 mL 0 07/07/2022 Active Additional Information Patient not taking.Reported [...] Lidocaine 5 % External Patch (Lidoderm) daily. 0 12/20/2022 Active traMADol HCl 50 MG Oral Tablet (Ultram) 1 Tablet. 0 12/20/2022 Active Naltrexone HCl 50 MG Oral Tablet (Revia) 1 Tablet in the morning. 0 11/23/2022 Active busPIRone HCl 5 MG Oral Tablet (Buspar) Take 1 Tablet by mouth in the morning and 1 Tablet at noon and 1 Tablet before bedtime. Take 7.5 mg every 8 hours as needed for anxiety. 0 Active Omeprazole 40 MG Oral Capsule Delayed [...] differently:25 mg Oral QHS PRN, Anxiety,Needs to slat pickler, Reported on 06/21/2023 documented as of this encounter (statuses as of 07/09/2023) Active Problems Problem Noted Date Diagnosed Date Pancytopenia 06/05/2022 Alcohol dependence 07/04/2019 Chronic thoracic back pain 07/04/2019 Hypothyroidism 07/04/2019 GERD (gastroesophageal reflux disease) 0 Adjustment disorder with depressed mood 07/04/19 20 documented as of this encounter (statuses as of 07/09/2023) Immunizations Name Administration Dates Next Due COVID-19 mRNA, LNP-s, No Pre serve, 2-Dose Series ([employer]) 05/19/2020 Hepatitis B, 20+ yrs 06/20/2022,08/02/2007 Pneumococcal [...] encounter Miscellaneous Notes * Telephone Encounter - Sailaja Boyd RN - 07/09/2023 2:35 PM EDT Notified patient. States that since ultrasound, abdomen is more distended. No SOB. Last weight at home was 154 lbs but does not weigh herself daily. She wanted you to be aware that her abdomen is more distended. * Telephone Encounter - May Villalta CRNP - 07/09/2023 12:34 PM EDT No indication for paracentesis as not adequate amt of ascites to be removed. GRACE Tan * Telephone Encounter - Sailaja Boyd RN - 07/09/2023 11:57 AM EDT May, please advise. Per US, states small volume ascites present. * Telephone Encounter - Buffy Cárdenas OSA - 07/09/2023 10:42 AM EDT Patient is calling requesting order for paracentesis Please assist * Telephone Encounter - Lorri Maki RN - 06/27/2023 3:52 PM EDT Addressed in previous TE under FP Pt will call to schedule MRI,number was given. * Telephone Encounter - Sailaja Boyd RN - 06/27/2023 3:43 PM EDT ----- Message from GRACE Garcia sent at 06/27/2023 9:29 AM EDT ----- Left message on patient's phone to call us back. Nurses, when patient calls back please inform her that abdominal ultrasound suboptimal to evaluate her liver for masses. I would recommend a follow-upMRI liver. Please transfer to scheduling if she is agreeable to schedule. GRACE Tan documented in this encounter Plan of Treatment Upcoming Encounters Date Type Department Care Team (Late st Contact Info) Description 07/17/2023 9:00 AM EDT Office Visit Pharmacy, [facility] 132 [facility] [place] [address] [facility] [place] [address] [address] [place] [address] 07/31/2023 8:00 AM EDT Imaging Radiology [facility] [place] [address] [place] [address] 12/10/2023 9:00 AM EDT Office Visit [facility]iat[facility], [facility] [place] [address] [address] Radha Hansen CRNP 200 [facility] [place] [address] Scheduled Procedures Name Priority Associated Diagnoses Date/Ti [...] filedocumented as of this encounter Care Teams Blue Print Control Clerk Relationship Specialty Start Date End Date Cj Watson MD [address] [place] [address] PCP - General Family Medicine 08/18/19 documented as of this encounter
--- OUTSIDE RECORDS SUMMARY | 2023-08-22 23:35 | External Medical Summary | Summary of Care ---
Author Name Unknown Organization [facility] [address] [facility] [address] Phone [phone] Care Team Providers Care Tin Roller Hot Mill Name Role Phone Loco Watson MD Primary Care Provider [phone] Reason for Visit * Reason Comments eRx-Medication Refill Encounter Details Date Type Department Care Team (Late st Contact Info) Description 08/19/2023 Refill [facility] [address] [place] [address] Loco Watson MD [address] [place] [address] Chronic left-sided thoracic back pain Allergies Active Allergy Reactions Criticality Noted Date [...] mg Oral QHS PRN, Anxiety,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 up worker, Reported on 06/21/2023 buPROPion HCl ER (XL) 150 MG Oral Tablet Extended Release 24 Hour (Wellbutrin XL) TAKE 1 TABLET BY MOUTH EVERY MORNING 90 Tablet 3 4 Active Gabapentin 800 MG Oral Tablet (Neurontin)Indica tions:Chronic left-sided thoracic back pain TAKE 1 TABLET BY MOUTH THREE TIMES DAILY EVERY MORNING, AT NOON, AND BEFORE BEDTIME 270 Tablet 1 4 Active Gabapentin 800 MG Oral Tablet (Neurontin)Indica tions:Chronic left-sided thoracic back pain TAKE ONE TABLET BY MOUTH IN THE MORNING, ONE TABLET AT NOON AND ONE TABLET BEFORE BEDTIME 270 Tablet 1 3 08/20/19 24 Discontinued documented as of this encounter [...] mRNA, LNP-s, No Pre serve, 2-Dose Series (goviral) 05/19/2020 Hepatitis B, 20+ yrs 06/20/2022,08/02/2007 Pneumococcal [...] encounter Miscellaneous Notes * Telephone Encounter - Loco Watson MD - 08/20/2023 4:51 PM EDTSigned Prescriptions: Disp Refills Gabapentin 800 MG Oral Tablet (Neurontin) 270 Ta*1 Sig: TAKE 1 TABLET BY MOUTH THREE TIMES DAILY EVERY MORNING, AT NOON, AND BEFORE BEDTIMEAuthorizing Provider: LOCO WATSON * Telephone Encounter - Jaqueline Nino LPN - 08/20/2023 1:58 PM EDT Please advise, we received a paper request for this prescription as well. * Telephone Encounter - Larissa Burks - 08/20/2023 4:35 AM EDTPending Prescriptions: Disp Refills Gabapentin 800 MG Oral Tablet [Pharmacy Me*270 Ta*0 Sig: TAKE 1 TABLET BY MOUTH THREE TIMES DAILY EVERY MORNING, AT NOON, AND BEFORE BEDTIME documented in this encounter Plan of Treatment Upcoming Encounters Date Type Department Care Team (Late st Contact Info) Description 09/11/2023 6:10 PM EDT Pharmacy Pharmacy, [address] [place] [address] [facility] [address] [place] [address] 11/13/2023 3:15 PM EDT Imaging Radiology [facility] [address] [place] [address] 12/10/2023 9:00 AM EDT Office Visit Psychiatry, [place] [address] [place] [address] Radha Hansen CRNP 200 [facility] [place] [address] Scheduled Procedures Name Priority Associated Diagnoses Date/Ti [...] as of this encounter Visit Diagnoses Diagnosis Chronic left-sided thoracic back pain documented in this encounter Care Teams Tin Roller Hot Mill Relationship Specialty Start Date End Date Loco Watson MD [address] [place] [address] PCP - General Family Medicine 08/18/19 documented as of this encounter
--- OUTSIDE RECORDS SUMMARY | 2023-08-22 23:35 | External Medical Summary | Summary of Care ---
Author Name Unknown Organization [facility] Address [address] [facility] [address] Phone [phone] Care Team Providers Care Spd Tech Name Role Phone Cj Watson MD Primary Care Provider [phone] Reason for Referral * Precert (Within 10 days (routine)) - Pending Review Specialty Diagnoses / Procedures Referred By Contpreethi t Referred To Contact Radiology Diagnoses Liver lesion Procedures MRI LIVER W WO CONTRAST May Villalta CRNP [address] [employer] [place] [address] Referral ID Status Reason Start Date Expiration Date V isits Requested Visits Authorized [id number] Pending Review 11/08/2023 999 999 Reason for Visit * Reason Onset Date Comments Information 08/08/2023 Encounter Details Date Type Department Care Team (Late st Contact Info) Description 08/08/2023 Telephone Gastroenterology, [facility] [address] [place] [address] May Villalta CRNP [address] [place] [address] Information Allergies Active Allergy Reactions Criticality Noted [...] differently:25 mg Oral QHS PRN, Anxiety,Needs to cook pickled meat, Reported on 06/21/2023 buPROPion HCl ER (XL) [...] encounter Miscellaneous Notes * Telephone Encounter - Iraida Grey OSA [...] Description 08/14/2023 6:10 PM EDT Pharmacy Pharmacy, [facility] [address] [facility] [place] [address] [facility] [address] [facility] [place] [address] 11/13/2023 3:15 PM EDT Imaging Radiology [facility] 1st [facility] [address] [place] [address] 12/10/2023 9:00 AM EDT [facility] [address] Radha Hansen CRNP 200 [facility] [place] [address] Scheduled Orders Name Type Priority Associated Diagnoses [...] liver documented in this encounter Care Teams Spd Tech Relationship Specialty Start Date End Date Cj Watson MD [address] [place] [address] PCP - General Family Medicine 08/18/19 documented as of this encounter
--- OUTSIDE RECORDS SUMMARY | 2023-08-22 23:35 | External Medical Summary | Summary of Care ---
Author Name Unknown Organization [facility] Address [address] [facility] [place] [address] Phone [phone] Care Team Providers Care Hydrographical Technical Officer Name Role Phone Cj Watson MD Primary Care Provider [phone] Encounter Details Date Type Department Care Team (Late st Contact Info) Description 08/16/2023 Orders Only Gastroenterology, [facility] [address] [place] [address] May Villalta CRNP [address] [place] [address] Abdominal swelling* Allergies Active Allergy Reactions Criticality Noted Date Comments Sulfa Antibiotics High 05/04/2021 Sulfa's- hives per pt report documented as of this encounter (statuses as of 08/16/2023) Medications Medication Sig Dispensed Refills Start Date [...] mg Oral QHS PRN, Anxiety,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ing supervisor, Reported on 06/21/2023 buPROPion HCl ER (XL) 150 MG Oral Tablet Extended Release 24 Hour (Wellbutrin XL) TAKE 1 TABLET BY MOUTH EVERY MORNING 90 Tablet 3 08/09/2023 Active documented as of this encounter (statuses as of 08/16/2023) Active Problems Problem Noted Date Diagnosed Date Pancytopenia 06/05/2022 Alcohol dependence 07/04/2019 Chronic thoracic back pain 07/04/2019 Hypothyroidism 07/04/2019 GERD (gastroesophageal reflux disease) 0 Adjustment disorder with depressed mood 07/04/19 20 documented as of this encounter (statuses as of 08/16/2023) Immunizations Name Administration Dates Next Due COVID-19 mRNA, LNP-s, No Pre serve, 2-Dose Series ([employer]) 05/19/2020 Hepatitis B, 20+ yrs 06/20/2022,08/02/2007 Pneumococcal [...] Description 09/11/2023 6:10 PM EDT Pharmacy Pharmacy, [address] [place] [address] [facility] [address] [place] [address] 11/13/2023 3:15 PM EDT Imaging Radiology [facility] [address] [place] [address] 12/10/2023 9:00 AM EDT Office Visit Psychiatry, [place] 200 [facility] [place] [address] Radha Hansen CRNP 200 [facility] [place] [address] Scheduled Orders Name Type Priority Associated Diagnoses Orde r Schedule BASIC METABOLIC PANEL Lab Routine Abdominal swelling Expected: 08/16/2023, Expires: 08/15/2024 Scheduled Procedures Name Priority Associated Diagnoses Date/Ti [...] as of this encounter Visit Diagnoses Diagnosis Abdominal swelling- Primary Abdominal or pelvic swelling, mass or lump, unspecified site documented in this encounter Care Teams Hydrographical Technical Officer Relationship Specialty Start Date End Date Cj Watson MD [address] [place] [address] PCP - General Family Medicine 08/18/19 documented as of this encounter
--- OUTSIDE RECORDS SUMMARY | 2023-08-22 23:35 | External Medical Summary | Summary of Care ---
Author Name Unknown Organization [facility] Address [address] [facility] [place] [address] Phone [phone] Care Team Providers Care Asbestos Siding Installer Name Role Phone Cj Watson MD Primary Care Provider [phone] Reason for Visit * Reason Comments Outpatient Testing Encounter Details Date Type Department Care Team (Late st Contact Info) Description 08/20/2023 1:50 PM EDT Laboratory [facility], [facility] [id number] [facility] 132 [facility] [place] [address] Abdominal swelling Allergies Active Allergy Reactions Criticality Noted Date [...] differently:25 mg Oral QHS PRN, Anxiety,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er packer, Reported on 06/21/2023 buPROPion HCl ER (XL) [...] mRNA, LNP-s, No Pre serve, 2-Dose Series ([employer]) 05/19/2020 Hepatitis B, 20+ yrs 06/20/2022,08/02/2007 Pneumococcal [...] Description 09/11/2023 6:10 PM EDT Pharmacy Pharmacy, [facility] [address] [facility] 132 [facility] [place] [address] 11/13/2023 3:15 PM EDT Imaging Radiology [address] 132 [facility] [place] [address] 12/10/2023 9:00 AM EDT Office Visit Psychiatry, [place] [address] [place] [address] Radha Hansen CRNP [address] [place] [address] Pending Results Name Type Priority Associated Diagnoses Date /Time BASIC METABOLIC PANEL Lab Routine Abdominal swelling 08/20/2023 1:53 PM EDT Scheduled Procedures Name Priority Associated [...] of this encounter Visit Diagnoses Diagnosis Abdominal swelling Abdominal or pelvic swelling, mass or lump, unspecified site documented in this encounter Care Teams Asbestos Siding Installer Relationship Specialty Start Date End Date Cj Watson MD [address] [place] [address] PCP - General Family Medicine 08/18/19 documented as of this encounter
--- OUTSIDE RECORDS SUMMARY | 2023-08-22 23:35 | External Medical Summary | Summary of Care ---
Author Name Unknown Organization [facility] Address [address] [facility] [place] [address] Phone [phone] Care Team Providers Care Leadership Development Consultant Name Role Phone Cj Watson MD Primary Care Provider [phone] Reason for Visit * Reason Onset Date Comments Test Results 06/27/2023 Other 06/27/2023 Encounter Details Date Type Department Care Team (Late st Contact Info) Description 06/27/2023 Telephone Gastroenterology, [facility] [address] [place] [address] May Wilson CRNP [address] [place] [address] Test Results; Other Allergies Active Allergy Reactions [...] differently:25 mg Oral QHS PRN, Anxiety,Needs to sweet pickled fruit maker, Reported on 06/21/2023 documented as of this [...] mRNA, LNP-s, No Pre serve, 2-Dose Series ([employer]) 05/19/2020 Hepatitis B, 20+ yrs 06/20/2022,08/02/2007 Pneumococcal [...] as of this encounter Miscellaneous Notes * Addendum Note - May Wilson CRNP - 07/09/2023 3:00 PM EDTAddended by: MAY WILSON on: 07/09/2023 03:00 PM Modules accepted: Orders * Telephone Encounter - May Wilson CRNP - 07/09/2023 2:59 PM EDT Pls advise pt to take daily weights. If change more than 5lbs in 2 days, will repeat US w ascites check. I will also order KUB to eval possible gaseous distension GRACE Tan * Telephone Encounter - Sailaja Boyd RN - 07/09/2023 2:35 PM EDT Notified patient. States that since ultrasound, abdomen is more distended. No SOB. Last weight at home was 154 lbs but does not weigh herself daily. She wanted you to be aware that her abdomen is more distended. * Telephone Encounter - May Wilson CRNP - 07/09/2023 12:34 PM EDT No [...] 07/17/2023 9:00 AM EDT Office Visit Pharmacy, [facility] 132 [facility] [place] [address] [facility] 132 [facility] [place] [address] 07/31/2023 8:00 AM EDT Imaging [facility] [address] [place] [address] 12/10/2023 9:00 AM EDT Office Visit Psychiatry, [place] [address] [place] [address] Hansen, GRACE Donaldson [address] [place] [address] Scheduled Orders Name Type Priority Associated Diagnoses Orde r Schedule XR ABDOMEN 1 VIEW Medical Imaging Routine Abdominal distension (gaseous) Ordered: 07/09/2023 Scheduled Procedures Name Priority Associated Diagnoses Date/Ti [...] of this encounter Visit Diagnoses Diagnosis Abdominal distension (gaseous)- Primary Flatulence, eructation, and gas pain documented in this encounter Care Teams Leadership Development Consultant Relationship Specialty Start Date End Date Cj Watson MD [address] [place] [address] PCP - General Family Medicine 08/18/19 documented as of this encounter
--- OUTSIDE RECORDS SUMMARY | 2023-08-22 23:35 | External Medical Summary | Summary of Care ---
Author Name Unknown Organization [facility] Address [address] [facility] [place] [address] Phone [phone] Care Team Providers Care Commercial Singer Name Role Phone Cj Watson MD Primary Care Provider [phone] Reason for Visit * Reason Onset Date Comments Advice 07/27/2023 Encounter Details Date Type Department Care Team (Late st Contact Info) Description 07/27/2023 Telephone Gastroenterology, [facility] [address] [place] [address] May Villalta CRNP [address] [place] [address] Advice Allergies Active Allergy Reactions Criticality Noted Date Comments Sulfa Antibiotics High 05/04/2021 Sulfa's- hives per pt report documented as of this encounter (statuses as of 07/31/2023) Medications Medication Sig Dispensed Refills Start Date [...] Oral QHS PRN, Anxiety,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 up driver, Reported on 06/21/2023 documented as of this encounter (statuses as of 07/31/2023) Active Problems Problem Noted Date Diagnosed Date Pancytopenia 06/05/2022 Alcohol dependence 07/04/2019 Chronic thoracic back pain 07/04/2019 Hypothyroidism 07/04/2019 GERD (gastroesophageal reflux disease) 0 Adjustment disorder with depressed mood 07/04/19 20 documented as of this encounter (statuses as of 07/31/2023) Immunizations Name Administration Dates Next Due COVID-19 mRNA, LNP-s, No Pre serve, 2-Dose Series ([employer]) 05/19/2020 Hepatitis B, 20+ yrs 06/20/2022,08/02/2007 Pneumococcal [...] Telephone Encounter - May Villalta CRNP - 07/31/2023 4:11 PM EDT MRI already completed GRACE Tan * Telephone Encounter - Anayeli Ahmadi OSA - 07/27/2023 3:40 PM EDT Anh called and asked if May Villalta would prescribe her anxiety medication before her MRI on Sunday. documented in this encounter Plan of Treatment Upcoming Encounters Date Type Department Care Team (Late st Contact Info) Description 08/14/2023 6:10 PM EDT Pharmacy Pharmacy, [facility] [address] [place] [address] [facility] [place] [address] 12/10/2023 9:00 AM EDT Office Visit Psychiatry, [address] [place] [address] Radha Hansen CRNP 200 [place] [address] Scheduled Procedures Name Priority Associated Diagnoses Date/Ti [...] filedocumented as of this encounter Care Teams Commercial Singer Relationship Specialty Start Date End Date Cj Watson MD [address] [place] [address] PCP - General Family Medicine 08/18/19 documented as of this encounter
--- OUTSIDE RECORDS SUMMARY | 2023-08-22 23:35 | External Medical Summary | Summary of Care ---
Author Name Unknown Organization [facility] Address [address] [facility] [place] [address] Phone [phone] Care Team Providers Care Tourist Escort Name Role Phone Cj Watson MD Primary Care Provider [phone] Reason for Visit * Reason Onset Date Comments Test Results 06/27/2023 Other 06/27/2023 Encounter Details Date Type Department Care Team (Late st Contact Info) Description 06/27/2023 Telephone Gastroenterology, [facility] [address] [place] [address] May Villalta CRNP [address] [place] [address] Test Results; Other Allergies Active Allergy Reactions [...] differently:25 mg Oral QHS PRN, Anxiety,Needs to grain picker, Reported on 06/21/2023 documented as of this [...] mRNA, LNP-s, No Pre serve, 2-Dose Series ([employer]) 05/19/2020 Hepatitis B, 20+ yrs 06/20/2022,08/02/2007 Pneumococcal [...] Boyd RN - 07/09/2023 11:57 AM EDT tanesha Olvera advise. Per US, states small volume ascites [...] 07/17/2023 9:00 AM EDT Office Visit Pharmacy, [facility] 132 [facility] [place] [address] [facility] 132 [facility] [place] [address] 07/31/2023 8:00 AM EDT Imaging Radiology [facility]st [facility] 132 [facility] [place] [address] 12/10/2023 9:00 AM EDT Office Visit Psychiatry, [place] [address] [place] [address] Radha Hansne CRNP 200 [facility] [place] [address] Scheduled Procedures Name Priority Associated Diagnoses Date/Ti [...] filedocumented as of this encounter Care Teams Tourist Escort Relationship Specialty Start Date End Date Cj Watson MD [address] [place] [address] PCP - General Family Medicine 08/18/19 documented as of this encounter
--- OUTSIDE RECORDS SUMMARY | 2023-08-22 23:35 | External Medical Summary | Summary of Care ---
Author Name Unknown Organization [facility] Address [address] [facility] [place] [address] Phone [phone] Care Team Providers Care Replenishment Analyst Name Role Phone Cj Watson MD Primary Care Provider [phone] Reason for Visit * Reason Onset Date Comments Test Results 08/20/2023 Encounter Details Date Type Department Care Team (Late st Contact Info) Description 08/20/2023 Telephone Gastroenterology, [facility] [address] [place] [address] May Villalta CRNP [address] [place] [address] Test Results Allergies Active Allergy Reactions Criticality [...] differently:25 mg Oral QHS PRN, Anxiety,Needs to tile picker, Reported on 06/21/2023 buPROPion HCl ER [...] mRNA, LNP-s, No Pre serve, 2-Dose Series ([employer]) 05/19/2020 Hepatitis B, 20+ yrs 06/20/2022,08/02/2007 Pneumococcal [...] encounter Miscellaneous Notes * Telephone Encounter - Johanna Frederick CPhT - 08/21/2023 10:08 AM EDT Pharmacy calling on med problem with gastro med. Transferred to specialty Thank you, Shasha Frederick Package Crimper [employer] [facility] 08/21/2023,10:08 AM [...] Description 09/11/2023 6:10 PM EDT Pharmacy Pharmacy, [facility] [address] [facility] [place] [address] [facility] [place] [address] [facility] [facility] [place] [address] 11/13/2023 3:15 PM EDT Imaging Radiology [facility] 1st [facility] [address] [place] [address] 12/10/2023 9:00 AM EDT Office Visit Psychiatry, [facility] [address] [facility] [place] [address] HansenRadha CRNP [address] [facility] [place] [address] Scheduled Procedures Name Priority Associated Diagnoses Date/Ti [...] filedocumented as of this encounter Care Teams Replenishment Analyst Relationship Specialty Start Date End Date Cj Watson MD [address] [place] [address] PCP - General Family Medicine 08/18/19 documented as of this encounter
--- OUTSIDE RECORDS SUMMARY | 2023-08-22 23:35 | External Medical Summary ---
Author Name Unknown Address Unknown Organization [id number]:[facility] - [address] [place] [address] Laboratory Report Ordering Provider Test Date Status KATIE NARVAEZ 08/20/2023 13:53:23 Final Observation Date Value Abnormality Reference (Units ) Status BUN 08/20/2023 13:53:23 4 Below low normal 6-20 (mg/dL) Final Creatinine 08/20/2023 13:53:23 0.7 0.5-1.0 (mg/dL) Final Glomerular filtration rate/1.73 sq M.predicted [Volume Rate/Area] in Serum, Plasma or Blood by Creatinine-based formula (CKD-EPI) 08/20/2023 13:53:23 >90 >=60 (mL/min) Final eGFR is calculated based on the CKD-EPI 2020 equation Sodium 08/20/2023 13:53:23 129 Below low normal 135 -146 (mmol/L) Final Potassium 08/20/2023 13:53:23 2.6 Below low normal 3.5 -5.1 (mmol/L) Final Cl 08/20/2023 13:53:23 90 Below low normal 98- 107 (mmol/L) Final CO2 08/20/2023 13:53:23 31 22-32 (mmo l/L) Final Anion gap 08/20/2023 13:53:23 8 7-15 (mmol /L) Final Glucose 08/20/2023 13:53:23 111 70-120 (mg /dL) Final Calcium 08/20/2023 13:53:23 8.4 8.4-10.2 ( mg/dL) Final Performing Location [facility] 0 - [address] [place] [address]
--- OUTSIDE RECORDS SUMMARY | 2023-08-22 23:35 | External Medical Summary | Summary of Care ---
Author Name Unknown Organization [facility] Address [address] [facility] [place] [address] Phone [phone] Care Team Providers Care Stock Worker Name Role Phone Cj Watson MD Primary Care Provider [phone] Reason for Visit * Reason Onset Date Comments Test Results 06/27/2023 Other 06/27/2023 Encounter Details Date Type Department Care Team (Late st Contact Info) Description 06/27/2023 Telephone Gastroenterology, [facility] [address] [place] [address] May Wilson CRNP [address] [place] [address] Test Results; Other Allergies Active Allergy Reactions [...] mRNA, LNP-s, No Pre serve, 2-Dose Series ([employer]) 05/19/2020 Hepatitis B, 20+ yrs 06/20/2022,08/02/2007 Pneumococcal [...] Encounter - Sailaja Boyd RN - 07/09/2023 4:22 PM EDT Patient notified. Verbalizes understanding. * Addendum Note - May Wilson CRNP [...] 07/17/2023 9:00 AM EDT Office Visit [facility], [facility] [address] [facility] [address] [facility] [place] [address] 07/31/2023 8:00 AM EDT Imaging Radiology [facility] 1st [facility] [address] [facility] [place] [address] 12/10/2023 9:00 AM EDT Office Visit Psychiatry, [facility] [address] [facility] [place] [address] HansenRadha CRNP [address] [place] [address] Scheduled Orders Name Type Priority Associated Diagnoses [...] pain documented in this encounter Care Teams Stock Worker Relationship Specialty Start Date End Date Cj Watson MD [address] [place] [address] PCP - General Family Medicine 08/18/19 documented as of this encounter
--- OUTSIDE RECORDS SUMMARY | 2023-08-22 23:35 | External Medical Summary | Summary of Care ---
Author Name Unknown Organization [facility] [address] [facility] [address] Phone [phone] Care Team Providers Care Business Operations Consultant Name Role Phone Loco Watson MD Primary Care Provider [phone] Reason for Visit * Reason Comments eRx-Medication Refill Encounter Details Date Type Department Care Team (Late st Contact Info) Description 08/08/2023 Refill [facility] [address] [place] [address] Loco Watson MD [address] [place] [address] Allergies Active Allergy Reactions Criticality Noted Date [...] differently:25 mg Oral QHS PRN, Anxiety,Needs to moss picker, Reported on 06/21/2023 buPROPion HCl ER (XL) 150 MG Oral Tablet Extended Release 24 Hour (Wellbutrin XL) TAKE 1 TABLET BY MOUTH EVERY MORNING 90 Tablet 3 4 Active buPROPion HCl ER (XL) 150 MG Oral [...] mRNA, LNP-s, No Pre serve, 2-Dose Series ([employer]) 05/19/2020 Hepatitis B, 20+ yrs 06/20/2022,08/02/2007 Pneumococcal [...] encounter Miscellaneous Notes * Telephone Encounter - Broderick Stallworth RPh - 08/09/2023 9:37 AM EDTSigned Prescriptions: Disp Refills buPROPion HCl ER (XL) 150 MG Oral Tablet E*90 Tab*3 Sig: TAKE 1 TABLET BY MOUTH EVERY MORNINGAuthorizing Provider: LOCO WATSON User: BRODERICK STALLWORTH--- documented in this encounter Plan of Treatment Upcoming Encounters Date Type Department Care Team (Late st Contact Info) Description 08/14/2023 6:10 PM EDT [facility] [address] [place] [id number] [facility] [place] [address] [place] [address] 12/10/2023 9:00 AM EDT Office Visit Psychiatry, [place] [address] [facility] [place] [address] HansenRadha CRNP [address] [facility] [place] [address] Scheduled Procedures Name Priority Associated Diagnoses Date/Ti [...] filedocumented as of this encounter Care Teams Business Operations Consultant Relationship Specialty Start Date End Date Loco Watson MD [address] [place] [address] PCP - General Family Medicine 08/18/19 documented as of this encounter
--- OUTSIDE RECORDS SUMMARY | 2023-08-22 23:35 | External Medical Summary | Summary of Care ---
Author Name Unknown Organization [facility] Address [address] [facility] [place] [address] Phone [phone] Care Team Providers Care Archivist Name Role Phone Cj Watson MD Primary Care Provider [phone] Reason for Visit * Reason Comments Appointment Encounter Details Date Type Department Care Team (Late st Contact Info) Description 08/14/2023 6:10 PM EDT Pharmacy Pharmacy, [facility] [address] [facility] [place] [address] Chronic thoracic back pain* Allergies Active Allergy Reactions Criticality Noted Date Comments Sulfa Antibiotics High 05/04/2021 Sulfa's- hives per pt report documented as of this encounter (statuses as of 08/14/2023) Medications Medication Sig Dispensed Refills Start Date [...] differently:25 mg Oral QHS PRN, Anxiety,Needs to spanish moss picker, Reported on 06/21/2023 buPROPion HCl ER (XL) 150 MG Oral Tablet Extended Release 24 Hour (Wellbutrin XL) TAKE 1 TABLET BY MOUTH EVERY MORNING 90 Tablet 3 08/09/2023 Active documented as of this encounter (statuses as of 08/14/2023) Active Problems Problem Noted Date Diagnosed Date Pancytopenia 06/05/2022 Alcohol dependence 07/04/2019 Chronic thoracic back pain 07/04/2019 Hypothyroidism 07/04/2019 GERD (gastroesophageal reflux disease) 0 Adjustment disorder with depressed mood 07/04/19 20 documented as of this encounter (statuses as of 08/14/2023) Immunizations Name Administration Dates Next Due COVID-19 mRNA, LNP-s, No Pre serve, 2-Dose Series ([employer]) 05/19/2020 Hepatitis B, 20+ yrs 06/20/2022,08/02/2007 Pneumococcal [...] Yes 01/02/2022 documented as of this encounter Progress Notes * Neyda White, parking attendant - 08/14/2023 9:35 AM EDT Patient Phone Numbers Ante Up [phone] Sent patient Chumby message to schedule [facility] appointment for pain management. [facility] sent --yes Clinic will follow up again in 4 week(s). [Attempt # 1] Thank you, Neyda White [employer] Set Up Worker [facility] 08/14/2023,9:35 AM documented in this encounter Plan of Treatment Upcoming Encounters Date Type Department Care Team (Late st Contact Info) Description 09/11/2023 6:10 PM EDT Pharmacy Pharmacy, [facility] [address] [facility] [place] [address] [facility] [address] [place] [address] 11/13/2023 3:15 PM EDT Imaging Radiology [facility] 1st Floor, [place] [address] [place] [address] 12/10/2023 9:00 AM EDT Office Visit Psychiatry, [address] [place] [address] Radha Hansen CRNP [address] [facility] [place] [address] Scheduled Procedures Name Priority Associated Diagnoses Date/Ti [...] of this encounter Visit Diagnoses Diagnosis Chronic thoracic back pain- Primary documented in this encounter Care Teams Archivist Relationship Specialty Start Date End Date Cj Watson MD [address] [place] [address] PCP - General Family Medicine 08/18/19 documented as of this encounter
--- OUTSIDE RECORDS SUMMARY | 2023-08-22 23:35 | External Medical Summary ---
Author Name Unknown Address Unknown Organization [id number]:[facility] [place] [facility] [address] [place] [address] Laboratory Report Ordering Provider Test Date Status KATIE NARVAEZ 08/13/2023 14:47:39 Final Observation Date Value Abnormality Reference (Units ) Status Albumin 08/13/2023 14:47:39 2.5 Below low normal 3.8-5.0 (g/dL) Final AST (Aspartate aminotransferase) 08/13/2023 14:47:39 93 Above high normal 10-35 (U/L) Final Alk Phos 08/13/2023 14:47:39 167 Above high normal 35-130 (U/L) Final ALT (Alanine aminotransferase) 08/13/2023 14:47:39 30 10-35 (U/L) Final Bilirubin, Total 08/13/2023 14:47:39 4.1 Above high normal <=1.2 (mg/dL) Final Bilirubin, Direct 08/13/2023 14:47:39 2.7 Above high normal 0.0-0.3 (mg/dL) Final Protein 08/13/2023 14:47:39 6.9 6.0-8.3 (g/dL) Final Performing Location [facility] [place] [address] [place] [address]
--- OUTSIDE RECORDS SUMMARY | 2023-08-22 23:36 | External Medical Summary | Summary of Care ---
Author Name Unknown Organization [facility] Address [address] [place] [address] Phone [phone] Care Team Providers Care Red Mud Thickener Operator Name Role Phone Cj Watson MD Primary Care Provider Reason for Visit * Auth/Cert Specialty Diagnoses / Procedures Referred By Minnie cam Referred To Contact Diagnoses Alcoholic cirrhosis of liver without ascites (HCC) Alcoholic cirrhosis of liver without ascites (HCC) [K70.30] Procedures EGD, FLEXIBLE, DIAGNOSTIC ESOPHAGOGASTRODUODENOSCOPY (EGD), FLEXIBLE, TRANSORAL, DIAGNOSTIC Santos Fierro MD [address] [place] [address] [facility] [address] [place] [address] Referral ID Status Reason Start Date Expiration Date Visits Re quested Visits Authorized [id number] Encounter Details Date Type Department Care Team (Latest Contact Info) Description 06/25/2023 9:48 AM EDT - 06/25/2023 12:51 PM EDT Hospital Encounter [facility], Endoscopy Room [facility] [address] [place] [address] Santos Fierro MD [address] [place] [address] Upper GI Endoscopy Discharge Disposition: Home - Self Care Allergies Active Allergy Reactions Criticality Noted Date Comments Sulfa Antibiotics High 05/04/2021 Sulfa's- hives per pt report documented as of this encounter (statuses as of 06/26/2023) Medications Medication Sig Dispensed Refills Start Date [...] Oral QHS PRN, Anxiety,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 up operator, Reported on 06/21/2023 documented as of this encounter (statuses as of 06/26/2023) Active Problems Problem Noted Date Diagnosed Date Pancytopenia 06/05/2022 Alcohol dependence 07/04/2019 Chronic thoracic back pain 07/04/2019 Hypothyroidism 07/04/2019 GERD (gastroesophageal reflux disease) 0 Adjustment disorder with depressed mood 05/01/20 20 documented as of this encounter (statuses as of 06/26/2023) Immunizations Name Administration Dates Next Due COVID-19 [...] on file documented as of this encounter Last Filed Vital Signs Vital Sign Reading Time Taken Comments Blood Pressure 106/71 06/25/2023 12:08 PM EDT Pulse 86 06/25/2023 12:08 PM EDT Temperature 36.2 C (97.1 F) 06/25/2023 11:54 AM E DT Respiratory Rate 18 06/25/2023 12:08 PM EDT Oxygen Saturation 98% 06/25/2023 12:08 PM EDT Inhaled Oxygen Concentration - - Weight 67.1 kg (148 lb) 06/25/2023 10:45 AM EDT Height 162.6 cm (5' 4") 06/25/2023 10:45 AM EDT Body Mass Index 25.4 06/25/2023 10:45 AM EDT documented in this encounter Functional Status Functional Status Response Date of Assess ment Does this person have seriou s difficulty walking or climbing stairs? Yes 01/02/2022 documented as of this encounter H&P Notes * Santos Fierro MD - 06/25/2023 11:30 AM EDT Endoscopy Pre-Procedure Assessment Name: Anh Toribio Date: 06/25/2023 Time: 11:30 AM Procedure(s): Upper GI Endoscopy; with Indication(s) of varices surveillance Endoscopy Pre-Procedure Assessment: Prior to the procedure, the patient is identified. The patient's history, medications and allergieshave been reviewed. The patient is competent. The risks and benefits of the proposed procedure and the planned sedation have been discussed with the patient. All questions have been answered and informed consent for the procedure has been obtained. Prior to Admission medications Medication Sig Last Dose Discont. Spironolactone 25 MG Oral Tablet (Aldactone) TAKE 2 TABLETS BY MOUTH EVERY MORNING 06/24/2023 Levothyroxine Sodium 150 MCG Oral Tablet (Levoxyl) TAKE 1 TABLET BY MOUTH EVERY MORNING. AT LEAST 30 MINUTES PRIOR TO BREAKFAST OR OTHER MEDICATIONS 06/24/2023 Furosemide 40 MG Oral Tablet (Lasix) TAKE 1 TABLET BY MOUTH EVERY MORNING 06/24/2023 Gabapentin 400 MG Oral Capsule (Neurontin) TAKE 1 CAPSULE BY MOUTH THREE TIMES DAILY every morning,at noon, and before bedtime 06/25/2023 Folic Acid 1 MG Oral Tablet TAKE 1 TABLET BY MOUTH ONCE DAILY 06/24/2023 Lactulose 10 GM/15ML Oral Solution (Constulose) TAKE 15ML BY MOUTH THREE A DAY NEEDED to have 2-3 bowel movements per day Past Week Thiamine HCl 100 MG Oral Tablet (vitamin B-1) Take 1 Tablet by mouth in the morning. 06/24/2023 Omeprazole 40 MG Oral Capsule Delayed Release (PriLOSEC) TAKE 1 CAPSULE BY MOUTH TWICE DAILY 06/24/2023 Gabapentin 800 MG Oral Tablet (Neurontin) TAKE ONE TABLET BY MOUTH IN THE MORNING, ONE TABLET AT NOON AND ONE TABLET BEFORE BEDTIME 06/25/2023 NIFEdipine 10 MG Oral Capsule (Procardia) TAKE ONE CAPSULE BY MOUTH EVERY DAY IN THE MORNING. Patient taking differently: "As needed" Past Month buPROPion HCl ER (XL) 150 MG Oral Tablet Extended Release 24 Hour (Wellbutrin XL) TAKE ONE TABLET BY MOUTH IN THE MORNING 06/24/2023 Ferrous Sulfate 325 (65 Fe) MG Oral Tablet (Feosol) Take 1 Tablet by mouth in the morning and 1 Tablet before bedtime. 06/24/2023 Sucralfate 1 GM Oral Tablet (Carafate) Past Week Magnesium Oxide 400 MG Oral Capsule Take 1 Capsule by mouth in the morning and 1 Capsule before bedtime. Take by mouth 400 mg in the morning AND 400 mg before bedtime.. 06/24/2023 B-12 1000 MCG Oral Capsule Take 1 Capsule by mouth in the morning. Past Month D3-1000 25 MCG (1000 UT) Oral Capsule (Cholecalciferol) Take 1 Capsule by mouth once a week. Wednesdays Past Week hydrOXYzine HCl 25 MG Oral Tablet Take 1 Tablet by mouth at bedtime as needed for Anxiety. Patient taking differently: Take 1 Tablet by mouth at bedtime as needed for Anxiety. 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 up operator busPIRone HCl 5 MG Oral Tablet (Buspar) Take 1 Tablet by mouth in the morning and 1 Tablet at noon and 1 Tablet before bedtime. Take 7.5 mg every 8 hours as needed for anxiety. Patient not taking: Reported on 06/21/2023 Not Taking Lidocaine 5 % External Patch (Lidoderm) daily. Patient not taking: Reported on 01/30/2023 Not Taking Naltrexone HCl 50 MG Oral Tablet (Revia) 1 Tablet in the morning. Patient not taking: Reported on 06/21/2023 Not Taking traMADol HCl 50 MG Oral Tablet (Ultram) 1 Tablet. Patient not taking: Reported on 06/21/2023 Not Taking Albumin Human 25 % Intravenous Solution 25G IV pre-paracentesis followed by 25 G IV post paracentesis. May run at 100mL/hr. Patient not taking: Reported on 11/01/2022 Not Taking Review of patient's allergies indicates: Allergen Reactions Sulfa Antibiotics Sulfa's- hives per pt report BP 124/80 | Pulse 93 | Temp 36.4 C (97.5 F) (Tympanic) | Resp 16 | Ht 1.626 m (5' 4") | Wt 67.1kg (148 lb) | SpO2 98% | BMI 25.40 kg/m | BSA 1.74 m Physical Exam: Mental Status Examination: alert and oriented. Airway Examination: normal oropharyngeal airway and neck mobility. Respiratory Examination: clear to auscultation. CV Examination: normal. ASA Grade: III - A patient with severe systemic disease. Abdomen: negative This patient has undergone a preprocedural evaluation. A determination has been made to proceed with the planned procedure under [facility] procedural guidelines and the [facility] Non-Emergent, Elective Medical Services and Treatment Recommendations (published on 06-10-19). The community and hospital prevalence of COVID-19 has been discussed as well as this patient's specific risks associated with SARS-CoV-19 infection. Based upon the clinical acuity and patient-specific care considerations, this procedure is deemed a Tier II - Intermediate acuity treatment or service with either progression or the threat of progressive disease related to the delay in treatment. Not providing the service has the potential for increasing morbidity or mortality. After reviewing the risks and benefits, the patient is deemed in satisfactory condition to undergo the procedure. The anesthesia plan is to use general anesthesia. Santos Fierro MD 06/25/2023 documented in this encounter Procedure Notes * Flores Montalvo DO - 06/25/2023 11:46 AM EDTAssociated Order(s): UPPER GI ENDOSCOPY [facility] Patient Name: Anh Toribio Procedure Date: 06/25/2023 11:46 AM Date of : 1965 Admit Type: Outpatient Note Status: Finalized Date of : 1965 Admit Type: Outpatient Age: 58 Room: Endo 2 Gender: Female Note Status: Finalized Procedure: Upper GI endoscopy Indications: Follow-up of esophageal varices Providers: Santos Fierro MD (Doctor) Referring MD: Flores Montalvo DO (Referring MD), Cj Watson MD (Referring MD) Medicines: See the Anesthesia note for documentation of the administered medications Complications: No immediate complications. Procedure: Pre-Anesthesia Assessment: - ASA Grade Assessment: III - A patient with severe systemic disease. After obtaining informed consent, the endoscope was passed under direct vision. All instruments were visually inspected immediately before and after removal from the patient to ensure they are fully intact. Throughout the procedure, the patient's blood pressure, pulse, and oxygen saturations were monitored continuously. The colonoscopy was performed without difficulty. The patient tolerated the procedure well. The [id number] Endoscope ([id number]) was introduced through the mouth, and advanced to the third part of duodenum. Findings & Specimens: There was an inlet patch in the proximal esophagus. Three columns of grade I, very small (< 5 mm) varices with no stigmata of recent bleeding were found in the lower third of the esophagus. No red federico signs were present. Scarring from prior treatment was visible. The GEJ was at 40 cm. There was severe portal gastropathy, characterized by snakeskin appearance of the stomach and friability, in the fundus and body. No gastric varices. The antrum was normal. The duodneum was normal. Recommendation: Discharge pt home. Consider repeat exam, intiiation of NSBB or Coreg. Santos Fierro MD 06/25/2023 12:09:38 PM This report has been signed electronically. documented in this encounter Nursing Notes * Susy Barros RN - 06/25/2023 12:40 PM EDT Patient is alert, pain free and tolerating po fluids prior to discharge. Patient has been visited by Dr. Fierro. Patient has received and demonstrates understanding of discharge instructions. Patient ambulated to private auto accompanied by endo staff. * Raya Varela RN - 06/25/2023 12:17 PM EDT D/c instructions given to pt, verbalized understanding. * Raya Varela RN - 06/25/2023 12:00 PM EDT Pt sitting up tolerating PO fluids, no c/o. * Raya Varela RN - 06/25/2023 11:54 AM EDT Received pt, awake, VSS, CM shows NSR. Report given by Rinku JASSO. * Jad Doe RN - 06/25/2023 11:53 AM EDT Pt bing EGD. Abd soft post proc. To recovery lying on L side w/ HOB elevated. Pre cleaning of scope at the bedside started by cytogenetic technician. See anesthesia record for medication administered during procedure. Jad Doe RN * Meche Cortes RN - 06/25/2023 10:47 AM EDT The following pt discharge instructions reviewed with pt prior to prodedure: No driving today. No alcohol today. No signing of legal documents. Rest as much as possible today and can return to normal activities tomorrow. No operating any heavy equipment today. Diet as tolerated. Pt verbalized understanding. documented in this encounter Plan of Treatment Upcoming Encounters Date Type Department Care Team (Late st Contact Info) Description 06/26/2023 12:30 PM EDT Imaging Radiology [facility] [address] [place] [address] 07/05/2023 6:10 PM EDT Pharmacy Pharmacy, [address] [place] [address] [place] [address] 12/10/2023 9:00 AM EDT Office Visit Psychiatry, [place] [address] [facility] [place], [place] [address] Radha Hansen CRNP [address] [facility] [place] [address] Scheduled Procedures Name Priority Associated Diagnoses Date/Ti me COLONOSCOPY FLEXIBLE PROXIMAL DIAGNOSTIC Recall Screen for colon cancer ESOPHAGOGASTRODUODENOSCOPY ( EGD), FLEXIBLE, TRANSORAL, DIAGNOSTIC Recall Esophageal varices (HCC) Portal hypertensive gastropathy (HCC) Health Maintenance Due Date Last Done Comments HPV/Co-Test 06/24/1995 Pneumococcal Vaccine: Pediatrics (0 to 5 Years) [...] Cancer Screening 01/01/2024 Pap Smear 01/01/2024 12/31/2020 COLONOSCOPY-EVERY 3 YRS AGES 18-100 10/04/2025 10/04/2022, 10/04/2022, 04/17/2017 Diabetes Screening 06/20/2026 06/21/2023, 0 04/03/2023, 10/25/2022, Additional history exists Lipid Panel 01/02/2027 01/02/2022 DTaP,Tdap,and Td Vaccines (3 - Td or Tdap) 08/31/2030 08/31/2020, 07/24/2007 Colonoscopy Discontinued 10/04/2022, 0804/2022, 04/17/2017 Colorectal Cancer Screening Discontinued Cologuard Discontinued Fecal Occult Blood Test Discontinued GARDASIL-HPV IMMUNIZATION SERIES Aged Out No longer eligible based on patient's age to complete this topic MENINGOCOCCAL (MENACTRA/MENVEO) Aged Out No longer eligible based on patient's age to complete this topic Sigmoidoscopy Discontinued documented as of this encounter Medical Devices Not on filedocumented as of this encounter Procedures Procedure Name Priority Date/Time Associated Diagnosis Comments UPPER GI ENDOSCOPY 06/25/2023 11 :46 AM EDT documented in this encounter Results * UPPER GI ENDOSCOPY (06/25/2023 11:46 AM EDT) 06/25/2023 11:4 6 AM EDT Narrative Procedure Note Florse Montalvo DO - 06/25/2023 11:46 AM EDT [facility] Patient Name: Anh Toribio Procedure Date: 06/25/2023 11:46 AM Date of : 1965 Admit Type: Outpatient Note Status:Finalized Date of : 1965 Admit Type: Outpatient Age: 58 Room: [facility] 2 Gender: Female Note Status: Finalized Procedure: Upper GI endoscopy Indications: Follow-up of esophageal varices Providers: Santos Fierro MD (Doctor) Referring MD: Flores Montalvo DO (Referring MD), Cj Dias MD (Referring MD) Medicines: See the Anesthesia note for documentation of theadministered medications Complications: No immediate complications. Procedure: Pre-Anesthesia Assessment: - ASA Grade Assessment: III - A patient with severesystemic disease. After obtaining informed consent, the endoscope waspassed under direct vision. All instruments were visually inspected immediatelybefore and after removal from the patient to ensure they are fully intact. Throughout the procedure, the patient's bloodpressure, pulse, and oxygen saturations were monitored continuously. The colonoscopy wasperformed without difficulty. The patient tolerated the procedure well. The [id number] ([id number]) was introduced through the mouth, and advanced to thethird part of duodenum. Findings & Specimens: There was an inlet patch in the proximal esophagus. Three columns of grade I, very small (< 5 mm) varices with nostigmata of recent bleeding were found in the lower third of the esophagus. No red federico signs were present.Scarring from prior treatment was visible. The GEJ was at 40 cm. There was severe portal gastropathy, characterized by snakeskinappearance of the stomach and friability, in the fundus and body. No gastric varices. The antrumwas normal. The duodneum was normal. Recommendation: Discharge pt home. Consider repeat exam, intiiationof NSBB or Coreg. Santos Fierro MD 06/25/2023 12:09:38 PM This report has been signed electronically. Flores Montalvo DO GASTRO UPPER documented in this encounter Administered Medications Inactive Administered Medications - up to 3 most recent administrations Medication Order MAR Action Action Date Dose Rate Site Acetaminophen (Tylenol) tab 650 mg 650 mg, Oral, PRN Pain, Mild, Starting on Sun06/25/23 at 1202, Until Sun06/25/23 at 1651, For 1 dose, Maximum of 4 grams (4000 mg) per day., Post-op isolyte-S pH 7.4 infusion Intravenous, at 100 mL/hr, Plasma-LYTE 148, isolyte-S, and isolyte-S pH 7.4 are considered equivalent - including for MAR barcode scanning., CONTINUOUS, Starting on Sun06/25/23 at 1100, Until Sun06/25/23 at 1651, Pre-Op Restarted 06/25/2023 11:52 AM EDT Continue from Pre-Op 06/25/2023 11:38 AM EDT 10 0 mL/hr New Bag 06/25/2023 10:52 AM EDT 100 mL/hr documented in this encounter Active and Recently Administered Medications Times are shown in EDT. Continuous Medication Order 2023 06/24/2023 06/25/2023 isolyte-S pH 7.4 infusion Intravenous, at 100 mL/hr, Plasma-LYTE 148, isolyte-S, and isolyte-S pH 7.4 are considered equivalent - including for MAR barcode scanning., CONTINUOUS, Starting on Sun06/25/23 at 1100, Until Sun06/25/23 at 1651, Pre-Op 1052 (New Bag - Prov ider: Meche Cortes RN)1138 (Continue from Pre-Op - Provider: Chelle Carrion CRNA)1151 (Paused - Provider: Chelle Carrion CRNA - Comment: Switch to gravity)1152 (Restarted - Provider: Chelle Carrion CRNA) PRN Medication Order 2023 06/24/2023 06/25/2023 Acetaminophen (Tylenol) tab 650 mg 650 mg, Oral, PRN Pain, Mild, Starting on Sun06/25/23 at 1202, Until Sun06/25/23 at 1651, For 1 dose, Maximum of 4 grams (4000 mg) per day., Post-op documented in this encounter Care Teams Red Mud Thickener Operator Relationship Specialty Start Date End Date Cj Watson MD [address] [place] [address] PCP - General Family Medicine 08/18/19 documented as of this encounter
--- OUTSIDE RECORDS SUMMARY | 2023-08-22 23:36 | External Medical Summary | Summary of Care ---
Author Name Unknown Organization [facility] Address [address] [facility] [place] [address] Phone [phone] Care Team Providers Care Supervisor Travel Information Center Name Role Phone Cj Watson MD Primary Care Provider [phone] Reason for Visit * Reason Comments Appointment Encounter Details Date Type Department Care Team (Late st Contact Info) Description 07/05/2023 6:10 PM EDT [facility] [address] [facility] [address] Chronic thoracic back pain* Allergies Active Allergy Reactions Criticality Noted Date Comments Sulfa Antibiotics High 05/04/2021 Sulfa's- hives per pt report documented as of this encounter (statuses as of 07/05/2023) Medications Medication Sig Dispensed Refills Start Date [...] differently:25 mg Oral QHS PRN, Anxiety,Needs to chart picker, Reported on 06/21/2023 documented as of this encounter (statuses as of 07/05/2023) Active Problems Problem Noted Date Diagnosed Date Pancytopenia 06/05/2022 Alcohol dependence 07/04/2019 Chronic thoracic back pain 07/04/2019 Hypothyroidism 07/04/2019 GERD (gastroesophageal reflux disease) 0 Adjustment disorder with depressed mood 07/04/19 20 documented as of this encounter (statuses as of 07/05/2023) Immunizations Name Administration Dates Next Due COVID-19 mRNA, LNP-s, No Pre serve, 2-Dose Series ([employer]) 05/19/2020 Hepatitis B, 20+ yrs 06/20/2022,08/02/2007 Pneumococcal [...] of this encounter Progress Notes * Neyda White PHARM Tech - 07/05/2023 10:57 AM EDT Patient Phone Numbers Spoke with patient to schedule [facility] appointment for pain management. Appointment scheduled as notedbelow. 07/17/2023 Thank you, Neyda White Advertising Inserter [facility] 07/05/2023,10:57 AM documented in this encounter Plan of Treatment Upcoming Encounters Date Type Department Care Team (Late st Contact Info) Description 07/17/2023 9:00 AM EDT Office Visit Pharmacy, [facility] [address] [place] [address] [facility] [place] [address] [place] [address] 07/31/2023 8:00 AM EDT Imaging Radiology [facility] 1st Floor, [place] [address] [place] [address] 12/10/2023 9:00 AM EDT Office Visit Psychiatry, [place] [facility] [address] [place] [address] Radha Hansen CRNP [address] [facility] [place] [address] Scheduled Procedures Name Priority Associated Diagnoses Date/Ti [...] Primary documented in this encounter Care Teams Supervisor Travel Information Center Relationship Specialty Start Date End Date Cj Watson MD [address] [place] [address] PCP - General Family Medicine 08/18/19 documented as of this encounter
--- OUTSIDE RECORDS SUMMARY | 2023-08-22 23:36 | External Medical Summary | Summary of Care ---
Author Name Unknown Organization [facility] Address [address] [place] [place] [address] Phone [phone] Care Team Providers Care Gas Welder Name Role Phone Cj Watson MD Primary Care Provider [phone] Reason for Visit * Reason Onset Date Comments Test Results 06/27/2023 Encounter Details Date Type Department Care Team (Late st Contact Info) Description 06/27/2023 Telephone [facility] [address] [place] [address] Cj Watson MD [address] [place] [address] Test Results Allergies Active Allergy Reactions Criticality Noted Date Comments Sulfa Antibiotics High 05/04/2021 Sulfa's- hives per pt report documented as of this encounter (statuses as of 06/27/2023) Medications Medication Sig Dispensed Refills Start Date [...] differently:25 mg Oral QHS PRN, Anxiety,Needs to fruit picker machine operator, Reported on 06/21/2023 documented as of this encounter (statuses as of 06/27/2023) Active Problems Problem Noted Date Diagnosed Date Pancytopenia 06/05/2022 Alcohol dependence 07/04/2019 Chronic thoracic back pain 07/04/2019 Hypothyroidism 07/04/2019 GERD (gastroesophageal reflux disease) 0 Adjustment disorder with depressed mood 07/04/19 20 documented as of this encounter (statuses as of 06/27/2023) Immunizations Name Administration Dates Next Due COVID-19 mRNA, LNP-s, No Pre serve, 2-Dose Series ([employer]) 05/19/2020 Hepatitis B, 20+ yrs 06/20/2022,08/02/2007 Pneumococcal [...] Telephone Encounter - May Villalta CRNP - 06/27/2023 2:30 PM EDT Images from the original note were not included. No, I don't need to speak w her. Just want her to get MRI scheduled. This was the note I placed in her chart under Results Notes earlier today: Left message on patient's phone to call us back. Nurses, when patient calls back please inform her that abdominal ultrasound suboptimal to evaluate her liver for masses. I would recommend a follow-upMRI liver. Please transfer to scheduling if she is agreeable to schedule. May S GRACE Villalta * Telephone Encounter - Lorri Maki RN - 06/27/2023 2:25 PM EDT Called pt back, She stated someone called her earlier, no TE. Pt states she saw she needs an MRI, saw May ordered today. Unable to transfer to schedulers, not available. Pt given number to call and schedule MRI. May, did you need to talk to pt? * Telephone Encounter - Iraida Grey OSA - 06/27/2023 9:39 AM EDT Patient returning call to review test results. Please call back documented in this encounter Plan of Treatment Upcoming Encounters Date Type Department Care Team (Late st Contact Info) Description 07/05/2023 6:10 PM EDT Pharmacy Pharmacy, [facility] [address] [facility] [place] [address] [facility] [address] [facility] [place] [address] 12/10/2023 9:00 AM EDT Office Visit Psychiatry, [place] [facility] [address] Radha Hansen CRNP [facility] [place] [address] Scheduled Procedures Name Priority Associated Diagnoses Date/Ti [...] Tdap) 08/31/2030 08/31/2020, 07/24/2007 Colonoscopy Discontinued 10/04/2022, 08/0 04/2022, 04/17/2017 Colorectal Cancer Screening Discontinued Cologuard Discontinued Fecal Occult Blood Test Discontinued GARDASIL-HPV IMMUNIZATION SERIES Aged Out No longer eligible based on patient's age to complete this topic MENINGOCOCCAL (MENACTRA/MENVEO) Aged Out No longer eligible based on patient's age to complete this topic Sigmoidoscopy Discontinued documented as of this encounter Medical Devices Not on filedocumented as of this encounter Care Teams Gas Welder Relationship Specialty Start Date End Date Cj Watson MD [address] [place] [address] PCP - General Family Medicine 08/18/19 documented as of this encounter
--- OUTSIDE RECORDS SUMMARY | 2023-08-22 23:36 | External Medical Summary | Summary of Care ---
Author Name Unknown Organization [facility] Address [address] [facility] [place] [address] Phone [phone] Care Team Providers Care Extermination Supervisor Name Role Phone Cj Watson MD Primary Care Provider [phone] Encounter Details Date Type Department Care Team (Late st Contact Info) Description 07/02/2023 Orders Only Gastroenterology, [facility] [address] [place] [address] May Villalta CRNP [address] [place] [address] Other cirrhosis of liver (HCC)* Allergies Active Allergy Reactions Criticality Noted Date Comments Sulfa Antibiotics High 05/04/2021 Sulfa's- hives per pt report documented as of this encounter (statuses as of 07/02/2023) Medications Medication Sig Dispensed Refills Start Date [...] differently:25 mg Oral QHS PRN, Anxiety,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 labor union, Reported on 06/21/2023 documented as of this encounter (statuses as of 07/02/2023) Active Problems Problem Noted Date Diagnosed Date Pancytopenia 06/05/2022 Alcohol dependence 07/04/2019 Chronic thoracic back pain 07/04/2019 Hypothyroidism 07/04/2019 GERD (gastroesophageal reflux disease) 0 Adjustment disorder with depressed mood 07/04/19 20 documented as of this encounter (statuses as of 07/02/2023) Immunizations Name Administration Dates Next Due COVID-19 mRNA, LNP-s, No Pre serve, 2-Dose Series ([employer]) 05/19/2020 Hepatitis B, 20+ yrs 06/20/2022,08/02/2007 Pneumococcal [...] Description 07/05/2023 6:10 PM EDT Pharmacy Pharmacy, [address] [place] [address] [facility] [address] [place] [address] 07/31/2023 8:00 AM EDT Imaging Radiology [facility] 132 [facility] [place] [address] 12/10/2023 9:00 AM EDT Office Visit Psychiatry, [place] [address] [place] [address] Radha Hansen CRNP [address] [place] [address] Scheduled Orders Name Type Priority Associated Diagnoses Orde r Schedule HEPATIC FUNCTION PANEL Lab Routine Other cirrhosis of liver (HCC) Expected: 08/01/2023, Expires: 07/01/2024 Scheduled Procedures Name Priority Associated Diagnoses Date/Ti [...] Visit Diagnoses Diagnosis Other cirrhosis of liver (HCC)- Primary documented in this encounter Care Teams Extermination Supervisor Relationship Specialty Start Date End Date Cj Watson MD [address] [place] [address] PCP - General Family Medicine 08/18/19 documented as of this encounter
--- OUTSIDE RECORDS SUMMARY | 2023-08-22 23:36 | External Medical Summary | Summary of Care ---
Author Name Unknown Organization [facility] Address [address] [facility] [place] [address] Phone [phone] Care Team Providers Care Financial Aid Counselor Name Role Phone Cj Watson MD Primary Care Provider [phone] Reason for Visit * Reason Comments Outpatient Testing Encounter Details Date Type Department Care Team (Late st Contact Info) Description 06/29/2023 9:50 AM EDT Laboratory Laboratory [address] [place] [phone] [place] [address] Elevated LFTs Allergies Active Allergy Reactions Criticality Noted Date Comments Sulfa Antibiotics High 05/04/2021 Sulfa's- hives per pt report documented as of this encounter (statuses as of 06/29/2023) Medications Medication Sig Dispensed Refills Start Date [...] differently:25 mg Oral QHS PRN, Anxiety,Needs to lemon picker, Reported on 06/21/2023 documented as of this encounter (statuses as of 06/29/2023) Active Problems Problem Noted Date Diagnosed Date Pancytopenia 06/05/2022 Alcohol dependence 07/04/2019 Chronic thoracic back pain 07/04/2019 Hypothyroidism 07/04/2019 GERD (gastroesophageal reflux disease) 0 Adjustment disorder with depressed mood 07/04/19 20 documented as of this encounter (statuses as of 06/29/2023) Immunizations Name Administration Dates Next Due COVID-19 mRNA, LNP-s, No Pre serve, 2-Dose Series ([employer]) 05/19/2020 Hepatitis B, 20+ yrs 06/20/2022,08/02/2007 Pneumococcal [...] Description 07/05/2023 6:10 PM EDT Pharmacy Pharmacy, [facility] [address] [facility] [address] [place] [address] 07/31/2023 8:00 AM EDT Imaging Radiology [address] 132 [facility] [place] [address] 12/10/2023 9:00 AM EDT Office Visit Psychiatry, [place] [address] [place] [address] Radha Hansen CRNP [address] [place] [address] Pending Results Name Type Priority Associated Diagnoses Date /Time HEPATIC FUNCTION PANEL Lab Routine Elevated LFTs 06/29/2023 9:50 AM EDT Scheduled Procedures Name Priority Associated [...] as of this encounter Visit Diagnoses Diagnosis Elevated LFTs Other abnormal blood chemistry documented in this encounter Care Teams Financial Aid Counselor Relationship Specialty Start Date End Date Cj Watson MD [address] [place] [place] [address] PCP - General Family Medicine 08/18/19 documented as of this encounter
--- OUTSIDE RECORDS SUMMARY | 2023-08-22 23:36 | External Medical Summary | Summary of Care ---
Author Name Unknown Organization [facility] Address [address] [facility] [address] Phone [phone] Care Team Providers Care Pretzel Cooker Name Role Phone Cj Watson MD Primary Care Provider Reason for Visit * Reason Comments Outpatient Testing Encounter Details Date Type Department Care Team (Late st Contact Info) Description 06/21/2023 11:40 AM EDT Laboratory Laboratory, [facility] [phone] [facility] 132 [place] [address] Alcoholic cirrhosis of liver without ascites (HCC) Allergies Active Allergy Reactions Criticality Noted Date Comments Sulfa Antibiotics High 05/04/2021 Sulfa's- hives per pt report documented as of this encounter (statuses as of 06/21/2023) Medications Medication Sig Dispensed Refills Start Date End Date Status B-12 1000 MCG Oral Capsule Take 1 Capsule by mouth in the morning. 0 Active D3-1000 25 MCG (1000 UT) Oral Capsule (Cholecalciferol) Take 1 Capsule by mouth in the morning. 0 Active Magnesium Oxide 400 MG Oral [...] for Anxiety. 30 Tablet 2 06/21/2023 Active documented as of this encounter (statuses as of 06/21/2023) Active Problems Problem Noted Date Diagnosed Date Pancytopenia 06/05/2022 Alcohol dependence 07/04/2019 Chronic thoracic back pain 07/04/2019 Hypothyroidism 07/04/2019 GERD (gastroesophageal reflux disease) 0 Adjustment disorder with depressed mood 07/04/19 20 documented as of this encounter (statuses as of 06/21/2023) Immunizations Name Administration Dates Next Due COVID-19 mRNA, LNP-s, No Pre serve, 2-Dose Series ([employer]) 05/19/2020 Hepatitis B, 20+ yrs 06/20/2022,08/02/2007 Pneumococcal [...] Upcoming Encounters Date Type Department Care Team (Latest Contact Info) Description 06/25/2023 11:15 AM EDT Hospital Encounter ENDO [facility], Endoscopy Room [facility] 132 [place] [address] Santos Fierro MD [address] [place] [address] 06/25/2023 11:15 AM EDT - 06/25/2023 11:45 AM EDT Surgery ENDO [facility], Endoscopy Room [facility] [address] [place] [address] Santos Fierro MD [address] [place] [address] ESOPHAGOGASTRODUODENOSCOPY (EGD), FLEXIBLE, TRANSORAL, DIAGNOSTIC 06/26/2023 12:30 PM EDT Imaging Radiology [facility] 2nd [facility] 132 [place] [address] 07/05/2023 6:10 PM EDT Pharmacy Pharmacy, [facility] 132 [place] [address] [facility] [address] [facility] [place] [address] 12/10/2023 9:00 AM EDT Office Visit Psychiatry, [place] [address] [facility] [place] [address] Radha Hansen CRNP [address] [place] [address] Pending Results Name Type Priority Associated Diagnoses Date /Time CBC WITH WBC DIFFERENTIAL Lab Routine Alcoholic cirrhosis of liver without ascites (HCC) 06/21/2023 11:29 AM EDT COMPREHENSIVE METABOLIC PANEL Lab Routine Alcoholic cirrhosis of liver without ascites (HCC) 06/21/2023 11:29 AM EDT PT INR Lab Routine Alcoholic cirrhosis of liver without ascites (HCC) 06/21/2023 11:29 AM EDT ALPHA-FETOPROTEIN TUMOR MARKER Lab Routine Alcoholic cirrhosis of liver without ascites (HCC) 06/21/2023 11:29 AM EDT VITAMIN B12 Lab Routine Alcoholic cirrhosis of liver without ascites (HCC) 06/21/2023 11:29 AM EDT MAGNESIUM Lab Routine Alcoholic cirrhosis of liver without ascites (HCC) 06/21/2023 11:29 AM EDT IRON SCREEN, INCLUDING TIBC Lab Routine Alcoholic cirrhosis of liver without ascites (HCC) 06/21/2023 11:29 AM EDT FOLIC ACID Lab Routine Alcoholic cirrhosis of liver without ascites (HCC) 06/21/2023 11:29 AM EDT CBC Lab Routine Alcoholic cirrhosis of liver without ascites (HCC) 06/21/2023 11:29 AM EDT DIFFERENTIAL, AUTOMATED Lab Routine Alcoholic cirrhosis of liver without ascites (HCC) 06/21/2023 11:29 AM EDT Scheduled Procedures Name Priority Associated Diagnoses Date/Ti me ESOPHAGOGASTRODUODENOSCOPY ( EGD), FLEXIBLE, TRANSORAL, DIAGNOSTIC Alcoholic cirrhosis of liver without ascites (HCC) 06/25/2023 11:15 AM EDT COLONOSCOPY FLEXIBLE PROXIMA L DIAGNOSTIC Recall Screen for colon cancer ESOPHAGOGASTRODUODENOSCOPY [...] 18-100 10/04/2025 10/04/2022, 10/04/2022, 04/17/2017 Diabetes Screening 04/03/2026 04/03/2023, 0 10/25/2022, 05/29/2022, Additional history exists Lipid Panel 01/02/2027 01/02/2022 [...] Visit Diagnoses Diagnosis Alcoholic cirrhosis of liver without ascites (HCC) Alcoholic cirrhosis of liver Alcoholic cirrhosis of liver without ascites (HCC) Alcoholic cirrhosis of liver documented in this encounter Care Teams Pretzel Cooker Relationship Specialty Start Date End Date Cj Watson MD [address] [facility] [place] [address] PCP - General Family Medicine 08/18/19 documented as of this encounter
--- OUTSIDE RECORDS SUMMARY | 2023-08-22 23:36 | External Medical Summary | Summary of Care ---
Author Name Unknown Organization [facility] Address [address] [facility] [place] [address] Phone [phone] Care Team Providers Care Merchandising Execution Manager Name Role Phone Cj Watson MD Primary Care Provider [phone] Reason for Visit * Reason Onset Date Comments Test Results 06/27/2023 Other 06/27/2023 Encounter Details Date Type Department Care Team (Late st Contact Info) Description 06/27/2023 Telephone Gastroenterology, [facility] [address] [place] [address] May Villalta CRNP [address] [place] [address] Test Results; Other Allergies Active Allergy Reactions [...] mRNA, LNP-s, No Pre serve, 2-Dose Series ([employer]) 05/19/2020 Hepatitis B, 20+ yrs 06/20/2022,08/02/2007 Pneumococcal [...] encounter Miscellaneous Notes * Telephone Encounter - Buffy Cárdenas OSA [...] 07/17/2023 9:00 AM EDT Office [address], [address] [address] [facility] [address] [place] [address] 07/31/2023 8:00 AM EDT Imaging Radiology [facility] 1st Floor, [place] 132 [facility] [place] [address] 12/10/2023 9:00 AM EDT Office Visit Psychiatry, [address] 200 [facility] [place] [address] Radha Hansen CRNP 200 [facility] [place] [address] Scheduled Procedures Name Priority Associated Diagnoses Date/Ti [...] filedocumented as of this encounter Care Teams Merchandising Execution Manager Relationship Specialty Start Date End Date Cj Watson MD [address] [place] [address] PCP - General Family Medicine 08/18/19 documented as of this encounter
--- OUTSIDE RECORDS SUMMARY | 2023-08-22 23:36 | External Medical Summary | Summary of Care ---
Author Name Unknown Organization [facility] Address [address] [place] [address] Phone [phone] Care Team Providers Care Senior Systems Engineer Name Role Phone Cj Watson MD Primary Care Provider [phone] Reason for Referral * Precert (Within 10 days (routine)) - Pending Review Specialty Diagnoses / Procedures Referred By Minnie cam Referred To Contact Radiology Diagnoses Other cirrhosis of liver (HCC) Procedures MRI LIVER W WO CONTRAST May Villalta CRNP [address] [place] [address] Referral ID Status Reason Start Date Expiration Date V isits Requested Visits Authorized [id number] Pending Review 06/27/[phone] Encounter Details Date Type Department Care Team (Late st Contact Info) Description 06/27/2023 Orders Only Gastroenterology, [facility] [address] [place] [address] May Villalta CRNP [address] [place] [address] Other cirrhosis of liver (HCC)* Allergies Active [...] differently:25 mg Oral QHS PRN, Anxiety,Needs to garbage pick up worker, Reported on 06/21/2023 documented as of this [...] Description 07/05/2023 6:10 PM EDT [facility]acy [facility], [facility] [address] [place] [address] [facility] [place] 132 [place] [address] 12/10/2023 9:00 AM EDT Office Visit Psychiatry, [place] [address] [place] [address] Radha Hansen CRNP [address] [place] [address] Scheduled Orders Name Type Priority Associated Diagnoses Orde r Schedule MRI LIVER W WO CONTRAST Medical Imaging Routine Other cirrhosis of liver (HCC) Ordered: 06/27/2023 Scheduled Procedures Name Priority Associated Diagnoses Date/Ti [...] 08/15/2022 06/20/2022, 08/02/2007 COVID-19 Vaccine (3 - season) 2022 06/09/2020, 05/19/2020 TSH 01/02/2023 01/02/2022, [...] Primary documented in this encounter Care Teams Senior Systems Engineer Relationship Specialty Start Date End Date Cj Watson MD [address] [place] [address] PCP - General Family Medicine 08/18/19 documented as of this encounter
--- OUTSIDE RECORDS SUMMARY | 2023-08-22 23:36 | External Medical Summary | Summary of Care ---
Author Name Unknown Organization [facility] Address [address] [place] [place] [address] Phone [phone] Care Team Providers Care Traffic Analyst Name Role Phone Cj Watson MD Primary Care Provider Reason for Visit * Reason Onset Date Comments Test Results 06/27/2023 Encounter Details Date Type Department Care Team (Late st Contact Info) Description 06/27/2023 Telephone [facility] [address] [place] [address] Cj Watson MD [address] [place] [address] Test Results Allergies Active Allergy Reactions Criticality Noted Date Comments Sulfa Antibiotics High 05/04/2021 Sulfa's- hives per pt report documented as of this encounter (statuses as of 06/28/2023) Medications Medication Sig Dispensed Refills Start Date [...] differently:25 mg Oral QHS PRN, Anxiety,Needs to roller picker, Reported on 06/21/2023 documented as of this encounter (statuses as of 06/28/2023) Active Problems Problem Noted Date Diagnosed Date Pancytopenia 06/05/2022 Alcohol dependence 07/04/2019 Chronic thoracic back pain 07/04/2019 Hypothyroidism 07/04/2019 GERD (gastroesophageal reflux disease) 0 Adjustment disorder with depressed mood 07/04/19 20 documented as of this encounter (statuses as of 06/28/2023) Immunizations Name Administration Dates Next Due COVID-19 mRNA, LNP-s, No Pre serve, 2-Dose Series ([employer]) 05/19/2020 Hepatitis B, 20+ yrs 06/20/2022,08/02/2007 Pneumococcal [...] encounter Miscellaneous Notes * Telephone Encounter - Lexi Garrido RN - 06/28/2023 10:48 AM EDT I called and reiterated the results and transferred her to scheduling. * Telephone Encounter - May Villalta CRNP [...] she is agreeable to schedule. GRACE Tan * Telephone Encounter - Lorri Maki RN [...] Description 07/05/2023 6:10 PM EDT Pharmacy Pharmacy, [facility] [address] [facility] [address] [facility] [place] [address] 12/10/2023 9:00 AM EDT Office Visit Psychiatry, [place] 200 [facility] [place] [address] Radha Hansen CRNP 200 [facility] [place] [place] [address] Scheduled Procedures Name Priority Associated Diagnoses Date/Ti [...] filedocumented as of this encounter Care Teams Traffic Analyst Relationship Specialty Start Date End Date Cj Watson MD [address] [place] [address] PCP - General Family Medicine 08/18/19 documented as of this encounter
--- OUTSIDE RECORDS SUMMARY | 2023-08-22 23:36 | External Medical Summary | Summary of Care ---
Author Name Unknown Organization [facility] Address [address] [facility] [place] [address] Phone [phone] Care Team Providers Care Color Maker Name Role Phone Cj Watson MD Primary Care Provider [phone] Reason for Visit * Reason Onset Date Comments Test Results 06/27/2023 Other 06/27/2023 Encounter Details Date Type Department Care Team (Late st Contact Info) Description 06/27/2023 Telephone Gastroenterology, [facility] [address] [place] [address] May Villalta CRNP [address] [place] [address] Test Results; Other Allergies Active Allergy Reactions [...] differently:25 mg Oral QHS PRN, Anxiety,Needs to pharmacy picking technician, Reported on 06/21/2023 documented as of this [...] mRNA, LNP-s, No Pre serve, 2-Dose Series ([employer]) 05/19/2020 Hepatitis B, 20+ yrs 06/20/2022,08/02/2007 Pneumococcal [...] 07/17/2023 9:00 AM EDT Office Visit Pharmacy, [facility] 132 [facility] [place] [address] [facility] 132 [facility] [place] [address] 07/31/2023 8:00 AM EDT Imaging Radiology [facility] 1st Floor, [place] 132 [facility] [place] [address] 12/10/2023 9:00 AM EDT Office Visit Psychiatry, [place] [address] [place] [address] Radha Hansen CRNP [address] [place] [address] Scheduled Procedures Name Priority Associated Diagnoses Date/Ti [...] filedocumented as of this encounter Care Teams Color Maker Relationship Specialty Start Date End Date Cj Watson MD [address] [place] [address] PCP - General Family Medicine 08/18/19 documented as of this encounter
--- OUTSIDE RECORDS SUMMARY | 2023-08-22 23:36 | External Medical Summary | Summary of Care ---
Author Name Unknown Organization [facility] Address [address] [place] [facility] [place] [address] Phone [phone] Care Team Providers Care Psychologist Name Role Phone Cj Watson MD Primary Care Provider [phone] Reason for Visit * Reason Onset Date Comments Test Results 06/27/2023 Encounter Details Date Type Department Care Team (Late st Contact Info) Description 06/27/2023 Telephone [facility] [address] [place] [address] Cj Watson MD [address] [place] [address] Test Results Allergies Active Allergy [...] mg Oral QHS PRN, Anxiety,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er and packer, Reported on 06/21/2023 documented as of this [...] mRNA, LNP-s, No Pre serve, 2-Dose Series ([employer]) 05/19/2020 Hepatitis B, 20+ yrs 06/20/2022,08/02/2007 [...] Description 07/05/2023 6:10 PM EDT Pharmacy Pharmacy, [facility] 132 [facility] [place] [address] [facility] [place] [address] [place] [address] 12/10/2023 9:00 AM EDT Office Visit Psychiatry, [place] [address] [place] [address] Radha Hansen CRNP [address] [place] [address] [address] Scheduled Procedures Name Priority Associated Diagnoses Date/Ti [...] filedocumented as of this encounter Care Teams Psychologist Relationship Specialty Start Date End Date Cj Watson MD [address] [place] [address] PCP - General Family Medicine 08/18/19 documented as of this encounter
--- OUTSIDE RECORDS SUMMARY | 2023-08-22 23:36 | External Medical Summary ---
Author Name Unknown Address Unknown Organization K01:[facility] [address] [place] [address] Laboratory Report Ordering Provider Test Date Status KATIE NARVAEZ 06/21/2023 11:29:04 Final Observation Date Value Abnormality Reference (Units ) Status Magnesium 06/21/2023 11:29:04 2.1 1.5-2.6 (m g/dL) Final Performing Location [facility] [address] [place] [address]
--- OUTSIDE RECORDS SUMMARY | 2023-08-22 23:36 | External Medical Summary | Summary of Care ---
Author Name Unknown Organization [facility] Address [address] [facility] [place] [address] Phone [phone] Care Team Providers Care Milling/Polishing Operator Name Role Phone Cj Watson MD Primary Care Provider [phone] Encounter Details Date Type Department Care Team (Late st Contact Info) Description 06/26/2023 Orders Only PATIENT PORTAL DO NOT DELETE THIS DEPT USED BY [place] [address] Allergies Active Allergy Reactions Criticality Noted Date [...] mRNA, LNP-s, No Pre serve, 2-Dose Series ([employer]) 05/19/2020 Hepatitis B, 20+ yrs 06/20/2022,08/02/2007 Pneumococcal [...] Description 06/26/2023 12:30 PM EDT Imaging Radiology [facility] 2nd [facility] 132 [facility] [place] [address] 07/05/2023 6:10 PM EDT Pharmacy Pharmacy, [address] [place] [address] [facility] [address] [place] [address] 12/10/2023 9:00 AM EDT Office Visit Psychiatry, [place] [address] [place] [address] Radha Hansen CRNP [address] [place] [address] Scheduled Procedures Name Priority Associated Diagnoses Date/Ti [...] filedocumented as of this encounter Care Teams Milling/Polishing Operator Relationship Specialty Start Date End Date Cj Watson MD [address] [place] [address] PCP - General Family Medicine 08/18/19 documented as of this encounter
--- OUTSIDE RECORDS SUMMARY | 2023-08-22 23:36 | External Medical Summary | Summary of Care ---
Author Name Unknown Organization [facility] Address [address] [place] [facility] [place] [address] Phone [phone] Care Team Providers Care Neighborhood Aide Name Role Phone Cj Watson MD Primary Care Provider [phone] Reason for Visit * Reason Onset Date Comments Test Results 06/27/2023 Encounter Details Date Type Department Care Team (Late st Contact Info) Description 06/27/2023 Telephone [facility] [address] [place] [address] Cj Watson MD [address] [place] [address] Test Results Allergies Active Allergy [...] differently:25 mg Oral QHS PRN, Anxiety,Needs to oyster picker, Reported on 06/21/2023 documented as of [...] mRNA, LNP-s, No Pre serve, 2-Dose Series ([employer]) 05/19/2020 Hepatitis B, 20+ yrs 06/20/2022,08/02/2007 Pneumococcal [...] encounter Miscellaneous Notes * Telephone Encounter - Lorri Maki RN [...] Description 07/05/2023 6:10 PM EDT Pharmacy Pharmacy, [facility] 132 [facility] [place] [address] [facility] [address] [place] [address] 12/10/2023 9:00 AM EDT Office Visit Psychiatry, [place] [address] [place] [address] [address] Radha Hansen CRNP 200 [facility] [place] [address] Scheduled Procedures Name Priority Associated Diagnoses Date/Ti [...] filedocumented as of this encounter Care Teams Neighborhood Aide Relationship Specialty Start Date End Date Cj Watson MD [address] [place] [address] PCP - General Family Medicine 08/18/19 documented as of this encounter
--- OUTSIDE RECORDS SUMMARY | 2023-08-22 23:36 | External Medical Summary | Summary of Care ---
Author Name Unknown Organization [facility] Address [address] [facility] [place] [address] Phone [phone] Care Team Providers Care Harnessmaker Apprentice Name Role Phone Cj Watson MD Primary Care Provider [phone] Encounter Details Date Type Department Care Team (Late st Contact Info) Description 06/22/2023 Orders Only Gastroenterology [address] [place] [address] May Villalta CRNP [address] [place] [address] Elevated LFTs* Allergies Active Allergy Reactions Criticality Noted Date Comments Sulfa Antibiotics High 05/04/2021 Sulfa's- hives per pt report documented as of this encounter (statuses as of 06/22/2023) Medications Medication Sig Dispensed Refills Start Date [...] mg Oral QHS PRN, Anxiety,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er / packer, Reported on 06/21/2023 documented as of this encounter (statuses as of 06/22/2023) Active Problems Problem Noted Date Diagnosed Date Pancytopenia 06/05/2022 Alcohol dependence 07/04/2019 Chronic thoracic back pain 07/04/2019 Hypothyroidism 07/04/2019 GERD (gastroesophageal reflux disease) 0 Adjustment disorder with depressed mood 07/04/19 20 documented as of this encounter (statuses as of 06/22/2023) Immunizations Name Administration Dates Next Due COVID-19 mRNA, LNP-s, No Pre serve, 2-Dose Series (Enjoyor) 05/19/2020 Hepatitis B, 20+ yrs 06/20/2022,08/02/2007 Pneumococcal [...] 06/25/2023 11:15 AM EDT Hospital Encounter ENDO [facility], Endoscopy Room [facility] [address] [place] [address] Santos Fierro MD [address] [place] [address] 06/25/2023 11:15 AM EDT - 06/25/2023 11:45 AM EDT Surgery ENDO [facility], Endoscopy Room [facility] [address] [place] [address] Santos Fierro MD [address] [place] [address] ESOPHAGOGASTRODUODENOSCOPY (EGD), FLEXIBLE, TRANSORAL, DIAGNOSTIC 06/26/2023 12:30 PM EDT Imaging Radiology [address] [place] [address] 07/05/2023 6:10 PM EDT Pharmacy Pharmacy, [facility] [place] [address] [place] [address] [facility] [address] [place] [address] 12/10/2023 9:00 AM EDT Office Visit Psychiatry, [place] [address] [facility] [place] [address] [place], Radha SchmidtGRACE nash [address] [facility] [place] [address] Scheduled Orders Name Type Priority Associated Diagnoses Orde r Schedule HEPATIC FUNCTION PANEL Lab Routine Elevated LFTs Expected: 06/29/2023, Expires: 06/21/2024 Scheduled Procedures Name Priority Associated Diagnoses Date/Ti [...] of this encounter Visit Diagnoses Diagnosis Elevated LFTs- Primary Other abnormal blood chemistry Alcoholic cirrhosis of liver without ascites (HCC) Alcoholic cirrhosis of liver documented in this encounter Care Teams Harnessmaker Apprentice Relationship Specialty Start Date End Date Cj Watson MD [address] [place] [address] PCP - General Family Medicine 08/18/19 documented as of this encounter
--- OUTSIDE RECORDS SUMMARY | 2023-08-22 23:36 | External Medical Summary ---
Author Name Unknown Address Unknown Organization [id number]:[facility] - [address] [place] [address] Laboratory Report Ordering Provider Test Date Status KATIE NARVAEZ 06/29/2023 09:50:33 Final Observation Date Value Abnormality Reference (Units ) Status Albumin 06/29/2023 09:50:33 2.6 Below low normal 3.8-5.0 (g/dL) Final AST (Aspartate aminotransferase) 06/29/2023 09:50:33 112 Above high normal 10-35 (U/L) Final Alk Phos 06/29/2023 09:50:33 331 Above high normal 35-130 (U/L) Final ALT (Alanine aminotransferase) 06/29/2023 09:50:33 32 10-35 (U/L) Final Bilirubin, Total 06/29/2023 09:50:33 4.4 Above high normal <=1.2 (mg/dL) Final Bilirubin, Direct 06/29/2023 09:50:33 2.6 Above high normal 0.0-0.3 (mg/dL) Final Protein 06/29/2023 09:50:33 7.3 6.0-8.3 (g/dL) Final Performing Location [facility] - [address] [place] [address]
--- OUTSIDE RECORDS SUMMARY | 2023-08-22 23:36 | External Medical Summary | Summary of Care ---
Author Name Unknown Organization [facility] Address [address] [facility] [place] [address] Phone [phone] Care Team Providers Care Facility Operations Manager Name Role Phone Cj Watson MD Primary Care Provider [phone] Reason for Referral * Evaluate & Treat - Unlimited Visits (Within 30 days (routine)) - Authorized Specialty Diagnoses / Procedures Referred By Minnie cam Referred To Contact Psychiatry Diagnoses Depression with anxiety Alcohol abuse May Villalta CRNP [address] [place] [address] Referral ID Status Reason Start Date Expiration Date Visits Requested Visits Authorized [id number] Authorized Specialty Services Required 06/21/[phone] Question Answer Referral Priority Within 30 days (routine) Where should this appointment be scheduled? [facility] Is this referral for medication management? Yes Reason for Referral Substance Use Disorder Specific Condition: Other (Comment) Comments Anxiety, Depression, ETOH abuse Reason for Visit * Reason Comments Other Encounter Details Date Type Department Care Team (Late st Contact Info) Description 06/21/2023 10:30 AM EDT Office Visit Gastroenterology, [facility] [address] [address] May Villalta CRNP [address] [id number] Alcoholic cirrhosis of liver without ascites (HCC)*; Anxiety; Depression with anxiety; Alcohol abuse Allergies Active Allergy Reactions Criticality Noted Date [...] Sucralfate 1 GM Oral Tablet (Carafate) 0 3 Active Ferrous Sulfate 325 (65 Fe) MG Oral Tablet (Feosol) Take 1 Tablet by mouth in the morning and 1 Tablet before bedtime. 60 Tablet 11 3 Active Albumin Human 25 % Intravenous SolutionIndication s:Alcoholic cirrhosis of liver with ascites (HCC) 25G IV pre-paracentesis followed by 25 G IV post paracentesis. May run at 100mL/hr. 200 mL 0 3 Active Additional Information Patient not taking.Reported on 11/01/2022 buPROPion HCl ER (XL) 150 MG Oral Tablet Extended Release 24 Hour (Wellbutrin XL) TAKE ONE TABLET BY MOUTH IN THE MORNING 90 Tablet 3 3 Active NIFEdipine 10 MG Oral Capsule (Procardia)Indicat ions:Raynaud's disease without gangrene TAKE ONE CAPSULE BY MOUTH EVERY DAY IN THE MORNING. 30 Capsule 5 3 Active Additional Information Patient taking differently: "As needed", Reported on 06/21/2023 Gabapentin 800 MG Oral Tablet (Neurontin)Indicat ions:Chronic left-sided thoracic back pain TAKE ONE TABLET BY MOUTH IN THE MORNING, ONE TABLET AT NOON AND ONE TABLET BEFORE BEDTIME 270 Tablet 1 3 Active Lidocaine 5 % External Patch (Lidoderm) daily. 0 3 Active traMADol HCl 50 MG Oral Tablet (Ultram) 1 Tablet. 0 3 Active Naltrexone HCl 50 MG Oral Tablet (Revia) 1 Tablet in the morning. 0 3 Active busPIRone HCl 5 MG Oral [...] 3 Active Lactulose 10 GM/15ML Oral Solution (Constulose)Indica tions:Constipation , unspecified constipation type TAKE 15ML BY MOUTH THREE A DAY NEEDED to have 2-3 bowel movements per day 1439 mL 11 3 Active Thiamine HCl 100 MG Oral Tablet (vitamin B-1)Indications:Un complicated alcohol dependence (HCC) Take 1 Tablet by mouth in the morning. 90 Tablet 3 3 Active Folic Acid 1 MG Oral TabletIndications: Uncomplicated alcohol dependence (HCC) TAKE 1 TABLET BY MOUTH ONCE DAILY 90 Tablet 3 4 Active Gabapentin 400 MG Oral Capsule (Neurontin)Indicat ions:Burning pain TAKE 1 CAPSULE BY MOUTH THREE [...] 4 Active Spironolactone 25 MG Oral Tablet (Aldactone)Indicat ions:Alcoholic cirrhosis of liver with ascites (HCC) TAKE 2 TABLETS BY MOUTH EVERY MORNING 180 Tablet 1 4 Active hydrOXYzine HCl 25 MG Oral Tablet Take 1 Tablet by mouth at bedtime as needed for Anxiety. 30 Tablet 2 4 Active NSS 0.9 % SOLN 100 mL with cefTRIAXone 2 GM SOLR 2 g Administer 2 g intravenously daily. 0 024 Discontinued Melatonin 5 MG Oral Tablet Disintegrating Take by mouth. 0 024 Discontinued documented as of this encounter (statuses [...] Sign Reading Time Taken Comments Blood Pressure 129/83 06/21/2023 10:29 AM EDT Pulse 89 06/21/2023 10:29 AM EDT Temperature 36.7 C (98.1 F) 06/21/2023 10:29 AM E DT Respiratory Rate - - Oxygen Saturation - - Inhaled Oxygen Concentration - - Weight 67.4 kg (148 lb 9.6 oz) 06/21/2023 10:29 AM EDT Height - - Body Mass Index 25.51 01/30/2023 10:35 AM EST documented in this encounter Functional Status Functional Status Response Date of Assess ment Does this person have seriou s difficulty walking or climbing stairs? Yes 01/02/2022 documented as of this encounter Progress Notes * May Villalta, COLOR BUFFER - 06/21/2023 10:33 AM EDT DATE OF SERVICE: 06/21/23 REFERRING PHYSICIAN: Aspen Rivera MD CC: Cirrhosis, ascites. HPI: 06/21/23: Patient has stopped taking her naltrexone also no longer goes to counseling. She drinks wine nightly along with Advil PM to help her go to sleep. Admits that she has anxiety and depression.Daughter comes along to visit today. She denies any chest pain, shortness of breath. Does not take her lactulose regularly, does feel abdomen is somewhat distended. Bowels do not move daily. Denies any rectal bleeding or dark tarry stools. Denies any leg edema. 11/01/22: Patient undergoing counseling at [facility]. Started on naltrexone. Has not had any alcoholic beverages for the past 2 months. Admits he does not take her lactulose daily. Denies any confusion, dizziness, chest pain, shortness of breath, abdominal pain, nausea or vomiting, leg edema. Denies any gross signs of GI bleeding. 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 to help sleep. Melatonin makes her drowsy. DaughterRachel is with her today. 05/29/22: Patient admits that she is back to drinking wine at night sometimes. His helps with her having trouble sleeping and occasional left upper quadrant to flank discomfort. She denies any nausea, vomiting, appetite changes. Bowels move about 2 to 3 times a day, denies any rectal bleeding. Denies any swelling on her legs 02/21/22: Patient admitted that she relapsed into alcohol use back in November. Anticipating that she will start on Vivitrol injections every month to help with her cravings. She denies any falling,appetite or weight loss, balance issues, chest pain, shortness of breath, abdominal pain, nausea orvomiting. Bowels move at least once daily on lactulose. She has mild hematochezia which she attributes to hemorrhoids but knows blood in stools or dark tarry stools. Denies any leg edema either. 10/18/21: Patient is eating better, gaining some weight. Thought that her abdomen was getting distended again, filled with ascites however ultrasound evaluation done last month showed no signs of ascites. She denies any chest pain, shortness of breath, abdominal pain, nausea or vomiting, leg edema.Bowels move about twice a day, no dark tarry stools or rectal bleeding. Last alcohol intake was in April, she is been doing counseling once a week. 06/14/21: Patient feels that her abdomen is getting distended again. However denies any abdominal pain, nausea or vomiting, difficulty breathing, fever, chills. She remain abstinent of alcohol since March of this year. 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 Does occasionally have confusion with no dizziness, lightheadedness or falls. She started lactulose and having about 2 liquid bowel movements a day without rectal bleeding. No leg edema. 05/04/21: Patient was admitted at [facility] 04/26 to 04/30 for hypokalemia, ascites management. Had ultrasound-guided paracenteses on April 26, 2021, with 1.5 L of ascites fluid removed. No signs of SBP.She was discharged on Lasix 20 mg and spironolactone 50 mg daily. Patient notes that she is still having some abdominal distension, burning sensation over the left upper quadrant area. Daughter who is with her today states that patient is getting somewhat confused, was having hallucinations yesterday. Patient has not been taking her lactulose twice daily, using as needed to help stimulate bowel movement instead. Her bowel movement this morning was formed, no signs of bleeding noted. Denies any chest pain, shortness of breath, nausea or vomiting. Nutrition is an issue, she is not eating very well, gets full easily and mostly eating liquids to have full liquid foods. She denies any lightheadedness, dizziness, falling. States that she is 2 months sober right now 04/25/2021: Maribel Toribio is a 55 year old female referred by Aspen Rivera MD for evaluation & management of cirrhosis and ascites accumulation. Patient was admitted at [facility] in 2019 for "acute liver failure", related to alcohol abuse. She reports that she was self medicating with alcohol for her lower back pain. She was established with [facility] in 2019, Dr. Hare, however was lost to follow-up afterwards. She was sober for a year up till June of 2020 however started drinking again, about to servings of wine a day up till 6 weeks ago. In the last few weeks she had felt very fatigued and notice that her abdomen is getting distended and is having left lower quadrant abdominal discomfort. She was evaluated by her PCP and noted to have ascites and is having a UTI currently on Augmentin. Her labs are also indicative of hypokalemia, macrocytic anemia, elevated LFTs as noted below. She does not appear to be encephalopathic today no reports any symptoms of dizziness, lightheadedness, or confusion. She is currently on lactulose however using a flow study for constipation management. She denies any symptoms of shortness of breath, chest pain, however has mild nausea no vomiting. She denies any swelling on her legs. She denies any rectal bleeding or dark tarry stools. Sober x6 weeks from alcohol. Current partner in-home does drink alcohol but no alcohol at home. Shehas tattoos, no body piercing. Denies any exposure to hepatitis infections. Denies any uses of NSAIDs or acetaminophen products. Denies any family history is of liver disease including AH, GI malignancies. GI WORKUP: EGD/EUS 05/18/2021: - Ectopic gastric mucosa in the upper third of the esophagus. - Z-line regular, 40 cm from the incisors. - Grade I esophageal varices. - Portal hypertensive gastropathy. - Normal duodenal bulb and second portion of the duodenum. - There was no sign of significant pathology in the ampulla. - There was no sign of significant pathology in the common bile duct. - There was no sign of significant pathology in the gallbladder. - There was abnormal echogenicity in the liver. Fine needle biopsy performed. - There was no sign of significant pathology in the entire pancreas. - Endosonographic images of the left adrenal gland - The celiac trunk was endosonographically normal. A. Liver, left lobe, biopsy: Cirrhotic liver with mild macrovesicular steatosis and mild steatohepatitis, see note. Note: Section reveals cirrhosis with mild steatohepatitis. The etiology of cirrhosis is uncertain from histology and the differential diagnosis would include burnt out TERENCE in the setting of the patient's history of alcoholic use. No typical features of autoimmune hepatitis are seen. Clinical correlation is recommended to identify the exact etiology. US 04/22/2021: 1. Cirrhotic changes of the liver. 2. Small to moderate ascites throughout the abdomen. 3. Pericholecystic fluid, likely reactive Results for MARIBEL TORIBIO ( ) as of 04/25/2021 15:08 Ref. Range 04/20/2021 14:42 Sodium Latest Ref Range: 135 - 146 mmol/L 129 (L) Potassium Latest Ref Range: 3.5 - 5.1 mmol/L 4.1 Chloride Latest Ref Range: 98 - 107 mmol/L 95 (L) CO2 Latest Ref Range: 22 - 32 mmol/L 22 BUN Latest Ref Range: 6 - 20 mg/dL 3 (L) Creatinine Latest Ref Range: 0.5 - 1.0 mg/dL 0.6 Estimated Glomerular Filtration Rate Latest Ref Range: >=60 mL/min >90 Anion Gap Latest Ref Range: 7 - 15 mmol/L 12 Glucose Latest Ref Range: 70 - 120 mg/dL 73 Calcium Latest Ref Range: 8.4 - 10.2 mg/dL 8.4 Magnesium Latest Ref Range: 1.5 - 2.6 mg/dL 2.1 Phosphorus Latest Ref Range: 2.5 - 4.8 mg/dL 3.7 Protein Latest Ref Range: 6.0 - 8.3 g/dL 8.1 Folic Acid Latest Ref Range: >4.5 ng/mL 17.2 TSH Latest Ref Range: 0.27 - 4.20 uIU/mL 31.00 (H) TSH WITH FREE T4 IF INDICATED Unknown Rpt (A) T4, Free Latest Ref Range: 0.9 - 1.7 ng/dL 1.2 ANEMIA CBC Unknown Rpt (A) WBC Latest Ref Range: 4.00 - 10.80 K/uL 8.87 HGB Latest Ref Range: 12.0 - 15.3 g/dL 11.2 (L) HCT Latest Ref Range: 36.0 - 45.2 % 34.6 (L) MCV Latest Ref Range: 81.5 - 97.5 fL 107.1 (H) Plt Latest Ref Range: 140 - 400 K/uL 140 Absolute Neutrophils Latest Ref Range: 1.80 - 7.70 K/uL 6.50 Absolute Lymphocytes Latest Ref Range: 1.00 - 4.80 K/ul 1.39 Absolute Monocytes Latest Ref Range: 0.00 - 1.10 K/uL 0.74 Absolute Eosinophils Latest Ref Range: 0.00 - 0.70 K/uL 0.11 Absolute Basophils Latest Ref Range: 0.00 - 0.20 K/uL 0.08 Vitamin B12 Latest Ref Range: 232-1,245 pg/mL >2,000 (H) Immature Reticuloctye Fraction Latest Ref Range: 2.5 - 20.6 % 20.1 Reticulocyte Hemoglobin Latest Ref Range: 29.7 - 37.4 pg 40.4 (H) Absolute Reticulocyte Latest Ref Range: 31.3 - 100.1 K/uL 136.0 (H) Reticulocyte Percent Latest Ref Range: 0.80 - 1.90 % 4.21 (H) Albumin Latest Ref Range: 3.8 - 5.0 g/dL 2.6 (L) AST Latest Ref Range: 10 - 35 U/L 129 (H) ALT Latest Ref Range: 10 - 35 U/L 15 Alkaline Phosphatase Latest Ref Range: 35 - 130 U/L 257 (H) Bilirubin, Total Latest Ref Range: <=1.2 mg/dL 3.4 (H) Past Medical History: Diagnosis Date Alcohol abuse Alcoholic cirrhosis (HCC) Ascites due to alcoholic cirrhosis (HCC) Depression Hepatic encephalopathy (HCC) Family History Problem Relation Age of Onset Heart disease Mother Diabetes Mother No Known Problems Father Hypertension Brother Breast Cancer No significant family history Past Surgical History: Procedure Laterality Date BREAST BIOPSY Left 2018 Benign DELIVERY x3 COLONOSCOPY 04/17/2017 suboptimal prep but no abnormality COLONOSCOPY, DIAGNOSTIC (RECTUM) 10/04/2022 fair prep, repeat 3 yrs / COLONOSCOPY FLEXIBLE PROXIMAL DIAGNOSTIC performed by Flores Montalvo DO at ENDOSCOPY [facility] EGD, FLEXIBLE, DIAGNOSTIC 05/18/2021 Portal hypertensive gastropathy, eso varices, repeat 1 yr / ESOPHAGOGASTRODUODENOSCOPY (EGD), FLEXIBLE, TRANSORAL, DIAGNOSTIC performed by Paola Marin MD at ENDOSCOPY [facility] EGD, FLEXIBLE, DIAGNOSTIC 10/04/2022 eso varices, portal hypertensive gastropathy, repeat 1 yr / ESOPHAGOGASTRODUODENOSCOPY (EGD), FLEXIBLE, TRANSORAL, DIAGNOSTIC performed by Flores Montalvo DO at ENDOSCOPY [facility] EGD, FLEXIBLE, DIAGNOSTIC N/A 05/31/2022 [facility], EGD, lg esophageal varices with red federico sign, portal hypertensice gastropathy / no specimenscollected / 3 month follow up EGD, W/ENDOSCOPIC US 05/18/2021 mild steatohepatitis / ESOPHAGOGASTRODUODENOSCOPY (EGD), FLEXIBLE, TRANSORAL, ENDOSCOPIC ULTRASOUNDperformed by Paola Marin MD at ENDOSCOPY [facility] Social History Tobacco Use Smoking status: Never Smokeless tobacco: Never Vaping Use Vaping Use: Never used Substance Use Topics Alcohol use: Yes Comment: had stopped completely but reports ocasional use now Drug use: Never Review of patient's allergies indicates: Allergen Reactions Sulfa Antibiotics Sulfa's- hives per pt report Current Outpatient Medications Medication Sig Dispense Refill B-12 1000 MCG Oral Capsule Take 1 Capsule by mouth in the morning. D3-1000 25 MCG (1000 UT) Oral Capsule (Cholecalciferol) Take 1 Capsule by mouth in the morning. Magnesium Oxide 400 MG Oral Capsule Take 1 Capsule by mouth in the morning and 1 Capsule before bedtime. Take by mouth 400 mg in the morning AND 400 mg before bedtime.. 60 Capsule 5 Sucralfate 1 GM Oral Tablet (Carafate) Ferrous Sulfate 325 (65 Fe) MG Oral Tablet (Feosol) Take 1 Tablet by mouth in the morning and 1 Tablet before bedtime. 60 Tablet 11 buPROPion HCl ER (XL) 150 MG Oral Tablet Extended Release 24 Hour (Wellbutrin XL) TAKE ONE TABLET BY MOUTH IN THE MORNING 90 Tablet 3 NIFEdipine 10 MG Oral Capsule (Procardia) TAKE ONE CAPSULE BY MOUTH EVERY DAY IN THE MORNING. (Patient taking differently: "As needed") 30 Capsule 5 Gabapentin 800 MG Oral Tablet (Neurontin) TAKE ONE TABLET BY MOUTH IN THE MORNING, ONE TABLET AT NOON AND ONE TABLET BEFORE BEDTIME 270 Tablet 1 Melatonin 5 MG Oral Tablet Disintegrating Take by mouth. Omeprazole 40 MG Oral Capsule Delayed Release (PriLOSEC) TAKE 1 CAPSULE BY MOUTH TWICE DAILY 180 Capsule 1 Lactulose 10 GM/15ML Oral Solution (Constulose) TAKE 15ML BY MOUTH THREE A DAY NEEDED to have 2-3 bowel movements per day 1439 mL 11 Thiamine HCl 100 MG Oral Tablet (vitamin B-1) Take 1 Tablet by mouth in the morning. 90 Tablet 3 Folic Acid 1 MG Oral Tablet TAKE 1 TABLET BY MOUTH ONCE DAILY 90 Tablet 3 Gabapentin 400 MG Oral Capsule (Neurontin) TAKE 1 CAPSULE BY MOUTH THREE TIMES DAILY every morning,at noon, and before bedtime 270 Capsule 3 Furosemide 40 MG Oral Tablet (Lasix) TAKE 1 TABLET BY MOUTH EVERY MORNING 90 Tablet 2 Levothyroxine Sodium 150 MCG Oral Tablet (Levoxyl) TAKE 1 TABLET BY MOUTH EVERY MORNING. AT LEAST 30 MINUTES PRIOR TO BREAKFAST OR OTHER MEDICATIONS 90 Tablet 3 Spironolactone 25 MG Oral Tablet (Aldactone) TAKE 2 TABLETS BY MOUTH EVERY MORNING 180 Tablet 1 Albumin Human 25 % Intravenous Solution 25G IV pre-paracentesis followed by 25 G IV post paracentesis. May run at 100mL/hr. (Patient not taking: Reported on 11/01/2022) 200 mL 0 Lidocaine 5 % External Patch (Lidoderm) daily. (Patient not taking: Reported on 01/30/2023) traMADol HCl 50 MG Oral Tablet (Ultram) 1 Tablet. Naltrexone HCl 50 MG Oral Tablet (Revia) 1 Tablet in the morning. (Patient not taking: Reported on 06/21/2023) busPIRone HCl 5 MG Oral Tablet (Buspar) Take 1 Tablet by mouth in the morning and 1 Tablet at noon and 1 Tablet before bedtime. Take 7.5 mg every 8 hours as needed for anxiety. (Patient not taking: Reported on 06/21/2023) No current facility-administered medications for this visit. REVIEW OF SYSTEMS: See HPI above; All other findings negative. EXAM: Filed Vitals: 06/21/23 1029 BP: 129/83 Pulse: 89 Temp: 36.7 C (98.1 F) Weight: 67.4 kg (148 lb 9.6 oz) GENERAL: Well developed and well nourished in no acute distress. SKIN: No rashes, ulcers, jaundice or spider angiomata. HEENT: Normocephalic, sclera clear. NECK: Supple, trachea midline, no JVD LUNGS: Clear to auscultation bilaterally, no respiratory distress or accessory muscles used. HEART: Regular rate & rhythm, no murmurs and no gallops. ABDOMEN: Mild distension, non tender, BS present EXTREMITIES: No palmar erythema, no ankle edema, no skin discoloration, no clubbing, no cyanosis. NEURO: No lateralizing findings. Sensory/Motor grossly normal. ASSESSMENT AND PLAN: Maribel Toribio is a 57 year old female, w hx of ETOH abuse, decompensated cirrhosis w ascites, grade I varices w red federico sign (banded 05/2022), hyponatremia and elevated LFTs. MELD 12. She was evaluated by [facility] Transplant team, though not listed as MELD decreased from 15 to 11 at time of evaluation. She unfortunately relapsed using ETOH. + anxiety, depression, using ETOH w Advil PM to help her sleep - MELD labs q3-6 months. - Lab orders today: Cbc with wbc differential Comprehensive metabolic panel Pt inr Alpha-fetoprotein tumor marker Vitamin b12 Magnesium Ferritin Iron screen, including tibc Folic acid - Last EGD 10/2022: no varices, + PHG. Need repeat EGD this year - Last Colonoscopy 10/2022: hemorrhoids, portal hypertensive colopathy. Recall in 2025 - Titrate Lactulose for effect at least 3 BMs daily - Lasix to 40mg daily + Spironolactone 50mg daily. - Hep A immunity: not immune; encourage vaccination - Hep B immunity: immune - HCC screening [id number] (u/s; AFP): due now - Encouraged to abstain from ETOH, illicit drugs, APAP no more than 2g daily. Avoid NSAIDs - Low salt (2g) diet daily - Psych referral. Daughter will help her get re-established w [facility] - Hydroxyzine 25mg QHS prn anxiety. Reminded to not take med w ETOH I spent a total of 30 minutes on the date of service in review of patient's record, and previouslyobtained information in person and appropriate medical visit, discussion and education of plan, with patient and/or caregiver, placing orders for tests/referral/procedures as medically necessary and documentation of pertinent clinical information in patient's medical records for their visit today. RETURN TO CLINIC: 3 months or sooner prn Lindsay Clark [facility] documented in this encounter Nursing Notes * Christin Brambila RN - 06/21/2023 10:28 AM EDT Pt here for f/u cirrhosis. Says she is no longer taking naltrexone stating "it didn't work for me."Pt reports occasional alcohol use currently. documented in this encounter Plan of Treatment Upcoming Encounters Date Type Department Care Team (Latest Contact Info) Description 06/21/2023 11:40 AM EDT Laboratory Laboratory, [facility] [address] [id number] [facility] [address] [address] Alcoholic cirrhosis of liver without ascites (HCC) 06/25/2023 11:15 AM EDT Hospital Encounter ENDO [facility], Endoscopy Room [facility] [address] [phone] Santos Fierro MD [address] [place] [address] 06/25/2023 11:15 AM EDT - 06/25/2023 11:45 AM EDT Surgery ENDO [facility], Endoscopy Room [facility] [address] [id number] Santos Fierro MD [address] [place] [address] ESOPHAGOGASTRODUODENOSCOPY (EGD), FLEXIBLE, TRANSORAL, DIAGNOSTIC 06/26/2023 12:30 PM EDT Imaging Radiology [facility] [address] [address] 07/05/2023 6:10 PM EDT Pharmacy Pharmacy, [facility] [address] [address] Srikanth Resnick [facility] [address] [address] 12/10/2023 9:00 AM EDT Office Visit [place]iatry, [place] [address] [address] [place], GRACE Donaldson [address] [place] [address] Pending Results Name Type Priority Associated Diagnoses [...] without ascites (HCC) 06/21/2023 11:29 AM EDT FERRITIN Lab Routine Alcoholic cirrhosis of liver without ascites (HCC) 06/21/2023 11:29 AM EDT IRON SCREEN, INCLUDING TIBC Lab Routine Alcoholic cirrhosis of liver without ascites (HCC) 06/21/2023 11:29 AM EDT FOLIC ACID Lab Routine Alcoholic cirrhosis of liver without ascites (HCC) 06/21/2023 11:29 AM EDT Scheduled Orders Name Type Priority Associated Diagnoses Orde r Schedule CBC WITH WBC DIFFERENTIAL Lab Routine Alcoholic cirrhosis of liver without ascites (HCC) Expected: 06/21/2023, Expires: 06/20/2024 COMPREHENSIVE METABOLIC PANEL Lab Routine Alcoholic cirrhosis of liver without ascites (HCC) Expected: 06/21/2023, Expires: 06/20/2024 PT INR Lab Routine Alcoholic cirrhosis of liver without ascites (HCC) Expected: 06/21/2023, Expires: 06/20/2024 ALPHA-FETOPROTEIN TUMOR MARKER Lab Routine Alcoholic cirrhosis of liver without ascites (HCC) Expected: 06/21/2023, Expires: 06/20/2024 US ABDOMEN LIMITED Medical Imaging Routine Alcoholic cirrhosis of liver without ascites (HCC) Ordered: 06/21/2023 EGD, FLEXIBLE, DIAGNOSTIC Procedures Routine Alcoholic cirrhosis of liver without ascites (HCC) Ordered: 06/21/2023 VITAMIN B12 Lab Routine Alcoholic cirrhosis of liver without ascites (HCC) Expected: 06/21/2023, Expires: 06/20/2024 MAGNESIUM Lab Routine Alcoholic cirrhosis of liver without ascites (HCC) Expected: 06/21/2023, Expires: 06/20/2024 IRON SCREEN, INCLUDING TIBC Lab Routine Alcoholic cirrhosis of liver without ascites (HCC) Expected: 06/21/2023, Expires: 06/20/2024 FOLIC ACID Lab Routine Alcoholic cirrhosis of liver without ascites (HCC) Expected: 06/21/2023, Expires: 06/20/2024 Scheduled Procedures Name Priority Associated Diagnoses Date/Ti me ESOPHAGOGASTRODUODENOSCOPY ( EGD), FLEXIBLE, TRANSORAL, DIAGNOSTIC Alcoholic cirrhosis of liver without ascites (HCC) 06/25/2023 11:15 AM EDT COLONOSCOPY FLEXIBLE PROXIMA L DIAGNOSTIC Recall Screen for colon cancer ESOPHAGOGASTRODUODENOSCOPY ( EGD), FLEXIBLE, TRANSORAL, DIAGNOSTIC Recall Esophageal varices (HCC) Portal hypertensive gastropathy (HCC) Scheduled Referrals Name Type Priority Associated Diagnoses Orde r Schedule ADULT/PEDS PSYCHIATRY REFERRAL OP Referral Within 30 days (routine) Depression with anxiety Alcohol abuse Ordered: 06/21/2023 Health Maintenance Due Date Last Done Comments [...] Diagnosis Alcoholic cirrhosis of liver without ascites (HCC)- Primary Alcoholic cirrhosis of liver Anxiety Anxiety state, unspecified Depression with anxiety Dysthymic disorder Alcohol abuse Alcohol abuse, unspecified Alcoholic cirrhosis of liver without ascites (HCC) Alcoholic cirrhosis of liver Alcoholic cirrhosis of liver without ascites (HCC) Alcoholic cirrhosis of liver documented in this encounter Care Teams Facility Operations Manager Relationship Specialty Start Date End Date Cj Watson MD [address] [place] [address] PCP - General Family Medicine 08/18/19 documented as of this encounter
--- OUTSIDE RECORDS SUMMARY | 2023-08-22 23:36 | External Medical Summary | Summary of Care ---
Author Name Unknown Organization [facility] Address [address] [facility] [place] [address] Phone [phone] Care Team Providers Care Catalyst Operator Name Role Phone Cj Watson MD Primary Care Provider Reason for Visit * Reason Onset Date Comments Test Results 06/27/2023 Encounter Details Date Type Department Care Team (Late st Contact Info) Description 06/27/2023 Telephone Gastroenterology, [facility] [address] [place] [address] May Villalta CRNP [address] [place] [id number] Test Results Allergies Active Allergy Reactions Criticality [...] mg Oral QHS PRN, Anxiety,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, Reported on 06/21/2023 documented as of [...] mRNA, LNP-s, No Pre serve, 2-Dose Series ([employer]) 05/19/2020 Hepatitis B, 20+ yrs 06/20/2022,08/02/2007 Pneumococcal [...] [facility] [address] [facility] [place] [address] [facility] [address] [facility] [place] [id number] Chronic thoracic back pain* 07/17/2023 9:00 AM EDT Office Visit Pharmacy, [facility] [address] [facility] [place] [address] [facility] [place] [address] 07/31/2023 8:00 AM EDT Imaging Radiology [facility] 1st Floor, [place] [address] [facility] [place] [address] 12/10/2023 9:00 AM EDT Office Visit Psychiatry, [place] [address] [place] [address] Radha Hansen CRNP [address] [place] [address] Scheduled Procedures Name Priority Associated Diagnoses Date/Ti [...] filedocumented as of this encounter Care Teams Catalyst Operator Relationship Specialty Start Date End Date Cj Watson MD [address] [place] [address] PCP - General Family Medicine 08/18/19 documented as of this encounter
--- OUTSIDE RECORDS SUMMARY | 2023-08-22 23:37 | External Medical Summary | Summary of Care ---
Author Name Unknown Organization [facility] Address [address] [facility] [address] Phone [phone] Care Team Providers Care Marksmanship Instructor Name Role Phone Loco Watson MD Primary Care Provider [phone] Reason for Visit * Reason Comments eRx-Medication Refill Encounter Details Date Type Department Care Team (Late st Contact Info) Description 06/11/[address] [facility] [address] [place] [address] Loco Watson MD [address] [place] [address] Alcoholic cirrhosis of liver with ascites (HCC) Allergies Active Allergy Reactions Criticality Noted Date Comments Sulfa Antibiotics High 05/04/2021 Sulfa's- hives per pt report Tramadol Low 04/27/2021 Other reaction(s): NAUSEA documented as of this encounter (statuses as of 06/13/2023) Medications Medication Sig Dispensed Refills Start Date [...] Active Sucralfate 1 GM Oral Tablet (Carafate) TWICE A DAY 0 3 Active Ferrous Sulfate 325 (65 [...] THE MORNING. 30 Capsule 5 3 Active Gabapentin 800 MG Oral Tablet (Neurontin)Indicat ions:Chronic [...] hours as needed for anxiety. 0 Active NSS 0.9 % SOLN 100 mL with cefTRIAXone 2 GM SOLR 2 g Administer 2 g intravenously daily. 0 Active Melatonin 5 MG Oral Tablet Disintegrating Take by mouth. 0 Active Omeprazole 40 MG Oral Capsule [...] EVERY MORNING 180 Tablet 1 4 Active Spironolactone 25 MG Oral Tablet (Aldactone)Indicat ions:Alcoholic cirrhosis of liver with ascites (HCC) TAKE 2 TABLETS BY MOUTH EVERY MORNING 180 Tablet 3 3 024 Discontinued documented as of this encounter (statuses as of 06/13/2023) Active Problems Problem Noted Date Diagnosed Date Pancytopenia 06/05/2022 Alcohol dependence 07/04/2019 Chronic thoracic back pain 07/04/2019 Hypothyroidism 07/04/2019 GERD (gastroesophageal reflux disease) 0 Adjustment disorder with depressed mood 07/04/19 20 documented as of this encounter (statuses as of 06/13/2023) Immunizations Name Administration Dates Next Due COVID-19 mRNA, LNP-s, No Pre serve, 2-Dose Series ([employer]) 05/19/2020 Hepatitis B, 20+ yrs 06/20/2022,08/02/2007 [...] Tobacco: Never Alcohol Use Standard Drinks/Week Comments Not Currently 0 (1 standard drink = 0.6 oz pur e alcohol) last drink 12/07 2022 PHQ-2 Answer Date Recorded PHQ Adult Total [...] Telephone Encounter - Loco Watson MD - 06/13/2023 7:27 AM EDTSigned Prescriptions: Disp Refills Spironolactone 25 MG Oral Tablet (Aldacton*180 Ta*1 Sig: TAKE 2 TABLETS BY MOUTH EVERY MORNING Authorizing Provider: LOCO WATSON * Telephone Encounter - Rhonda Bermudez [facility] - 06/13/2023 6:17 AM EDTPending Prescriptions: Disp Refills Spironolactone 25 MG Oral Tablet (Aldacton*180 Ta*1 Sig: TAKE 2 TABLETS BY MOUTH EVERY MORNING * Telephone Encounter - Rhonda Bermudez RPh - 06/13/2023 6:17 AM EDT Unable to authorize medication refills for pended medication(s) at this time. Part of the protocol criteria used for refill authorization was not satisfied. Patient needs a BMP within normal limits. Please approve if appropriate. Sodium Results: Lab Results Component Value Date/Time SODIUM - [facility] 129 (L) 04/03/2023 09:54 AM SODIUM - [facility] 134 (L) 10/25/2022 02:06 PM SODIUM - [facility] 135 05/29/2022 10:12 AM SODIUM - [facility] 135 10/21/2019 04:32 PM SODIUM - [facility] 133 (L) 10/08/2019 11:04 AM SODIUM - [facility] 137 02/11/2018 11:03 AM Rhonda Batista Clinical Pharmacist [facility] ([facility]) (Formerly Telepharmacy) [phone] 06/13/2023, 6:17 AM * Telephone Encounter - Rhonda Bermudez RPh - 06/13/2023 6:16 AM EDT Did you pend patient's preferred pharmacy and medication before forwarding?yes Pharmacy: [id number] Pending Prescriptions: Disp Refills Spironolactone 25 MG Oral Tablet (Aldacto*180 Ta*1 Sig: TAKE 2 TABLETS BY MOUTH EVERY MORNING Last Visit: 01/30/2023 (in office), Visit date not found (telemedicine) Next Visit: Visit date not found If no future appointments scheduled, and last appointment is greater than a year ago, please schedule patient for a follow-up appointment Last date the medication was ordered: 06/20/22 Is this request for a controlled substance?No Urine Drug Screen: Results for orders placed or performed in visit on 06/07/22 TOXICOLOGY, URINE SCREEN W/ CONFIRMATION Result Value Amphetamines Screen, U Negative Benzodiazepines Screen, U Negative Cannabinoids Screen, U Negative Cocaine Metabolite Screen, U Negative Fentanyl Screen, U Negative Hydrocodone Screen, U Negative Methadone Metabolite Screen, U Negative Morphine/Codeine Screen, U Negative Oxycodone Screen, U Negative Narrative Cutoff Concentrations: Drug Level Amphetamines 500 ng/mL Benzodiazepines 100 ng/mL Cannabinoids 50 ng/mL Cocaine Metabolite 150 ng/mL Fentanyl 1 ng/mL Hydrocodone / Hydromorphone 300 ng/mL Methadone Metabolite 100 ng/mL Morphine / Codeine 300 ng/mL Oxycodone / Oxymorphone 100 ng/mL Screening results are presumptive and can only be used for medical purposes. Positive screening results are reflexed to confirmatory testing. Patient Phone Numbers AlertMe [phone] Labs: Lab Results Component Value Date/Time CREAT 0.7 04/03/2023 09:54 AM CREAT 0.7 10/21/2019 04:32 PM POTASSIUM 3.5 04/03/2023 09:54 AM POTASSIUM 4.5 10/21/2019 04:32 PM TSH 4.95 (H) 01/02/2022 01:34 PM TSH 0.11 (L) 10/08/2019 11:04 AM LDLCALC 114 01/02/2022 01:34 PM ALT 36 (H) 04/03/2023 09:54 AM ALT 23 10/21/2019 04:32 PM HGBA1C 5.1 01/02/2022 01:34 PM documented in this encounter Plan of Treatment Upcoming Encounters Date Type Department Care Team (Late st Contact Info) Description 06/21/2023 10:30 AM EDT Office Visit Gastroenterology, [facility] [address] [place] [address] May Villalta CRNP [address] [place] [address] 07/05/2023 6:10 PM EDT Pharmacy Pharmacy, [facility] [address] [place] [address] [facility] [place] [address] [place] [address] Scheduled Procedures Name Priority Associated Diagnoses Date/Ti [...] liver documented in this encounter Care Teams Marksmanship Instructor Relationship Specialty Start Date End Date Loco Watson MD [address] [place] [address] PCP - General Family Medicine 08/18/19 documented as of this encounter
--- OUTSIDE RECORDS SUMMARY | 2023-08-22 23:37 | External Medical Summary ---
Author Name Unknown Address Unknown Organization [id number]:[facility] [place] [address] [place] [address] Laboratory Report Ordering Provider Test Date Status BRICEKATIE 06/21/2023 11:29:04 Final Observation Date Value Abnormality Reference (Units ) Status Alpha-Fetoprotein 06/21/2023 11:29:04 3.8 0. 0-8.3 (ng/mL) Final Performing Location [facility] [place] [address] [place] [address]
--- OUTSIDE RECORDS SUMMARY | 2023-08-22 23:37 | External Medical Summary | Summary of Care ---
Author Name Unknown Organization [facility] Address [address] [place] [address] Phone [phone] Care Team Providers Care Real Estate Assessor Name Role Phone Cj Watson MD Primary Care Provider [phone] Encounter Details Date Type Department Care Team (Late st Contact Info) Description 03/20/2023 Telephone Infectious Disease, [place] [address] [place], [place] [id number] Christopher Main II, [address], [place] [id number] Allergies Active Allergy Reactions Criticality Noted Date Comments Sulfa Antibiotics High 05/04/2021 Sulfa's- hives per pt report Tramadol Low 04/27/2021 Other reaction(s): NAUSEA documented as of this encounter (statuses as of 04/03/2023) Medications Medication Sig Dispensed Refills Start Date [...] Oral Tablet (Carafate) TWICE A DAY 0 06/02/2022 Active Spironolactone 25 MG Oral Tablet (Aldactone)Indicati ons:Alcoholic cirrhosis of liver with ascites (HCC) TAKE 2 TABLETS BY MOUTH EVERY MORNING 180 Tablet 3 06/20/2022 Active Ferrous Sulfate 325 (65 Fe) MG [...] THE MORNING. 30 Capsule 5 10/12/2022 Active Folic Acid 1 MG Oral TabletIndications:U ncomplicated alcohol dependence (HCC) TAKE 1 TABLET BY MOUTH ONCE DAILY 90 Tablet 1 11/15/2022 Active Gabapentin 800 MG Oral Tablet (Neurontin)Indicati ons:Chronic left-sided thoracic back pain TAKE ONE TABLET BY MOUTH IN THE MORNING, ONE TABLET AT NOON AND ONE TABLET BEFORE BEDTIME 270 Tablet 1 11/20/2022 Active Gabapentin 400 MG Oral Capsule (Neurontin)Indicati ons:Burning pain TAKE 1 CAPSULE BY MOUTH THREE TIMES DAILY EVERY MORNING, AT NOON, AND BEFORE BEDTIME 270 Capsule 1 11/20/2022 Active Furosemide 40 MG Oral Tablet (Lasix) TAKE 1 TABLET BY MOUTH EVERY MORNING 90 Tablet 1 01/01/2023 Active Lidocaine 5 % External Patch (Lidoderm) [...] the morning. 90 Tablet 3 01/30/2023 Active Levothyroxine Sodium 150 MCG Oral Tablet (Levoxyl) TAKE 1 TABLET BY MOUTH EVERY MORNING. AT LEAST 30 MINUTES PRIOR TO BREAKFAST OR OTHER MEDICATIONS 90 Tablet 0 02/23/2023 Active documented as of this encounter (statuses as of 04/03/2023) Active Problems Problem Noted Date Diagnosed Date Pancytopenia 06/05/2022 Alcohol dependence 07/04/2019 Chronic thoracic back pain 07/04/2019 Hypothyroidism 07/04/2019 GERD (gastroesophageal reflux disease) 0 Adjustment disorder with depressed mood 07/04/19 20 documented as of this encounter (statuses as of 04/03/2023) Immunizations Name Administration Dates Next Due COVID-19 mRNA, LNP-s, No Pre serve, 2-Dose Series ([employer]) 05/19/2020 Hepatitis B, 20+ yrs 06/20/2022,08/02/2007 Pneumococcal [...] encounter Miscellaneous Notes * Telephone Encounter - Daisy Garcia LPN - 04/03/2023 8:10 AM EST I called and spoke with Pt to clarify the need for the letter. She states her children don't believe her that her Liver disease is not the cause for her spine infection. She was diagnosed with Liver disease in 2019. She wanted to prove to them that this was not the cause of her infection. Please let me know if you;re willing to do this. I did make Pt aware she could ask her PCP as well. Daisy Garcia LPN Nurse Navigator ID * Telephone Encounter - Christopher Main II, DO - 04/02/2023 12:31 PM EST Hey, Well my first question is why does she need the letter and who is it for? This is also something her PCP can write given her antibiotics where finished in 01/2023. I also don't have any updated labs since she was last seen by ID in the system. And, if mild elevation seen in then was documented prior to starting antibiotics so I would image that it is unrelated to the previous use of Ceftriaxone. Christopher Main II, DO * Telephone Encounter - Nida Dempsey OSA - 03/20/2023 12:55 PM EST Patient is calling and asking if Dr Main can write a letter for her stating that the infection in her spine has nothing to do with her liver disease. Please advise documented in this encounter Plan of Treatment Upcoming Encounters Date Type Department Care Team (Late st Contact Info) Description 04/17/2023 1:00 PM EST Office Visit [facility] [address] [place] [address] Cj Watson MD [address] [place] [address] 05/30/2023 1:00 PM EDT Office Visit Pharmacy, [facility] [address] [place] [address] [facility] [address] [facility] [place] [address] 06/21/2023 10:30 AM EDT Office Visit Gastroenterology, [facility] [address] [facility] [address] [place] [address] May Villalta CRNP [address] [facility] [place] [address] Scheduled Procedures Name Priority Associated Diagnoses Date/Ti me COLONOSCOPY FLEXIBLE PROXIMAL DIAGNOSTIC Recall Screen for colon cancer ESOPHAGOGASTRODUODENOSCOPY ( EGD), FLEXIBLE, TRANSORAL, DIAGNOSTIC Recall Esophageal varices (HCC) Portal hypertensive gastropathy (HCC) Health Maintenance Due Date Last Done Comments HPV/Co-Test 06/24/1995 Pneumococcal Vaccine: Pediatrics (0 to 5 Years) and At-Risk Patients (6 to 64 Years) (2 - PCV) 04/28/2016 04/28/2015 Mammogram 08/05/2022 08/05/2021, 06/01/2020 Hepatitis B (3 of 3 - 19+ 3-dose series) 08/15/2022 06/20/2022, 08/02/2007 COVID-19 Vaccine (3 - 2022-24 season) 2022 06/09/2020, 05/19/2020 Influenza Vaccine (FLU shot) (#1) 2022 11/30/2020, 06/07/2019 TSH 01/02/2023 01/02/2022, 04/05, 05/27/2020, Additional history exists Zoster Vaccines (2 of 2) 03/13/2023 01/16/2023 Depression Screening 06/21/2023 06/20/2022 Cervical Cancer Screening 01/01/2024 Pap Smear 01/01/2024 12/31/2020 COLONOSCOPY-EVERY 3 YRS AGES 18-100 10/04/2025 10/04/2022, 10/04/2022, 04/17/2017 Diabetes Screening 10/25/2025 10/25/2022, 0 05/29/2022, 02/21/2022, Additional history exists Lipid Panel 01/02/2027 01/02/2022 DTaP,Tdap,and Td Vaccines (3 - Td or Tdap) 08/31/2030 08/31/2020, 07/24/2007 Colonoscopy Discontinued 10/04/2022, 08/04/2022, 04/17/2017 Colorectal Cancer Screening Discontinued Cologuard Discontinued Fecal Occult Blood Test Discontinued GARDASIL-HPV IMMUNIZATION SERIES Aged Out No longer eligible based on patient's age to complete this topic MENINGOCOCCAL (MENACTRA/MENVEO) Aged Out No longer eligible based on patient's age to complete this topic Sigmoidoscopy Discontinued documented as of this encounter Medical Devices Not on filedocumented as of this encounter Care Teams Real Estate Assessor Relationship Specialty Start Date End Date Cj Watson MD [address] [place] [address] PCP - General Family Medicine 08/18/19 documented as of this encounter
--- OUTSIDE RECORDS SUMMARY | 2023-08-22 23:37 | External Medical Summary | Summary of Care ---
Author Name Unknown Organization [facility] Address [address] [place] [address] Phone [phone] Care Team Providers Care Felt Dyeing Machine Tender Name Role Phone Loco Watson MD Primary Care Provider [phone] Reason for Visit * Reason Comments eRx-Medication Refill Encounter Details Date Type Department Care Team (Late st Contact Info) Description 02/23/2023 Refill Pharmacy, [facility] [address] [facility] [place] [address] Loco Watson MD [address] [place] [address] Allergies Active Allergy Reactions Criticality Noted Date Comments Sulfa Antibiotics High 05/04/2021 Sulfa's- hives per pt report Tramadol Low 04/27/2021 Other reaction(s): NAUSEA documented as of this encounter (statuses as of 02/23/2023) Medications Medication Sig Dispensed Refills Start Date [...] (Carafate) TWICE A DAY 0 3 Active Spironolactone 25 MG Oral Tablet (Aldactone)Indicat ions:Alcoholic cirrhosis of liver with ascites (HCC) TAKE 2 TABLETS BY MOUTH EVERY MORNING 180 Tablet 3 3 Active Ferrous Sulfate 325 (65 Fe) [...] THE MORNING. 30 Capsule 5 3 Active Folic Acid 1 MG Oral TabletIndications: Uncomplicated alcohol dependence (HCC) TAKE 1 TABLET BY MOUTH ONCE DAILY 90 Tablet 1 3 Active Gabapentin 800 MG Oral Tablet (Neurontin)Indicat ions:Chronic left-sided thoracic back pain TAKE ONE TABLET BY MOUTH IN THE MORNING, ONE TABLET AT NOON AND ONE TABLET BEFORE BEDTIME 270 Tablet 1 3 Active Gabapentin 400 MG Oral Capsule (Neurontin)Indicat ions:Burning pain TAKE 1 CAPSULE BY MOUTH THREE TIMES DAILY EVERY MORNING, AT NOON, AND BEFORE BEDTIME 270 Capsule 1 3 Active Furosemide 40 MG Oral Tablet (Lasix) TAKE 1 TABLET BY MOUTH EVERY MORNING 90 Tablet 1 3 Active Lidocaine 5 % [...] the morning. 90 Tablet 3 3 Active Levothyroxine Sodium 150 MCG Oral Tablet (Levoxyl) TAKE 1 TABLET BY MOUTH EVERY MORNING. AT LEAST 30 MINUTES PRIOR TO BREAKFAST OR OTHER MEDICATIONS 90 Tablet 0 3 Active Levothyroxine Sodium 150 MCG Oral Tablet (Levoxyl) TAKE ONE TABLET BY MOUTH IN THE MORNING AT LEAST 30 MINUTES PRIOR TO BREAKFAST OR OTHER MEDICATIONS 90 Tablet 0 3 023 Discontinued documented as of this encounter (statuses as of 02/23/2023) Active Problems Problem Noted Date Diagnosed Date Pancytopenia 06/05/2022 Alcohol dependence 07/04/2019 Chronic thoracic back pain 07/04/2019 Hypothyroidism 07/04/2019 GERD (gastroesophageal reflux disease) 0 Adjustment disorder with depressed mood 07/04/19 20 documented as of this encounter (statuses as of 02/23/2023) Immunizations Name Administration Dates Next Due COVID-19 mRNA, LNP-s, No Pre serve, 2-Dose Series ([email or web address]) 05/19/2020 Hepatitis B, 20+ yrs 06/20/2022,08/02/2007 Pneumococcal [...] Telephone Encounter - Loco Watson MD - 02/23/2023 5:05 PM ESTSigned Prescriptions: Disp Refills Levothyroxine Sodium 150 MCG Oral Tablet (*90 Tab*0 Sig: TAKE 1 TABLET BY MOUTH EVERY MORNING. AT LEAST 30 MINUTES PRIOR TO BREAKFAST OR OTHER MEDICATIONS Authorizing Provider: LOCO WATSON * Telephone Encounter - Johanna Joy, MED ASSIST - 02/23/2023 3:52 PM EST Pending Prescriptions: Disp Refills Levothyroxine Sodium 150 MCG Oral Tablet [*90 Tab*0 Sig: TAKE 1TABLET BY MOUTH EVERY MORNING. AT LEAST 30 MINUTES PRIOR TO BREAKFAST OR OTHER MEDICATIONS documented in this encounter Plan of Treatment Upcoming Encounters Date Type Department Care Team (Late st Contact Info) Description 04/02/2023 2:00 PM EST [facility] Visit [facility] [address] [facility] [address] Loco Watson MD [address] [facility] [id number] 05/30/2023 1:00 PM EDT Office Visit Pharmacy, [facility] [address] [facility] [place] [address] [facility] [address] [facility] [place] [address] Scheduled Procedures Name Priority Associated Diagnoses Date/Ti me COLONOSCOPY FLEXIBLE PROXIMAL DIAGNOSTIC Recall Screen for colon cancer ESOPHAGOGASTRODUODENOSCOPY ( EGD), FLEXIBLE, TRANSORAL, DIAGNOSTIC Recall Esophageal varices (HCC) Portal hypertensive gastropathy Health Maintenance Due Date Last Done Comments [...] Tdap) 08/31/2030 08/31/2020, 07/24/2007 Colonoscopy Discontinued 10/04/2022, 04/2022, 04/17/2017 Colorectal Cancer Screening Discontinued Cologuard Discontinued Fecal Occult Blood Test Discontinued GARDASIL-HPV IMMUNIZATION SERIES Aged Out No longer eligible based on patient's age to complete this topic MENINGOCOCCAL (MENACTRA/MENVEO) Aged Out No longer eligible based on patient's age to complete this topic Sigmoidoscopy Discontinued documented as of this encounter Medical Devices Not on filedocumented as of this encounter Care Teams Felt Dyeing Machine Tender Relationship Specialty Start Date End Date Loco Watson MD [address] [place] [address] PCP - General Family Medicine 08/18/19 documented as of this encounter
--- OUTSIDE RECORDS SUMMARY | 2023-08-22 23:37 | External Medical Summary | Summary of Care ---
Author Name Unknown Organization [facility] [address] [facility] [address] Phone [phone] Care Team Providers Care Delinquent Tax Collector Assistant Name Role Phone Loco Watson MD Primary Care Provider [phone] Reason for Visit * Reason Comments eRx-Medication Refill Encounter Details Date Type Department Care Team (Late st Contact Info) Description 05/12/2023 Refill [facility] [address] [place] [address] Loco Watson MD [address] [place] [address] Uncomplicated alcohol dependence (HCC) Allergies Active Allergy Reactions Criticality Noted Date Comments Sulfa Antibiotics High 05/04/2021 Sulfa's- hives per pt report Tramadol Low 04/27/2021 Other reaction(s): NAUSEA documented as of this encounter (statuses as of 05/14/2023) Medications Medication Sig Dispensed Refills Start Date [...] OTHER MEDICATIONS 90 Tablet 0 3 Active Folic Acid 1 MG Oral TabletIndications: Uncomplicated alcohol dependence (HCC) TAKE 1 TABLET BY MOUTH ONCE DAILY 90 Tablet 3 4 Active Folic Acid 1 MG Oral TabletIndications: Uncomplicated alcohol dependence (HCC) TAKE 1 TABLET BY MOUTH ONCE DAILY 90 Tablet 1 3 024 Discontinued documented as of this encounter (statuses as of 05/14/2023) Active Problems Problem Noted Date Diagnosed Date Pancytopenia 06/05/2022 Alcohol dependence 07/04/2019 Chronic thoracic back pain 07/04/2019 Hypothyroidism 07/04/2019 GERD (gastroesophageal reflux disease) 0 Adjustment disorder with depressed mood 07/04/19 20 documented as of this encounter (statuses as of 05/14/2023) Immunizations Name Administration Dates Next Due COVID-19 mRNA, LNP-s, No Pre serve, 2-Dose Series (Jajah) 05/19/2020 Hepatitis B, 20+ yrs 06/20/2022,08/02/2007 Pneumococcal [...] encounter Miscellaneous Notes * Telephone Encounter - Donald Ricardo RPh - 05/14/2023 11:15 AM EDT Signed Prescriptions: Disp Refills Folic Acid 1 MG Oral Tablet 90 Tab*3 Sig: TAKE 1 TABLET BY MOUTHONCE DAILYAuthorizing Provider: LOCO WATSON User: DONALD RICARDO documented in this encounter Plan of Treatment Upcoming Encounters Date Type Department Care Team (Late st Contact Info) Description 05/30/2023 1:00 PM EDT [facility] [address] [place] [address] [facility] [address] [place] [address] 06/21/2023 10:30 AM EDT Office Visit Gastroenterology, [facility] [address] [place] [address] May Villalta CRNP [address] [place] [address] Scheduled Procedures Name Priority Associated Diagnoses Date/Ti [...] (3 - 2022- season) 2022 06/09/2020, 05/19/2020 Influenza Vaccine (FLU [...] Tdap) 08/31/2030 08/31/2020, 07/24/2007 Colonoscopy Discontinued 10/04/2022, 080 04/2022, 04/17/2017 Colorectal Cancer Screening Discontinued Cologuard Discontinued Fecal Occult Blood Test Discontinued GARDASIL-HPV IMMUNIZATION SERIES Aged Out No longer eligible based on patient's age to complete this topic MENINGOCOCCAL (MENACTRA/MENVEO) Aged Out No longer eligible based on patient's age to complete this topic Sigmoidoscopy Discontinued documented as of this encounter Medical Devices Not on filedocumented as of this encounter Visit Diagnoses Diagnosis Uncomplicated alcohol dependence (HCC) Other and unspecified alcohol dependence, unspecified drinking behavior documented in this encounter Care Teams Delinquent Tax Collector Assistant Relationship Specialty Start Date End Date Loco Watson MD [address] [place] [address] PCP - General Family Medicine 08/18/19 documented as of this encounter
--- OUTSIDE RECORDS SUMMARY | 2023-08-22 23:37 | External Medical Summary ---
Author Name Unknown Address Unknown Organization K0G:[facility] [address] - [address] [place] [address] Laboratory Report Ordering Provider Test Date Status KATIE NARVAEZ 06/21/2023 11:29:04 Final Observation Date Value Abnormality Reference (Units ) Status BUN 06/21/2023 11:29:04 5 Below low normal 6-20 (mg/dL) Final Creatinine 06/21/2023 11:29:04 0.8 0.5-1.0 (mg/dL) Final Glomerular filtration rate/1.73 sq M.predicted [Volume Rate/Area] in Serum, Plasma or Blood by Creatinine-based formula (CKD-EPI) 06/21/2023 11:29:04 90 >=60 (mL/min) Final eGFR is calculated based on the CKD-EPI 2020 equation Sodium 06/21/2023 11:29:04 132 Below low normal 135 -146 (mmol/L) Final Potassium 06/21/2023 11:29:04 3.5 3.5-5.1 (m mol/L) Final Cl 06/21/2023 11:29:04 91 Below low normal 98- 107 (mmol/L) Final CO2 06/21/2023 11:29:04 29 22-32 (mmo l/L) Final Anion gap 06/21/2023 11:29:04 12 7-15 (mmol /L) Final Glucose 06/21/2023 11:29:04 71 70-120 (mg /dL) Final Albumin 06/21/2023 11:29:04 3.1 Below low normal 3.8 -5.0 (g/dL) Final AST (Aspartate aminotransferase) 06/21/2023 11:29:04 124 Above high normal 10-35 (U/L) Final Alk Phos 06/21/2023 11:29:04 375 Above high normal 35 -130 (U/L) Final Bilirubin, Total 06/21/2023 11:29:04 4.1 Above high no rmal <=1.2 (mg/dL) Final Calcium 06/21/2023 11:29:04 8.6 8.4-10.2 ( mg/dL) Final Protein 06/21/2023 11:29:04 8.6 Above high normal 6. 0-8.3 (g/dL) Final ALT (Alanine aminotransferase) 06/21/2023 11:29:04 31 10-35 (U/L) Petros zavala Performing Location LAB[facility]ATORY [place] [address] - [address] [place] [address]
--- OUTSIDE RECORDS SUMMARY | 2023-08-22 23:37 | External Medical Summary ---
Author Name Unknown Address Unknown Organization [id number] [address] [place] [address] Laboratory Report Ordering Provider Test Date Status KATIE NARVAEZ 06/21/2023 11:29:04 Final Observation Date Value Abnormality Reference (Units ) Status WBC, Total 06/21/2023 11:29:04 3.88 Below low normal 4. 00-10.80 (K/uL) Final RBC 06/21/2023 11:29:04 3.10 3.85-5.15 (M/uL) Final Hemoglobin 06/21/2023 11:29:04 11.5 Below low normal 12 .0-15.3 (g/dL) Final HCT 06/21/2023 11:29:04 32.5 Below low normal 36. 0-45.2 (%) Final MCV 06/21/2023 11:29:04 104.8 81.5-97.5 (fL) Final MCH 06/21/2023 11:29:04 37.1 27.0-34.0 (pg) Final MCHC 06/21/2023 11:29:04 35.4 32.0-36.0 (g/dL) Final RDW 06/21/2023 11:29:04 18.8 11.5-15.5 (%) Final Platelets 06/21/2023 11:29:04 162 140-400 (K /uL) Final MPV 06/21/2023 11:29:04 9.8 6.6-11.1 ( fL) Final Performing Location [facility] - [address] [place] [address]
--- OUTSIDE RECORDS SUMMARY | 2023-08-22 23:37 | External Medical Summary ---
Author Name Unknown Address Unknown Organization [id number]:LABORATORY [facility] - [address] [place] [address] Laboratory Report Ordering Provider Test Date Status KATIE NARVAEZ 06/21/2023 11:29:04 Final Observation Date Value Abnormality Reference (Units ) Status Vitamin B12 06/21/2023 11:29:04 >2000 Above high normal 232-1245 (pg/mL) Final Performing Location [facility] - [address] [place] [address]
--- OUTSIDE RECORDS SUMMARY | 2023-08-22 23:37 | External Medical Summary | Summary of Care ---
Author Name Unknown Organization [facility] Address [address] [place] [address] Phone [phone] Care Team Providers Care Energy Sales Consultant Name Role Phone Loco Watson MD Primary Care Provider [phone] Reason for Visit * Reason Comments eRx-Medication Refill Encounter Details Date Type Department Care Team (Late st Contact Info) Description 05/25/2023 Refill Pharmacy, [facility] [address] [facility] [place] [address] Loco Watson MD [address] [place] [address] Allergies Active Allergy Reactions Criticality Noted Date Comments Sulfa Antibiotics High 05/04/2021 Sulfa's- hives per pt report Tramadol Low 04/27/2021 Other reaction(s): NAUSEA documented as of this encounter (statuses as of 05/29/2023) Medications Medication Sig Dispensed Refills Start Date [...] OTHER MEDICATIONS 90 Tablet 3 4 Active Levothyroxine Sodium 150 MCG Oral Tablet (Levoxyl) TAKE 1 TABLET BY MOUTH EVERY MORNING. AT LEAST 30 MINUTES PRIOR TO BREAKFAST OR OTHER MEDICATIONS 90 Tablet 0 3 024 Discontinued documented as of this encounter (statuses as of 05/29/2023) Active Problems Problem Noted Date Diagnosed Date Pancytopenia 06/05/2022 Alcohol dependence 07/04/2019 Chronic thoracic back pain 07/04/2019 Hypothyroidism 07/04/2019 GERD (gastroesophageal reflux disease) 0 Adjustment disorder with depressed mood 07/04/19 20 documented as of this encounter (statuses as of 05/29/2023) Immunizations Name Administration Dates Next Due COVID-19 mRNA, LNP-s, No Pre serve, 2-Dose Series (BitGo) 05/19/2020 Hepatitis B, 20+ yrs 06/20/2022,08/02/2007 Pneumococcal [...] Telephone Encounter - Loco Watson MD - 05/29/2023 4:55 PM EDTSigned Prescriptions: Disp Refills Levothyroxine Sodium 150 MCG Oral Tablet (*90 Tab*3 Sig: TAKE 1TABLET BY MOUTH EVERY MORNING. AT LEAST 30 MINUTES PRIOR TO BREAKFAST OR OTHER MEDICATIONSAuthorizing Provider: LOCO WATSON * Telephone Encounter - Bambi Winston LPN - 05/29/2023 8:26 AM EDTPending Prescriptions: Disp Refills Levothyroxine Sodium 150 MCG Oral Tablet [*90 Tab*0 Sig: TAKE 1 TABLET BY MOUTH EVERY MORNING. AT LEAST 30 MINUTES PRIOR TO BREAKFAST OR OTHER MEDICATIONS * Telephone Encounter - Bambi Winston LPN - 05/29/2023 8:26 AM EDT Pending Prescriptions: Disp Refills Levothyroxine Sodium 150 MCG Oral Tablet *90 Tab*0 Sig: TAKE 1 TABLET BY MOUTH EVERY MORNING. AT LEAST 30 MINUTES PRIOR TO BREAKFAST OR OTHER MEDICATIONS Last Visit: 11/28/2022 (in office), 02/24/2022 (telemedicine) Next Visit: 05/30/2023 Last date the medication was ordered: 02/23/23 Patient Active Problem List Diagnosis Code Alcohol dependence ([facility]) F10.20 Chronic thoracic back pain M54.6, G89.29 Hypothyroidism E03.9 GERD (gastroesophageal reflux disease) K21.9 Adjustment disorder with depressed mood F43.21 Pancytopenia ([facility]) D61.818 Labs: Lab Results Component Value Date/Time CREATININE - [facility] 0.7 04/03/2023 09:54 AM CREATININE - [facility] 0.7 10/21/2019 04:32 PM CREATININE-OUTSIDE LAB 0.71 07/10/2019 12:00 AM Lab Results Component Value Date/Time POTASSIUM - [facility] 3.5 04/03/2023 09:54 AM POTASSIUM - [facility] 4.5 10/21/2019 04:32 PM POTASSIUM-OUTSIDE LAB 4.4 07/10/2019 12:00 AM Lab Results Component Value Date/Time TSH - [facility] 4.95 (H) 01/02/2022 01:34 PM TSH - [facility] 0.11 (L) 10/08/2019 11:04 AM TSH - OUTSIDE LAB 0.11 (A) 07/10/2019 12:00 AM Lab Results Component Value Date/Time LDL CHOLESTEROL (CALCULATED) - [facility] 114 01/02/2022 01:34 PM Lab Results Component Value Date/Time ALT - [facility] 36 (H) 04/03/2023 09:54 AM ALT - [facility] 23 10/21/2019 04:32 PM Hemoglobin AIC Results: Lab Results Component Value Date/Time HEMOGLOBIN A1C - [facility] 5.1 01/02/2022 01:34 PM * Telephone Encounter - Interface, E-Rx Ss Inbound - 05/27/2023 9:56 PM EDT Pending Prescriptions: Disp Refills Levothyroxine Sodium 150 MCG Oral Tablet [*90 Tab*0 Sig: TAKE 1 TABLET BY MOUTH EVERY MORNING. AT LEAST 30 MINUTES PRIOR TO BREAKFAST OR OTHER MEDICATIONS--------- documented in this encounter Plan of Treatment Upcoming Encounters Date Type Department Care Team (Late st Contact Info) Description 06/12/2023 9:30 AM EDT Office Visit Pharmacy, [facility] [address] [address] [facility] [address] [address] 06/21/2023 10:30 AM EDT Office Visit Gastroenterology, [facility] [address] [address] May Villalta CRNP [address] [place] [address] Scheduled Procedures Name Priority Associated Diagnoses Date/Ti [...] filedocumented as of this encounter Care Teams Energy Sales Consultant Relationship Specialty Start Date End Date Loco Watson MD [address] [place] [address] PCP - General Family Medicine 08/18/19 documented as of this encounter
--- OUTSIDE RECORDS SUMMARY | 2023-08-22 23:37 | External Medical Summary ---
Author Name Unknown Address Unknown Organization K0G:[facility] [address] - [address] [place] [address] Laboratory Report Ordering Provider Test Date Status FABRICIO NARVAEZN 06/21/2023 11:29:04 Final Warfarin Therapy
INR: 2 .0-3.0 conventional anticoagulation
INR: 2.5- 3.5 high intensity anticoagulation Observation Date Value Abnormality Reference (Units ) Status PT 06/21/2023 11:29:04 17.3 Above high normal 11 .6-15.2 (seconds) Final INR 06/21/2023 11:29:04 1.4 Above high normal 0. 8-1.2 Final Performing Location [facility] [address] - [address] [place] [address]
--- OUTSIDE RECORDS SUMMARY | 2023-08-22 23:37 | External Medical Summary ---
Author Name Unknown Address Unknown Organization [id number]:LABORATORY [facility] - [address] [facility] [place] [address] Laboratory Report Ordering Provider Test Date Status CHANTELLE LYNN MIKE 04/03/2023 09:54:27 Final Observation Date Value Abnormality Reference (Units ) Status BUN 04/03/2023 09:54:27 3 Below low normal 6-20 (mg/dL) Final Creatinine 04/03/2023 09:54:27 0.7 0.5-1.0 (mg/dL) Final Glomerular filtration rate/1.73 sq M.predicted [Volume Rate/Area] in Serum, Plasma or Blood by Creatinine-based formula (CKD-EPI) 04/03/2023 09:54:27 >90 >=60 (mL/min) Final eGFR is calculated based on the CKD-EPI 2020 equation SODIUM 04/03/2023 09:54:27 129 Below low normal 135 -146 (mmol/L) Final Potassium 04/03/2023 09:54:27 3.5 3.5-5.1 (m mol/L) Final Cl 04/03/2023 09:54:27 89 Below low normal 98- 107 (mmol/L) Final CO2 04/03/2023 09:54:27 28 22-32 (mmo l/L) Final Anion gap 04/03/2023 09:54:27 12 7-15 (mmol /L) Final Glucose 04/03/2023 09:54:27 109 70-120 (mg /dL) Final Albumin 04/03/2023 09:54:27 4.0 3.8-5.0 (g /dL) Final AST (Aspartate aminotransferase) 04/03/2023 09:54:27 106 Above high normal 10-35 (U/L) Final Alk Phos 04/03/2023 09:54:27 282 Above high normal 35 -130 (U/L) Final Bilirubin, Total 04/03/2023 09:54:27 1.0 <=1 .2 (mg/dL) Final Calcium 04/03/2023 09:54:27 8.7 8.4-10.2 ( mg/dL) Final Protein 04/03/2023 09:54:27 8.2 6.0-8.3 (g /dL) Final ALT (Alanine aminotransferase) 04/03/2023 09:54:27 36 Above high normal 10-35 (U/L) Final Performing Location LABORATORY [facility] - [address] [facility] [address]
--- OUTSIDE RECORDS SUMMARY | 2023-08-22 23:37 | External Medical Summary | Summary of Care ---
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 [address] [place] [address] Cj Watson MD [address] [place] [address] 05/30/2023 1:00 PM EDT Office Visit Pharmacy, [facility] [address] [place] [address] [facility] [address] [facility] [place] [address] 06/21/2023 10:30 AM EDT Office Visit Gastroenterology, [facility] [address] [place] [address] [address] May Villalta CRNP [address] [place] [address] Pending Results Name Type Priority Associated Diagnoses Date /Time CBC WITH WBC DIFFERENTIAL Lab Routine 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) 04/03/2023 9:54 AM EST COMPREHENSIVE METABOLIC PANEL Lab Routine 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) 04/03/2023 9:54 AM EST CRP (INFLAMMATORY MARKER) Lab Routine 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) 04/03/2023 9:54 AM EST CBC Lab Routine 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) 04/03/2023 9:54 AM EST DIFFERENTIAL, AUTOMATED Lab Routine 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
--- OUTSIDE RECORDS SUMMARY | 2023-08-22 23:37 | External Medical Summary ---
Author Name Unknown Address Unknown Organization K01:LABORATORY [facility] - [facility] [address] [facility] [address] Laboratory Report Ordering Provider Test Date Status CHANTELLE LYNN MIKE 04/03/2023 09:54:27 Final Observation Date Value Abnormality Reference (Units ) Status WBC, Total 04/03/2023 09:54:27 2.12 Below low normal 4.00-10.80 (K/uL) Final RBC 04/03/2023 09:54:27 3.87 3.85-5.15 (M/uL) Final Hemoglobin 04/03/2023 09:54:27 13.2 12.0-15.3 (g/dL) Final HCT 04/03/2023 09:54:27 40.8 36.0-45.2 (%) Final MCV 04/03/2023 09:54:27 105.4 81.5-97.5 (fL) Final MCH 04/03/2023 09:54:27 34.1 27.0-34.0 (pg) Final MCHC 04/03/2023 09:54:27 32.4 32.0-36.0 (g/dL) Final RDW 04/03/2023 09:54:27 16.6 11.5-15.5 (%) Final Platelets 04/03/2023 09:54:27 136 Below low normal 140-400 (K/uL) Final MPV 04/03/2023 09:54:27 10.3 6.6-11.1 (fL) Final Nucleated erythrocytes/100 leukocytes [Ratio] in Blood by Automated count 04/03/2023 09:54:27 0 <=0 (/100 WBCs) Final Performing Location LABORATORY [facility] - [facility] [place] [address]
--- OUTSIDE RECORDS SUMMARY | 2023-08-22 23:37 | External Medical Summary ---
Author Name Unknown Address Unknown Organization K01:LABORATORY [facility] - [address] [place] [address] Laboratory Report Ordering Provider Test Date Status CHANTELLE LYNN II 04/03/2023 09:54:27 Final Observation Date Value Abnormality Reference (Units ) Status CRP, low-sensitivity 04/03/2023 09:54:27 <3 <=5 (mg/L) Final Performing Location LAB[facility] - [address] [place] [address]
--- OUTSIDE RECORDS SUMMARY | 2023-08-22 23:37 | External Medical Summary ---
Author Name Unknown Address Unknown Organization K01:[facility] [place] [address] [place] [address] Laboratory Report Ordering Provider Test Date Status FABRICIO NARVAEZN 06/21/2023 11:29:04 Final Observation Date Value Abnormality Reference (Units ) Status Ferritin 06/21/2023 11:29:04 240 Above high normal 13 -150 (ng/mL) Final Postmenopausal women have hi gher ferritin levels than pre-menopausal women. The above reference interval is based on pre-menopausal women. Performing Location [facility] [place] [address] [place] [address]
--- OUTSIDE RECORDS SUMMARY | 2023-08-22 23:37 | External Medical Summary ---
Author Name Unknown Address Unknown Organization K0G:LABORATORY [place] [address] - [address] [place] [address] Laboratory Report Ordering Provider Test Date Status KATIE NARVAEZ 06/21/2023 11:29:04 Final Observation Date Value Abnormality Reference (Units ) Status SYNC LEUKOCYTES IN BLOOD BY AUTOMATED COUNT 06/21/2023 11:29:04 3.88 Below low normal 4.00-10.80 (K/uL) Final Segs 06/21/2023 11:29:04 67.5 40.0-75.0 (%) Final Lymphs % 06/21/2023 11:29:04 20.1 18.0-42.0 (%) Final Monos 06/21/2023 11:29:04 10.3 1.0-11.0 (%) Final Eosinophils 06/21/2023 11:29:04 0.8 0.0-6.0 (%) Final Basos 06/21/2023 11:29:04 1.3 0.0-2.0 (%) Final Absolute Segs 06/21/2023 11:29:04 2.62 1.80-7.70 (K/uL) Final Lymphs, absolute 06/21/2023 11:29:04 0.78 Below low normal 1.00-4.80 (K/ul) Final Monos, Abs 06/21/2023 11:29:04 0.40 0.00-1.10 (K/uL) Final Eos, Abs 06/21/2023 11:29:04 0.03 0.00-0.70 (K/uL) Final Basos, Abs 06/21/2023 11:29:04 0.05 0.00-0.20 (K/uL) Final Performing Location [facility] - [address] [place] [address]
--- OUTSIDE RECORDS SUMMARY | 2023-08-22 23:37 | External Medical Summary ---
Author Name Unknown Address Unknown Organization K01:LABORATORY [facility] - [address] [place] [facility] [place] [address] Laboratory Report Ordering Provider Test Date Status CHANTELLE LYNN II 04/03/2023 09:54:27 Final Observation Date Value Abnormality Reference (Units ) Status SYNC LEUKOCYTES IN BLOOD BY AUTOMATED COUNT 04/03/2023 09:54:27 2.12 Below low normal 4.00-10.80 (K/uL) Final Segs 04/03/2023 09:54:27 46.3 40.0-75.0 (%) Final Lymphs % 04/03/2023 09:54:27 34.4 18.0-42.0 (%) Final Monos 04/03/2023 09:54:27 13.7 Above high normal 1.0-11.0 (%) Final Eosinophils 04/03/2023 09:54:27 4.2 0.0-6.0 (%) Final Basos 04/03/2023 09:54:27 0.9 0.0-2.0 (%) Final Immature Granulocyte, Percent 04/03/2023 09:54:27 0.5 0.0-2.0 (%) Final Absolute Segs 04/03/2023 09:54:27 0.98 Below low normal 1.80-7.70 (K/uL) Final Lymphs, absolute 04/03/2023 09:54:27 0.73 Below low normal 1.00-4.80 (K/ul) Final Monos, Abs 04/03/2023 09:54:27 0.29 0.00-1.10 (K/uL) Final Eos, Abs 04/03/2023 09:54:27 0.09 0.00-0.70 (K/uL) Final Basos, Abs 04/03/2023 09:54:27 0.02 0.00-0.20 (K/uL) Final Immature Granulocytes, Number 04/03/2023 09:54:27 0.01 0.00-0.20 (K/uL) Final Performing Location LABORATORY [facility] [place] - [facility] [place] [address]
--- OUTSIDE RECORDS SUMMARY | 2023-08-22 23:37 | External Medical Summary ---
Author Name Unknown Address Unknown Organization K01:LABORATORY [facility] - [address] [place] [address] Laboratory Report Ordering Provider Test Date Status KATIE NARVAEZ 06/21/2023 11:29:04 Final Observation Date Value Abnormality Reference (Units ) Status Folic Acid 06/21/2023 11:29:04 7.4 >4.5 (ng/ mL) Final Performing Location LAB[facility] - [address] [place] [address]
--- OUTSIDE RECORDS SUMMARY | 2023-08-22 23:37 | External Medical Summary ---
Author Name Unknown Address Unknown Organization K0G:LABORATORY [facility] [address] - [address] [place] [address] Laboratory Report Ordering Provider Test Date Status KATIE NARVAEZ 06/21/2023 11:29:04 Final Observation Date Value Abnormality Reference (Units ) Status Nucleated erythrocytes/100 leukocytes [Ratio] in Blood by Automated count 06/21/2023 11:29:04 Final Performing Location LABORATORY [facility] [address] - [address] [place] [address]
--- OUTSIDE RECORDS SUMMARY | 2023-08-22 23:37 | External Medical Summary ---
Author Name Unknown Address Unknown Organization K01:LABORATORY [facility] [place] - [address] [place] [address] Laboratory Report Ordering Provider Test Date Status KATIE NARVAEZ 06/21/2023 11:29:04 Final Observation Date Value Abnormality Reference (Units ) Status Iron 06/21/2023 11:29:04 116 33-151 (ug/dL) Final Iron-binding capacity 06/21/2023 11:29:04 135 Below low normal 250-425 (ug/dL) Final Transferrin Sat % 06/21/2023 11:29:04 86 Above high normal 15-55 (%) Final Performing Location LABORATORY [facility] - [address] [address]
--- OUTSIDE RECORDS SUMMARY | 2023-08-22 23:37 | External Medical Summary | Summary of Care ---
Author Name Unknown Organization [facility] [address] [facility] [address] Phone [phone] Care Team Providers Care Electrical Prospecting Observer Name Role Phone Loco Watson MD Primary Care Provider [phone] Reason for Visit * Reason Comments eRx-Medication Refill Encounter Details Date Type Department Care Team (Late st Contact Info) Description 05/18/2023 Refill [facility] [address] [place] [address] Loco Watson MD [address] [place] [address] Allergies Active Allergy Reactions Criticality Noted Date Comments Sulfa Antibiotics High 05/04/2021 Sulfa's- hives per pt report Tramadol Low 04/27/2021 Other reaction(s): NAUSEA documented as of this encounter (statuses as of 05/21/2023) Medications Medication Sig Dispensed Refills Start Date [...] EVERY MORNING 90 Tablet 2 4 Active Furosemide 40 MG Oral Tablet (Lasix) TAKE 1 TABLET BY MOUTH EVERY MORNING 90 Tablet 1 3 024 Discontinued documented as of this encounter (statuses as of 05/21/2023) Active Problems Problem Noted Date Diagnosed Date Pancytopenia 06/05/2022 Alcohol dependence 07/04/2019 Chronic thoracic back pain 07/04/2019 Hypothyroidism 07/04/2019 GERD (gastroesophageal reflux disease) 0 Adjustment disorder with depressed mood 07/04/19 20 documented as of this encounter (statuses as of 05/21/2023) Immunizations Name Administration Dates Next Due COVID-19 mRNA, LNP-s, No Pre serve, 2-Dose Series ([employer]) 05/19/2020 Hepatitis B, 20+ yrs 06/20/2022,08/02/2007 Pneumococcal [...] encounter Miscellaneous Notes * Telephone Encounter - Williams [facility] - 05/21/2023 6:51 AM EDTSigned Prescriptions: Disp Refills Furosemide 40 MG Oral Tablet (Lasix) 90 Tab*2 Sig: TAKE 1 TABLET BY MOUTH EVERY MORNING Authorizing Provider: LOCO WATSON Ordering User: WILLIAMS POTTER * Telephone Encounter - Interface, [facility] S[facility] Inbound - 05/20/2023 12:23 PM EDT Pending Prescriptions: Disp Refills Furosemide 40 MG Oral Tablet [Pharmacy Med*90 Tab*0 Sig: TAKE 1TABLET BY MOUTH EVERY MORNING documented in this encounter Plan of Treatment Upcoming Encounters Date Type Department Care Team (Late st Contact Info) Description 05/30/2023 1:00 PM EDT Office Visit Pharmacy, [facility] [address] [place] [address] [facility] [address] [place] [address] 06/21/2023 10:30 AM EDT Office Visit Gastroenterology, [facility] [address] [address] May Villalta CRNP [address] [place] [address] Scheduled Procedures Name Priority Associated Diagnoses Date/Ti [...] filedocumented as of this encounter Care Teams Electrical Prospecting Observer Relationship Specialty Start Date End Date Loco Watson MD [address] [place] [address] PCP - General Family Medicine 08/18/19 documented as of this encounter
--- OUTSIDE RECORDS SUMMARY | 2023-08-22 23:37 | External Medical Summary | Summary of Care ---
Author Name Unknown Organization [facility] Address [address] [place] [place] [address] Phone [phone] Care Team Providers Care Golf Course Designer Name Role Phone Cj Watson MD Primary Care Provider [phone] Reason for Visit * Reason Onset Date Comments Medication Question 02/28/2023 Encounter Details Date Type Department Care Team (Late st Contact Info) Description 02/28/2023 Telephone [facility] [address] [place] [address] Cj Watson MD [address] [place] [address] Medication Question Allergies Active Allergy Reactions Criticality Noted Date Comments Sulfa Antibiotics High 05/04/2021 Sulfa's- hives per pt report Tramadol Low 04/27/2021 Other reaction(s): NAUSEA documented as of this encounter (statuses as of 02/28/2023) Medications Medication Sig Dispensed Refills Start Date [...] as of this encounter (statuses as of 02/28/2023) Active Problems Problem Noted Date Diagnosed Date Pancytopenia 06/05/2022 Alcohol dependence 07/04/2019 Chronic thoracic back pain 07/04/2019 Hypothyroidism 07/04/2019 GERD (gastroesophageal reflux disease) 0 Adjustment disorder with depressed mood 07/04/19 20 documented as of this encounter (statuses as of 02/28/2023) Immunizations Name Administration Dates Next Due COVID-19 mRNA, LNP-s, No Pre serve, 2-Dose Series ([employer]) 05/19/2020 Hepatitis B, 20+ yrs 06/20/2022,08/02/2007 Pneumococcal [...] encounter Miscellaneous Notes * Telephone Encounter - Alka Ozuna CPhT - 02/28/2023 9:54 AM EST Pt calling to request Gabapentin. Informed pt that RX is available at their pharmacy. Pt verbalizedunderstanding and stated they will check with their pharmacy regarding this medication. Thank you, Alka Ozuna CPht Pourer [facility] ([facility]) 02/28/2023, 9:54 AM documented in this encounter Plan of Treatment Upcoming Encounters Date Type Department Care Team (Late st Contact Info) Description 04/02/2023 2:00 PM EST [facility] Visit [facility] [address] [facility] [id number] Cj Watson MD [address] [place] [address] 05/30/2023 1:00 PM EDT Office Visit Pharmacy, [facility] [address] [facility] [place] [address] [facility] [address] [facility] [place] [address] Scheduled Procedures Name Priority Associated Diagnoses Date/Ti [...] filedocumented as of this encounter Care Teams Golf Course Designer Relationship Specialty Start Date End Date Cj Watson MD [address] [place] [facility] [place] [address] PCP - General Family Medicine 08/18/19 documented as of this encounter
--- OUTSIDE RECORDS SUMMARY | 2023-08-22 23:37 | External Medical Summary | Summary of Care ---
Author Name Unknown Organization [facility] Address [address] [facility] [address] Phone [phone] Care Team Providers Care Bruise Trimmer Name Role Phone Loco Watson MD Primary Care Provider [phone] Reason for Visit * Reason Comments eRx-Medication Refill Encounter Details Date Type Department Care Team (Late st Contact Info) Description 05/14/2023 Refill [facility] [address] [place] [address] Loco Watson MD [address] [place] [address] Burning pain Allergies Active Allergy Reactions Criticality Noted Date Comments Sulfa Antibiotics High 05/04/2021 Sulfa's- hives per pt report Tramadol Low 04/27/2021 Other reaction(s): NAUSEA documented as of this encounter (statuses as of 05/16/2023) Medications Medication Sig Dispensed Refills Start Date [...] BEFORE BEDTIME 270 Tablet 1 3 Active Furosemide 40 MG Oral [...] before bedtime 270 Capsule 3 4 Active Gabapentin 400 MG Oral Capsule (Neurontin)Indicat ions:Burning pain TAKE 1 CAPSULE BY MOUTH THREE TIMES DAILY EVERY MORNING, AT NOON, AND BEFORE BEDTIME 270 Capsule 1 3 024 Discontinued documented as of this encounter (statuses as of 05/16/2023) Active Problems Problem Noted Date Diagnosed Date Pancytopenia 06/05/2022 Alcohol dependence 07/04/2019 Chronic thoracic back pain 07/04/2019 Hypothyroidism 07/04/2019 GERD (gastroesophageal reflux disease) 0 Adjustment disorder with depressed mood 07/04/19 20 documented as of this encounter (statuses as of 05/16/2023) Immunizations Name Administration Dates Next Due COVID-19 mRNA, LNP-s, No Pre serve, 2-Dose Series ([employer]) 05/19/2020 Hepatitis B, 20+ yrs 06/20/2022,08/02/2007 Pneumococcal [...] Telephone Encounter - Loco Watson MD - 05/16/2023 1:54 PM EDTSigned Prescriptions: Disp Refills Gabapentin 400 MG Oral Capsule (Neurontin) 270 Ca*3 Sig: TAKE 1 CAPSULE BY MOUTH THREE TIMES DAILY every morning, at noon, and before bedtimeAuthorizing Provider: LOCO WATSON * Telephone Encounter - Essie, [facility] S[facility] Inbound - 05/16/2023 1:41 PM EDT Pending Prescriptions: Disp Refills Gabapentin 400 MG Oral Capsule [Pharmacy M*270 Ca*0 Sig: TAKE 1 CAPSULE BY MOUTH THREE TIMES DAILY EVERY MORNING, AT NOON, AND BEFORE BEDTIME * Telephone Encounter - Moraima Benoit LPN - 05/15/2023 6:54 PM EDTPending Prescriptions: Disp Refills Gabapentin 400 MG Oral Capsule [Pharmacy M*270 Ca*0 Sig: TAKE 1 CAPSULE BY MOUTH THREE TIMES DAILY EVERY MORNING, AT NOON, AND BEFORE BEDTIME * Telephone Encounter - Larissa Burks - 05/15/2023 5:51 PM EDTPending Prescriptions: Disp Refills Gabapentin 400 MG Oral Capsule [Pharmacy M*270 Ca*0 Sig: TAKE 1 CAPSULE BY MOUTH THREE TIMES DAILY EVERY MORNING, AT NOON, AND BEFORE BEDTIME documented in this encounter Plan of Treatment Upcoming Encounters Date Type Department Care Team (Late st Contact Info) Description 05/30/2023 1:00 PM EDT [facility] [place] [address] [facility] [place] [address] 06/21/2023 10:30 AM EDT Office Visit Gastroenterology, [facility] [address] [place] [address] May Villalta CRNP [address] [place] [address] Scheduled Procedures Name Priority Associated Diagnoses Date/Ti [...] as of this encounter Visit Diagnoses Diagnosis Burning pain Generalized pain documented in this encounter Care Teams Bruise Trimmer Relationship Specialty Start Date End Date Looc Watson MD [address] [place] [address] PCP - General Family Medicine 08/18/19 documented as of this encounter
[2023-08-23] MEDS: MAGNESIUM SULFATE / D5W 1 GM/100 ML BAG IV SCH (02:22)
--- NOTE | 2023-08-23 04:50 | Ultrasound Report ---
Exam(s): US OTHER EXAM: US Duplex Arterial/Venous of the Abdomen, Complete CLINICAL HISTORY: Reason for exam: decomp cirrhosis. TECHNIQUE: Real-time duplex ultrasound scan of the abdomen integrating B-mode two- dimensional vascular structure, Doppler spectral analysis and color flow Doppler imaging. COMPARISON: None FINDINGS: Portal veins: Patent portal veins with normal direction of flow. Hepatic artery: Unremarkable. Normal flow on color and spectral Doppler imaging. Hepatic veins: Unremarkable. Normal flow on color and spectral Doppler imaging. Splenic vein: Unremarkable. Normal flow on color and spectral Doppler imaging. Other: Nodular contour of the liver suggestive of cirrhosis. Ascites noted. IMPRESSION: No acute findings in the abdominal vasculature. Cirrhotic liver with ascites. Electronically signed by: Marissa Momin M.D. 08/23/23 04:49 AM
[2023-08-23] MEDS: LEVOTHYROXINE SODIUM 150 MCG TABLET PO SCH (05:56)
[2023-08-23] MEDS: ACETAMINOPHEN 500 MG TAB PO PRN (06:18)
--- NOTE | 2023-08-23 08:01 | Hospitalist Progress Note ---
Date of Service August 23, 2023 Assessment & Plan (1) Decompensated hepatic cirrhosis: (2) Abdominal ascites: (3) Hypokalemia: (4) Chronic hyponatremia: (5) Anemia: (6) Abnormal CT of the abdomen: Plan This is a 58-year-old female who has a significant past medical history of alcoholic cirrhosis, alcohol dependence, esophageal varices, chronic back pain, hypothyroidism, GERD and depression who presents to ER secondary to referral from GI. Alcoholic Cirrhosis - Decompensated Alcohol dependence - previously on naltrexone but stopped in June with relapse, last drink 2 days ago 1 glass of wine Esophageal varices Portal HTN CT abd./pelvis - 1. Thickening of the cecum and proximal colon may represent a nonspecific colitis. 2. Cirrhosis with ascites. Heterogeneous appearance of the liver with irregular contour including a mildly hypoenhancing prominence in the medial aspect of the right lobe. If not previously evaluated, nonemergent MRI can be performed. 3. Additional findings as above. Portal Vein doppler obtained - No acute findings in the abdominal vasculature. continue thiamine, folic acid pt with significant ascities S/p paracentesis in the ED on 08/21 w/ removal of 1700 mL of fluid, no SBP, follow cultx Started rifaximin per GI - outpt GI working on prior auth no encephalopathy Lasix and aldactone held on admission - plan to resume prior to discharge Will give IV lasix now daily weights, low sodium diet, fluid restriction Hypokalemia likely in setting of diuretic use replete and monitor Chronic hyponatremia in setting of alcohol use, current fluid overload sodium 131, monitor Anemia anemia w/u hgb 9.5, iron panel, b12, folic acid and hemolysis work up given indirect bili > direct no signs of bleeding Last EGD 06/2624 grade 1 PHG last C scope 10/2022 PHC and hemorrhoids ? colitis on imaging CT a/p shows thickening of cecum concerning for possible colitis ; however pt does not have diarrhea monitor, may be portal colopathy GI consulted, as above Chronic Back pain continue gabapentin Alcohol dependence recently stopped naltrexone in June recommend cessation and consider restart naltrexone Abnormal imaging/incidental findings Cirrhosis with ascites. Heterogeneous appearance of the liver with irregular contour including a mildly hypoenhancing prominence in the medial aspect of the right lobe. If not previously evaluated, nonemergent MRI can be performed. Avascular necrosis of the bilateral femoral heads again noted. - Will need orthopedic f/u at discharge Atherosclerotic calcifications are seen. - will need atherosclerosis w/u at discharge DVT ppx: SCDS for now in setting of known varices and anemia FULL CODE PCP: Dr. Watson Admission and Anticipated Discharge Date Admission Date: August 22, 2023 Subjective Pt seen in follow up of decompensated cirrhosis Admitted yesterday, underwent paracentesis by ED provider, 1700 mL of fluid removed Sent from outpt GI clinic -> GI inpt consulted Started rifaximin yesterday UA concerning for UTI - starting Rocephin Currently laying in bed in NAD, reports feeling better than yesterday Denies any fever, chills, chest pain, shortness of breath. Denies abd. pain. Had a BM. Review of Systems Review of Systems: All systems reviewed & are unremarkable except as noted in Subjective Physical Exam Physical Exam: General Appearance: Moderately built and nourished, in NAD Head: normocephalic, Atraumatic Eyes: normal inspection, EOMI, +Icteric Neck: supple Respiratory/Chest: Normal breath sounds, CTA, No accessory muscle use Cardiovascular: S1, S2, No murmur Abdomen/GI: distended, Non tender, soft, Bowel sounds present Extremities/Musculoskeletal: normal inspection, + LE edema Neurologic/Psych: AAOX3, answers appropriately, speech fluent, moves extremities Skin: normal color, warm, +Jaundice Results & Data Results & Data Vital Signs (Past 12 Hours) Vital Signs Temp Pulse Pulse Resp BP Pulse Ox O2 Del Method 08/23/23 07:53 36.7 C 81 16 99/70 L 100 Room Air 08/23/23 02:06 37.3 C 84 18 96/65 L 93 Room Air 08/23/23 00:27 81 08/22/23 22:44 37 C 80 16 102/67 97 Room Air 08/22/23 21:27 Room Air Laboratory Results 08/23/23 08/22/23 08/22/23 Range/Units 07:51 Unknown 19:31 WBC 4.00 L (4.8-10.8) K/ul RBC 2.53 L (4.20-5.40) M/uL Hgb 9.0 L (12.0-16.0) g/dl Hct 26.6 L (37.0-47.0) % MCV 105.1 H (80.0-100.0) fL MCH 35.6 H (25.0-34.0) pg MCHC 33.8 (32.0-36.0) g/dL RDW Std Deviation 49.0 H (36.4-46.3) fL RDW Coeff of Citlaly 12.8 (11.5-14.5) % Plt Count 171 (130-400) K/uL MPV 10.3 (9.4-12.4) fL Immature Gran % (Auto) 0.3 % Neut % (Auto) 64.7 % Lymph % (Auto) 23.5 % [place] % (Auto) 8.5 % Eos % (Auto) 2.0 % Baso % (Auto) 1.0 % Reticulocyte % (Auto) 2.19 H (0.50-2.00) % Neut # (Auto) 2.59 (1.40-6.50) K/uL Lymph # (Auto) 0.94 L (1.20-3.40) K/uL [place] # (Auto) 0.34 (0.11-0.59) K/uL Eos # (Auto) 0.08 (0.00-0.50) K/uL Baso # (Auto) 0.04 (0.00-0.20) K/uL Reticulocyte # 0.060 (0.020-0.100) 10^6/uL Immature Gran # (Auto) 0.01 (0.01-0.20) K/uL Haptoglobin Pending Sodium 133 L (136-145) mmol/L Potassium 3.5 3.0 L (3.5-5.1) mmol/L Chloride 98 (98-107) mmol/L Carbon Dioxide 30 (21-32) mmol/L Anion Gap 5 (3-11) BUN 3 L (6-23) mg/dl Creatinine 0.57 L (0.6-1.2) mg/dl Est Cr Clr Drug Dosing 96.8 ml/min Est GFR ( Amer) 118.4 ml/min Est GFR (Non-Af Amer) 102.2 ml/min BUN/Creatinine Ratio 5.3 L (10-20) Glucose 86 (70-99(Fasting)) mg/dl Calcium 7.7 L (8.6-10.3) mg/dl Magnesium 2.4 1.7 (1.7-2.4) mg/dl Iron 74 (35-150) mcg/dl TIBC TNP Unsaturated IBC < 55 L (155-355) mcg/dl Transferrin % Sat TNP Ferritin 103.0 (8-388) ng/ml Total Bilirubin 3.2 H (0.2-1.0) mg/dl AST 51 H (13-39) U/L ALT 15 (7-52) U/L Alkaline Phosphatase 89 (34-104) U/L Lactate Dehydrogenase 195 (86-244) U/L Total Protein 6.6 (6.0-8.3) gm/dl Albumin 2.4 L (3.4-5.0) gm/dl Globulin 4.2 H (2.5-4.0) gm/dl Albumin/Globulin Ratio 0.6 L (0.9-2) Vitamin B12 Pending Folate Pending Urine Color Dark Yellow Urine Appearance Cloudy A (Clear) Urine pH 6.5 (4.5-7.5) Ur Specific [place] 1.042 H (1.000-1.030) Urine Protein Negative (Negative) Urine Glucose (UA) Negative (Negative) Urine Ketones Trace H (Negative) Urine Blood Negative (Negative) Urine Nitrite Positive A (Negative) Urine Bilirubin 1+ H (Negative) Urine Urobilinogen Positive H (Negative) Ur Leukocyte Esterase 2+ H (Negative) Urine WBC (Auto) >50 H (0-5) /hpf Urine RBC (Auto) 0-2 (0-2) /hpf U Hyaline Cast (Auto) 3-5 H (0-2) /lpf U Epithel Cells (Auto) 0-2 (0-2) /hpf Urine Bacteria (Auto) 4+ H (None Seen) Fluid Neutrophils % % Fluid Lymphocytes % % Fluid Meso/Macro/[place] % % Fluid Comment Peritoneal Color Peritoneal Appearance Peritoneal WBC (Auto) (0-300) /ul Peritoneal RBC (Auto) /uL Peritoneal Tot Protein gm/dl Peritoneal Albumin gm/dl Urine Opiates Screen Neg (Neg) Ur Methadone, Qual Neg (Neg) Urine Fentanyl Screen Neg (Neg) Urine Barbiturates Neg (Neg) Ur Phencyclidine (PCP) Neg (Neg) U Amphetamin/Meth Scrn Neg (Neg) Urine MDEA Pending MDMA (Ecstasy) Screen Pos H (Neg) MDMA Pending Urine MDMA Pending U Benzodiazepines Scrn Neg (Neg) Ur Cocaine Metabolite Neg (Neg) U Marijuana (THC) Screen Neg (Neg) 08/22/23 Range/Units 16:50 WBC (4.8-10.8) K/ul RBC (4.20-5.40) M/uL Hgb (12.0-16.0) g/dl Hct (37.0-47.0) % MCV (80.0-100.0) fL MCH (25.0-34.0) pg MCHC (32.0-36.0) g/dL RDW Std Deviation (36.4-46.3) fL RDW Coeff of Citlaly (11.5-14.5) % Plt Count (130-400) K/uL MPV (9.4-12.4) fL Immature Gran % (Auto) % Neut % (Auto) % Lymph % (Auto) % [place] % (Auto) % Eos % (Auto) % Baso % (Auto) % Reticulocyte % (Auto) (0.50-2.00) % Neut # (Auto) (1.40-6.50) K/uL Lymph # (Auto) (1.20-3.40) K/uL [place] # (Auto) (0.11-0.59) K/uL Eos # (Auto) (0.00-0.50) K/uL Baso # (Auto) (0.00-0.20) K/uL Reticulocyte # (0.020-0.100) 10^6/uL Immature Gran # (Auto) (0.01-0.20) K/uL Haptoglobin Sodium (136-145) mmol/L Potassium (3.5-5.1) mmol/L Chloride (98-107) mmol/L Carbon Dioxide (21-32) mmol/L Anion Gap (3-11) BUN (6-23) mg/dl Creatinine (0.6-1.2) mg/dl Est Cr Clr Drug Dosing ml/min Est GFR ( Amer) ml/min Est GFR (Non-Af Amer) ml/min BUN/Creatinine Ratio (10-20) Glucose (70-99(Fasting)) mg/dl Calcium (8.6-10.3) mg/dl Magnesium (1.7-2.4) mg/dl Iron (35-150) mcg/dl TIBC Unsaturated IBC (155-355) mcg/dl Transferrin % Sat Ferritin (8-388) ng/ml Total Bilirubin (0.2-1.0) mg/dl AST (13-39) U/L ALT (7-52) U/L Alkaline Phosphatase (34-104) U/L Lactate Dehydrogenase (86-244) U/L Total Protein (6.0-8.3) gm/dl Albumin (3.4-5.0) gm/dl Globulin (2.5-4.0) gm/dl Albumin/Globulin Ratio (0.9-2) Vitamin B12 Folate Urine Color Urine Appearance (Clear) Urine pH (4.5-7.5) Ur Specific [place] (1.000-1.030) Urine Protein (Negative) Urine Glucose (UA) (Negative) Urine Ketones (Negative) Urine Blood (Negative) Urine Nitrite (Negative) Urine Bilirubin (Negative) Urine Urobilinogen (Negative) Ur Leukocyte Esterase (Negative) Urine WBC (Auto) (0-5) /hpf Urine RBC (Auto) (0-2) /hpf U Hyaline Cast (Auto) (0-2) /lpf U Epithel Cells (Auto) (0-2) /hpf Urine Bacteria (Auto) (None Seen) Fluid Neutrophils % 7 % Fluid Lymphocytes % 37 % Fluid Meso/Macro/[place] % 56 % Fluid Comment Peritoneal Color Yellow Peritoneal Appearance Slightly Hazy Peritoneal WBC (Auto) 235 (0-300) /ul Peritoneal RBC (Auto) < 2000 /uL Peritoneal Tot Protein < 3.0 gm/dl Peritoneal Albumin < 1.5 gm/dl Urine Opiates Screen (Neg) Ur Methadone, Qual (Neg) Urine Fentanyl Screen (Neg) Urine Barbiturates (Neg) Ur Phencyclidine (PCP) (Neg) U Amphetamin/Meth Scrn (Neg) Urine MDEA MDMA (Ecstasy) Screen (Neg) MDMA Urine MDMA U Benzodiazepines Scrn (Neg) Ur Cocaine Metabolite (Neg) U Marijuana (THC) Screen (Neg) Medications Administered Current Inpatient Medications Acetaminophen (Acetaminophen 500 Mg Tab) 500 mg PO Q6H PRN PRN Reason: pain Stop: 09/21/23 19:08 Last Admin: 08/23/23 06:18 Dose: 500 mg Al Hydrox/Mg Hydrox/Simethicone (Aluminum/Magnesium Susp 30 Ml Udc) 15 ml PO Q4H PRN PRN Reason: Dyspepsia Stop: 09/21/23 19:08 Bupropion HCl (Bupropion Xl 150 Mg Tabcr) 150 mg PO DAILY [facility] Stop: 09/22/23 08:59 Cyanocobalamin (Cyanocobalamin (B-12) 500 Mcg Tablet) 1,000 mcg PO QAM [facility] Stop: 09/22/23 08:59 Ferrous Sulfate (Ferrous Sulfate 325 Mg Tab) 325 mg PO DAILY MEKA Stop: 09/22/23 08:59 Folic Acid (Folic Acid 1 Mg Tab) 1 mg PO QAM [facility] Stop: 09/22/23 08:59 Gabapentin (Gabapentin 800 Mg Tab) 800 mg PO TID [facility] Stop: 09/21/23 20:59 Last Admin: 08/22/23 21:17 Dose: 800 mg Gabapentin (Gabapentin 400 Mg Cap) 400 mg PO TID [facility] Stop: 09/21/23 20:59 Last Admin: 08/22/23 21:18 Dose: 400 mg Hydroxyzine HCl (Hydroxyzine Hcl 10 Mg Tab) 10 mg PO HS PRN PRN Reason: Insomnia Stop: 09/21/23 20:01 Last Admin: 08/22/23 22:15 Dose: 10 mg Promethazine HCl 12.5 mg/ (Sodium Chloride) 50.5 mls @ 202 mls/hr IV Q6H PRN PRN Reason: Nausea And Vomiting Stop: 09/21/23 19:08 Ceftriaxone Sodium (Rocephin) 2,000 mg in 50 mls @ 100 mls/hr IV Q24H [facility] Stop: 09/02/23 07:59 Levothyroxine Sodium (Levothyroxine Sodium 150 Mcg Tablet) 150 mcg PO DAILYBB [facility] Stop: 09/22/23 06:29 Last Admin: 08/23/23 05:56 Dose: 150 mcg Magnesium Hydroxide (Magnesium Hydroxide Susp 30 Ml Udc) 30 ml PO Q12H PRN PRN Reason: Constipation Stop: 09/21/23 19:08 Last Admin: 08/22/23 21:16 Dose: 30 ml Magnesium Oxide (Magnesium Oxide 400 Mg Tab) 400 mg PO BID [facility] Stop: 09/21/23 20:59 Last Admin: 08/22/23 21:17 Dose: 400 mg Pantoprazole Sodium (Pantoprazole 40 Mg Tab) 40 mg PO BID MEKA Stop: 09/21/23 20:59 Last Admin: 08/22/23 21:16 Dose: 40 mg Polyethylene Glycol (Polyethylene (Miralax) 17 Gm Pack) 17 gm PO DAILY PRN PRN Reason: Constipation Stop: 09/21/23 19:08 Polyethylene Glycol (Polyethylene (Miralax) 17 Gm Pack) 17 gm PO DAILY MEKA Stop: 09/22/23 08:59 Potassium Chloride (Potassium Chloride Crtab 20 Meq Tabcr) 40 meq PO ONE ONE Stop: 08/23/23 22:21 Rifaximin (Rifaximin 550 Mg Tablet) 550 mg PO BID MEKA Stop: 09/21/23 20:59 Last Admin: 08/22/23 21:17 Dose: 550 mg Thiamine HCl (Thiamine Hcl 100 Mg Tab) 100 mg PO QAM [facility] Stop: 09/22/23 08:59
[2023-08-23 08:17] LABS: Basophils # (auto) 0.04 K/uL (0.00-0.20); Eosinophils # (auto) 0.08 K/uL (0.00-0.50); Hematocrit (blood only) 26.6 % (37.0-47.0); Immature Granulocytes # (auto) 0.01 K/uL (0.01-0.20); Immature Granulocytes % (auto) 0.3 %; Lymphocytes # (auto) 0.94 K/uL (1.20-3.40); Lymphocytes % (auto) 23.5 %; Mean Corpuscular Hemoglobin 35.6 pg (25.0-34.0); Mean Corpuscular Hgb Conc 33.8 g/dL (32.0-36.0); Mean Corpuscular Volume 105.1 fL (80.0-100.0); Mean Platelet Volume 10.3 fL (9.4-12.4); Monocytes # (auto) 0.34 K/uL (0.11-0.59); Monocytes % (auto) 8.5 %; Neutrophils # (auto) 2.59 K/uL (1.40-6.50); Neutrophils % (auto) 64.7 %; Platelet Count 171 K/uL (130-400); RDW Coefficient of Variation 12.8 % (11.5-14.5); Red Blood Count 2.53 M/uL (4.20-5.40); Reticulocyte % 2.19 % (0.50-2.00)
[2023-08-23 08:30] LABS: Iron 74 mcg/dl (35-150); Unsaturated Iron Binding Cap < 55 mcg/dl (155-355)
[2023-08-23] MEDS: FERROUS SULFATE 325 MG TAB PO SCH (08:37)
[2023-08-23] MEDS: CYANOCOBALAMIN (B-12) 500 MCG TABLET PO SCH (08:37)
[2023-08-23] MEDS: THIAMINE HCL 100 MG TAB PO SCH (08:37)
[2023-08-23] MEDS: buPROPion XL 150 MG TABCR PO SCH (08:37)
[2023-08-23] MEDS: POLYETHYLENE (MIRALAX) 17 GM PACK PO SCH (08:37)
[2023-08-23] MEDS: FOLIC ACID 1 MG TAB PO SCH (08:37)
[2023-08-23] MEDS: cefTRIAXone SODIUM 2,000 MG/50 ML BAG IV SCH (08:53)
--- NOTE | 2023-08-23 09:20 | Gastrointestinal Consultation ---
Date of Consultation August 23, 2023 Assessment & Plan (1) Alcoholic cirrhosis of liver with ascites: 58 year old female, with history of chronic back pain, hypothyroidism, GERD, depression, ETOH abuse, decompensated cirrhosis w ascites, varices, MELD 20, DF 18 admitted with volume overload and electrolyte abnormalities. S/P paracentesis yesterday without evidence of SBP, AM labs pending - Follow culture - May hold lactulose per primary GI request - Start Xifaxan 550 BID, appears they are working on an outpatient auth - Appreciate e-lyte replacement management - Resume Lasix/Aldactone prior to discharge and evaluate e-lyte response - MELD labs every 6 months - ABD imaging w/ AFP every 6 months - EGD every 1-2 years - No ETOH - No NSAIDs - Avoid hepatotoxin - Low NA diet, less than 2G daily - Less than 2G acetaminophen containing products daily - OP colonoscopy recommended given imaging w/ colitis - OP MRI liver recommended to follow up hypodensity - ED for emergencies - Please call with any questions or concerns Thank you for allowing us to participate in the care of this patient. Please call with any acute changes, questions or concerns. Please see addendum below with additional recommendation from my supervising physician. I spent a total of 80 minutes on the date of service in review of patient's record, and previously obtained information in person and appropriate medical visit, discussion and education of plan, with patient and/or caregiver, placing orders for tests/referral/procedures as medically necessary and documentation of pertinent clinical information in patient's medical records for their visit today. Supervising Physician Co-Signing Physician Notes I examined the patient and reviewed patient's chart , laboratory data and imaging studies. I agree with with assessment and plan of care as suggested by advanced practice provider. Worsening Ascites possibly related to progression of liver disease secondary to alcohol. The patient will follow-up with [facility]. History of Present Illness Reason for Consultation: cirrhosis Requesting Physician: Mohit Attending Physician: Venkat Rueda MD History of Present Illness 58 year old female, with history of chronic back pain, hypothyroidism, GERD, depression, ETOH abuse, decompensated cirrhosis w ascites, grade I varices w red federico sign (banded 05/2022), hyponatremia and elevated LFTs w/ ongoing ETOH use to help her sleep who is admitted through the ED for volume overload, electroyltes abnormalities. Pt was seen and evaluated, chart reviewed. Notes this AM she feels okay. No abd pain s/p paracentesis. No nausea, vomiting. Eating breakfast now but not very hungry. Denies GERD or dysphagia. Notes her lactulose is on hold. Moving bowels. No black or bloody stools. No fever, chills, CP, SOB. Diagnosis: ETOH cirrhosis w/ ongoing ETOH use, MELD 20 Decompensations Varices: banded, egd 2023 w/ grade 1 varices Ascites: s/p para 08/22/23 without SBP HE: lactulose on hold, xifaxan authorization pending as OP HCC: CT 2023 w/ irregular contour including a mildly hypoenhancing prominence in the medial aspect of the right lobe. If not previously evaluated, nonemergent MRI can be performed Screenings MELD 20 Maddrey DF 18 HCC: will need OP MRI by her regular GI team to follow up abnormal CT Varices: yearly EGD Hepatic Duplex 2023: No acute findings in the abdominal vasculature. Cirrhotic liver with ascites. CTAP 2023: Thickening of the cecum and proximal colon may represent a nonspecific colitis. Cirrhosis with ascites. Heterogeneous appearance of the liver with irregular contour including a mildly hypoenhancing prominence in the medial aspect of the right lobe. If not previously evaluated, nonemergent MRI can be performed. Allergies Allergy/AdvReac Type Severity Reaction Status Date / Time Sulfa (Sulfonamide Allergy Intermediate Rash Verified 12/08/22 17:50 Antibiotics) tramadol AdvReac Mild NAUSEA Verified 12/08/22 17:50 Home Medications Medication Instructions Recorded Confirmed Type cholecalciferol (vitamin D3) 25 1,000 unit PO WE 10/30/18 08/22/23 History mcg (1,000 unit) capsule (Vitamin D3) cyanocobalamin (vitamin B-12) 1,000 mcg PO QAM 10/30/18 08/22/23 History 1,000 mcg tablet (Vitamin B-12) folic acid 1 mg tablet 1 mg PO QAM #30 tabs 06/10/19 08/22/23 Rx bupropion HCl 150 mg 24 hr tablet, 150 mg PO DAILY 08/19/19 08/22/23 History extended release gabapentin 800 mg tablet 800 mg PO TID 01/12/20 08/22/23 History levothyroxine 150 mcg tablet 150 mcg PO DAILYBB #30 tabs 04/30/21 08/22/23 Rx (Synthroid) magnesium oxide 400 mg (241.3 mg 400 mg PO BID #30 tabs 04/30/21 08/22/23 Rx magnesium) tablet spironolactone 25 mg tablet 50 mg (2 x 25 mg) PO QAM #60 tabs 04/30/21 08/22/23 Rx furosemide 40 mg tablet 40 mg PO DAILY 05/30/22 08/22/23 History lactulose 10 gram/15 mL oral 15 ml PO TID PRN Constipation 05/30/22 08/22/23 History solution omeprazole 40 mg capsule,delayed 40 mg PO BID #60 caps 06/02/22 08/22/23 Rx release ferrous sulfate 325 mg (65 mg 325 mg PO DAILY 12/08/22 08/22/23 History iron) tablet (FeroSul) lidocaine 5 % topical patch 1 patch transdermal Q24H #30 ea 12/20/22 08/22/23 Rx thiamine HCl (vitamin B1) 100 mg 100 mg PO QAM #30 tabs 12/20/22 08/22/23 Rx tablet gabapentin 400 mg capsule 400 mg PO TID 08/22/23 08/22/23 History Patient History Medical History Bronchitis C. difficile diarrhea Ovarian cyst Papilloma of breast Acute alcoholic hepatitis Acetaminophen overdose Lactic acidosis Acute alteration in mental status Hepatorenal failure Hallucinations Acute hyponatremia Pancreatitis HTN (hypertension) Bowel wall thickening Surgical History History of tooth extraction History of bilateral tubal ligation History of section x 3 History of breast biopsy Lt History of esophagogastroduodenoscopy (EGD) History of colonoscopy Family History Mother Diabetes Grandmother (Maternal) Diabetes Uncle Diabetes Other Heart disease Hypertension Social History Smoking Status: Never smoker Second Hand Exposure: No; Do You Dip or Chew Tobacco: No; Hx Alcohol Use: Yes Alcohol type: wine Hx Substance Use: No Preferred Language: Lao Communication Ability: Effective Lead Software Developer Required: No Beliefs That Will Affect Care: None marital status: Life Partner Current Living Situation: Spouse Current Living Situation Comment: [facility] [place] current occupational status: employed and 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 Physical Exam Constitutional: WD/WN, vitals as above Respiratory: normal respiratory effort, lungs clear to auscultation Cardiovascular: Rate/Rhythm: regular rate and regular rhythm Gastrointestinal (Abdomen): normal bowel sounds, soft, nontender, no hepatosplenomegaly Skin: no rashes, warm and dry Results & Data Vital Signs (Past 12 Hours) Vital Signs Temp Pulse Pulse Resp BP Pulse Ox O2 Del Method 08/23/23 09:10 79 08/23/23 07:53 36.7 C 81 16 99/70 L 100 Room Air 08/23/23 02:06 37.3 C 84 18 96/65 L 93 Room Air 08/23/23 00:27 81 08/22/23 22:44 37 C 80 16 102/67 97 Room Air 08/22/23 21:27 Room Air Laboratory Results 08/23/23 08/22/23 08/22/23 Range/Units 07:51 Unknown 19:31 WBC 4.00 L (4.8-10.8) K/ul RBC 2.53 L (4.20-5.40) M/uL Hgb 9.0 L (12.0-16.0) g/dl Hct 26.6 L (37.0-47.0) % MCV 105.1 H (80.0-100.0) fL MCH 35.6 H (25.0-34.0) pg MCHC 33.8 (32.0-36.0) g/dL RDW Std Deviation 49.0 H (36.4-46.3) fL RDW Coeff of Citlaly 12.8 (11.5-14.5) % Plt Count 171 (130-400) K/uL MPV 10.3 (9.4-12.4) fL Immature Gran % (Auto) 0.3 % Neut % (Auto) 64.7 % Lymph % (Auto) 23.5 % [place] % (Auto) 8.5 % Eos % (Auto) 2.0 % Baso % (Auto) 1.0 % Reticulocyte % (Auto) 2.19 H (0.50-2.00) % Neut # (Auto) 2.59 (1.40-6.50) K/uL Lymph # (Auto) 0.94 L (1.20-3.40) K/uL [place] # (Auto) 0.34 (0.11-0.59) K/uL Eos # (Auto) 0.08 (0.00-0.50) K/uL Baso # (Auto) 0.04 (0.00-0.20) K/uL Reticulocyte # 0.060 (0.020-0.100) 10^6/uL Immature Gran # (Auto) 0.01 (0.01-0.20) K/uL Haptoglobin Pending PT (9.0-12.0) Seconds INR (0.9-1.1) Sodium Pending (136-145) mmol/L Potassium Pending 3.0 L (3.5-5.1) mmol/L Chloride Pending (98-107) mmol/L Carbon Dioxide Pending (21-32) mmol/L Anion Gap Pending (3-11) BUN Pending (6-23) mg/dl Creatinine Pending (0.6-1.2) mg/dl Est Cr Clr Drug Dosing Pending ml/min Est GFR ( Amer) Pending ml/min Est GFR (Non-Af Amer) Pending ml/min BUN/Creatinine Ratio Pending (10-20) Glucose Pending (70-99(Fasting)) mg/dl Lactate (0.4-2.0) mmol/L Calcium Pending (8.6-10.3) mg/dl Magnesium Pending 1.7 (1.7-2.4) mg/dl Iron 74 (35-150) mcg/dl TIBC TNP Unsaturated IBC < 55 L (155-355) mcg/dl Transferrin % Sat TNP Ferritin Pending Total Bilirubin Pending (0.2-1.0) mg/dl Direct Bilirubin (0-0.2) mg/dl AST Pending (13-39) U/L ALT Pending (7-52) U/L Alkaline Phosphatase Pending (34-104) U/L Ammonia (18-72) umol/L Lactate Dehydrogenase 195 (86-244) U/L Troponin I High Sens (0-14) pg/ml Total Protein Pending (6.0-8.3) gm/dl Albumin Pending (3.4-5.0) gm/dl Globulin Pending (2.5-4.0) gm/dl Albumin/Globulin Ratio Pending (0.9-2) Lipase (11-82) U/L Vitamin B12 Pending Folate Pending Procalcitonin (0-0.5) ng/ml Urine Color Dark Yellow Urine Appearance Cloudy A (Clear) Urine pH 6.5 (4.5-7.5) Ur Specific [place] 1.042 H (1.000-1.030) Urine Protein Negative (Negative) Urine Glucose (UA) Negative (Negative) Urine Ketones Trace H (Negative) Urine Blood Negative (Negative) Urine Nitrite Positive A (Negative) Urine Bilirubin 1+ H (Negative) Urine Urobilinogen Positive H (Negative) Ur Leukocyte Esterase 2+ H (Negative) Urine WBC (Auto) >50 H (0-5) /hpf Urine RBC (Auto) 0-2 (0-2) /hpf U Hyaline Cast (Auto) 3-5 H (0-2) /lpf U Epithel Cells (Auto) 0-2 (0-2) /hpf Urine Bacteria (Auto) 4+ H (None Seen) Fluid Neutrophils % % Fluid Lymphocytes % % Fluid Meso/Macro/[place] % % Fluid Comment Peritoneal Color Peritoneal Appearance Peritoneal WBC (Auto) (0-300) /ul Peritoneal RBC (Auto) /uL Peritoneal Tot Protein gm/dl Peritoneal Albumin gm/dl Urine Opiates Screen Neg (Neg) Ur Methadone, Qual Neg (Neg) Urine Fentanyl Screen Neg (Neg) Urine Barbiturates Neg (Neg) Ur Phencyclidine (PCP) Neg (Neg) U Amphetamin/Meth Scrn Neg (Neg) Urine MDEA Pending MDMA (Ecstasy) Screen Pos H (Neg) MDMA Pending Urine MDMA Pending U Benzodiazepines Scrn Neg (Neg) Ur Cocaine Metabolite Neg (Neg) U Marijuana (THC) Screen Neg (Neg) Ethyl Alcohol mg/dL (<10.0) mg/dl 08/22/23 08/22/23 08/22/23 Range/Units 16:50 15:08 14:44 WBC (4.8-10.8) K/ul RBC (4.20-5.40) M/uL Hgb (12.0-16.0) g/dl Hct (37.0-47.0) % MCV (80.0-100.0) fL MCH (25.0-34.0) pg MCHC (32.0-36.0) g/dL RDW Std Deviation (36.4-46.3) fL RDW Coeff of Citlaly (11.5-14.5) % Plt Count (130-400) K/uL MPV (9.4-12.4) fL Immature Gran % (Auto) % Neut % (Auto) % Lymph % (Auto) % [place] % (Auto) % Eos % (Auto) % Baso % (Auto) % Reticulocyte % (Auto) (0.50-2.00) % Neut # (Auto) (1.40-6.50) K/uL Lymph # (Auto) (1.20-3.40) K/uL [place] # (Auto) (0.11-0.59) K/uL Eos # (Auto) (0.00-0.50) K/uL Baso # (Auto) (0.00-0.20) K/uL Reticulocyte # (0.020-0.100) 10^6/uL Immature Gran # (Auto) (0.01-0.20) K/uL Haptoglobin PT (9.0-12.0) Seconds INR (0.9-1.1) Sodium (136-145) mmol/L Potassium (3.5-5.1) mmol/L Chloride (98-107) mmol/L Carbon Dioxide (21-32) mmol/L Anion Gap (3-11) BUN (6-23) mg/dl Creatinine (0.6-1.2) mg/dl Est Cr Clr Drug Dosing ml/min Est GFR ( Amer) ml/min Est GFR (Non-Af Amer) ml/min BUN/Creatinine Ratio (10-20) Glucose (70-99(Fasting)) mg/dl Lactate 1.4 (0.4-2.0) mmol/L Calcium (8.6-10.3) mg/dl Magnesium (1.7-2.4) mg/dl Iron (35-150) mcg/dl TIBC Unsaturated IBC (155-355) mcg/dl Transferrin % Sat Ferritin Total Bilirubin (0.2-1.0) mg/dl Direct Bilirubin (0-0.2) mg/dl AST (13-39) U/L ALT (7-52) U/L Alkaline Phosphatase (34-104) U/L Ammonia 45.0 (18-72) umol/L Lactate Dehydrogenase (86-244) U/L Troponin I High Sens (0-14) pg/ml Total Protein (6.0-8.3) gm/dl Albumin (3.4-5.0) gm/dl Globulin (2.5-4.0) gm/dl Albumin/Globulin Ratio (0.9-2) Lipase (11-82) U/L Vitamin B12 Folate Procalcitonin (0-0.5) ng/ml Urine Color Urine Appearance (Clear) Urine pH (4.5-7.5) Ur Specific [place] (1.000-1.030) Urine Protein (Negative) Urine Glucose (UA) (Negative) Urine Ketones (Negative) Urine Blood (Negative) Urine Nitrite (Negative) Urine Bilirubin (Negative) Urine Urobilinogen (Negative) Ur Leukocyte Esterase (Negative) Urine WBC (Auto) (0-5) /hpf Urine RBC (Auto) (0-2) /hpf U Hyaline Cast (Auto) (0-2) /lpf U Epithel Cells (Auto) (0-2) /hpf Urine Bacteria (Auto) (None Seen) Fluid Neutrophils % 7 % Fluid Lymphocytes % 37 % Fluid Meso/Macro/[place] % 56 % Fluid Comment Peritoneal Color Yellow Peritoneal Appearance Slightly Hazy Peritoneal WBC (Auto) 235 (0-300) /ul Peritoneal RBC (Auto) < 2000 /uL Peritoneal Tot Protein < 3.0 gm/dl Peritoneal Albumin < 1.5 gm/dl Urine Opiates Screen (Neg) Ur Methadone, Qual (Neg) Urine Fentanyl Screen (Neg) Urine Barbiturates (Neg) Ur Phencyclidine (PCP) (Neg) U Amphetamin/Meth Scrn (Neg) Urine MDEA MDMA (Ecstasy) Screen (Neg) MDMA Urine MDMA U Benzodiazepines Scrn (Neg) Ur Cocaine Metabolite (Neg) U Marijuana (THC) Screen (Neg) Ethyl Alcohol mg/dL < 10.0 (<10.0) mg/dl 08/22/23 08/22/23 Range/Units 13:07 12:20 WBC 5.60 (4.8-10.8) K/ul RBC 2.67 L (4.20-5.40) M/uL Hgb 9.5 L (12.0-16.0) g/dl Hct 28.1 L (37.0-47.0) % MCV 105.2 H (80.0-100.0) fL MCH 35.6 H (25.0-34.0) pg MCHC 33.8 (32.0-36.0) g/dL RDW Std Deviation 49.3 H (36.4-46.3) fL RDW Coeff of Citlaly 12.7 (11.5-14.5) % Plt Count 193 (130-400) K/uL MPV 10.6 (9.4-12.4) fL Immature Gran % (Auto) 0.2 % Neut % (Auto) 65.9 % Lymph % (Auto) 22.3 % [place] % (Auto) 8.9 % Eos % (Auto) 1.4 % Baso % (Auto) 1.3 % Reticulocyte % (Auto) (0.50-2.00) % Neut # (Auto) 3.69 (1.40-6.50) K/uL Lymph # (Auto) 1.25 (1.20-3.40) K/uL [place] # (Auto) 0.50 (0.11-0.59) K/uL Eos # (Auto) 0.08 (0.00-0.50) K/uL Baso # (Auto) 0.07 (0.00-0.20) K/uL Reticulocyte # (0.020-0.100) 10^6/uL Immature Gran # (Auto) 0.01 (0.01-0.20) K/uL Haptoglobin PT 15.2 H (9.0-12.0) Seconds INR 1.4 H (0.9-1.1) Sodium 131 L (136-145) mmol/L Potassium 2.7 L (3.5-5.1) mmol/L Chloride 94 L (98-107) mmol/L Carbon Dioxide 29 (21-32) mmol/L Anion Gap 8 (3-11) BUN 4 L (6-23) mg/dl Creatinine 0.69 (0.6-1.2) mg/dl Est Cr Clr Drug Dosing 86.4 ml/min Est GFR ( Amer) 111.2 ml/min Est GFR (Non-Af Amer) 96.0 ml/min BUN/Creatinine Ratio 5.8 L (10-20) Glucose 75 (70-99(Fasting)) mg/dl Lactate 2.1 H* (0.4-2.0) mmol/L Calcium 7.9 L (8.6-10.3) mg/dl Magnesium (1.7-2.4) mg/dl Iron (35-150) mcg/dl TIBC Unsaturated IBC (155-355) mcg/dl Transferrin % Sat Ferritin Total Bilirubin 3.5 H (0.2-1.0) mg/dl Direct Bilirubin 1.5 H (0-0.2) mg/dl AST 63 H (13-39) U/L ALT 19 (7-52) U/L Alkaline Phosphatase 107 H (34-104) U/L Ammonia (18-72) umol/L Lactate Dehydrogenase (86-244) U/L Troponin I High Sens 5.3 (0-14) pg/ml Total Protein 7.5 (6.0-8.3) gm/dl Albumin 2.4 L (3.4-5.0) gm/dl Globulin 5.1 H (2.5-4.0) gm/dl Albumin/Globulin Ratio 0.5 L (0.9-2) Lipase 9 L (11-82) U/L Vitamin B12 Folate Procalcitonin 0.08 (0-0.5) ng/ml Urine Color Urine Appearance (Clear) Urine pH (4.5-7.5) Ur Specific [place] (1.000-1.030) Urine Protein (Negative) Urine Glucose (UA) (Negative) Urine Ketones (Negative) Urine Blood (Negative) Urine Nitrite (Negative) Urine Bilirubin (Negative) Urine Urobilinogen (Negative) Ur Leukocyte Esterase (Negative) Urine WBC (Auto) (0-5) /hpf Urine RBC (Auto) (0-2) /hpf U Hyaline Cast (Auto) (0-2) /lpf U Epithel Cells (Auto) (0-2) /hpf Urine Bacteria (Auto) (None Seen) Fluid Neutrophils % % Fluid Lymphocytes % % Fluid Meso/Macro/[place] % % Fluid Comment Peritoneal Color Peritoneal Appearance Peritoneal WBC (Auto) (0-300) /ul Peritoneal RBC (Auto) /uL Peritoneal Tot Protein gm/dl Peritoneal Albumin gm/dl Urine Opiates Screen (Neg) Ur Methadone, Qual (Neg) Urine Fentanyl Screen (Neg) Urine Barbiturates (Neg) Ur Phencyclidine (PCP) (Neg) U Amphetamin/Meth Scrn (Neg) Urine MDEA MDMA (Ecstasy) Screen (Neg) MDMA Urine MDMA U Benzodiazepines Scrn (Neg) Ur Cocaine Metabolite (Neg) U Marijuana (THC) Screen (Neg) Ethyl Alcohol mg/dL (<10.0) mg/dl PG Care Time/CCT Total # of Minutes Spent Total Time Spent with Patient: Total time spent is greater than 50% in coordination of care (as documented) at patient's floor/unit and/or counseling patient: Coding Level of Care Code 57810 INT INP/OBS CARE MIN Diagnoses Alcoholic cirrhosis of liver with ascites K70.31
--- OUTSIDE RECORDS SUMMARY | 2023-08-23 09:21 | External Medical Summary | Summary of Care ---
Author Name Unknown Organization [facility] Address [address] [place] [address] Phone [phone] Care Team Providers Care Senior Supplier Quality Engineer Name Role Phone Cj Watson MD Primary Care Provider [phone] Reason for Visit * Reason Onset Date Comments Test Results Lab 08/22/2023 Encounter Details Date Type Department Care Team (Late st Contact Info) Description 08/22/2023 Telephone Gastroenterology, [facility] [address] [place] [address] May Villalta CRNP [address] [place] [address] Test Results Lab Allergies Active Allergy Reactions Criticality Noted Date [...] differently:25 mg Oral QHS PRN, Anxiety,Needs to cloth picker, Reported on 06/21/2023 buPROPion HCl ER [...] mRNA, LNP-s, No Pre serve, 2-Dose Series ([employer]) 05/19/2020 Hepatitis B, 20+ yrs 06/20/2022,08/02/2007 Pneumococcal [...] Telephone Encounter - May Villalta CRNP - 08/22/2023 11:52 AM EDT Latest Reference Range & Units 08/22/23 09:21 Sodium 135 - 146 mmol/L 134 (L) Potassium 3.5 - 5.1 mmol/L 2.8 (L) Chloride 98 - 107 mmol/L 92 (L) CO2 22 - 32 mmol/L 31 BUN 6 - 20 mg/dL 3 (L) Creatinine 0.5 - 1.0 mg/dL 0.8 Estimated Glomerular Filtration Rate >=60 mL/min >90 Anion Gap 7 - 15 mmol/L 11 Glucose 70 - 120 mg/dL 75 Calcium 8.4 - 10.2 mg/dL 8.3 (L) Protein 6.0 - 8.3 g/dL 7.1 Albumin 3.8 - 5.0 g/dL 2.6 (L) AST 10 - 35 U/L 74 (H) ALT 10 - 35 U/L 24 Alkaline Phosphatase 35 - 130 U/L 127 Bilirubin, Total <=1.2 mg/dL 3.5 (H) (L): Data is abnormally low (H): Data is abnormally high KUB: Mild gas distention of several small bowel loops again seen. However there appears to be some fold thickening of several small bowel loops in the left abdomen since the prior study which could reflect enteritis or edema. CT recommended. Unable to get a hold of pt. Called her daughter Rachel regarding results above and recommend pt to [facility] ED for further evaluation After Rachel discussed with pt, she called back to our nurse's station to report they choose to go [facility] ED instead of [place]. Gave report to ED charge nurse (Keshia) GRACE Tan documented in this encounter Plan of Treatment Upcoming Encounters Date Type Department Care Team (Late st Contact Info) Description 08/23/2023 10:30 AM EDT Imaging Radiology [facility] [address] [facility] [place] [address] 09/11/2023 6:10 PM EDT Pharmacy Pharmacy, [facility] [address] [facility] [place] [address] Srikanth [facility] [address] [place] [address] 11/13/2023 3:15 PM EDT Imaging Radiology [facility] [address] [place] [address] 12/10/2023 9:00 AM EDT Office Visit Psychiatry, [facility] [address] [place] [address] Radha Hansen CRNP [address] [place] [address] 01/09/2024 10:30 AM EST Office Visit Gastroenterology, [facility] [address] [place] [address] May Villalta CRNP [address] [place] [address] Scheduled Procedures Name Priority Associated Diagnoses Date/Ti [...] 04/17/2017 Colorectal Cancer Screening 10/04/2025 Diabetes Screening 08/21/2026 08/22/2023, 0 08/20/2023, 06/21/2023, Additional history exists Lipid Panel 01/02/2027 01/02/2022 [...] filedocumented as of this encounter Care Teams Senior Supplier Quality Engineer Relationship Specialty Start Date End Date Cj Watson MD [address] [place] [address] PCP - General Family Medicine 08/18/19 documented as of this encounter
--- OUTSIDE RECORDS SUMMARY | 2023-08-23 09:21 | External Medical Summary | Summary of Care ---
Author Name Unknown Organization [facility] [address] [address] Phone [phone] Care Team Providers Care Area Attendant Name Role Phone Cj Watson MD Primary Care Provider [phone] Reason for Visit * Reason Comments Follow Up Pt here to f/u for c irrhosis. Recent xray. Pt denies SOB. Pt c/o adb discomfort. Encounter Details Date Type Department Care Team (Late st Contact Info) Description 08/22/2023 8:30 AM EDT Office Visit Gastroenterology, [facility] [address] [facility] [place] [address] May Villalta CRNP [address] [facility] [place] [address] Abdominal distension*; Alcoholic cirrhosis of liver with ascites (HCC); Leg edema Allergies Active Allergy Reactions Criticality Noted Date [...] mRNA, LNP-s, No Pre serve, 2-Dose Series ([employer]) 05/19/2020 Hepatitis B, 20+ yrs 06/20/2022,08/02/2007 Pneumococcal [...] Sign Reading Time Taken Comments Blood Pressure 112/74 08/22/2023 8:42 AM EDT Pulse 91 08/22/2023 8:42 AM EDT Temperature 36.7 C (98.1 F) 08/22/2023 8:42 AM ED T Respiratory Rate - - Oxygen Saturation 98% 08/22/2023 8:42 AM EDT Inhaled Oxygen Concentration - - Weight 68 kg (149 lb 14.4 oz) 08/22/2023 8:42 AM EDT Height - - Body Mass Index 25.73 06/25/2023 10:45 AM EDT documented in this encounter Functional Status Functional Status Response Date of Assess ment Does this person have seriou s difficulty walking or climbing stairs? Yes 01/02/2022 documented as of this encounter Progress Notes * May Villalta CRNP - 08/22/2023 11:22 AM EDT DATE OF SERVICE: 08/22/23 REFERRING PHYSICIAN: Aspen Rivera MD CC: Abdominal distension, leg swelling HPI: 08/22/23: Pt returning to clinic today on my direction due to c/o abd distension and leg welling. Labs 2 days ago showed Na 129, K 2.6. She would that moment reported that she is taking furosemide 40mg daily and spironolactone 25 mg twice daily. However today she states that she is taking furosemide 60 mg daily, Spironolactone 25mg daily. She has not picked up KCl 40meq supplements I prescribed.She has been using home K supplement. Her KUB also showed signs of mildly dilated small bowel loops, which may reflect enteritis, ileus or obstruction. Had her stop lactulose which she did, to start MiraLax 17 g twice daily. She had been doing this. She could not nut picker Xifaxan because it needed aprior Auth. She denies abdominal pain, nausea or vomiting. She admits to still continue alcohol consumption up to within the past week. 06/21/23: Patient has stopped taking her naltrexone [...] leg edema. 11/01/22: Patient undergoing [facility]. Started on naltrexone. Has not had any alcoholic beverages for the past 2 months. Admits he does not take her lactulose daily. Denies any confusion, dizziness, chest pain, shortness of breath, abdominal pain, nausea or vomiting, leg edema. Denies any gross signs of GI bleeding. 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 to help sleep. Melatonin makes her drowsy. Daughter, Rachel is with her today. 05/29/22: Patient admits [...] leg edema. 05/04/21: Patient was admitted at [facility] 04/26 to 04/30 for hypokalemia, ascites management. [...] and ascites accumulation. Patient was admitted at [facility] in 2019 for "acute liver failure", related to alcohol abuse. She reports that she was self medicating with alcohol for her lower back pain. She was established with [facility] in 2019, Dr. Hare, however was [...] fluid, likely reactive Results for MARIBEL TORIBIO C ( ) as of 04/25/2021 15:08 Ref. [...] Hepatic encephalopathy (HCC) Family History Problem Relation Name Age of Onset Heart disease Mother Diabetes Mother No Known Problems Father Hypertension Brother Breast Cancer No significant family history Past Surgical History: Procedure Laterality Date BREAST BIOPSY Left 2018 Benign DELIVERY x3 COLONOSCOPY 04/17/2017 suboptimal prep but no abnormality COLONOSCOPY, DIAGNOSTIC (RECTUM) 10/04/2022 fair prep, repeat 3 yrs / COLONOSCOPY FLEXIBLE PROXIMAL DIAGNOSTIC performed by Flores Montalvo DO at END[facility]COPY [facility] EGD, FLEXIBLE, DIAGNOSTIC 05/18/2021 Portal hypertensive gastropathy, eso varices, repeat 1 yr / ESOPHAGOGASTRODUODENOSCOPY (EGD), FLEXIBLE, TRANSORAL, DIAGNOSTIC performed by Paola Marin MD at [facility]COPY [facility] EGD, FLEXIBLE, DIAGNOSTIC 10/04/2022 eso varices, portal hypertensive gastropathy, repeat 1 yr / ESOPHAGOGASTRODUODENOSCOPY (EGD), FLEXIBLE, TRANSORAL, DIAGNOSTIC performed by Flores Montalvo DO at [facility]COPY [facility] EGD, FLEXIBLE, DIAGNOSTIC N/A 05/31/2022 [facility], EGD, lg esophageal varices with red federico sign, portal hypertensice gastropathy / no specimenscollected / 3 month follow up EGD, FLEXIBLE, DIAGNOSTIC 06/25/2023 ESOPHAGOGASTRODUODENOSCOPY (EGD), FLEXIBLE, TRANSORAL, DIAGNOSTIC performed by Juan Manuel Fierro MD at [facility]COPY [facility] EGD, W/ENDOSCOPIC US 05/18/2021 mild steatohepatitis / ESOPHAGOGASTRODUODENOSCOPY (EGD), FLEXIBLE, TRANSORAL, ENDOSCOPIC ULTRASOUNDperformed by Paola Marin MD at [facility]COPY [facility] Social History Tobacco Use Smoking status: Never Smokeless tobacco: Never Vaping Use Vaping status: Never Used Substance Use Topics Alcohol use: Yes Comment: [...] Capsule by mouth once a week. Wednesdays Magnesium Oxide 400 MG Oral Capsule Take 1 Capsule by mouth in the morning and 1 Capsule before bedtime. Take by mouth 400 mg in the morning AND 400 mg before bedtime.. 60 Capsule 5 Ferrous Sulfate 325 (65 Fe) MG Oral Tablet (Feosol) Take 1 Tablet by mouth in the morning and 1 Tablet before bedtime. 60 Tablet 11 NIFEdipine 10 MG Oral Capsule (Procardia) TAKE ONE CAPSULE BY MOUTH EVERY DAY IN THE MORNING. (Patient taking differently: "As needed") 30 Capsule 5 Omeprazole 40 MG Oral Capsule Delayed Release [...] BY MOUTH EVERY MORNING 180 Tablet 1 hydrOXYzine HCl 25 MG Oral Tablet Take 1 Tablet by mouth at bedtime as needed for Anxiety. (Patienttaking differently: Take 1 Tablet by mouth at bedtime as needed for Anxiety. Needs to nut picker) 30 Tablet 2 buPROPion HCl ER (XL) 150 MG Oral Tablet Extended Release 24 Hour (Wellbutrin XL) TAKE 1 TABLET BY MOUTH EVERY MORNING 90 Tablet 3 Gabapentin 800 MG Oral Tablet (Neurontin) TAKE 1 TABLET BY MOUTH THREE TIMES DAILY EVERY MORNING, AT NOON, AND BEFORE BEDTIME 270 Tablet 1 Potassium Chloride Cheryl ER 20 MEQ Oral Tablet Extended Release Take 2 Tablets by mouth in the morning. 60 Tablet 1 Sucralfate 1 GM Oral Tablet (Carafate) (Patient not taking: Reported on 08/22/2023) Albumin Human 25 % Intravenous Solution 25G IV pre-paracentesis followed by 25 G IV post paracentesis. May run at 100mL/hr. (Patient not taking: Reported on 11/01/2022) 200 mL 0 Lidocaine 5 % External Patch (Lidoderm) daily. (Patient not taking: Reported on 01/30/2023) traMADol HCl 50 MG Oral Tablet (Ultram) 1 Tablet. (Patient not taking: Reported on 06/21/2023) Naltrexone HCl 50 MG Oral Tablet (Revia) 1 Tablet in the morning. (Patient not taking: Reported on 06/21/2023) busPIRone HCl 5 MG Oral Tablet (Buspar) Take 1 Tablet by mouth in the morning and 1 Tablet at noon and 1 Tablet before bedtime. Take 7.5 mg every 8 hours as needed for anxiety. (Patient not taking: Reported on 08/22/2023) rifAXIMin 550 MG Oral Tablet (Xifaxan) Take 1 Tablet by mouth in the morning and 1 Tablet before bedtime. (Patient not taking: Reported on 08/22/2023) 60 Tablet 2 No current facility-administered medications for this visit. REVIEW OF SYSTEMS: See HPI above; All other findings negative. EXAM: Filed Vitals: 08/22/23 0842 BP: 112/74 Pulse: 91 Temp: 36.7 C (98.1 F) SpO2: 98% Weight: 68 kg (149 lb 14.4 oz) GENERAL: Well developed and well nourished in no acute distress. SKIN: No rashes, ulcers, jaundice or spider angiomata. HEENT: Normocephalic, sclera clear. NECK: Supple, trachea midline, no JVD LUNGS: Clear to auscultation bilaterally, no respiratory distress or accessory muscles used. HEART: Regular rate & rhythm, no murmurs and no gallops. ABDOMEN: + distended, no fluid wave, non tender, BS present. EXTREMITIES: No palmar erythema, +2 pitting edema on bilateral LE , no skin discoloration, no clubbing, no cyanosis. NEURO: No lateralizing findings. Sensory/Motor grossly normal. ASSESSMENT AND PLAN: Maribel Toribio is a 58 year old female, w hx of ETOH abuse, decompensated cirrhosis w ascites, grade I varices w red federico sign (banded 05/2022), hyponatremia and elevated LFTs. MELD 20. She was evaluated by [facility] Transplant team, though not listed as MELD decreased from 15 to 11 at time of evaluation. She unfortunately relapsed using ETOH. + anxiety, depression, using ETOH w Advil PM to help her sleep. Currently having increased abd distension and leg edema. Labs showed hyponatremia + hypokalemia, enteritis vs ileus. - STAT labs today: CMP - STAT KUB today - US to check for ascites. - Diuretics: Lasix 40mg + Spironolactone - Initiate auth for Xifaxan 550mg bid; continue to hold Lactulose - Last EGD 06/2023: grade 1; PHG. Need repeat EGD next year - Last Colonoscopy 10/2022: hemorrhoids, portal hypertensive colopathy. Recall in 2025 - Lasix to 40mg daily + Spironolactone 50mg daily. - Hep A immunity: not immune; encourage vaccination - Hep B immunity: immune - HCC screening [id number] (u/s; AFP): due 10/2023 - Encouraged to abstain from ETOH, illicit [...] service in review of patient's record, and previously obtained information in person and appropriate medical visit, discussion and education of plan, withpatient and/or caregiver, placing orders for tests/referral/procedures as medically necessary and documentation of pertinent clinical information in patient's medical records for their visit today. RETURN TO CLINIC: 1 months or sooner prn [facility], [facility] documented in this encounter Nursing Notes * Vickie Lawrence CMA - 08/22/2023 8:42 AM EDT Chief Complaint Patient presents with Follow Up Pt here to f/u for cirrhosis. Recent xray. Pt denies SOB. Pt c/o adb discomfort. documented in this encounter Plan of Treatment Upcoming Encounters Date Type Department Care Team (Late st Contact Info) Description 08/23/2023 10:30 AM EDT [address] [address] 09/11/2023 6:10 PM EDT [address] [address] [facility] [address] [address] 11/13/2023 3:15 PM EDT Imaging Radiology [facility] 1st Floor, [address] [place] [address] 12/10/2023 9:00 AM EDT Office Visit Psychiatry, [facility] [address] [facility] [place] [address] Radha Hansen CRNP [address] [place] [address] 01/09/2024 10:30 AM EST Office Visit Gastroenterology, [facility] [address] [facility] [address] [address] May [facility]alta [facility] [address] Scheduled Orders Name Type Priority Associated Diagnoses Orde r Schedule US ABDOMEN LIMITED Medical Imaging STAT Alcoholic cirrhosis of liver with ascites (HCC) Ordered: 08/22/2023 Scheduled Procedures Name Priority Associated Diagnoses Date/Ti [...] Procedure Name Priority Date/Time Associated Diagnosis Comments XR ABDOMEN 1 VIEW STAT 08/22/2023 9:2 0 AM EDT Abdominal distension documented in this encounter Results * (ABNORMAL) COMPREHENSIVE METABOLIC PANEL (08/22/2023 9:21 AM EDT) BUN 3(L) 6 - 20 mg/dL 08/22/2023 10:42 AM EDT LABORATORY [facility] 57-10 Creatinine 0.8 0.5 - 1.0 mg/dL 08/22/2023 10:42 AM EDT LABORATORY [facility] 57-10 Estimated Glomerular Filtration Rate >90 >=60 mL/min 08/22/2023 10:42 AM EDT LAB[facility] [place] 57-10 Comment:eGFR is calculated b ased on the CKD-EPI 2020 equation Sodium 134(L) 135 - 146 mmol/L 08/22/2023 10:42 AM EDT LABORATORY [facility] 57-10 Potassium 2.8(L) 3.5 - 5.1 mmol/L 08/22/2023 10:42 AM EDT LABORATORY [facility] 57-10 Chloride 92(L) 98 - 107 mmol/L 08/22/2023 10:42 AM EDT LABORATORY [facility] 57-10 CO2 31 22 - 32 mmol/L 08/22/2023 10:42 AM EDT LABORATORY [facility] 57-10 Anion Gap 11 7 - 15 mmol/L 08/22/2023 10:42 AM EDT LABORATORY [facility] 57-10 Glucose 75 70 - 120 mg/dL 08/22/2023 10:42 AM EDT LAB[facility]ORY [place] 57-10 Albumin 2.6(L) 3.8 - 5.0 g/dL 08/22/2023 10:42 AM EDT LABORATORY [facility] 57-10 AST 74(H) 10 - 35 U/L 08/22/2023 10:42 AM EDT LABORATORY [facility] 57-10 Alkaline Phosphatase 127 35 - 130 U/L 08/22/2023 10:42 AM EDT LABORATORY [facility] 57-10 Bilirubin, Total 3.5(H) <=1.2 mg/dL 08/22/2023 10:42 AM EDT LABORATORY [facility] 57-10 Calcium 8.3(L) 8.4 - 10.2 mg/dL 08/22/2023 10:42 AM EDT LAB[facility]ORY [place] 57-10 Protein 7.1 6.0 - 8.3 g/dL 08/22/2023 10:42 AM EDT LAB[facility] [place] 57-10 ALT 24 10 - 35 U/L 08/22/2023 10:42 AM EDT LABORATORY [place] 57-10 Blood Venous blood specimen / Unknown Venipuncture / Unknown 08/22/2023 9:21 AM EDT 08/22/2023 9:21 AM EDT May Villalta GRACE LAB BLOOD ORDER [facility] [place] 57-10 [address] [facility] [address] * XR ABDOMEN 1 VIEW (08/22/2023 9:20 AM EDT) Anatomical Region Laterality Modality Abdomen, Pelvis Digital Radiogra phy 08/22/2023 10:0 2 AM EDT Impressions 08/22/2023 10:00 AM EDT IMPRESSION Mild gas distention of several small bowel loops again seen. However there appears to be some fold thickening of several small bowel loops in the left abdomen since the prior study which could reflect enteritis or edema. CT recommended. Narrative 08/22/2023 10:00 AM EDT EXAM XR ABDOMEN 1 VIEW-08/22/2023 9:20 am HISTORY re-eval bowel distension COMPARISON 08/20/2023 TECHNIQUE Multiple views of the abdomen FINDINGS No indirect evidence of free air. Mild gas distention of several small bowel loops again seen. However now there appears to be some fold thickening of several loops of small bowel left abdomen. Recommend CT scan. No mass effect within the abdomen. No radiopaque calculi. Disc and bony degenerative changes lower lumbar spine. Procedure Note Marco A Horton MD - 08/22/2023 EXAM XR ABDOMEN 1 VIEW-08/22/2023 9:20 am HISTORY re-eval bowel distension COMPARISON 08/20/2023 TECHNIQUE Multiple views of the abdomen FINDINGS No indirect evidence of free air. Mild gas distention of several smallbowel loops again seen. However now there appears to be some foldthickening of several loops of small bowel left abdomen. Recommend CTscan. No mass effect within the abdomen. No radiopaque calculi. Discand bony degenerative changes lower lumbar spine. IMPRESSION IMPRESSION Mild gas distention of several small bowel loops again seen. Howeverthere appears to be some fold thickening of several small bowel loops inthe left abdomen since the prior study which could reflect enteritis oredema. CT recommended. May [facility] ([facility]) documented in this encounter Visit Diagnoses Diagnosis Abdominal distension- Primary Flatulence, eructation, and gas pain Alcoholic cirrhosis of liver with ascites (HCC) Alcoholic cirrhosis of liver Leg edema Edema documented in this encounter Care Teams Area Attendant Relationship Specialty Start Date End Date Cj Watson MD [address], [place] [id number] PCP - General Family Medicine 08/18/19 documented as of this encounter
--- OUTSIDE RECORDS SUMMARY | 2023-08-23 09:22 | External Medical Summary | Summary of Care ---
Author Name Unknown Organization [facility] Address [address] [facility] [place] [address] Phone [phone] Care Team Providers Care Quality Assurance Director Name Role Phone Cj Watson MD Primary Care Provider [phone] Reason for Visit * Reason Onset Date Comments Pre Cert/Prior Auth 08/22/2023 Encounter Details Date Type Department Care Team (Late st Contact Info) Description 08/22/2023 Telephone Gastroenterology, [facility] [address] [place] [address] May Villalta CRNP [address] [place] [address] Pre Cert/Prior Auth Allergies Active Allergy Reactions [...] differently:25 mg Oral QHS PRN, Anxiety,Needs to belt picker, Reported on 06/21/2023 buPROPion HCl ER [...] mRNA, LNP-s, No Pre serve, 2-Dose Series ([employer]) 05/19/2020 Hepatitis B, 20+ yrs 06/20/2022,08/02/2007 [...] Telephone Encounter - Apryl Moise LPN - 08/22/2023 10:43 AM EDT This was started yesterday by Frances Elaine, PT1 * Telephone Encounter - May Villalta CRNP - 08/22/2023 10:10 AM EDT Nurses - pls assist with Xifaxan prior auth. GRACE Tan documented in this encounter Plan of Treatment Upcoming Encounters Date Type Department Care Team (Late st Contact Info) Description 08/23/2023 10:30 AM EDT Imaging Radiology [facility] [address] [place] [address] 09/11/2023 6:10 PM EDT Pharmacy Pharmacy, [facility] [address] [place] [address] [facility] [address] [place] [address] 11/13/2023 3:15 PM EDT Imaging Radiology [facility] 1st Floor, [place] [address] [place] [address] 12/10/2023 9:00 AM EDT Office Visit Psychiatry, [facility] [address] [facility] [place] [address] Radha Hansen CRNP [address] [facility] [place] [address] 01/09/2024 10:30 AM EST Office Visit Gastroenterology, [facility] [address] [place] [address] May Villalta CRNP [address] [address] Scheduled Procedures Name Priority Associated Diagnoses Date/Ti [...] filedocumented as of this encounter Care Teams Quality Assurance Director Relationship Specialty Start Date End Date Cj Watson MD [address] [place] [facility] [place] [facility] [place] [address] PCP - General Family Medicine 08/18/19 documented as of this encounter
--- OUTSIDE RECORDS SUMMARY | 2023-08-23 09:22 | External Medical Summary | Summary of Care ---
Author Name Unknown Organization [facility] Address [address] [facility] [place] [address] Phone [phone] Care Team Providers Care Psychiatric Social Worker Name Role Phone Cj Watson MD Primary Care Provider [phone] Reason for Visit * Reason Onset Date Comments Pre Cert/Prior Auth 08/21/2023 Encounter Details Date Type Department Care Team (Late st Contact Info) Description 08/21/2023 Telephone Gastroenterology, [facility] [address] [place] [address] May Villalta CRNP [address] [place] [address] Pre Cert/Prior Auth Allergies Active Allergy Reactions [...] to picket [employer], Reported on 06/21/2023 buPROPion HCl ER (XL) [...] Additional Information Patient not taking.Reported on 08/22/2023 rifAXIMin 550 MG Oral Tablet (Xifaxan) Take [...] Encounter - Apryl Moise LPN - 08/22/2023 11:45 AM EDT Gastro Pre-Cert Request Specialty Medication: No. Medication/Disease State Information: Medication: rifAXINIMin 550mg Diagnosis (including ICD-10): K70.31 Site of care: Self-administered - route pre-cert request to [id number] Office Information: Prescriber: GRACE Motley "Xray showed small bowel loop dilation. Pt reports abd distension but passing flatus and stools K 2.9, Na 129. She took extra Furosemide under my direction last weekend. Currently on Furosemide 40mg, Spironolactone 25mg bid. She denies palpitation, chest pain. Advised the following: - Stop Lactulose - Start Miralax 17g po bid - Start Xifaxan 550mg bid - KCl 40mg PO daily " * Telephone Encounter - Frances Elaine transplant worker - 08/21/2023 10:11 AM EDT Pharmacy calling to inform doctor that the patient's insurance will not pay for this medication without a completed prior authorization. Did confirm this information with the pharmacy. Pt's current insurance information is as follows: Patient name: Anh Toribio ID number: [id number] BIN number: [id number] PCN number: [id number] Group number: [id number] Subscriber name: Anh Toribio Primary or Secondary Insurance:Primary Medication: Xifaxan Reason for Request: prior auth Pharmacy and phone number: [id number] [phone] Rx plan and phone number: [place] [phone] Is this a new medication for the patient? Yes What alternative medications does the pharmacy have in stock?: N/A Thank you, Frances Elaine Bindery Chief I [facility] 08/21/2023,10:11 AM documented in this encounter Plan of Treatment Upcoming Encounters Date Type Department Care Team (Susan Contact Info) Description 08/23/2023 10:30 AM EDT Imaging Radiology [facility] [place] [address] 09/11/2023 6:10 PM EDT Pharmacy Pharmacy, [facility] [address] [facility] [address] [place] [address] [facility] [address] [place] [address] 11/13/2023 3:15 PM EDT Imaging Radiology [facility] 1st Floor, [place] [facility] [place] [address] 12/10/2023 9:00 AM EDT Office Visit Psychiatry, [facility] [address] [place] [address] Radha Hansen CRNP [address] [place] [address] 01/09/2024 10:30 AM EST Office Visit Gastroenterology, [facility] [place] [address] May Villalta CRNP [address] [place] [address] Scheduled Procedures Name Priority Associated Diagnoses Date/Ti [...] filedocumented as of this encounter Care Teams Psychiatric Social Worker Relationship Specialty Start Date End Date Cj Watson MD [address] [place] [facility] [place] [address] PCP - General Family Medicine 08/18/19 documented as of this encounter
--- OUTSIDE RECORDS SUMMARY | 2023-08-23 09:22 | External Medical Summary | Summary of Care ---
Author Name Unknown Organization [facility] Address [address] [facility] [place] [address] Phone [phone] Care Team Providers Care Ophthalmic Medical Technician Name Role Phone Cj Watson MD Primary Care Provider [phone] Reason for Visit * Reason Onset Date Comments Pre Cert/Prior Auth 08/21/2023 Encounter Details Date Type Department Care Team (Late st Contact Info) Description 08/21/2023 Telephone Gastroenterology, [facility] [address] [place] [address] May Villalta CRNP [address] [place] [address] Pre Cert/Prior Auth Allergies Active Allergy Reactions [...] differently:25 mg Oral QHS PRN, Anxiety,Needs to crop picker, Reported on 06/21/2023 buPROPion HCl ER [...] care: Self-administered - route pre-cert request to [id number] Office Information: Prescriber: GRACE Motley "Xray showed [...] " * Telephone Encounter - Frances Elaine cnc lathe machinist - 08/21/2023 10:11 AM EDT Pharmacy calling to inform doctor that the patient's insurance will not pay for this medication without a completed prior authorization. Did confirm this information with the pharmacy. Pt's current insurance information is as follows: Patient name: Anh Toribio ID number: [id number] BIN number: [id number] PCN number: [id number] Group number: [id number] Subscriber name: Anh Toribio Primary or Secondary Insurance:Primary Medication: Xifaxan Reason for Request: prior auth Pharmacy and phone number: [id number] [phone] Rx plan and phone number: [place] [phone] Is this a new medication for the patient? Yes What alternative medications does the pharmacy have in stock?: N/A Thank you, Frances Elaine Belt Cleaner [facility] 08/21/2023,10:11 AM documented in this encounter Plan of Treatment Upcoming Encounters Date Type Department Care Team (Susan Contact Info) Description 08/23/2023 10:30 AM EDT Imaging Radiology [facility] [address] [facility] [facility] [place] [address] 09/11/2023 6:10 PM EDT Pharmacy Pharmacy, [facility] [address] [facility] [place] [address] Srikanth [facility] [address] [facility] [place] [address] 11/13/2023 3:15 PM EDT Imaging Radiology [facility] 1st Floor, [place] [address] [facility] [place] [address] 12/10/2023 9:00 AM EDT Office Visit Psychiatry, [facility] [address] [place] [address] Radha Hansen CRNP [address] [place] [address] 01/09/2024 10:30 AM EST Office Visit Gastroenterology, [facility] [address] [facility] [place] [address] May Villalta CRNP [address] [place] [address] Scheduled Procedures Name Priority Associated Diagnoses Date/Ti [...] filedocumented as of this encounter Care Teams Ophthalmic Medical Technician Relationship Specialty Start Date End Date Cj Watson MD [address] [place] [facility] [place] [address] PCP - General Family Medicine 08/18/19 documented as of this encounter
--- OUTSIDE RECORDS SUMMARY | 2023-08-23 09:22 | External Medical Summary | Summary of Care ---
Author Name Unknown Organization [facility] Address [address] [facility] [place] [address] Phone [phone] Care Team Providers Care Euclid Operator Name Role Phone Cj Watson MD Primary Care Provider [phone] Reason for Visit * Reason Onset Date Comments Test Results Lab 08/22/2023 Encounter Details Date Type Department Care Team (Late st Contact Info) Description 08/22/2023 Telephone Gastroenterology, [facility] [address] [place] [address] May Villalta CRNP [address] [place] [address] Test Results Lab Allergies Active Allergy Reactions [...] QHS PRN, Anxiety,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 ED for further evaluation After Rachel discussed with pt, she called back to our nurse's station to report they choose to go [facility] ED instead of [place]. Gave report to ED charge nurse (Keshia) GRACE Tan documented in this encounter Plan of Treatment Upcoming Encounters Date Type Department Care Team (Late st Contact Info) Description 08/23/2023 10:30 AM EDT Imaging Radiology [facility] [address] [facility] [place] [address] 09/11/2023 6:10 PM EDT Pharmacy Pharmacy, [facility] [address] [facility] [place] [address] Srikanth [facility] [address] [place] [address] 11/13/2023 3:15 PM EDT Imaging Radiology [facility] [facility] [address] [place] [address] 12/10/2023 9:00 AM EDT Office Visit Psychiatry, [facility] [address] [place] [address] Radha Hansen CRNP [address] [place] [address] 01/09/2024 10:30 AM EST Office Visit Gastroenterology, [facility] [address] [place] [address] May Villalta CRNP [address] [place] [address] Scheduled Procedures Name Priority Associated Diagnoses Date/Ti [...] filedocumented as of this encounter Care Teams [place]ucl[place] Operator Relationship Specialty Start Date End Date Cj Watson MD [address] [place] [address] PCP - General Family Medicine 08/18/19 documented as of this encounter
[2023-08-23 09:57] LABS: Anion Gap 5 (3-11); BUN Creatinine Ratio 5.3 (10-20); Blood Urea Nitrogen 3 mg/dl (6-23); Calcium 7.7 mg/dl (8.6-10.3); Carbon Dioxide 30 mmol/L (21-32); Chloride 98 mmol/L (98-107); Creatinine Clr Calc Pharmacy 96.8 ml/min; Est GFR (African American) 118.4 ml/min; Est GFR (Non-African American) 102.2 ml/min; Glucose 86 mg/dl (70-99(Fasting)); Potassium 3.5 mmol/L (3.5-5.1); Sodium 133 mmol/L (136-145)
[2023-08-23 09:58] LABS: Alanine Aminotransferase 15 U/L (7-52); Albumin Level 2.4 gm/dl (3.4-5.0); Aspartate Aminotransferase 51 U/L (13-39); Bilirubin,Total 3.2 mg/dl (0.2-1.0); Magnesium 2.4 mg/dl (1.7-2.4); Total Protein 6.6 gm/dl (6.0-8.3)
[2023-08-23 09:59] LABS: Albumin Globulin Ratio 0.6 (0.9-2); Alkaline Phosphatase 89 U/L (34-104); Globulin 4.2 gm/dl (2.5-4.0)
[2023-08-23] MEDS: POTASSIUM CHLORIDE CRTAB 20 MEQ TABCR PO STA ×2 (10:21→16:11)
[2023-08-23] MEDS: FUROSEMIDE 40 MG/4 ML VIAL IV ONE (16:12)
[2023-08-23] MEDS: POLYETHYLENE (MIRALAX) 17 GM PACK PO ONE (16:12)
[2023-08-23] MEDS: ALBUMIN 25% 25 GM/100 ML VIAL IV ONE (16:14)
[2023-08-23 18:25] LABS: Folate (Folic Acid),Ser orPlas 10.69 ng/ml (>5.38)
[2023-08-23] MEDS ORDERED: POTASSIUM CHLORIDE CRTAB 20 MEQ TABCR PO ONE (22:20)
[2023-08-24 07:29] LABS: Hematocrit (blood only) 28.6 % (37.0-47.0); Hemoglobin 9.7 g/dl (12.0-16.0); Mean Corpuscular Hemoglobin 36.1 pg (25.0-34.0); Mean Corpuscular Hgb Conc 33.9 g/dL (32.0-36.0); Mean Corpuscular Volume 106.3 fL (80.0-100.0); Mean Platelet Volume 10.4 fL (9.4-12.4); Platelet Count 173 K/uL (130-400); RDW Coefficient of Variation 13.2 % (11.5-14.5); RDW Standard Deviation 51.5 fL (36.4-46.3); Red Blood Count 2.69 M/uL (4.20-5.40); White Blood Count 4.69 K/ul (4.8-10.8)
[2023-08-24 07:47] LABS: INR 1.5 (0.9-1.1); Prothrombin Time 15.4 Seconds (9.0-12.0)
[2023-08-24 08:10] LABS: Alanine Aminotransferase 14 U/L (7-52); Albumin Globulin Ratio 0.5 (0.9-2); Albumin Level 2.3 gm/dl (3.4-5.0); Alkaline Phosphatase 86 U/L (34-104); Anion Gap 3 (3-11); BUN Creatinine Ratio 5.1 (10-20); Bilirubin,Total 3.1 mg/dl (0.2-1.0); Blood Urea Nitrogen 3 mg/dl (6-23); Calcium 8.1 mg/dl (8.6-10.3); Carbon Dioxide 29 mmol/L (21-32); Chloride 100 mmol/L (98-107); Creatinine Clr Calc Pharmacy 101.1 ml/min; Est GFR (African American) 117.1 ml/min; Globulin 4.2 gm/dl (2.5-4.0); Glucose 74 mg/dl (70-99(Fasting)); Magnesium 2.2 mg/dl (1.7-2.4); Phosphorus 2.6 mg/dl (2.5-4.9); Sodium 132 mmol/L (136-145); Total Protein 6.5 gm/dl (6.0-8.3)
--- NOTE | 2023-08-24 11:26 | Hospitalist Progress Note ---
Date of Service August 24, 2023 Assessment & Plan (1) Decompensated hepatic cirrhosis: (2) Abdominal ascites: (3) Hypokalemia: (4) Chronic hyponatremia: (5) Anemia: (6) Abnormal CT of the abdomen: Plan This is a 58-year-old female who has a significant past medical history of alcoholic cirrhosis, alcohol dependence, esophageal varices, chronic back pain, hypothyroidism, GERD and depression who presents to ER secondary to referral from GI. Alcoholic Cirrhosis - Decompensated Alcohol dependence - previously on naltrexone but stopped in June with relapse, last drink 2 days ago 1 glass of wine Esophageal varices Portal HTN CT abd./pelvis - 1. Thickening of the cecum and proximal colon may represent a nonspecific colitis. 2. Cirrhosis with ascites. Heterogeneous appearance of the liver with irregular contour including a mildly hypoenhancing prominence in the medial aspect of the right lobe. If not previously evaluated, nonemergent MRI can be performed. 3. Additional findings as above. Portal Vein doppler obtained - No acute findings in the abdominal vasculature. continue thiamine, folic acid pt with significant ascities S/p paracentesis in the ED on 08/21 w/ removal of 1700 mL of fluid, no SBP, follow cultx Started rifaximin per GI - outpt GI working on prior auth no encephalopathy Lasix and aldactone held on admission - plan to resume prior to discharge Received IV lasix yesterday, will cont. today , LE edema improved, abdomens still quite distended daily weights, low sodium diet, fluid restriction Hypokalemia likely in setting of diuretic use replete and monitor Chronic hyponatremia in setting of alcohol use, current fluid overload sodium 131, monitor UTI ucultx positive for GNB - cont. empiric rocephin for now - follow final cultx results Anemia anemia w/u hgb 9.5, iron panel, b12, folic acid and hemolysis work up given indirect bili > direct no signs of bleeding Last EGD 06/2624 grade 1 PHG last C scope 10/2022 PHC and hemorrhoids ? colitis on imaging CT a/p shows thickening of cecum concerning for possible colitis ; however pt does not have diarrhea monitor, may be portal colopathy GI consulted, as above Chronic Back pain continue gabapentin Alcohol dependence recently stopped naltrexone in June recommend cessation and consider restart naltrexone Abnormal imaging/incidental findings Cirrhosis with ascites. Heterogeneous appearance of the liver with irregular contour including a mildly hypoenhancing prominence in the medial aspect of the right lobe. If not previously evaluated, nonemergent MRI can be performed. Avascular necrosis of the bilateral femoral heads again noted. - Will need orthopedic f/u at discharge Atherosclerotic calcifications are seen. - will need atherosclerosis w/u at discharge DVT ppx: SCDS for now in setting of known varices and anemia FULL CODE PCP: Dr. Watson Admission and Anticipated Discharge Date Admission Date: August 22, 2023 Subjective Pt seen in follow up of decompensated cirrhosis Underwent paracentesis by ED provider, 1700 mL of fluid removed Sent from outpt GI clinic -> GI inpt consulted Started rifaximin UA concerning for UTI - started Rocephin, ucultx pending Currently laying in bed in NAD, reports feeling better. LE edema improved, abdomen still quite distended. Denies any fever, chills, chest pain, shortness of breath. Review of Systems Review of Systems: All systems reviewed & are unremarkable except as noted in Subjective Physical Exam Physical Exam: General Appearance: Moderately built and nourished, in NAD Head: normocephalic, Atraumatic Eyes: normal inspection, EOMI, +Icteric Neck: supple Respiratory/Chest: Normal breath sounds, CTA, No accessory muscle use Cardiovascular: S1, S2, No murmur Abdomen/GI: distended, Non tender, soft, Bowel sounds present Extremities/Musculoskeletal: normal inspection, + LE edema (improved) Neurologic/Psych: AAOX3, answers appropriately, speech fluent, moves extremities Skin: warm, dry, +Jaundice Results & Data Results & Data Vital Signs (Past 12 Hours) Vital Signs Temp Pulse Pulse Resp BP Pulse Ox O2 Del Method 08/24/23 07:56 88 08/24/23 07:44 37.2 C 87 16 101/68 95 Room Air 08/24/23 03:15 36.6 C 90 16 95/62 L 97 Room Air 08/24/23 01:01 92 H Laboratory Results 08/24/23 08/24/23 08/23/23 Range/Units 08:44 07:06 07:51 WBC 4.69 L (4.8-10.8) K/ul RBC 2.69 L (4.20-5.40) M/uL Hgb 9.7 L (12.0-16.0) g/dl Hct 28.6 L (37.0-47.0) % MCV 106.3 H (80.0-100.0) fL MCH 36.1 H (25.0-34.0) pg MCHC 33.9 (32.0-36.0) g/dL RDW Std Deviation 51.5 H (36.4-46.3) fL RDW Coeff of Citlaly 13.2 (11.5-14.5) % Plt Count 173 (130-400) K/uL MPV 10.4 (9.4-12.4) fL PT 15.4 H (9.0-12.0) Seconds INR 1.5 H (0.9-1.1) Sodium 132 L (136-145) mmol/L Potassium 4.0 TNP Chloride 100 (98-107) mmol/L Carbon Dioxide 29 (21-32) mmol/L Anion Gap 3 (3-11) BUN 3 L (6-23) mg/dl Creatinine 0.59 L (0.6-1.2) mg/dl Est Cr Clr Drug Dosing 101.1 ml/min Est GFR ( Amer) 117.1 ml/min Est GFR (Non-Af Amer) 101.0 ml/min BUN/Creatinine Ratio 5.1 L (10-20) Glucose 74 (70-99(Fasting)) mg/dl Calcium 8.1 L (8.6-10.3) mg/dl Phosphorus 2.6 (2.5-4.9) mg/dl Magnesium 2.2 (1.7-2.4) mg/dl Total Bilirubin 3.1 H (0.2-1.0) mg/dl AST 52 H TNP ALT 14 (7-52) U/L Alkaline Phosphatase 86 (34-104) U/L Total Protein 6.5 (6.0-8.3) gm/dl Albumin 2.3 L (3.4-5.0) gm/dl Globulin 4.2 H (2.5-4.0) gm/dl Albumin/Globulin Ratio 0.5 L (0.9-2) Vitamin B12 1484 H (180-914) pg/ml Folate 10.69 (>5.38) ng/ml Medications Administered Current Inpatient Medications Acetaminophen (Acetaminophen 500 Mg Tab) 500 mg PO Q6H PRN PRN Reason: pain Stop: 09/21/23 19:08 Last Admin: 08/23/23 06:18 Dose: 500 mg Al Hydrox/Mg Hydrox/Simethicone (Aluminum/Magnesium Susp 30 Ml Udc) 15 ml PO Q4H PRN PRN Reason: Dyspepsia Stop: 09/21/23 19:08 Bupropion HCl (Bupropion Xl 150 Mg Tabcr) 150 mg PO DAILY [facility] Stop: 09/22/23 08:59 Last Admin: 08/24/23 08:59 Dose: 150 mg Cyanocobalamin (Cyanocobalamin (B-12) 500 Mcg Tablet) 1,000 mcg PO QAM [facility] Stop: 09/22/23 08:59 Last Admin: 08/24/23 08:59 Dose: 1,000 mcg Ferrous Sulfate (Ferrous Sulfate 325 Mg Tab) 325 mg PO DAILY [facility] Stop: 09/22/23 08:59 Last Admin: 08/24/23 08:59 Dose: 325 mg Folic Acid (Folic Acid 1 Mg Tab) 1 mg PO QAM [facility] Stop: 09/22/23 08:59 Last Admin: 08/24/23 08:58 Dose: 1 mg Furosemide (Furosemide 40 Mg/4 Ml Vial) 40 mg IV ONE ONE Stop: 08/24/23 11:17 Gabapentin (Gabapentin 800 Mg Tab) 800 mg PO TID [facility] Stop: 09/21/23 20:59 Last Admin: 08/24/23 08:58 Dose: 800 mg Gabapentin (Gabapentin 400 Mg Cap) 400 mg PO TID [facility] Stop: 09/21/23 20:59 Last Admin: 08/24/23 08:58 Dose: 400 mg Hydroxyzine HCl (Hydroxyzine Hcl 10 Mg Tab) 10 mg PO HS PRN PRN Reason: Insomnia Stop: 09/21/23 20:01 Last Admin: 08/23/23 20:20 Dose: 10 mg Promethazine HCl 12.5 mg/ (Sodium Chloride) 50.5 mls @ 202 mls/hr IV Q6H PRN PRN Reason: Nausea And Vomiting Stop: 09/21/23 19:08 Ceftriaxone Sodium (Rocephin) 2,000 mg in 50 mls @ 100 mls/hr IV Q24H [facility] Stop: 09/02/23 07:59 Last Infusion: 08/24/23 09:47 Dose: Infused Albumin Human (Albumin 25%) 25 gm in 100 mls @ 50 mls/hr IV ONE ONE Stop: 08/24/23 13:16 Levothyroxine Sodium (Levothyroxine Sodium 150 Mcg Tablet) 150 mcg PO DAILYBB [facility] Stop: 09/22/23 06:29 Last Admin: 08/24/23 06:00 Dose: 150 mcg Magnesium Hydroxide (Magnesium Hydroxide Susp 30 Ml Udc) 30 ml PO Q12H PRN PRN Reason: Constipation Stop: 09/21/23 19:08 Last Admin: 08/22/23 21:16 Dose: 30 ml Magnesium Oxide (Magnesium Oxide 400 Mg Tab) 400 mg PO BID [facility] Stop: 09/21/23 20:59 Last Admin: 08/24/23 08:58 Dose: 400 mg Pantoprazole Sodium (Pantoprazole 40 Mg Tab) 40 mg PO BID [facility] Stop: 09/21/23 20:59 Last Admin: 08/24/23 08:58 Dose: 40 mg Polyethylene Glycol (Polyethylene (Miralax) 17 Gm Pack) 17 gm PO DAILY PRN PRN Reason: Constipation Stop: 09/21/23 19:08 Polyethylene Glycol (Polyethylene (Miralax) 17 Gm Pack) 17 gm PO DAILY [facility] Stop: 09/22/23 08:59 Last Admin: 08/24/23 08:58 Dose: 17 gm Rifaximin (Rifaximin 550 Mg Tablet) 550 mg PO BID [facility] Stop: 09/21/23 20:59 Last Admin: 08/24/23 08:58 Dose: 550 mg Thiamine HCl (Thiamine Hcl 100 Mg Tab) 100 mg PO QAM [facility] Stop: 09/22/23 08:59 Last Admin: 08/24/23 08:58 Dose: 100 mg
[2023-08-24] MEDS: ALBUMIN 25% 25 GM/100 ML VIAL IV ONE ×2 (11:36→18:30)
[2023-08-24] MEDS: POTASSIUM CHLORIDE CRTAB 20 MEQ TABCR PO STA ×2 (11:37→18:29)
[2023-08-24] MEDS: FUROSEMIDE 40 MG/4 ML VIAL IV ONE ×2 (11:37→18:30)
[2023-08-25 07:41] LABS: Albumin Globulin Ratio 0.7 (0.9-2); Albumin Level 2.6 gm/dl (3.4-5.0); BUN Creatinine Ratio 5.6 (10-20); Bilirubin,Total 2.9 mg/dl (0.2-1.0); Creatinine Clr Calc Pharmacy 102.2 ml/min; Est GFR (African American) 120.6 ml/min; Globulin 3.6 gm/dl (2.5-4.0); Magnesium 1.8 mg/dl (1.7-2.4); Phosphorus 2.7 mg/dl (2.5-4.9); Potassium 3.6 mmol/L (3.5-5.1); Total Protein 6.2 gm/dl (6.0-8.3)
[2023-08-25 07:46] LABS: Hematocrit (blood only) 26.8 % (37.0-47.0); Hemoglobin 8.8 g/dl (12.0-16.0); Mean Corpuscular Hemoglobin 35.3 pg (25.0-34.0); Mean Corpuscular Hgb Conc 32.8 g/dL (32.0-36.0); Mean Corpuscular Volume 107.6 fL (80.0-100.0); Mean Platelet Volume 10.3 fL (9.4-12.4); Platelet Count 168 K/uL (130-400); RDW Coefficient of Variation 12.9 % (11.5-14.5); Red Blood Count 2.49 M/uL (4.20-5.40); White Blood Count 4.33 K/ul (4.8-10.8)
[2023-08-25] MEDS: POTASSIUM CHLORIDE CRTAB 20 MEQ TABCR PO STA ×2 (09:12→12:02)
[2023-08-25] MEDS: ALBUMIN 25% 25 GM/100 ML VIAL IV ONE (10:59)
[2023-08-25] MEDS: FUROSEMIDE 40 MG/4 ML VIAL IV ONE (10:59)
--- NOTE | 2023-08-25 11:22 | Discharge Summary ---
Date of Service August 25, 2023 Admission HPI Per Admitting Provider This is a 58-year-old female who has a significant past medical history of alcoholic cirrhosis, alcohol dependence, esophageal varices, chronic back pain, hypothyroidism, GERD and depression who presents to ER secondary to referral from GI. Patient follows with Anibal BRUCE. She was seen and evaluated in clinic today due to increased abdominal distention and leg swelling. She had outpatient lab work 2 days ago which revealed a sodium of 129 and a potassium of 2.6. She currently is on a regimen of Lasix 40 mg daily and Aldactone 50 mg daily. Per outpatient notes she was actually taking 60 mg of Lasix today due to increased swelling. She was also prescribed oral potassium by outpatient provider; however, this was never picked up. She was also recently instructed to stop her lactulose and start MiraLAX due to constipation. She was also evaluated back in June by Anibal BRUCE and it was noted that she stopped taking her naltrexone and no longer goes to counseling. She also had relapsed on her alcohol use and has been having increased anxiety and depression. Patient reports increased lower extremity swelling and abdominal distention over the last 2 weeks. She does approximately 10 pound weight gain in the last 2 weeks. She admits to continue to consume alcohol approximately 1 glass of wine every few days. She recently has had no symptoms of withdrawal. She admits to trying to watch her sodium, but has been drinking a lot of water. She does complain of generalized abdominal pain but denies any nausea, vomiting or diarrhea. She tends to run on the constipated side. Typically bowels move every 2 to 3 days. Her last bowel movement was yesterday. She denies any melena or hematochezia. She further denies any fever, chills, sweats, lightheadedness, dizziness, chest pain, shortness breath, nausea, vomiting or hematemesis. She has been taking her medications as prescribed. In ED patient was hemodynamically stable. ED provider noted protuberant abdomen and significant ascites and therefore he was going to attempt a diagnostic paracentesis and hopeful for therapeutic as well. She was noted to be hypokalemic with a potassium of 2.7, sodium 131, elevated total bilirubin at 3.5, direct alumina 1.5, AST 63. Her ethyl alcohol was negative. CT a/p concerning for possible colitis and known cirrhosis with ascites. Admission Exam Per Admitting Provider General Appearance:Moderately built and nourished, no apparent distress Head: normocephalic, Atraumatic Eyes: normal inspection, EOMI, +Icteric Neck: supple, Trachea midline Respiratory/Chest: Normal breath sounds, CTA, No accessory muscle use Cardiovascular: S1, S2, No murmur Abdomen/GI:Firm, distended, Non tender, Bowel sounds present Extremities/Musculoskeletal:normal inspection, 3+ LE edema Neurologic/Psych:AAOX3, grossly no focal neurological deficits Skin: normal color, warm, +Jaundice Principal Diagnosis Decompensated liver cirrhosis with ascites s/p paracentesis UTI Discharge Exam General Appearance: Moderately built and nourished, in NAD Head: normocephalic, Atraumatic Eyes: normal inspection, EOMI, +Icteric Neck: supple Respiratory/Chest: Normal breath sounds, CTA, No accessory muscle use Cardiovascular: S1, S2, No murmur Abdomen/GI: distended (but improved), Non tender, soft, Bowel sounds present Extremities/Musculoskeletal: normal inspection, LE edema resolved Neurologic/Psych: AAOX3, answers appropriately, speech fluent, moves extremities Skin: warm, dry, +Jaundice Discharge Data Allergies Allergy/AdvReac Type Severity Reaction Status Date / Time Sulfa (Sulfonamide Allergy Intermediate Rash Verified 12/08/22 17:50 Antibiotics) tramadol AdvReac Mild NAUSEA Verified 12/08/22 17:50 Consultations 08/22/23 15:53 ED Decision to Admit Stat 08/22/23 16:34 Consult Gastroenterology Routine Ordered Studies 08/22/23 13:08 CT abd pelvis IV con only Stat FINDINGS: Lower chest: Bibasilar atelectasis versus scarring is seen. Liver: The liver is seen. There is prominence of the medial aspect of the right lobe of the liver. Gallbladder and biliary tree: No calcified gallstones. Normal caliber wall. No intra- or extrahepatic biliary ductal dilation. Pancreas: Unremarkable, no focal lesions. Spleen: Unremarkable. Adrenals: Unremarkable. Kidneys and ureters: Unremarkable. Bladder: Unremarkable. Reproductive organs: Unremarkable. Bowel: Diverticulosis is seen without diverticulitis. The appendix is normal. Thickening of the cecum and transverse colon noted. Lymph nodes Retroperitoneal: Unremarkable. Pelvic: Unremarkable. Mesenteric: Unremarkable. Peritoneum: Moderate ascites is seen. Vessels: Atherosclerotic calcifications are seen. Abdominal wall: Unremarkable. Bones: Degenerative changes in the visualized spine. Avascular necrosis of the bilateral femoral heads again noted. IMPRESSION: 1. Thickening of the cecum and proximal colon may represent a nonspecific colitis. 2. Cirrhosis with ascites. Heterogeneous appearance of the liver with irregular contour including a mildly hypoenhancing prominence in the medial aspect of the right lobe. If not previously evaluated, nonemergent MRI can be performed. 3. Additional findings as above. 08/23/23 US duplex portal hepatic veins Stat FINDINGS: Portal veins: Patent portal veins with normal direction of flow. Hepatic artery: Unremarkable. Normal flow on color and spectral Doppler imaging. Hepatic veins: Unremarkable. Normal flow on color and spectral Doppler imaging. Splenic vein: Unremarkable. Normal flow on color and spectral Doppler imaging. Other: Nodular contour of the liver suggestive of cirrhosis. Ascites noted. IMPRESSION: No acute findings in the abdominal vasculature. Cirrhotic liver with ascites. Hospital Course (1) Decompensated hepatic cirrhosis: (2) Abdominal ascites: (3) Hypokalemia: (4) Chronic hyponatremia: (5) Anemia: (6) Abnormal CT of the abdomen: Plan This is a 58-year-old female who has a significant past medical history of alcoholic cirrhosis, alcohol dependence, esophageal varices, chronic back pain, hypothyroidism, GERD and depression who presents to ER secondary to referral from GI. Alcoholic Cirrhosis - Decompensated Alcohol dependence - previously on naltrexone but stopped in June with relapse, last drink 2 days ago 1 glass of wine Esophageal varices Portal HTN CT abd./pelvis - 1. Thickening of the cecum and proximal colon may represent a nonspecific colitis. 2. Cirrhosis with ascites. Heterogeneous appearance of the liver with irregular contour including a mildly hypoenhancing prominence in the medial aspect of the right lobe. If not previously evaluated, nonemergent MRI can be performed. 3. Additional findings as above. Portal Vein doppler obtained - No acute findings in the abdominal vasculature. continue thiamine, folic acid pt with significant ascities S/p paracentesis in the ED on 08/21 w/ removal of 1700 mL of fluid, no SBP, foll ow cultx Started rifaximin per GI - outpt GI working on prior auth no encephalopathy Lasix and aldactone held on admission - plan to resume prior to discharge Treated with IV lasix while inpt, LE edema resolved, abdomen much less distended daily weights, low sodium diet, fluid restriction Hypokalemia likely in setting of diuretic use replete and monitor Chronic hyponatremia in setting of alcohol use, current fluid overload sodium 131, monitor UTI ucultx positive for E.coli - treated with rocephin while inpt -> switch to PO cefuroxime on DC Anemia anemia w/u hgb 9.5, iron panel, b12, folic acid and hemolysis work up given indirect bili > direct no signs of bleeding Last EGD 06/2624 grade 1 PHG last C scope 10/2022 PHC and hemorrhoids ? colitis on imaging CT a/p shows thickening of cecum concerning for possible colitis ; however pt does not have diarrhea monitor, may be portal colopathy GI consulted, as above Chronic Back pain continue gabapentin Alcohol dependence recently stopped naltrexone in June recommend cessation and consider restart naltrexone Abnormal imaging/incidental findings Cirrhosis with ascites. Heterogeneous appearance of the liver with irregular contour including a mildly hypoenhancing prominence in the medial aspect of the right lobe. If not previously evaluated, nonemergent MRI can be performed. Avascular necrosis of the bilateral femoral heads again noted. - Will need orthopedic f/u at discharge Atherosclerotic calcifications are seen. - will need atherosclerosis w/u at discharge Total Time Total Time Spent Total Time Spent (In Minutes): 40 Discharge Plan Discharge Items Patient Disposition: Home - Self-Care Reason For Visit: DECOMPENSATED CIRRHOSIS Discharge Diagnosis: Decompensated liver cirrhosis with ascites s/p paracentesis UTI Activity: Per Instructions section Non-emergency contact: Primary Care Provider and [employer] Call non-emergency contact if: you have any medication questions and your symptoms worsen Follow-up/Referrals: Cj Watson MD [Primary Care Provider] - Diet: Heart Healthy and Low Sodium (2gm) Fluids: 1500ml (6 cups) Addtl Attending Provider Instructions: Follow up with your primary care doctor and sonographer. Take all your medications as prescribed - including Xifaxan and potassium supplement. Take lasix 40 mg this afternoon and take lasix 80 mg tomorrow morning, then go back to daily lasix 40 mg daily as prescribed. Weigh yourself daily. Check your weight this afternoon when you come home from the hospital and then every morning. Keep a record of your weight - that way your providers can easily assess your fluid status as well. Finish antibiotic treatment for UTI. Pending Studies at Discharge: Yes Studies:: final blood cultx results , and peritoneal fluid cultx Stand-Alone Forms: My [facility], Smoking Cessation Medications and DC Order Prescriptions: New cefuroxime axetil 250 mg tablet 250 mg PO BID 3 Days Qty: 6 0RF Continued cyanocobalamin (vitamin B-12) [Vitamin B-12] 1,000 mcg Tablet 1,000 mcg PO QAM cholecalciferol (vitamin D3) [Vitamin D3] 1,000 unit Capsule 1,000 unit PO WE Rx Instructions: Sunday gabapentin 800 mg tablet 800 mg PO TID Rx Instructions: to give with 400mg tid for 1200mg total folic acid 1 mg Tablet 1 mg PO QAM Qty: 30 0RF bupropion HCl 150 mg tablet extended release 24 hr 150 mg PO DAILY spironolactone 25 mg Tablet 50 mg PO QAM Qty: 60 0RF Rx Instructions: take 50 mg daily. magnesium oxide 400 mg (241.3 mg magnesium) Tablet 400 mg PO BID Qty: 30 0RF levothyroxine [Synthroid] 150 mcg Tablet 150 mcg PO DAILYBB Qty: 30 0RF furosemide 40 mg tablet 40 mg PO DAILY omeprazole 40 mg capsule,delayed release(DR/EC) 40 mg PO BID Qty: 60 0RF ferrous sulfate [FeroSul] 325 mg (65 mg iron) tablet 325 mg PO DAILY thiamine HCl (vitamin B1) 100 mg Tablet 100 mg PO QAM Qty: 30 0RF lidocaine 5 % Adhesive Patch,Medicated 1 patch transdermal Q24H Qty: 30 0RF gabapentin 400 mg capsule 400 mg PO TID Rx Instructions: to go with 800mg to = 1200mg tid Discontinued lactulose 10 gram/15 mL solution 15 ml PO TID PRN (Reason: Constipation) Rx Instructions: currently on hold Discharge Orders: Discharge Order (Routine); Ordered 08/25/23 Ordered By: Venkat Rueda Admission Data Admit Date/Time: 08/22/23 15:56 Attending Provider: Venkat Rueda Admit Provider: Delroy Sales Primary Care Provider: Cj Watson Other Providers: Fadi Howard; Delroy Sales Other Interventions: Discharge Summary Assessment (RN) Last Done: 08/25/23 12:33
[2023-08-26 16:33] LABS: MDA negative; MDEA negative; MDMA (Ecstasy) Urine, Confirm negative
== END 2023-08-25 13:51 | disposition home or self-care (01) | DRG 433 ==
LOC: ED 12:04 → 2N 15:56 → SUATTDRO 15:56 → 2N 18:27